=== PATIENT | male | born 1970 | race African-American/Black ===

== ENCOUNTER → 2016-12-02 | Outpatient (CLI) | payer MEDICARE, MEDICAID ==
[2016-12-02 10:10] LABS: HEMATOCRIT 37.8 % (37.9-51.0); HEMOGLOBIN 12.2 g/dL (13.5-17.0); HGB HCT DIFFERENCE -1.2; MEAN CORPUSCULAR HEMOGLOBIN 27.9 pg (27.0-33.4); MEAN CORPUSCULAR HGB CONC 32.3 g/dL (32.0-36.0); MEAN CORPUSCULAR VOLUME 87 fl (80-97); RED BLOOD COUNT 4.37 10^6/uL (4.35-5.55); RED CELL DISTRIBUTION WIDTH 13.9 % (11.5-14.0); WHITE BLOOD COUNT 4.3 10^3/uL (4.0-10.5)
[2016-12-02 10:37] LABS: ALANINE AMINOTRANSFERASE 31 U/L (21-72); ALBUMIN 3.8 g/dL (3.5-5.0); ALKALINE PHOSPHATASE 134 U/L (38-126); ANION GAP 11 (5-19); ASPARTATE AMINO TRANSFERASE 25 U/L (17-59); BILIRUBIN,TOTAL 0.4 mg/dL (0.2-1.3); BLOOD UREA NITROGEN 21 mg/dL (7-20); CALCIUM 9.5 mg/dL (8.4-10.2); CARBON DIOXIDE 28 mmol/L (22-30); CHLORIDE 96 mmol/L (98-107); CREATININE RESULT 1.68 mg/dL (0.52-1.25); POTASSIUM 5.6 mmol/L (3.6-5.0); SODIUM 135.4 mmol/L (137-145); TOTAL PROTEIN 7.3 g/dL (6.3-8.2)
[2016-12-02 11:03] LABS: GLUCOSE 554 mg/dL (75-110)
== END ==
LOC: OD 08:52
PROVIDERS: ATTEND Internal Medicine Nephrology
DX: N18.3 Chronic kidney disease, stage 3 (moderate) (principal); R80.9 Proteinuria, unspecified; D64.9 Anemia, unspecified; E87.5 Hyperkalemia
CPT/HCPCS: 36415; 80053; 85027

== ENCOUNTER → 2016-12-08 | Outpatient (CLI) | payer MEDICARE, MEDICAID ==
[2016-12-08 12:58] LABS: ANION GAP 10 (5-19); BLOOD UREA NITROGEN 24 mg/dL (7-20); CALCIUM 9.6 mg/dL (8.4-10.2); CARBON DIOXIDE 26 mmol/L (22-30); CHLORIDE 96 mmol/L (98-107); CREATININE RESULT 1.72 mg/dL (0.52-1.25); POTASSIUM 5.9 mmol/L (3.6-5.0); SODIUM 132.2 mmol/L (137-145)
[2016-12-08 13:28] LABS: GLUCOSE 464 mg/dL (75-110)
== END ==
LOC: OD 11:12
PROVIDERS: ATTEND Internal Medicine Nephrology
DX: E87.5 Hyperkalemia (principal); E87.1 Hypo-osmolality and hyponatremia; E11.9 Type 2 diabetes mellitus without complications
CPT/HCPCS: 36415; 80048

== ENCOUNTER 2016-12-10 16:13 | Emergency (ER) | payer MEDICARE, MEDICAID ==
--- NOTE | 2016-12-10 16:50 | ER Document Report ---
ED Medical Screen (RME) - General Stated Complaint: HIGH SUGAR LEVEL Notes: 46 yo male c/o elevated blood sugar and right hip pain. + hx/o IDDM, taking meds as prescribed. BS today was 564 per EMS, 10u Humilin Insulin given by EMS. + nausea, no abdominal pain. pt reports having labs and hip xray done yesterday. pt is HIV positive TRAVEL OUTSIDE OF THE [place] IN LAST 30 DAYS: No - Related Data Allergies/Adverse Reactions: Penicillins Allergy (Verified 12/10/16 16:47) rash Past Medical History - Social History Family history: None - Past Medical History Cardiac Medical History: Reports: Hx Coronary Artery Disease, Hx Heart Attack, Hx Hypercholesterolemia, Hx Hypertension, Hx Peripheral Vascular Disease, Hx Pulmonary Embolism Pulmonary Medical History: Reports: Hx COPD Neurological Medical History: Endocrine Medical History: Reports: Hx Diabetes Mellitus Type 1, Hx Diabetes Mellitus Type 2 Renal/ Medical History: Reports: Hx Renal Insufficiency - Stage III renal failure Malignancy Medical History: GI Medical History: Reports: Hx Hepatitis Musculoskeltal Medical History: Reports Hx Arthritis, Reports Hx Musculoskeletal Trauma Skin Medical History: Psychiatric Medical History: Reports: Hx Anxiety, Hx Bipolar Disorder, Hx Depression, Hx Post Traumatic Stress Disorder Traumatic Medical History: Reports: Hx Fractures - Knee pelvis and hand Infectious Medical History: Reports: Hx Hepatitis, Hx HIV - Patient reports no detectable viral count Past Surgical History: Reports: Hx Oral Surgery - Removal of most of teeth, Hx Orthopedic Surgery - right knee replacement, Other - Laser eye surgery - Immunizations Immunizations up to date: Yes Hx Diphtheria, Pertussis, Tetanus Vaccination: Yes Physical Exam - Vital signs Vitals: Temp Pulse Resp BP Pulse Ox 97.9 F 74 18 112/79 94 12/10/16 16:34 12/10/16 16:34 12/10/16 16:34 12/10/16 16:34 12/10/16 16:34 Course - Vital Signs Vital signs: Temp Pulse Resp BP Pulse Ox 97.9 F 74 18 112/79 94 12/10/16 16:34 12/10/16 16:34 12/10/16 16:34 12/10/16 16:34 12/10/16 16:34
[2016-12-10 17:33] LABS: APPEARANCE,URINE CLEAR; BILIRUBIN,URINE NEGATIVE (NEGATIVE); GLUCOSE, URINE >=500 mg/dL (NEGATIVE); KETONES,URINE NEGATIVE (NEGATIVE); LEUKOCYTE ESTERASE,URINE NEGATIVE (NEGATIVE); NITRITE,URINE NEGATIVE (NEGATIVE); PROTEIN,URINE NEGATIVE (NEGATIVE); URINE SPECIFIC GRAVITY 1.026; UROBILINOGEN,URINE NEGATIVE mg/dL (<2.0)
[2016-12-10 17:41] LABS: ABSOLUTE BASOPHILS # (AUTO) 0.1 10^3/uL (0.0-0.2); ABSOLUTE EOSINOPHILS # (AUTO) 0.2 10^3/uL (0.0-0.6); ABSOLUTE LYMPHOCYTES (AUTO) 1.6 10^3/uL (0.5-4.7); ABSOLUTE MONOCYTES (AUTO) 0.8 10^3/uL (0.1-1.4); ABSOLUTE NEUT (AUTO) 3.3 10^3/uL (1.7-8.2); BASOPHILS % (AUTO) 1.3 % (0-2); EOSINOPHILS % (AUTO) 2.6 % (0-6); HEMATOCRIT 36.7 % (37.9-51.0); HEMOGLOBIN 12.2 g/dL (13.5-17.0); HGB HCT DIFFERENCE -0.1; LYMPHOCYTES % (AUTO) 27.6 % (13-45); MEAN CORPUSCULAR HEMOGLOBIN 28.4 pg (27.0-33.4); MEAN CORPUSCULAR HGB CONC 33.1 g/dL (32.0-36.0); MEAN CORPUSCULAR VOLUME 86 fl (80-97); MONOCYTES % (AUTO) 12.8 % (3-13); RED BLOOD COUNT 4.29 10^6/uL (4.35-5.55); RED CELL DISTRIBUTION WIDTH 13.9 % (11.5-14.0); SEGMENTED NEUTROPHILS % (AUTO) 55.7 % (42-78); WHITE BLOOD COUNT 5.9 10^3/uL (4.0-10.5)
[2016-12-10 17:50] LABS: ALANINE AMINOTRANSFERASE 48 U/L (21-72); ALKALINE PHOSPHATASE 146 U/L (38-126); ANION GAP 15 (5-19); ASPARTATE AMINO TRANSFERASE 28 U/L (17-59); BILIRUBIN,TOTAL 0.4 mg/dL (0.2-1.3); BLOOD UREA NITROGEN 30 mg/dL (7-20); CALCIUM 8.9 mg/dL (8.4-10.2); CARBON DIOXIDE 21 mmol/L (22-30); CHLORIDE 97 mmol/L (98-107); CREATININE RESULT 1.93 mg/dL (0.52-1.25); POTASSIUM 4.7 mmol/L (3.6-5.0); SODIUM 133.3 mmol/L (137-145); TOTAL PROTEIN 7.8 g/dL (6.3-8.2)
[2016-12-10 18:02] LABS: GLUCOSE 551 mg/dL (75-110)
[2016-12-10] MEDS ORDERED: NORMAL SALINE 1000 ML 1,000 ML IV PRN (23:23)
[2016-12-10 23:31] VITALS: BP 134/99
[2016-12-10] MEDS ORDERED: INSULIN REG, HUMAN 100 UNIT/ML 3 ML VIAL (PYX) SUBCUT ONE (23:45)
--- NOTE | 2016-12-10 23:51 | ER Document Report ---
ED General - General Chief Complaint: High Blood Sugar Stated Complaint: HIGH SUGAR LEVEL Notes: Patient is a 46-year-old male who presents with complaint of high blood sugar and some right back pain that radiates to right hip. No weakness or numbness into the leg. No pain radiating into the leg itself. Patient denies recent fevers or infections. Back pain has been there for over a month. He does have a history of HIV. He did have x-rays performed and is back to days ago by his primary care doctor. Showed what sounds to be degenerative joint disease based on what the patient says his primary care doctor told him. Today he notices blood sugars were high. His blood sugar was over 500 and therefore he gave himself 10 units of insulin and called the ambulance. Patient has been diabetic for 6 years. He's never had problems with his blood sugar in the thigh before. He denies missing any dosages of his insulin. TRAVEL OUTSIDE OF THE [place] IN LAST 30 DAYS: No - Related Data Allergies/Adverse Reactions: Penicillins Allergy (Verified 12/10/16 16:47) rash Past Medical History - Social History Smoking Status: Current Every Day Smoker Chew tobacco use (# tins/day): Yes Frequency of alcohol use: Social Drug Abuse: Cocaine, Marijuana Family History: CAD, DM, Hyperlipidemia, Hypertension Patient has suicidal ideation: No Patient has homicidal ideation: No - Past Medical History Cardiac Medical History: Reports: Hx Coronary Artery Disease, Hx Heart Attack, Hx Hypercholesterolemia, Hx Hypertension, Hx Peripheral Vascular Disease, Hx Pulmonary Embolism Pulmonary Medical History: Reports: Hx COPD Neurological Medical History: Endocrine Medical History: Reports: Hx Diabetes Mellitus Type 1, Hx Diabetes Mellitus Type 2 Renal/ Medical History: Reports: Hx Renal Insufficiency - Stage III renal failure Malignancy Medical History: GI Medical History: Reports: Hx Hepatitis Musculoskeltal Medical History: Reports Hx Arthritis, Reports Hx Musculoskeletal Trauma Skin Medical History: Psychiatric Medical History: Reports: Hx Anxiety, Hx Bipolar Disorder, Hx Depression, Hx Post Traumatic Stress Disorder Traumatic Medical History: Reports: Hx Fractures - Knee pelvis and hand Infectious Medical History: Reports: Hx Hepatitis, Hx HIV - Patient reports no detectable viral count Past Surgical History: Reports: Hx Oral Surgery - Removal of most of teeth, Hx Orthopedic Surgery - right knee replacement, rt toe amputation, Other - Laser eye surgery - Immunizations Immunizations up to date: Yes Hx Diphtheria, Pertussis, Tetanus Vaccination: Yes Hx Pneumococcal Vaccination: 11/09/13 Review of Systems - Review of Systems Notes: My Normal Review Basic REVIEW OF SYSTEMS: CONSTITUTIONAL : Denies fever, chills, or sweats. Denies recent illness. EENT: Denies eye, ear, throat, or mouth pain or symptoms. Denies nasal or sinus congestion. CARDIOVASCULAR: Denies chest pain. RESPIRATORY: Denies cough, cold, or chest congestion. Denies shortness of breath, difficulty breathing, or wheezing. GASTROINTESTINAL: Denies abdominal pain. Denies nausea, vomiting, or diarrhea. Denies constipation. Last BM: MUSCULOSKELETAL: Right-sided low back pain. SKIN: Denies rash or skin lesions. HEMATOLOGIC : Denies easy bruising or bleeding. LYMPHATIC: Denies swollen, enlarged glands. NEUROLOGICAL: Denies altered mental status or loss of consciousness. Denies headache. Denies weakness or paralysis or loss of use of either side. Denies problems with gait or speech. Denies sensory or motor loss. ALL OTHER SYSTEMS REVIEWED AND NEGATIVE. Physical Exam - Vital signs Vitals: Temp Pulse Resp BP Pulse Ox 97.9 F 74 18 112/79 94 12/10/16 16:34 12/10/16 16:34 12/10/16 16:34 12/10/16 16:34 12/10/16 16:34 - Notes Notes: General Appearance: Well nourished, alert, cooperative, no acute distress, mild to moderate obvious discomfort. Vitals: reviewed, See vital signs table. Head: no swelling or tenderness to the head Eyes: PERRL, EOMI, Conjuctiva clear Mouth: No decreasd moisture Neck: Supple, no neck tenderness, No thyromegaly Lungs: No wheezing, No rales, No rhonci, No accessory muscle use, good air exchange bilaterally. Heart: Normal rate, Regular rythm, No murmur, no rub Abdomen: Normal BS, soft, No rigidity, No abdominal tenderness, No guarding, no rebound, no abdominal masses, no organomegaly Back: Pain to palpation of the right lumbar paraspinal musculature. No midline tenderness to palpation of the back. No redness or swelling over the back. Extremities: strength 5/5 in all extremities, good pulses in all extremities, no swelling or tenderness in the extremities, no edema. Good strength in both lower extremities. Good distal sensation. Skin: warm, dry, appropriate color, no rash Neuro: speech clear, oriented x 3, normal affect, responds appropriately to questions. Course - Vital Signs Vital signs: Temp Pulse Resp BP Pulse Ox 97.9 F 71 16 134/99 H 97 12/10/16 16:34 12/10/16 23:29 12/10/16 23:29 12/10/16 23:29 12/10/16 23:29 - Laboratory Result Diagrams: 12/10/16 17:15 12/11/16 00:09 Laboratory results interpreted by me: 12/10/16 12/10/16 12/10/16 17:15 17:15 17:15 RBC 4.29 L Hgb 12.2 L Hct 36.7 L Sodium 133.3 L Chloride 97 L Carbon Dioxide 21 L BUN 30 H Creatinine 1.93 H Est GFR ( Amer) 45 L Est GFR (Non-Af Amer) 37 L Glucose 551 H* POC Glucose Alkaline Phosphatase 146 H Urine Glucose (UA) >=500 H 12/10/16 12/11/16 23:41 00:09 RBC Hgb Hct Sodium Chloride Carbon Dioxide BUN 28 H Creatinine 1.80 H Est GFR ( Amer) 49 L Est GFR (Non-Af Amer) 40 L Glucose 191 H POC Glucose 197 H Alkaline Phosphatase Urine Glucose (UA) - Transfer of Care Notes: 12/11/16 07:57 Patient's having back pain seems consistent with his chronic hip and back pain is had for over a month now. I encouraged him to continue follow-up with Dr. good who is working up. Informed him that he may eventually an MRI of his symptoms to continue. Currently has no signs or findings consistent with spinal cord impingement. He has no weakness or numbness in his legs, no loss of bowel control, no urinary retention. He has no signs infection and that he has no fever, leukocytosis, and no redness or swelling to the back or hip.His blood sugar was elevated and that is why he came to ER. His blood sugar improves Dk with the insulin that he took just prior to arrival. I did give him some IV fluids. I did recheck his chemistry panel. He is not acidotic. Patient is safe to be discharged home. Patient encouraged to return to the ER immediately if has worsening of his blood sugar, fevers, or feels unwell. Patient current return to ER if has worsening back pain, loss of bowel control, urine retention, or leg weakness. Patient agrees with plan and will be discharged home. 12/11/16 07:59 Dictation of this chart was performed using voice recognition software; therefore, there may be some unintended grammatical errors. Discharge - Discharge Clinical Impression: Hyperglycemia Back pain Qualifiers: Back pain location: low back pain Chronicity: acute Back pain laterality: right Sciatica presence: with sciatica Sciatica laterality: sciatica of right side Qualified Code(s): M54.41 - Lumbago with sciatica, right side Condition: Good Disposition: HOME, SELF-CARE Instructions: Oral Narcotic Medication ([facility]) Additional Instructions: Please continue taking her insulin as prescribed. Please follow-up with her doctor in regards to continue management of your back pain which may eventually include an MRI. Please return to ER immediately if you have loss of bowel control, inability to urinate, fevers, increasing leg weakness, or feel further concerns. Please return to ER immediately if you have increasing blood sugar that is not responding to your insulin. Prescriptions: Hydrocodone/Acetaminophen [[place] 5-325 mg Tablet] 1 tab PO Q4 PRN #12 tablet PRN Reason: For Breakthrough Pain Forms: Return to Work Referrals: DORIE QUINTEROS, [facility] [Primary Care Provider] - Follow up in 3-5 days
[2016-12-11 00:28] LABS: ANION GAP 12 (5-19); BLOOD UREA NITROGEN 28 mg/dL (7-20); CALCIUM 8.9 mg/dL (8.4-10.2); CARBON DIOXIDE 25 mmol/L (22-30); CHLORIDE 103 mmol/L (98-107); GLUCOSE 191 mg/dL (75-110); POTASSIUM 4.1 mmol/L (3.6-5.0); SODIUM 139.6 mmol/L (137-145)
[2016-12-11] MEDS ORDERED: HYDROCODONE/ACETAMINOPHEN 5-325 MG 6 TAB/DSPK PO PRN (01:28)
== END 2016-12-11 01:20 | disposition home or self-care (01) ==
LOC: ER 16:13
DX: E11.65 Type 2 diabetes mellitus with hyperglycemia (principal); M54.41 Lumbago with sciatica, right side; F17.210 Nicotine dependence, cigarettes, uncomplicated; I25.10 Atherosclerotic heart disease of native coronary artery without angina pectoris; E78.00 Pure hypercholesterolemia, unspecified; I10 Essential (primary) hypertension; J44.9 Chronic obstructive pulmonary disease, unspecified; N19 Unspecified kidney failure; Z21 Asymptomatic human immunodeficiency virus [HIV] infection status; Z96.651 Presence of right artificial knee joint; Z79.4 Long term (current) use of insulin; Z88.0 Allergy status to penicillin; Z86.711 Personal history of pulmonary embolism; I25.2 Old myocardial infarction
CPT/HCPCS: 99285; 96360; 96361; 36415; 82962; 85025; 80048; 80053; 81001; A9270; J7030; J1815

== ENCOUNTER → 2016-12-15 | Outpatient (CLI) | payer MEDICARE, MEDICAID ==
[2016-12-15 15:15] LABS: ANION GAP 10 (5-19); BLOOD UREA NITROGEN 22 mg/dL (7-20); CALCIUM 9.3 mg/dL (8.4-10.2); CARBON DIOXIDE 27 mmol/L (22-30); CHLORIDE 100 mmol/L (98-107); CREATININE RESULT 1.63 mg/dL (0.52-1.25); GLUCOSE 354 mg/dL (75-110); POTASSIUM 5.5 mmol/L (3.6-5.0); SODIUM 137.4 mmol/L (137-145)
== END ==
LOC: OD 14:28
PROVIDERS: ATTEND Internal Medicine Nephrology
DX: E87.5 Hyperkalemia (principal); E87.1 Hypo-osmolality and hyponatremia; R73.9 Hyperglycemia, unspecified
CPT/HCPCS: 36415; 80048

== ENCOUNTER 2016-12-22 13:18 | Emergency (ER) | payer MEDICARE, MEDICAID ==
[2016-12-22] MEDS ORDERED: NORMAL SALINE 1000 ML 1,000 ML IV PRN (13:45)
[2016-12-22] MEDS ORDERED: OXYCODONE-ACETAMINOPHEN 5-325 MG TABLET PO ONE (14:09)
[2016-12-22] MEDS ORDERED: INSULIN REG, HUMAN 100 UNIT/ML 3 ML VIAL (PYX) SUBCUT ONE (14:09)
--- NOTE | 2016-12-22 14:09 | ER Document Report ---
[id number] SUGAR PROBLEM Mode of Arrival: Ambulatory Notes: 38-year-old male history of diabetes HIV presents with complaints of high blood sugar. Patient actually went to an urgent care for evaluation of hip and back pain which is acute on chronic. Patient denies any fevers chills nausea vomiting or diarrhea. Patient denies a history of DKA. On evaluation there is blood sugar was noted to be 500+ pt notes he takes 50 of insilin daily. TRAVEL OUTSIDE OF THE [place] IN LAST 30 DAYS: No - HPI Onset: Just prior to arrival Onset/Duration: Sudden Quality of pain: Achy Severity: Mild Pain Level: 1 Associated symptoms: None Exacerbated by: Movement Relieved by: Denies Similar symptoms previously: Yes Recently seen / treated by doctor: Yes - Related Data Allergies/Adverse Reactions: Penicillins Allergy (Verified 12/10/16 16:47) rash Past Medical History - Social History Smoking Status: Never Smoker Cigarette use (# per day): No Chew tobacco use (# tins/day): No Smoking Education Provided: No Family History: CAD, DM, Hyperlipidemia, Hypertension - Past Medical History Cardiac Medical History: Reports: Hx Coronary Artery Disease, Hx Heart Attack, Hx Hypercholesterolemia, Hx Hypertension, Hx Peripheral Vascular Disease, Hx Pulmonary Embolism Pulmonary Medical History: Reports: Hx COPD Neurological Medical History: Endocrine Medical History: Reports: Hx Diabetes Mellitus Type 1, Hx Diabetes Mellitus Type 2 Renal/ Medical History: Reports: Hx Renal Insufficiency - Stage III renal failure Malignancy Medical History: GI Medical History: Reports: Hx Hepatitis Musculoskeltal Medical History: Reports Hx Arthritis, Reports Hx Musculoskeletal Trauma Skin Medical History: Psychiatric Medical History: Reports: Hx Anxiety, Hx Bipolar Disorder, Hx Depression, Hx Post Traumatic Stress Disorder Traumatic Medical History: Reports: Hx Fractures - Knee pelvis and hand Infectious Medical History: Reports: Hx Hepatitis, Hx HIV - Patient reports no detectable viral count Past Surgical History: Reports: Hx Oral Surgery - Removal of most of teeth, Hx Orthopedic Surgery - right knee replacement, rt toe amputation, Other - Laser eye surgery - Immunizations Immunizations up to date: Yes Hx Diphtheria, Pertussis, Tetanus Vaccination: Yes Hx Pneumococcal Vaccination: 11/09/13 Review of Systems - Review of Systems Notes: REVIEW OF SYSTEMS: CONSTITUTIONAL : Denies fever, chills, or sweats. Denies recent illness. EENT: Denies eye, ear, throat, or mouth pain or symptoms. Denies nasal or sinus congestion or discharge. Denies throat, tongue, or mouth swelling or difficulty swallowing. CARDIOVASCULAR: Denies chest pain. Denies palpitations or racing or irregular heart beat. Denies ankle edema. RESPIRATORY: Denies cough, cold, or chest congestion. Denies shortness of breath, difficulty breathing, or wheezing. GASTROINTESTINAL: Denies abdominal pain or distention. Denies nausea, vomiting , or diarrhea. Denies blood in vomitus, stools, or per rectum. Denies black, tarry stools. Denies constipation. GENITOURINARY: Denies difficulty urinating, painful urination, burning, frequency, blood in urine, or discharge. MUSCULOSKELETAL: Admits to hip and back pain SKIN: Denies rash, lesions or sores. HEMATOLOGIC : Denies easy bruising or bleeding. LYMPHATIC: Denies swollen, enlarged glands. NEUROLOGICAL: Denies confusion or altered mental status. Denies passing out or loss of consciousness. Denies dizziness or lightheadedness. Denies headache. Denies weakness or paralysis or loss of use of either side. Denies problems with gait or speech. Denies sensory loss, numbness, or tingling. Denies seizures. PSYCHIATRIC: Denies anxiety or stress. Denies depression, suicidal ideation, or homicidal ideation. ALL OTHER SYSTEMS REVIEWED AND NEGATIVE. Dictation was performed using [employer] voice recognition software PHYSICAL EXAMINATION: GENERAL: Well-appearing, well-nourished and in no acute distress. HEAD: Atraumatic, normocephalic. EYES: Pupils equal round and reactive to light, extraocular movements intact, sclera anicteric, conjunctiva are normal. ENT: Nares patent, oropharynx clear without exudates. Moist mucous membranes. NECK: Normal range of motion, supple without lymphadenopathy LUNGS: Breath sounds clear to auscultation bilaterally and equal. No wheezes rales or rhonchi. HEART: Regular rate and rhythm without murmurs ABDOMEN: Soft, nontender, nondistended abdomen. No guarding, no rebound. No masses appreciated. Musculoskeletal: Normal range of motion, no pitting or edema. No cyanosis. NEUROLOGICAL: Cranial nerves grossly intact. Normal speech, normal gait. Normal sensory, motor exams PSYCH: Normal mood, normal affect. SKIN: Warm, Dry, normal turgor, no rashes or lesions noted. Physical Exam - Vital signs Vitals: Resp BP 18 132/102 H 12/22/16 15:01 12/22/16 15:01 Course - Re-evaluation Re-evalutation: 12/22/16 15:04 Patient's blood sugar was noted to be significantly elevated, he has no nausea vomiting or signs of DKA at this time. Patient will be given insulin fluids and is otherwise stable. He will be treated for his back pain and hip pain which are his concerns at this time 12/22/16 15:38 Patient noted to be hyperkalemic and hypoglycemic, he appears to have had multiple similar episodes in the past. Patient given IV fluids, recheck pending 12/22/16 16:55 On reevaluation patient's renal insufficiency hyperglycemia and hyperkalemia have all improved significantly. Patient has been instructed to follow-up with primary care physician tomorrow for reevaluation of labs or to return immediately if there is any worsening symptoms. Given the patient was asymptomatic when he arrived and did not expect patient to have any worsening complaints After performing a Medical Screening Examination, I estimate there is LOW risk for ACUTE CORONARY SYNDROME, RESPIRATORY FAILURE, SEPSIS OR MENINGITIS, thus I consider the discharge disposition reasonable. The patient and I have discussed the diagnosis and risks, and we agree with discharging home with close follow- up. We also discussed returning to the Emergency Department immediately if new or worsening symptoms occur. We have discussed the symptoms which are most concerning (e.g., changing or worsening pain, trouble swallowing or breathing, neck stiffness, fever) that necessitate immediate return. - Vital Signs Vital signs: Temp Pulse Resp BP Pulse Ox 18 132/102 H 12/22/16 15:01 12/22/16 15:01 - Laboratory Result Diagrams: 12/22/16 14:05 12/22/16 15:32 Laboratory results interpreted by me: 12/22/16 12/22/16 12/22/16 13:43 14:05 14:05 RBC 4.25 L Hgb 12.1 L Hct 36.7 L RDW 14.1 H Sodium 132.4 L Potassium 5.9 H Chloride 96 L Carbon Dioxide BUN 34 H Creatinine 1.79 H Est GFR ( Amer) 49 L Est GFR (Non-Af Amer) 41 L Glucose 522 H* POC Glucose 513 H* Calcium Alkaline Phosphatase 164 H Total Protein 8.5 H Albumin Urine Protein Urine Glucose (UA) 12/22/16 12/22/16 15:32 15:35 RBC Hgb Hct RDW Sodium 134.7 L Potassium 5.1 H Chloride Carbon Dioxide 19 L BUN 29 H Creatinine 1.41 H Est GFR ( Amer) Est GFR (Non-Af Amer) 54 L Glucose 336 H POC Glucose Calcium 8.2 L Alkaline Phosphatase Total Protein Albumin 3.3 L Urine Protein 30 H Urine Glucose (UA) >=500 H Discharge - Discharge Clinical Impression: Acute worsening of stage 3 chronic kidney disease, Hyperkalemia, HIV (human immunodeficiency virus infection), Hyperglycemia Condition: Stable Disposition: HOME, SELF-CARE Additional Instructions: Follow up tomorrow for repeat lab work with your primary care physician Referrals: DORIE QUINTEROS, [facility] [Primary Care Provider] - Follow up tomorrow
[2016-12-22 14:43] LABS: ABSOLUTE BASOPHILS # (AUTO) 0.1 10^3/uL (0.0-0.2); ABSOLUTE EOSINOPHILS # (AUTO) 0.1 10^3/uL (0.0-0.6); ABSOLUTE LYMPHOCYTES (AUTO) 1.2 10^3/uL (0.5-4.7); ABSOLUTE MONOCYTES (AUTO) 0.7 10^3/uL (0.1-1.4); ABSOLUTE NEUT (AUTO) 3.4 10^3/uL (1.7-8.2); BASOPHILS % (AUTO) 1.2 % (0-2); EOSINOPHILS % (AUTO) 2.2 % (0-6); HEMATOCRIT 36.7 % (37.9-51.0); HEMOGLOBIN 12.1 g/dL (13.5-17.0); HGB HCT DIFFERENCE -0.4; LYMPHOCYTES % (AUTO) 21.5 % (13-45); MEAN CORPUSCULAR HEMOGLOBIN 28.5 pg (27.0-33.4); MEAN CORPUSCULAR HGB CONC 33.1 g/dL (32.0-36.0); MEAN CORPUSCULAR VOLUME 86 fl (80-97); RED BLOOD COUNT 4.25 10^6/uL (4.35-5.55); RED CELL DISTRIBUTION WIDTH 14.1 % (11.5-14.0); SEGMENTED NEUTROPHILS % (AUTO) 62.1 % (42-78); WHITE BLOOD COUNT 5.4 10^3/uL (4.0-10.5)
[2016-12-22 14:55] LABS: ALANINE AMINOTRANSFERASE 42 U/L (21-72); ALBUMIN 4.6 g/dL (3.5-5.0); ALKALINE PHOSPHATASE 164 U/L (38-126); ANION GAP 10 (5-19); ASPARTATE AMINO TRANSFERASE 33 U/L (17-59); BILIRUBIN,TOTAL 0.6 mg/dL (0.2-1.3); BLOOD UREA NITROGEN 34 mg/dL (7-20); CALCIUM 10.1 mg/dL (8.4-10.2); CARBON DIOXIDE 26 mmol/L (22-30); CHLORIDE 96 mmol/L (98-107); CREATININE RESULT 1.79 mg/dL (0.52-1.25); POTASSIUM 5.9 mmol/L (3.6-5.0); SODIUM 132.4 mmol/L (137-145); TOTAL PROTEIN 8.5 g/dL (6.3-8.2)
[2016-12-22 15:06] LABS: GLUCOSE 522 mg/dL (75-110)
[2016-12-22 15:50] LABS: APPEARANCE,URINE CLEAR; BILIRUBIN,URINE NEGATIVE (NEGATIVE); GLUCOSE, URINE >=500 mg/dL (NEGATIVE); KETONES,URINE NEGATIVE (NEGATIVE); LEUKOCYTE ESTERASE,URINE NEGATIVE (NEGATIVE); NITRITE,URINE NEGATIVE (NEGATIVE); PROTEIN,URINE 30 mg/dL (NEGATIVE); URINE SPECIFIC GRAVITY 1.026; UROBILINOGEN,URINE NEGATIVE mg/dL (<2.0)
[2016-12-22 16:02] LABS: ALANINE AMINOTRANSFERASE 35 U/L (21-72); ALBUMIN 3.3 g/dL (3.5-5.0); ALKALINE PHOSPHATASE 121 U/L (38-126); ANION GAP 9 (5-19); ASPARTATE AMINO TRANSFERASE 23 U/L (17-59); BILIRUBIN,TOTAL 0.5 mg/dL (0.2-1.3); BLOOD UREA NITROGEN 29 mg/dL (7-20); CALCIUM 8.2 mg/dL (8.4-10.2); CARBON DIOXIDE 19 mmol/L (22-30); CHLORIDE 107 mmol/L (98-107); CREATININE RESULT 1.41 mg/dL (0.52-1.25); GLUCOSE 336 mg/dL (75-110); POTASSIUM 5.1 mmol/L (3.6-5.0); SODIUM 134.7 mmol/L (137-145); TOTAL PROTEIN 6.4 g/dL (6.3-8.2)
[2016-12-22] MEDS ORDERED: HYDROCODONE/ACETAMINOPHEN 5-325 MG 6 TAB/DSPK PO PRN (17:07)
[2016-12-22 17:16] VITALS: BP 130/95
== END 2016-12-22 17:16 | disposition home or self-care (01) ==
LOC: ER 13:18
DX: E11.65 Type 2 diabetes mellitus with hyperglycemia (principal); I12.9 Hypertensive chronic kidney disease with stage 1 through stage 4 chronic kidney disease, or unspecified chronic kidney disease; E11.22 Type 2 diabetes mellitus with diabetic chronic kidney disease; N18.3 Chronic kidney disease, stage 3 (moderate); E87.5 Hyperkalemia; Z79.4 Long term (current) use of insulin; M25.559 Pain in unspecified hip; M54.9 Dorsalgia, unspecified; G89.29 Other chronic pain; Z21 Asymptomatic human immunodeficiency virus [HIV] infection status; I25.10 Atherosclerotic heart disease of native coronary artery without angina pectoris; I25.2 Old myocardial infarction; J44.9 Chronic obstructive pulmonary disease, unspecified; Z86.711 Personal history of pulmonary embolism; Z88.0 Allergy status to penicillin
CPT/HCPCS: 99291; 96360; 36415; 82962; 85025; 80053; 81001; A9270 ×3; J7030; J1815

== ENCOUNTER 2016-12-27 11:10 | Emergency (ER) | payer MEDICARE, MEDICAID ==
--- NOTE | 2016-12-27 11:16 | ER Document Report ---
ED Medical Screen (RME) - General Stated Complaint: LEFT FOOT PAIN Mode of Arrival: Ambulatory Information source: Patient Notes: Patient presents with diabetic foot ulcers to left foot for the past week. Patient reports fever of 104 at home. Patient states blood sugars been running in the 500s. hx: Diabetes, high cholesterol, hypertension, HIV I have greeted and performed a rapid initial assessment of this patient. A comprehensive ED assessment and evaluation of the patient, analysis of test results and completion of the medical decision making process will be conducted by additional ED providers. TRAVEL OUTSIDE OF THE [place] IN LAST 30 DAYS: No - Related Data Allergies/Adverse Reactions: Penicillins Allergy (Verified 12/27/16 11:13) rash Past Medical History - Social History Family history: None - Past Medical History Cardiac Medical History: Reports: Hx Coronary Artery Disease, Hx Heart Attack, Hx Hypercholesterolemia, Hx Hypertension, Hx Peripheral Vascular Disease, Hx Pulmonary Embolism Pulmonary Medical History: Reports: Hx COPD Neurological Medical History: Endocrine Medical History: Reports: Hx Diabetes Mellitus Type 1, Hx Diabetes Mellitus Type 2 Renal/ Medical History: Reports: Hx Renal Insufficiency - Stage III renal failure Malignancy Medical History: GI Medical History: Reports: Hx Hepatitis Musculoskeltal Medical History: Reports Hx Arthritis, Reports Hx Musculoskeletal Trauma Skin Medical History: Psychiatric Medical History: Reports: Hx Anxiety, Hx Bipolar Disorder, Hx Depression, Hx Post Traumatic Stress Disorder Traumatic Medical History: Reports: Hx Fractures - Knee pelvis and hand Infectious Medical History: Reports: Hx Hepatitis, Hx HIV - Patient reports no detectable viral count Past Surgical History: Reports: Hx Oral Surgery - Removal of most of teeth, Hx Orthopedic Surgery - right knee replacement, rt toe amputation, Other - Laser eye surgery - Immunizations Immunizations up to date: Yes Hx Diphtheria, Pertussis, Tetanus Vaccination: Yes Physical Exam - Skin Skin irregularity: other - Diabetic foot ulcer to toes of left foot
[2016-12-27 11:41] LABS: ABSOLUTE BASOPHILS # (AUTO) 0.1 10^3/uL (0.0-0.2); ABSOLUTE EOSINOPHILS # (AUTO) 0.1 10^3/uL (0.0-0.6); ABSOLUTE LYMPHOCYTES (AUTO) 1.2 10^3/uL (0.5-4.7); ABSOLUTE NEUT (AUTO) 5.6 10^3/uL (1.7-8.2); BASOPHILS % (AUTO) 0.6 % (0-2); EOSINOPHILS % (AUTO) 1.8 % (0-6); HEMATOCRIT 34.1 % (37.9-51.0); HEMOGLOBIN 11.1 g/dL (13.5-17.0); HGB HCT DIFFERENCE -0.8; LYMPHOCYTES % (AUTO) 14.7 % (13-45); MEAN CORPUSCULAR HEMOGLOBIN 28.2 pg (27.0-33.4); MEAN CORPUSCULAR HGB CONC 32.6 g/dL (32.0-36.0); MEAN CORPUSCULAR VOLUME 87 fl (80-97); MONOCYTES % (AUTO) 12.2 % (3-13); RED BLOOD COUNT 3.94 10^6/uL (4.35-5.55); RED CELL DISTRIBUTION WIDTH 14.5 % (11.5-14.0); SEGMENTED NEUTROPHILS % (AUTO) 70.7 % (42-78); WHITE BLOOD COUNT 7.9 10^3/uL (4.0-10.5)
[2016-12-27 11:57] LABS: ALANINE AMINOTRANSFERASE 32 U/L (21-72); ALBUMIN 3.9 g/dL (3.5-5.0); ALKALINE PHOSPHATASE 120 U/L (38-126); ANION GAP 10 (5-19); ASPARTATE AMINO TRANSFERASE 23 U/L (17-59); BILIRUBIN,TOTAL 0.5 mg/dL (0.2-1.3); BLOOD UREA NITROGEN 26 mg/dL (7-20); CALCIUM 9.4 mg/dL (8.4-10.2); CARBON DIOXIDE 22 mmol/L (22-30); CHLORIDE 105 mmol/L (98-107); CREATININE RESULT 1.74 mg/dL (0.52-1.25); GLUCOSE 389 mg/dL (75-110); POTASSIUM 5.7 mmol/L (3.6-5.0); SODIUM 136.7 mmol/L (137-145); TOTAL PROTEIN 7.3 g/dL (6.3-8.2)
[2016-12-27 12:40] LABS: ADD ON TESTING BLD IN LAB ACKNOWLEDGE
[2016-12-27 12:53] LABS: MAGNESIUM 1.9 mg/dL (1.6-2.3)
--- NOTE | 2016-12-27 12:56 | ER Document Report ---
ED General - General Chief Complaint: Skin Sore(s) Stated Complaint: LEFT FOOT PAIN Time seen by provider: 12:20 Mode of Arrival: Ambulatory Information source: Patient, [facility] Records Notes: This 46-year-old male patient comes in from complaining of several day history of painful ulcer to the left foot and blood sugars running in the 500s. His history includes insulin-dependent diabetes for the past 6 years, coronary artery disease with prior ID, hepatitis, hyperlipidemia, chronic renal insufficiency, HIV positive, depression bipolar anxiety PTSD. He was seen here on 12/10/2016 with sugars around 500, he was seen again on sugars over 500. He claims he has not missed any insulin dosing, he is vague about follow-up with his primary care provider and has not had any adjustment to his medication regimen despite the elevated blood sugars. He had an A1c done on 01/18/2016 that was 7.2 and again on 08/27/2016 and was 7.9 He was asking for pain medication. Review of the [place] controlled substances reporting system shows some problems. He was receiving chronic pain management from the oncologist Dr. Campo, who cut him off at the end of October due to drug seeking from multiple providers. He fill prescriptions for 60 oxycodone 10 mg tablets and 60 OxyContin 20 mg tablets on 11/06/2016. He filled a prescription for 60 OxyContin 10 mg tablets on 1221 from a prescription he had been holding for a month. He had seen other providers in the interim to receive oxycodone tablets. TRAVEL OUTSIDE OF THE [place] IN LAST 30 DAYS: No - Related Data Allergies/Adverse Reactions: Penicillins Allergy (Verified 12/27/16 11:13) rash Past Medical History - General Information source: Patient - Social History Smoking Status: Current Every Day Smoker Cigarette use (# per day): Yes Chew tobacco use (# tins/day): No Smoking Education Provided: No Frequency of alcohol use: Occasional Drug Abuse: None, Cocaine, Marijuana Occupation: unemployed Family History: CAD, DM, Hyperlipidemia, Hypertension Patient has suicidal ideation: No Patient has homicidal ideation: No - Past Medical History Cardiac Medical History: Reports: Hx Coronary Artery Disease, Hx Heart Attack, Hx Hypercholesterolemia, Hx Hypertension, Hx Peripheral Vascular Disease, Hx Pulmonary Embolism Pulmonary Medical History: Reports: Hx COPD EENT Medical History: Reports: None Neurological Medical History: Reports: None Endocrine Medical History: Reports: Hx Diabetes Mellitus Type 2 - IDDM Renal/ Medical History: Reports: Hx Renal Insufficiency - Stage III renal failure Malignancy Medical History: GI Medical History: Reports: Hx Hepatitis Musculoskeltal Medical History: Reports Hx Arthritis, Reports Hx Musculoskeletal Trauma Skin Medical History: Psychiatric Medical History: Reports: Hx Anxiety, Hx Bipolar Disorder, Hx Depression, Hx Post Traumatic Stress Disorder Traumatic Medical History: Reports: Hx Fractures - Knee pelvis and hand Infectious Medical History: Reports: Hx Hepatitis, Hx HIV - Patient reports no detectable viral count Past Surgical History: Reports: Hx Oral Surgery - Removal of most of teeth, Hx Orthopedic Surgery - right knee replacement, rt toe amputation, Other - Laser eye surgery - Immunizations Immunizations up to date: Yes Hx Diphtheria, Pertussis, Tetanus Vaccination: Yes Hx Pneumococcal Vaccination: 11/09/13 Review of Systems - Review of Systems Constitutional: No symptoms reported EENT: No symptoms reported Cardiovascular: No symptoms reported Respiratory: No symptoms reported Gastrointestinal: Other - Increased thirst Genitourinary: Other - Increased urine output Musculoskeletal: See HPI Skin: No symptoms reported Hematologic/Lymphatic: No symptoms reported Neurological/Psychological: No symptoms reported Physical Exam - Vital signs Vitals: Temp Pulse Resp BP Pulse Ox 97.7 F 86 16 138/86 H 98 12/27/16 11:14 12/27/16 11:14 12/27/16 11:14 12/27/16 11:14 12/27/16 11:14 Interpretation: Normal - General General appearance: Appears well, Alert In distress: None - HEENT Head: Normocephalic, Atraumatic Eyes: Normal Pupils: PERRL Neck: Normal - Respiratory Respiratory status: No respiratory distress Breath sounds: Normal - Cardiovascular Rhythm: Regular Heart sounds: Normal auscultation Murmur: No - Abdominal Inspection: Obese Bowel sounds: Normal Tenderness: Nontender - Back Back: Normal - Extremities General upper extremity: Normal inspection General lower extremity: Other - Left foot has a large nontender bunion. The second toe has some excoriation skin breakdown over the dorsal medial aspect due to resting underneath the first toe. The third toe has more extensive skin breakdown over the distal dorsal medial aspect and medial aspect of the toe again due to pressure against the second toe. This has a bad odor and appears to be fungal. - Neurological Neuro grossly intact: Yes - Psychological Associated symptoms: Normal affect, Normal mood - Skin Skin Temperature: Warm Skin Moisture: Dry Skin Color: Normal Course - Vital Signs Vital signs: Temp Pulse Resp BP Pulse Ox 97.7 F 86 16 138/86 H 98 12/27/16 11:14 12/27/16 11:14 12/27/16 11:14 12/27/16 11:14 12/27/16 11:14 - Laboratory Result Diagrams: 12/27/16 11:26 12/27/16 11:26 Laboratory results interpreted by me: 12/27/16 12/27/16 12/27/16 11:26 11:26 11:26 RBC 3.94 L Hgb 11.1 L Hct 34.1 L RDW 14.5 H Sodium 136.7 L Potassium 5.7 H BUN 26 H Creatinine 1.74 H Est GFR ( Amer) 51 L Est GFR (Non-Af Amer) 42 L Glucose 389 H Hemoglobin A1c % 13.9 H Urine Protein Urine Glucose (UA) 12/27/16 12:53 RBC Hgb Hct RDW Sodium Potassium BUN Creatinine Est GFR ( Amer) Est GFR (Non-Af Amer) Glucose Hemoglobin A1c % Urine Protein 30 H Urine Glucose (UA) >=500 H - Diagnostic Test Radiology reviewed: Image reviewed, Reports reviewed - X-rays show soft tissue swelling of the second and third toes without evidence of osteomyelitis Discharge - Discharge Clinical Impression: Cellulitis of second toe, left, Cellulitis of third toe, left, Tinea pedis of left foot, Poorly controlled diabetes mellitus Condition: Stable Disposition: HOME, SELF-CARE Additional Instructions: Your exam shows that you have fungal infection with skin breakdown and probably secondary bacterial cellulitis of the second third toes on the left foot. Your blood sugars have been out of control for several months, your A1c is 13.9 today. It was 7.9 on 08/27/2016. Take the medication as prescribed. Clean your feet with warm soap and water. Place cotton between the toes and wear clean white socks. Elevate your feet all the time. Be sure to take your insulin and check your blood sugars regularly. Follow-up with your doctor Thursday and take copies of your lab work with you. Prescriptions: Doxycycline Hyclate 100 mg PO BID #20 tablet. Terbinafine HCl [Lamisil 250 mg Tablet] 250 mg PO DAILY #30 tablet
[2016-12-27] MEDS ORDERED: HYDROCODONE/ACETAMINOPHEN 5-325 MG TABLET PO ONE (12:58)
[2016-12-27 14:01] LABS: APPEARANCE,URINE CLEAR; BILIRUBIN,URINE NEGATIVE (NEGATIVE); GLUCOSE, URINE >=500 mg/dL (NEGATIVE); KETONES,URINE NEGATIVE (NEGATIVE); LEUKOCYTE ESTERASE,URINE NEGATIVE (NEGATIVE); NITRITE,URINE NEGATIVE (NEGATIVE); PROTEIN,URINE 30 mg/dL (NEGATIVE); URINE SPECIFIC GRAVITY 1.023; UROBILINOGEN,URINE NEGATIVE mg/dL (<2.0)
[2016-12-27 14:17] LABS: URINE BARBITURATES SCREEN NEGATIVE; URINE METHADONE SCREEN NEGATIVE; URINE OPIATES LOW NEGATIVE; URINE PHENCYCLIDINE SCREEN NEGATIVE
[2016-12-27 14:59] VITALS: BP 114/80
== END 2016-12-27 14:56 | disposition home or self-care (01) ==
LOC: ER 11:10
DX: L03.032 Cellulitis of left toe (principal); B35.3 Tinea pedis; F17.210 Nicotine dependence, cigarettes, uncomplicated; E11.22 Type 2 diabetes mellitus with diabetic chronic kidney disease; I12.9 Hypertensive chronic kidney disease with stage 1 through stage 4 chronic kidney disease, or unspecified chronic kidney disease; N18.3 Chronic kidney disease, stage 3 (moderate); I25.10 Atherosclerotic heart disease of native coronary artery without angina pectoris; J44.9 Chronic obstructive pulmonary disease, unspecified; E78.00 Pure hypercholesterolemia, unspecified; Z79.4 Long term (current) use of insulin; Z86.711 Personal history of pulmonary embolism; Z21 Asymptomatic human immunodeficiency virus [HIV] infection status; Z96.651 Presence of right artificial knee joint; Z88.0 Allergy status to penicillin; I25.2 Old myocardial infarction
CPT/HCPCS: 99283; 36415; 87040; 87070; 87205; 83735; 85025; 87077; 80053; 81001; 87186; 80307; 83036; 73630; 73660; A9270

== ENCOUNTER 2016-12-28 13:14 | Emergency (ER) | payer MEDICARE, MEDICAID ==
--- NOTE | 2016-12-28 13:24 | ER Document Report ---
ED Medical Screen (RME) - General Stated Complaint: FOOT PAIN Mode of Arrival: Medic Information source: Patient Notes: Patient complains of worsening infection to left foot. Patient was treated for diabetic foot ulcer yesterday in the emergency department. Blood sugar was 392 per EMS. hx: Diabetic, cocaine abuse, HIV I have greeted and performed a rapid initial assessment of this patient. A comprehensive ED assessment and evaluation of the patient, analysis of test results and completion of the medical decision making process will be conducted by additional ED providers. TRAVEL OUTSIDE OF THE [place] IN LAST 30 DAYS: No - Related Data Allergies/Adverse Reactions: Penicillins Allergy (Verified 12/27/16 11:13) rash Past Medical History - Social History Family history: None - Past Medical History Cardiac Medical History: Reports: Hx Coronary Artery Disease, Hx Heart Attack, Hx Hypercholesterolemia, Hx Hypertension, Hx Peripheral Vascular Disease, Hx Pulmonary Embolism Pulmonary Medical History: Reports: Hx COPD Neurological Medical History: Endocrine Medical History: Reports: Hx Diabetes Mellitus Type 1, Hx Diabetes Mellitus Type 2 - IDDM Renal/ Medical History: Reports: Hx Renal Insufficiency - Stage III renal failure Malignancy Medical History: GI Medical History: Reports: Hx Hepatitis Musculoskeltal Medical History: Reports Hx Arthritis, Reports Hx Musculoskeletal Trauma Skin Medical History: Psychiatric Medical History: Reports: Hx Anxiety, Hx Bipolar Disorder, Hx Depression, Hx Post Traumatic Stress Disorder Traumatic Medical History: Reports: Hx Fractures - Knee pelvis and hand Infectious Medical History: Reports: Hx Hepatitis, Hx HIV - Patient reports no detectable viral count Past Surgical History: Reports: Hx Oral Surgery - Removal of most of teeth, Hx Orthopedic Surgery - right knee replacement, rt toe amputation, Other - Laser eye surgery - Immunizations Immunizations up to date: Yes Hx Diphtheria, Pertussis, Tetanus Vaccination: Yes Physical Exam - Skin Skin irregularity: other - Wound to left foot with swelling
[2016-12-28 14:32] LABS: ABSOLUTE BASOPHILS # (AUTO) 0.1 10^3/uL (0.0-0.2); ABSOLUTE EOSINOPHILS # (AUTO) 0.1 10^3/uL (0.0-0.6); ABSOLUTE LYMPHOCYTES (AUTO) 1.1 10^3/uL (0.5-4.7); ABSOLUTE NEUT (AUTO) 7.3 10^3/uL (1.7-8.2); BASOPHILS % (AUTO) 0.6 % (0-2); EOSINOPHILS % (AUTO) 1.4 % (0-6); HEMATOCRIT 36.9 % (37.9-51.0); HGB HCT DIFFERENCE -0.9; LYMPHOCYTES % (AUTO) 11.4 % (13-45); MEAN CORPUSCULAR HGB CONC 32.6 g/dL (32.0-36.0); MEAN CORPUSCULAR VOLUME 86 fl (80-97); MONOCYTES % (AUTO) 10.8 % (3-13); RED CELL DISTRIBUTION WIDTH 14.3 % (11.5-14.0); SEGMENTED NEUTROPHILS % (AUTO) 75.8 % (42-78); WHITE BLOOD COUNT 9.6 10^3/uL (4.0-10.5)
[2016-12-28 14:45] LABS: ALANINE AMINOTRANSFERASE 39 U/L (21-72); ALBUMIN 3.6 g/dL (3.5-5.0); ALKALINE PHOSPHATASE 128 U/L (38-126); ANION GAP 10 (5-19); ASPARTATE AMINO TRANSFERASE 21 U/L (17-59); BILIRUBIN,TOTAL 0.5 mg/dL (0.2-1.3); BLOOD UREA NITROGEN 19 mg/dL (7-20); CALCIUM 9.7 mg/dL (8.4-10.2); CARBON DIOXIDE 26 mmol/L (22-30); CHLORIDE 99 mmol/L (98-107); CREATININE RESULT 1.56 mg/dL (0.52-1.25); GLUCOSE 364 mg/dL (75-110); POTASSIUM 5.4 mmol/L (3.6-5.0); SODIUM 135.4 mmol/L (137-145); TOTAL PROTEIN 7.9 g/dL (6.3-8.2)
[2016-12-28] MEDS ORDERED: CEPHALEXIN 500 MG CAPSULE PO ONE (18:41)
[2016-12-28] MEDS ORDERED: INSULIN LISPRO 100 UNIT/ML 3 ML VIAL SUBCUT ONE (18:42)
[2016-12-28] MEDS ORDERED: OXYCODONE-ACETAMINOPHEN 5-325 MG TABLET PO ONE (18:42)
[2016-12-28 18:45] VITALS: BP 144/90
--- NOTE | 2016-12-28 18:46 | ER Document Report ---
ED General - General Chief Complaint: Wound Recheck Stated Complaint: FOOT PAIN Mode of Arrival: Medic Notes: Patient is a 46-year-old male with past medical history of insulin-dependent diabetes, peripheral arterial disease, chronic cocaine abuse who presents again today with concerns of a wound infection of his left second and third toe. He was seen yesterday and started on doxycycline but states that this has not improved his symptoms. Notes a dull, constant, throbbing pain to the affected area. Nothing improves or worsens the pain. He still has not seen his primary care physician regarding his blood sugars or his foot infection. States he's had similar symptoms in the past that have resulted in amputation of digits. He denies any fever, constitutional symptoms, or spreading redness from the area. TRAVEL OUTSIDE OF THE [place] IN LAST 30 DAYS: No - Related Data Allergies/Adverse Reactions: Penicillins Allergy (Verified 12/28/16 13:23) rash Past Medical History - General Information source: Patient - Social History Smoking Status: Current Every Day Smoker Chew tobacco use (# tins/day): No Frequency of alcohol use: None Drug Abuse: Cocaine, Marijuana Family History: CAD, DM, Hyperlipidemia, Hypertension Patient has suicidal ideation: No Patient has homicidal ideation: No - Past Medical History Cardiac Medical History: Reports: Hx Coronary Artery Disease, Hx Heart Attack, Hx Hypercholesterolemia, Hx Hypertension, Hx Peripheral Vascular Disease, Hx Pulmonary Embolism Pulmonary Medical History: Reports: Hx COPD Neurological Medical History: Endocrine Medical History: Reports: Hx Diabetes Mellitus Type 1, Hx Diabetes Mellitus Type 2 - IDDM Renal/ Medical History: Reports: Hx Renal Insufficiency - Stage III renal failure Malignancy Medical History: GI Medical History: Reports: Hx Hepatitis Musculoskeltal Medical History: Reports Hx Arthritis, Reports Hx Musculoskeletal Trauma Skin Medical History: Psychiatric Medical History: Reports: Hx Anxiety, Hx Bipolar Disorder, Hx Depression, Hx Post Traumatic Stress Disorder Traumatic Medical History: Reports: Hx Fractures - Knee pelvis and hand Infectious Medical History: Reports: Hx Hepatitis, Hx HIV - Patient reports no detectable viral count Past Surgical History: Reports: Hx Oral Surgery - Removal of most of teeth, Hx Orthopedic Surgery - right knee replacement, rt toe amputation, Other - Laser eye surgery - Immunizations Immunizations up to date: Yes Hx Diphtheria, Pertussis, Tetanus Vaccination: Yes Hx Pneumococcal Vaccination: 11/09/13 Review of Systems - Review of Systems Notes: Constitutional: Negative for fever. HENT: Negative for sore throat. Eyes: Negative for visual changes. Cardiovascular: Negative for chest pain. Respiratory: Negative for shortness of breath. Gastrointestinal: Negative for abdominal pain, vomiting or diarrhea. Genitourinary: Negative for dysuria. Musculoskeletal: Negative for back pain. Skin: Positive for wound infection of the second and third digit of the left left foot Neurological: Negative for headaches, weakness or numbness. 10 point ROS negative except as marked above and in HPI. Physical Exam - Vital signs Vitals: Temp Pulse Resp BP Pulse Ox 97.9 F 92 16 130/82 H 97 12/28/16 13:23 12/28/16 13:23 12/28/16 13:23 12/28/16 13:23 12/28/16 13:23 Interpretation: Normal Notes: PHYSICAL EXAMINATION: GENERAL: Well-appearing, well-nourished and in no acute distress. HEAD: Atraumatic, normocephalic. EYES: Pupils equal round and reactive to light, extraocular movements intact, sclera anicteric, conjunctiva are normal. ENT: nares patent, oropharynx clear without exudates. Moist mucous membranes. NECK: Normal range of motion, supple without lymphadenopathy LUNGS: Breath sounds clear to auscultation bilaterally and equal. No wheezes rales or rhonchi. HEART: Regular rate and rhythm without murmurs ABDOMEN: Soft, nontender, normoactive bowel sounds. No guarding, no rebound. No masses appreciated. EXTREMITIES: Normal range of motion, no pitting or edema. No cyanosis. NEUROLOGICAL: No focal neurological deficits. Moves all extremities spontaneously and on command. PSYCH: Normal mood, normal affect. SKIN: Warm, Dry, normal turgor, there is a malodorous, purulent discharge coming from a wound between the second and third toe Course - Re-evaluation Re-evalutation: 12/29/16 02:59 Patient presents with ongoing wound infection of the left second and third digit. Vitals within normal limits. Leukocytosis on labs. X-rays obtained yesterday did not demonstrate any evidence of osteomyelitis is critical picture appears unchanged from yesterday. Have instructed the patient that it is critical that he obtain outpatient follow-up at wound care as well as his primary care physician for management of these wounds as well as his chronic, very poorly controlled diabetes. Also informed him that he needs to stop using cocaine. I have broadened his coverage to include better strep coverage using Keflex.At this time will discharge with return precautions and follow-up recommendations. Verbal discharge instructions given a the bedside and opportunity for questions given. Medication warnings reviewed. Patient is in agreement with this plan and has verbalized understanding of return precautions and the need for primary care follow-up in the next 24-72 hours. - Vital Signs Vital signs: Temp Pulse Resp BP Pulse Ox 99.3 F 95 18 144/90 H 97 12/28/16 18:25 12/28/16 18:25 12/28/16 18:25 12/28/16 18:25 12/28/16 18:25 - Laboratory Result Diagrams: 12/28/16 14:05 12/28/16 14:05 Laboratory results interpreted by me: 12/28/16 12/28/16 12/28/16 14:05 14:05 18:51 RBC 4.30 L Hgb 12.0 L Hct 36.9 L RDW 14.3 H Lymphocytes % 11.4 L Sodium 135.4 L Potassium 5.4 H Creatinine 1.56 H Est GFR ( Amer) 58 L Est GFR (Non-Af Amer) 48 L Glucose 364 H POC Glucose 251 H Alkaline Phosphatase 128 H Discharge - Discharge Clinical Impression: Cellulitis of third toe, left, Cellulitis of second toe, left, Cocaine abuse, Diabetic foot infection Condition: Fair Disposition: HOME, SELF-CARE Additional Instructions: You desperately need to control your blood sugars as this is preventing your foot wound healing. Please call your primary care doctor first thing in the morning and discuss adjustments to your insulin dosing as this foot will not heal if your blood sugars continue to be as elevated as they have been in your past several visits to the emergency department. Continue to take the doxycycline that you were prescribed yesterday. You are also be started on cephalexin also known as Keflex. Take this as directed in addition to the doxycycline. Keep your toes clean and dry. You also need to contact the wound center first thing in the morning and schedule an appointment for debridement and management of your foot wounds. Please understand that if you not manage these wounds correctly, you could lose these toes or even your foot. Return if you develop fever greater than 100.4, spreading redness from the area, persistent vomiting, pass out, or have any other symptoms that are worrisome to you. Prescriptions: Cephalexin Monohydrate [Keflex 500 mg Capsule] 500 mg PO QID #40 capsule Referrals: CASTRO QUINTEROS MD [ACTIVE STAFF] - Follow up as needed
== END 2016-12-28 19:03 | disposition home or self-care (01) ==
LOC: ER 13:14
DX: L03.032 Cellulitis of left toe (principal); E11.621 Type 2 diabetes mellitus with foot ulcer; F14.10 Cocaine abuse, uncomplicated; M79.673 Pain in unspecified foot; Z79.4 Long term (current) use of insulin; I73.9 Peripheral vascular disease, unspecified; F17.210 Nicotine dependence, cigarettes, uncomplicated
CPT/HCPCS: 99283; 36415; 87040; 87070; 87205; 82962; 85025; 87075; 87077; 80053; 87186; A9270 ×3; J1815

== ENCOUNTER 2016-12-31 15:20 | Inpatient (IN) | payer MEDICARE, MEDICAID ==
--- NOTE | 2016-12-31 15:26 | ER Document Report ---
ED Medical Screen (RME) - General Stated Complaint: LEFT FOOT PAIN Notes: 46 yo male with hx/o poorly controlled IDDM, CAD with CT, Hepatitis, HIV+, cocaine abuse, brought to ED by EMS for worsening infection to left foot. seen in ED on Thu and Thursday for same. Dx with tinea pedis with cellulitis. Currently on Keflex. A1C at last visit was 13.9. pt c/o pain to left foot and toes. no fever. + vomiting, but usually after antibiotic TRAVEL OUTSIDE OF THE [place] IN LAST 30 DAYS: No - Related Data Allergies/Adverse Reactions: Penicillins Allergy (Verified 12/31/16 15:24) rash Past Medical History - Social History Family history: None - Past Medical History Cardiac Medical History: Reports: Hx Coronary Artery Disease, Hx Heart Attack, Hx Hypercholesterolemia, Hx Hypertension, Hx Peripheral Vascular Disease, Hx Pulmonary Embolism Pulmonary Medical History: Reports: Hx COPD Neurological Medical History: Endocrine Medical History: Reports: Hx Diabetes Mellitus Type 1, Hx Diabetes Mellitus Type 2 - IDDM Renal/ Medical History: Reports: Hx Renal Insufficiency - Stage III renal failure Malignancy Medical History: GI Medical History: Reports: Hx Hepatitis Musculoskeltal Medical History: Reports Hx Arthritis, Reports Hx Musculoskeletal Trauma Skin Medical History: Psychiatric Medical History: Reports: Hx Anxiety, Hx Bipolar Disorder, Hx Depression, Hx Post Traumatic Stress Disorder Traumatic Medical History: Reports: Hx Fractures - Knee pelvis and hand Infectious Medical History: Reports: Hx Hepatitis, Hx HIV - Patient reports no detectable viral count Past Surgical History: Reports: Hx Oral Surgery - Removal of most of teeth, Hx Orthopedic Surgery - right knee replacement, rt toe amputation, Other - Laser eye surgery - Immunizations Immunizations up to date: Yes Hx Diphtheria, Pertussis, Tetanus Vaccination: Yes Physical Exam - Vital signs Vitals: Temp Pulse Resp BP Pulse Ox 98.0 F 81 20 122/82 100 12/31/16 15:24 12/31/16 15:24 12/31/16 15:24 12/31/16 15:24 12/31/16 15:24 Course - Vital Signs Vital signs: Temp Pulse Resp BP Pulse Ox 98.0 F 81 20 122/82 100 12/31/16 15:24 12/31/16 15:24 12/31/16 15:24 12/31/16 15:24 12/31/16 15:24
[2016-12-31 15:51] LABS: ABSOLUTE BASOPHILS # (AUTO) 0.1 10^3/uL (0.0-0.2); ABSOLUTE EOSINOPHILS # (AUTO) 0.2 10^3/uL (0.0-0.6); ABSOLUTE LYMPHOCYTES (AUTO) 1.2 10^3/uL (0.5-4.7); ABSOLUTE MONOCYTES (AUTO) 1.3 10^3/uL (0.1-1.4); ABSOLUTE NEUT (AUTO) 7.8 10^3/uL (1.7-8.2); BASOPHILS % (AUTO) 0.5 % (0-2); EOSINOPHILS % (AUTO) 2.2 % (0-6); HEMATOCRIT 32.2 % (37.9-51.0); HEMOGLOBIN 10.6 g/dL (13.5-17.0); HGB HCT DIFFERENCE -0.4; LYMPHOCYTES % (AUTO) 11.2 % (13-45); MEAN CORPUSCULAR HEMOGLOBIN 28.1 pg (27.0-33.4); MEAN CORPUSCULAR VOLUME 85 fl (80-97); MONOCYTES % (AUTO) 12.5 % (3-13); RED BLOOD COUNT 3.77 10^6/uL (4.35-5.55); SEGMENTED NEUTROPHILS % (AUTO) 73.6 % (42-78); WHITE BLOOD COUNT 10.5 10^3/uL (4.0-10.5)
[2016-12-31 16:09] LABS: ALANINE AMINOTRANSFERASE 42 U/L (21-72); ALBUMIN 3.4 g/dL (3.5-5.0); ALKALINE PHOSPHATASE 136 U/L (38-126); ANION GAP 10 (5-19); ASPARTATE AMINO TRANSFERASE 32 U/L (17-59); BILIRUBIN,TOTAL 0.3 mg/dL (0.2-1.3); BLOOD UREA NITROGEN 29 mg/dL (7-20); CALCIUM 8.9 mg/dL (8.4-10.2); CARBON DIOXIDE 27 mmol/L (22-30); CHLORIDE 98 mmol/L (98-107); CREATININE RESULT 2.01 mg/dL (0.52-1.25); GLUCOSE 254 mg/dL (75-110); POTASSIUM 5.3 mmol/L (3.6-5.0); SODIUM 135.2 mmol/L (137-145); TOTAL PROTEIN 7.4 g/dL (6.3-8.2)
--- NOTE | 2016-12-31 20:21 | ER Document Report ---
ED Extremity Problem, Lower <ARTURO WELDON - Last Filed: 12/31/16 22:25> - General Mode of Arrival: Ambulatory Information source: Patient TRAVEL OUTSIDE OF THE [place] IN LAST 30 DAYS: No - HPI Patient complains to provider of: Pain - left foot cellulitis Location: Foot - left Occurred: Other - 5 days ago Associated symptoms: Other - see above <MARLENAROSE - Last Filed: 01/05/17 14:46> - General Chief Complaint: Foot Pain Stated Complaint: LEFT FOOT PAIN Notes: 46 year old male presents to the ED complaining of left foot cellulitis that has been present since 12/27/2016. Patient was seen in the ED on 12/27/2016 and 12/28/2016 for the same complaint. Patient was referred to a vascular surgeon with antibiotics during his last visit. Today, the patient states that he did not read the discharge paperwork and did not follow up with the vascular surgeon or get his antibiotics filled. However, patient states that he is taking Clindamycin. Patient followed up with a primary care provider at [facility] and was advised to come to the ED. Patient reports that he took his diabetes medication today. (ROSE MENDIOLA) - Related Data Allergies/Adverse Reactions: Penicillins Allergy (Verified 12/31/16 15:24) rash Home Medications: Current Home Medications Alprazolam [Xanax] 2 mg PO BID 01/01/17 [History] Amitriptyline HCl [Elavil 25 mg Tablet] 25 mg PO DAILY 01/01/17 [History] Aripiprazole [Abilify 15 mg Tablet] 15 mg PO DAILY 01/01/17 [History] Aripiprazole [Abilify 20 mg Tablet] 20 mg PO DAILY 01/01/17 [History] Diclofenac Sodium [Diclofenac Sodium ER] 100 mg PO DAILY 01/01/17 [History] Fluoxetine HCl [Prozac] 40 mg PO QAM 01/01/17 [History] Gabapentin [Neurontin 400 mg Capsule] 400 mg PO QID 01/01/17 [History] Hydrocodone Bit/Acetaminophen [Hydrocodon-Acetaminophen 5-325] 1 tab PO Q4HP PRN 01/01/17 [History] Insulin Glargine,Hum.rec.anlog [Lantus Insulin 100 Unit/1 ml 10 ml] 45 units SQ QHS 01/01/17 [History] Lisinopril [Prinivil 5 mg Tablet] 5 mg PO QHS 01/01/17 [History] Oxycodone HCl 15 mg PO Q12HP PRN 01/01/17 [History] Oxycodone HCl [Oxy-Ir 5 mg Tablet] 5 mg PO Q12HP PRN 01/01/17 [History] Oxycodone HCl [Oxycodone HCl 10 MG Tablet] 10 mg PO Q4HP PRN 01/01/17 [History] Oxycodone HCl [Oxycontin] 10 g PO Q12 01/01/17 [History] Oxycodone HCl [Oxycontin] 20 mg PO Q12 01/01/17 [History] Simvastatin [Zocor 20 mg Tablet] 20 mg PO QHS 01/01/17 [History] Zolpidem Tartrate [Ambien] 15 mg PO HSP PRN 01/01/17 [History] Past Medical History - General Information source: Patient - Social History Smoking Status: Never Smoker Chew tobacco use (# tins/day): No Frequency of alcohol use: None Drug Abuse: None Family History: CAD, DM, Hyperlipidemia, Hypertension Patient has suicidal ideation: No Patient has homicidal ideation: No - Past Medical History Cardiac Medical History: Reports: Hx Coronary Artery Disease, Hx Heart Attack, Hx Hypercholesterolemia, Hx Hypertension, Hx Peripheral Vascular Disease, Hx Pulmonary Embolism Pulmonary Medical History: Reports: Hx COPD Neurological Medical History: Endocrine Medical History: Reports: Hx Diabetes Mellitus Type 1, Hx Diabetes Mellitus Type 2 - IDDM Renal/ Medical History: Reports: Hx Renal Insufficiency - Stage III renal failure Malignancy Medical History: GI Medical History: Reports: Hx Hepatitis Musculoskeltal Medical History: Reports Hx Arthritis, Reports Hx Musculoskeletal Trauma Skin Medical History: Psychiatric Medical History: Reports: Hx Anxiety, Hx Bipolar Disorder, Hx Depression, Hx Post Traumatic Stress Disorder Traumatic Medical History: Reports: Hx Fractures - Knee pelvis and hand Infectious Medical History: Reports: Hx Hepatitis, Hx HIV - Patient reports no detectable viral count Past Surgical History: Reports: Hx Oral Surgery - Removal of most of teeth, Hx Orthopedic Surgery - right knee replacement, rt toe amputation, Other - Laser eye surgery - Immunizations Immunizations up to date: Yes Hx Diphtheria, Pertussis, Tetanus Vaccination: Yes Hx Pneumococcal Vaccination: 11/09/13 <ROSE MENDIOLA - Last Filed: 01/05/17 14:46> Review of Systems - Review of Systems Constitutional: No symptoms reported EENT: No symptoms reported Cardiovascular: No symptoms reported Respiratory: No symptoms reported Gastrointestinal: No symptoms reported Genitourinary: No symptoms reported Male Genitourinary: No symptoms reported Musculoskeletal: See HPI, Other - left foot pain secondary to cellulitis Skin: No symptoms reported Hematologic/Lymphatic: No symptoms reported Neurological/Psychological: No symptoms reported <ROSE MENDIOLA - Last Filed: 01/05/17 14:46> Physical Exam - Vital signs Interpretation: Normal - General General appearance: Alert In distress: None - HEENT Head: Normocephalic, Atraumatic Eyes: Normal Extraocular movements intact: Yes Pupils: PERRL - Respiratory Respiratory status: No respiratory distress Breath sounds: Normal - Cardiovascular Rhythm: Regular Heart sounds: Normal auscultation - Abdominal Inspection: Normal - Back Back: Normal - Extremities General upper extremity: Normal inspection, Normal ROM General lower extremity: No: Normal inspection - see foot exam Foot: Other - left foot cellulitis and swelling. Distal tip of the second and third digit are gangrenous. Foul smelling with yellow discharge. No sign of necrotizing fascitis.. No: Normal - Neurological Neuro grossly intact: Yes Cognition: Normal Orientation: AAOx4 [place] Coma Scale Eye Opening: Spontaneous [place] Coma Scale Verbal: Oriented [place] Coma Scale Motor: Obeys Commands [place] Coma Scale Total: 15 Speech: Normal - Psychological Associated symptoms: Normal affect, Normal mood - Skin Skin Temperature: Warm Skin Moisture: Dry Skin Color: Normal <ROSE MENDIOLA - Last Filed: 01/05/17 14:46> - Vital signs Vitals: Temp Pulse Resp BP Pulse Ox 98.0 F 81 20 122/82 100 12/31/16 15:24 12/31/16 15:24 12/31/16 15:24 12/31/16 15:24 12/31/16 15:24 (ARTURO WELDON) Course - Laboratory Result Diagrams: 12/31/16 15:40 12/31/16 15:40 <ARTURO WELDON - Last Filed: 12/31/16 22:25> - Laboratory Result Diagrams: 12/31/16 15:40 01/05/17 06:00 - Consults Dr. Casey Time consulted: 22:26 <ROSE MENDIOLA - Last Filed: 01/05/17 14:46> - Re-evaluation Re-evalutation: 12/31/16 21:58 I personally performed the services described in the documentation, reviewed and edited the documentation which was dictated to my scribe in my presence, and it accurately records my words and actions. Patient presents emergency department for recurrent wound infection to the left foot. Patient has a complicated history of insulin-dependent diabetes poorly managed hemoglobin A1c is at 13-14 history of cocaine abuse [place] HIV. Seen and evaluated for the wound infection on BUN/creatinine renal insufficiency baseline then. Given antibiotics follow-up does not take the antibiotics does not follow up appropriately comes in now with the wound showing cellulitis atop the left foot second and third digit distal gangrenous foul-smelling drainage Dr. Chow who saw him last on came and evaluated the wound was able to give perspective as to what the wound clinic previously. Some on clindamycin and vancomycin. X-rays up until this point have been normal today's x-ray is not normal his gas preying gangrene formation soft tissue swelling. I spoke with Dr. Freeman he is going to see and evaluate the patient from a surgical standpoint and call Dr. Casey's can manage her from a medical standpoint. Right now patient is hemodynamically stable IV antibiotics and not septic or toxic. 12/31/16 22:02 12/31/16 22:[address] Casey for admission no response as of now (ARTURO WELDON) - Vital Signs Vital signs: Temp Pulse Resp BP Pulse Ox 97.9 F 73 14 140/85 H 100 01/05/17 12:00 01/05/17 12:00 01/05/17 12:00 01/05/17 12:00 01/05/17 12:00 (ARTURO WELDON) (ROSE MENDIOLA) - Laboratory Laboratory results interpreted by me: 12/31/16 12/31/16 01/01/17 15:40 15:40 05:50 RBC 3.77 L Hgb 10.6 L Hct 32.2 L Lymphocytes % 11.2 L APTT Sodium 135.2 L Potassium 5.3 H BUN 29 H 22 H Creatinine 2.01 H 1.42 H Est GFR ( Amer) 43 L Est GFR (Non-Af Amer) 36 L 53 L Glucose 254 H POC Glucose Alkaline Phosphatase 136 H Albumin 3.4 L 01/01/17 01/01/17 07:08 16:35 RBC Hgb Hct Lymphocytes % APTT 40.8 H Sodium Potassium BUN Creatinine Est GFR ( Amer) Est GFR (Non-Af Amer) Glucose POC Glucose 66 L Alkaline Phosphatase Albumin (ARTURO WELDON) (ROSE MENDIOLA) - Consults Dr. Casey Reason for consultation: 12/31/16 22:26 Dr. Casey was paged; no response. (ROSE MENDIOLA) Discharge <ARTURO WELDON - Last Filed: 12/31/16 22:25> <ROSE MENDIOLA - Last Filed: 01/05/17 14:46> - Discharge Disposition: ADMITTED INPATIENT Scribe Documentation - Scribe Written by Scribe:: Adolfo Brenner, 12/31/[id number] acting as scribe for :: Wander <ROSE MENDIOLA - Last Filed: 01/05/17 14:46>
[2016-12-31] MEDS ORDERED: VANCOMYCIN HCL INJ 1000 MG VIAL IV ONE (20:24)
[2016-12-31] MEDS ORDERED: CLINDAMYCIN PHOSPHATE INJ 300 MG/2 ML SDV IV ONE (20:25)
[2016-12-31] MEDS ORDERED: FENTANYL CITRATE INJ/PF 100 MCG/2 ML AMPUL IV ONE (22:37)
[2016-12-31 22:41] LABS: URINE BARBITURATES SCREEN NEGATIVE; URINE METHADONE SCREEN NEGATIVE; URINE OPIATES LOW NEGATIVE; URINE PHENCYCLIDINE SCREEN NEGATIVE
[2017-01-01] MEDS ORDERED: CLINDAMYCIN PHOSPHATE INJ 300 MG/2 ML SDV IV ONE (00:30)
--- NOTE | 2017-01-01 02:42 | PDOC CONSULTATION ---
History of Present Illness History of Present Illness: MILADYS LONDON III is a 46 year old -[place]os[place] Mos[place] male with multiple comorbidities including HIV, coronary artery disease status post heart attack, hyperlipidemia, hypertension, peripheral vascular disease, diabetic neuropathy, type II diabetes insulin-dependent, history of pulmonary embolism, history of pneumonia 1 year ago, history of seizures 4 years ago, stage III renal failure/renal insufficiency, anemia, osteoarthritis, anxiety, bipolar disorder, depression, posttraumatic stress disorder, retinopathy status post left eye surgery with left eye blindness, chronic back pain. He has previously undergone right third toe amputation within the last year for necrotic toe. He reports sustaining a small cut on his left third toe several weeks ago. He reports ignoring the cut for some time. Eventually toe started smelling foul. Due to his left eye blindness and poor vision in his right eye he was unable to seek changes in the toe. The toe continued to smell foul, and eventually began hurting. He felt pain in his toe despite his diabetic neuropathy, so a new the problem was becoming severe. He presented the emergency room and was given antibiotics with recommended follow-up. He did not fill the antibiotic prescription given by the ER, but rather took once he had at his house. He did not think the toe is improving had continued pain and again presented to the emergency room. He sees 2 or 3 different physicians at [facility]. He visited them today and was directed to the emergency room. In addition to the foul smell and pain of his third toe, he reports redness of 5 days duration, leg swelling of 5 days' duration, fevers and chills of 3 days duration, diarrhea 3 days duration and nausea and vomiting of 1 day duration. Extensive review of systems is also positive for chronic back pain and poor vision. ROS is otherwise negative. Past Medical History Cardiac Medical History: Reports: Coronary Artery Disease, Myocardial Infarction , Hyperlipidema, Hypertension, Peripheral Vascular Disease, Pulmonary Embolism Pulmonary Medical History: Reports: Pneumonia - 1 year ago EENT Medical History: Reports: Other - Left eye blindness, poor vision in right eye Neurological Medical History: Reports: Seizures - 4 years ago Endocrine Medical History: Reports: Diabetes Mellitus Type 2 - IDDM, Obesity Renal/ Medical History: Reports: Chronic Kidney Disease - Stage III Malignancy Medical History: GI Medical History: Musculoskeltal Medical History: Reports: Arthritis, Other - Chronic back pain Psychiatric Medical History: Reports: Bipolar Disorder, Depression, Post Traumatic Stress Disorder Hematology: Reports: Anemia Infectious Medical History: Reports: HIV - Patient reports no detectable viral count Past Surgical History Past Surgical History: Reports: Orthopedic Surgery - right knee replacement, rt third toe amputation, Other - Laser eye surgery, tooth extraction Social History Information Source: Patient Lives with: Other - Roommate Smoking Status: Current Every Day Smoker Cigarettes Packs Per Day: 0.2 Frequency of Alcohol Use: Social - Sixpack on Thursday night, sixpack on Thursday , does not drink during the week Hx Recreational Drug Use: Yes Drugs: Cocaine, Marijuana Family History Family History: CAD, CVA, DM, Hyperlipidemia, Hypertension Parental Family History Reviewed: Yes Children Family History Reviewed: Yes Sibling(s) Family History Reviewed.: Yes Medication/Allergy Home Medications: Albuterol Sulfate [Ventolin HFA MDI 18 GM] 1 - 2 puff IH Q4H PRN 08/20/16 Aripiprazole [Abilify 10 mg Tablet] 10 mg PO DAILY 08/20/16 Atenolol 100 mg PO DAILY 08/20/16 Cyclobenzaprine HCl 10 mg PO TID 08/20/16 Escitalopram Oxalate [Lexapro] 20 mg PO DAILY 08/20/16 Famotidine [Pepcid 20 mg Tablet] 20 mg PO BID 08/20/16 Fluticasone/Salmeterol [Advair 250-50 Diskus 14 Dose/Diskus] 1 inh IH DAILY 10/24 Hydralazine HCl 50 mg PO TID 08/20/16 Insulin Glargine,Hum.rec.anlog [Lantus] 50 unit SQ QHS 08/20/16 Linagliptin [Tradjenta] 5 mg PO DAILY 08/20/16 Prazosin HCl 2 mg PO QHS 08/20/16 Pregabalin [Lyrica] 150 mg PO TID 08/20/16 Simvastatin 20 mg PO QHS 08/20/16 Tramadol HCl 50 mg PO QHS PRN 08/20/16 Zolpidem Tartrate [Ambien] 10 mg PO QHS PRN 08/20/16 Alprazolam [Xanax] 2 mg PO BID PRN #60 tablet 08/25/16 Efavirenz/Emtricitab/Tenofovir [Atripla Tablet] 1 each PO QHS tablet 08/25/16 Acetaminophen [Tylenol 325 mg Tablet] 650 mg PO Q4HP PRN tablet 08/30/16 Amlodipine Besylate [Norvasc 5 mg Tablet] 5 mg PO DAILY #30 tablet 08/30/16 Apixaban [Eliquis 2.5 mg Tablet] 2.5 mg PO BID #60 tablet 08/30/16 Clindamycin HCl [Cleocin 150 mg Capsule] 300 mg PO Q8 capsule 08/30/16 Clonidine HCl [Catapres 0.1 mg Tablet] 0.1 mg PO Q12 tablet 08/30/16 Furosemide [Lasix 20 mg Tablet] 20 mg PO DAILY #30 tablet 08/30/16 Oxycodone HCl [Oxy-Ir 5 mg Tablet] 10 mg PO Q6HP PRN #30 tablet 08/30/16 Hydrocodone/Acetaminophen [[place] 5-325 mg Tablet] 1 tab PO Q6HP PRN #6 tablet Hydrocodone/Acetaminophen [[place] 5-325 mg Tablet] 1 tab PO Q4 PRN #12 tablet 12/26 Doxycycline Hyclate 100 mg PO BID #20 tablet. 12/27/16 Terbinafine HCl [Lamisil 250 mg Tablet] 250 mg PO DAILY #30 tablet 12/27/16 Cephalexin Monohydrate [Keflex 500 mg Capsule] 500 mg PO QID #40 capsule Allergies/Adverse Reactions: Penicillins Allergy (Verified 12/31/16 15:24) rash Review of Systems All systems: reviewed and no additional remarkable complaints except as stated Physical Exam Vital Signs: Temp Pulse Resp BP Pulse Ox 98.1 F 81 14 126/77 H 97 01/01/17 01:00 01/01/17 01:00 01/01/17 01:00 01/01/17 01:00 01/01/17 01:00 Intake & Output 12/30/16 12/31/16 01/01/17 06:59 06:59 06:59 Weight 115.212 kg General appearance: PRESENT: no acute distress, obese Head exam: PRESENT: normocephalic Eye exam: PRESENT: EOMI Mouth exam: PRESENT: tongue midline Neck exam: ABSENT: JVD, lymphadenopathy, tenderness, thyromegaly Respiratory exam: PRESENT: clear to auscultation vanessa Cardiovascular exam: PRESENT: RRR GI/Abdominal exam: PRESENT: soft. ABSENT: distended, tenderness Extremities exam: PRESENT: tenderness - Left second and third toes tender to palpation, +1 edema - Left lower extremity edema up to tibial plateau, other - Right foot status post third toe amputation, well-healed. Left foot with necrotic third toe, pus is draining from open sores on multiple aspects. Bone is visible and palpable through the open sore on the medial aspect of the third toe. The second toe is edematous, erythematous, tender and sores as well, but not as deep or extensive as the third toe. Erythema, edema and tenderness extending to the tibial plateau. Musculoskeletal exam: PRESENT: tenderness Neurological exam: PRESENT: alert, oriented to person, oriented to place, oriented to time, oriented to situation Psychiatric exam: PRESENT: appropriate affect, normal mood Skin exam: PRESENT: erythema. ABSENT: jaundice Results Laboratory Results: 12/31/16 15:40 12/31/16 15:40 12/31/16 12/31/16 15:40 15:40 WBC 10.5 RBC 3.77 L Hgb 10.6 L Hct 32.2 L MCV 85 MCH 28.1 MCHC 33.0 RDW 14.0 Plt Count 283 Seg Neutrophils % 73.6 Lymphocytes % 11.2 L Monocytes % 12.5 Eosinophils % 2.2 Basophils % 0.5 Absolute Neutrophils 7.8 Absolute Lymphocytes 1.2 Absolute Monocytes 1.3 Absolute Eosinophils 0.2 Absolute Basophils 0.1 Sodium 135.2 L Potassium 5.3 H Chloride 98 Carbon Dioxide 27 Anion Gap 10 BUN 29 H Creatinine 2.01 H Est GFR ( Amer) 43 L Est GFR (Non-Af Amer) 36 L Glucose 254 H Calcium 8.9 Total Bilirubin 0.3 AST 32 ALT 42 Alkaline Phosphatase 136 H Total Protein 7.4 Albumin 3.4 L Impressions: Foot X-Ray 12/31/16 19:26 IMPRESSION: Diffuse soft tissue swelling with soft tissue gas present in the 3rd digit and 3rd-4th digit interspace. No radiopaque foreign body. No fracture. Status: Image reviewed by me Assessment & Plan - Diagnosis (1) Skin ulcer of third toe of right foot with necrosis of bone Is this a current diagnosis for this admission?: Yes (2) Bipolar disorder Is this a current diagnosis for this admission?: Yes (3) Cellulitis of right lower extremity Is this a current diagnosis for this admission?: Yes (4) Cellulitis of second toe, left Is this a current diagnosis for this admission?: Yes (5) Cellulitis of third toe, left Is this a current diagnosis for this admission?: Yes (6) Cocaine abuse Is this a current diagnosis for this admission?: Yes (7) Coronary artery disease Is this a current diagnosis for this admission?: Yes (8) Diabetes Qualifiers: Diabetes mellitus type: type 2 Diabetes mellitus complication detail: with peripheral angiopathy with gangrene 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: unspecified senior living insulin use status Is this a current diagnosis for this admission?: Yes (9) Diabetic foot infection Is this a current diagnosis for this admission?: Yes (10) History of pulmonary embolism Is this a current diagnosis for this admission?: Yes (11) Hyperkalemia Is this a current diagnosis for this admission?: Yes (12) Hypertension Qualifiers: Hypertension type: essential hypertension Qualified Code(s): I10 - Essential (primary) hypertension Is this a current diagnosis for this admission?: Yes (13) Normocytic anemia Is this a current diagnosis for this admission?: Yes (14) Osteomyelitis of toe Is this a current diagnosis for this admission?: YesPlan: Multiple comorbidities. HIV positive. Status post amputation of his right third toe. Now has a necrotic left third toe. Second toe appears compromised as well. Cellulitis extending up the leg. A culture was taken of the third toe. Sent for culture/microbiology. Recommend antibiotics. Recommend at least third toe amp probably second toe amp as well. May result in a TMA or worse. Make nothing by mouth for surgery in the morning. Started IV fluids at 125 mL on hour until internal medicine gets chance to do a full admission. (15) Poorly controlled diabetes mellitus Is this a current diagnosis for this admission?: Yes (16) Tobacco abuse Is this a current diagnosis for this admission?: Yes
[2017-01-01] MEDS: NORMAL SALINE 1000 ML 1,000 ML IV PRN ×2 (03:51→19:54)
[2017-01-01] MEDS ORDERED: IPRATROPIUM/ALBUTEROL 0.5-2.5 MG/3 ML AMPUL NEB PRN (05:17)
[2017-01-01] MEDS ORDERED: GLUCAGON,HUMAN RECOMB 1 MG INJ IM PRN (05:21)
[2017-01-01] MEDS ORDERED: DEXTROSE 40% GEL 15 GM TUBE PO PRN ×2 (05:21)
[2017-01-01] MEDS ORDERED: DEXTROSE 50%-WATER 25 GM/50 ML DISP.SYRIN IV PRN ×2 (05:21)
[2017-01-01] MEDS ORDERED: VANCOMYCIN HCL 0 MG in DEXTROSE 5%-WATER 250 ML IV NR (05:30)
[2017-01-01] MEDS ORDERED: PHARMACY COMMUNICATION ORDER MC SCH (05:30)
--- NOTE | 2017-01-01 05:33 | PDOC H&P ---
History of Present Illness Admission Date/PCP: [facility] first urgent care Patient complains of: Left foot infection History of Present Illness: 46-year-old -[place] male with multiple chronic comorbidities, including HIV disease, history of pulmonary embolus, on Eliquis for same, bipolar disorder, posttraumatic stress disorder, marijuana and cocaine use, along with COPD, hyperlipidemia, type I diabetes mellitus who presents to the emergency room for evaluation of a several day history of slowly progressive left foot pain, redness, and swelling. Was seen in the emergency room on the for complaints of left foot pain and was given a prescription for oral antibiotics which he did not fill. Also given a follow-up appointment with vascular surgeon, which he obviously has not been able to arrange yet. He's had subjective fever and chills,, along with occasional nausea and vomiting. 2 day history of mild dysuria and occasional diarrhea. No chest or abdominal pain. Patient has been discussed with emergency room physician who evaluated the patient. Prior to my seeing the patient, he was seen by the operating room surgical technician Dr. Colunga , who will notify the on coming surgeon later this morning concerning this gentleman for likely needed surgery on the left foot. . Laboratory results are listed in Tred and are reviewed. X-ray summary results are listed below, with full report(s) reviewed. . EKG reviewed. Social history/personal habits: Single. One son. On disability due to multiple health problems. One pack of cigarettes per week. 3 beers a day. Marijuana and cocaine use. Allergies/adverse reactions are listed in Tred and are reviewed. According to medication list, is able to tolerate Keflex. Home medications are reviewed by discussion with patient and review of a typed list from his primary care provider and are to be reconciled by nursing staff in [facility]. Home medications initially autopopulated into [employer] may not accurately reflect patient's true medications, dosages, and/or frequencies. Unfortunately, patient knows virtually none of the dosages of the medication that he says he takes. Also, patient states he no longer takes some of the medications listed on his primary care provider's list. Order has been written to confirm which medications he does indeed take. REVIEW OF SYSTEMS: Constitutional: See history and present illness. Eyes: No current vision complaints. ENT: No swallowing problems or complaints. No hearing problems or complaints. Pulmonary: No current complaints. Cardiovascular: No current complaints, including chest pain. Gastrointestinal: See history and present illness. Skin: No current complaints, including rashes. Hematologic: No unusual easy bruising or bleeding. Neurologic: No current complaints, including numbness or tingling. Musculoskeletal: Joint pain from arthritis. See history and present illness. Psychiatric: Mild depression; denies suicidal or homicidal ideation. Endocrine: No current complaints, including polyuria. Genitourinary: No current complaints, including dysuria. PHYSICAL EXAMINATION: Blood pressure 141/91. Pulse 86 and regular. 99% saturation on room air. Respirations are 16 and unlabored. Temperature 98.1. 5 feet 9H is tall. 115.2 kg. BMI 37.5 kg/m. Obese chronically ill-appearing -[place] male who appears a bit older than his stated age. Awake alert pleasant and cooperative. Appears somewhat fatigued, and to feel a bit under the weather, so to speak. Skin is warm and dry. No grossly obvious evidence of rash in areas of skin examined. No subcutaneous nodules palpated. ENT: Hearing grossly normal to normal conversation. Tongue midline on protrusion pink and slightly moist. Eyes: No scleral icterus. Pupils equal and reactive to light at 4 mm. [place] conjunctivae. Neck is supple and nontender to gentle active range of motion and palpation. Midline trachea. No palpable thyroid nodule mass enlargement or tenderness. Lymphatic: No palpable cervical or clavicular nodes. Neck and lymphatic exams limited by patient body habitus. Psychiatric: Minimal insight into acute and chronic medical issues. Oriented to time location and why here. Lungs: Auscultation reveals clear and equal breath sounds bilaterally. No use of accessory respiratory muscles. Cardiovascular: Heart regular rate and rhythm, without gallop murmur or rub. No carotid or abdominal aortic bruits. No right ankle or pedal edema; mild slightly pitting left ankle and dorsal pedal edema, without crepitus. Faintly palpable dorsalis pedis pulses. Abdomen: soft, obese, nontender with positive bowel sounds. Unable to adequately evaluate abdomen for masses or organomegaly due to body habitus. Extremities: Feet are warm and dry. No calf tenderness to compression. No grossly obvious visual evidence of calf swelling. Gentle manipulation of lower extremities fails to reveal any obvious evidence of injury or instability to knees hips or ankles. Please refer to physical examination of left foot by both emergency room physician and consulting general surgeon, who has seen patient. Neurologic: Moves upper extremities grossly normally. Patellar reflexes absent. Absent Babinski. Light touch is intact at feet. Dorsiflexion and plantarflexion of feet 5 / 5 and symmetric. Past Medical History Cardiac Medical History: Reports: Coronary Artery Disease, Myocardial Infarction , Hyperlipidema, Hypertension, Peripheral Vascular Disease, Pulmonary Embolism Pulmonary Medical History: Reports: Chronic Obstructive Pulmonary Disease (COPD) , Pneumonia - 1 year ago EENT Medical History: Reports: Other - Left eye blindness, poor vision in right eye Neurological Medical History: Reports: Seizures - 4 years ago; Depakote stopped by his physician. Endocrine Medical History: Reports: Diabetes Mellitus Type 1, Diabetes Mellitus Type 2 - IDDM, Obesity Renal/ Medical History: Reports: Chronic Kidney Disease - Stage III Malignancy Medical History: GI Medical History: Reports: Hepatitis Musculoskeltal Medical History: Reports: Arthritis, Other - Chronic back pain Psychiatric Medical History: Reports: Bipolar Disorder, Depression, Post Traumatic Stress Disorder Hematology: Reports: Anemia, Other - Left eye blindness, poor vision in right eye Infectious Medical History: Reports: HIV - Patient reports no detectable viral count Past Surgical History Past Surgical History: Reports: Orthopedic Surgery - right knee replacement, rt third toe amputation, Other - Laser eye surgery, tooth extraction Social History Information Source: Patient, Emergency Med Personnel, [facility] Records Lives with: Other - Roommate Smoking Status: Current Every Day Smoker Cigarettes Packs Per Day: 0.2 Frequency of Alcohol Use: Heavy - 3 beers a day. Hx Recreational Drug Use: Yes Drugs: Cocaine, Marijuana Hx Prescription Drug Abuse: No - Advance Directive Resuscitation Status: Full Code Surrogate healthcare decision maker:: No one at the present time. Family History Family History: CAD, CVA, DM, Hyperlipidemia, Hypertension Parental Family History Reviewed: Yes Children Family History Reviewed: Yes Sibling(s) Family History Reviewed.: Yes Medication/Allergy Home Medications: Alprazolam [Xanax] 2 mg PO BID 01/01/17 Amitriptyline HCl [Elavil 25 mg Tablet] 25 mg PO DAILY 01/01/17 Aripiprazole [Abilify 15 mg Tablet] 15 mg PO DAILY 01/01/17 Fluoxetine HCl [Prozac] 40 mg PO QAM 01/01/17 Gabapentin [Neurontin 400 mg Capsule] 400 mg PO QID 01/01/17 Insulin Glargine,Hum.rec.anlog [Lantus Insulin 100 Unit/1 ml 10 ml] 45 units SQ QHS 01/01/17 Lisinopril [Prinivil 5 mg Tablet] 5 mg PO QHS 01/01/17 Simvastatin [Zocor 20 mg Tablet] 20 mg PO QHS 01/01/17 Zolpidem Tartrate [Ambien] 15 mg PO HSP PRN 01/01/17 Atenolol [Tenormin 50 mg Tablet] 100 mg PO DAILY #30 tablet 01/08/17 Clonidine HCl [Catapres 0.1 mg Tablet] 0.1 mg PO Q12 #60 tablet 01/08/17 Hydralazine HCl [Apresoline 50 mg Tablet] 50 mg PO Q8 #90 tablet 01/08/17 Linezolid [Zyvox RTU 600 mg/300 ml Premixed] 600 mg IV Q12 #90 rtupb 01/08/17 Oxycodone HCl/Acetaminophen [Percocet 5-325 mg Tablet] 2 tab PO Q6HP PRN #30 tablet 01/08/17 Allergies/Adverse Reactions: Penicillins Allergy (Verified 12/31/16 15:24) rash Physical Exam Vital Signs: Temp Pulse Resp BP Pulse Ox 97.8 F 81 16 141/91 H 98 01/01/17 05:00 01/01/17 01:00 01/01/17 04:30 01/01/17 04:30 01/01/17 04:30 Intake & Output 12/31/16 01/01/17 01/02/17 00:59 00:59 00:59 Weight 115.212 kg Results Laboratory Results: 12/31/16 15:40 12/31/16 15:40 12/31/16 12/31/16 15:40 15:40 WBC 10.5 RBC 3.77 L Hgb 10.6 L Hct 32.2 L MCV 85 MCH 28.1 MCHC 33.0 RDW 14.0 Plt Count 283 Seg Neutrophils % 73.6 Lymphocytes % 11.2 L Monocytes % 12.5 Eosinophils % 2.2 Basophils % 0.5 Absolute Neutrophils 7.8 Absolute Lymphocytes 1.2 Absolute Monocytes 1.3 Absolute Eosinophils 0.2 Absolute Basophils 0.1 Sodium 135.2 L Potassium 5.3 H Chloride 98 Carbon Dioxide 27 Anion Gap 10 BUN 29 H Creatinine 2.01 H Est GFR ( Amer) 43 L Est GFR (Non-Af Amer) 36 L Glucose 254 H Calcium 8.9 Total Bilirubin 0.3 AST 32 ALT 42 Alkaline Phosphatase 136 H Total Protein 7.4 Albumin 3.4 L Impressions: Foot X-Ray 12/31/16 19:26 IMPRESSION: Diffuse soft tissue swelling with soft tissue gas present in the 3rd digit and 3rd-4th digit interspace. No radiopaque foreign body. No fracture. Assessment & Plan - Diagnosis (1) PTSD (post-traumatic stress disorder) Is this a current diagnosis for this admission?: YesPlan: Resume home medications as appropriate once these have been determined and reviewed. (2) Anticoagulated Is this a current diagnosis for this admission?: YesPlan: Will hold Eliquis for the present time, with planned surgery. (3) HIV (human immunodeficiency virus infection) Is this a current diagnosis for this admission?: YesPlan: Resume home medications as appropriate once these have been determined and reviewed. (4) CKD (chronic kidney disease), stage III Is this a current diagnosis for this admission?: YesPlan: Follow-up chemistry. (5) Diabetic infection of left foot Is this a current diagnosis for this admission?: YesPlan: Surgery consult. Antibiotics to consist of aztreonam, along with intravenous metronidazole. I have strongly encouraged patient not to get out of bed without notifying staff , to avoid a fall with injury. Knee high SCD, right lower extremity only for DVT prophylaxis; with patient anticoagulated, will forego Lovenox or heparin at this point in time. Impression and plans were discussed with patient, who concurs. Time spent in evaluation and management of patient: 65 minutes. (6) Hyperkalemia Is this a current diagnosis for this admission?: YesPlan: Follow-up chemistry. (7) Cocaine abuse Is this a current diagnosis for this admission?: Yes - Inpatient Certification Based on my medical assessment, after consideration of the patient's comorbidities, presenting symptoms, or acuity I expect that the services needed warrant INPATIENT care.: Yes I certify that my determination is in accordance with my understanding of Medicare's requirements for reasonable and necessary INPATIENT services [42 CFR 412.3e].: Yes Medical Necessity: Significant Comorbidiites Make Outpatient Treatment Too Risky , Need for IV Antibiotics, Need for Surgery, Risk of Complication if Not Cared For in Hospital, Risk of Diagnosis Which Will Require Inpatient Eval/Care/ Monitoring Post Hospital Care: D/C or Transfer Summary
[2017-01-01] MEDS ORDERED: VANCOMYCIN HCL 1,750 MG in DEXTROSE 5%-WATER 500 ML IV ONE (06:00)
[2017-01-01] MEDS ORDERED: AZTREONAM INJ 1 GM VIAL IV SCH (06:00)
[2017-01-01 06:19] LABS: ANION GAP 8 (5-19); BLOOD UREA NITROGEN 22 mg/dL (7-20); CALCIUM 8.8 mg/dL (8.4-10.2); CARBON DIOXIDE 29 mmol/L (22-30); CHLORIDE 101 mmol/L (98-107); CREATININE RESULT 1.42 mg/dL (0.52-1.25); GLUCOSE 78 mg/dL (75-110); POTASSIUM 4.9 mmol/L (3.6-5.0); SODIUM 138.4 mmol/L (137-145)
[2017-01-01] MEDS: METRONIDAZOLE 500 MG/NS RTU 100 ML IV SCH ×3 (06:54→21:46)
[2017-01-01 07:43] LABS: PARTIAL THROMBOPLASTIN TIME 40.8 SEC (23.5-35.8); PROTHROMBIN TIME 12.4 SEC (11.4-15.4)
[2017-01-01] MEDS ORDERED: HYDRALAZINE HCL INJ/PF 20 MG/1 ML SDV IV PRN (08:12)
--- NOTE | 2017-01-01 08:20 | EKG REPORT ---
SEVERITY:- NORMAL ECG - SINUS RHYTHM : Confirmed by: Savannah Dodson MD 01-Jan-2017 08:19:39
[2017-01-01] MEDS: MORPHINE SULFATE 10 MG/ML INJ IV PRN ×3 (09:27→21:54)
[2017-01-01] MEDS ORDERED: LIDOCAINE 2% INJ-PF (20 MG/ML) 10 ML AMPUL ONE ×2 (09:32→13:44)
[2017-01-01] MEDS ORDERED: ONDANSETRON HCL INJ/PF 4 MG/2 ML SDV ONE ×2 (09:32→13:44)
[2017-01-01] MEDS ORDERED: LIDOCAINE 1% INJ-PF (10 MG/ML) 30 ML SDV ONE (09:46)
[2017-01-01] MEDS: VANCOMYCIN HCL 1,250 MG in DEXTROSE 5%-WATER 250 ML IV SCH ×2 (10:34→22:53)
[2017-01-01] MEDS ORDERED: FENTANYL CITRATE INJ/PF 100 MCG/2 ML AMPUL ONE (11:28)
[2017-01-01] MEDS ORDERED: PROPOFOL INJ 200 MG/20 ML VIAL IV ONE (11:29)
[2017-01-01] MEDS ORDERED: MIDAZOLAM 2 MG/2 ML INJ ONE (11:29)
[2017-01-01] MEDS ORDERED: AZTREONAM IV SCH (14:00)
[2017-01-01] MEDS ORDERED: NORMAL SALINE IV SCH (14:00)
[2017-01-01] MEDS ORDERED: MORPHINE SULFATE 10 MG/ML INJ IV PRN (14:03)
[2017-01-01] MEDS ORDERED: DIPHENHYDRAMINE HCL 50 MG/ML VIAL IV PRN (14:03)
[2017-01-01] MEDS ORDERED: MEPERIDINE HCL/PF INJ 25 MG/1 ML DISP.SYRIN IV PRN (14:03)
[2017-01-01] MEDS ORDERED: PROMETHAZINE HCL INJ 25 MG/1 ML VIAL IV PRN ×2 (14:03)
[2017-01-01] MEDS ORDERED: FENTANYL CITRATE INJ/PF 100 MCG/2 ML AMPUL IV PRN ×3 (14:03)
--- NOTE | 2017-01-01 14:44 | Operative Report ---
Operative Report DATE OF SURGERY: 01/01/17 PREOPERATIVE DIAGNOSIS: Septic left foot with nonviable toes 2 and 3 POSTOPERATIVE DIAGNOSIS: Same OPERATION: 1. Open amputation of toes 2 and 3 including metatarsal heads respectively. 2. Placement counterincision some of left foot, with large Cornelio drain placed SURGEON: ANTONIO JOHNSON ANESTHESIA: LMAC TISSUE REMOVED OR ALTERED: Toes and pus COMPLICATIONS: None ESTIMATED BLOOD LOSS: 50 mL INTRAOPERATIVE FINDINGS: See below PROCEDURE: Patient was in the preoperative holding area and then taking the operating room where LMAC anesthesia was induced. Left foot was isolated, prepped and draped sterile fashion surgical plan and surgical timeout were conducted. She underwent satisfactory anesthesia such that local was not required. Toes 2 and 3 on the left were amputated at the respectively. Phalanx and metatarsal heads debrided away with was. There is a significant amount of pus emanating from the open wound, and tracking along the dorsal surface of the left foot. Counterincision was made on the top of the left foot. Pus pockets were broken up and a large Grant drain was placed and secured with a knife. Digital arteries were cauterized as encountered. There was excellent vasculature to the foot distally. Irrigated with saline multiple times, and both dictation side cavity was packed with iodoform packing. Dry 4 x 4's, Kerlix dressing applied. Postoperative procedure well taken recovery in stable condition.
[2017-01-01] MEDS: FENTANYL CITRATE INJ/PF 100 MCG/2 ML AMPUL ONE ×2 (14:51→14:56)
[2017-01-01] MEDS ORDERED: MORPHINE SULFATE 10 MG/ML INJ ONE (15:15)
[2017-01-01] MEDS: AZTREONAM 2 GM in DEXTROSE 5%-WATER 100 ML IV SCH ×2 (18:59→19:04)
[2017-01-01] MEDS: ATENOLOL 50 MG TABLET PO SCH (18:59)
[2017-01-01] MEDS: CLONIDINE HCL 0.1 MG TABLET PO SCH ×2 (18:59→21:46)
[2017-01-01] MEDS: HYDRALAZINE HCL 50 MG TABLET PO SCH ×2 (18:59→21:46)
[2017-01-01] MEDS ORDERED: INFLUENZA ADLT QUAD (36MOS+) 2016-17 VAC 0.5 ML SYR IM PRN (19:55)
[2017-01-01] MEDS: INSULIN LISPRO 100 UNIT/ML 3 ML VIAL SUBCUT PRN (21:53)
[2017-01-02] MEDS: AZTREONAM 2 GM in DEXTROSE 5%-WATER 100 ML IV SCH ×3 (01:25→17:44)
[2017-01-02] MEDS: MORPHINE SULFATE 10 MG/ML INJ IV PRN ×5 (02:22→21:11)
[2017-01-02] MEDS: HYDRALAZINE HCL 50 MG TABLET PO SCH ×3 (05:09→21:11)
[2017-01-02] MEDS: METRONIDAZOLE 500 MG/NS RTU 100 ML IV SCH ×3 (05:09→21:11)
[2017-01-02] MEDS: ATENOLOL 50 MG TABLET PO SCH (09:05)
[2017-01-02] MEDS: INSULIN LISPRO 100 UNIT/ML 3 ML VIAL SUBCUT PRN ×3 (09:05→21:11)
[2017-01-02] MEDS: CLONIDINE HCL 0.1 MG TABLET PO SCH ×2 (09:06→21:11)
[2017-01-02 10:37] LABS: CREATININE RESULT 1.38 mg/dL (0.52-1.25)
--- NOTE | 2017-01-02 11:02 | PDOC PROGRESS REPORT ---
Subjective Progress Note for:: 01/02/17 Subjective:: Patient tolerated procedure well. Amputation of the second and third toe were done on the left foot. Patient denies any chills or fever. No nausea or vomiting or chest pain. No shortness of breath, PND or orthopnea. Physical Exam Vital Signs: Temp Pulse Resp BP Pulse Ox 98.2 F 81 20 120/84 97 01/02/17 08:19 01/02/17 08:19 01/02/17 08:19 01/02/17 08:19 01/02/17 08:19 Intake & Output 01/01/17 01/02/17 01/03/17 06:59 06:59 06:59 Intake Total 2445 Output Total 1000 Balance 1445 Weight 127 kg General appearance: PRESENT: no acute distress, cooperative Head exam: PRESENT: normocephalic Eye exam: PRESENT: EOMI Mouth exam: PRESENT: moist, neck supple Neck exam: ABSENT: JVD Respiratory exam: PRESENT: clear to auscultation vanessa. ABSENT: rhonchi, wheezes Cardiovascular exam: PRESENT: RRR. ABSENT: gallop GI/Abdominal exam: PRESENT: soft. ABSENT: distended, tenderness Extremities exam: PRESENT: pedal edema Neurological exam: PRESENT: alert, awake, oriented to situation Skin exam: PRESENT: dry, warm. ABSENT: cyanosis Results Laboratory Results: 01/02/17 09:39 01/02/17 09:39 Creatinine 1.38 H Est GFR ( Amer) > 60 Est GFR (Non-Af Amer) 55 L Impressions: Foot X-Ray 12/31/16 19:26 IMPRESSION: Diffuse soft tissue swelling with soft tissue gas present in the 3rd digit and 3rd-4th digit interspace. No radiopaque foreign body. No fracture. Assessment & Plan - Diagnosis (1) Diabetic infection of left foot Is this a current diagnosis for this admission?: Yes (2) Acute renal failure Qualifiers: Acute renal failure type: unspecified Qualified Code(s): N17.9 - Acute kidney failure, unspecified Is this a current diagnosis for this admission?: Yes (3) Coronary artery disease Qualifiers: Coronary Disease-Associated Artery/Lesion type: [place] artery [place] vs. transplanted heart: [place] heart Associated angina: without angina Qualified Code(s): I25.10 - Atherosclerotic heart disease of [place] coronary artery without angina pectoris Is this a current diagnosis for this admission?: Yes (4) Diabetes Qualifiers: Diabetes mellitus type: type 2 Diabetes mellitus complication detail: with peripheral angiopathy with gangrene Diabetes mellitus alf insulin use: unspecified superintendent container terminal insulin use status Is this a current diagnosis for this admission?: Yes (5) Hypertension Qualifiers: Hypertension type: essential hypertension Qualified Code(s): I10 - Essential (primary) hypertension Is this a current diagnosis for this admission?: Yes (6) Osteomyelitis of toe Is this a current diagnosis for this admission?: Yes (7) Bipolar disorder Qualifiers: Active/Remission status: remission status unspecified Qualified Code (s): F31.9 - Bipolar disorder, unspecified Is this a current diagnosis for this admission?: Yes (8) CKD (chronic kidney disease), stage III Is this a current diagnosis for this admission?: Yes (9) HIV (human immunodeficiency virus infection) Is this a current diagnosis for this admission?: Yes (10) History of pulmonary embolism Is this a current diagnosis for this admission?: Yes (11) PTSD (post-traumatic stress disorder) Is this a current diagnosis for this admission?: Yes (12) Peripheral vascular disease Is this a current diagnosis for this admission?: Yes - Time Time Spent with patient: 25-34 minutes - Plan Summary Plan Summary: Consult interventional radiology for PICC line placement. Continue current antibiotics for now. Follow blood sugars. Monitor creatinine.
[2017-01-02] MEDS: VANCOMYCIN HCL 1,250 MG in DEXTROSE 5%-WATER 250 ML IV SCH ×2 (11:06→22:05)
[2017-01-03] MEDS: AZTREONAM 2 GM in DEXTROSE 5%-WATER 100 ML IV SCH ×3 (01:24→17:01)
[2017-01-03] MEDS: MORPHINE SULFATE 10 MG/ML INJ IV PRN ×4 (03:25→16:58)
[2017-01-03] MEDS: NORMAL SALINE 1000 ML 1,000 ML IV PRN (03:26)
[2017-01-03] MEDS: HYDRALAZINE HCL 50 MG TABLET PO SCH ×3 (05:06→21:13)
[2017-01-03] MEDS: METRONIDAZOLE 500 MG/NS RTU 100 ML IV SCH (05:06)
[2017-01-03 06:20] LABS: ANION GAP 8 (5-19); BLOOD UREA NITROGEN 19 mg/dL (7-20); CALCIUM 8.4 mg/dL (8.4-10.2); CARBON DIOXIDE 24 mmol/L (22-30); CHLORIDE 100 mmol/L (98-107); CREATININE RESULT 1.23 mg/dL (0.52-1.25); GLUCOSE 234 mg/dL (75-110); POTASSIUM 5.3 mmol/L (3.6-5.0); SODIUM 132.2 mmol/L (137-145)
[2017-01-03] MEDS: CLONIDINE HCL 0.1 MG TABLET PO SCH ×2 (09:59→21:14)
[2017-01-03] MEDS: ATENOLOL 50 MG TABLET PO SCH (09:59)
[2017-01-03] MEDS: INSULIN LISPRO 100 UNIT/ML 3 ML VIAL SUBCUT PRN ×4 (10:00→21:14)
[2017-01-03] MEDS: NORMAL SALINE 10 ML SDV (SCHEDULED) IV SCH ×2 (10:00→21:14)
--- NOTE | 2017-01-03 11:48 | PDOC PROGRESS REPORT ---
[id number] on the left foot. Patient denies any chills or fever. No nausea or vomiting or chest pain. No shortness of breath, PND or orthopnea. No diarrhea, nausea or vomiting, abdominal pain. Pain post-op not controlled however. Physical Exam Vital Signs: Temp Pulse Resp BP Pulse Ox 97.9 F 75 20 137/82 H 98 01/03/17 09:00 01/03/17 09:00 01/03/17 09:00 01/03/17 09:00 01/03/17 09:00 Intake & Output 01/02/17 01/03/17 01/04/17 06:59 06:59 06:59 Intake Total 2445 3650 Output Total 1000 2020 Balance 1445 1630 Weight 127 kg 127 kg General appearance: PRESENT: no acute distress, cooperative, obese Head exam: PRESENT: normocephalic Eye exam: PRESENT: EOMI Mouth exam: PRESENT: moist, neck supple Neck exam: ABSENT: JVD Respiratory exam: PRESENT: clear to auscultation vanessa. ABSENT: rhonchi, wheezes Cardiovascular exam: PRESENT: RRR. ABSENT: gallop GI/Abdominal exam: PRESENT: soft. ABSENT: distended, tenderness Extremities exam: PRESENT: pedal edema Neurological exam: PRESENT: alert, awake, oriented to situation Skin exam: PRESENT: dry, warm. ABSENT: cyanosis Results Laboratory Results: 01/03/17 06:00 01/03/17 06:00 Sodium 132.2 L Potassium 5.3 H Chloride 100 Carbon Dioxide 24 Anion Gap 8 BUN 19 Creatinine 1.23 Est GFR ( Amer) > 60 Est GFR (Non-Af Amer) > 60 Glucose 234 H Calcium 8.4 Impressions: Foot X-Ray 12/31/16 19:26 IMPRESSION: Diffuse soft tissue swelling with soft tissue gas present in the 3rd digit and 3rd-4th digit interspace. No radiopaque foreign body. No fracture. Guidance Fluoroscopy 01/02/17 00:00 IMPRESSION: SUCCESSFUL PLACEMENT OF A 5 FR DUAL LUMEN 41 CM PICC IN THE left basilic VEIN. Interventional Vascular Procedure 01/02/17 00:00 IMPRESSION: SUCCESSFUL PLACEMENT OF A 5 FR DUAL LUMEN 41 CM PICC IN THE left basilic VEIN. PICC Line Insertion 01/02/17 00:00 IMPRESSION: SUCCESSFUL PLACEMENT OF A 5 FR DUAL LUMEN 41 CM PICC IN THE left basilic VEIN. Assessment & Plan - Diagnosis (1) Diabetic infection of left foot Is this a current diagnosis for this admission?: Yes (2) Acute renal failure Qualifiers: Acute renal failure type: unspecified Qualified Code(s): N17.9 - Acute kidney failure, unspecified Is this a current diagnosis for this admission?: Yes (3) Coronary artery disease Qualifiers: Coronary Disease-Associated Artery/Lesion type: [place] artery [place] vs. transplanted heart: [place] heart Associated angina: without angina Qualified Code(s): I25.10 - Atherosclerotic heart disease of [place] coronary artery without angina pectoris Is this a current diagnosis for this admission?: Yes (4) Diabetes Qualifiers: Diabetes mellitus type: type 2 Diabetes mellitus complication detail: with peripheral angiopathy with gangrene Diabetes mellitus long term care phlebotomist insulin use: unspecified long term care phlebotomist insulin use status Is this a current diagnosis for this admission?: Yes (5) Hypertension Qualifiers: Hypertension type: essential hypertension Qualified Code(s): I10 - Essential (primary) hypertension Is this a current diagnosis for this admission?: Yes (6) Osteomyelitis of toe Is this a current diagnosis for this admission?: Yes (7) Bipolar disorder Qualifiers: Active/Remission status: remission status unspecified Qualified Code (s): F31.9 - Bipolar disorder, unspecified Is this a current diagnosis for this admission?: Yes (8) CKD (chronic kidney disease), stage III Is this a current diagnosis for this admission?: Yes (9) HIV (human immunodeficiency virus infection) Is this a current diagnosis for this admission?: Yes (10) History of pulmonary embolism Is this a current diagnosis for this admission?: Yes (11) PTSD (post-traumatic stress disorder) Is this a current diagnosis for this admission?: Yes (12) Peripheral vascular disease Is this a current diagnosis for this admission?: Yes - Time Time Spent with patient: 25-34 minutes - Plan Summary Plan Summary: PICC line placement. We will arrange for home IV antibiotics once identity of the culture established. Currently on Azactam and vancomycin. Culture growing gram-negative rods, and gram-positive cocci. We will discontinue Flagyl. We will decrease intravenous fluids. We will give Kayexalate for hyperkalemia and recheck it in the morning. Increase pain medication dose. Continue supportive care.
[2017-01-03] MEDS: VANCOMYCIN HCL 1,250 MG in DEXTROSE 5%-WATER 250 ML IV SCH ×2 (12:20→21:12)
[2017-01-03] MEDS ORDERED: SODIUM POLYSTYRENE SULFONATE 15 GM/60 ML PO ONE (12:30)
[2017-01-03] MEDS: OXYCODONE-ACETAMINOPHEN 5-325 MG TABLET PO PRN ×2 (13:40→21:13)
[2017-01-03] MEDS ORDERED: INSULIN LISPRO 100 UNIT/ML 3 ML VIAL SUBCUT PRN (21:18)
[2017-01-04] MEDS: AZTREONAM 2 GM in DEXTROSE 5%-WATER 100 ML IV SCH ×3 (01:00→18:06)
[2017-01-04] MEDS: MORPHINE SULFATE 10 MG/ML INJ IV PRN ×5 (01:00→22:51)
[2017-01-04] MEDS: OXYCODONE-ACETAMINOPHEN 5-325 MG TABLET PO PRN ×3 (05:32→21:31)
[2017-01-04] MEDS: HYDRALAZINE HCL 50 MG TABLET PO SCH ×3 (05:32→21:32)
[2017-01-04 06:19] LABS: ANION GAP 8 (5-19); BLOOD UREA NITROGEN 17 mg/dL (7-20); CARBON DIOXIDE 29 mmol/L (22-30); CHLORIDE 98 mmol/L (98-107); CREATININE RESULT 1.22 mg/dL (0.52-1.25); GLUCOSE 240 mg/dL (75-110); POTASSIUM 5.3 mmol/L (3.6-5.0); SODIUM 134.5 mmol/L (137-145)
[2017-01-04] MEDS: NORMAL SALINE 10 ML SDV (SCHEDULED) IV SCH ×2 (09:14→21:32)
[2017-01-04] MEDS: CLONIDINE HCL 0.1 MG TABLET PO SCH ×2 (09:15→21:32)
[2017-01-04] MEDS: ATENOLOL 50 MG TABLET PO SCH (09:16)
[2017-01-04] MEDS: VANCOMYCIN HCL 1,250 MG in DEXTROSE 5%-WATER 250 ML IV SCH ×2 (09:16→21:31)
[2017-01-04] MEDS: INSULIN LISPRO 100 UNIT/ML 3 ML VIAL SUBCUT PRN ×3 (12:58→21:53)
[2017-01-04] MEDS: NORMAL SALINE 1000 ML 1,000 ML IV PRN (13:29)
--- NOTE | 2017-01-04 14:26 | PDOC PROGRESS REPORT ---
Subjective Progress Note for:: 01/04/17 Subjective:: Had a good bowel movement today. There is no diarrhea. No chills or fever. No chest pain or shortness of breath. Pain is better. No pus reported draining from the wound. Physical Exam Vital Signs: Temp Pulse Resp BP Pulse Ox 97.8 F 74 20 128/81 H 99 01/04/17 11:28 01/04/17 11:28 01/04/17 11:28 01/04/17 11:28 01/04/17 11:28 Intake & Output 01/03/17 01/04/17 01/05/17 06:59 06:59 06:59 Intake Total 3650 3677 Output Total 2019 2970 Balance 1630 707 Weight 127 kg General appearance: PRESENT: no acute distress, cooperative Head exam: PRESENT: normocephalic Eye exam: PRESENT: EOMI Mouth exam: PRESENT: moist, neck supple Neck exam: ABSENT: JVD Respiratory exam: PRESENT: clear to auscultation vanessa Cardiovascular exam: PRESENT: RRR. ABSENT: gallop GI/Abdominal exam: PRESENT: normal bowel sounds, soft. ABSENT: distended, tenderness Extremities exam: PRESENT: pedal edema, other - Wound dressing with dry sanguinous drainage noted Neurological exam: PRESENT: alert, awake, oriented to situation Skin exam: PRESENT: dry, warm. ABSENT: cyanosis Results Laboratory Results: 01/04/17 05:40 01/04/17 05:40 Sodium 134.5 L Potassium 5.3 H Chloride 98 Carbon Dioxide 29 Anion Gap 8 BUN 17 Creatinine 1.22 Est GFR ( Amer) > 60 Est GFR (Non-Af Amer) > 60 Glucose 240 H Calcium 9.0 Impressions: Foot X-Ray 12/31/16 19:26 IMPRESSION: Diffuse soft tissue swelling with soft tissue gas present in the 3rd digit and 3rd-4th digit interspace. No radiopaque foreign body. No fracture. Guidance Fluoroscopy 01/02/17 00:00 IMPRESSION: SUCCESSFUL PLACEMENT OF A 5 FR DUAL LUMEN 41 CM PICC IN THE left basilic VEIN. Interventional Vascular Procedure 01/02/17 00:00 IMPRESSION: SUCCESSFUL PLACEMENT OF A 5 FR DUAL LUMEN 41 CM PICC IN THE left basilic VEIN. PICC Line Insertion 01/02/17 00:00 IMPRESSION: SUCCESSFUL PLACEMENT OF A 5 FR DUAL LUMEN 41 CM PICC IN THE left basilic VEIN. Assessment & Plan - Diagnosis (1) Diabetic infection of left foot Is this a current diagnosis for this admission?: Yes (2) Acute renal failure Qualifiers: Acute renal failure type: unspecified Qualified Code(s): N17.9 - Acute kidney failure, unspecified Is this a current diagnosis for this admission?: Yes (3) Coronary artery disease Qualifiers: Coronary Disease-Associated Artery/Lesion type: [place] artery [place] vs. 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 status Is this a current diagnosis for this admission?: Yes (5) Hypertension Qualifiers: Hypertension type: essential hypertension Qualified Code(s): I10 - Essential (primary) hypertension Is this a current diagnosis for this admission?: Yes (6) Osteomyelitis of toe Is this a current diagnosis for this admission?: Yes (7) Bipolar disorder Qualifiers: Active/Remission status: remission status unspecified Qualified Code (s): F31.9 - Bipolar disorder, unspecified Is this a current diagnosis for this admission?: Yes (8) CKD (chronic kidney disease), stage III Is this a current diagnosis for this admission?: Yes (9) HIV (human immunodeficiency virus infection) Is this a current diagnosis for this admission?: Yes (10) History of pulmonary embolism Is this a current diagnosis for this admission?: Yes (11) PTSD (post-traumatic stress disorder) Is this a current diagnosis for this admission?: Yes (12) Peripheral vascular disease Is this a current diagnosis for this admission?: Yes - Time Time Spent with patient: 15-24 minutes - Plan Summary Plan Summary: Discontinue intravenous fluids. Give Kayexalate and recheck potassium in the morning. Await identification of the organisms and cultures. Subsequently when available arranged for home IV antibiotics.
[2017-01-04] MEDS ORDERED: SODIUM POLYSTYRENE SULFONATE 15 GM/60 ML PO ONE (15:00)
--- NOTE | 2017-01-04 19:30 | PDOC PROGRESS REPORT ---
Subjective Progress Note for:: 01/04/17 Subjective:: pain minimal Physical Exam Vital Signs: Temp Pulse Resp BP Pulse Ox 97.3 F 71 16 128/77 H 99 01/04/17 15:32 01/04/17 15:32 01/04/17 15:32 01/04/17 15:32 01/04/17 15:32 Intake & Output 01/03/17 01/04/17 01/05/17 06:59 06:59 06:59 Intake Total 365 3677 720 Output Total 2019 2970 750 Balance 1630 707 -30 Weight 127 kg General appearance: PRESENT: no acute distress, well-developed, well-nourished Head exam: PRESENT: atraumatic, normocephalic Eye exam: PRESENT: conjunctiva pink, EOMI, PERRLA. ABSENT: scleral icterus Ear exam: PRESENT: normal external ear exam Mouth exam: PRESENT: moist, tongue midline Neck exam: ABSENT: carotid bruit, JVD, lymphadenopathy, thyromegaly Respiratory exam: PRESENT: clear to auscultation vanessa. ABSENT: rales, rhonchi, wheezes Cardiovascular exam: PRESENT: RRR. ABSENT: diastolic murmur, rubs, systolic murmur Pulses: PRESENT: normal dorsalis pedis pul Vascular exam: PRESENT: normal capillary refill GI/Abdominal exam: PRESENT: normal bowel sounds, soft. ABSENT: distended, guarding, mass, organolmegaly, rebound, tenderness Rectal exam: PRESENT: deferred Extremities exam: PRESENT: full ROM, other - left foot, s/p Toes amputation wounds has necrotic tissue. ABSENT: calf tenderness, clubbing, pedal edema Neurological exam: PRESENT: alert, awake, oriented to person, oriented to place , oriented to time, oriented to situation, CN II-XII grossly intact. ABSENT: motor sensory deficit Psychiatric exam: PRESENT: appropriate affect, normal mood. ABSENT: homicidal ideation, suicidal ideation Skin exam: PRESENT: dry, intact, warm. ABSENT: cyanosis, rash Results Laboratory Results: 01/04/17 05:40 01/04/17 05:40 Sodium 134.5 L Potassium 5.3 H Chloride 98 Carbon Dioxide 29 Anion Gap 8 BUN 17 Creatinine 1.22 Est GFR ( Amer) > 60 Est GFR (Non-Af Amer) > 60 Glucose 240 H Calcium 9.0 Impressions: Foot X-Ray 12/31/16 19:26 IMPRESSION: Diffuse soft tissue swelling with soft tissue gas present in the 3rd digit and 3rd-4th digit interspace. No radiopaque foreign body. No fracture. Guidance Fluoroscopy 01/02/17 00:00 IMPRESSION: SUCCESSFUL PLACEMENT OF A 5 FR DUAL LUMEN 41 CM PICC IN THE left basilic VEIN. Interventional Vascular Procedure 01/02/17 00:00 IMPRESSION: SUCCESSFUL PLACEMENT OF A 5 FR DUAL LUMEN 41 CM PICC IN THE left basilic VEIN. PICC Line Insertion 01/02/17 00:00 IMPRESSION: SUCCESSFUL PLACEMENT OF A 5 FR DUAL LUMEN 41 CM PICC IN THE left basilic VEIN. Assessment & Plan - Plan Summary Plan Summary: Necrotic tissue on the amputation site , up to the fascial level - excisional sharp debridement performed up to the fascial level. Wound irrigated and dressings applied. Daily wound care with twice daily dressings.
[2017-01-05] MEDS: AZTREONAM 2 GM in DEXTROSE 5%-WATER 100 ML IV SCH ×3 (02:18→17:21)
[2017-01-05] MEDS: OXYCODONE-ACETAMINOPHEN 5-325 MG TABLET PO PRN ×3 (05:52→22:00)
[2017-01-05] MEDS: HYDRALAZINE HCL 50 MG TABLET PO SCH ×3 (05:52→22:00)
[2017-01-05 06:40] LABS: ANION GAP 9 (5-19); BLOOD UREA NITROGEN 15 mg/dL (7-20); CALCIUM 9.1 mg/dL (8.4-10.2); CARBON DIOXIDE 29 mmol/L (22-30); CHLORIDE 97 mmol/L (98-107); CREATININE RESULT 1.15 mg/dL (0.52-1.25); GLUCOSE 250 mg/dL (75-110); SODIUM 135.2 mmol/L (137-145)
[2017-01-05] MEDS: MORPHINE SULFATE 10 MG/ML INJ IV PRN ×2 (08:42→15:45)
[2017-01-05] MEDS: INSULIN LISPRO 100 UNIT/ML 3 ML VIAL SUBCUT PRN ×3 (08:50→22:04)
[2017-01-05] MEDS: CLONIDINE HCL 0.1 MG TABLET PO SCH ×2 (11:28→22:00)
[2017-01-05] MEDS: VANCOMYCIN HCL 1,250 MG in DEXTROSE 5%-WATER 250 ML IV SCH (11:28)
[2017-01-05] MEDS: ATENOLOL 50 MG TABLET PO SCH (11:28)
[2017-01-05] MEDS: NORMAL SALINE 10 ML SDV (SCHEDULED) IV SCH ×2 (13:01→22:00)
[2017-01-05] MEDS: NORMAL SALINE 10 ML SDV (AFTER EACH USE) IV PRN ×4 (13:18→17:22)
--- NOTE | 2017-01-05 17:49 | PDOC PROGRESS REPORT ---
Subjective Progress Note for:: 01/05/17 Subjective:: Had a good bowel movement yesterday. There is no diarrhea. No chills or fever. No chest pain or shortness of breath. Pain is better. No pus reported draining from the wound. Denies any PND or orthopnea. BP noted to be on the higher side. Physical Exam Vital Signs: Temp Pulse Resp BP Pulse Ox 97.9 F 73 14 140/85 H 100 01/05/17 12:00 01/05/17 12:00 01/05/17 12:00 01/05/17 12:00 01/05/17 12:00 Intake & Output 01/04/17 01/05/17 01/06/17 06:59 06:59 06:59 Intake Total 3677 3253 Output Total 2970 750 Balance 707 2503 General appearance: PRESENT: no acute distress, cooperative Head exam: PRESENT: normocephalic Eye exam: PRESENT: EOMI Mouth exam: PRESENT: moist, neck supple Neck exam: ABSENT: JVD Respiratory exam: PRESENT: clear to auscultation vanessa Cardiovascular exam: PRESENT: RRR GI/Abdominal exam: PRESENT: soft. ABSENT: distended, tenderness Extremities exam: PRESENT: pedal edema, other - Dressing with some sanguinous drainage. Neurological exam: PRESENT: alert, awake, oriented to situation Skin exam: PRESENT: dry, warm. ABSENT: cyanosis Results Laboratory Results: 01/05/17 06:00 01/05/17 06:00 Sodium 135.2 L Potassium 5.0 Chloride 97 L Carbon Dioxide 29 Anion Gap 9 BUN 15 Creatinine 1.15 Est GFR ( Amer) > 60 Est GFR (Non-Af Amer) > 60 Glucose 250 H Calcium 9.1 Impressions: Foot X-Ray 12/31/16 19:26 IMPRESSION: Diffuse soft tissue swelling with soft tissue gas present in the 3rd digit and 3rd-4th digit interspace. No radiopaque foreign body. No fracture. Guidance Fluoroscopy 01/02/17 00:00 IMPRESSION: SUCCESSFUL PLACEMENT OF A 5 FR DUAL LUMEN 41 CM PICC IN THE left basilic VEIN. Interventional Vascular Procedure 01/02/17 00:00 IMPRESSION: SUCCESSFUL PLACEMENT OF A 5 FR DUAL LUMEN 41 CM PICC IN THE left basilic VEIN. PICC Line Insertion 01/02/17 00:00 IMPRESSION: SUCCESSFUL PLACEMENT OF A 5 FR DUAL LUMEN 41 CM PICC IN THE left basilic VEIN. Assessment & Plan - Diagnosis (1) Diabetic infection of left foot Is this a current diagnosis for this admission?: Yes (2) Acute renal failure Qualifiers: Acute renal failure type: unspecified Qualified Code(s): N17.9 - Acute kidney failure, unspecified Is this a current diagnosis for this admission?: Yes (3) Coronary artery disease Qualifiers: Coronary Disease-Associated Artery/Lesion type: [place] artery [place] vs. 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 insulin use: unspecified long term care social worker insulin use status Is this a current diagnosis for this admission?: Yes (5) Hypertension Qualifiers: Hypertension type: essential hypertension Qualified Code(s): I10 - Essential (primary) hypertension Is this a current diagnosis for this admission?: Yes (6) Osteomyelitis of toe Is this a current diagnosis for this admission?: Yes (7) Bipolar disorder Qualifiers: Active/Remission status: remission status unspecified Qualified Code (s): F31.9 - Bipolar disorder, unspecified Is this a current diagnosis for this admission?: Yes (8) CKD (chronic kidney disease), stage III Is this a current diagnosis for this admission?: Yes (9) HIV (human immunodeficiency virus infection) Is this a current diagnosis for this admission?: Yes (10) History of pulmonary embolism Is this a current diagnosis for this admission?: Yes (11) PTSD (post-traumatic stress disorder) Is this a current diagnosis for this admission?: Yes (12) Peripheral vascular disease Is this a current diagnosis for this admission?: Yes - Time Time Spent with patient: 25-34 minutes - Plan Summary Plan Summary: Case discussed with surgery, patient will need antibiotics for about 4-6 weeks due to immunocompromise from HIV. PICC line has already been placed. Patient had underlying CKD and being followed by Dr. Camargo. We will therefore switch the antibiotic to Zyvox and discontinue the vancomycin. We will likewise DC the aztreonam. Cultures showed more for staph aureus, enterococcus, and Streptococcus. Discontinue intravenous fluids. Continue supportive care.
--- NOTE | 2017-01-05 21:32 | PDOC PROGRESS REPORT ---
Subjective Subjective:: No complaints. Physical Exam Vital Signs: Temp Pulse Resp BP Pulse Ox 97.5 F 70 12 139/89 H 99 01/05/17 16:00 01/05/17 19:00 01/05/17 16:00 01/05/17 16:00 01/05/17 16:00 Intake & Output 01/04/17 01/05/17 01/06/17 06:59 06:59 06:59 Intake Total 3677 3253 570 Output Total 2970 750 700 Balance 707 2503 -130 General appearance: PRESENT: no acute distress Head exam: PRESENT: normocephalic Eye exam: PRESENT: EOMI Mouth exam: PRESENT: tongue midline Extremities exam: PRESENT: other - Left foot dressing removed. 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 Area on the dorsal aspect of the foot has some erythema, swelling. Counter incision on the dorsal aspect of the foot. Wound is irrigated and cleansed with hydrogen peroxide and gauze. Counter incision and tract are probed with hydrogen peroxide soaked Q-tips. The tract is packed with quarter-inch iodoform gauze. The wound is redressed with 4 x 4's and Kerlix roll. Neurological exam: PRESENT: alert, oriented to situation Psychiatric exam: PRESENT: appropriate affect Results Laboratory Results: 01/05/17 06:00 01/05/17 06:00 Sodium 135.2 L Potassium 5.0 Chloride 97 L Carbon Dioxide 29 Anion Gap 9 BUN 15 Creatinine 1.15 Est GFR ( Amer) > 60 Est GFR (Non-Af Amer) > 60 Glucose 250 H Calcium 9.1 Impressions: Foot X-Ray 12/31/16 19:26 IMPRESSION: Diffuse soft tissue swelling with soft tissue gas present in the 3rd digit and 3rd-4th digit interspace. No radiopaque foreign body. No fracture. Guidance Fluoroscopy 01/02/17 00:00 IMPRESSION: SUCCESSFUL PLACEMENT OF A 5 FR DUAL LUMEN 41 CM PICC IN THE left basilic VEIN. Interventional Vascular Procedure 01/02/17 00:00 IMPRESSION: SUCCESSFUL PLACEMENT OF A 5 FR DUAL LUMEN 41 CM PICC IN THE left basilic VEIN. PICC Line Insertion 01/02/17 00:00 IMPRESSION: SUCCESSFUL PLACEMENT OF A 5 FR DUAL LUMEN 41 CM PICC IN THE left basilic VEIN. Assessment & Plan - Diagnosis (1) Skin ulcer of third toe of right foot with necrosis of bone Is this a current diagnosis for this admission?: YesPlan: Status post second and third toe amp. Continue antibiotics for 6 weeks. Continue daily wound care. Upon discharge, will need follow-up in wound care clinic. (2) Bipolar disorder Qualifiers: Active/Remission status: remission status unspecified Qualified Code (s): F31.9 - Bipolar disorder, unspecified Is this a current diagnosis for this admission?: Yes (3) Cellulitis of right lower extremity Is this a current diagnosis for this admission?: Yes (4) Cellulitis of second toe, left Is this a current diagnosis for this admission?: Yes (5) Cellulitis of third toe, left Is this a current diagnosis for this admission?: Yes (6) Cocaine abuse Is this a current diagnosis for this admission?: Yes (7) Coronary artery disease Qualifiers: Coronary Disease-Associated Artery/Lesion type: [place] artery [place] vs. transplanted heart: [place] heart Associated angina: without angina Qualified Code(s): I25.10 - Atherosclerotic heart disease of [place] coronary artery without angina pectoris Is this a current diagnosis for this admission?: Yes (8) Diabetes Qualifiers: Diabetes mellitus type: type 2 Diabetes mellitus complication detail: with peripheral angiopathy with gangrene Diabetes mellitus senior care insulin use: unspecified senior care insulin use status Is this a current diagnosis for this admission?: Yes (9) Diabetic foot infection Is this a current diagnosis for this admission?: Yes (10) History of pulmonary embolism Is this a current diagnosis for this admission?: Yes (11) Hyperkalemia Is this a current diagnosis for this admission?: Yes (12) Hypertension Qualifiers: Hypertension type: essential hypertension Qualified Code(s): I10 - Essential (primary) hypertension Is this a current diagnosis for this admission?: Yes (13) Normocytic anemia Is this a current diagnosis for this admission?: Yes (14) Osteomyelitis of toe Is this a current diagnosis for this admission?: Yes (15) Poorly controlled diabetes mellitus Is this a current diagnosis for this admission?: Yes (16) Tobacco abuse Is this a current diagnosis for this admission?: Yes
[2017-01-05] MEDS: LINEZOLID 300 ML IV SCH (21:59)
[2017-01-06] MEDS: MORPHINE SULFATE 10 MG/ML INJ IV PRN ×4 (01:55→23:27)
[2017-01-06] MEDS: OXYCODONE-ACETAMINOPHEN 5-325 MG TABLET PO PRN ×3 (05:52→18:26)
[2017-01-06] MEDS: HYDRALAZINE HCL 50 MG TABLET PO SCH ×3 (05:55→23:26)
[2017-01-06] MEDS: LINEZOLID 300 ML IV SCH ×2 (09:51→23:28)
[2017-01-06] MEDS: CLONIDINE HCL 0.1 MG TABLET PO SCH ×2 (09:52→23:25)
[2017-01-06] MEDS: ATENOLOL 50 MG TABLET PO SCH (09:52)
[2017-01-06] MEDS: NORMAL SALINE 10 ML SDV (SCHEDULED) IV SCH ×2 (09:53→23:27)
[2017-01-06] MEDS: NORMAL SALINE 10 ML SDV (AFTER EACH USE) IV PRN (11:35)
[2017-01-06] MEDS: INSULIN LISPRO 100 UNIT/ML 3 ML VIAL SUBCUT PRN ×3 (11:35→23:27)
--- NOTE | 2017-01-06 12:23 | PROGRESS NOTE E ---
Progress Note NAME: MILADYS LONDON : 1970 AGE: 46Y DATE: 01/06/2017 ROOM: 404 SUBJECTIVE: The patient is alert and appropriate and comfortable. His dressing is changed. OBJECTIVE: The wound is with some mild edema and erythema on the dorsum of the foot, and I removed the dressing and repacked the wound for the counter-incision to the amputation site. There is granulation tissue forming. There is no evidence of overt purulence. ASSESSMENT/PLAN: Agree with continued IV antibiotic therapy which should be changed to p.o. therapy at the time of discharge. Recommend continued aggressive dressing changes b.i.d. and soon the wounds should be able to be treated with soap and water and dressing changes. DICTATING PHYSICIAN: ANNEMARIE RANDLE M.D. [id number] MEAGNY#: [id number] ID: [id number] JOB#: [id number] ACCT: [id number] cc: >
--- NOTE | 2017-01-06 16:49 | PDOC PROGRESS REPORT ---
Subjective Progress Note for:: 01/06/17 Subjective:: Complains of some pain in his left foot at the surgical site Physical Exam Vital Signs: Temp Pulse Resp BP Pulse Ox 98.1 F 65 18 108/73 98 01/06/17 16:00 01/06/17 16:00 01/06/17 16:00 01/06/17 16:00 01/06/17 16:00 Intake & Output 01/05/17 01/06/17 01/07/17 06:59 06:59 06:59 Intake Total 3253 1460 701 Output Total 750 1100 Balance 2503 360 701 General appearance: PRESENT: no acute distress Eye exam: PRESENT: conjunctiva pink. ABSENT: scleral icterus Neck exam: ABSENT: carotid bruit, JVD, lymphadenopathy, thyromegaly Respiratory exam: PRESENT: clear to auscultation vanessa. ABSENT: rales, rhonchi, wheezes Cardiovascular exam: PRESENT: RRR. ABSENT: diastolic murmur, rubs, systolic murmur GI/Abdominal exam: PRESENT: normal bowel sounds, soft. ABSENT: distended, guarding, mass, organolmegaly, rebound, tenderness Extremities exam: PRESENT: other - Left foot and a dressing.. ABSENT: calf tenderness, clubbing Neurological exam: PRESENT: alert, awake, oriented to person, oriented to place , oriented to time, oriented to situation Psychiatric exam: PRESENT: appropriate affect Skin exam: PRESENT: other - Dressing in place on the left foot Results Laboratory Results: 01/05/17 06:00 Impressions: Foot X-Ray 12/31/16 19:26 IMPRESSION: Diffuse soft tissue swelling with soft tissue gas present in the 3rd digit and 3rd-4th digit interspace. No radiopaque foreign body. No fracture. Guidance Fluoroscopy 01/02/17 00:00 IMPRESSION: SUCCESSFUL PLACEMENT OF A 5 FR DUAL LUMEN 41 CM PICC IN THE left basilic VEIN. Interventional Vascular Procedure 01/02/17 00:00 IMPRESSION: SUCCESSFUL PLACEMENT OF A 5 FR DUAL LUMEN 41 CM PICC IN THE left basilic VEIN. PICC Line Insertion 01/02/17 00:00 IMPRESSION: SUCCESSFUL PLACEMENT OF A 5 FR DUAL LUMEN 41 CM PICC IN THE left basilic VEIN. Assessment & Plan - Diagnosis (1) Osteomyelitis of toe Is this a current diagnosis for this admission?: YesPlan: The patient is currently on Zyvox. He has multiple organisms that have grown from his culture including staph aureus, Streptococcus, Prevotella, Corynebacterium as well as enterococcus. The patient will need a total of 6 weeks of IV antibiotics and will set this up for outpatient. (2) Diabetes Qualifiers: Diabetes mellitus type: type 2 Diabetes mellitus complication detail: with peripheral angiopathy with gangrene Diabetes mellitus fdc insulin use: unspecified intermediate frame tender insulin use status Is this a current diagnosis for this admission?: YesPlan: Continue with sliding scale insulin. (3) Peripheral vascular disease Is this a current diagnosis for this admission?: Yes (4) Acute renal failure Qualifiers: Acute renal failure type: unspecified Qualified Code(s): N17.9 - Acute kidney failure, unspecified Is this a current diagnosis for this admission?: YesPlan: This has resolved. (5) Anxiety and depression Is this a current diagnosis for this admission?: Yes (6) Coronary artery disease Qualifiers: Coronary Disease-Associated Artery/Lesion type: [place] artery [place] vs. transplanted heart: [place] heart Associated angina: without angina Qualified Code(s): I25.10 - Atherosclerotic heart disease of [place] coronary artery without angina pectoris Is this a current diagnosis for this admission?: YesPlan: Denies any chest pain (7) Hyperkalemia Is this a current diagnosis for this admission?: YesPlan: Resolved (8) Hypertension Qualifiers: Hypertension type: essential hypertension Qualified Code(s): I10 - Essential (primary) hypertension Is this a current diagnosis for this admission?: YesPlan: Blood pressure is under good control. (9) Anemia Is this a current diagnosis for this admission?: YesPlan: Stable (10) Bipolar disorder Qualifiers: Active/Remission status: remission status unspecified Qualified Code (s): F31.9 - Bipolar disorder, unspecified Is this a current diagnosis for this admission?: Yes (11) CKD (chronic kidney disease), stage III Is this a current diagnosis for this admission?: YesPlan: Patient's creatinine has returned to normal. (12) HIV (human immunodeficiency virus infection) Is this a current diagnosis for this admission?: Yes (13) History of pulmonary embolism Is this a current diagnosis for this admission?: YesPlan: Patient is currently on heparin - Time Time Spent with patient: 25-34 minutes - Inpatient Certification Medical Necessity: Need Close Monitoring Due to Risk of Patient Decompensation, Need for IV Antibiotics
[2017-01-07 05:50] LABS: ABSOLUTE BASOPHILS # (AUTO) 0.1 10^3/uL (0.0-0.2); ABSOLUTE EOSINOPHILS # (AUTO) 0.3 10^3/uL (0.0-0.6); ABSOLUTE LYMPHOCYTES (AUTO) 1.3 10^3/uL (0.5-4.7); ABSOLUTE MONOCYTES (AUTO) 0.9 10^3/uL (0.1-1.4); ABSOLUTE NEUT (AUTO) 3.6 10^3/uL (1.7-8.2); BASOPHILS % (AUTO) 1.3 % (0-2); EOSINOPHILS % (AUTO) 4.8 % (0-6); HEMOGLOBIN 10.4 g/dL (13.5-17.0); HGB HCT DIFFERENCE -0.8; LYMPHOCYTES % (AUTO) 21.7 % (13-45); MEAN CORPUSCULAR HEMOGLOBIN 27.5 pg (27.0-33.4); MEAN CORPUSCULAR HGB CONC 32.4 g/dL (32.0-36.0); MEAN CORPUSCULAR VOLUME 85 fl (80-97); MONOCYTES % (AUTO) 14.6 % (3-13); RED BLOOD COUNT 3.77 10^6/uL (4.35-5.55); RED CELL DISTRIBUTION WIDTH 14.1 % (11.5-14.0); SEGMENTED NEUTROPHILS % (AUTO) 57.6 % (42-78); WHITE BLOOD COUNT 6.2 10^3/uL (4.0-10.5)
[2017-01-07 06:08] LABS: ANION GAP 10 (5-19); BLOOD UREA NITROGEN 21 mg/dL (7-20); CALCIUM 9.5 mg/dL (8.4-10.2); CARBON DIOXIDE 28 mmol/L (22-30); CHLORIDE 98 mmol/L (98-107); CREATININE RESULT 1.35 mg/dL (0.52-1.25); GLUCOSE 163 mg/dL (75-110); POTASSIUM 4.7 mmol/L (3.6-5.0); SODIUM 135.8 mmol/L (137-145)
[2017-01-07] MEDS: HYDRALAZINE HCL 50 MG TABLET PO SCH ×3 (06:32→21:37)
[2017-01-07] MEDS: LINEZOLID 300 ML IV SCH ×2 (09:15→21:37)
[2017-01-07] MEDS: CLONIDINE HCL 0.1 MG TABLET PO SCH ×2 (09:16→21:37)
[2017-01-07] MEDS: ATENOLOL 50 MG TABLET PO SCH (09:16)
[2017-01-07] MEDS: NORMAL SALINE 10 ML SDV (SCHEDULED) IV SCH ×2 (09:17→21:37)
[2017-01-07] MEDS: NORMAL SALINE 10 ML SDV (AFTER EACH USE) IV PRN (09:17)
[2017-01-07] MEDS: INSULIN LISPRO 100 UNIT/ML 3 ML VIAL SUBCUT PRN ×4 (09:18→22:20)
[2017-01-07] MEDS: MORPHINE SULFATE 10 MG/ML INJ IV PRN ×2 (09:35→15:00)
--- NOTE | 2017-01-07 10:46 | PDOC PROGRESS REPORT ---
Subjective Progress Note for:: 01/07/17 Subjective:: Complains of some pain in his left foot at the surgical site Physical Exam Vital Signs: Temp Pulse Resp BP Pulse Ox 97.8 F 72 16 126/87 H 97 01/07/17 04:26 01/07/17 04:26 01/07/17 04:26 01/07/17 04:26 01/07/17 04:26 Intake & Output 01/06/17 01/07/17 01/08/17 06:59 06:59 06:59 Intake Total 1460 1801 Output Total 1100 200 Balance 360 1601 General appearance: PRESENT: no acute distress Eye exam: PRESENT: conjunctiva pink. ABSENT: scleral icterus Mouth exam: PRESENT: moist, tongue midline Neck exam: ABSENT: JVD Respiratory exam: PRESENT: clear to auscultation vanessa. ABSENT: rales, rhonchi, wheezes Cardiovascular exam: PRESENT: RRR. ABSENT: diastolic murmur, rubs, systolic murmur Vascular exam: PRESENT: normal capillary refill GI/Abdominal exam: PRESENT: normal bowel sounds, soft. ABSENT: distended, guarding, mass, organolmegaly, rebound, tenderness Extremities exam: PRESENT: other - Dressing in place on the left foot.. ABSENT : calf tenderness, clubbing, pedal edema Neurological exam: PRESENT: alert, awake, oriented to person, oriented to place , oriented to time, oriented to situation Psychiatric exam: PRESENT: appropriate affect Skin exam: PRESENT: other - Dressing in place on the left foot. Results Laboratory Results: 01/07/17 05:25 01/07/17 05:25 01/07/17 01/07/17 05:25 05:25 WBC 6.2 RBC 3.77 L Hgb 10.4 L Hct 32.0 L MCV 85 MCH 27.5 MCHC 32.4 RDW 14.1 H Plt Count 433 Seg Neutrophils % 57.6 Lymphocytes % 21.7 Monocytes % 14.6 H Eosinophils % 4.8 Basophils % 1.3 Absolute Neutrophils 3.6 Absolute Lymphocytes 1.3 Absolute Monocytes 0.9 Absolute Eosinophils 0.3 Absolute Basophils 0.1 Sodium 135.8 L Potassium 4.7 Chloride 98 Carbon Dioxide 28 Anion Gap 10 BUN 21 H Creatinine 1.35 H Est GFR ( Amer) > 60 Est GFR (Non-Af Amer) 56 L Glucose 163 H Calcium 9.5 Impressions: Foot X-Ray 12/31/16 19:26 IMPRESSION: Diffuse soft tissue swelling with soft tissue gas present in the 3rd digit and 3rd-4th digit interspace. No radiopaque foreign body. No fracture. Guidance Fluoroscopy 01/02/17 00:00 IMPRESSION: SUCCESSFUL PLACEMENT OF A 5 FR DUAL LUMEN 41 CM PICC IN THE left basilic VEIN. Interventional Vascular Procedure 01/02/17 00:00 IMPRESSION: SUCCESSFUL PLACEMENT OF A 5 FR DUAL LUMEN 41 CM PICC IN THE left basilic VEIN. PICC Line Insertion 01/02/17 00:00 IMPRESSION: SUCCESSFUL PLACEMENT OF A 5 FR DUAL LUMEN 41 CM PICC IN THE left basilic VEIN. Assessment & Plan - Diagnosis (1) Osteomyelitis of toe Is this a current diagnosis for this admission?: YesPlan: The patient is currently on Zyvox. He has multiple organisms that have grown from his culture including staph aureus, Streptococcus, Prevotella, Corynebacterium as well as enterococcus. The patient will need a total of 6 weeks of IV antibiotics and will set this up for outpatient. 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 (3) Peripheral vascular disease Is this a current diagnosis for this admission?: Yes (4) Acute renal failure Qualifiers: Acute renal failure type: unspecified Qualified Code(s): N17.9 - Acute kidney failure, unspecified Is this a current diagnosis for this admission?: YesPlan: This has resolved. (5) Anxiety and depression Is this a current diagnosis for this admission?: Yes (6) Coronary artery disease Qualifiers: Coronary Disease-Associated Artery/Lesion type: [place] artery [place] vs. transplanted heart: [place] heart Associated angina: without angina Qualified Code(s): I25.10 - Atherosclerotic heart disease of [place] coronary artery without angina pectoris Is this a current diagnosis for this admission?: YesPlan: Denies any chest pain (7) Hyperkalemia Is this a current diagnosis for this admission?: YesPlan: Resolved (8) Hypertension Qualifiers: Hypertension type: essential hypertension Qualified Code(s): I10 - Essential (primary) hypertension Is this a current diagnosis for this admission?: YesPlan: Blood pressure is under good control. (9) Anemia Is this a current diagnosis for this admission?: YesPlan: Stable (10) Bipolar disorder Qualifiers: Active/Remission status: remission status unspecified Qualified Code (s): F31.9 - Bipolar disorder, unspecified Is this a current diagnosis for this admission?: Yes (11) CKD (chronic kidney disease), stage III Is this a current diagnosis for this admission?: YesPlan: Patient's creatinine has returned to normal. (12) HIV (human immunodeficiency virus infection) Is this a current diagnosis for this admission?: Yes (13) History of pulmonary embolism Is this a current diagnosis for this admission?: YesPlan: Patient is currently on heparin - Time Time Spent with patient: 25-34 minutes - Plan Summary Plan Summary: Patient should be discharged home tomorrow with PICC line with home health to complete antibiotic therapy
[2017-01-07] MEDS: OXYCODONE-ACETAMINOPHEN 5-325 MG TABLET PO PRN ×2 (13:11→19:25)
--- NOTE | 2017-01-07 16:48 | PROGRESS NOTE E ---
Progress Note NAME: MILADYS LONDON : 1970 AGE: 46Y DATE: 01/07/2017 ROOM: 404 The patient is doing very well today. He continues to have frequent dressing changes, and plan is for discharge home tomorrow for outpatient management, for IV antibiotic care for 6 weeks which will be managed by PICC line. The patient will be seen in the wound care center in the next 2-3 days, and this is being arranged by his hospitalist/admitting physicians. He is alert and appropriate and states he is feeling much better. I am in agreement with this continued outpatient wound care management. DICTATING PHYSICIAN: ANNEMARIE RANDLE M.D. [id number] PHY#: [id number] ID: [id number] JOB#: [id number] ACCT: [id number] cc: >
[2017-01-08] MEDS: HYDRALAZINE HCL 50 MG TABLET PO SCH (06:46)
[2017-01-08 07:05] LABS: ABSOLUTE BASOPHILS # (AUTO) 0.1 10^3/uL (0.0-0.2); ABSOLUTE EOSINOPHILS # (AUTO) 0.2 10^3/uL (0.0-0.6); ABSOLUTE LYMPHOCYTES (AUTO) 1.2 10^3/uL (0.5-4.7); ABSOLUTE MONOCYTES (AUTO) 0.8 10^3/uL (0.1-1.4); ABSOLUTE NEUT (AUTO) 3.8 10^3/uL (1.7-8.2); BASOPHILS % (AUTO) 1.9 % (0-2); HEMATOCRIT 32.1 % (37.9-51.0); HEMOGLOBIN 10.8 g/dL (13.5-17.0); HGB HCT DIFFERENCE 0.3; LYMPHOCYTES % (AUTO) 20.2 % (13-45); MEAN CORPUSCULAR HEMOGLOBIN 28.2 pg (27.0-33.4); MEAN CORPUSCULAR HGB CONC 33.6 g/dL (32.0-36.0); MEAN CORPUSCULAR VOLUME 84 fl (80-97); MONOCYTES % (AUTO) 12.8 % (3-13); RED BLOOD COUNT 3.81 10^6/uL (4.35-5.55); RED CELL DISTRIBUTION WIDTH 13.8 % (11.5-14.0); SEGMENTED NEUTROPHILS % (AUTO) 61.1 % (42-78); WHITE BLOOD COUNT 6.2 10^3/uL (4.0-10.5)
[2017-01-08 07:23] LABS: ANION GAP 12 (5-19); BLOOD UREA NITROGEN 22 mg/dL (7-20); CALCIUM 9.8 mg/dL (8.4-10.2); CARBON DIOXIDE 27 mmol/L (22-30); CHLORIDE 97 mmol/L (98-107); CREATININE RESULT 1.27 mg/dL (0.52-1.25); GLUCOSE 303 mg/dL (75-110); POTASSIUM 5.3 mmol/L (3.6-5.0); SODIUM 135.7 mmol/L (137-145)
[2017-01-08] MEDS: INSULIN LISPRO 100 UNIT/ML 3 ML VIAL SUBCUT PRN ×2 (08:27→12:36)
[2017-01-08] MEDS: OXYCODONE-ACETAMINOPHEN 5-325 MG TABLET PO PRN (08:27)
[2017-01-08] MEDS: NORMAL SALINE 10 ML SDV (SCHEDULED) IV SCH (09:39)
[2017-01-08] MEDS: ATENOLOL 50 MG TABLET PO SCH (09:39)
[2017-01-08] MEDS: CLONIDINE HCL 0.1 MG TABLET PO SCH (09:39)
[2017-01-08] MEDS: LINEZOLID 300 ML IV SCH (09:39)
--- NOTE | 2017-01-08 11:53 | PDOC DISCHARGE SUMMARY ---
General - Admit/Disc Date/PCP Admission Date/Primary Care Provider: 01/01/17 17:14 Discharge Date: 01/08/17 - Discharge Diagnosis (1) Osteomyelitis of toe Is this a current diagnosis for this admission?: YesSummary: Status post agitation the left second third toes. Patient is to be treated with Zyvox 6 weeks total. Will get outpatient follow-up at the wound clinic. (2) Diabetes Is this a current diagnosis for this admission?: Yes (3) Peripheral vascular disease Is this a current diagnosis for this admission?: Yes (4) Acute renal failure Is this a current diagnosis for this admission?: Yes (5) Anxiety and depression Is this a current diagnosis for this admission?: Yes (6) Coronary artery disease Is this a current diagnosis for this admission?: Yes (7) Hyperkalemia Is this a current diagnosis for this admission?: Yes (8) Hypertension Is this a current diagnosis for this admission?: Yes (9) Anemia Is this a current diagnosis for this admission?: Yes (10) Bipolar disorder Is this a current diagnosis for this admission?: Yes (11) CKD (chronic kidney disease), stage III Is this a current diagnosis for this admission?: Yes (12) HIV (human immunodeficiency virus infection) Is this a current diagnosis for this admission?: Yes (13) History of pulmonary embolism Is this a current diagnosis for this admission?: Yes - Additional Information Resuscitation Status: Full Code Discharge Diet: Diabetic Discharge Activity: Activity As Tolerated Home Medications: Alprazolam [Xanax] 2 mg PO BID 01/01/17 Amitriptyline HCl [Elavil 25 mg Tablet] 25 mg PO DAILY 01/01/17 Aripiprazole [Abilify 15 mg Tablet] 15 mg PO DAILY 01/01/17 Fluoxetine HCl [Prozac] 40 mg PO QAM 01/01/17 Gabapentin [Neurontin 400 mg Capsule] 400 mg PO QID 01/01/17 Insulin Glargine,Hum.rec.anlog [Lantus Insulin 100 Unit/1 ml 10 ml] 45 units SQ QHS 01/01/17 Lisinopril [Prinivil 5 mg Tablet] 5 mg PO QHS 01/01/17 Simvastatin [Zocor 20 mg Tablet] 20 mg PO QHS 01/01/17 Zolpidem Tartrate [Ambien] 15 mg PO HSP PRN 01/01/17 Atenolol [Tenormin 50 mg Tablet] 100 mg PO DAILY #30 tablet 01/08/17 Clonidine HCl [Catapres 0.1 mg Tablet] 0.1 mg PO Q12 #60 tablet 01/08/17 Hydralazine HCl [Apresoline 50 mg Tablet] 50 mg PO Q8 #90 tablet 01/08/17 Linezolid [Zyvox RTU 600 mg/300 ml Premixed] 600 mg IV Q12 #90 rtupb 01/08/17 Oxycodone HCl/Acetaminophen [Percocet 5-325 mg Tablet] 2 tab PO Q6HP PRN #30 tablet 01/08/17 History of Present Illness History of Present Illness: MILADYS LONDON III is a 46 year old male with a history of HIV, bipolar disorder substance abuse and COPD and diabetes who presented with left foot pain. The patient was found to have lost mellitus of the left second third toes the patient did have some fevers and chills prior to presentation along with nausea and vomiting. Hospital Course Hospital Course: 46-year-old male with HIV, COPD and diabetes who presented with left foot pain. Patient was found to have us tomorrow unless of the second and third toes and was treated with IV antibiotics and eventually required". The patient has had problems with ostomy mellitus previously on the other foot requiring multiple amputations. Surgery felt the patient would need 6 weeks of IV antibiotics and given his history of MRSA patient was put on Zyvox. The patient has gotten local wound care by the general surgeons while here in the hospital they recommended the patient have routine follow the wound clinic and he will follow- up with them tomorrow. Patient has a PICC line in place and will be sent home with Zyvox until February 11. The rest of his medical problems all were stable. Patient is not currently taking any HIV medications. Physical Exam Vital Signs: Temp Pulse Resp BP Pulse Ox 97.9 F 68 20 158/94 H 99 01/08/17 08:00 01/08/17 08:00 01/08/17 08:00 01/08/17 08:00 01/08/17 08:00 Intake & Output 01/07/17 01/08/17 01/09/17 06:59 06:59 06:59 Intake Total 1801 2470 Output Total 200 400 Balance 1601 2070 General appearance: PRESENT: no acute distress Eye exam: PRESENT: conjunctiva pink. ABSENT: scleral icterus Mouth exam: PRESENT: moist, tongue midline Neck exam: ABSENT: carotid bruit, JVD, lymphadenopathy, thyromegaly Respiratory exam: PRESENT: clear to auscultation vanessa. ABSENT: rales, rhonchi, wheezes Cardiovascular exam: PRESENT: RRR. ABSENT: diastolic murmur, rubs, systolic murmur GI/Abdominal exam: PRESENT: normal bowel sounds, soft. ABSENT: distended, guarding, mass, organolmegaly, rebound, tenderness Extremities exam: PRESENT: other - Dressing in place on the left foot.. ABSENT : calf tenderness, clubbing, pedal edema Neurological exam: PRESENT: alert, awake, oriented to person, oriented to place , oriented to time, oriented to situation, CN II-XII grossly intact. ABSENT: motor sensory deficit Psychiatric exam: PRESENT: appropriate affect Skin exam: PRESENT: dry, intact, warm, other - Dressing in place on the left foot.. ABSENT: cyanosis, rash Results Laboratory Results: 01/08/17 06:40 01/08/17 06:40 01/08/17 01/08/17 06:40 06:40 WBC 6.2 RBC 3.81 L Hgb 10.8 L Hct 32.1 L MCV 84 MCH 28.2 MCHC 33.6 RDW 13.8 Plt Count 465 H Seg Neutrophils % 61.1 Lymphocytes % 20.2 Monocytes % 12.8 Eosinophils % 4.0 Basophils % 1.9 Absolute Neutrophils 3.8 Absolute Lymphocytes 1.2 Absolute Monocytes 0.8 Absolute Eosinophils 0.2 Absolute Basophils 0.1 Sodium 135.7 L Potassium 5.3 H Chloride 97 L Carbon Dioxide 27 Anion Gap 12 BUN 22 H Creatinine 1.27 H Est GFR ( Amer) > 60 Est GFR (Non-Af Amer) > 60 Glucose 303 H Calcium 9.8 Impressions: Foot X-Ray 12/31/16 19:26 IMPRESSION: Diffuse soft tissue swelling with soft tissue gas present in the 3rd digit and 3rd-4th digit interspace. No radiopaque foreign body. No fracture. Guidance Fluoroscopy 01/02/17 00:00 IMPRESSION: SUCCESSFUL PLACEMENT OF A 5 FR DUAL LUMEN 41 CM PICC IN THE left basilic VEIN. Interventional Vascular Procedure 01/02/17 00:00 IMPRESSION: SUCCESSFUL PLACEMENT OF A 5 FR DUAL LUMEN 41 CM PICC IN THE left basilic VEIN. PICC Line Insertion 01/02/17 00:00 IMPRESSION: SUCCESSFUL PLACEMENT OF A 5 FR DUAL LUMEN 41 CM PICC IN THE left basilic VEIN. Qualifiers PATEINT BEING DISCHARGED WITH ANY OF THE FOLLOWING DIAGNOSIS?: No Plan Discharge Plan: Patient is discharged home in stable condition. He will follow-up with the wound clinic tomorrow for local wound care in his left foot. Patient is being sent home with home health for IV Zyvox until February 11. Patient will need routine PIC line care. Time Spent: Greater than 30 Minutes
[2017-01-08 12:40] VITALS: BP 116/80
== END 2017-01-08 13:40 | disposition home health service (06) | DRG 616 ==
LOC: ER 15:20 → EH 01-01 05:17 → UNDOADMIN 01-01 05:17 → EH 01-01 16:02 → 4N 01-01 16:02 → EH 01-01 17:14 → 4N 01-01 17:14
PROVIDERS: ADMIT Family Medicine; ATTEND Family Medicine
PROC: 0Y6U0Z0 Detachment at Left 3rd Toe, Complete, Open Approach (ICD-10-PCS; 2017-01-01)
PROC: 0Y6S0Z0 Detachment at Left 2nd Toe, Complete, Open Approach (ICD-10-PCS; principal; 2017-01-01 10:30)
PROC: 02HV33Z Insertion of Infusion Device into Superior Vena Cava, Percutaneous Approach (ICD-10-PCS; 2017-01-02)
PROC: B548ZZA Ultrasonography of Superior Vena Cava, Guidance (ICD-10-PCS; 2017-01-02)
DX: E11.69 Type 2 diabetes mellitus with other specified complication (principal); B20 Human immunodeficiency virus [HIV] disease; M86.9 Osteomyelitis, unspecified; Z68.41 Body mass index [BMI] 40.0-44.9, adult; L97.519 Non-pressure chronic ulcer of other part of right foot with unspecified severity; Z79.4 Long term (current) use of insulin; F31.9 Bipolar disorder, unspecified; F43.10 Post-traumatic stress disorder, unspecified; J44.9 Chronic obstructive pulmonary disease, unspecified; I12.9 Hypertensive chronic kidney disease with stage 1 through stage 4 chronic kidney disease, or unspecified chronic kidney disease; N18.3 Chronic kidney disease, stage 3 (moderate); E11.22 Type 2 diabetes mellitus with diabetic chronic kidney disease; N17.9 Acute kidney failure, unspecified; E78.5 Hyperlipidemia, unspecified; F14.90 Cocaine use, unspecified, uncomplicated; F12.90 Cannabis use, unspecified, uncomplicated; I25.10 Atherosclerotic heart disease of native coronary artery without angina pectoris; D64.9 Anemia, unspecified; I73.9 Peripheral vascular disease, unspecified; H54.12 Blindness, left eye, low vision right eye; E87.5 Hyperkalemia; E66.9 Obesity, unspecified; Z79.899 Other long term (current) drug therapy; Z79.01 Long term (current) use of anticoagulants; Z86.711 Personal history of pulmonary embolism; I25.2 Old myocardial infarction; Z96.651 Presence of right artificial knee joint; Z86.14 Personal history of Methicillin resistant Staphylococcus aureus infection; F17.210 Nicotine dependence, cigarettes, uncomplicated; Z89.421 Acquired absence of other right toe(s)
CPT/HCPCS: 01480; 36415; 36569; 76937; 77001; 80048; 80053; 80202; 80307; 82565; 82962; 85025; 85610; 85730; 87040; 87070; 87075; 87077; 87186; 87205; 87493; 88305; 90686; 93005; 93010; 96361; 96365; 96366; 96367; 96375; 99285; J0360; J1642; J1815; J2020; J2250; J2270; J2405; J2704; J3010; J3370; J3490; J7030; J7060

== ENCOUNTER 2017-01-15 09:47 | Emergency (ER) | payer MEDICARE, MEDICAID ==
--- NOTE | 2017-01-15 10:21 | ER Document Report ---
ED General - General Chief Complaint: Arm Pain Stated Complaint: ARM PAIN Time seen by provider: 10:00 Mode of Arrival: Ambulatory Information source: Patient Notes: 46-year-old male who has a PICC line for IV Zyvox until February 11 status post a patient of left toes for diabetic foot infection and osteomyelitis. Patient says he was told by home health worker yesterday they look like his PICC line might be coming out in his left arm and he needed to go to the emergency department to have it checked they did not have a ride until this morning. No complex pain in his arm. He does complain about one-week history of nonproductive cough. He denies fever, chills, nausea, vomiting, earache, sore throat, chest pain, abdominal pain, or back pain. Physical Exam: General: Alert, appears well. HEENT: Normocephalic. Atraumatic. PERRLA. Extraocular movements intact. Oropharynx clear. Neck: Supple. Non-tender. Respiratory: No respiratory distress. Few rhonchi bilateral breath sounds equal no accessory muscle use Cardiovascular: Regular rate and rhythm. Abdominal: Normal Inspection. Soft, non-tender. No distension. Normal Bowel Sounds. Back: Non-tender. No deformity or step off. Left upper extremity PICC line site appears healthy. PICC line does appear to have been pulled out approximately 10 cm the patient reports he was taken back in place by home health worker. Neurological: Speech clear moves all extremities to command Psychological: Normal affect. Normal Mood. Skin: Warm. Dry. Normal color. TRAVEL OUTSIDE OF THE [place] IN LAST 30 DAYS: No - Related Data Allergies/Adverse Reactions: Penicillins Allergy (Verified 01/15/17 09:52) rash Past Medical History - Social History Smoking Status: Unknown if Ever Smoked Chew tobacco use (# tins/day): No Frequency of alcohol use: None Drug Abuse: None Family History: CAD, DM, Hyperlipidemia, Hypertension Patient has suicidal ideation: No Patient has homicidal ideation: No - Past Medical History Cardiac Medical History: Reports: Hx Coronary Artery Disease, Hx Heart Attack, Hx Hypercholesterolemia, Hx Hypertension, Hx Peripheral Vascular Disease, Hx Pulmonary Embolism Pulmonary Medical History: Reports: Hx COPD, Hx Pneumonia - 1 year ago Neurological Medical History: Reports: Hx Seizures - 4 years ago; Depakote stopped by his physician. Endocrine Medical History: Reports: Hx Diabetes Mellitus Type 1, Hx Diabetes Mellitus Type 2 - IDDM Renal/ Medical History: Reports: Hx Renal Insufficiency - Stage III renal failure. Denies: Hx Peritoneal Dialysis Malignancy Medical History: GI Medical History: Reports: Hx Hepatitis Musculoskeltal Medical History: Reports Hx Arthritis, Reports Hx Musculoskeletal Trauma Skin Medical History: Psychiatric Medical History: Reports: Hx Anxiety, Hx Bipolar Disorder, Hx Depression, Hx Post Traumatic Stress Disorder Traumatic Medical History: Reports: Hx Fractures - Knee pelvis and hand Infectious Medical History: Reports: Hx Hepatitis, Hx HIV - Patient reports no detectable viral count Past Surgical History: Reports: Hx Oral Surgery - Removal of most of teeth, Hx Orthopedic Surgery - right knee replacement, rt toe amputation, Other - Laser eye surgery - Immunizations Immunizations up to date: Yes Hx Diphtheria, Pertussis, Tetanus Vaccination: Yes Hx Pneumococcal Vaccination: 11/09/13 Review of Systems - Review of Systems Constitutional: denies: Chills, Fever EENT: denies: Ear pain, Throat pain Cardiovascular: denies: Chest pain Respiratory: Cough. denies: Short of breath Gastrointestinal: denies: Abdominal pain, Nausea, Vomiting Genitourinary: denies: Burning, Dysuria Musculoskeletal: denies: Back pain Skin: denies: Rash Hematologic/Lymphatic: denies: Swollen glands Neurological/Psychological: denies: Weakness Physical Exam - Vital signs Vitals: Temp Pulse Resp BP Pulse Ox 97.5 F 83 18 113/80 93 01/15/17 09:54 01/15/17 09:54 01/15/17 09:54 01/15/17 09:54 01/15/17 09:54 Course - Re-evaluation Re-evalutation: 01/15/17 12:51 Interventional radiology was consulted and PICC line has been replaced without difficulty. Patient we discharged to continue his usual outpatient care - Vital Signs Vital signs: Temp Pulse Resp BP Pulse Ox 97.5 F 83 18 113/80 93 01/15/17 09:54 01/15/17 09:54 01/15/17 09:54 01/15/17 09:54 01/15/17 09:54 Discharge - Discharge Clinical Impression: S/P PICC central line placement Condition: Stable Disposition: HOME, SELF-CARE Additional Instructions: Osteomyelitis You have been diagnosed as having osteomyelitis -- an infection in the bone. This type of infection is much more serious than simple skin infections and must be treated aggressively. Osteomyelitis usually results from cuts or puncture wounds which allow germs to get into the bone. It can also occur spontaneously from germs in the blood stream. The usual treatment is intravenous antibiotics. With newer antibiotics, this can often be done outside the hospital. Surgery to clean out the infected bone is often necessary. You MUST keep all appointments and get your antibiotics as instructed -- osteomyelitis is a serious problem. You should go to the emergency room or contact your physician if you have a dramatic increase in pain, redness, or swelling, or if you develop shaking chills, fever, or rash. Referrals: ANDREIA LÓPEZ MD [Primary Care Provider] - Follow up as needed
[2017-01-15 13:00] VITALS: BP 118/92
== END 2017-01-15 13:00 | disposition home or self-care (01) ==
LOC: ER 09:47
DX: Z45.2 Encounter for adjustment and management of vascular access device (principal); M79.602 Pain in left arm
CPT/HCPCS: 99284; 71020; 36584; 77001; C1769; J1642

== ENCOUNTER → 2017-01-15 | Outpatient (CLI) | payer MEDICARE, MEDICAID | LOC: OD 14:22 | PROVIDERS: ATTEND Nurse Practitioner Family | DX: E11.621 Type 2 diabetes mellitus with foot ulcer (principal); L97.522 Non-pressure chronic ulcer of other part of left foot with fat layer exposed ==

== ENCOUNTER → 2017-01-15 | Outpatient (CLI) | payer MEDICARE, MEDICAID ==
[2017-01-15 15:27] LABS: ABSOLUTE BASOPHILS # (AUTO) 0.1 10^3/uL (0.0-0.2); ABSOLUTE EOSINOPHILS # (AUTO) 0.1 10^3/uL (0.0-0.6); ABSOLUTE LYMPHOCYTES (AUTO) 1.5 10^3/uL (0.5-4.7); ABSOLUTE MONOCYTES (AUTO) 0.9 10^3/uL (0.1-1.4); ABSOLUTE NEUT (AUTO) 3.2 10^3/uL (1.7-8.2); BASOPHILS % (AUTO) 1.1 % (0-2); EOSINOPHILS % (AUTO) 1.3 % (0-6); HEMATOCRIT 37.4 % (37.9-51.0); HEMOGLOBIN 12.3 g/dL (13.5-17.0); HGB HCT DIFFERENCE -0.5; LYMPHOCYTES % (AUTO) 25.8 % (13-45); MEAN CORPUSCULAR HEMOGLOBIN 27.9 pg (27.0-33.4); MEAN CORPUSCULAR HGB CONC 32.7 g/dL (32.0-36.0); MEAN CORPUSCULAR VOLUME 85 fl (80-97); MONOCYTES % (AUTO) 16.2 % (3-13); RED BLOOD COUNT 4.39 10^6/uL (4.35-5.55); SEGMENTED NEUTROPHILS % (AUTO) 55.6 % (42-78); WHITE BLOOD COUNT 5.8 10^3/uL (4.0-10.5)
[2017-01-15 15:51] LABS: ALANINE AMINOTRANSFERASE 71 U/L (21-72); ALKALINE PHOSPHATASE 110 U/L (38-126); ANION GAP 16 (5-19); ASPARTATE AMINO TRANSFERASE 77 U/L (17-59); BILIRUBIN,TOTAL 0.4 mg/dL (0.2-1.3); BLOOD UREA NITROGEN 35 mg/dL (7-20); CALCIUM 9.1 mg/dL (8.4-10.2); CARBON DIOXIDE 24 mmol/L (22-30); CHLORIDE 94 mmol/L (98-107); GLUCOSE 345 mg/dL (75-110); POTASSIUM 5.3 mmol/L (3.6-5.0); SODIUM 133.6 mmol/L (137-145); TOTAL PROTEIN 8.6 g/dL (6.3-8.2)
[2017-01-15 16:09] LABS: ERYTHROCYTE SEDIMENTATION RATE 99 mm/hr (0-15)
== END ==
LOC: WC 14:08
PROVIDERS: ATTEND Nurse Practitioner Family
DX: E11.621 Type 2 diabetes mellitus with foot ulcer (principal); L97.522 Non-pressure chronic ulcer of other part of left foot with fat layer exposed
CPT/HCPCS: 36415; 80053; 83036; 85025; 85652; 86140

== ENCOUNTER 2017-01-16 16:35 | Inpatient (IN) | payer MEDICARE, MEDICAID ==
--- NOTE | 2017-01-16 17:17 | ER Document Report ---
ED Medical Screen (RME) - General Stated Complaint: BLOOD PRESSURE CONCERNS Notes: States he was sent to ER from wound care today because of low blood pressure. Was given as 92/61. States he had 2 left toes amputated on January 01, and has been running intermittent fevers. Patient is diabetic and states his sugars have been high. States in the 3 to 400s. Sugar was 290 today at Wound Care. Pressure on arrival to emergency room is 102/71. Patient states pain level V out of 5 to left foot. I have greeted and performed a rapid initial assessment of this patient. A comprehensive ED assessment and evaluation of the patient, analysis of test results and completion of the medical decision making process will be conducted by additional ED providers. TRAVEL OUTSIDE OF THE [place] IN LAST 30 DAYS: No - Related Data Allergies/Adverse Reactions: Penicillins Allergy (Verified 01/16/17 17:16) rash Past Medical History - Social History Family history: None - Past Medical History Cardiac Medical History: Reports: Hx Coronary Artery Disease, Hx Heart Attack, Hx Hypercholesterolemia, Hx Hypertension, Hx Peripheral Vascular Disease, Hx Pulmonary Embolism Pulmonary Medical History: Reports: Hx COPD, Hx Pneumonia - 1 year ago Neurological Medical History: Reports: Hx Seizures - 4 years ago; Depakote stopped by his physician. Endocrine Medical History: Reports: Hx Diabetes Mellitus Type 1, Hx Diabetes Mellitus Type 2 - IDDM Renal/ Medical History: Reports: Hx Renal Insufficiency - Stage III renal failure. Denies: Hx Peritoneal Dialysis Malignancy Medical History: GI Medical History: Reports: Hx Hepatitis Musculoskeltal Medical History: Reports Hx Arthritis, Reports Hx Musculoskeletal Trauma Skin Medical History: Psychiatric Medical History: Reports: Hx Anxiety, Hx Bipolar Disorder, Hx Depression, Hx Post Traumatic Stress Disorder Traumatic Medical History: Reports: Hx Fractures - Knee pelvis and hand Infectious Medical History: Reports: Hx Hepatitis, Hx HIV - Patient reports no detectable viral count Past Surgical History: Reports: Hx Oral Surgery - Removal of most of teeth, Hx Orthopedic Surgery - right knee replacement, rt toe amputation, Other - Laser eye surgery - Immunizations Immunizations up to date: Yes Hx Diphtheria, Pertussis, Tetanus Vaccination: Yes Physical Exam - Vital signs Vitals: Temp Pulse Resp BP Pulse Ox 97.9 F 69 16 102/71 98 01/16/17 16:50 01/16/17 16:50 01/16/17 16:50 01/16/17 16:50 01/16/17 16:50 - Cardiovascular Rhythm: Regular Heart sounds: Normal auscultation Course - Vital Signs Vital signs: Temp Pulse Resp BP Pulse Ox 97.9 F 69 16 102/71 98 01/16/17 16:50 01/16/17 16:50 01/16/17 16:50 01/16/17 16:50 01/16/17 16:50
--- NOTE | 2017-01-16 22:43 | ER Document Report ---
ED General - General Chief Complaint: Blood Pressure Problem Stated Complaint: BLOOD PRESSURE CONCERNS Notes: Patient is a 46-year-old male presents with complaints of low blood pressure. Patient has infected right foot. He had toes amputated recently. His discharge from hospital on January 08. He was placed on Zyvox. He has been receiving Zyvox treatment through his PICC line. Last night he started having fevers up to 103. He wants wound care clinic today his blood pressure was 90 systolic and therefore I sent to ER. He does take clonidine, atenolol, and hydrochlorothiazide. He did take these medications this morning. Has not had his evening dosages. Denies any nausea vomiting. Denies any pain around his PICC line. He says he's had some increased pain in his foot that goes up his leg. He does have HIV. He says his viral loads have been nondetectable on his CD4 counts have been good. He says he is compliant with his medications. TRAVEL OUTSIDE OF THE [place] IN LAST 30 DAYS: No - Related Data Allergies/Adverse Reactions: Penicillins Allergy (Verified 01/16/17 17:16) rash Past Medical History - Social History Smoking Status: Former Smoker Chew tobacco use (# tins/day): No Frequency of alcohol use: None Drug Abuse: None Family History: CAD, DM, Hyperlipidemia, Hypertension Patient has suicidal ideation: No Patient has homicidal ideation: No - Past Medical History Cardiac Medical History: Reports: Hx Coronary Artery Disease, Hx Heart Attack, Hx Hypercholesterolemia, Hx Hypertension, Hx Peripheral Vascular Disease, Hx Pulmonary Embolism Pulmonary Medical History: Reports: Hx COPD, Hx Pneumonia - 1 year ago Neurological Medical History: Reports: Hx Seizures - 4 years ago; Depakote stopped by his physician. Endocrine Medical History: Reports: Hx Diabetes Mellitus Type 1, Hx Diabetes Mellitus Type 2 - IDDM Renal/ Medical History: Reports: Hx Renal Insufficiency - Stage III renal failure. Denies: Hx Peritoneal Dialysis Malignancy Medical History: GI Medical History: Reports: Hx Hepatitis Musculoskeltal Medical History: Reports Hx Arthritis, Reports Hx Musculoskeletal Trauma Skin Medical History: Psychiatric Medical History: Reports: Hx Anxiety, Hx Bipolar Disorder, Hx Depression, Hx Post Traumatic Stress Disorder Traumatic Medical History: Reports: Hx Fractures - Knee pelvis and hand Infectious Medical History: Reports: Hx Hepatitis, Hx HIV - Patient reports no detectable viral count Past Surgical History: Reports: Hx Oral Surgery - Removal of most of teeth, Hx Orthopedic Surgery - right knee replacement, rt toe amputation, Other - Laser eye surgery - Immunizations Immunizations up to date: Yes Hx Diphtheria, Pertussis, Tetanus Vaccination: Yes Hx Pneumococcal Vaccination: 11/09/13 Review of Systems - Review of Systems Notes: My Normal Review Basic REVIEW OF SYSTEMS: CONSTITUTIONAL : Fevers EENT: Denies eye, ear, throat, or mouth pain or symptoms. Denies nasal or sinus congestion. CARDIOVASCULAR: Denies chest pain. RESPIRATORY: Denies cough, cold, or chest congestion. Denies shortness of breath, difficulty breathing, or wheezing. GASTROINTESTINAL: Denies abdominal pain. Denies nausea, vomiting, or diarrhea. Denies constipation. Last BM: MUSCULOSKELETAL: Right foot pain SKIN: Denies rash or skin lesions. HEMATOLOGIC : Denies easy bruising or bleeding. NEUROLOGICAL: Denies altered mental status or loss of consciousness. Denies headache. Denies weakness or paralysis or loss of use of either side. Denies problems with gait or speech. Denies sensory or motor loss. ALL OTHER SYSTEMS REVIEWED AND NEGATIVE. Physical Exam - Vital signs Vitals: Temp Pulse Resp BP Pulse Ox 97.9 F 69 16 102/71 98 01/16/17 16:50 01/16/17 16:50 01/16/17 16:50 01/16/17 16:50 01/16/17 16:50 - Notes Notes: General Appearance: Well nourished, alert, cooperative, no acute distress, no obvious discomfort. Vitals: reviewed, See vital signs table. Head: no swelling or tenderness to the head Eyes: PERRL, EOMI, Conjuctiva clear Mouth: No decreasd moisture Neck: Supple, no neck tenderness, No thyromegaly Lungs: No wheezing, No rales, No rhonci, No accessory muscle use, good air exchange bilaterally. Heart: Normal rate, Regular rythm, No murmur, no rub Abdomen: Normal BS, soft, No rigidity, No abdominal tenderness, No guarding, no rebound, no abdominal masses, no organomegaly Extremities: strength 5/5 in all extremities, good pulses in all extremities, swelling to the right foot. Amputation of toes. Some erosion of skin with diabetic wound ulcer and distal foot. No discharge. Skin: warm, dry, appropriate color, no rash Neuro: speech clear, oriented x 3, normal affect, responds appropriately to questions. Course - Vital Signs Vital signs: Temp Pulse Resp BP Pulse Ox 97.7 F 66 16 106/69 93 01/17/17 02:49 01/17/17 02:49 01/17/17 02:49 01/17/17 02:49 01/17/17 02:49 - Laboratory Result Diagrams: 01/17/17 01:10 01/17/17 01:10 Laboratory results interpreted by me: 01/17/17 01/17/17 01/17/17 00:09 01:10 01:10 WBC 3.4 L RBC 4.07 L Hgb 11.4 L Hct 34.1 L RDW 14.1 H Seg Neutrophils % 35.7 L Monocytes % 14.0 H Eosinophils % 6.4 H Absolute Neutrophils 1.2 L Sodium 136.4 L Carbon Dioxide 21 L BUN 45 H Creatinine 3.09 H Est GFR ( Amer) 26 L Est GFR (Non-Af Amer) 22 L Glucose 168 H Total Protein 8.4 H Urine Protein 100 H Urine Glucose (UA) >=500 H - Transfer of Care Notes: 01/17/17 05:51 The hospitalist has been tied up with critically ill patients in ICU and therefore he has understood and bleed been unable to speak with me about this patient for admission. Patient continues to do well. He does have acute renal failure. He is neutropenic. His ANC is just over 1200. We'll [address] him on isolation. His previous reports show that he typically has MRSA infection. I will start him on dose of vancomycin. Patient's serum creatinine is more than double what his baseline is. I suspect this because he says he has been vomiting at all time holding down liquids. He probably has dehydration. This is probably also why he was somewhat hypotensive at wound care clinic. We will continue to monitor the patient until hospitalist is available to admit. 01/17/17 06:31 I did speak with Dr. Caesy who agrees to admit the the patient. Dictation of this chart was performed using voice recognition software; therefore, there may be some unintended grammatical errors. 01/17/17 06:33 Discharge - Discharge Clinical Impression: HIV (human immunodeficiency virus infection), Diabetic infection of left foot Acute renal failure Qualifiers: Acute renal failure type: unspecified Qualified Code(s): N17.9 - Acute kidney failure, unspecified Condition: Stable Disposition: ADMITTED INPATIENT Admitting Provider: Hospitalist Unit Admitted: [facility]
[2017-01-16] MEDS ORDERED: FENTANYL CITRATE INJ/PF 100 MCG/2 ML AMPUL IV ONE (22:52)
[2017-01-17] MEDS ORDERED: NORMAL SALINE 1000 ML 1,000 ML IV ONE (00:13)
[2017-01-17 01:30] LABS: ABSOLUTE BASOPHILS # (AUTO) 0.1 10^3/uL (0.0-0.2); ABSOLUTE EOSINOPHILS # (AUTO) 0.2 10^3/uL (0.0-0.6); ABSOLUTE LYMPHOCYTES (AUTO) 1.4 10^3/uL (0.5-4.7); ABSOLUTE MONOCYTES (AUTO) 0.5 10^3/uL (0.1-1.4); ABSOLUTE NEUT (AUTO) 1.2 10^3/uL (1.7-8.2); EOSINOPHILS % (AUTO) 6.4 % (0-6); HEMATOCRIT 34.1 % (37.9-51.0); HEMOGLOBIN 11.4 g/dL (13.5-17.0); HGB HCT DIFFERENCE 0.1; LYMPHOCYTES % (AUTO) 41.9 % (13-45); MEAN CORPUSCULAR HEMOGLOBIN 27.9 pg (27.0-33.4); MEAN CORPUSCULAR HGB CONC 33.3 g/dL (32.0-36.0); MEAN CORPUSCULAR VOLUME 84 fl (80-97); RED BLOOD COUNT 4.07 10^6/uL (4.35-5.55); RED CELL DISTRIBUTION WIDTH 14.1 % (11.5-14.0); SEGMENTED NEUTROPHILS % (AUTO) 35.7 % (42-78); WHITE BLOOD COUNT 3.4 10^3/uL (4.0-10.5)
[2017-01-17 01:40] LABS: APPEARANCE,URINE SLIGHTLY-CLOUDY; BILIRUBIN,URINE NEGATIVE (NEGATIVE); GLUCOSE, URINE >=500 mg/dL (NEGATIVE); KETONES,URINE NEGATIVE (NEGATIVE); LEUKOCYTE ESTERASE,URINE NEGATIVE (NEGATIVE); NITRITE,URINE NEGATIVE (NEGATIVE); PROTEIN,URINE 100 mg/dL (NEGATIVE); URINE SPECIFIC GRAVITY 1.017; UROBILINOGEN,URINE NEGATIVE mg/dL (<2.0)
[2017-01-17 01:41] LABS: ALANINE AMINOTRANSFERASE 71 U/L (21-72); ALBUMIN 3.9 g/dL (3.5-5.0); ALKALINE PHOSPHATASE 112 U/L (38-126); ANION GAP 15 (5-19); ASPARTATE AMINO TRANSFERASE 57 U/L (17-59); BILIRUBIN,TOTAL 0.4 mg/dL (0.2-1.3); BLOOD UREA NITROGEN 45 mg/dL (7-20); CALCIUM 8.9 mg/dL (8.4-10.2); CARBON DIOXIDE 21 mmol/L (22-30); CHLORIDE 100 mmol/L (98-107); CREATININE RESULT 3.09 mg/dL (0.52-1.25); GLUCOSE 168 mg/dL (75-110); POTASSIUM 4.4 mmol/L (3.6-5.0); SODIUM 136.4 mmol/L (137-145); TOTAL PROTEIN 8.4 g/dL (6.3-8.2)
[2017-01-17] MEDS ORDERED: VANCOMYCIN HCL INJ 1000 MG VIAL IV ONE (03:26)
[2017-01-17] MEDS ORDERED: FENTANYL CITRATE INJ/PF 100 MCG/2 ML AMPUL IV ONE (06:31)
[2017-01-17] MEDS ORDERED: DEXTROSE 40% GEL 15 GM TUBE PO PRN ×2 (07:40)
[2017-01-17] MEDS ORDERED: GLUCAGON,HUMAN RECOMB 1 MG INJ IM PRN (07:40)
[2017-01-17] MEDS ORDERED: DEXTROSE 50%-WATER 25 GM/50 ML DISP.SYRIN IV PRN ×2 (07:40)
[2017-01-17] MEDS ORDERED: AZTREONAM INJ 1 GM VIAL IV SCH (08:15)
[2017-01-17] MEDS ORDERED: VANCOMYCIN HCL 0 MG in DEXTROSE 5%-WATER 250 ML IV NR (08:15)
[2017-01-17] MEDS ORDERED: NORMAL SALINE 1000 ML 1,000 ML IV PRN (08:27)
[2017-01-17] MEDS ORDERED: ACETAMINOPHEN 325 MG TABLET PO PRN (08:28)
[2017-01-17] MEDS ORDERED: PHARMACY COMMUNICATION ORDER MC SCH (08:30)
--- NOTE | 2017-01-17 08:59 | PDOC H&P ---
History of Present Illness Admission Date/PCP: 01/17/17 06:50 [facility] first urgent care Patient complains of: Blood pressure concerns History of Present Illness: MILADYS LONDON III is a 46 year old -[place] male with multiple chronic comorbidities, including HIV disease, history of pulmonary embolus, on Eliquis for same, bipolar disorder, posttraumatic stress disorder, marijuana and cocaine use, COPD, hyperlipidemia, type I diabetes mellitus, and status post recent amputation of 2 toes from his left foot who presents to the emergency room at the urging of the local wound care clinic for evaluation of above complaint. Patient has been discussed with emergency room physician who evaluated the patient. Over the last 2 days, he's noted gradually increasing swelling and pain in his left foot along with fever at home to 103.0. He said nausea with 2 episodes of vomiting. However, he states his nausea has been so pronounced at times, he's had little by mouth intake over the last 2 days or so. There's been no diarrhea or dysuria, chest or abdominal pain. Was seen at the local wound care clinic for the second time on the . Systolic blood pressure was noted to be 90. Was sent to the emergency room for further evaluation. He did admit taking his clonidine, atenolol, and hydrochlorothiazide that morning but no evening dosages. PICC line was actually changed on the , using the same site. Hospitalized on our service the of last through the second of this month with discharge diagnoses including diabetic left foot infection, status post amputation of second and third toes. With a reported history of MRSA, patient was placed on Zyvox, with plans for twice a day infusion until February 11 through PICC line. Patient states he's been following these recommendations. History and physical and discharge summary have been reviewed. Underlying HIV. States his last infectious disease clinic appointment was in October with viral load reportedly undetectable and CD4 count "good." Acceptable blood pressures in the emergency room. Has underlying COPD. Normally does not wheeze. States he has a bit of a chronic cough, but this has been a bit more noticeable lately.. Laboratory results are listed in [employer] and are reviewed. X-ray summary results are listed below, with full report(s) reviewed. . Social history/personal habits: Single. One son. On disability due to multiple health problems. Pack of cigarettes per week. 3 beers a day. Marijuana and cocaine use. Allergies/adverse reactions are listed in [employer] and are reviewed. Patient reportedly is able to tolerate Keflex. Home medications Home medications initially autopopulated into [employer] may not accurately reflect patient's true medications, dosages, and/or frequencies. Compliant with medications. Unfortunately, patient uncertain of medications/dosages/frequencies. Order has been entered for staff to contact family, outpatient physician, and/or pharmacy to more accurately determine medications, dosages, and frequencies and to contact physician when that has been accomplished. REVIEW OF SYSTEMS: Constitutional: See history and present illness. Eyes: No current vision complaints. ENT: No swallowing problems or complaints. No hearing problems or complaints. Pulmonary: No current complaints. Cardiovascular: No current complaints, including chest pain. Gastrointestinal: See history and present illness. Skin: No current complaints, including rashes. Hematologic: No unusual easy bruising or bleeding. Neurologic: No current complaints, including numbness or tingling. Musculoskeletal: See history and present illness. Joint pain from arthritis. Psychiatric: Mild. depression; denies suicidal or homicidal ideation. Endocrine: No current complaints, including polyuria. Genitourinary: No current complaints, including dysuria. PHYSICAL EXAMINATION: 5 feet 9 inches tall. 115.4 kg. BMI 37.6 kg/m.Temperature 98.4. Pulse 65 and regular. Blood pressure 115/77. Respirations are 18 and unlabored. 96% saturation on room air. Somewhat obese but also somewhat stocky otherwise well-developed - [place] male appearing approximately stated age. Appears to feel a bit under the weather, so to speak, along with somewhat fatigued. Otherwise, pleasant awake alert and cooperative. Mildly anxious, without agitation. Skin is warm and dry. No grossly obvious evidence of rash in areas of skin examined. No subcutaneous nodules palpated. PICC line site, left upper extremity grossly unremarkable, with dressing clean dry and intact and left in place. Nontender to palpation. ENT: Hearing grossly normal to normal conversation. Tongue midline on protrusion pink and slightly moist. Eyes: No scleral icterus. Pupils equal and reactive to light at 4 mm. [place] conjunctivae. Neck is supple and nontender to gentle active range of motion and palpation. Midline trachea. No palpable thyroid nodule mass enlargement or tenderness. Lymphatic: No palpable cervical or clavicular nodes. Neck and lymphatic exams limited by patient body habitus. Psychiatric: Fair insight into acute and chronic medical issues. Oriented to time location and why here. Lungs: Auscultation reveals clear and equal breath sounds bilaterally. No use of accessory respiratory muscles. Cardiovascular: Heart regular rate and rhythm, without gallop murmur or rub. No carotid or abdominal aortic bruits. No right ankle or pedal edema; mild on the left, without crepitus fluctuance or expressible discharge. Faintly palpable dorsalis pedis pulses. Abdomen: soft, obese, nontender with positive bowel sounds. Unable to adequately evaluate abdomen for masses or organomegaly due to body habitus. Extremities: Feet are warm and dry. No calf tenderness to compression. No grossly obvious visual evidence of calf swelling. Gentle manipulation of lower extremities fails to reveal any obvious evidence of injury or instability to knees hips or ankles. Examination of the left foot reveals mild diffuse soft tissue swelling, in particular over the dorsum of the foot. No crepitus fluctuance or expressible discharge. Mildly tender to palpation. Slightly warmer than right foot. Open wound at the distal portion of the foot grossly unremarkable in appearance, with good pink granulation tissue present. Neurologic: Moves upper extremities grossly normally. Patellar reflexes absent. Absent Babinski. Light touch decreased at feet, which is a chronic finding according to patient, and without recent change. Dorsiflexion and plantarflexion of feet 5 / 5 and symmetric. Past Medical History Medical History: Other - Additional information in history and present illness, 01/01/2017. Cardiac Medical History: Reports: Coronary Artery Disease, Myocardial Infarction , Hyperlipidema, Hypertension, Peripheral Vascular Disease, Pulmonary Embolism Pulmonary Medical History: Reports: Chronic Obstructive Pulmonary Disease (COPD) , Pneumonia - 1 year ago Neurological Medical History: Reports: Seizures - 4 years ago; Depakote stopped by his physician. Endocrine Medical History: Reports: Diabetes Mellitus Type 1, Diabetes Mellitus Type 2 - IDDM Renal/ Medical History: Malignancy Medical History: GI Medical History: Reports: Hepatitis Musculoskeltal Medical History: Reports: Arthritis Psychiatric Medical History: Reports: Bipolar Disorder, Depression, Post Traumatic Stress Disorder Hematology: Reports: Anemia Infectious Medical History: Reports: HIV - Patient reports no detectable viral count, Methicillin-Resistant Staph Aureus Past Surgical History Past Surgical History: Reports: Orthopedic Surgery - right knee replacement, rt toe amputation; amputation 2 left toes., Other - Laser eye surgery Social History Information Source: Patient, Emergency Med Personnel, ON LICENSE OF [facility] Records Lives with: Other - Roommate Smoking Status: Current Some Day Smoker - One third pack of cigarettes per week Frequency of Alcohol Use: Heavy - 3 beers a day Hx Recreational Drug Use: Yes Drugs: Cocaine, Marijuana Hx Prescription Drug Abuse: No - Advance Directive Resuscitation Status: Full Code Surrogate healthcare decision maker:: No one at present time. Family History Family History: CAD, DM, Hyperlipidemia, Hypertension Parental Family History Reviewed: Yes Children Family History Reviewed: Yes Sibling(s) Family History Reviewed.: Yes Medication/Allergy Home Medications: RX: Aripiprazole [Abilify 20 mg Tablet] 20 mg PO DAILY 01/17/17 RX: Clonidine HCl [Catapres 0.1 mg Tablet] 0.1 mg PO Q12 01/17/17 RX: Emtricitab/Rilpiviri/Tenof Ala [Odefsey Tablet] 1 tab PO DAILY 01/17/17 RX: Hydralazine HCl [Apresoline 50 mg Tablet] 50 mg PO Q8 01/17/17 RX: Lisinopril [Zestril] 5 mg PO QHS 01/17/17 RX: Simvastatin [Zocor 20 mg Tablet] 20 mg PO QHS 01/17/17 Acidoph/L.bulg/Bif.b/S.thermop [Bacid Caplet] 1 tab PO BID #20 tablet 01/23/17 Levofloxacin [Levaquin 750 mg Tablet] 750 mg PO Q2DAYS #5 tablet 01/23/17 RX: Alprazolam [Xanax 0.5 mg Tablet] 1 mg PO Q12 #60 tablet 01/23/17 RX: Clindamycin HCl 300 mg PO TID #30 capsule 01/23/17 RX: Insulin Glargine,Hum.rec.anlog [Lantus Insulin 100 Unit/mL] 50 unit SUBCUT QHS #1 insuln.pen 01/23/17 RX: Mirtazapine [Remeron 15 mg Tablet] 15 mg PO QHS #30 tablet 01/23/17 RX: Oxycodone HCl/Acetaminophen [Percocet 5-325 mg Tablet] 1 tab PO Q4HP PRN # 30 tablet 01/23/17 Allergies/Adverse Reactions: Penicillins Allergy (Verified 01/16/17 17:16) rash Physical Exam Vital Signs: Temp Pulse Resp BP Pulse Ox 98.4 F 65 18 115/77 96 01/17/17 06:38 01/17/17 06:38 01/17/17 06:38 01/17/17 06:38 01/17/17 06:38 Assessment & Plan - Diagnosis (1) Acute renal failure Qualifiers: Acute renal failure type: unspecified Qualified Code(s): N17.9 - Acute kidney failure, unspecified Is this a current diagnosis for this admission?: YesPlan: Likely prerenal in nature. IV fluids. Follow-up chemistry. (2) Diabetic infection of left foot Is this a current diagnosis for this admission?: YesPlan: Surgery consult. Nothing by mouth till seen by surgery. Antibiotics will consist of intravenous vancomycin, aztreonam, and Flagyl. Pharmacy to assist with dosing. Recent wound culture results are reviewed. I have strongly encouraged patient not to get out of bed without notifying staff , to avoid a fall with injury. Knee high SCDs for DVT prophylaxis, right lower extremity only. With patient on Eliquis, no need for Lovenox or heparin at this point in time. Impression and plans were discussed with patient, who concurs. Time spent in evaluation and management of patient: 53 minutes. (3) Wheezing Is this a current diagnosis for this admission?: YesPlan: Chest x-ray. When necessary DuoNeb's. (4) Chronic anticoagulation Is this a current diagnosis for this admission?: YesPlan: Resume home medications as appropriate once these have been reviewed. (5) Coronary artery disease Qualifiers: Coronary Disease-Associated Artery/Lesion type: [place] artery [place] vs. transplanted heart: [place] heart Associated angina: without angina Qualified Code(s): I25.10 - Atherosclerotic heart disease of [place] coronary artery without angina pectoris Is this a current diagnosis for this admission?: YesPlan: Resume home medications as appropriate once these have been reviewed. (6) S/P PICC central line placement Is this a current diagnosis for this admission?: Yes (7) Bipolar disorder Qualifiers: Active/Remission status: remission status unspecified Qualified Code (s): F31.9 - Bipolar disorder, unspecified Is this a current diagnosis for this admission?: YesPlan: Resume home medications as appropriate once these have been reviewed. (8) HIV (human immunodeficiency virus infection) Is this a current diagnosis for this admission?: YesPlan: Resume home medications as appropriate once these have been reviewed. (9) PTSD (post-traumatic stress disorder) Is this a current diagnosis for this admission?: YesPlan: Resume home medications as appropriate once these have been reviewed. - Inpatient Certification Based on my medical assessment, after consideration of the patient's comorbidities, presenting symptoms, or acuity I expect that the services needed warrant INPATIENT care.: Yes I certify that my determination is in accordance with my understanding of Medicare's requirements for reasonable and necessary INPATIENT services [42 CFR 412.3e].: Yes Medical Necessity: Failure to Improve With Outpatient Therapy, Need Close Monitoring Due to Risk of Patient Decompensation, Need for IV Antibiotics, Need for Surgery, Risk of Complication if Not Cared For in Hospital, Risk of Diagnosis Which Will Require Inpatient Eval/Care/Monitoring Post Hospital Care: D/C or Transfer Summary
[2017-01-17] MEDS ORDERED: IPRATROPIUM/ALBUTEROL 0.5-2.5 MG/3 ML AMPUL NEB ONE (09:04)
[2017-01-17 09:21] LABS: ADD ON TESTING BLD IN LAB ACKNOWLEDGE
[2017-01-17 10:09] LABS: PROTHROMBIN TIME 12.5 SEC (11.4-15.4)
[2017-01-17 10:10] LABS: PARTIAL THROMBOPLASTIN TIME 31.6 SEC (23.5-35.8)
[2017-01-17] MEDS: DOCUSATE SODIUM 100 MG CAPSULE PO SCH ×2 (10:49→17:19)
[2017-01-17] MEDS: MORPHINE SULFATE 10 MG/ML INJ IV PRN ×4 (10:49→23:16)
[2017-01-17] MEDS ORDERED: AZTREONAM 2 GM in DEXTROSE 5%-WATER 100 ML IV SCH (13:00)
[2017-01-17] MEDS ORDERED: METOPROLOL TARTRATE PF/INJ 5 MG/5 ML SDV IV PRN (13:34)
[2017-01-17] MEDS ORDERED: CLONIDINE HCL 0.1 MG TABLET PO ONE (14:00)
[2017-01-17] MEDS: HYDRALAZINE HCL 50 MG TABLET PO SCH (15:00)
[2017-01-17] MEDS: METRONIDAZOLE RTU 500 MG/NS 100 ML IV SCH ×2 (15:02→22:00)
--- NOTE | 2017-01-17 16:58 | CONSULTATION REPORT E ---
Consultation Report NAME: MILADYS LONDON : 1970 AGE: 46Y DATE: 01/17/2017 313 A TO: PAULO SHRESTHA M.D. FROM: NIKKI RODRIGUEZ M.D. Requesting Physician REASON FOR CONSULTATION: Consultation from the hospitalist for evaluation and management of left foot infection/cellulitis. HISTORY OF PRESENT ILLNESS: The patient is a known diabetic with HIV. He has a diabetic foot with the left third toe amputated in the past. He started having pain, some pain in the left foot and also some fevers. After having the fevers, he was sent to the emergency room and admitted to the hospital. Complains of very minimal pain in the left foot, otherwise no other problems. PAST MEDICAL HISTORY: Significant for: 1. Obesity. 2. HIV. 3. Diabetes mellitus. He has not been on medical therapy for that. PAST SURGICAL HISTORY: He had a history of left foot great toe amputation and third toe in the past. REVIEW OF OTHER SYSTEMS: As per examination. PHYSICAL EXAMINATION: GENERAL: He is awake, alert, oriented. VITAL SIGNS: Currently afebrile. HEAD AND NECK: No lymphadenopathy. No masses. RESPIRATORY: Both sides are clear to auscultation. CARDIOVASCULAR: Heart sounds are regular. No murmurs. ABDOMEN: Soft, nontender. No hepatomegaly. No splenomegaly. EXTREMITIES: Warm, well perfused. On the left foot, the toe amputation wound appears to be clean, intact, but there is some edema around that area. So there is no obvious necrosis of the skin level. IMPRESSION OVERALL: 1. Diabetes mellitus. 2. History of fever. 3. Left foot possible infection/possible cellulitis. PLAN: It is soft tissue necrosis . This foot obviously seems to be a healthy wound outside, but it is more than likely he may have some soft tissue necrosis and maybe involvement at the tendinous level. Plan is for examination under anesthesia tomorrow along with incisional drainage and debridements. The same thing is explained to the patient, and also explained to the patient about he may end up losing more toes with transmetatarsal amputation, and the risk of losing the foot is very high. All of this is explained to the patient. In the meantime continue IV antibiotic therapy. DICTATING PHYSICIAN: PAULO SHRESTHA M.D. [id number] PHY#: [id number] ID: [id number] JOB#: [id number] ACCT: [id number] cc:PAULO SHRESTHA M.D. > [facility]
[2017-01-17] MEDS: OXYCODONE-ACETAMINOPHEN 5-325 MG TABLET PO PRN (18:29)
[2017-01-17] MEDS ORDERED: NORMAL SALINE 10 ML SDV (AFTER EACH USE) IV PRN (19:15)
[2017-01-17] MEDS ORDERED: INSULIN GLARGINE,HUM.REC.ANLOG 1,000 UNIT/10 ML UNIT SUBCUT SCH (22:00)
[2017-01-17] MEDS: INSULIN LISPRO 100 UNIT/ML 3 ML VIAL SUBCUT PRN (22:02)
[2017-01-17] MEDS: NORMAL SALINE 10 ML SDV (SCHEDULED) IV SCH (22:03)
[2017-01-17] MEDS: LISINOPRIL 5 MG TABLET PO SCH (22:33)
[2017-01-18] MEDS: CLONIDINE HCL 0.1 MG TABLET PO SCH ×3 (00:04→21:40)
[2017-01-18] MEDS: HYDRALAZINE HCL 50 MG TABLET PO SCH ×4 (01:01→22:37)
[2017-01-18] MEDS ORDERED: AZTREONAM INJ 1 GM VIAL ONE (03:14)
[2017-01-18 04:53] LABS: ABSOLUTE EOSINOPHILS # (AUTO) 0.3 10^3/uL (0.0-0.6); ABSOLUTE LYMPHOCYTES (AUTO) 1.4 10^3/uL (0.5-4.7); ABSOLUTE MONOCYTES (AUTO) 0.5 10^3/uL (0.1-1.4); ABSOLUTE NEUT (AUTO) 0.6 10^3/uL (1.7-8.2); BASOPHILS % (AUTO) 1.4 % (0-2); EOSINOPHILS % (AUTO) 11.6 % (0-6); HEMATOCRIT 31.3 % (37.9-51.0); HEMOGLOBIN 10.4 g/dL (13.5-17.0); HGB HCT DIFFERENCE -0.1; LYMPHOCYTES % (AUTO) 49.9 % (13-45); MEAN CORPUSCULAR HEMOGLOBIN 27.9 pg (27.0-33.4); MEAN CORPUSCULAR HGB CONC 33.2 g/dL (32.0-36.0); MEAN CORPUSCULAR VOLUME 84 fl (80-97); MONOCYTES % (AUTO) 15.9 % (3-13); RED BLOOD COUNT 3.73 10^6/uL (4.35-5.55); RED CELL DISTRIBUTION WIDTH 14.2 % (11.5-14.0); SEGMENTED NEUTROPHILS % (AUTO) 21.2 % (42-78); WHITE BLOOD COUNT 2.8 10^3/uL (4.0-10.5)
[2017-01-18 05:12] LABS: ANION GAP 12 (5-19); BLOOD UREA NITROGEN 35 mg/dL (7-20); CALCIUM 8.5 mg/dL (8.4-10.2); CARBON DIOXIDE 23 mmol/L (22-30); CHLORIDE 104 mmol/L (98-107); CREATININE RESULT 1.68 mg/dL (0.52-1.25); GLUCOSE 133 mg/dL (75-110); POTASSIUM 4.3 mmol/L (3.6-5.0); SODIUM 138.5 mmol/L (137-145)
[2017-01-18] MEDS: METRONIDAZOLE RTU 500 MG/NS 100 ML IV SCH ×3 (05:35→21:41)
[2017-01-18] MEDS ORDERED: VANCOMYCIN HCL INJ 1000 MG VIAL ONE (06:59)
[2017-01-18] MEDS ORDERED: VANCOMYCIN HCL INJ 500 MG VIAL ONE (07:00)
[2017-01-18] MEDS: VANCOMYCIN HCL 1,500 MG in DEXTROSE 5%-WATER 250 ML IV SCH (07:00)
[2017-01-18] MEDS: MORPHINE SULFATE 10 MG/ML INJ IV PRN ×3 (07:33→19:30)
[2017-01-18] MEDS: IPRATROPIUM/ALBUTEROL 0.5-2.5 MG/3 ML AMPUL NEB PRN (07:50)
[2017-01-18] MEDS ORDERED: ARIPIPRAZOLE 20 MG PO SCH (10:00)
[2017-01-18] MEDS: ARIPIPRAZOLE 5 MG TABLET PO SCH (10:28)
[2017-01-18] MEDS: AZTREONAM 2 GM in DEXTROSE 5%-WATER 100 ML IV SCH ×2 (10:29→17:18)
[2017-01-18] MEDS: DOCUSATE SODIUM 100 MG CAPSULE PO SCH ×2 (10:31→17:17)
[2017-01-18] MEDS: NORMAL SALINE 10 ML SDV (SCHEDULED) IV SCH ×2 (10:31→21:43)
[2017-01-18] MEDS ORDERED: BUPIVACAINE HCL 0.25 % INJ/PF (2.5 MG/1 ML) 30 ML VIAL ONE (10:32)
[2017-01-18] MEDS ORDERED: BUPIVACAINE HCL 0.5%-EPI 1:200000 INJ/PF 30 ML VIAL ONE (10:32)
[2017-01-18] MEDS ORDERED: FENTANYL CITRATE INJ/PF 100 MCG/2 ML AMPUL ONE (11:07)
[2017-01-18] MEDS ORDERED: PROPOFOL INJ 200 MG/20 ML VIAL IV ONE (11:08)
[2017-01-18] MEDS ORDERED: MIDAZOLAM 2 MG/2 ML INJ ONE (11:08)
[2017-01-18] MEDS ORDERED: FENTANYL CITRATE INJ/PF 100 MCG/2 ML AMPUL IV PRN ×3 (11:12)
--- NOTE | 2017-01-18 12:22 | PDOC PROGRESS REPORT ---
Subjective Progress Note for:: 01/18/17 Subjective:: Reason for visit: Follow-up foot infection Hospital course: Per H&P "MILADYS LONDON III is a 46 year old -L[place] male with multiple chronic comorbidities, including HIV disease, history of pulmonary embolus, on Eliquis for same, bipolar disorder, posttraumatic stress disorder, marijuana and cocaine use, COPD, hyperlipidemia, type I diabetes mellitus, and status post recent amputation of 2 toes from his left foot who presents to the emergency room at the urging of the local wound care clinic for evaluation of above complaint. Patient has been discussed with emergency room physician who evaluated the patient. Hospitalized on our service the of last month for the second of this month with discharge diagnoses including diabetic left foot infection, status post amputation of second and third toes. With a reported history of MRSA, patient was placed on Zyvox, with plans for twice a day infusion until February 11 through PICC line. Patient states he's been following these recommendations. History and physical and discharge summary have been reviewed. Over the last 2 days, he's noted gradually increasing swelling and pain in his left foot along with fever at home to 103.0. He said nausea with 2 episodes of vomiting. However, he states his nausea is been so pronounced at times, he's had little by mouth intake over the last 2 days or so. There's been no diarrhea or dysuria, chest or abdominal pain. Was seen at the local wound care clinic for the second time on the . Systolic blood pressure was noted to be 90. Was sent to the emergency room for further evaluation. He did admit taking his clonidine, atenolol, and hydrochlorothiazide that morning but no evening dosages. PICC line was actually changed on the , using the same site." Subjective: Still complaining of pain in the foot described as sharp, stabbing radiating up into his leg without other associated symptoms, worsened with palpation, improved with rest and pain medications. Otherwise he denies chest pain, palpitations, shortness of breath, cough, phlegm, fever, chills, nausea, vomiting, diarrhea. ROS: per HPI plus a total of 10 systems reviewed, pertinent positives and negatives noted above, remaining systems negative. Physical Exam Vital Signs: Temp Pulse Resp BP Pulse Ox 97.4 F 79 16 121/78 98 01/18/17 07:12 01/18/17 07:50 01/18/17 07:50 01/18/17 07:12 01/18/17 07:50 Intake & Output 01/17/17 01/18/17 01/19/17 05:59 06:59 06:59 Intake Total Output Total Balance Weight PHYSICAL EXAM GENERAL: NAD; well developed, well nourished; mild obese; alert and oriented to person, place, time, situation HEENT: normocephalic, atraumatic; EOMI, PERRLA, no conjunctival injection, no scleral icterus; oral mucosa moist, RESPIRATORY: no accessory muscle use, no increased WOB, good air entry bilaterally; no wheezes, CARDIO: no JVD; no tachycardia VASCULAR: no pallor; decreased capillary refill GI: soft; nondistended; normal bowel sounds; nontender NEURO: decreased sensation below the knees; no dysarthria; no nystagmus; tongue protrudes midline MSK: 5/5 strength; normal ROM hips; EXTREMITIES: no calf tender; no palpable cords in calf; no clubbing, cyanosis , pedal edema; missing digits from both feet; bilat acrocyanotic changes - chronic PSYCH: normal affect, normal mood SKIN: warm; dry; no petechiae; no telengectasias; no jaundice; left foot at former surgical site is raw but dry and gangrenous appearing with surrounding edema, erythema and warmth with intense pain on palpation Results Laboratory Results: 01/18/17 04:15 01/18/17 04:15 01/18/17 01/18/17 04:15 04:15 WBC 2.8 L RBC 3.73 L Hgb 10.4 L Hct 31.3 L MCV 84 MCH 27.9 MCHC 33.2 RDW 14.2 H Plt Count 167 Seg Neutrophils % 21.2 L Lymphocytes % 49.9 H Monocytes % 15.9 H Eosinophils % 11.6 H Basophils % 1.4 Absolute Neutrophils 0.6 L Absolute Lymphocytes 1.4 Absolute Monocytes 0.5 Absolute Eosinophils 0.3 Absolute Basophils 0.0 Sodium 138.5 Potassium 4.3 Chloride 104 Carbon Dioxide 23 Anion Gap 12 BUN 35 H Creatinine 1.68 H Est GFR ( Amer) 53 L Est GFR (Non-Af Amer) 44 L Glucose 133 H Calcium 8.5 Impressions: Chest X-Ray 01/17/17 00:00 IMPRESSION: IMPROVED POSITION OF THE PICC LINE. NO ACUTE RADIOGRAPHIC FINDING IN THE CHEST. Foot X-Ray 01/17/17 00:00 IMPRESSION: NO CHANGE SINCE 01/15/2017. Assessment & Plan - Diagnosis (1) Diabetic infection of left foot Is this a current diagnosis for this admission?: YesPlan: plan for OR today per general surgery. continue IV abx (2) Wheezing Is this a current diagnosis for this admission?: YesPlan: resolved. cxr clear (4) Peripheral vascular disease Is this a current diagnosis for this admission?: YesPlan: accounting for and complicating his recovery. (5) S/P PICC central line placement Is this a current diagnosis for this admission?: Yes (6) Bipolar disorder Qualifiers: Active/Remission status: remission status unspecified Qualified Code (s): F31.9 - Bipolar disorder, unspecified Is this a current diagnosis for this admission?: Yes - Time Time Spent with patient: 15-24 minutes
[2017-01-18] MEDS: FENTANYL CITRATE INJ/PF 100 MCG/2 ML AMPUL ONE ×2 (12:30→12:44)
--- NOTE | 2017-01-18 13:23 | OPERATIVE REPORT E ---
Operative Report NAME: MILADYS LONDON : 1970 AGE: 46Y DATE OF SURGERY: 01/18/2017 ROOM: 313 PREOPERATIVE DIAGNOSES: 1. Diabetes mellitus. 2. HIV. 3. Left foot previous history of amputation on the second toe. Now, the patient has a fever. Possible abscess. Possible osteomyelitis of the metatarsal head. POSTOPERATIVE DIAGNOSES: 1. Necrotic soft tissue infection of the left foot. 2. Possible osteomyelitis of the left second metatarsal head. OPERATIONS: 1. Incision and drainage and debridement of necrotic tissue of the left foot. 2. Excision of the metatarsal bone/transmetatarsal amputation of the second toe, remaining tissue on the second toe metatarsal head excision. SURGEON: PAULO SHRESTHA M.D. ANESTHESIA: Monitored anesthesia care. BLOOD LOSS: 5 mL. TISSUE REMOVED OR ALTERED: Metatarsal head and soft tissue sent for cultures. HISTORY AND INDICATIONS: As described. PROCEDURE: Patient was placed in the supine position. The left foot was cleaned and draped with sterile field, and then an incision was made both dorsally and on the plantar aspect to expose the soft tissue and also the metatarsal bone of the second toe. Then metatarsal head was exposed. A lot of it was brittle, suggestive of osteomyelitis. All the metatarsal head up to the mid part of the metatarsal bone was excised completely. Surrounding necrotic-looking soft tissue was completely excised with sharp dissection until all the surrounding tissue was absolutely healthier. No more pus pockets, and the plantar fasciotomy was widely done. Still hopeful that the foot can be salvaged. Then, after irrigation, complete hemostasis was secured. Dressings were applied. Patient recovered without any problems, taken to recovery room in stable condition. DICTATING PHYSICIAN: PAULO SHRESTHA M.D. [id number] PHY#: [id number] ID: [id number] JOB#: [id number] ACCT: [id number] cc:PAULO SHRESTHA M.D. >
[2017-01-18] MEDS: INSULIN LISPRO 100 UNIT/ML 3 ML VIAL SUBCUT PRN (16:04)
[2017-01-18] MEDS: LISINOPRIL 5 MG TABLET PO SCH (21:39)
[2017-01-18] MEDS: INSULIN GLARGINE,HUM.REC.ANLOG 300 UNIT/3 ML INSULN.PEN SUBCUT SCH (21:43)
[2017-01-19] MEDS: AZTREONAM 2 GM in DEXTROSE 5%-WATER 100 ML IV SCH ×2 (02:41→09:27)
[2017-01-19] MEDS: MORPHINE SULFATE 10 MG/ML INJ IV PRN ×4 (02:47→20:27)
[2017-01-19] MEDS: VANCOMYCIN HCL 1,500 MG in DEXTROSE 5%-WATER 250 ML IV SCH (05:04)
[2017-01-19] MEDS: HYDRALAZINE HCL 50 MG TABLET PO SCH ×3 (05:05→21:11)
[2017-01-19] MEDS: METRONIDAZOLE RTU 500 MG/NS 100 ML IV SCH (05:05)
[2017-01-19] MEDS: ARIPIPRAZOLE 5 MG TABLET PO SCH (09:22)
[2017-01-19] MEDS: CLONIDINE HCL 0.1 MG TABLET PO SCH ×2 (09:23→21:10)
[2017-01-19] MEDS: DOCUSATE SODIUM 100 MG CAPSULE PO SCH ×2 (09:24→17:42)
[2017-01-19] MEDS: NORMAL SALINE 10 ML SDV (SCHEDULED) IV SCH ×2 (09:25→21:11)
[2017-01-19] MEDS: OXYCODONE-ACETAMINOPHEN 5-325 MG TABLET PO PRN (09:25)
--- NOTE | 2017-01-19 11:16 | PDOC PROGRESS REPORT ---
Subjective Progress Note for:: 01/19/17 Subjective:: Patient has minimal complaints. Physical Exam Vital Signs: Temp Pulse Resp BP Pulse Ox 97.7 F 73 18 119/77 98 01/19/17 07:04 01/19/17 07:04 01/19/17 07:04 01/19/17 07:04 01/19/17 07:04 Intake & Output 01/18/17 01/19/17 01/20/17 06:59 06:59 06:59 Intake Total 3022 Output Total 985 Balance 2036 Weight 109.6 kg General appearance: PRESENT: no acute distress Musculoskeletal exam: PRESENT: other - Left foot examined. Dressing removed. The foot is warm. There is a bounding left dorsalis pedis pulse. Toes 1, 4, and 5 are all viable. There is a large open wound on the dorsal surface of the foot. It is clean with some cauterized tissue. There is no foul smell, pus or anything to debris. The foot is washed with soap and water, and dressing reapplied. Results Laboratory Results: 01/18/17 04:15 01/18/17 04:15 Impressions: Chest X-Ray 01/17/17 00:00 IMPRESSION: IMPROVED POSITION OF THE PICC LINE. NO ACUTE RADIOGRAPHIC FINDING IN THE CHEST. Foot X-Ray 01/17/17 00:00 IMPRESSION: NO CHANGE SINCE 01/15/2017. Assessment & Plan - Diagnosis (1) Diabetic infection of left foot Is this a current diagnosis for this admission?: YesPlan: 1. Patient is one day status post completion debridement all left metatarsal head now with a reasonably clean, open on the dorsum of his mid left foot. There is nothing to debride today. Microbes are gram-positive cocci and gram- negative rods, identification pending. 2. With a bounding pulse, he should have adequate blood flow to this foot. I recommended wound VAC and so that is been ordered. We'll wait cultures and then determine ongoing antimicrobial therapeutic plan. - Time Time Spent with patient: 15-24 minutes
--- NOTE | 2017-01-19 13:14 | PDOC PROGRESS REPORT ---
Subjective Progress Note for:: 01/19/17 Subjective:: Reason for visit: Follow-up foot infection Hospital course: Per H&P "MILADYS LONDON III is a 46 year old -[place] male with multiple chronic comorbidities, including HIV disease, history of pulmonary embolus, on Eliquis for same, bipolar disorder, posttraumatic stress disorder, marijuana and cocaine use, COPD, hyperlipidemia, type I diabetes mellitus, and status post recent amputation of 2 toes from his left foot who presents to the emergency room at the urging of the local wound care clinic for evaluation of above complaint. Patient has been discussed with emergency room physician who evaluated the patient. Hospitalized on our service the of last month for the second of this month with discharge diagnoses including diabetic left foot infection, status post amputation of second and third toes. With a reported history of MRSA, patient was placed on Zyvox, with plans for twice a day infusion until February 11 through PICC line. Patient states he's been following these recommendations. History and physical and discharge summary have been reviewed. Over the last 2 days, he's noted gradually increasing swelling and pain in his left foot along with fever at home to 103.0. He said nausea with 2 episodes of vomiting. However, he states his nausea is been so pronounced at times, he's had little by mouth intake over the last 2 days or so. There's been no diarrhea or dysuria, chest or abdominal pain. Was seen at the local wound care clinic for the second time on the . Systolic blood pressure was noted to be 90. Was sent to the emergency room for further evaluation. He did admit taking his clonidine, atenolol, and hydrochlorothiazide that morning but no evening dosages. PICC line was actually changed on the , using the same site." He is status post excision of osteomyelitic bone and necrotic tissue on 2016, tissue culture still pending. Initial results showed gram-positive cocci and gram-negative rods. Review of his microbiology history indicates most recent gram-negative yong is an Escherichia coli resistant to penicillin in 2016. The gram-positive cocci is presumptive MRSA given his recent microbiology. Subjective: Still complaining of pain in the foot described as sharp, stabbing radiating up into his leg without other associated symptoms, worsened with palpation, improved with rest and pain medications. Otherwise he denies chest pain, palpitations, shortness of breath, cough, phlegm, fever, chills, nausea, vomiting, diarrhea. ROS: per HPI plus a total of 10 systems reviewed, pertinent positives and negatives noted above, remaining systems negative. Physical Exam Vital Signs: Temp Pulse Resp BP Pulse Ox 97.7 F 73 18 119/77 98 01/19/17 07:04 01/19/17 07:04 01/19/17 07:04 01/19/17 07:04 01/19/17 07:04 Intake & Output 01/18/17 01/19/17 01/20/17 06:59 06:59 06:59 Intake Total 3022 Output Total 985 Balance 2036 Weight 109.6 kg PHYSICAL EXAM GENERAL: NAD; well developed, well nourished; mild obese; alert and oriented to person, place, time, situation HEENT: normocephalic, atraumatic; no conjunctival injection, no scleral icterus; oral mucosa moist, RESPIRATORY: no accessory muscle use, no increased WOB, good air entry bilaterally; no wheezes, CARDIO: no JVD; no tachycardia VASCULAR: no pallor; decreased capillary refill GI: soft; nondistended; normal bowel sounds; nontender NEURO: decreased sensation below the knees; no dysarthria; no nystagmus; tongue protrudes midline MSK: 5/5 strength; normal ROM hips; EXTREMITIES: no calf tender; no palpable cords in calf; no clubbing, cyanosis , pedal edema; missing digits from both feet; bilat acrocyanotic changes - chronic PSYCH: normal affect, normal mood SKIN: warm; dry; no petechiae; no telengectasias; no jaundice; left foot heavily bandaged Assessment & Plan - Diagnosis (1) Diabetic infection of left foot Is this a current diagnosis for this admission?: YesPlan: Status post I&D. continue IV abx with vancomycin but change the aztreonam to Rocephin based on previous culture results. Case discussed with general surgery, no indication for further debridement needed today. We'll need another day or 2 monitoring in-house before discharge. (2) Wheezing Is this a current diagnosis for this admission?: YesPlan: resolved. cxr clear (4) Peripheral vascular disease Is this a current diagnosis for this admission?: Yes (5) S/P PICC central line placement Is this a current diagnosis for this admission?: Yes (6) Bipolar disorder Qualifiers: Active/Remission status: remission status unspecified Qualified Code (s): F31.9 - Bipolar disorder, unspecified Is this a current diagnosis for this admission?: Yes - Time Time Spent with patient: 15-24 minutes Anticipated discharge: Home with [facility]
[2017-01-19] MEDS: VANCOMYCIN HCL 1,000 MG in DEXTROSE 5%-WATER 250 ML IV SCH (17:42)
[2017-01-19] MEDS: LISINOPRIL 5 MG TABLET PO SCH (21:11)
[2017-01-19] MEDS: INSULIN GLARGINE,HUM.REC.ANLOG 300 UNIT/3 ML INSULN.PEN SUBCUT SCH (21:18)
[2017-01-20] MEDS: MORPHINE SULFATE 10 MG/ML INJ IV PRN ×5 (02:31→20:38)
[2017-01-20 04:49] LABS: ABSOLUTE BASOPHILS # (AUTO) 0.1 10^3/uL (0.0-0.2); ABSOLUTE EOSINOPHILS # (AUTO) 0.2 10^3/uL (0.0-0.6); ABSOLUTE LYMPHOCYTES (AUTO) 1.5 10^3/uL (0.5-4.7); ABSOLUTE MONOCYTES (AUTO) 0.6 10^3/uL (0.1-1.4); ABSOLUTE NEUT (AUTO) 1.2 10^3/uL (1.7-8.2); BASOPHILS % (AUTO) 1.4 % (0-2); EOSINOPHILS % (AUTO) 6.4 % (0-6); HEMATOCRIT 31.2 % (37.9-51.0); HEMOGLOBIN 10.2 g/dL (13.5-17.0); HGB HCT DIFFERENCE -0.6; LYMPHOCYTES % (AUTO) 41.2 % (13-45); MEAN CORPUSCULAR HEMOGLOBIN 27.5 pg (27.0-33.4); MEAN CORPUSCULAR HGB CONC 32.7 g/dL (32.0-36.0); MEAN CORPUSCULAR VOLUME 84 fl (80-97); MONOCYTES % (AUTO) 17.7 % (3-13); RED BLOOD COUNT 3.71 10^6/uL (4.35-5.55); RED CELL DISTRIBUTION WIDTH 14.5 % (11.5-14.0); SEGMENTED NEUTROPHILS % (AUTO) 33.3 % (42-78); WHITE BLOOD COUNT 3.5 10^3/uL (4.0-10.5)
[2017-01-20 04:54] LABS: ANION GAP 8 (5-19); BLOOD UREA NITROGEN 17 mg/dL (7-20); CALCIUM 9.2 mg/dL (8.4-10.2); CARBON DIOXIDE 25 mmol/L (22-30); CHLORIDE 107 mmol/L (98-107); CREATININE RESULT 1.06 mg/dL (0.52-1.25); GLUCOSE 132 mg/dL (75-110); POTASSIUM 4.8 mmol/L (3.6-5.0); SODIUM 139.9 mmol/L (137-145)
[2017-01-20] MEDS: VANCOMYCIN HCL 1,000 MG in DEXTROSE 5%-WATER 250 ML IV SCH ×2 (05:09→18:38)
[2017-01-20] MEDS: HYDRALAZINE HCL 50 MG TABLET PO SCH ×3 (05:09→22:10)
[2017-01-20] MEDS ORDERED: CEFTRIAXONE 1 GM/D5W RTU 50 ML IV SCH (10:00)
[2017-01-20] MEDS: ARIPIPRAZOLE 5 MG TABLET PO SCH (10:39)
[2017-01-20] MEDS: CLONIDINE HCL 0.1 MG TABLET PO SCH ×2 (10:40→22:09)
[2017-01-20] MEDS: DOCUSATE SODIUM 100 MG CAPSULE PO SCH ×2 (10:40→17:09)
[2017-01-20] MEDS: NORMAL SALINE 10 ML SDV (SCHEDULED) IV SCH ×2 (10:42→22:16)
--- NOTE | 2017-01-20 12:55 | PDOC PROGRESS REPORT ---
Subjective Progress Note for:: 01/20/17 Subjective:: Patient is complaining of pain and is also complaining of wheezing ; he has no fever no chills Is concerned about the order for ceftriaxone because of his allergies to penicillin He has no nausea no vomiting no abdominal pain Physical Exam Vital Signs: Temp Pulse Resp BP Pulse Ox 97.6 F 72 13 149/101 H 96 01/20/17 07:42 01/20/17 07:42 01/20/17 07:42 01/20/17 07:42 01/20/17 07:42 Intake & Output 01/19/17 01/20/17 01/21/17 00:59 00:59 00:59 Intake Total 222 1372 300 Output Total 275 2600 650 Balance -53 -1228 -350 Weight 109.6 kg 110.3 kg General appearance: PRESENT: no acute distress Head exam: PRESENT: atraumatic, normocephalic Eye exam: PRESENT: conjunctiva pink, EOMI, PERRLA. ABSENT: scleral icterus Ear exam: PRESENT: normal external ear exam Mouth exam: PRESENT: moist, tongue midline Neck exam: ABSENT: carotid bruit, JVD, lymphadenopathy, thyromegaly Respiratory exam: PRESENT: wheezes - Bilaterally. ABSENT: rales, rhonchi Cardiovascular exam: PRESENT: RRR. ABSENT: diastolic murmur, rubs, systolic murmur Pulses: PRESENT: normal dorsalis pedis pul Vascular exam: PRESENT: normal capillary refill GI/Abdominal exam: PRESENT: normal bowel sounds, soft. ABSENT: distended, guarding, mass, organolmegaly, rebound, tenderness Rectal exam: PRESENT: deferred Extremities exam: PRESENT: full ROM, other - Left lower extremity Foot appears clean no redness no swelling IVac in place. ABSENT: calf tenderness, clubbing, pedal edema Neurological exam: PRESENT: alert, awake, oriented to person, oriented to place , oriented to time, oriented to situation, CN II-XII grossly intact. ABSENT: motor sensory deficit Psychiatric exam: PRESENT: appropriate affect, normal mood. ABSENT: homicidal ideation, suicidal ideation Skin exam: PRESENT: dry, intact, warm. ABSENT: cyanosis, rash Results Laboratory Results: 01/20/17 04:07 01/20/17 04:07 01/20/17 01/20/17 04:07 04:07 WBC 3.5 L RBC 3.71 L Hgb 10.2 L Hct 31.2 L MCV 84 MCH 27.5 MCHC 32.7 RDW 14.5 H Plt Count 156 Seg Neutrophils % 33.3 L Lymphocytes % 41.2 Monocytes % 17.7 H Eosinophils % 6.4 H Basophils % 1.4 Absolute Neutrophils 1.2 L Absolute Lymphocytes 1.5 Absolute Monocytes 0.6 Absolute Eosinophils 0.2 Absolute Basophils 0.1 Sodium 139.9 Potassium 4.8 Chloride 107 Carbon Dioxide 25 Anion Gap 8 BUN 17 Creatinine 1.06 Est GFR ( Amer) > 60 Est GFR (Non-Af Amer) > 60 Glucose 132 H Calcium 9.2 01/19/17 09:28 Nasophary (Mrsa Only) MRSA Surveillance Culture - Final NO MRSA RECOVERED Impressions: Chest X-Ray 01/17/17 00:00 IMPRESSION: IMPROVED POSITION OF THE PICC LINE. NO ACUTE RADIOGRAPHIC FINDING IN THE CHEST. Foot X-Ray 01/17/17 00:00 IMPRESSION: NO CHANGE SINCE 01/15/2017. Assessment & Plan - Diagnosis (1) Diabetic infection of left foot Is this a current diagnosis for this admission?: YesPlan: We'll discontinue ceftriaxone and replace it with clindamycin and Levaquin Continue the present management (2) Peripheral vascular disease Is this a current diagnosis for this admission?: Yes (3) Wheezing Is this a current diagnosis for this admission?: YesPlan: We will treat the patient with nebs Noted that patient has 3 kg more than when he came in He may be somewhat fluid overloaded We will treat him also with 20 mg IV Lasix (4) Bipolar disorder Qualifiers: Active/Remission status: remission status unspecified Qualified Code (s): F31.9 - Bipolar disorder, unspecified Is this a current diagnosis for this admission?: YesPlan: continue his present medications - Time Time Spent with patient: 25-34 minutes
[2017-01-20] MEDS: CLINDAMYCIN 600 MG/D5W RTU 50 ML IV SCH ×2 (13:26→22:02)
[2017-01-20] MEDS ORDERED: FUROSEMIDE INJ/PF 20 MG/2 ML SDV IV ONE (14:00)
[2017-01-20] MEDS: LEVOFLOXACIN 750 MG/D5W RTU 750 MG/150 ML RTUPB IV SCH (17:07)
[2017-01-20] MEDS: INSULIN GLARGINE,HUM.REC.ANLOG 300 UNIT/3 ML INSULN.PEN SUBCUT SCH (22:08)
[2017-01-20] MEDS: ALPRAZOLAM 0.5 MG TABLET PO SCH (22:09)
[2017-01-20] MEDS: LISINOPRIL 5 MG TABLET PO SCH (22:09)
[2017-01-20] MEDS: SIMVASTATIN 10 MG TABLET PO SCH (22:10)
[2017-01-20] MEDS: OXYCODONE-ACETAMINOPHEN 5-325 MG TABLET PO PRN (22:10)
[2017-01-21] MEDS: MORPHINE SULFATE 10 MG/ML INJ IV PRN ×2 (00:27→04:44)
[2017-01-21] MEDS: CLINDAMYCIN 600 MG/D5W RTU 50 ML IV SCH ×3 (05:13→21:23)
[2017-01-21] MEDS: VANCOMYCIN HCL 1,000 MG in DEXTROSE 5%-WATER 250 ML IV SCH (06:09)
[2017-01-21] MEDS: HYDRALAZINE HCL 50 MG TABLET PO SCH ×2 (06:16→14:32)
[2017-01-21 06:52] LABS: CREATININE RESULT 2.12 mg/dL (0.52-1.25)
[2017-01-21] MEDS: DOCUSATE SODIUM 100 MG CAPSULE PO SCH ×2 (10:12→16:57)
[2017-01-21] MEDS: ALPRAZOLAM 0.5 MG TABLET PO SCH ×2 (10:12→21:21)
[2017-01-21] MEDS: CLONIDINE HCL 0.1 MG TABLET PO SCH (10:13)
[2017-01-21] MEDS: ARIPIPRAZOLE 5 MG TABLET PO SCH (10:14)
[2017-01-21] MEDS: NORMAL SALINE 10 ML SDV (SCHEDULED) IV SCH ×2 (10:15→21:23)
[2017-01-21] MEDS: OXYCODONE-ACETAMINOPHEN 5-325 MG TABLET PO PRN (14:27)
[2017-01-21] MEDS: INSULIN LISPRO 100 UNIT/ML 3 ML VIAL SUBCUT PRN (16:57)
[2017-01-21] MEDS: LEVOFLOXACIN 750 MG/D5W RTU 750 MG/150 ML RTUPB IV SCH (17:00)
--- NOTE | 2017-01-21 17:41 | PDOC PROGRESS REPORT ---
Subjective Progress Note for:: 01/21/17 Subjective:: Patient's condition is pretty much unchanged No fever no chills Pain is controlled with pain meds He is looks quite depressed, the wound VAC is still in place Cultures showed gram-positive cocci and gram-negative bacteria Patient is currently on clindamycin and Levaquin Vancomycin was held today as his renal function is worsening and vanco trough level was upper limit of normal Physical Exam Vital Signs: Temp Pulse Resp BP Pulse Ox 97.4 F 65 16 98/62 L 94 01/21/17 15:54 01/21/17 15:54 01/21/17 15:54 01/21/17 15:54 01/21/17 15:54 Intake & Output 01/20/17 01/21/17 01/22/17 00:59 00:59 00:59 Intake Total 1372 1445 365 Output Total 2600 2600 Balance -1228 -1155 365 Weight 109.6 kg 110.3 kg 110 kg General appearance: PRESENT: no acute distress, well-developed, well-nourished Head exam: PRESENT: atraumatic, normocephalic Eye exam: PRESENT: conjunctiva pink, EOMI, PERRLA. ABSENT: scleral icterus Ear exam: PRESENT: normal external ear exam Mouth exam: PRESENT: moist, tongue midline Neck exam: ABSENT: carotid bruit, JVD, lymphadenopathy, thyromegaly Respiratory exam: PRESENT: clear to auscultation vanessa. ABSENT: rales, rhonchi, wheezes Cardiovascular exam: PRESENT: RRR. ABSENT: diastolic murmur, rubs, systolic murmur Pulses: PRESENT: normal dorsalis pedis pul Vascular exam: PRESENT: normal capillary refill GI/Abdominal exam: PRESENT: normal bowel sounds, soft. ABSENT: distended, guarding, mass, organolmegaly, rebound, tenderness Rectal exam: PRESENT: deferred Extremities exam: PRESENT: full ROM, other - Left foot the wound VAC is in place some mild redness and swelling persist. ABSENT: calf tenderness, clubbing , pedal edema Neurological exam: PRESENT: alert, awake, oriented to person, oriented to place , oriented to time, oriented to situation, CN II-XII grossly intact. ABSENT: motor sensory deficit Psychiatric exam: PRESENT: appropriate affect, normal mood. ABSENT: homicidal ideation, suicidal ideation Skin exam: PRESENT: dry, intact, warm. ABSENT: cyanosis, rash Results Laboratory Results: 01/20/17 04:07 01/21/17 06:10 01/21/17 06:10 Creatinine 2.12 H Est GFR ( Amer) 41 L Est GFR (Non-Af Amer) 34 L 01/21/17 01/21/17 06:10 06:10 Creatinine 2.12 H Est GFR ( Amer) 41 L Est GFR (Non-Af Amer) 34 L Vancomycin Trough 20.0 01/18/17 12:30 Gram Stain - Preliminary Foot - Left Wound Culture - Preliminary Gram Positive Cocci Acinetobacter Baumannii/Haem Impressions: Chest X-Ray 01/17/17 00:00 IMPRESSION: IMPROVED POSITION OF THE PICC LINE. NO ACUTE RADIOGRAPHIC FINDING IN THE CHEST. Foot X-Ray 01/17/17 00:00 IMPRESSION: NO CHANGE SINCE 01/15/2017. Assessment & Plan - Diagnosis (1) Diabetic infection of left foot Is this a current diagnosis for this admission?: Yes (2) Peripheral vascular disease Is this a current diagnosis for this admission?: Yes (3) Wheezing Is this a current diagnosis for this admission?: Yes (4) Bipolar disorder Qualifiers: Active/Remission status: remission status unspecified Qualified Code (s): F31.9 - Bipolar disorder, unspecified Is this a current diagnosis for this admission?: Yes - Time Time Spent with patient: We will hydrate and a follow-up renal function closely Decreased Levaquin as per GFR Discontinued vancomycin; awaiting identification and sensitivity of the gram- positive Continue otherwise the present management We will discuss the case in a.m. with surgery ? How long this patient need to stay as an inpatient ? Doesn't need further debridement Patient may be transferred to medical unit Time Spent with patient: 25-34 minutes
[2017-01-21] MEDS ORDERED: LEVOFLOXACIN 750 MG/D5W RTU 750 MG/150 ML RTUPB IV SCH (18:00)
[2017-01-21] MEDS ORDERED: VANCOMYCIN HCL 750 MG in DEXTROSE 5%-WATER 250 ML IV SCH (18:00)
[2017-01-21] MEDS ORDERED: NORMAL SALINE 1000 ML 1,000 ML IV ONE (21:08)
[2017-01-21] MEDS: SIMVASTATIN 10 MG TABLET PO SCH (21:21)
[2017-01-21] MEDS: INSULIN GLARGINE,HUM.REC.ANLOG 300 UNIT/3 ML INSULN.PEN SUBCUT SCH (21:22)
[2017-01-22] MEDS: CLONIDINE HCL 0.1 MG TABLET PO SCH ×3 (00:04→21:23)
[2017-01-22] MEDS: HYDRALAZINE HCL 50 MG TABLET PO SCH ×2 (00:04→06:29)
[2017-01-22] MEDS: LISINOPRIL 5 MG TABLET PO SCH ×2 (00:05→21:23)
[2017-01-22] MEDS: CLINDAMYCIN 600 MG/D5W RTU 50 ML IV SCH ×3 (06:24→21:11)
[2017-01-22] MEDS: IPRATROPIUM/ALBUTEROL 0.5-2.5 MG/3 ML AMPUL NEB PRN (09:14)
--- NOTE | 2017-01-22 09:18 | PDOC PROGRESS REPORT ---
Subjective Progress Note for:: 01/22/17 Subjective:: Patient appears somewhat withdrawn and depressed Last night his blood pressure was low did get a fluid bolus ; his blood pressure meds were on hold He was evaluated a by surgery and the wound appears clean without drainage; wound VAC was reapplied Patient may be discharged tomorrow if cultures and sensitivities are available Physical Exam Vital Signs: Temp Pulse Resp BP Pulse Ox 97.6 F 90 16 108/66 95 01/22/17 07:23 01/22/17 07:23 01/22/17 07:23 01/22/17 07:23 01/22/17 07:23 Intake & Output 01/21/17 01/22/17 01/23/17 00:59 00:59 00:59 Intake Total 1445 1687 1100 Output Total 2600 500 Balance -1155 1687 600 Weight 110.3 kg 110 kg 113.5 kg General appearance: PRESENT: no acute distress, well-developed, well-nourished Head exam: PRESENT: atraumatic, normocephalic Eye exam: PRESENT: conjunctiva pink, EOMI, PERRLA. ABSENT: scleral icterus Ear exam: PRESENT: normal external ear exam Mouth exam: PRESENT: moist, tongue midline Neck exam: ABSENT: carotid bruit, JVD, lymphadenopathy, thyromegaly Respiratory exam: PRESENT: clear to auscultation vanessa. ABSENT: rales, rhonchi, wheezes Cardiovascular exam: PRESENT: RRR. ABSENT: diastolic murmur, rubs, systolic murmur Pulses: PRESENT: normal dorsalis pedis pul Vascular exam: PRESENT: normal capillary refill GI/Abdominal exam: PRESENT: normal bowel sounds, soft. ABSENT: distended, guarding, mass, organolmegaly, rebound, tenderness Rectal exam: PRESENT: deferred Extremities exam: PRESENT: full ROM, other - Left foot surgical wound is clean no drainage noted no redness surrounding the wound Wound Vac was replaced. ABSENT: calf tenderness, clubbing, pedal edema Neurological exam: PRESENT: alert, awake, oriented to person, oriented to place , oriented to time, oriented to situation, CN II-XII grossly intact. ABSENT: motor sensory deficit Psychiatric exam: PRESENT: appropriate affect, normal mood. ABSENT: homicidal ideation, suicidal ideation Skin exam: PRESENT: dry, intact, warm. ABSENT: cyanosis, rash Results Laboratory Results: 01/20/17 04:07 01/21/17 06:10 Impressions: Chest X-Ray 01/17/17 00:00 IMPRESSION: IMPROVED POSITION OF THE PICC LINE. NO ACUTE RADIOGRAPHIC FINDING IN THE CHEST. Foot X-Ray 01/17/17 00:00 IMPRESSION: NO CHANGE SINCE 01/15/2017. Assessment & Plan - Diagnosis (1) Diabetic infection of left foot Is this a current diagnosis for this admission?: YesPlan: Status post excision metatarsal bone and transferred metatarsal amputation second toe Wound is now clean with granulation tissue Continue wound VAC Awaiting reports of cultures and sensitivities (2) Peripheral vascular disease Is this a current diagnosis for this admission?: Yes (3) Wheezing Is this a current diagnosis for this admission?: Yes (4) Bipolar disorder Qualifiers: Active/Remission status: remission status unspecified Qualified Code (s): F31.9 - Bipolar disorder, unspecified Is this a current diagnosis for this admission?: YesPlan: Depression We'll decrease Xanax to 1 mg every 12 Add Remeron 15 mg at night - Time Time Spent with patient: Spoke with service planner;plan to arrange wound VAC at home Patient likely will be discharged tomorrow PT evaluation Patient may ambulate with wound VAC Time Spent with patient: 25-34 minutes
[2017-01-22 09:36] LABS: ABSOLUTE EOSINOPHILS # (AUTO) 0.3 10^3/uL (0.0-0.6); ABSOLUTE LYMPHOCYTES (AUTO) 1.3 10^3/uL (0.5-4.7); ABSOLUTE MONOCYTES (AUTO) 0.8 10^3/uL (0.1-1.4); ABSOLUTE NEUT (AUTO) 2.8 10^3/uL (1.7-8.2); BASOPHILS % (AUTO) 0.8 % (0-2); EOSINOPHILS % (AUTO) 5.4 % (0-6); HEMOGLOBIN 11.2 g/dL (13.5-17.0); HGB HCT DIFFERENCE -0.4; LYMPHOCYTES % (AUTO) 25.2 % (13-45); MEAN CORPUSCULAR HEMOGLOBIN 27.5 pg (27.0-33.4); MEAN CORPUSCULAR HGB CONC 32.9 g/dL (32.0-36.0); MEAN CORPUSCULAR VOLUME 84 fl (80-97); MONOCYTES % (AUTO) 15.5 % (3-13); RED BLOOD COUNT 4.07 10^6/uL (4.35-5.55); RED CELL DISTRIBUTION WIDTH 14.1 % (11.5-14.0); SEGMENTED NEUTROPHILS % (AUTO) 53.1 % (42-78); WHITE BLOOD COUNT 5.3 10^3/uL (4.0-10.5)
--- NOTE | 2017-01-22 09:49 | PDOC PROGRESS REPORT ---
Subjective Progress Note for:: 01/22/17 Subjective:: No complaints Physical Exam Vital Signs: Temp Pulse Resp BP Pulse Ox 97.6 F 90 16 108/66 95 01/22/17 07:23 01/22/17 07:23 01/22/17 07:23 01/22/17 07:23 01/22/17 07:23 Intake & Output 01/21/17 01/22/17 01/23/17 06:59 06:59 06:59 Intake Total 1510 2422 Output Total 1950 500 Balance -440 1922 Weight 110 kg 113.5 kg General appearance: PRESENT: no acute distress Extremities exam: PRESENT: other - Left foot transmetatarsal amputation site looks very clean with no necrotic debris no pus. There is a granulation tissue. Minimal rim of erythema. Results Impressions: Chest X-Ray 01/17/17 00:00 IMPRESSION: IMPROVED POSITION OF THE PICC LINE. NO ACUTE RADIOGRAPHIC FINDING IN THE CHEST. Foot X-Ray 01/17/17 00:00 IMPRESSION: NO CHANGE SINCE 01/15/2017. Assessment & Plan - Diagnosis (1) Diabetic infection of left foot Is this a current diagnosis for this admission?: YesPlan: Status post left second toe transmetatarsal amputation. The wound looks very good it is starting to granulate. Continue wound VAC. Get physical therapy consult for partial weightbearing ambulation. May discharge the patient home once the cultures are back and we can place him on by mouth antibiotics. With follow-up at the wound care [facility]. Would discharge the patient home with wound VAC.
[2017-01-22 09:52] LABS: ANION GAP 10 (5-19); BLOOD UREA NITROGEN 28 mg/dL (7-20); CALCIUM 9.6 mg/dL (8.4-10.2); CARBON DIOXIDE 24 mmol/L (22-30); CHLORIDE 108 mmol/L (98-107); CREATININE RESULT 1.63 mg/dL (0.52-1.25); GLUCOSE 167 mg/dL (75-110); POTASSIUM 5.3 mmol/L (3.6-5.0); SODIUM 141.8 mmol/L (137-145)
[2017-01-22] MEDS: DOCUSATE SODIUM 100 MG CAPSULE PO SCH ×3 (10:00→17:07)
[2017-01-22] MEDS: ARIPIPRAZOLE 5 MG TABLET PO SCH (10:58)
[2017-01-22] MEDS: ALPRAZOLAM 0.5 MG TABLET PO SCH ×2 (11:00→21:22)
[2017-01-22] MEDS: NORMAL SALINE 1000 ML 1,000 ML IV PRN ×2 (11:02→20:50)
[2017-01-22] MEDS: NORMAL SALINE 10 ML SDV (SCHEDULED) IV SCH ×2 (11:08→21:17)
[2017-01-22] MEDS: OXYCODONE-ACETAMINOPHEN 5-325 MG TABLET PO PRN ×3 (11:10→21:22)
[2017-01-22] MEDS: INSULIN LISPRO 100 UNIT/ML 3 ML VIAL SUBCUT PRN ×2 (14:45→17:07)
[2017-01-22] MEDS: SIMVASTATIN 10 MG TABLET PO SCH (21:22)
[2017-01-22] MEDS: INSULIN GLARGINE,HUM.REC.ANLOG 300 UNIT/3 ML INSULN.PEN SUBCUT SCH (21:24)
[2017-01-22] MEDS ORDERED: MIRTAZAPINE 15 MG TABLET PO SCH (22:00)
[2017-01-23] MEDS: OXYCODONE-ACETAMINOPHEN 5-325 MG TABLET PO PRN ×2 (02:29→08:12)
[2017-01-23] MEDS: CLINDAMYCIN 600 MG/D5W RTU 50 ML IV SCH (05:49)
[2017-01-23] MEDS: NORMAL SALINE 1000 ML 1,000 ML IV PRN (06:58)
[2017-01-23] MEDS: ARIPIPRAZOLE 5 MG TABLET PO SCH (10:28)
[2017-01-23] MEDS: ALPRAZOLAM 0.5 MG TABLET PO SCH (10:28)
[2017-01-23] MEDS: CLONIDINE HCL 0.1 MG TABLET PO SCH (10:29)
[2017-01-23] MEDS: DOCUSATE SODIUM 100 MG CAPSULE PO SCH (10:39)
[2017-01-23] MEDS: NORMAL SALINE 10 ML SDV (SCHEDULED) IV SCH (10:59)
[2017-01-23 11:01] VITALS: BP 120/77
--- NOTE | 2017-01-23 11:21 | PDOC DISCHARGE SUMMARY ---
General - Admit/Disc Date/PCP Admission Date/Primary Care Provider: 01/17/17 08:21 Discharge Date: 01/23/17 - Discharge Diagnosis (1) Diabetic infection of left foot Is this a current diagnosis for this admission?: Yes (2) Peripheral vascular disease Is this a current diagnosis for this admission?: Yes (3) Wheezing Is this a current diagnosis for this admission?: Yes (4) Bipolar disorder Is this a current diagnosis for this admission?: Yes - Additional Information Resuscitation Status: Full Code Discharge Diet: Diabetic Discharge Activity: Activity As Tolerated, Balance Activity w/Rest Home Medications: Aripiprazole [Abilify 20 mg Tablet] 20 mg PO DAILY 01/17/17 Clonidine HCl [Catapres 0.1 mg Tablet] 0.1 mg PO Q12 01/17/17 Emtricitab/Rilpiviri/Tenof Ala [Odefsey Tablet] 1 tab PO DAILY 01/17/17 Hydralazine HCl [Apresoline 50 mg Tablet] 50 mg PO Q8 01/17/17 Lisinopril [Zestril] 5 mg PO QHS 01/17/17 Simvastatin [Zocor 20 mg Tablet] 20 mg PO QHS 01/17/17 Acidoph/L.bulg/Bif.b/S.thermop [Bacid Caplet] 1 tab PO BID #20 tablet 01/23/17 Alprazolam [Xanax 0.5 mg Tablet] 1 mg PO Q12 #60 tablet 01/23/17 Clindamycin HCl 300 mg PO TID #30 capsule 01/23/17 Insulin Glargine,Hum.rec.anlog [Lantus Insulin 100 Unit/mL] 50 unit SUBCUT QHS # 1 insuln.pen 01/23/17 Levofloxacin [Levaquin 750 mg Tablet] 750 mg PO Q2DAYS #5 tablet 01/23/17 Mirtazapine [Remeron 15 mg Tablet] 15 mg PO QHS #30 tablet 01/23/17 Oxycodone HCl/Acetaminophen [Percocet 5-325 mg Tablet] 1 tab PO Q4HP PRN #30 tablet 01/23/17 History of Present Illness Patient complains of: hypertension , wound foot History of Present Illness: MILADYS LONDON III is a 46 year old male ith multiple chronic comorbidities, including HIV disease, history of pulmonary embolus, on Eliquis for same, bipolar disorder, posttraumatic stress disorder, marijuana and cocaine use, COPD, hyperlipidemia, type I diabetes mellitus, and status post recent amputation of 2 toes from his left foot who presents to the emergency room at the urging of the local wound care clinic for evaluation of above complaint. Patient has been discussed with emergency room physician who evaluated the patient. Hospitalized on our service the of last month for the second of this month with discharge diagnoses including diabetic left foot infection, status post amputation of second and third toes. With a reported history of MRSA, patient was placed on Zyvox, with plans for twice a day infusion until February 11 through PICC line. Patient states he's been following these recommendations. History and physical and discharge summary have been reviewed. Over the last 2 days, he's noted gradually increasing swelling and pain in his left foot along with fever at home to 103.0. He said nausea with 2 episodes of vomiting. However, he states his nausea is been so pronounced at times, he's had little by mouth intake over the last 2 days or so. There's been no diarrhea or dysuria, chest or abdominal pain. Was seen at the local wound care clinic for the second time on the . Systolic blood pressure was noted to be 90. Was sent to the emergency room for further evaluation. He did admit taking his clonidine, atenolol, and hydrochlorothiazide that morning but no evening dosages. PICC line was actually changed on the , using the same site. Underlying HIV. States his last infectious disease clinic appointment was in October with viral load Hospital Course Hospital Course: Patient had debridement wound left foot ad wound vac was applied repeat cultures showed acinetobacter sensitive to cipro Patient was treated with levaquin and clinda po meds to be continues at discharge PICC line was disontinued Physical Exam Vital Signs: Temp Pulse Resp BP Pulse Ox 97.9 F 85 18 120/77 100 01/23/17 10:51 01/23/17 10:51 01/23/17 10:51 01/23/17 10:51 01/23/17 10:51 Intake & Output 01/22/17 01/23/17 01/24/17 00:59 00:59 00:59 Intake Total 9071 2840 6852 Output Total 3789 815 Balance 1682 571 897 Weight 110 kg 113.5 kg 115.4 kg General appearance: PRESENT: no acute distress, well-developed, well-nourished Head exam: PRESENT: atraumatic, normocephalic Eye exam: PRESENT: conjunctiva pink, EOMI, PERRLA. ABSENT: scleral icterus Ear exam: PRESENT: normal external ear exam Mouth exam: PRESENT: moist, tongue midline Neck exam: ABSENT: carotid bruit, JVD, lymphadenopathy, thyromegaly Respiratory exam: PRESENT: clear to auscultation vanessa. ABSENT: rales, rhonchi, wheezes Cardiovascular exam: PRESENT: RRR. ABSENT: diastolic murmur, rubs, systolic murmur Pulses: PRESENT: normal dorsalis pedis pul Vascular exam: PRESENT: normal capillary refill GI/Abdominal exam: PRESENT: normal bowel sounds, soft. ABSENT: distended, guarding, mass, organolmegaly, rebound, tenderness Rectal exam: PRESENT: deferred Extremities exam: PRESENT: full ROM, other - Wound left foot is clean with granulating tissue no drainage no foul-smelling. ABSENT: calf tenderness, clubbing, pedal edema Neurological exam: PRESENT: alert, awake, oriented to person, oriented to place , oriented to time, oriented to situation, CN II-XII grossly intact. ABSENT: motor sensory deficit Psychiatric exam: PRESENT: appropriate affect, normal mood. ABSENT: homicidal ideation, suicidal ideation Skin exam: PRESENT: dry, intact, warm. ABSENT: cyanosis, rash Results Laboratory Results: 01/22/17 09:25 01/22/17 09:25 01/18/17 12:30 Foot - Left Gram Stain - Final Labs- Last Values WBC 5.3 10^3/uL (4.0-10.5) 01/22/17 09:25 RBC 4.07 10^6/uL (4.35-5.55) L 01/22/17 09:25 Hgb 11.2 g/dL (13.5-17.0) L 01/22/17 09:25 Hct 34.0 % (37.9-51.0) L 01/22/17 09:25 MCV 84 fl (80-97) 01/22/17 09:25 MCH 27.5 pg (27.0-33.4) 01/22/17 09:25 MCHC 32.9 g/dL (32.0-36.0) 01/22/17 09:25 RDW 14.1 % (11.5-14.0) H 01/22/17 09:25 Plt Count 220 10^3/uL (150-450) 01/22/17 09:25 Seg Neutrophils % 53.1 % (42-78) 01/22/17 09:25 Lymphocytes % 25.2 % (13-45) 01/22/17 09:25 Monocytes % 15.5 % (3-13) H 01/22/17 09:25 Eosinophils % 5.4 % (0-6) 01/22/17 09:25 Basophils % 0.8 % (0-2) 01/22/17 09:25 Absolute Neutrophils 2.8 10^3/uL (1.7-8.2) 01/22/17 09:25 Absolute Lymphocytes 1.3 10^3/uL (0.5-4.7) 01/22/17 09:25 Absolute Monocytes 0.8 10^3/uL (0.1-1.4) 01/22/17 09:25 Absolute Eosinophils 0.3 10^3/uL (0.0-0.6) 01/22/17 09:25 Absolute Basophils 0.0 10^3/uL (0.0-0.2) 01/22/17 09:25 PT 12.5 SEC (11.4-15.4) 01/17/17 09:15 INR 0.91 01/17/17 09:15 APTT 31.6 SEC (23.5-35.8) 01/17/17 09:15 Sodium 141.8 mmol/L (137-145) 01/22/17 09:25 Potassium 5.3 mmol/L (3.6-5.0) H 01/22/17 09:25 Chloride 108 mmol/L (98-107) H 01/22/17 09:25 Carbon Dioxide 24 mmol/L (22-30) 01/22/17 09:25 Anion Gap 10 (5-19) 01/22/17 09:25 BUN 28 mg/dL (7-20) H 01/22/17 09:25 Creatinine 1.63 mg/dL (0.52-1.25) H 01/22/17 09:25 Est GFR ( Amer) 55 (>60) L 01/22/17 09:25 Est GFR (Non-Af Amer) 45 (>60) L 01/22/17 09:25 Glucose 167 mg/dL (75-110) H 01/22/17 09:25 POC Glucose 232 mg/dL (70-110) H 01/23/17 05:49 Calcium 9.6 mg/dL (8.4-10.2) 01/22/17 09:25 Magnesium 2.0 mg/dL (1.6-2.3) 01/17/17 09:15 Total Bilirubin 0.4 mg/dL (0.2-1.3) 01/17/17 01:10 Direct Bilirubin 0.0 mg/dL (0.0-0.3) 01/17/17 01:10 AST 57 U/L (17-59) 01/17/17 01:10 ALT 71 U/L (21-72) 01/17/17 01:10 Alkaline Phosphatase 112 U/L (38-126) 01/17/17 01:10 Total Protein 8.4 g/dL (6.3-8.2) H 01/17/17 01:10 Albumin 3.9 g/dL (3.5-5.0) 01/17/17 01:10 Urine Color YELLOW 01/17/17 00:09 Urine Appearance SLIGHTLY-CLOUDY 01/17/17 00:09 Urine pH 5.0 (5.0-9.0) 01/17/17 00:09 Ur Specific [place] 1.017 01/17/17 00:09 Urine Protein 100 mg/dL (NEGATIVE) H 01/17/17 00:09 Urine Glucose (UA) >=500 mg/dL (NEGATIVE) H 01/17/17 00:09 Urine Ketones NEGATIVE mg/dL (NEGATIVE) 01/17/17 00:09 Urine Blood NEGATIVE (NEGATIVE) 01/17/17 00:09 Urine Nitrite NEGATIVE (NEGATIVE) 01/17/17 00:09 Urine Bilirubin NEGATIVE (NEGATIVE) 01/17/17 00:09 Urine Urobilinogen NEGATIVE mg/dL (<2.0) 01/17/17 00:09 Ur Leukocyte Esterase NEGATIVE (NEGATIVE) 01/17/17 00:09 Urine WBC (Auto) 2 /HPF 01/17/17 00:09 Urine RBC (Auto) 2 /HPF 01/17/17 00:09 U Hyaline Cast (Auto) 13 /LPF 01/17/17 00:09 Urine Mucus (Auto) RARE /LPF 01/17/17 00:09 Urine Ascorbic Acid NEGATIVE (NEGATIVE) 01/17/17 00:09 Time Trough Drawn 0610 01/21/17 06:10 Vancomycin Trough 20.0 ug/mL (5.0-20.0) 01/21/17 06:10 01/18/17 12:30 Gram Stain - Final Foot - Left Wound Culture - Preliminary Acinetobacter Baumannii/Haem Impressions: Chest X-Ray 01/17/17 00:00 IMPRESSION: IMPROVED POSITION OF THE PICC LINE. NO ACUTE RADIOGRAPHIC FINDING IN THE CHEST. Foot X-Ray 01/17/17 00:00 IMPRESSION: NO CHANGE SINCE 01/15/2017. Plan Discharge Plan: Patient was discharged home We will have the wound VAC applied by home nursing Wound VAC to be changed every 3 days He is to follow-up with wound care clinic Time Spent: Greater than 30 Minutes
[2017-01-23] MEDS ORDERED: LEVOFLOXACIN 750 MG/D5W RTU 750 MG/150 ML RTUPB IV SCH (18:00)
== END 2017-01-23 12:50 | disposition home health service (06) | DRG 618 ==
LOC: ER 16:35 → EH 01-17 06:50 → UNDOADMIN 01-17 06:50 → EH 01-17 08:21 → 3W 01-17 14:15
PROVIDERS: ADMIT Family Medicine; ATTEND Family Medicine
PROC: 3E0F73Z Introduction of Anti-inflammatory into Respiratory Tract, Via Natural or Artificial Opening (ICD-10-PCS; 2017-01-17)
PROC: 0Y6S0Z0 Detachment at Left 2nd Toe, Complete, Open Approach (ICD-10-PCS; principal; 2017-01-18 14:30)
DX: E11.621 Type 2 diabetes mellitus with foot ulcer (principal); F31.9 Bipolar disorder, unspecified; R06.2 Wheezing; I10 Essential (primary) hypertension; E11.69 Type 2 diabetes mellitus with other specified complication; F43.10 Post-traumatic stress disorder, unspecified; F12.90 Cannabis use, unspecified, uncomplicated; F14.90 Cocaine use, unspecified, uncomplicated; J44.9 Chronic obstructive pulmonary disease, unspecified; E78.5 Hyperlipidemia, unspecified; M19.90 Unspecified osteoarthritis, unspecified site; I25.10 Atherosclerotic heart disease of native coronary artery without angina pectoris; G40.909 Epilepsy, unspecified, not intractable, without status epilepticus; D64.9 Anemia, unspecified; I25.2 Old myocardial infarction; F17.210 Nicotine dependence, cigarettes, uncomplicated; E11.51 Type 2 diabetes mellitus with diabetic peripheral angiopathy without gangrene; N17.9 Acute kidney failure, unspecified; E66.9 Obesity, unspecified; Z68.37 Body mass index [BMI] 37.0-37.9, adult; Z86.14 Personal history of Methicillin resistant Staphylococcus aureus infection; Z21 Asymptomatic human immunodeficiency virus [HIV] infection status; Z88.0 Allergy status to penicillin; Z86.711 Personal history of pulmonary embolism; Z29.13 Encounter for prophylactic Rho(D) immune globulin; Z79.4 Long term (current) use of insulin; Z79.899 Other long term (current) drug therapy; Z89.422 Acquired absence of other left toe(s); Z96.651 Presence of right artificial knee joint; Z89.421 Acquired absence of other right toe(s); Z83.3 Family history of diabetes mellitus; Z82.49 Family history of ischemic heart disease and other diseases of the circulatory system
CPT/HCPCS: 01480; 36415; 71010; 71020; 77001; 80048; 80053; 80202; 81001; 82565; 82962; 83036; 83735; 85025; 85610; 85652; 85730; 86140; 87040; 87070; 87075; 87077; 87186; 87205; 94640; J1642; J1815; J1940; J1956; J2250; J2270; J2704; J3010; J3370; J3490; J7030; J7060; J7620

== ENCOUNTER 2017-02-03 11:49 | Emergency (ER) | payer MEDICARE, MEDICAID ==
--- NOTE | 2017-02-03 12:31 | ER Document Report ---
ED Medical Screen (RME) - General Stated Complaint: FOOT PAIN Notes: Patient states he had left second and third toes amputated a couple weeks ago. States he is having redness and drainage to toes and pain is radiating up leg. Patient is diabetic. Patient denies fever, but states he is having some diarrhea. I have greeted and performed a rapid initial assessment of this patient. A comprehensive ED assessment and evaluation of the patient, analysis of test results and completion of the medical decision making process will be conducted by additional ED providers. TRAVEL OUTSIDE OF THE [place] IN LAST 30 DAYS: No - Related Data Allergies/Adverse Reactions: Penicillins Allergy (Verified 01/16/17 17:16) rash Past Medical History - Social History Family history: None - Past Medical History Cardiac Medical History: Reports: Hx Coronary Artery Disease, Hx Heart Attack, Hx Hypercholesterolemia, Hx Hypertension, Hx Peripheral Vascular Disease, Hx Pulmonary Embolism Pulmonary Medical History: Reports: Hx COPD, Hx Pneumonia - 1 year ago Neurological Medical History: Reports: Hx Seizures - 4 years ago; Depakote stopped by his physician. Endocrine Medical History: Reports: Hx Diabetes Mellitus Type 1, Hx Diabetes Mellitus Type 2 - IDDM Renal/ Medical History: Reports: Hx Renal Insufficiency - Stage III renal failure. Denies: Hx Peritoneal Dialysis Malignancy Medical History: GI Medical History: Reports: Hx Hepatitis Musculoskeltal Medical History: Reports Hx Arthritis, Reports Hx Musculoskeletal Trauma Skin Medical History: Psychiatric Medical History: Reports: Hx Anxiety, Hx Bipolar Disorder, Hx Depression, Hx Post Traumatic Stress Disorder Traumatic Medical History: Reports: Hx Fractures - Knee pelvis and hand Infectious Medical History: Reports: Hx Hepatitis, Hx HIV - Patient reports no detectable viral count, Hx MRSA Past Surgical History: Reports: Hx Oral Surgery - Removal of most of teeth, Hx Orthopedic Surgery - right knee replacement, rt toe amputation; amputation 2 left toes., Other - Laser eye surgery - Immunizations Immunizations up to date: Yes Hx Diphtheria, Pertussis, Tetanus Vaccination: Yes Physical Exam - Vital signs Vitals: Temp Pulse Resp BP Pulse Ox 98.9 F 85 20 122/74 97 02/03/17 12:22 02/03/17 12:22 02/03/17 12:22 02/03/17 12:22 02/03/17 12:22 - Cardiovascular Rhythm: Regular Heart sounds: Normal auscultation Course - Vital Signs Vital signs: Temp Pulse Resp BP Pulse Ox 98.9 F 85 20 122/74 97 02/03/17 12:22 02/03/17 12:22 02/03/17 12:22 02/03/17 12:22 02/03/17 12:22
[2017-02-03 13:13] LABS: HEMATOCRIT 30.6 % (37.9-51.0); HGB HCT DIFFERENCE -0.6; MEAN CORPUSCULAR HEMOGLOBIN 27.7 pg (27.0-33.4); MEAN CORPUSCULAR HGB CONC 32.8 g/dL (32.0-36.0); MEAN CORPUSCULAR VOLUME 85 fl (80-97); RED BLOOD COUNT 3.61 10^6/uL (4.35-5.55); RED CELL DISTRIBUTION WIDTH 14.5 % (11.5-14.0); WHITE BLOOD COUNT 6.3 10^3/uL (4.0-10.5)
[2017-02-03 13:18] LABS: APPEARANCE,URINE CLEAR; BILIRUBIN,URINE NEGATIVE (NEGATIVE); GLUCOSE, URINE >=500 mg/dL (NEGATIVE); KETONES,URINE NEGATIVE (NEGATIVE); LEUKOCYTE ESTERASE,URINE NEGATIVE (NEGATIVE); NITRITE,URINE NEGATIVE (NEGATIVE); PROTEIN,URINE 30 mg/dL (NEGATIVE); URINE SPECIFIC GRAVITY 1.012; UROBILINOGEN,URINE NEGATIVE mg/dL (<2.0)
[2017-02-03 13:38] LABS: ALANINE AMINOTRANSFERASE 32 U/L (21-72); ALBUMIN 4.1 g/dL (3.5-5.0); ALKALINE PHOSPHATASE 102 U/L (38-126); ANION GAP 14 (5-19); ASPARTATE AMINO TRANSFERASE 26 U/L (17-59); BILIRUBIN,DIRECT 0.3 mg/dL (0.0-0.4); BILIRUBIN,TOTAL 0.3 mg/dL (0.2-1.3); BLOOD UREA NITROGEN 26 mg/dL (7-20); CALCIUM 9.2 mg/dL (8.4-10.2); CARBON DIOXIDE 22 mmol/L (22-30); CHLORIDE 105 mmol/L (98-107); CREATININE RESULT 1.78 mg/dL (0.52-1.25); GLUCOSE 285 mg/dL (75-110); SODIUM 141.1 mmol/L (137-145)
[2017-02-03 13:46] LABS: POTASSIUM 6.3 mmol/L (3.6-5.0)
[2017-02-03 13:58] LABS: BASOPHILS % (MANUAL) 0 % (0-2); EOSINOPHILS % (MANUAL) 3 % (0-6); LYMPHOCYTES % (MANUAL) 15 % (13-45); RBC MORPHOLOGY COMMENT NORMO-CYTIC/CHROMIC; TOTAL CELLS COUNTED 100
--- NOTE | 2017-02-03 16:47 | ER Document Report ---
ED General <DALE SIERRA - Last Filed: 02/03/17 17:59> - General Mode of Arrival: Ambulatory Information source: Patient TRAVEL OUTSIDE OF THE [place] IN LAST 30 DAYS: No - HPI Onset: Yesterday Onset/Duration: Persistent Quality of pain: Achy, Pressure Similar symptoms previously: Yes Recently seen / treated by doctor: Yes <VARGAS CARPENTER - Last Filed: 02/03/17 18:19> - General Chief Complaint: Foot Pain Stated Complaint: FOOT PAIN Notes: Patient is a 46-year-old male that presents to the emergency department today with complaints of leg swelling bilaterally along with left foot pain. Patient states that his leg swelling began last night. Patient has a chronic wound to his left foot which he is currently being treated at wound care for. Patient states he had a wound vac on this left foot wound however he took it off prior to arrival today. Patient had lab work done in triage and was found to have a Potassium of 6.3. Upon questioning, patient admits to consuming large amounts of orange juice frequently. (VARGAS CARPENTER) - Related Data Allergies/Adverse Reactions: Penicillins Allergy (Verified 01/16/17 17:16) rash Past Medical History - General Information source: Patient, [facility] Records - Social History Smoking Status: Current Every Day Smoker Cigarette use (# per day): Yes Chew tobacco use (# tins/day): No Frequency of alcohol use: Occasional Drug Abuse: None Lives with: Family Family History: Reviewed & Not Pertinent, CAD, DM, Hyperlipidemia, Hypertension Patient has suicidal ideation: No Patient has homicidal ideation: No - Past Medical History Cardiac Medical History: Reports: Hx Coronary Artery Disease, Hx Heart Attack, Hx Hypercholesterolemia, Hx Hypertension, Hx Peripheral Vascular Disease, Hx Pulmonary Embolism Pulmonary Medical History: Reports: Hx COPD, Hx Pneumonia - 1 year ago Neurological Medical History: Reports: Hx Seizures - 4 years ago; Depakote stopped by his physician. Endocrine Medical History: Reports: Hx Diabetes Mellitus Type 1, Hx Diabetes Mellitus Type 2 - IDDM Renal/ Medical History: Reports: Hx Renal Insufficiency - Stage III renal failure. Denies: Hx Peritoneal Dialysis Malignancy Medical History: GI Medical History: Reports: Hx Hepatitis Musculoskeltal Medical History: Reports Hx Arthritis, Reports Hx Musculoskeletal Trauma Skin Medical History: Psychiatric Medical History: Reports: Hx Anxiety, Hx Bipolar Disorder, Hx Depression, Hx Post Traumatic Stress Disorder Traumatic Medical History: Reports: Hx Fractures - Knee pelvis and hand Infectious Medical History: Reports: Hx Hepatitis, Hx HIV - Patient reports no detectable viral count, Hx MRSA Past Surgical History: Reports: Hx Oral Surgery - Removal of most of teeth, Hx Orthopedic Surgery - right knee replacement, rt toe amputation; amputation 2 left toes., Other - Laser eye surgery - Immunizations Immunizations up to date: Yes Hx Diphtheria, Pertussis, Tetanus Vaccination: Yes Hx Pneumococcal Vaccination: 11/09/13 <VARGAS CARPENTER - Last Filed: 02/03/17 18:19> Review of Systems - Review of Systems Constitutional: No symptoms reported EENT: No symptoms reported Cardiovascular: No symptoms reported Respiratory: No symptoms reported Gastrointestinal: No symptoms reported Genitourinary: No symptoms reported Male Genitourinary: No symptoms reported Musculoskeletal: See HPI, Leg swelling Skin: No symptoms reported Hematologic/Lymphatic: No symptoms reported Neurological/Psychological: No symptoms reported -: Yes All other systems reviewed and negative <VARGAS CARPENTER - Last Filed: 02/03/17 18:19> Physical Exam <DALE SIERRA - Last Filed: 02/03/17 17:59> <VARGAS CARPENTER - Last Filed: 02/03/17 18:19> - Vital signs Vitals: Temp Pulse Resp BP Pulse Ox 98.9 F 85 20 122/74 97 02/03/17 12:22 02/03/17 12:22 02/03/17 12:22 02/03/17 12:22 02/03/17 12:22 - Notes Notes: Physical Exam: General: Alert, appears well. HEENT: Normocephalic. Atraumatic. PERRL. Extraocular movements intact. Oropharynx clear. Neck: Supple. Non-tender. Respiratory: No respiratory distress. Clear and equal breath sounds bilaterally. Cardiovascular: Regular rate and rhythm. Abdominal: Normal Inspection. Non-tender. No distension. Normal Bowel Sounds. Back: Non-tender. No deformity or step off. Extremities: Moves all four extremities. Lower extremities: Left foot has extensive bandaging. Bandage removed, 2nd and 3rd digits surgically absent. Good granulation tissue between wound from 1st digit to 4th digit. 2+ left lower extremity edema, 1+ right lower extremity edema. Neurological: Normal cognition. AAOx4. Normal speech. Psychological: Normal affect. Normal Mood. Skin: Warm. Dry. Normal color. (VARGAS CARPENTER) Course - Laboratory Result Diagrams: 02/03/17 12:45 02/03/17 12:45 - EKG Interpretation by Me EKG shows normal: Sinus rhythm, [place], Intervals, QRS Complexes, ST-T Waves Rate: Normal - 75 Rhythm: NSR <DALE SIERRA - Last Filed: 02/03/17 17:59> - Laboratory Result Diagrams: 02/03/17 12:45 02/03/17 12:45 <VARGAS CARPENTER - Last Filed: 02/03/17 18:19> - Vital Signs Vital signs: Temp Pulse Resp BP Pulse Ox 98.9 F 85 20 167/116 H 99 02/03/17 12:22 02/03/17 12:22 02/03/17 16:34 02/03/17 16:33 02/03/17 16:34 - Laboratory Laboratory results interpreted by me: 02/03/17 02/03/17 02/03/17 12:45 12:45 12:45 RBC 3.61 L Hgb 10.0 L Hct 30.6 L RDW 14.5 H Potassium 6.3 H* BUN 26 H Creatinine 1.78 H Est GFR ( Amer) 50 L Est GFR (Non-Af Amer) 41 L Glucose 285 H Urine Protein 30 H Urine Glucose (UA) >=500 H Discharge <DALE SIERRA - Last Filed: 02/03/17 17:59> <VARGAS CARPENTER - Last Filed: 02/03/17 18:19> - Discharge Clinical Impression: Hyperkalemia, Dehydration, Renal insufficiency, Left leg pain, Left leg swelling, Encounter for postoperative wound care Additional Instructions: Your wound looks quite good and is granulating in nicely. The venous Doppler of the leg did not show any blood clots. Your potassium level was high and this may be related to your drinking orange juice and your impaired renal function caused by diabetes. Elevate your foot all the time. Drink plenty of water today and tomorrow. Avoid foods and liquids that are high in potassium. Follow-up with your doctor tomorrow to recheck your potassium level. Prescriptions: Oxycodone HCl/Acetaminophen [Percocet 5-325 mg Tablet] 1 tab PO ASDIR PRN #12 tablet PRN Reason: Referrals: DORIE QUINTEROS, [facility] [Primary Care Provider] - Follow up as needed Scribe Attestation: 02/03/17 18:03 I personally performed the services described in the documentation, reviewed and edited the documentation which was dictated to the scribe in my presence, and it accurately records my words and actions. (DALE SIERRA) Scribe Documentation - Scribe Written by Vinaye:: Adolfo Gomez, 02/03/[id number] acting as scribe for :: Bartolome <VARGAS CARPENTER - Last Filed: 02/03/17 18:19>
[2017-02-03] MEDS ORDERED: SODIUM POLYSTYRENE SULFONATE 15 GM/60 ML PO ONE (16:50)
[2017-02-03 16:51] LABS: ADD ON TESTING BLD IN LAB ACKNOWLEDGE
[2017-02-03 17:07] LABS: CREATINE KINASE 129 U/L (55-170)
[2017-02-03 17:15] LABS: URINE BARBITURATES SCREEN NEGATIVE; URINE METHADONE SCREEN NEGATIVE; URINE OPIATES LOW UNCONFIRMED POSITIVE; URINE PHENCYCLIDINE SCREEN NEGATIVE
[2017-02-03 18:17] VITALS: BP 157/109
--- NOTE | 2017-02-03 20:27 | EKG REPORT ---
SEVERITY:- NORMAL ECG - SINUS RHYTHM : Confirmed by: Mulu Wooten 03-Feb-2017 20:26:18
--- NOTE | 2017-02-04 14:03 | XCELERA REPORT ---
[address] [address] Lower Extremity Venous Evaluation Name: MILADYS LONDON III Age: 46 yrs Gender: Male : 1970 Patient Status: Emergency Patient Location: ER Study Date: 02/03/2017 05:22 PM Procedure: Color flow and duplex imaging of the veins of the left lower extremity as well as the right Common Femoral vein. Reason For Study: left leg swelling Ordering Physician: DALE SIERRA Performed By: Tiff Jacobsen Right Sided Venous Evaluation The right common femoral vein is fully compressible. Spontaneous and phasic flow is present in the right common femoral vein. Left Sided Venous Evaluation Normal vessel filling wall to wall, compression and augmentation as well as Colour flow down to the infrageniculate veins. Critical Findings Discussed with Dr Sierra. Interpretation Summary No duplex evidence of DVT or obstruction in the left lower extremity nor in the right Common Femoral vein. : DALE SIERRA > Delano Wray
== END 2017-02-03 18:29 | disposition home or self-care (01) ==
LOC: ER 11:49
DX: N28.9 Disorder of kidney and ureter, unspecified (principal); E87.5 Hyperkalemia; E86.0 Dehydration; M79.672 Pain in left foot; M79.605 Pain in left leg; M79.89 Other specified soft tissue disorders; F17.210 Nicotine dependence, cigarettes, uncomplicated
CPT/HCPCS: 36415; 80053; 80307; 81001; 82550; 85025; 87040; 93005; 93010; 93971; 99284

== ENCOUNTER 2017-02-19 09:49 | Observation (INO) | payer MEDICARE, MEDICAID ==
[2017-02-19] MEDS ORDERED: OXYCODONE-ACETAMINOPHEN 5-325 MG TABLET PO ONE (10:07)
--- NOTE | 2017-02-19 10:31 | ER Document Report ---
ED Medical Screen (RME) - General Chief Complaint: Foot Pain Stated Complaint: LEFT FOOT PAIN Notes: The patient is a 46-year-old male, past medical history diabetes, second left toe amputation on 01/29/17 at [facility], presents with increased drainage, pain and swelling around his surgical site. He had a wound VAC removed 2 days ago at the wound care center. Since then, he has had increased swelling. He is taking clindamycin and is having mild amount of diarrhea. Denies injury, fevers , calf swelling, chest pain, shortness of breath, nausea or vomiting. I have greeted and performed a rapid initial assessment of this patient. A comprehensive ED assessment and evaluation of the patient, analysis of test results and completion of the medical decision making process will be conducted by additional ED providers. TRAVEL OUTSIDE OF THE [place] IN LAST 30 DAYS: No - Related Data Allergies/Adverse Reactions: Penicillins Allergy (Verified 01/16/17 17:16) rash Past Medical History - Social History Family history: None - Past Medical History Cardiac Medical History: Reports: Hx Coronary Artery Disease, Hx Heart Attack, Hx Hypercholesterolemia, Hx Hypertension, Hx Peripheral Vascular Disease, Hx Pulmonary Embolism Pulmonary Medical History: Reports: Hx COPD, Hx Pneumonia - 1 year ago Neurological Medical History: Reports: Hx Seizures - 4 years ago; Depakote stopped by his physician. Endocrine Medical History: Reports: Hx Diabetes Mellitus Type 1, Hx Diabetes Mellitus Type 2 - IDDM Renal/ Medical History: Reports: Hx Renal Insufficiency - Stage III renal failure. Denies: Hx Peritoneal Dialysis Malignancy Medical History: GI Medical History: Reports: Hx Hepatitis Musculoskeltal Medical History: Reports Hx Arthritis, Reports Hx Musculoskeletal Trauma Skin Medical History: Psychiatric Medical History: Reports: Hx Anxiety, Hx Bipolar Disorder, Hx Depression, Hx Post Traumatic Stress Disorder Traumatic Medical History: Reports: Hx Fractures - Knee pelvis and hand Infectious Medical History: Reports: Hx Hepatitis, Hx HIV - Patient reports no detectable viral count, Hx MRSA Past Surgical History: Reports: Hx Oral Surgery - Removal of most of teeth, Hx Orthopedic Surgery - right knee replacement, rt toe amputation; amputation 2 left toes., Other - Laser eye surgery - Immunizations Immunizations up to date: Yes Hx Diphtheria, Pertussis, Tetanus Vaccination: Yes Physical Exam - Vital signs Vitals: Temp Pulse Resp BP Pulse Ox 98.2 F 87 18 147/96 H 99 02/19/17 09:51 02/19/17 09:51 02/19/17 09:51 02/19/17 09:51 02/19/17 09:51 Course - Vital Signs Vital signs: Temp Pulse Resp BP Pulse Ox 98.2 F 87 18 147/96 H 99 02/19/17 09:51 02/19/17 09:51 02/19/17 09:51 02/19/17 09:51 02/19/17 09:51
[2017-02-19 11:05] LABS: ABSOLUTE BASOPHILS # (AUTO) 0.1 10^3/uL (0.0-0.2); ABSOLUTE EOSINOPHILS # (AUTO) 0.2 10^3/uL (0.0-0.6); ABSOLUTE MONOCYTES (AUTO) 0.6 10^3/uL (0.1-1.4); ABSOLUTE NEUT (AUTO) 2.4 10^3/uL (1.7-8.2); BASOPHILS % (AUTO) 1.6 % (0-2); EOSINOPHILS % (AUTO) 3.7 % (0-6); HEMATOCRIT 31.7 % (37.9-51.0); HEMOGLOBIN 10.6 g/dL (13.5-17.0); HGB HCT DIFFERENCE 0.1; LYMPHOCYTES % (AUTO) 24.2 % (13-45); MEAN CORPUSCULAR HEMOGLOBIN 28.2 pg (27.0-33.4); MEAN CORPUSCULAR HGB CONC 33.3 g/dL (32.0-36.0); MEAN CORPUSCULAR VOLUME 85 fl (80-97); MONOCYTES % (AUTO) 13.7 % (3-13); RED BLOOD COUNT 3.75 10^6/uL (4.35-5.55); RED CELL DISTRIBUTION WIDTH 15.4 % (11.5-14.0); SEGMENTED NEUTROPHILS % (AUTO) 56.8 % (42-78); WHITE BLOOD COUNT 4.3 10^3/uL (4.0-10.5)
[2017-02-19 12:33] LABS: ANION GAP 12 (5-19); BLOOD UREA NITROGEN 20 mg/dL (7-20); CALCIUM 9.6 mg/dL (8.4-10.2); CARBON DIOXIDE 25 mmol/L (22-30); CHLORIDE 102 mmol/L (98-107); CREATININE RESULT 1.33 mg/dL (0.52-1.25); GLUCOSE 214 mg/dL (75-110); SODIUM 139.2 mmol/L (137-145)
--- NOTE | 2017-02-19 13:10 | ER Document Report ---
ED Extremity Problem, Lower - General Chief Complaint: Foot Pain Stated Complaint: LEFT FOOT PAIN Time seen by provider: 11:20 Mode of Arrival: Wheelchair Information source: Patient Notes: 46-year-old male presents to ED for left foot pain. States he had his toes amputated on 323 and now has pain in the great toe which is swelling. States she still has an open wound from the amputation. Patient states the wound clinic has told him that the wound actually looks better. TRAVEL OUTSIDE OF THE [place] IN LAST 30 DAYS: No - HPI Patient complains to provider of: Pain Location: Great Toe Occurred: Just prior to arrival Onset/Duration: Gradual Quality of pain: Pressure, Sharp Severity: Severe Pain Level: 5 Context: Recent surgery - Amputation of second toe Recent injury: No Exacerbated by: Movement, Walking Relieved by: Nothing - Related Data Allergies/Adverse Reactions: Penicillins Allergy (Verified 01/16/17 17:16) rash Home Medications: Current Home Medications Alprazolam [Xanax] 2 mg PO Q12 02/19/17 [History] Fluoxetine HCl [Prozac] 40 mg PO DAILY 02/19/17 [History] Insulin Glargine,Hum.rec.anlog [Lantus Insulin 100 Unit/mL] 45 unit SUBCUT QHS 02/19/17 [History] Oxycodone HCl/Acetaminophen [Percocet 5-325 mg Tablet] 1 tab PO Q4HP PRN [History] Zolpidem Tartrate [Ambien] 15 mg PO HSP PRN 02/19/17 [History] Past Medical History - General Information source: Patient - Social History Smoking Status: Current Some Day Smoker Cigarette use (# per day): Yes - weekend smoker only when he strengthen Chew tobacco use (# tins/day): No Smoking Education Provided: Yes - encouraged to quit smoking Frequency of alcohol use: Social Drug Abuse: Cocaine, Marijuana Occupation: disability Lives with: Alone Family History: CAD, DM, Hyperlipidemia, Hypertension Patient has suicidal ideation: No Patient has homicidal ideation: No - Past Medical History Cardiac Medical History: Reports: Hx Coronary Artery Disease, Hx Heart Attack, Hx Hypercholesterolemia, Hx Hypertension, Hx Peripheral Vascular Disease, Hx Pulmonary Embolism Pulmonary Medical History: Reports: Hx COPD, Hx Pneumonia - 1 year ago EENT Medical History: Reports: None Neurological Medical History: Reports: Hx Seizures - 4 years ago; Depakote stopped by his physician. Endocrine Medical History: Reports: Hx Diabetes Mellitus Type 2 - IDDM Renal/ Medical History: Reports: Hx Renal Insufficiency - Stage III renal failure Malignancy Medical History: Reports None GI Medical History: Reports: Hx Hepatitis Musculoskeltal Medical History: Reports Hx Arthritis, Reports Hx Musculoskeletal Trauma Skin Medical History: Reports None Psychiatric Medical History: Reports: Hx Anxiety, Hx Bipolar Disorder, Hx Depression, Hx Post Traumatic Stress Disorder Traumatic Medical History: Reports: Hx Fractures - Knee pelvis and hand Infectious Medical History: Reports: Hx Hepatitis, Hx HIV - Patient reports no detectable viral count, Hx MRSA Past Surgical History: Reports: Hx Oral Surgery - Removal of most of teeth, Hx Orthopedic Surgery - right knee replacement, rt toe amputation; amputation 2 left toes., Other - Laser eye surgery - Immunizations Immunizations up to date: Yes Hx Diphtheria, Pertussis, Tetanus Vaccination: Yes Hx Pneumococcal Vaccination: 11/09/13 Review of Systems - Review of Systems Constitutional: No symptoms reported EENT: No symptoms reported Cardiovascular: No symptoms reported Respiratory: No symptoms reported Gastrointestinal: No symptoms reported Genitourinary: No symptoms reported Male Genitourinary: No symptoms reported Musculoskeletal: Other - Pain left great toe Skin: No symptoms reported Hematologic/Lymphatic: No symptoms reported Neurological/Psychological: No symptoms reported -: Yes All other systems reviewed and negative Physical Exam - Vital signs Vitals: Temp Pulse Resp BP Pulse Ox 98.2 F 87 18 147/96 H 99 02/19/17 09:51 02/19/17 09:51 02/19/17 09:51 02/19/17 09:51 02/19/17 09:51 Interpretation: Normal - General General appearance: Appears well, Alert - HEENT Head: Normocephalic, Atraumatic Eyes: Normal Pupils: PERRL - Respiratory Respiratory status: No respiratory distress Chest status: Nontender Breath sounds: Normal Chest palpation: Normal - Cardiovascular Rhythm: Regular Heart sounds: Normal auscultation Murmur: No - Abdominal Inspection: Normal Distension: No distension Bowel sounds: Normal Tenderness: Nontender Organomegaly: No organomegaly - Back Back: Normal, Nontender - Extremities General upper extremity: Normal inspection, Nontender, Normal color, Normal ROM , Normal temperature General lower extremity: Normal inspection, Nontender, Normal color, Normal ROM , Normal temperature, Normal weight bearing. No: Nikolay's sign Foot: Tender, Metatarsal compress. pain, No evidence of FB - Neurological Neuro grossly intact: Yes Cognition: Normal Orientation: AAOx4 Adel Coma Scale Eye Opening: Spontaneous Noemy Coma Scale Verbal: Oriented Noemy Coma Scale Motor: Obeys Commands Noemy Coma Scale Total: 15 Speech: Normal Motor strength normal: LUE, RUE, LLE, RLE Sensory: Normal - Psychological Associated symptoms: Normal affect, Normal mood - Skin Skin Temperature: Warm Skin Moisture: Dry Skin Color: Normal Course - Re-evaluation Re-evalutation: 02/19/17 19:20 Potassium was 6.0 redraw was 5.5 he had tented T waves. Discussed patient with Dr. Garcia who stated the patient should be treated as a hypokalemia with glucose insulin calcium gluconate and albuterol. This was completed. Dr. Prince the hospitalist was called and the patient was admitted to telemetry observation. - Vital Signs Vital signs: Temp Pulse Resp BP Pulse Ox 98.8 F 82 18 147/95 H 97 02/19/17 18:52 02/19/17 18:52 02/19/17 18:52 02/19/17 18:52 02/19/17 18:52 - Laboratory Result Diagrams: 02/19/17 10:49 02/19/17 14:55 Laboratory results interpreted by me: 02/19/17 02/19/17 02/19/17 10:49 12:09 14:55 RBC 3.75 L Hgb 10.6 L Hct 31.7 L RDW 15.4 H Monocytes % 13.7 H Potassium 6.0 H* 5.5 H Creatinine 1.33 H 1.26 H Est GFR (Non-Af Amer) 57 L Glucose 214 H 200 H - EKG Interpretation by Me Additional EKG results interpreted by me: 02/19/17 19:21 Elevated T waves Discharge - Discharge Clinical Impression: Hyperkalemia Disposition: ADMITTED OBSERVATION Admitting Provider: Sebastienist - Sures[facility] Unit Admitted: Telemetry
[2017-02-19] MEDS ORDERED: SODIUM POLYSTYRENE SULFONATE 15 GM/60 ML PO ONE (14:15)
[2017-02-19] MEDS ORDERED: DEXTROSE 50%-WATER 25 GM/50 ML DISP.SYRIN IV ONE (14:15)
[2017-02-19] MEDS ORDERED: INSULIN REG, HUMAN 100 UNIT/ML 3 ML VIAL (PYX) IV ONE (14:15)
[2017-02-19] MEDS ORDERED: NORMAL SALINE 1000 ML 1,000 ML IV ONE (14:18)
[2017-02-19] MEDS ORDERED: CALCIUM GLUCONATE 1000 MG/10 ML INJ IV ONE (14:23)
[2017-02-19 15:35] LABS: ANION GAP 12 (5-19); BLOOD UREA NITROGEN 20 mg/dL (7-20); CALCIUM 9.4 mg/dL (8.4-10.2); CARBON DIOXIDE 25 mmol/L (22-30); CHLORIDE 102 mmol/L (98-107); CREATININE RESULT 1.26 mg/dL (0.52-1.25); GLUCOSE 200 mg/dL (75-110); POTASSIUM 5.5 mmol/L (3.6-5.0); SODIUM 138.7 mmol/L (137-145)
[2017-02-19] MEDS: ALBUTEROL SULFATE 0.083% NEB 2.5 MG/3 ML AMPUL NEB SCH ×2 (17:05→17:30)
[2017-02-19] MEDS ORDERED: ACETAMINOPHEN 325 MG TABLET PO PRN (17:47)
[2017-02-19] MEDS ORDERED: ONDANSETRON HCL INJ/PF 4 MG/2 ML SDV IV PRN (17:47)
[2017-02-19] MEDS ORDERED: DEXTROSE 50%-WATER 25 GM/50 ML DISP.SYRIN IV PRN ×2 (17:50)
[2017-02-19] MEDS ORDERED: DEXTROSE 40% GEL 15 GM TUBE PO PRN ×2 (17:50)
[2017-02-19] MEDS ORDERED: GLUCAGON,HUMAN RECOMB 1 MG INJ IM PRN (17:50)
[2017-02-19] MEDS ORDERED: HYDRALAZINE HCL INJ/PF 20 MG/1 ML SDV IV PRN (17:51)
--- NOTE | 2017-02-19 18:35 | PDOC H&P ---
History of Present Illness Admission Date/PCP: 02/19/17 17:45 RA IGNACIO MD Patient complains of: Left foot pain History of Present Illness: MILADYS LONDON III is a 46 year old male with past History of diabetes, hypertension, peripheral vascular disease status post bilateral toe amputations with left foot wound presents for left foot pain. Patient is followed by the wound clinic for wound management of left foot wound following left second and third toe amputation. Patient was incidentally noted to have elevated potassium and peaked T waves on EKG in the emergency department. He is on lisinopril. Patient also states he has had loose stools for the past several days and recently completed a course of clindamycin for his left foot. He denies abdominal pain or fevers. Past Medical History Cardiac Medical History: Reports: Coronary Artery Disease, Myocardial Infarction , Hyperlipidema, Hypertension, Peripheral Vascular Disease, Pulmonary Embolism Pulmonary Medical History: Reports: Chronic Obstructive Pulmonary Disease (COPD) , Pneumonia - 1 year ago EENT Medical History: Reports: None Neurological Medical History: Reports: Seizures - 4 years ago; Depakote stopped by his physician. Endocrine Medical History: Reports: Diabetes Mellitus Type 1, Diabetes Mellitus Type 2 - IDDM Renal/ Medical History: Malignancy Medical History: Reports: None GI Medical History: Reports: Hepatitis Musculoskeltal Medical History: Reports: Arthritis Skin Medical History: Reports: None Psychiatric Medical History: Reports: Bipolar Disorder, Depression, Post Traumatic Stress Disorder Hematology: Reports: Anemia Infectious Medical History: Reports: HIV - Patient reports no detectable viral count, Methicillin-Resistant Staph Aureus Past Surgical History Past Surgical History: Reports: Orthopedic Surgery - right knee replacement, rt toe amputation; amputation 2 left toes., Other - Laser eye surgery Social History Information Source: Patient Lives with: Alone Smoking Status: Current Some Day Smoker Frequency of Alcohol Use: Heavy - 3 beers a day Hx Recreational Drug Use: Yes Drugs: Cocaine, Marijuana Hx Prescription Drug Abuse: No - Advance Directive Resuscitation Status: Full Code Family History Family History: CAD, DM, Hyperlipidemia, Hypertension Parental Family History Reviewed: Yes Children Family History Reviewed: Yes Sibling(s) Family History Reviewed.: Yes Medication/Allergy Home Medications: Aripiprazole [Abilify 20 mg Tablet] 20 mg PO DAILY 01/17/17 Clonidine HCl [Catapres 0.1 mg Tablet] 0.1 mg PO Q12 01/17/17 Emtricitab/Rilpiviri/Tenof Ala [Odefsey Tablet] 1 tab PO DAILY 01/17/17 Hydralazine HCl [Apresoline 50 mg Tablet] 50 mg PO Q8 01/17/17 Lisinopril [Zestril] 5 mg PO QHS 01/17/17 Simvastatin [Zocor 20 mg Tablet] 20 mg PO QHS 01/17/17 Alprazolam [Xanax] 2 mg PO Q12 02/19/17 Fluoxetine HCl [Prozac] 40 mg PO DAILY 02/19/17 Insulin Glargine,Hum.rec.anlog [Lantus Insulin 100 Unit/mL] 45 unit SUBCUT QHS 02/19/17 Oxycodone HCl/Acetaminophen [Percocet 5-325 mg Tablet] 1 tab PO Q4HP PRN Zolpidem Tartrate [Ambien] 15 mg PO HSP PRN 02/19/17 Allergies/Adverse Reactions: Penicillins Allergy (Verified 01/16/17 17:16) rash Review of Systems Constitutional: ABSENT: chills, fever(s), headache(s), weight gain, weight loss Eyes: ABSENT: visual disturbances Ears: ABSENT: hearing changes Cardiovascular: ABSENT: chest pain, dyspnea on exertion, edema, orthropnea, palpitations Respiratory: ABSENT: cough, hemoptysis Gastrointestinal: PRESENT: diarrhea. ABSENT: abdominal pain, constipation, hematemesis, hematochezia, nausea, vomiting Genitourinary: ABSENT: dysuria, hematuria Musculoskeletal: ABSENT: joint swelling Integumentary: ABSENT: rash, wounds Neurological: ABSENT: abnormal gait, abnormal speech, confusion, dizziness, focal weakness, syncope Psychiatric: ABSENT: anxiety, depression, homidical ideation, suicidal ideation Endocrine: ABSENT: cold intolerance, heat intolerance, polydipsia, polyuria Hematologic/Lymphatic: ABSENT: easy bleeding, easy bruising Physical Exam Vital Signs: Temp Pulse Resp BP Pulse Ox 98.2 F 87 16 147/95 H 96 02/19/17 09:51 02/19/17 09:51 02/19/17 17:01 02/19/17 17:01 02/19/17 17:01 PHYSICAL EXAM: GENERAL: Appears well, no acute distress HEENT: Normocephalic, no scleral icterus, conjunctiva clear, EOEM intact, PERRLA , moist mucous membranes NECK: trachea midline, no thyromegally RESPIRATORY: Clear to auscultation, no wheezes/rhonchi CARDIAC: Regular rate and rhythm, no murmur/sebastian/rub ABDOMEN: Soft, no distension, no tenderness, no guarding, normal bowel sounds, negative Isaac sign RECTAL: deferred : deferred EXTREMITIES: No edema, cyanosis, clubbing MUSCULOSKELETAL: No joint swelling or deformity VASCULAR: normal peripheral pulses NEUROLOGIC: Alert, oriented to person/place/time, normal speech, cranial nerves grossly intact, 5/5 strength in all extremities, tactile sensation intact in all extremities SKIN: Wound at surgical site of left second and third toe amputations is clean with no signs of infection PSYCHIATRIC: Normal mood, normal affect Results Laboratory Results: Labs- Last Values WBC 4.3 10^3/uL (4.0-10.5) 02/19/17 10:49 RBC 3.75 10^6/uL (4.35-5.55) L 02/19/17 10:49 Hgb 10.6 g/dL (13.5-17.0) L 02/19/17 10:49 Hct 31.7 % (37.9-51.0) L 02/19/17 10:49 MCV 85 fl (80-97) 02/19/17 10:49 MCH 28.2 pg (27.0-33.4) 02/19/17 10:49 MCHC 33.3 g/dL (32.0-36.0) 02/19/17 10:49 RDW 15.4 % (11.5-14.0) H 02/19/17 10:49 Plt Count 393 10^3/uL (150-450) 02/19/17 10:49 Seg Neutrophils % 56.8 % (42-78) 02/19/17 10:49 Lymphocytes % 24.2 % (13-45) 02/19/17 10:49 Monocytes % 13.7 % (3-13) H 02/19/17 10:49 Eosinophils % 3.7 % (0-6) 02/19/17 10:49 Basophils % 1.6 % (0-2) 02/19/17 10:49 Absolute Neutrophils 2.4 10^3/uL (1.7-8.2) 02/19/17 10:49 Absolute Lymphocytes 1.0 10^3/uL (0.5-4.7) 02/19/17 10:49 Absolute Monocytes 0.6 10^3/uL (0.1-1.4) 02/19/17 10:49 Absolute Eosinophils 0.2 10^3/uL (0.0-0.6) 02/19/17 10:49 Absolute Basophils 0.1 10^3/uL (0.0-0.2) 02/19/17 10:49 Sodium 138.7 mmol/L (137-145) 02/19/17 14:55 Potassium 5.5 mmol/L (3.6-5.0) H 02/19/17 14:55 Chloride 102 mmol/L (98-107) 02/19/17 14:55 Carbon Dioxide 25 mmol/L (22-30) 02/19/17 14:55 Anion Gap 12 (5-19) 02/19/17 14:55 BUN 20 mg/dL (7-20) 02/19/17 14:55 Creatinine 1.26 mg/dL (0.52-1.25) H 02/19/17 14:55 Est GFR ( Amer) > 60 (>60) 02/19/17 14:55 Est GFR (Non-Af Amer) > 60 (>60) 02/19/17 14:55 Glucose 200 mg/dL (75-110) H 02/19/17 14:55 Lactic Acid 1.1 mmol/L (0.7-2.1) 02/19/17 10:49 Calcium 9.4 mg/dL (8.4-10.2) 02/19/17 14:55 Magnesium 1.8 mg/dL (1.6-2.3) 02/19/17 12:09 Impressions: Foot X-Ray 02/19/17 10:06 IMPRESSION: 1. PRESUMED RECENT AMPUTATION OF THE HEAD OF THE 2ND METATARSAL, NOT PRESENT ON THE PRIOR STUDY DATED 01/17/2017. NEED CORRELATION WITH HISTORY OF ANY RECENT SURGERY. 2. EROSIVE CHANGES INVOLVING THE HEAD OF THE 3RD METATARSAL, CONCERNING FOR OSTEOMYELITIS. 3. CHRONIC CHANGES IN THE GREAT TOE WITH BUNION DEFORMITY AND HALLUX VALGUS. Assessment & Plan - Diagnosis (1) Hyperkalemia Is this a current diagnosis for this admission?: YesPlan: Placed patient in observation status on environmental monitoring technician. Patient has been administered Lasix, Kayexalate in the emergency department. Discontinue lisinopril. Repeat potassium level and EKG in the morning. (2) Diarrhea Is this a current diagnosis for this admission?: YesPlan: Check stool for C. difficile given recent clindamycin use. (3) Coronary artery disease Qualifiers: Coronary Disease-Associated Artery/Lesion type: [place] artery [place] vs. transplanted heart: [place] heart Associated angina: without angina Qualified Code(s): I25.10 - Atherosclerotic heart disease of [place] coronary artery without angina pectoris Is this a current diagnosis for this admission?: Yes (4) Diabetes Qualifiers: Diabetes mellitus type: type 2 Diabetes mellitus complication detail: with peripheral angiopathy with gangrene Diabetes mellitus termite exterminator insulin use: unspecified termite exterminator insulin use status Is this a current diagnosis for this admission?: YesPlan: Sliding scale insulin coverage. Verify home medications and resume. (5) Peripheral vascular disease Is this a current diagnosis for this admission?: Yes (6) CKD (chronic kidney disease), stage III Is this a current diagnosis for this admission?: Yes (7) Hypertension Qualifiers: Hypertension type: essential hypertension Qualified Code(s): I10 - Essential (primary) hypertension Is this a current diagnosis for this admission?: YesPlan: Discontinue lisinopril secondary to hyperkalemia. When necessary IV hydralazine. - Time Time Spent: 50 to 70 Minutes
--- NOTE | 2017-02-19 19:56 | EKG REPORT ---
SEVERITY:- NORMAL ECG - SINUS RHYTHM : Confirmed by: Wesley Zamora MD 19-Feb-2017 19:54:53
[2017-02-19] MEDS: OXYCODONE HCL IR 5 MG TABLET PO PRN (20:26)
[2017-02-19] MEDS: INSULIN LISPRO 100 UNIT/ML 3 ML VIAL SUBCUT PRN (21:29)
[2017-02-20 06:11] LABS: ANION GAP 12 (5-19); BLOOD UREA NITROGEN 19 mg/dL (7-20); CALCIUM 9.6 mg/dL (8.4-10.2); CARBON DIOXIDE 24 mmol/L (22-30); CHLORIDE 102 mmol/L (98-107); CREATININE RESULT 1.22 mg/dL (0.52-1.25); GLUCOSE 317 mg/dL (75-110); SODIUM 138.1 mmol/L (137-145)
[2017-02-20] MEDS: OXYCODONE HCL IR 5 MG TABLET PO PRN (06:23)
[2017-02-20] MEDS: INSULIN LISPRO 100 UNIT/ML 3 ML VIAL SUBCUT PRN ×2 (06:23→12:01)
--- NOTE | 2017-02-20 07:41 | EKG REPORT ---
SEVERITY:- ABNORMAL ECG - SINUS RHYTHM ABNRM R PROG, CONSIDER ASMI OR LEAD PLACEMENT : Confirmed by: Wesley Zamora MD 20-Feb-2017 07:40:15
[2017-02-20] MEDS ORDERED: ENOXAPARIN SODIUM INJ 40 MG/0.4 ML DISP.SYRIN SUBCUT SCH (08:00)
--- NOTE | 2017-02-20 09:45 | Operative Report ---
Operative Report DATE OF SURGERY: 02/20/17 PREOPERATIVE DIAGNOSIS: Open left foot wound; exposed left third metatarsal head POSTOPERATIVE DIAGNOSIS: Same OPERATION: Mechanical debridement of left third metatarsal head SURGEON: ANTONIO JOHNSON ANESTHESIA: Other - none as patient's foot was sensory impaired TISSUE REMOVED OR ALTERED: Nonviable metatarsal head COMPLICATIONS: None ESTIMATED BLOOD LOSS: 5 mL INTRAOPERATIVE FINDINGS: See below PROCEDURE: Informed consent was provided The left foot was exposed at bedside. The foot is significant for the operative loss of toes 2 and 3 with a large V-shaped open wound granulating primarily on the dorsum of the foot extending to the plantar surface anteriorly. Third metatarsal head including cartilage was exposed within the granulation tissue. The graft using bone rongeurs, the metatarsal head was removed. Granulation tissue was clean; no foul smell or drainage from the foot. No indication for further debridement at this time. Toes 1, 4 and 5 remained viable. Dressing applied including 4 x 4 Curlex. Discharge instructions provided to nursing and primary care staff.
[2017-02-20] MEDS ORDERED: HYDROMORPHONE HCL INJ/PF 2 MG/ML AMPULE IV ONE (10:30)
[2017-02-20 13:20] VITALS: BP 147/97
--- NOTE | 2017-02-20 13:55 | PDOC DISCHARGE SUMMARY ---
General - Admit/Disc Date/PCP Admission Date/Primary Care Provider: 02/19/17 17:45 RA IGNACIO MD Discharge Date: 02/20/17 - Discharge Diagnosis (1) Hyperkalemia Is this a current diagnosis for this admission?: YesSummary: [place] to be secondary to his chronic renal failure along with an CARLEEN inhibitor. His lisinopril was stopped and he was given Kayexalate. The hypokalemia has resolved. (2) Coronary artery disease Is this a current diagnosis for this admission?: Yes (3) Diabetes Is this a current diagnosis for this admission?: Yes (4) Peripheral vascular disease Is this a current diagnosis for this admission?: Yes (5) CKD (chronic kidney disease), stage III Is this a current diagnosis for this admission?: Yes (6) Diabetic infection of left foot Is this a current diagnosis for this admission?: YesSummary: Patient has previously been treated for infection of the left foot. The patient was seen by surgery who debrided the open wound from his amputation. There is no evidence for any active infection and he is to continue with the wound VAC - Additional Information Resuscitation Status: Full Code Discharge Diet: Cardiac, Diabetic Discharge Activity: Activity As Tolerated Home Medications: Aripiprazole [Abilify 20 mg Tablet] 20 mg PO DAILY 01/17/17 Clonidine HCl [Catapres 0.1 mg Tablet] 0.1 mg PO Q12 01/17/17 Emtricitab/Rilpiviri/Tenof Ala [Odefsey Tablet] 1 tab PO DAILY 01/17/17 Hydralazine HCl [Apresoline 50 mg Tablet] 50 mg PO Q8 01/17/17 Simvastatin [Zocor 20 mg Tablet] 20 mg PO QHS 01/17/17 Alprazolam [Xanax] 2 mg PO Q12 02/19/17 Fluoxetine HCl [Prozac] 40 mg PO DAILY 02/19/17 Insulin Glargine,Hum.rec.anlog [Lantus Insulin 100 Unit/mL] 45 unit SUBCUT QHS 02/19/17 Zolpidem Tartrate [Ambien] 15 mg PO HSP PRN 02/19/17 Oxycodone HCl/Acetaminophen [Percocet 5-325 mg Tablet] 1 tab PO Q4HP PRN #20 tablet 02/20/17 History of Present Illness History of Present Illness: MILADYS LONDON III is a 46 year old male with a history of hypertension, diabetes and peripheral vascular disease who is status post dilatations on the left foot. He presented with foot pain. He has been followed at the wound clinic for a slow to heal wound. Patient has had his left second and third toe amputated. The patient was found to have an elevated potassium in the emergency room and he is on lisinopril. Patient is admitted for treatment of his hyperkalemia. Hospital Course Hospital Course: 38-year-old male with cough give past medical history presented with foot pain but was found to have an elevated potassium. The patient had been on lisinopril which was stopped. He also was given Kayexalate and had improvement in his potassium. Was felt that his high potassium was secondary to his carleen inhibitors. Patient also has had problems with foot pain. He had had a recent amputation of the left second and third toes. The patient has been using a wound VAC at home but came into the emergency room without the wound VAC on. General surgery was consulted who debrided the wound and felt there is no evidence for antibiotics at this time as it did not appear to be infected. He was instructed to go home and have his wound VAC replaced. Physical Exam Vital Signs: Temp Pulse Resp BP Pulse Ox 97.7 F 91 18 147/97 H 98 02/20/17 10:00 02/20/17 10:00 02/20/17 10:00 02/20/17 10:00 02/20/17 10:00 Intake & Output 02/19/17 02/20/17 02/21/17 06:59 06:59 06:59 Intake Total 2160 Output Total 1100 Balance 1060 Weight 112.5 kg General appearance: PRESENT: no acute distress Eye exam: PRESENT: conjunctiva pink. ABSENT: scleral icterus Mouth exam: PRESENT: moist, tongue midline Neck exam: ABSENT: JVD Respiratory exam: PRESENT: clear to auscultation vanessa. ABSENT: rales, rhonchi, wheezes Cardiovascular exam: PRESENT: RRR. ABSENT: diastolic murmur, rubs, systolic murmur GI/Abdominal exam: PRESENT: normal bowel sounds, soft. ABSENT: distended, guarding, mass, organolmegaly, rebound, tenderness Extremities exam: PRESENT: other - Open wound in the second third metatarsal area. Good granulation tissue present.. ABSENT: calf tenderness, clubbing, pedal edema Neurological exam: PRESENT: alert, awake, oriented to person, oriented to place , oriented to time, oriented to situation, CN II-XII grossly intact. ABSENT: motor sensory deficit Psychiatric exam: PRESENT: appropriate affect Skin exam: PRESENT: other - Left third and fourth metatarsal area with good granulation tissue present in the wound. Results Laboratory Results: 02/20/17 05:26 02/20/17 05:26 Sodium 138.1 Potassium 5.0 Chloride 102 Carbon Dioxide 24 Anion Gap 12 BUN 19 Creatinine 1.22 Est GFR ( Amer) > 60 Est GFR (Non-Af Amer) > 60 Glucose 317 H Calcium 9.6 Impressions: Foot X-Ray 02/19/17 10:06 IMPRESSION: 1. PRESUMED RECENT AMPUTATION OF THE HEAD OF THE 2ND METATARSAL, NOT PRESENT ON THE PRIOR STUDY DATED 01/17/2017. NEED CORRELATION WITH HISTORY OF ANY RECENT SURGERY. 2. EROSIVE CHANGES INVOLVING THE HEAD OF THE 3RD METATARSAL, CONCERNING FOR OSTEOMYELITIS. 3. CHRONIC CHANGES IN THE GREAT TOE WITH BUNION DEFORMITY AND HALLUX VALGUS. Qualifiers PATEINT BEING DISCHARGED WITH ANY OF THE FOLLOWING DIAGNOSIS?: No Plan Discharge Plan: Patient is discharged to home. Will follow with primary care in 1 week. Patient is to have home health for replacement of his wound VAC as scheduled before. Patient will continue to follow up with the wound clinic. Time Spent: Less than 30 Minutes
--- NOTE | 2017-03-03 13:34 | OPERATIVE REPORT E ---
Operative Report NAME: MILADYS LONDON : 1970 AGE: 46Y DATE OF SURGERY: 02/20/2017 ROOM: 430 ADDENDUM: The amount of tissue excised from the third metatarsal head was approximately 1 x 1 x 1 cm, including cartilage and bone from the third metatarsal. DICTATING PHYSICIAN: ANTONIO JOHNSON M.D. [id number] PHY#: [id number] ID: [id number] JOB#: [id number] ACCT: [id number] cc:ANTONIO JOHNSON M.D. >
== END 2017-02-20 16:10 | disposition home health service (06) ==
LOC: ER 09:49 → EH 17:45 → 4S 20:14
PROVIDERS: ADMIT Family Medicine; ATTEND Family Medicine
PROC: 0QBP0ZZ Excision of Left Metatarsal, Open Approach (ICD-10-PCS; principal; 2017-02-20)
DX: E87.5 Hyperkalemia (principal); I25.10 Atherosclerotic heart disease of native coronary artery without angina pectoris; E11.22 Type 2 diabetes mellitus with diabetic chronic kidney disease; N18.3 Chronic kidney disease, stage 3 (moderate); I12.9 Hypertensive chronic kidney disease with stage 1 through stage 4 chronic kidney disease, or unspecified chronic kidney disease; I73.9 Peripheral vascular disease, unspecified; E11.52 Type 2 diabetes mellitus with diabetic peripheral angiopathy with gangrene; B20 Human immunodeficiency virus [HIV] disease; R19.7 Diarrhea, unspecified; F17.200 Nicotine dependence, unspecified, uncomplicated; M20.12 Hallux valgus (acquired), left foot; M21.612 Bunion of left foot; Z89.422 Acquired absence of other left toe(s); Z79.899 Other long term (current) drug therapy; Z86.14 Personal history of Methicillin resistant Staphylococcus aureus infection; Z89.421 Acquired absence of other right toe(s); Z96.651 Presence of right artificial knee joint; Z82.49 Family history of ischemic heart disease and other diseases of the circulatory system; E11.628 Type 2 diabetes mellitus with other skin complications; Z79.4 Long term (current) use of insulin
CPT/HCPCS: 11044; 93005 ×2; 94640; 99285; 96375; 96365; 96366; 36415 ×2; 87040; 82962 ×2; 83735; 85025; 80048 ×2; 83605; 73630; 93010 ×2; G0378 ×2; J0610; J3490; A9270 ×7; J1170; J7030; J1815

== ENCOUNTER 2017-03-06 17:10 | Inpatient (IN) | payer MEDICARE, MEDICAID ==
[2017-03-06] MEDS ORDERED: ASPIRIN 81 MG TABLET, CHEWABLE PO ONE (17:59)
--- NOTE | 2017-03-06 18:09 | ER Document Report ---
ED General - General Stated Complaint: CHEST PAIN Mode of Arrival: Medic Information source: Patient, Emergency Med Personnel, [facility] Records Notes: This is a 46-year-old male with multiple medical problems to include diabetes, hypertension, peripheral vascular disease, HIV positive, and prior NE along with cocaine abuse who presents for evaluation of chest pain. Patient states that his last cocaine abuse was one week ago. He states that his chest pain began at rest last night at about 1800 as a sharp stabbing substernal chest pain that progressed to pressure and feeling "like someone was sitting on my chest". He states that he had some shortness of breath as well as nausea but no diaphoresis. The pain has radiated down his left upper extremity. And into his back. The pain lasted for a few hours last night but recurred today at about noon. He states the pain has been off and on since currently he has no chest pain. He also states that his legs feel weak and he has been having difficulty walking today. TRAVEL OUTSIDE OF THE [place] IN LAST 30 DAYS: No - Related Data Allergies/Adverse Reactions: Penicillins Allergy (Verified 03/06/17 18:04) rash Past Medical History - General Information source: Patient, [facility] Records - Social History Smoking Status: Current Every Day Smoker Frequency of alcohol use: Heavy Drug Abuse: Cocaine, Marijuana Family History: CAD, DM, Hyperlipidemia, Hypertension - Past Medical History Cardiac Medical History: Reports: Hx Coronary Artery Disease, Hx Heart Attack, Hx Hypercholesterolemia, Hx Hypertension, Hx Peripheral Vascular Disease, Hx Pulmonary Embolism Pulmonary Medical History: Reports: Hx COPD, Hx Pneumonia - 1 year ago Neurological Medical History: Reports: Hx Seizures - 4 years ago; Depakote stopped by his physician. Endocrine Medical History: Reports: Hx Diabetes Mellitus Type 1, Hx Diabetes Mellitus Type 2 - IDDM Renal/ Medical History: Reports: Hx Renal Insufficiency - Stage III renal failure. Denies: Hx Peritoneal Dialysis Malignancy Medical History: GI Medical History: Reports: Hx Hepatitis Musculoskeltal Medical History: Reports Hx Arthritis, Reports Hx Musculoskeletal Trauma Skin Medical History: Psychiatric Medical History: Reports: Hx Anxiety, Hx Bipolar Disorder, Hx Depression, Hx Post Traumatic Stress Disorder Traumatic Medical History: Reports: Hx Fractures - Knee pelvis and hand Infectious Medical History: Reports: Hx Hepatitis, Hx HIV - Patient reports no detectable viral count, Hx MRSA Past Surgical History: Reports: Hx Oral Surgery - Removal of most of teeth, Hx Orthopedic Surgery - right knee replacement, rt toe amputation; amputation 2 left toes., Other - Laser eye surgery - Immunizations Immunizations up to date: Yes Hx Diphtheria, Pertussis, Tetanus Vaccination: Yes Hx Pneumococcal Vaccination: 11/09/13 Review of Systems - Review of Systems Notes: REVIEW OF SYSTEMS: CONSTITUTIONAL : Denies fever, chills, or sweats. Denies recent illness. EENT: Denies eye, ear, throat, or mouth pain or symptoms. Denies nasal or sinus congestion. CARDIOVASCULAR: As per history of present illness RESPIRATORY: Denies cough, cold, or chest congestion. GASTROINTESTINAL: Denies abdominal pain. GENITOURINARY: Denies difficulty urinating, painful urination, burning, frequency, or blood in urine. MUSCULOSKELETAL: Denies neck or back pain or joint pain or swelling. SKIN: Denies rash or skin lesions. HEMATOLOGIC : Denies easy bruising or bleeding. LYMPHATIC: Denies swollen, enlarged glands. NEUROLOGICAL: Denies altered mental status or loss of consciousness. Denies headache. PSYCHIATRIC: Denies anxiety or stress or depression. ALL OTHER SYSTEMS REVIEWED AND NEGATIVE. Physical Exam - Vital signs Vitals: Temp Pulse Resp BP Pulse Ox 98.0 F 80 22 H 146/90 H 96 03/06/17 17:17 03/06/17 17:17 03/06/17 17:17 03/06/17 17:17 03/06/17 17:17 - Notes Notes: PHYSICAL EXAMINATION: GENERAL: Well-appearing, well-nourished and in no acute distress, although appears worried. Pleasant and conversant HEAD: Atraumatic, normocephalic. EYES: Pupils equal round and reactive to light, extraocular movements intact, sclera anicteric, conjunctiva are normal. ENT: nares patent, oropharynx clear without exudates. Moist mucous membranes. NECK: Normal range of motion, supple without lymphadenopathy LUNGS: Breath sounds clear to auscultation bilaterally and equal. No wheezes rales or rhonchi. HEART: Regular rate and rhythm without murmurs ABDOMEN: Soft, nontender, normoactive bowel sounds. No guarding, no rebound. No masses appreciated. EXTREMITIES: Normal range of motion, no pitting or edema. Wound vac noted to chronic wound L foot. NEUROLOGICAL: Cranial nerves grossly intact. Normal speech. Dorsiflexion and plantar flexion intact bilateral lower extremities although patient states they feel weak. He is able to hold his legs up at 15 for more than 10 seconds. Sensation intact. PSYCH: Normal mood, normal affect. SKIN: Warm, Dry, normal turgor Course - Re-evaluation Re-evalutation: 03/06/17 20:15 Initial chemistry was hemolyzed and had to be redrawn. Resultant redraw demonstrates potassium of 8.6. At this point hyperkalemia treatment protocol is being initiated to include IV dextrose, insulin, Lasix, albuterol neb and Kayexalate. 03/06/17 21:44 Discussed with the hospitalist Dr. Rosa regarding admission. At this time, after discussing the case, the decision is to monitor further in the ER to ensure that the potassium is improving, given the fact that we do not have Nephrology services at this hospital over the weekend. 03/06/17 23:54 Potassium has come down to 7.5. Patient is urinating. At this point will admit to the IMCU, Dr. Rosa. - Vital Signs Vital signs: Temp Pulse Resp BP Pulse Ox 98.0 F 80 26 H 146/90 H 96 03/06/17 17:17 03/06/17 17:17 03/06/17 18:00 03/06/17 17:17 03/06/17 18:05 - Laboratory Result Diagrams: 03/06/17 18:05 03/06/17 23:10 Laboratory results interpreted by me: 03/06/17 03/06/17 03/06/17 18:05 19:24 21:29 RBC 3.98 L Hgb 11.0 L Hct 34.3 L RDW 15.5 H Potassium 8.6 H* 7.7 H* Chloride 109 H Carbon Dioxide 19 L BUN 27 H 26 H Creatinine 2.35 H 2.22 H Est GFR ( Amer) 36 L 38 L Est GFR (Non-Af Amer) 30 L 32 L Glucose 63 L 273 H Calcium AST 63 H Creatine Kinase 2321 H Total Protein 9.0 H 03/06/17 23:10 RBC Hgb Hct RDW Potassium 7.5 H* Chloride 108 H Carbon Dioxide 17 L BUN 27 H Creatinine 2.31 H Est GFR ( Amer) 37 L Est GFR (Non-Af Amer) 30 L Glucose 70 L Calcium 11.0 H AST Creatine Kinase Total Protein - Diagnostic Test Radiology reviewed: Reports reviewed - Chest x-ray with no acute finding - EKG Interpretation by Me Additional EKG results interpreted by me: 03/06/17 23:46 EKG at 1723 demonstrates NSR , rate 79. QRS interval wnl. There are peaked t waves noted. No ST segment elevation or depression. Critical Care Note - Critical Care Note Total time excluding time spent on procedures (mins): 50 - minutes of critical care time spent in direct contact evaluating and reevaluating the patient, treating symptoms, reviewing labs and studies and speaking with family and consultants excluding any procedures Discharge - Discharge Clinical Impression: Acute hyperkalemia Chest pain Qualifiers: Chest pain type: unspecified Qualified Code(s): R07.9 - Chest pain, unspecified Condition: Serious Disposition: ADMITTED INPATIENT Admitting Provider: Hospitalist - Dr Rosa Unit Admitted: IMCU Referrals: RA IGNACIO MD [Primary Care Provider] - Follow up as needed
[2017-03-06 18:24] LABS: ABSOLUTE EOSINOPHILS # (AUTO) 0.1 10^3/uL (0.0-0.6); ABSOLUTE LYMPHOCYTES (AUTO) 1.6 10^3/uL (0.5-4.7); ABSOLUTE MONOCYTES (AUTO) 0.6 10^3/uL (0.1-1.4); ABSOLUTE NEUT (AUTO) 2.6 10^3/uL (1.7-8.2); BASOPHILS % (AUTO) 0.8 % (0-2); EOSINOPHILS % (AUTO) 2.9 % (0-6); HEMATOCRIT 34.3 % (37.9-51.0); HGB HCT DIFFERENCE -1.3; LYMPHOCYTES % (AUTO) 31.9 % (13-45); MEAN CORPUSCULAR HEMOGLOBIN 27.6 pg (27.0-33.4); MEAN CORPUSCULAR HGB CONC 32.1 g/dL (32.0-36.0); MEAN CORPUSCULAR VOLUME 86 fl (80-97); MONOCYTES % (AUTO) 12.1 % (3-13); RED BLOOD COUNT 3.98 10^6/uL (4.35-5.55); RED CELL DISTRIBUTION WIDTH 15.5 % (11.5-14.0); SEGMENTED NEUTROPHILS % (AUTO) 52.3 % (42-78); WHITE BLOOD COUNT 4.9 10^3/uL (4.0-10.5)
[2017-03-06 18:37] LABS: PROTHROMBIN TIME 13.5 SEC (11.4-15.4)
--- NOTE | 2017-03-06 19:39 | EKG REPORT ---
SEVERITY:- NORMAL ECG - SINUS RHYTHM : Confirmed by: Mulu Wooten 06-Mar-2017 19:38:58
[2017-03-06 19:49] LABS: ALANINE AMINOTRANSFERASE 45 U/L (21-72); ALBUMIN 4.7 g/dL (3.5-5.0); ALKALINE PHOSPHATASE 92 U/L (38-126); ANION GAP 11 (5-19); ASPARTATE AMINO TRANSFERASE 63 U/L (17-59); BILIRUBIN,DIRECT 0.4 mg/dL (0.0-0.4); BILIRUBIN,TOTAL 0.5 mg/dL (0.2-1.3); BLOOD UREA NITROGEN 27 mg/dL (7-20); CALCIUM 9.7 mg/dL (8.4-10.2); CARBON DIOXIDE 22 mmol/L (22-30); CHLORIDE 109 mmol/L (98-107); CREATININE RESULT 2.35 mg/dL (0.52-1.25); GLUCOSE 63 mg/dL (75-110); SODIUM 141.7 mmol/L (137-145)
[2017-03-06 19:55] LABS: CREATINE KINASE 2321 U/L (55-170)
[2017-03-06 19:59] LABS: CREATINE KINASE MB 3.11 ng/mL (<4.55); POTASSIUM 8.6 mmol/L (3.6-5.0); TROPONIN I < 0.012 ng/mL
[2017-03-06] MEDS ORDERED: ALBUTEROL SULFATE 0.083% NEB 2.5 MG/3 ML AMPUL NEB ONE (20:06)
[2017-03-06] MEDS ORDERED: CALCIUM GLUCONATE 1000 MG/10 ML INJ IV ONE (20:07)
[2017-03-06] MEDS ORDERED: INSULIN REG, HUMAN 100 UNIT/ML 3 ML VIAL (PYX) IV ONE (20:07)
[2017-03-06] MEDS ORDERED: DEXTROSE 50%-WATER 25 GM/50 ML DISP.SYRIN IV ONE ×2 (20:07→20:08)
[2017-03-06] MEDS ORDERED: FUROSEMIDE INJ/PF 20 MG/2 ML SDV IV ONE (20:07)
[2017-03-06] MEDS ORDERED: SODIUM POLYSTYRENE SULFONATE 15 GM/60 ML PO ONE (20:17)
[2017-03-06 22:25] LABS: ALANINE AMINOTRANSFERASE 40 U/L (21-72); ALBUMIN 4.3 g/dL (3.5-5.0); ALKALINE PHOSPHATASE 84 U/L (38-126); ANION GAP 13 (5-19); ASPARTATE AMINO TRANSFERASE 57 U/L (17-59); BILIRUBIN,DIRECT 0.2 mg/dL (0.0-0.4); BILIRUBIN,TOTAL 0.3 mg/dL (0.2-1.3); BLOOD UREA NITROGEN 26 mg/dL (7-20); CALCIUM 9.2 mg/dL (8.4-10.2); CARBON DIOXIDE 19 mmol/L (22-30); CHLORIDE 106 mmol/L (98-107); CREATININE RESULT 2.22 mg/dL (0.52-1.25); GLUCOSE 273 mg/dL (75-110); SODIUM 137.6 mmol/L (137-145); TOTAL PROTEIN 7.9 g/dL (6.3-8.2)
[2017-03-06 22:31] LABS: POTASSIUM 7.7 mmol/L (3.6-5.0)
[2017-03-06] MEDS ORDERED: NORMAL SALINE 1000 ML 1,000 ML IV ONE (22:44)
[2017-03-06] MEDS ORDERED: ACETAMINOPHEN 325 MG TABLET PO PRN (23:32)
[2017-03-06] MEDS ORDERED: LACTULOSE SYRUP 20 GM/30 ML UDCUP PO ONE (23:32)
[2017-03-06] MEDS ORDERED: DEXTROSE 40% GEL 15 GM TUBE PO PRN ×2 (23:38)
[2017-03-06] MEDS ORDERED: GLUCAGON,HUMAN RECOMB 1 MG INJ IM PRN (23:38)
[2017-03-06] MEDS ORDERED: DEXTROSE 50%-WATER 25 GM/50 ML DISP.SYRIN IV PRN ×2 (23:38)
[2017-03-06] MEDS ORDERED: DIAZEPAM 5 MG TABLET PO PRN (23:39)
[2017-03-06 23:40] LABS: ANION GAP 19 (5-19); BLOOD UREA NITROGEN 27 mg/dL (7-20); CARBON DIOXIDE 17 mmol/L (22-30); CHLORIDE 108 mmol/L (98-107); CREATININE RESULT 2.31 mg/dL (0.52-1.25); GLUCOSE 70 mg/dL (75-110); SODIUM 144.2 mmol/L (137-145)
[2017-03-06] MEDS ORDERED: ZOLPIDEM TARTRATE 5 MG TABLET PO PRN (23:45)
[2017-03-06] MEDS ORDERED: CLONIDINE HCL 0.1 MG TABLET PO ONE (23:45)
[2017-03-06] MEDS ORDERED: NORMAL SALINE 1000 ML 1,000 ML IV SCH (23:45)
[2017-03-06 23:46] LABS: POTASSIUM 7.5 mmol/L (3.6-5.0)
[2017-03-07 00:14] LABS: APPEARANCE,URINE CLEAR; BILIRUBIN,URINE NEGATIVE (NEGATIVE); GLUCOSE, URINE 50 mg/dL (NEGATIVE); KETONES,URINE NEGATIVE (NEGATIVE); LEUKOCYTE ESTERASE,URINE NEGATIVE (NEGATIVE); NITRITE,URINE NEGATIVE (NEGATIVE); PROTEIN,URINE 100 mg/dL (NEGATIVE); URINE SPECIFIC GRAVITY 1.019; UROBILINOGEN,URINE NEGATIVE mg/dL (<2.0)
[2017-03-07 00:27] LABS: URINE BARBITURATES SCREEN NEGATIVE; URINE METHADONE SCREEN NEGATIVE; URINE OPIATES LOW NEGATIVE; URINE PHENCYCLIDINE SCREEN NEGATIVE
[2017-03-07] MEDS: IPRATROPIUM/ALBUTEROL 0.5-2.5 MG/3 ML AMPUL NEB SCH ×3 (00:51→09:11)
[2017-03-07] MEDS ORDERED: HYDRALAZINE HCL INJ/PF 20 MG/1 ML SDV IV PRN (03:16)
--- NOTE | 2017-03-07 04:33 | PDOC H&P ---
History of Present Illness Admission Date/PCP: 03/06/17 23:32 RA IGNACIO MD Patient complains of: Chest pain History of Present Illness: MILADYS LONDON III is a 46 year old male with a past medical history of HIV, hypertension, peripheral vascular disease, status post bilateral toe amputations and left foot wound with wound VAC, chest pain syndrome persistent cocaine abuse presents with approximately 24 hours of muscle cramps, chest pain. Patient describes his pain is retrosternal 5 out of 5 including shortness of breath nausea without vomiting diaphoresis following cocaine inhalation. Patient states he takes all of his medications as indicated but does not know the names, doses or frequency of multiple medications. Since workup is notable for a potassium of 8.6, rhabdomyolysis, acute renal failure, and again cocaine positive for the seventh consecutive evaluation. Past Medical History Cardiac Medical History: Reports: Coronary Artery Disease, Myocardial Infarction , Hyperlipidema, Hypertension, Peripheral Vascular Disease, Pulmonary Embolism Pulmonary Medical History: Reports: Chronic Obstructive Pulmonary Disease (COPD) , Pneumonia - 1 year ago Neurological Medical History: Reports: Seizures - 4 years ago; Depakote stopped by his physician. Endocrine Medical History: Reports: Diabetes Mellitus Type 1, Diabetes Mellitus Type 2 - IDDM Renal/ Medical History: Malignancy Medical History: GI Medical History: Reports: Hepatitis Musculoskeltal Medical History: Reports: Arthritis Psychiatric Medical History: Reports: Bipolar Disorder, Depression, Post Traumatic Stress Disorder Hematology: Reports: Anemia Infectious Medical History: Reports: HIV - Patient reports no detectable viral count, Methicillin-Resistant Staph Aureus Past Surgical History Past Surgical History: Reports: Orthopedic Surgery - right knee replacement, rt toe amputation; amputation 2 left toes., Other - Laser eye surgery Social History Smoking Status: Current Every Day Smoker Frequency of Alcohol Use: Heavy - 3 beers a day Hx Recreational Drug Use: Yes Drugs: Cocaine - Positive cocaine on consecutive evaluations, Marijuana Hx Prescription Drug Abuse: No - Advance Directive Resuscitation Status: Full Code Family History Family History: CAD, COPD, DM, Hyperlipidemia, Hypertension Parental Family History Reviewed: Yes Children Family History Reviewed: Yes Sibling(s) Family History Reviewed.: Yes Medication/Allergy Home Medications: Aripiprazole [Abilify 20 mg Tablet] 20 mg PO DAILY 01/17/17 Clonidine HCl [Catapres 0.1 mg Tablet] 0.1 mg PO Q12 01/17/17 Emtricitab/Rilpiviri/Tenof Ala [Odefsey Tablet] 1 tab PO DAILY 01/17/17 Hydralazine HCl [Apresoline 50 mg Tablet] 50 mg PO Q8 01/17/17 Simvastatin [Zocor 20 mg Tablet] 20 mg PO QHS 01/17/17 Alprazolam [Xanax] 2 mg PO Q12 02/19/17 Fluoxetine HCl [Prozac] 40 mg PO DAILY 02/19/17 Insulin Glargine,Hum.rec.anlog [Lantus Insulin 100 Unit/mL] 45 unit SUBCUT QHS 02/19/17 Zolpidem Tartrate [Ambien] 15 mg PO HSP PRN 02/19/17 Oxycodone HCl/Acetaminophen [Percocet 5-325 mg Tablet] 1 tab PO Q4HP PRN #20 tablet 02/20/17 Allergies/Adverse Reactions: Penicillins Allergy (Verified 03/06/17 18:04) rash Review of Systems ROS unobtainable: Due to mental status, Other - Patient's stated review of systems is felt to be unreliable answering affirmatively to all questions Constitutional: ABSENT: chills, fever(s), headache(s), weight gain, weight loss Eyes: ABSENT: visual disturbances Ears: ABSENT: hearing changes Cardiovascular: ABSENT: chest pain, dyspnea on exertion, edema, orthropnea, palpitations Respiratory: ABSENT: cough, hemoptysis Gastrointestinal: ABSENT: abdominal pain, constipation, diarrhea, hematemesis, hematochezia, nausea, vomiting Genitourinary: ABSENT: dysuria, hematuria Musculoskeletal: ABSENT: joint swelling Integumentary: ABSENT: rash, wounds Neurological: ABSENT: abnormal gait, abnormal speech, confusion, dizziness, focal weakness, syncope Psychiatric: ABSENT: anxiety, depression, homidical ideation, suicidal ideation Endocrine: ABSENT: cold intolerance, heat intolerance, polydipsia, polyuria Hematologic/Lymphatic: ABSENT: easy bleeding, easy bruising Physical Exam Vital Signs: Temp Pulse Resp BP Pulse Ox 98.0 F 77 18 141/115 H 94 03/06/17 17:17 03/07/17 02:48 03/07/17 03:01 03/07/17 03:00 03/07/17 03:01 General appearance: PRESENT: no acute distress, cooperative, obese Head exam: PRESENT: atraumatic, normocephalic Eye exam: PRESENT: conjunctiva pink, EOMI, PERRLA. ABSENT: scleral icterus Ear exam: PRESENT: normal external ear exam Mouth exam: PRESENT: moist, tongue midline Neck exam: ABSENT: carotid bruit, JVD, lymphadenopathy, thyromegaly Respiratory exam: PRESENT: clear to auscultation vanessa, crackles, symmetrical, unlabored. ABSENT: rales, rhonchi, wheezes Cardiovascular exam: PRESENT: RRR. ABSENT: diastolic murmur, rubs, systolic murmur Pulses: PRESENT: normal dorsalis pedis pul Vascular exam: PRESENT: normal capillary refill GI/Abdominal exam: PRESENT: normal bowel sounds, soft. ABSENT: distended, guarding, mass, organolmegaly, rebound, tenderness Rectal exam: PRESENT: deferred Extremities exam: PRESENT: full ROM. ABSENT: calf tenderness, clubbing, pedal edema Neurological exam: PRESENT: alert, awake, oriented to person, oriented to place , oriented to time, oriented to situation, CN II-XII grossly intact. ABSENT: motor sensory deficit Psychiatric exam: PRESENT: appropriate affect, normal mood. ABSENT: homicidal ideation, suicidal ideation Skin exam: PRESENT: dry, intact, warm, other - Left foot wound VAC intact. ABSENT: cyanosis, rash Results Impressions: Chest X-Ray 03/06/17 17:44 IMPRESSION: NO ACUTE RADIOGRAPHIC FINDING IN THE CHEST. Assessment & Plan - Diagnosis (1) Acute hyperkalemia Is this a current diagnosis for this admission?: YesPlan: Acute unclear cause with peaked T waves he receives calcium gluconate, insulin, glucose, albuterol, IV fluid in the diuretic and serial reevaluation chemistries. Placed on low potassium diet and lactulose (2) Chest pain Qualifiers: Chest pain type: unspecified Qualified Code(s): R07.9 - Chest pain, unspecified Is this a current diagnosis for this admission?: YesPlan: Patient has recurrent chest pain syndrome associated with chronic cocaine abuse , will obtain serial cardiac enzymes, Valium, aspirin, Lipitor, heparin when necessary, nonnarcotic analgesia and education (3) Acute renal failure Qualifiers: Acute renal failure type: unspecified Qualified Code(s): N17.9 - Acute kidney failure, unspecified Is this a current diagnosis for this admission?: YesPlan: Secondary to noncompliance and uncontrolled chronic conditions diabetes and cocaine abuse, I'll avoid nephrotoxic meds and doses, hydralazine and clonidine when necessary with reevaluation of chemistry (4) Anxiety and depression Is this a current diagnosis for this admission?: YesPlan: Symptomatically management, Valium and consideration of Risperdal (5) Diabetes Qualifiers: Diabetes mellitus type: type 2 Diabetes mellitus complication detail: with peripheral angiopathy with gangrene Diabetes mellitus skilled nursing 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 Is this a current diagnosis for this admission?: YesPlan: Lantus and Humalog sliding scale diabetic diet and education (6) Rhabdomyolysis Qualifiers: Rhabdomyolysis type: non-traumatic Qualified Code(s): M62.82 - Rhabdomyolysis Is this a current diagnosis for this admission?: YesPlan: Secondary to cocaine abuse receive supportive care IV fluids consideration of bicarbonate and reevaluation of total CK (7) Cocaine abuse Is this a current diagnosis for this admission?: YesPlan: Multiple attempts at cocaine cessation counseling of been unsuccessful referred to mental health (8) HIV (human immunodeficiency virus infection) Is this a current diagnosis for this admission?: YesPlan: Unknown CD4 count continue outpatient [facility] therapy consider contacting infectious disease for compliance history - Time Time Spent: 50 to 70 Minutes - Inpatient Certification Medical Necessity: Need Close Monitoring Due to Risk of Patient Decompensation
[2017-03-07] MEDS: HEPARIN SOD (PORCINE) 5,000 UNIT/ML 1 ML SYRINGE SUBCUT SCH ×3 (05:27→22:44)
[2017-03-07] MEDS: CLONIDINE HCL 0.1 MG TABLET PO SCH ×3 (05:29→22:43)
[2017-03-07] MEDS: HYDRALAZINE HCL 50 MG TABLET PO SCH ×3 (05:30→22:43)
[2017-03-07 06:38] LABS: ABSOLUTE EOSINOPHILS # (AUTO) 0.1 10^3/uL (0.0-0.6); ABSOLUTE LYMPHOCYTES (AUTO) 1.5 10^3/uL (0.5-4.7); ABSOLUTE MONOCYTES (AUTO) 0.6 10^3/uL (0.1-1.4); ABSOLUTE NEUT (AUTO) 3.4 10^3/uL (1.7-8.2); BASOPHILS % (AUTO) 0.8 % (0-2); EOSINOPHILS % (AUTO) 1.2 % (0-6); HEMATOCRIT 32.4 % (37.9-51.0); HEMOGLOBIN 10.5 g/dL (13.5-17.0); HGB HCT DIFFERENCE -0.9; LYMPHOCYTES % (AUTO) 26.8 % (13-45); MEAN CORPUSCULAR HEMOGLOBIN 27.8 pg (27.0-33.4); MEAN CORPUSCULAR HGB CONC 32.5 g/dL (32.0-36.0); MEAN CORPUSCULAR VOLUME 86 fl (80-97); RED BLOOD COUNT 3.78 10^6/uL (4.35-5.55); RED CELL DISTRIBUTION WIDTH 15.7 % (11.5-14.0); SEGMENTED NEUTROPHILS % (AUTO) 60.2 % (42-78); WHITE BLOOD COUNT 5.7 10^3/uL (4.0-10.5)
[2017-03-07 07:02] LABS: ANION GAP 12 (5-19); BLOOD UREA NITROGEN 26 mg/dL (7-20); CALCIUM 8.8 mg/dL (8.4-10.2); CARBON DIOXIDE 19 mmol/L (22-30); CHLORIDE 110 mmol/L (98-107); CREATINE KINASE 1371 U/L (55-170); CREATININE RESULT 2.18 mg/dL (0.52-1.25); GLUCOSE 133 mg/dL (75-110); SODIUM 140.9 mmol/L (137-145)
[2017-03-07 07:09] LABS: TROPONIN I < 0.012 ng/mL
[2017-03-07] MEDS ORDERED: CLONIDINE HCL 0.1 MG TABLET PO SCH (10:00)
[2017-03-07] MEDS: ARIPIPRAZOLE 5 MG TABLET PO SCH (10:29)
[2017-03-07] MEDS: FLUOXETINE HCL 20 MG CAPSULE PO SCH (10:29)
[2017-03-07] MEDS: OXYCODONE HCL IR 5 MG TABLET PO PRN ×3 (10:30→22:43)
[2017-03-07] MEDS: DOCUSATE SODIUM 100 MG CAPSULE PO SCH ×2 (10:35→18:12)
--- NOTE | 2017-03-07 10:36 | PDOC PROGRESS REPORT ---
Subjective Progress Note for:: 03/07/17 Subjective:: Complains of pain in his left foot stump. Physical Exam Vital Signs: Temp Pulse Resp BP Pulse Ox 97.4 F 81 20 146/94 H 98 03/07/17 04:01 03/07/17 07:00 03/07/17 04:01 03/07/17 05:29 03/07/17 05:29 Intake & Output 03/06/17 03/07/17 03/08/17 06:59 06:59 06:59 Intake Total 1230 Balance 1230 Weight 112.2 kg General appearance: PRESENT: no acute distress Eye exam: PRESENT: conjunctiva pink. ABSENT: scleral icterus Ear exam: PRESENT: normal external ear exam Mouth exam: PRESENT: moist, tongue midline Neck exam: ABSENT: JVD Respiratory exam: PRESENT: clear to auscultation vanessa. ABSENT: rales, rhonchi, wheezes Cardiovascular exam: PRESENT: RRR. ABSENT: diastolic murmur, rubs, systolic murmur GI/Abdominal exam: PRESENT: normal bowel sounds, soft. ABSENT: distended, guarding, mass, organolmegaly, rebound, tenderness Extremities exam: PRESENT: other - Wound VAC in place on the left foot.. ABSENT : calf tenderness, clubbing, pedal edema Neurological exam: PRESENT: alert, awake, oriented to person, oriented to place , oriented to time, oriented to situation, CN II-XII grossly intact. ABSENT: motor sensory deficit Psychiatric exam: PRESENT: appropriate affect Skin exam: PRESENT: other - Wound VAC in place on the left foot. Results Laboratory Results: 03/07/17 06:25 03/07/17 06:25 03/07/17 03/07/17 06:25 06:25 WBC 5.7 RBC 3.78 L Hgb 10.5 L Hct 32.4 L MCV 86 MCH 27.8 MCHC 32.5 RDW 15.7 H Plt Count 271 Seg Neutrophils % 60.2 Lymphocytes % 26.8 Monocytes % 11.0 Eosinophils % 1.2 Basophils % 0.8 Absolute Neutrophils 3.4 Absolute Lymphocytes 1.5 Absolute Monocytes 0.6 Absolute Eosinophils 0.1 Absolute Basophils 0.0 Sodium 140.9 Potassium 7.0 H* Chloride 110 H Carbon Dioxide 19 L Anion Gap 12 BUN 26 H Creatinine 2.18 H Est GFR ( Amer) 39 L Est GFR (Non-Af Amer) 32 L Glucose 133 H Calcium 8.8 03/07/17 03/07/17 06:25 06:25 Creatine Kinase 1371 H CK-MB (CK-2) 2.30 Troponin I < 0.012 Impressions: Chest X-Ray 03/06/17 17:44 IMPRESSION: NO ACUTE RADIOGRAPHIC FINDING IN THE CHEST. Assessment & Plan - Diagnosis (1) Acute hyperkalemia Is this a current diagnosis for this admission?: YesPlan: Secondary to acute on chronic renal failure. Patient has been getting Kayexalate (2) Chest pain Qualifiers: Chest pain type: other chest pain Qualified Code(s): R07.89 - Other chest pain; R07.8 - Other chest pain Is this a current diagnosis for this admission?: YesPlan: Patient has been using cocaine. Troponins have been negative. (3) HIV (human immunodeficiency virus infection) Is this a current diagnosis for this admission?: YesPlan: Patient will continue this usual antiretroviral regiment. (4) Acute renal failure Qualifiers: Acute renal failure type: unspecified Qualified Code(s): N17.9 - Acute kidney failure, unspecified Is this a current diagnosis for this admission?: YesPlan: Patient has acute on chronic renal failure stage III. (5) Anxiety and depression Is this a current diagnosis for this admission?: Yes (6) Coronary artery disease Qualifiers: Coronary Disease-Associated Artery/Lesion type: [place] artery [place] vs. transplanted heart: sioux heart Associated angina: without angina Qualified Code(s): I25.10 - Atherosclerotic heart disease of [place] coronary artery without angina pectoris Is this a current diagnosis for this admission?: YesPlan: Patient has had the chest pain related to cocaine use but troponins have been negative. 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 (8) Diabetic infection of left foot Is this a current diagnosis for this admission?: YesPlan: Patient is using a wound VAC on his left foot. (9) Hypertension Qualifiers: Hypertension type: essential hypertension Qualified Code(s): I10 - Essential (primary) hypertension Is this a current diagnosis for this admission?: YesPlan: Continue clonidine and hydralazine. (10) Peripheral vascular disease Is this a current diagnosis for this admission?: Yes (11) Bipolar disorder Qualifiers: Active/Remission status: remission status unspecified Qualified Code (s): F31.9 - Bipolar disorder, unspecified Is this a current diagnosis for this admission?: YesPlan: Stable. - Time Time Spent with patient: 25-34 minutes - Inpatient Certification Medical Necessity: Need Close Monitoring Due to Risk of Patient Decompensation
[2017-03-07 12:45] LABS: ANION GAP 11 (5-19); BLOOD UREA NITROGEN 24 mg/dL (7-20); CARBON DIOXIDE 19 mmol/L (22-30); CHLORIDE 107 mmol/L (98-107); CREATININE RESULT 1.98 mg/dL (0.52-1.25); GLUCOSE 224 mg/dL (75-110)
[2017-03-07 12:51] LABS: POTASSIUM 7.7 mmol/L (3.6-5.0)
[2017-03-07 12:56] LABS: CREATINE KINASE MB 2.41 ng/mL (<4.55)
[2017-03-07 13:02] LABS: TROPONIN I < 0.012 ng/mL
[2017-03-07] MEDS: INSULIN LISPRO 100 UNIT/ML 3 ML VIAL SUBCUT PRN ×3 (13:21→22:43)
[2017-03-07] MEDS ORDERED: SODIUM POLYSTYRENE SULFONATE 15 GM/60 ML PO ONE (13:45)
--- NOTE | 2017-03-07 14:49 | CONSULTATION REPORT E ---
Consultation Report NAME: MILADYS LONDON : 1970 AGE: 46Y DATE: 03/07/2017 321 B TO: BUD LAZO M.D. FROM: KARLA OLVERA M.D. Requesting Physician REASON FOR CONSULTATION: Check left foot wound that has been on wound VAC. HISTORY OF PRESENT ILLNESS: This is a 46-year-old male with history of HIV, hypertension, peripheral vascular disease, status post bilateral toe amputations, and left foot wound VAC for the past month. Patient initially admitted for chest pains due to cocaine abuse. PAST MEDICAL HISTORY: 1. Coronary artery disease. 2. HI. 3. Hypertension. 4. PVD. 5. Pulmonary embolism. PULMONARY HISTORY: 1. COPD. 2. Pneumonia a year ago. NEUROLOGIC HISTORY: Seizures about 4 years ago. Depakote apparently stopped by his primary physician. ENDOCRINE HISTORY: Diabetes mellitus, type 1, and diabetes mellitus, type 2. GASTROINTESTINAL HISTORY: Reports history of hepatitis. MUSCULOSKELETAL HISTORY: Arthritis. PSYCHIATRIC HISTORY: Reports bipolar disorder, PTSD, and depression. HEMATOLOGY HISTORY: Reports anemia. INFECTIOUS HISTORY: 1. HIV. Patient reports no detectable viral count. 2. Methicillin-resistant Staphylococcus aureus. PAST SURGICAL HISTORY: 1. Orthopedic surgery: Right knee replacement, right toe amputation, amputation left toes. 2. Laser eye surgery. SOCIAL HISTORY: Apparently everyday smoker. Alcohol use, about 3 beers a day. Past history of recreational drug use, including cocaine and marijuana. No history of prescription drug abuse. FAMILY HISTORY: Positive coronary artery disease, COPD, diabetes mellitus, hypertension, and hyperlipidemia. MEDICATIONS: See other chart. ALLERGIES: PENICILLIN. REVIEW OF SYSTEMS: CONSTITUTIONAL: Absent chills or fever. EYES/EARS: No visual or hearing problems. CARDIOVASCULAR: Denies chest pains or dyspnea on exertion. RESPIRATORY: No cough, no hemoptysis. GASTROINTESTINAL: No abdominal pains. GENITOURINARY: No dysuria. MUSCULOSKELETAL: No joint swelling. INTEGUMENTARY: No rash. Has a wound on the left foot that is being treated with vacuum therapy. NEUROLOGIC: No confusion or focal weakness. PHYSICAL EXAMINATION: VITAL SIGNS: Blood pressure 129/79, temperature 98.1, pulse rate of 80 per minute, O2 saturation 99%. NECK: Supple. No thyromegaly. LUNGS: Clear. HEART: Regular sinus rhythm. ABDOMEN: Soft, nontender. EXTREMITIES: Palpable ankle pulses. There is an ulcer between the first and the fourth toes with good granulation tissue, roughly measuring about 6 cm x 3 cm. IMPRESSION: 1. Ulcer of the left foot with good granulation tissue. 2. Diabetes mellitus. RECOMMENDATION: Continue with the vacuum therapy and [facility]. DICTATING PHYSICIAN: BUD LAZO M.D. [id number] PHY#: [id number] ID: [id number] JOB#: [id number] ACCT: [id number] cc:BUD LAZO M.D. >
[2017-03-07 20:13] LABS: ANION GAP 12 (5-19); BLOOD UREA NITROGEN 25 mg/dL (7-20); CALCIUM 8.6 mg/dL (8.4-10.2); CARBON DIOXIDE 19 mmol/L (22-30); CHLORIDE 106 mmol/L (98-107); CREATINE KINASE 1046 U/L (55-170); CREATININE RESULT 1.94 mg/dL (0.52-1.25); GLUCOSE 257 mg/dL (75-110); SODIUM 136.6 mmol/L (137-145)
[2017-03-07 20:19] LABS: POTASSIUM 6.3 mmol/L (3.6-5.0)
[2017-03-07] MEDS ORDERED: LACTULOSE SYRUP 20 GM/30 ML UDCUP PO ONE (20:33)
[2017-03-07 20:53] LABS: CREATINE KINASE MB 1.93 ng/mL (<4.55)
[2017-03-07 20:56] LABS: TROPONIN I < 0.012 ng/mL
[2017-03-07] MEDS: INSULIN GLARGINE,HUM.REC.ANLOG 300 UNIT/3 ML INSULN.PEN SUBCUT SCH (22:43)
[2017-03-07] MEDS: SIMVASTATIN 10 MG TABLET PO SCH (22:44)
[2017-03-08 02:21] LABS: ANION GAP 14 (5-19); BLOOD UREA NITROGEN 25 mg/dL (7-20); CALCIUM 9.1 mg/dL (8.4-10.2); CARBON DIOXIDE 20 mmol/L (22-30); CHLORIDE 107 mmol/L (98-107); CREATININE RESULT 2.02 mg/dL (0.52-1.25); GLUCOSE 213 mg/dL (75-110); SODIUM 141.1 mmol/L (137-145)
[2017-03-08 02:25] LABS: POTASSIUM 6.4 mmol/L (3.6-5.0)
[2017-03-08] MEDS: CLONIDINE HCL 0.1 MG TABLET PO SCH ×3 (06:02→22:44)
[2017-03-08] MEDS: HEPARIN SOD (PORCINE) 5,000 UNIT/ML 1 ML SYRINGE SUBCUT SCH ×3 (06:02→22:43)
[2017-03-08] MEDS: HYDRALAZINE HCL 50 MG TABLET PO SCH ×3 (06:03→22:43)
[2017-03-08 08:13] LABS: ANION GAP 11 (5-19); BLOOD UREA NITROGEN 20 mg/dL (7-20); CALCIUM 9.1 mg/dL (8.4-10.2); CARBON DIOXIDE 20 mmol/L (22-30); CHLORIDE 108 mmol/L (98-107); CREATININE RESULT 1.78 mg/dL (0.52-1.25); GLUCOSE 117 mg/dL (75-110); SODIUM 139.1 mmol/L (137-145)
[2017-03-08 08:35] LABS: POTASSIUM 6.3 mmol/L (3.6-5.0)
[2017-03-08] MEDS: SODIUM POLYSTYRENE SULFONATE 15 GM/60 ML PO SCH ×2 (10:24→22:44)
[2017-03-08] MEDS: FLUOXETINE HCL 20 MG CAPSULE PO SCH (10:24)
[2017-03-08] MEDS: ARIPIPRAZOLE 5 MG TABLET PO SCH (10:25)
[2017-03-08] MEDS: OXYCODONE HCL IR 5 MG TABLET PO PRN ×2 (10:27→15:44)
[2017-03-08] MEDS: DOCUSATE SODIUM 100 MG CAPSULE PO SCH ×2 (10:31→18:06)
--- NOTE | 2017-03-08 11:41 | PDOC PROGRESS REPORT ---
Subjective Progress Note for:: 03/08/17 Subjective:: Complains of pain in his left foot stump. Physical Exam Vital Signs: Temp Pulse Resp BP Pulse Ox 97.7 F 82 16 111/65 97 03/08/17 08:18 03/08/17 08:18 03/08/17 08:18 03/08/17 08:18 03/08/17 08:18 Intake & Output 03/07/17 03/08/17 03/09/17 06:59 06:59 06:59 Intake Total 1230 2077 Output Total 2 Balance 1230 2075 Weight 112.2 kg 114.3 kg General appearance: PRESENT: no acute distress Eye exam: PRESENT: conjunctiva pink. ABSENT: scleral icterus Ear exam: PRESENT: normal external ear exam Mouth exam: PRESENT: moist, tongue midline Neck exam: ABSENT: carotid bruit, JVD, lymphadenopathy, thyromegaly Respiratory exam: PRESENT: clear to auscultation vanessa. ABSENT: rales, rhonchi, wheezes Cardiovascular exam: PRESENT: RRR. ABSENT: diastolic murmur, rubs, systolic murmur GI/Abdominal exam: PRESENT: normal bowel sounds, soft. ABSENT: distended, guarding, mass, organolmegaly, rebound, tenderness Extremities exam: PRESENT: other - Wound VAC in place on the left foot. ABSENT : calf tenderness, clubbing, pedal edema Neurological exam: PRESENT: alert, awake, oriented to person, oriented to place , oriented to time, oriented to situation, CN II-XII grossly intact. ABSENT: motor sensory deficit Psychiatric exam: PRESENT: appropriate affect Skin exam: PRESENT: dry, intact, warm, other - Wound VAC in place on the left foot wound. ABSENT: cyanosis, rash Results Laboratory Results: 03/07/17 06:25 03/08/17 07:35 03/07/17 03/07/17 03/08/17 12:10 19:30 01:33 Sodium 137.0 136.6 L 141.1 Potassium 7.7 H* 6.3 H* D 6.4 H* Chloride 107 106 107 Carbon Dioxide 19 L 19 L 20 L Anion Gap 11 12 14 BUN 24 H 25 H 25 H Creatinine 1.98 H 1.94 H 2.02 H Est GFR ( Amer) 44 L 45 L 43 L Est GFR (Non-Af Amer) 36 L 37 L 35 L Glucose 224 H 257 H 213 H Calcium 9.0 8.6 9.1 03/08/17 07:35 Sodium 139.1 Potassium 6.3 H* Chloride 108 H Carbon Dioxide 20 L Anion Gap 11 BUN 20 Creatinine 1.78 H Est GFR ( Amer) 50 L Est GFR (Non-Af Amer) 41 L Glucose 117 H Calcium 9.1 03/07/17 07:00 Nasophary ([facility] Only) MRSA Surveillance Culture - Final NO MRSA RECOVERED 03/07/17 03/07/17 03/07/17 06:25 06:25 12:10 Creatine Kinase 1371 H 1242 H CK-MB (CK-2) 2.30 Troponin I < 0.012 03/07/17 03/07/17 03/07/17 12:10 19:30 19:30 Creatine Kinase 1046 H CK-MB (CK-2) 2.41 1.93 Troponin I < 0.012 < 0.012 Impressions: Chest X-Ray 03/06/17 17:44 IMPRESSION: NO ACUTE RADIOGRAPHIC FINDING IN THE CHEST. Assessment & Plan - Diagnosis (1) Acute hyperkalemia Is this a current diagnosis for this admission?: YesPlan: Secondary to acute on chronic renal failure. Patient has been getting Kayexalate. Will consult nephrology in the morning. (2) Chest pain Qualifiers: Chest pain type: other chest pain Qualified Code(s): R07.89 - Other chest pain; R07.8 - Other chest pain Is this a current diagnosis for this admission?: YesPlan: Patient has been using cocaine. Troponins have been negative. (3) HIV (human immunodeficiency virus infection) Is this a current diagnosis for this admission?: YesPlan: Patient will continue this usual antiretroviral regiment. (4) Acute renal failure Qualifiers: Acute renal failure type: unspecified Qualified Code(s): N17.9 - Acute kidney failure, unspecified Is this a current diagnosis for this admission?: YesPlan: Patient has acute on chronic renal failure stage III. (5) Anxiety and depression Is this a current diagnosis for this admission?: Yes (6) Coronary artery disease Qualifiers: Coronary Disease-Associated Artery/Lesion type: [place] artery [place] vs. transplanted heart: [place] heart Associated angina: without angina Qualified Code(s): I25.10 - Atherosclerotic heart disease of [place] coronary artery without angina pectoris Is this a current diagnosis for this admission?: YesPlan: Patient has had the chest pain related to cocaine use but troponins have been negative. 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 (8) Diabetic infection of left foot Is this a current diagnosis for this admission?: YesPlan: Patient is using a wound VAC on his left foot. (9) Hypertension Qualifiers: Hypertension type: essential hypertension Qualified Code(s): I10 - Essential (primary) hypertension Is this a current diagnosis for this admission?: YesPlan: Continue clonidine and hydralazine. (10) Peripheral vascular disease Is this a current diagnosis for this admission?: Yes (11) Bipolar disorder Qualifiers: Active/Remission status: remission status unspecified Qualified Code (s): F31.9 - Bipolar disorder, unspecified Is this a current diagnosis for this admission?: YesPlan: Stable. - Time Time Spent with patient: 25-34 minutes - Inpatient Certification Medical Necessity: Need Close Monitoring Due to Risk of Patient Decompensation - Plan Summary Plan Summary: Patient stable for discharge except that his potassium continues to remain high. Because of this he'll need to remain an inpatient and continue with Kayexalate. Will be evaluated by nephrology tomorrow.
[2017-03-08] MEDS: INSULIN LISPRO 100 UNIT/ML 3 ML VIAL SUBCUT PRN ×3 (12:24→22:43)
[2017-03-08 15:28] LABS: ANION GAP 11 (5-19); BLOOD UREA NITROGEN 20 mg/dL (7-20); CALCIUM 9.1 mg/dL (8.4-10.2); CARBON DIOXIDE 20 mmol/L (22-30); CHLORIDE 105 mmol/L (98-107); CREATININE RESULT 1.73 mg/dL (0.52-1.25); GLUCOSE 175 mg/dL (75-110); SODIUM 135.7 mmol/L (137-145)
[2017-03-08 15:34] LABS: POTASSIUM 6.6 mmol/L (3.6-5.0)
[2017-03-08] MEDS: INSULIN GLARGINE,HUM.REC.ANLOG 300 UNIT/3 ML INSULN.PEN SUBCUT SCH (22:43)
[2017-03-08] MEDS: SIMVASTATIN 10 MG TABLET PO SCH (22:44)
[2017-03-09] MEDS: OXYCODONE HCL IR 5 MG TABLET PO PRN ×2 (00:08→09:50)
[2017-03-09 05:00] LABS: ABSOLUTE BASOPHILS # (AUTO) 0.1 10^3/uL (0.0-0.2); ABSOLUTE EOSINOPHILS # (AUTO) 0.2 10^3/uL (0.0-0.6); ABSOLUTE LYMPHOCYTES (AUTO) 1.7 10^3/uL (0.5-4.7); ABSOLUTE MONOCYTES (AUTO) 0.5 10^3/uL (0.1-1.4); ABSOLUTE NEUT (AUTO) 1.6 10^3/uL (1.7-8.2); BASOPHILS % (AUTO) 1.9 % (0-2); EOSINOPHILS % (AUTO) 4.9 % (0-6); HEMATOCRIT 32.2 % (37.9-51.0); HEMOGLOBIN 10.6 g/dL (13.5-17.0); HGB HCT DIFFERENCE -0.4; MEAN CORPUSCULAR HEMOGLOBIN 28.1 pg (27.0-33.4); MEAN CORPUSCULAR HGB CONC 32.8 g/dL (32.0-36.0); MEAN CORPUSCULAR VOLUME 86 fl (80-97); MONOCYTES % (AUTO) 11.9 % (3-13); RED BLOOD COUNT 3.76 10^6/uL (4.35-5.55); RED CELL DISTRIBUTION WIDTH 15.6 % (11.5-14.0); SEGMENTED NEUTROPHILS % (AUTO) 40.3 % (42-78); WHITE BLOOD COUNT 4.1 10^3/uL (4.0-10.5)
[2017-03-09 05:17] LABS: ANION GAP 11 (5-19); BLOOD UREA NITROGEN 21 mg/dL (7-20); CALCIUM 9.5 mg/dL (8.4-10.2); CARBON DIOXIDE 21 mmol/L (22-30); CHLORIDE 108 mmol/L (98-107); CREATININE RESULT 1.71 mg/dL (0.52-1.25); GLUCOSE 71 mg/dL (75-110); SODIUM 140.1 mmol/L (137-145)
[2017-03-09 05:24] LABS: POTASSIUM 5.5 mmol/L (3.6-5.0)
[2017-03-09] MEDS: HEPARIN SOD (PORCINE) 5,000 UNIT/ML 1 ML SYRINGE SUBCUT SCH ×2 (06:16→14:50)
[2017-03-09] MEDS: HYDRALAZINE HCL 50 MG TABLET PO SCH ×2 (06:16→14:48)
[2017-03-09] MEDS: CLONIDINE HCL 0.1 MG TABLET PO SCH ×2 (06:16→14:48)
[2017-03-09] MEDS: FLUOXETINE HCL 20 MG CAPSULE PO SCH (09:49)
[2017-03-09] MEDS: ARIPIPRAZOLE 5 MG TABLET PO SCH (09:49)
[2017-03-09] MEDS: DOCUSATE SODIUM 100 MG CAPSULE PO SCH (09:50)
[2017-03-09] MEDS ORDERED: SODIUM POLYSTYRENE SULFONATE 15 GM/60 ML PO ONE (14:45)
[2017-03-09 16:21] VITALS: BP 119/75
--- NOTE | 2017-03-09 16:41 | PDOC DISCHARGE SUMMARY ---
General - Admit/Disc Date/PCP Admission Date/Primary Care Provider: 03/06/17 23:32 RA IGNACIO MD Discharge Date: 03/09/17 - Discharge Diagnosis (1) Acute hyperkalemia Is this a current diagnosis for this admission?: YesSummary: Secondary to chronic renal failure. Being sent home on Kayexalate. Will follow -up with Dr. Augustin Camargo in 1 week. (2) Chest pain Is this a current diagnosis for this admission?: YesSummary: This occurred after doing cocaine. Patient negative cardiac enzymes. He is instructed to stop using cocaine (3) HIV (human immunodeficiency virus infection) Is this a current diagnosis for this admission?: Yes (4) Acute renal failure Is this a current diagnosis for this admission?: YesSummary: Patient has acute on chronic renal failure stage IV. (5) Anxiety and depression Is this a current diagnosis for this admission?: Yes (6) Coronary artery disease Is this a current diagnosis for this admission?: Yes (7) Diabetes Is this a current diagnosis for this admission?: Yes (8) Diabetic infection of left foot Is this a current diagnosis for this admission?: YesSummary: A she has a wound VAC in place and will continue with that at home. (9) Hypertension Is this a current diagnosis for this admission?: Yes (10) Peripheral vascular disease Is this a current diagnosis for this admission?: Yes (11) Bipolar disorder Is this a current diagnosis for this admission?: Yes - Additional Information Resuscitation Status: Full Code Discharge Diet: Cardiac, Diabetic Discharge Activity: Activity As Tolerated Home Medications: Alprazolam [Xanax] 2 mg PO Q12 03/07/17 Amitriptyline HCl [Elavil 25 mg Tablet] 25 mg PO DAILY 03/07/17 Aripiprazole [Abilify] 20 mg PO DAILY 03/07/17 Atenolol [Tenormin 100 mg Tablet] 100 mg PO DAILY 03/07/17 Clonidine HCl [Catapres 0.1 mg Tablet] 0.1 mg PO Q12 03/07/17 Cyclobenzaprine HCl [Flexeril 10 mg Tablet] 10 mg PO TIDP PRN 03/07/17 Diclofenac Sodium [Diclofenac Sodium ER] 100 mg PO DAILY 03/07/17 Emtricitab/Rilpiviri/Tenof Ala [Odefsey Tablet] 1 tab PO DAILY 03/07/17 Fluoxetine HCl [Prozac] 40 mg PO DAILY 03/07/17 Gabapentin [Neurontin 400 mg Capsule] 400 mg PO BID 03/07/17 Hydralazine HCl [Apresoline 50 mg Tablet] 50 mg PO Q8 03/07/17 Insulin Glargine,Hum.rec.anlog [Lantus Solostar] 45 unit SQ QHS 03/07/17 Lisinopril [Prinivil 5 mg Tablet] 5 mg PO QPM 03/07/17 Oxycodone HCl/Acetaminophen [Percocet 7.5-325 mg Tablet] 1 tab PO BIDP PRN 03/07 Simvastatin [Zocor 20 mg Tablet] 20 mg PO QHS 03/07/17 Zolpidem Tartrate [Ambien] 15 mg PO HSP PRN 03/07/17 Sodium Polystyrene Sulfonate [Kayexalate 15 Gm/60 Ml Susp 60 Ml] 15 gm PO TID 30 Days 03/09/17 History of Present Illness History of Present Illness: MILADYS LONDON III is a 46 year old male presented with chest pain. He had done cocaine earlier. The patient also was noted to have hyperkalemia and is admitted for evaluation of the chest pain as well as his hyperkalemia. Hospital Course Hospital Course: 46-year-old gentleman who presented with chest pain. This occurred after doing cocaine. His cardiac enzymes were negative. Patient also was noted have hyperkalemia. He was given Kayexalate with only slight improvement in his potassium. Dr. Augustin Camargo of nephrology was consulted and recommended having the patient follow-up with him in his office and continue with Kayexalate. Patient no other indications for dialysis as he was euvolemic. Physical Exam Vital Signs: Temp Pulse Resp BP Pulse Ox 98.4 F 92 16 119/75 98 03/09/17 16:19 03/09/17 16:19 03/09/17 16:19 03/09/17 16:19 03/09/17 16:19 Intake & Output 03/08/17 03/09/17 03/10/17 06:59 06:59 06:59 Intake Total 2076 1788 355 Output Total 2 Balance 2074 1788 355 Weight 114.3 kg 113.4 kg General appearance: PRESENT: no acute distress Eye exam: PRESENT: conjunctiva pink. ABSENT: scleral icterus Mouth exam: PRESENT: moist, tongue midline Neck exam: ABSENT: carotid bruit, JVD, lymphadenopathy, thyromegaly Respiratory exam: PRESENT: clear to auscultation vanessa. ABSENT: rales, rhonchi, wheezes Cardiovascular exam: PRESENT: RRR. ABSENT: diastolic murmur, rubs, systolic murmur Pulses: PRESENT: normal dorsalis pedis pul GI/Abdominal exam: PRESENT: normal bowel sounds, soft. ABSENT: distended, guarding, mass, organolmegaly, rebound, tenderness Rectal exam: PRESENT: deferred Extremities exam: PRESENT: other - Wound VAC in place on the left foot.. ABSENT : calf tenderness, clubbing, pedal edema Neurological exam: PRESENT: alert, awake, oriented to person, oriented to place , oriented to time, oriented to situation, CN II-XII grossly intact. ABSENT: motor sensory deficit Psychiatric exam: PRESENT: appropriate affect Skin exam: PRESENT: other - Wound VAC in place on the left foot. Results Laboratory Results: 03/09/17 04:30 03/09/17 13:54 03/09/17 03/09/17 03/09/17 04:30 04:30 13:54 WBC 4.1 RBC 3.76 L Hgb 10.6 L Hct 32.2 L MCV 86 MCH 28.1 MCHC 32.8 RDW 15.6 H Plt Count 262 Seg Neutrophils % 40.3 L Lymphocytes % 41.0 Monocytes % 11.9 Eosinophils % 4.9 Basophils % 1.9 Absolute Neutrophils 1.6 L Absolute Lymphocytes 1.7 Absolute Monocytes 0.5 Absolute Eosinophils 0.2 Absolute Basophils 0.1 Sodium 140.1 Potassium 5.5 H D 6.3 H* Chloride 108 H Carbon Dioxide 21 L Anion Gap 11 BUN 21 H Creatinine 1.71 H Est GFR ( Amer) 52 L Est GFR (Non-Af Amer) 43 L Glucose 71 L Calcium 9.5 03/07/17 03/07/17 03/07/17 06:25 06:25 12:10 Creatine Kinase 1371 H 1242 H CK-MB (CK-2) 2.30 Troponin I < 0.012 03/07/17 03/07/17 03/07/17 12:10 19:30 19:30 Creatine Kinase 1046 H CK-MB (CK-2) 2.41 1.93 Troponin I < 0.012 < 0.012 Impressions: Chest X-Ray 03/06/17 17:44 IMPRESSION: NO ACUTE RADIOGRAPHIC FINDING IN THE CHEST. Qualifiers PATEINT BEING DISCHARGED WITH ANY OF THE FOLLOWING DIAGNOSIS?: No Plan Discharge Plan: Will follow up with Dr. Augustin Camargo in 1 week. Time Spent: Greater than 30 Minutes
--- NOTE | 2017-03-09 18:22 | PDOC CONSULTATION ---
Consultation Consult Date: 03/09/17 Consult reason:: Hyperkalemia. History of Present Illness Admission Date/PCP: 03/06/17 23:32 RA IGNACIO MD History of Present Illness: MILADYS LONDON III is a 46 year old male presented with chest pain. Is got underlying issues with CKD stage III, HIV. He had done cocaine earlier. The patient also was noted to have hyperkalemia and is admitted for evaluation of the chest pain as well as his hyperkalemia.He has had partial response to Kayexalate but his potassium is at 5.5. Is also got a left foot wound infection on the wound VAC. She denies any history of fever chills. Admits to intermittent noncompliance with diet and medications. Past Medical History Cardiac Medical History: Reports: Coronary Artery Disease, Hyperlipidemia, Hypertension-primary, Myocardial Infarction, Peripheral Vascular Disease, Pulmonary Embolism Pulmonary Medical History: Reports: Chronic Obstructive Pulmonary Disease (COPD) , Pneumonia - 1 year ago Neurological Medical History: Reports: Seizures - 4 years ago; Depakote stopped by his physician. Endocrine Medical History: Reports: Diabetes Mellitus Type 2 - IDDM Renal/ Medical History: Reports: Chronic Kidney Disease Stage III Malignancy Medical History: GI Medical History: Reports: Hepatitis Musculoskeltal Medical History: Reports: Arthritis Psychiatric Medical History: Reports: Bipolar Disorder, Depression, Post Traumatic Stress Disorder Infectious Medical History: Reports: HIV - Patient reports no detectable viral count, Methicillin-resist Staph Aureus Past Surgical History Past Surgical History: Reports: Orthopedic Surgery - right knee replacement, rt toe amputation; amputation 2 left toes., Other - Laser eye surgery Social History Smoking Status: Current Every Day Smoker Cigarettes Packs Per Day: 1 Number of Years Smokin Last Time Smoked: 03/04/2017 Frequency of Alcohol Use: Heavy - 3 beers a day Hx Recreational Drug Use: Yes Drugs: Cocaine - Positive cocaine on consecutive evaluations, Marijuana Hx Prescription Drug Abuse: No - Advance Directive Resuscitation Status: Full Code Family History Parental Family History Reviewed: Yes - Negative for CKD Children Family History Reviewed: No Sibling(s) Family History Reviewed.: No Medication/Allergy Home Medications: Alprazolam [Xanax] 2 mg PO Q12 03/07/17 Amitriptyline HCl [Elavil 25 mg Tablet] 25 mg PO DAILY 03/07/17 Aripiprazole [Abilify] 20 mg PO DAILY 03/07/17 Atenolol [Tenormin 100 mg Tablet] 100 mg PO DAILY 03/07/17 Clonidine HCl [Catapres 0.1 mg Tablet] 0.1 mg PO Q12 03/07/17 Cyclobenzaprine HCl [Flexeril 10 mg Tablet] 10 mg PO TIDP PRN 03/07/17 Diclofenac Sodium [Diclofenac Sodium ER] 100 mg PO DAILY 03/07/17 Emtricitab/Rilpiviri/Tenof Ala [Odefsey Tablet] 1 tab PO DAILY 03/07/17 Fluoxetine HCl [Prozac] 40 mg PO DAILY 03/07/17 Gabapentin [Neurontin 400 mg Capsule] 400 mg PO BID 03/07/17 Hydralazine HCl [Apresoline 50 mg Tablet] 50 mg PO Q8 03/07/17 Insulin Glargine,Hum.rec.anlog [Lantus Solostar] 45 unit SQ QHS 03/07/17 Lisinopril [Prinivil 5 mg Tablet] 5 mg PO QPM 03/07/17 Oxycodone HCl/Acetaminophen [Percocet 7.5-325 mg Tablet] 1 tab PO BIDP PRN 03/07 Simvastatin [Zocor 20 mg Tablet] 20 mg PO QHS 03/07/17 Zolpidem Tartrate [Ambien] 15 mg PO HSP PRN 03/07/17 Sodium Polystyrene Sulfonate [Kayexalate 15 Gm/60 Ml Susp 60 Ml] 15 gm PO TID 30 Days 03/09/17 Allergies/Adverse Reactions: Penicillins Allergy (Verified 03/06/17 18:04) rash Review of Systems Review of Systems: Constitutional: PRESENT: as per HPI. ABSENT: chills, fever(s), headache(s), weight gain, weight loss Eyes: ABSENT: visual disturbances Ears: ABSENT: hearing changes Cardiovascular: ABSENT: chest pain, dyspnea on exertion, edema, orthropnea, palpitations Respiratory: ABSENT: cough, hemoptysis Gastrointestinal: ABSENT: abdominal pain, constipation, diarrhea, hematemesis, hematochezia, nausea, vomiting Genitourinary: ABSENT: dysuria, hematuria Musculoskeletal: ABSENT: joint swelling Integumentary: ABSENT: rash, wounds Neurological: ABSENT: abnormal gait, abnormal speech, confusion, dizziness, focal weakness, syncope Psychiatric: ABSENT: anxiety, depression, homicidal ideation, suicidal ideation Endocrine: ABSENT: cold intolerance, heat intolerance, polydipsia, polyuria Hematologic/Lymphatic: ABSENT: easy bleeding, easy bruising, lymphadenopathy Physical Exam Vital Signs: Temp Pulse Resp BP Pulse Ox 98.4 F 92 16 119/75 98 03/09/17 16:19 03/09/17 16:19 03/09/17 16:19 03/09/17 16:19 03/09/17 16:19 Intake & Output 03/08/17 03/09/17 03/10/17 06:59 06:59 06:59 Intake Total 2076 1788 355 Output Total 2 Balance 2074 1788 355 Weight 114.3 kg 113.4 kg General appearance: PRESENT: no acute distress Respiratory exam: PRESENT: clear to auscultation vanessa. ABSENT: crackles, rhonchi Cardiovascular exam: PRESENT: +S1, +S2, systolic murmur GI/Abdominal exam: PRESENT: normal bowel sounds, soft. ABSENT: diminished bowel sounds, organomegaly, tenderness Extremities exam: ABSENT: pedal edema - Has left foot infection with wound VAC which is presently looking good. Neurological exam: PRESENT: alert, awake, oriented to person, oriented to place , oriented to time Results Laboratory Results: 03/09/17 04:30 03/09/17 13:54 03/09/17 03/09/17 03/09/17 04:30 04:30 13:54 WBC 4.1 RBC 3.76 L Hgb 10.6 L Hct 32.2 L MCV 86 MCH 28.1 MCHC 32.8 RDW 15.6 H Plt Count 262 Seg Neutrophils % 40.3 L Lymphocytes % 41.0 Monocytes % 11.9 Eosinophils % 4.9 Basophils % 1.9 Absolute Neutrophils 1.6 L Absolute Lymphocytes 1.7 Absolute Monocytes 0.5 Absolute Eosinophils 0.2 Absolute Basophils 0.1 Sodium 140.1 Potassium 5.5 H D 6.3 H* Chloride 108 H Carbon Dioxide 21 L Anion Gap 11 BUN 21 H Creatinine 1.71 H Est GFR ( Amer) 52 L Est GFR (Non-Af Amer) 43 L Glucose 71 L Calcium 9.5 03/07/17 03/07/17 03/07/17 06:25 06:25 12:10 Creatine Kinase 1371 H 1242 H CK-MB (CK-2) 2.30 Troponin I < 0.012 03/07/17 03/07/17 03/07/17 12:10 19:30 19:30 Creatine Kinase 1046 H CK-MB (CK-2) 2.41 1.93 Troponin I < 0.012 < 0.012 Impressions: Chest X-Ray 03/06/17 17:44 IMPRESSION: NO ACUTE RADIOGRAPHIC FINDING IN THE CHEST. Assessment & Plan - Diagnosis (1) Acute hyperkalemia Is this a current diagnosis for this admission?: YesPlan: Discussed with the hospitalist. Would recommend repeat Kayexalate and then discharge him and he needs to follow-up up with me in my office in a week's time with labs. Advised patient to be on a low potassium diet. (2) Diabetic infection of left foot Is this a current diagnosis for this admission?: YesPlan: As per surgery/primary care (3) HIV (human immunodeficiency virus infection) Is this a current diagnosis for this admission?: Yes (4) Peripheral vascular disease Is this a current diagnosis for this admission?: Yes (5) CKD (chronic kidney disease), stage III Plan: Stable. (6) Cocaine abuse Is this a current diagnosis for this admission?: YesPlan: Advised to stop it for obvious reasons.
== END 2017-03-09 17:16 | disposition home health service (06) | DRG 682 ==
LOC: ER 17:10 → EH 23:32 → UNDOADMIN 03-07 00:07 → 3W 03-07 03:34
PROVIDERS: ADMIT Internal Medicine; ATTEND Internal Medicine
DX: N17.9 Acute kidney failure, unspecified (principal); B20 Human immunodeficiency virus [HIV] disease; M62.82 Rhabdomyolysis; E87.5 Hyperkalemia; N18.3 Chronic kidney disease, stage 3 (moderate); E11.621 Type 2 diabetes mellitus with foot ulcer; L97.529 Non-pressure chronic ulcer of other part of left foot with unspecified severity; I73.9 Peripheral vascular disease, unspecified; E11.22 Type 2 diabetes mellitus with diabetic chronic kidney disease; I12.9 Hypertensive chronic kidney disease with stage 1 through stage 4 chronic kidney disease, or unspecified chronic kidney disease; F41.8 Other specified anxiety disorders; F17.210 Nicotine dependence, cigarettes, uncomplicated; F14.10 Cocaine abuse, uncomplicated; F12.10 Cannabis abuse, uncomplicated; F10.10 Alcohol abuse, uncomplicated; I25.2 Old myocardial infarction; Z88.0 Allergy status to penicillin; Z89.422 Acquired absence of other left toe(s); Z89.421 Acquired absence of other right toe(s)
CPT/HCPCS: 36415; 71010; 80048; 80053; 80307; 81001; 82550; 82553; 82962; 84132; 84443; 84484; 85025; 85610; 93005; 93010; 94640; 96365; 96366; 96375; 99291; J0610; J1644; J1815; J1940; J3490; J7030; J7620

== ENCOUNTER → 2017-03-18 | Outpatient (CLI) | payer MEDICARE, MEDICAID ==
[2017-03-18 10:21] LABS: ABSOLUTE BASOPHILS # (AUTO) 0.1 10^3/uL (0.0-0.2); ABSOLUTE EOSINOPHILS # (AUTO) 0.1 10^3/uL (0.0-0.6); ABSOLUTE LYMPHOCYTES (AUTO) 0.9 10^3/uL (0.5-4.7); ABSOLUTE MONOCYTES (AUTO) 0.6 10^3/uL (0.1-1.4); ABSOLUTE NEUT (AUTO) 1.7 10^3/uL (1.7-8.2); BASOPHILS % (AUTO) 2.1 % (0-2); EOSINOPHILS % (AUTO) 3.2 % (0-6); HEMOGLOBIN 10.2 g/dL (13.5-17.0); HGB HCT DIFFERENCE -0.4; LYMPHOCYTES % (AUTO) 27.3 % (13-45); MEAN CORPUSCULAR HEMOGLOBIN 28.3 pg (27.0-33.4); MEAN CORPUSCULAR VOLUME 86 fl (80-97); MONOCYTES % (AUTO) 16.6 % (3-13); RED BLOOD COUNT 3.61 10^6/uL (4.35-5.55); SEGMENTED NEUTROPHILS % (AUTO) 50.8 % (42-78); WHITE BLOOD COUNT 3.4 10^3/uL (4.0-10.5)
[2017-03-18 10:45] LABS: HEMOGLOBIN 10.2 g/dL (13.5-17.0); HGB HCT DIFFERENCE -0.4; MEAN CORPUSCULAR HEMOGLOBIN 28.3 pg (27.0-33.4); MEAN CORPUSCULAR VOLUME 86 fl (80-97); RED BLOOD COUNT 3.61 10^6/uL (4.35-5.55); WHITE BLOOD COUNT 3.4 10^3/uL (4.0-10.5)
[2017-03-18 10:52] LABS: ALANINE AMINOTRANSFERASE 35 U/L (21-72); ALKALINE PHOSPHATASE 90 U/L (38-126); ANION GAP 11 (5-19); ASPARTATE AMINO TRANSFERASE 26 U/L (17-59); BILIRUBIN,DIRECT 0.3 mg/dL (0.0-0.4); BILIRUBIN,TOTAL 0.4 mg/dL (0.2-1.3); BLOOD UREA NITROGEN 22 mg/dL (7-20); C-REACTIVE PROTEIN 16.8 mg/L (<10.0); CALCIUM 8.6 mg/dL (8.4-10.2); CARBON DIOXIDE 27 mmol/L (22-30); CHLORIDE 103 mmol/L (98-107); CREATININE RESULT 1.53 mg/dL (0.52-1.25); GLUCOSE 257 mg/dL (75-110); POTASSIUM 5.5 mmol/L (3.6-5.0); SODIUM 140.5 mmol/L (137-145); TOTAL PROTEIN 7.4 g/dL (6.3-8.2)
[2017-03-18 10:58] LABS: ANION GAP 11 (5-19); BLOOD UREA NITROGEN 22 mg/dL (7-20); CALCIUM 8.6 mg/dL (8.4-10.2); CARBON DIOXIDE 27 mmol/L (22-30); CHLORIDE 103 mmol/L (98-107); CREATININE RESULT 1.53 mg/dL (0.52-1.25); GLUCOSE 257 mg/dL (75-110); POTASSIUM 5.5 mmol/L (3.6-5.0); SODIUM 140.5 mmol/L (137-145)
[2017-03-18 11:06] LABS: ERYTHROCYTE SEDIMENTATION RATE 39 mm/hr (0-15)
== END ==
LOC: OD 09:20
PROVIDERS: ATTEND Nurse Practitioner Family
DX: E11.22 Type 2 diabetes mellitus with diabetic chronic kidney disease (principal); N18.3 Chronic kidney disease, stage 3 (moderate); E87.5 Hyperkalemia; D64.1 Secondary sideroblastic anemia due to disease; E11.621 Type 2 diabetes mellitus with foot ulcer; L97.522 Non-pressure chronic ulcer of other part of left foot with fat layer exposed
CPT/HCPCS: 36415; 80048; 80053; 83036; 85025; 85027; 85652; 86140

== ENCOUNTER → 2017-03-20 | Outpatient (CLI) | payer MEDICARE, MEDICAID | LOC: OD 10:37 | PROVIDERS: ATTEND Internal Medicine Nephrology | DX: E87.5 Hyperkalemia (principal) | CPT/HCPCS: 36415; 84132 ==

== ENCOUNTER 2017-04-07 13:43 | Emergency (ER) | payer MEDICARE, MEDICAID ==
--- NOTE | 2017-04-07 15:48 | ER Document Report ---
ED Medical Screen (RME) - General Chief Complaint: Foot Pain Stated Complaint: NAUSEA Time Seen by Provider: 04/07/17 15:40 Mode of Arrival: Wheelchair Information source: Patient Notes: Patient complains of left foot pain. Patient is status post left second and third toe amputations. Patient does complain of increased pain, swelling as well as drainage to surgical wound. Patient reports fever of 102 last night. Patient additionally complains of cough and wheezing for the past 3 days. Patient does have a history of HIV and states that his viral load has been undetectable and his most recent blood draw 3 weeks ago. hx: HTN, HIV, depression, bipolar, cholesterol TRAVEL OUTSIDE OF THE [place] IN LAST 30 DAYS: No - Related Data Allergies/Adverse Reactions: Penicillins Allergy (Verified 03/06/17 18:04) rash Past Medical History - Social History Family history: None - Past Medical History Cardiac Medical History: Reports: Hx Coronary Artery Disease, Hx Heart Attack, Hx Hypercholesterolemia, Hx Hypertension, Hx Peripheral Vascular Disease, Hx Pulmonary Embolism Pulmonary Medical History: Reports: Hx COPD, Hx Pneumonia - 1 year ago Neurological Medical History: Reports: Hx Seizures - 4 years ago; Depakote stopped by his physician. Endocrine Medical History: Reports: Hx Diabetes Mellitus Type 1, Hx Diabetes Mellitus Type 2 - IDDM Renal/ Medical History: Reports: Hx Renal Insufficiency - Stage III renal failure. Denies: Hx Peritoneal Dialysis Malignancy Medical History: GI Medical History: Reports: Hx Hepatitis Musculoskeltal Medical History: Reports Hx Arthritis, Reports Hx Musculoskeletal Trauma Skin Medical History: Psychiatric Medical History: Reports: Hx Anxiety, Hx Bipolar Disorder, Hx Depression, Hx Post Traumatic Stress Disorder Traumatic Medical History: Reports: Hx Fractures - Knee pelvis and hand Infectious Medical History: Reports: Hx Hepatitis, Hx HIV - Patient reports no detectable viral count, Hx MRSA Past Surgical History: Reports: Hx Oral Surgery - Removal of most of teeth, Hx Orthopedic Surgery - right knee replacement, rt toe amputation; amputation 2 left toes., Other - Laser eye surgery - Immunizations Immunizations up to date: Yes Hx Diphtheria, Pertussis, Tetanus Vaccination: Yes Physical Exam - Vital signs Vitals: Temp Pulse Resp BP Pulse Ox 97.6 F 72 20 169/105 H 99 04/07/17 14:16 04/07/17 14:16 04/07/17 14:16 04/07/17 14:16 04/07/17 14:16 - Extremities General lower extremity: Tender - left foot tenderness to ampution site of left 2/3 rd toes, minimal purulent drainage Course - Vital Signs Vital signs: Temp Pulse Resp BP Pulse Ox 97.6 F 72 20 169/105 H 99 04/07/17 14:16 04/07/17 14:16 04/07/17 14:16 04/07/17 14:16 04/07/17 14:16
[2017-04-07 16:36] LABS: ABSOLUTE EOSINOPHILS # (AUTO) 0.1 10^3/uL (0.0-0.6); ABSOLUTE LYMPHOCYTES (AUTO) 1.1 10^3/uL (0.5-4.7); ABSOLUTE MONOCYTES (AUTO) 0.5 10^3/uL (0.1-1.4); ABSOLUTE NEUT (AUTO) 2.8 10^3/uL (1.7-8.2); BASOPHILS % (AUTO) 0.9 % (0-2); EOSINOPHILS % (AUTO) 1.9 % (0-6); HEMATOCRIT 35.5 % (37.9-51.0); HEMOGLOBIN 11.4 g/dL (13.5-17.0); HGB HCT DIFFERENCE -1.3; LYMPHOCYTES % (AUTO) 23.6 % (13-45); MEAN CORPUSCULAR HEMOGLOBIN 28.4 pg (27.0-33.4); MEAN CORPUSCULAR HGB CONC 32.1 g/dL (32.0-36.0); MEAN CORPUSCULAR VOLUME 88 fl (80-97); MONOCYTES % (AUTO) 11.6 % (3-13); RED BLOOD COUNT 4.02 10^6/uL (4.35-5.55); RED CELL DISTRIBUTION WIDTH 16.1 % (11.5-14.0); WHITE BLOOD COUNT 4.5 10^3/uL (4.0-10.5)
[2017-04-07 16:47] LABS: ALANINE AMINOTRANSFERASE 33 U/L (21-72); ALBUMIN 4.5 g/dL (3.5-5.0); ALKALINE PHOSPHATASE 110 U/L (38-126); ANION GAP 12 (5-19); ASPARTATE AMINO TRANSFERASE 26 U/L (17-59); BILIRUBIN,DIRECT 0.3 mg/dL (0.0-0.4); BILIRUBIN,TOTAL 0.6 mg/dL (0.2-1.3); BLOOD UREA NITROGEN 27 mg/dL (7-20); CARBON DIOXIDE 22 mmol/L (22-30); CHLORIDE 93 mmol/L (98-107); CREATININE RESULT 1.67 mg/dL (0.52-1.25); GLUCOSE 215 mg/dL (75-110); POTASSIUM 4.5 mmol/L (3.6-5.0); SODIUM 126.6 mmol/L (137-145); TOTAL PROTEIN 8.5 g/dL (6.3-8.2)
--- NOTE | 2017-04-07 16:58 | RADIOLOGY REPORT (SQ) ---
EXAM DESCRIPTION: CHEST PA/LAT COMPLETED DATE/TIME: 04/07/2017 4:35 pm REASON FOR STUDY: fever, cough COMPARISON: 01/15/2017 EXAM PARAMETERS: NUMBER OF VIEWS: two views TECHNIQUE: Digital Frontal and Lateral radiographic views of the chest acquired. RADIATION DOSE: NA LIMITATIONS: none FINDINGS: LUNGS AND PLEURA: No opacities, masses or pneumothorax. No pleural effusion. MEDIASTINUM AND HILAR STRUCTURES: No masses or contour abnormalities. HEART AND VASCULAR STRUCTURES: Heart normal size. No evidence for failure. BONES: No acute findings. HARDWARE: None in the chest. OTHER: No other significant finding. IMPRESSION: NO SIGNIFICANT RADIOGRAPHIC FINDING IN THE CHEST. TECHNICAL DOCUMENTATION: JOB ID: [id number] [employer]- All Rights Reserved
[2017-04-07 17:09] LABS: APPEARANCE,URINE CLEAR; BILIRUBIN,URINE NEGATIVE (NEGATIVE); GLUCOSE, URINE >=500 mg/dL (NEGATIVE); KETONES,URINE NEGATIVE (NEGATIVE); LEUKOCYTE ESTERASE,URINE NEGATIVE (NEGATIVE); NITRITE,URINE NEGATIVE (NEGATIVE); PROTEIN,URINE NEGATIVE (NEGATIVE); URINE SPECIFIC GRAVITY 1.001; UROBILINOGEN,URINE NEGATIVE mg/dL (<2.0)
--- NOTE | 2017-04-07 17:23 | RADIOLOGY REPORT (SQ) ---
EXAM DESCRIPTION: FOOT LEFT COMPLETE COMPLETED DATE/TIME: 04/07/2017 4:35 pm REASON FOR STUDY: foot pain/swelling, hx amputation COMPARISON: December 2016 NUMBER OF VIEWS: Three views. TECHNIQUE: AP, lateral and oblique radiographic images acquired of the left foot. LIMITATIONS: None. FINDINGS: MINERALIZATION: Normal. BONES: By clinical history the patient has undergone amputation of the 2nd and 3rd digits. There is amputation of the 2nd and 3rd digits. There is cortical irregularity at the level of the distal ends of the 2nd and 3rd metatarsals. There is periosteal reaction at the level of the distal 2nd metatar margoth. Bone fragments are identified distal to the 2nd and 3rd metatarsals. The appearance is suspici ous for bony involvement by osteomyelitis. Clinical correlation is recommended. No acute fracture o r dislocation. JOINTS: Degenerative changes are identified at the level of the 1st MTP joint consistent with a hallu x valgus. SOFT TISSUES: There is soft tissue swelling. OTHER: No other significant finding. IMPRESSION: Status post amputation of the 2nd and 3rd digits. Findings suspicious for bony involvem ent by osteomyelitis at the level of the distal ends of the 2nd and 3rd metatarsals. Other findings as noted above TECHNICAL DOCUMENTATION: JOB ID: [id number] [employer]- All Rights Reserved
[2017-04-07] MEDS ORDERED: ONDANSETRON 4 MG TAB.RAPDIS SL ONE ×2 (19:08→19:19)
[2017-04-07] MEDS ORDERED: OXYCODONE-ACETAMINOPHEN 5-325 MG TABLET PO ONE (19:08)
--- NOTE | 2017-04-07 19:16 | ER Document Report ---
ED Extremity Problem, Lower - General Chief Complaint: Foot Pain Stated Complaint: NAUSEA Time Seen by Provider: 04/07/17 15:40 Mode of Arrival: Wheelchair Information source: Patient TRAVEL OUTSIDE OF THE [place] IN LAST 30 DAYS: No - HPI Patient complains to provider of: Pain, Swelling Location: Foot Occurred: Yesterday Where: Home Onset/Duration: Persistent Quality of pain: Achy Severity: Moderate Pain Level: 3 Recent injury: No Associated symptoms: Fever Notes: Patient is a 46-year-old male multiple medical problems including chronic osteomyelitis to the foot, with second and third toe amputations, chronic nonhealing ulceration, he is followed at the wound care clinic on a weekly basis and has home health care coming out to his house to check his wound, he reports over the past 24 hours the foot has become swollen, painful, with drainage, he reports a fever yesterday evening also reports cold-like symptoms with a nonproductive cough, also complains of nausea without abdominal pain - Related Data Allergies/Adverse Reactions: Penicillins Allergy (Verified 03/06/17 18:04) rash Past Medical History - General Information source: Patient - Social History Smoking Status: Current Every Day Smoker Family History: CAD, COPD, DM, Hyperlipidemia, Hypertension Patient has suicidal ideation: No Patient has homicidal ideation: No - Past Medical History Cardiac Medical History: Reports: Hx Coronary Artery Disease, Hx Heart Attack, Hx Hypercholesterolemia, Hx Hypertension, Hx Peripheral Vascular Disease, Hx Pulmonary Embolism Pulmonary Medical History: Reports: Hx COPD, Hx Pneumonia - 1 year ago Neurological Medical History: Reports: Hx Seizures - 4 years ago; Depakote stopped by his physician. Endocrine Medical History: Reports: Hx Diabetes Mellitus Type 1, Hx Diabetes Mellitus Type 2 - IDDM Renal/ Medical History: Reports: Hx Renal Insufficiency - Stage III renal failure. Denies: Hx Peritoneal Dialysis Malignancy Medical History: GI Medical History: Reports: Hx Hepatitis Musculoskeltal Medical History: Reports Hx Arthritis, Reports Hx Musculoskeletal Trauma Skin Medical History: Psychiatric Medical History: Reports: Hx Anxiety, Hx Bipolar Disorder, Hx Depression, Hx Post Traumatic Stress Disorder Traumatic Medical History: Reports: Hx Fractures - Knee pelvis and hand Infectious Medical History: Reports: Hx Hepatitis, Hx HIV - Patient reports no detectable viral count, Hx MRSA Past Surgical History: Reports: Hx Oral Surgery - Removal of most of teeth, Hx Orthopedic Surgery - right knee replacement, rt toe amputation; amputation 2 left toes., Other - Laser eye surgery - Immunizations Immunizations up to date: Yes Hx Diphtheria, Pertussis, Tetanus Vaccination: Yes Hx Pneumococcal Vaccination: 11/09/13 Review of Systems - Review of Systems Constitutional: No symptoms reported EENT: No symptoms reported Cardiovascular: No symptoms reported Respiratory: No symptoms reported Gastrointestinal: No symptoms reported Genitourinary: No symptoms reported Male Genitourinary: No symptoms reported Musculoskeletal: See HPI Skin: See HPI Hematologic/Lymphatic: No symptoms reported Neurological/Psychological: No symptoms reported -: Yes All other systems reviewed and negative Physical Exam - Vital signs Vitals: Temp Pulse Resp BP Pulse Ox 97.6 F 72 20 169/105 H 99 04/07/17 14:16 04/07/17 14:16 04/07/17 14:16 04/07/17 14:16 04/07/17 14:16 - General General appearance: Appears well In distress: None Notes: - General General appearance: Appears well, Alert In distress: None - HEENT Head: Normocephalic, Atraumatic Eyes: Normal Conjunctiva: Normal Extraocular movements intact: Yes Eyelashes: Normal Pupils: PERRL - Respiratory Respiratory status: No respiratory distress - Cardiovascular Rhythm: Regular - Abdominal Inspection: Normal - Back Back: Normal - Extremities General upper extremity: Normal inspection General lower extremity: Foot with second and third toe amputations, 1 x 2 cm open ulceration with no active drainage, no odor, mild surrounding erythema with mild tenderness - Neurological Neuro grossly intact: Yes Orientation: AAOx4 Ceres Coma Scale Eye Opening: Spontaneous Ceres Coma Scale Verbal: Oriented Noemy Coma Scale Motor: Obeys Commands Noemy Coma Scale Total: 15 - Psychological Associated symptoms: Normal affect, Normal mood - Skin Skin Temperature: Warm Skin Moisture: Dry Skin Color: Normal Course - Re-evaluation Re-evalutation: 04/07/17 19:16 Patient with chronic nonhealing ulcer to surgical site on left foot from previous second and third toe amputations chronic osteomyelitis as well, he is followed at the wound care clinic and has home health care coming to his home, labs show no signs of leukocytosis, his main complaint is pain as he has run out of pain medication, he has a follow-up at the wound care clinic on which is 2 days from now, he was provided with pain medication as well as nausea medication and advised to follow-up at the wound care clinic as scheduled or return if symptoms worsen, patient acknowledges understanding and agreement - Vital Signs Vital signs: Temp Pulse Resp BP Pulse Ox 97.6 F 73 16 168/103 H 100 04/07/17 18:46 04/07/17 18:46 04/07/17 18:46 04/07/17 18:46 04/07/17 18:46 - Laboratory Result Diagrams: 04/07/17 16:22 04/07/17 16:22 Laboratory results interpreted by me: 04/07/17 04/07/17 04/07/17 16:22 16:22 16:55 RBC 4.02 L Hgb 11.4 L Hct 35.5 L RDW 16.1 H Sodium 126.6 L Chloride 93 L BUN 27 H Creatinine 1.67 H Est GFR ( Amer) 53 L Est GFR (Non-Af Amer) 44 L Glucose 215 H Total Protein 8.5 H Urine Glucose (UA) >=500 H - Diagnostic Test Radiology reviewed: Image reviewed, Reports reviewed Discharge - Discharge Clinical Impression: Diabetic infection of left foot, Nausea Condition: Stable Disposition: HOME, SELF-CARE Instructions: Foot or Leg Ulcer ([facility]) Additional Instructions: Follow up with your primary care provider in one to 2 days. Return to the emergency room immediately if symptoms worsen or any additional concerns. Follow-up at the wound care clinic on as scheduled. Prescriptions: Oxycodone HCl/Acetaminophen [Percocet 5-325 mg Tablet] 1 - 2 tab PO ASDIR PRN # 15 tablet PRN Reason:
[2017-04-07] MEDS ORDERED: HYDROCODONE/ACETAMINOPHEN 5-325 MG 6 TAB/DSPK PO PRN (19:19)
[2017-04-07 19:52] VITALS: BP 157/99
== END 2017-04-07 19:40 | disposition home or self-care (01) ==
LOC: ER 13:43
DX: E11.621 Type 2 diabetes mellitus with foot ulcer (principal); T81.89XA Other complications of procedures, not elsewhere classified, initial encounter; L97.529 Non-pressure chronic ulcer of other part of left foot with unspecified severity; M79.672 Pain in left foot; R11.0 Nausea; I25.10 Atherosclerotic heart disease of native coronary artery without angina pectoris; E78.00 Pure hypercholesterolemia, unspecified; I10 Essential (primary) hypertension; M86.60 Other chronic osteomyelitis, unspecified site; Z79.4 Long term (current) use of insulin; Z86.19 Personal history of other infectious and parasitic diseases; Z21 Asymptomatic human immunodeficiency virus [HIV] infection status; Z86.14 Personal history of Methicillin resistant Staphylococcus aureus infection; Z86.711 Personal history of pulmonary embolism; Z96.651 Presence of right artificial knee joint; Z89.422 Acquired absence of other left toe(s); Z89.421 Acquired absence of other right toe(s); I25.2 Old myocardial infarction
CPT/HCPCS: 99283; 36415; 87040; 87070; 87205; 85025; 87077; 80053; 81001; 87186; 71020; 73630; A9270 ×3; S0119

== ENCOUNTER 2017-04-14 14:05 | Emergency (ER) | payer MEDICARE, MEDICAID ==
--- NOTE | 2017-04-14 14:36 | ER Document Report ---
ED Medical Screen (RME) - General Chief Complaint: Foot Pain Stated Complaint: LEFT FOOT PAIN Time Seen by Provider: 04/14/17 14:25 Notes: Patient is a 46-year-old male presented to the emergency department for pain to his left foot. Patient states he had 2 toes amputated on 12/12/16. Patient was evaluated on 04/07/17. Patient states he had a fever yesterday and Thursday along with some diarrhea. Patient has a history of diabetes mellitus, HIV, and hypertension. Patient's CD4 levels are undetectable. I have greeted and performed a rapid initial assessment of this patient. A comprehensive ED assessment and evaluation of the patient, analysis of test results and completion of the medical decision making process will be conducted by additional ED providers. TRAVEL OUTSIDE OF THE [place] IN LAST 30 DAYS: No - Related Data Allergies/Adverse Reactions: Penicillins Allergy (Verified 03/06/17 18:04) rash Past Medical History - Social History Chew tobacco use (# tins/day): No Frequency of alcohol use: Occasional Drug Abuse: Cocaine, Marijuana Family history: None - Past Medical History Cardiac Medical History: Reports: Hx Coronary Artery Disease, Hx Heart Attack, Hx Hypercholesterolemia, Hx Hypertension, Hx Peripheral Vascular Disease, Hx Pulmonary Embolism Pulmonary Medical History: Reports: Hx COPD, Hx Pneumonia - 1 year ago Neurological Medical History: Reports: Hx Seizures - 4 years ago; Depakote stopped by his physician. Endocrine Medical History: Reports: Hx Diabetes Mellitus Type 1, Hx Diabetes Mellitus Type 2 - IDDM Renal/ Medical History: Reports: Hx Renal Insufficiency - Stage III renal failure. Denies: Hx Peritoneal Dialysis Malignancy Medical History: GI Medical History: Reports: Hx Hepatitis Musculoskeltal Medical History: Reports Hx Arthritis, Reports Hx Musculoskeletal Trauma Skin Medical History: Psychiatric Medical History: Reports: Hx Anxiety, Hx Bipolar Disorder, Hx Depression, Hx Post Traumatic Stress Disorder Traumatic Medical History: Reports: Hx Fractures - Knee pelvis and hand Infectious Medical History: Reports: Hx Hepatitis, Hx HIV - Patient reports no detectable viral count, Hx MRSA Past Surgical History: Reports: Hx Oral Surgery - Removal of most of teeth, Hx Orthopedic Surgery - right knee replacement, rt toe amputation; amputation 2 left toes., Other - Laser eye surgery - Immunizations Immunizations up to date: Yes Hx Diphtheria, Pertussis, Tetanus Vaccination: Yes Physical Exam - Vital signs Vitals: Temp Pulse Resp BP Pulse Ox 98.4 F 82 18 166/97 H 97 04/14/17 14:14 04/14/17 14:14 04/14/17 14:14 04/14/17 14:14 04/14/17 14:14 - Notes Notes: GENERAL: Alert, interacts well. No acute distress. LUNGS: No respiratory distress. HEART: Regular rate. EXTREMITIES: Left foot is wrapped with bandages, blood on wound dressing on the lateral side of the foot. Course - Vital Signs Vital signs: Temp Pulse Resp BP Pulse Ox 98.4 F 82 18 166/97 H 97 04/14/17 14:14 04/14/17 14:14 04/14/17 14:14 04/14/17 14:14 04/14/17 14:14 - Laboratory Result Diagrams: 04/14/17 15:05 04/14/17 15:05 Laboratory results interpreted by me: 04/14/17 15:05 RBC 4.07 L Hgb 11.6 L Hct 35.2 L RDW 16.4 H Scribe Documentation - Scribe Written by Adolfo:: Adolfo Odell, 04/14/2017 14:52 acting as scribe for :: Giovanni
[2017-04-14] MEDS ORDERED: OXYCODONE-ACETAMINOPHEN 5-325 MG TABLET PO ONE (15:17)
[2017-04-14 15:22] LABS: ABSOLUTE BASOPHILS # (AUTO) 0.1 10^3/uL (0.0-0.2); ABSOLUTE EOSINOPHILS # (AUTO) 0.1 10^3/uL (0.0-0.6); ABSOLUTE LYMPHOCYTES (AUTO) 0.9 10^3/uL (0.5-4.7); ABSOLUTE MONOCYTES (AUTO) 0.6 10^3/uL (0.1-1.4); ABSOLUTE NEUT (AUTO) 5.1 10^3/uL (1.7-8.2); BASOPHILS % (AUTO) 1.2 % (0-2); EOSINOPHILS % (AUTO) 1.2 % (0-6); HEMATOCRIT 35.2 % (37.9-51.0); HEMOGLOBIN 11.6 g/dL (13.5-17.0); HGB HCT DIFFERENCE -0.4; LYMPHOCYTES % (AUTO) 13.1 % (13-45); MEAN CORPUSCULAR HEMOGLOBIN 28.5 pg (27.0-33.4); MEAN CORPUSCULAR HGB CONC 32.9 g/dL (32.0-36.0); MEAN CORPUSCULAR VOLUME 87 fl (80-97); MONOCYTES % (AUTO) 9.1 % (3-13); RED BLOOD COUNT 4.07 10^6/uL (4.35-5.55); RED CELL DISTRIBUTION WIDTH 16.4 % (11.5-14.0); SEGMENTED NEUTROPHILS % (AUTO) 75.4 % (42-78); WHITE BLOOD COUNT 6.8 10^3/uL (4.0-10.5)
--- NOTE | 2017-04-14 15:48 | RADIOLOGY REPORT (SQ) ---
EXAM DESCRIPTION: FOOT LEFT COMPLETE COMPLETED DATE/TIME: 04/14/2017 3:36 pm REASON FOR STUDY: Osteo eval COMPARISON: 04/07/2017, 12/27/2016, 06/01/2016 NUMBER OF VIEWS: Three views. TECHNIQUE: AP, lateral and oblique radiographic images acquired of the left foot. LIMITATIONS: None. FINDINGS: Patient is post amputation of the 2nd and 3rd toes. There is a persistent soft tissue ulc er at the surgical site, and fragmentation of the 2nd and 3rd metatarsal heads with 2nd metatarsal di aphysis periosteal new bone. These findings are similar compared to 04/07/2017 and likely represent s equela of osteomyelitis. There is forefoot soft tissue swelling. No radiopaque foreign body. Arterial vascular calcification . Hallux valgus deformity great toe similar compared to 04/07/2017, increased compared to 12/27/2016 IMPRESSION: Persistent soft tissue ulcer at the toe amputation site. Forefoot soft tissue swelling without radiopaque foreign body Stable fragmented appearance of the 2nd and 3rd metatarsal heads as compared to 04/07/2017, likely rel ated to treated osteomyelitis. TECHNICAL DOCUMENTATION: JOB ID: [id number] [employer]- All Rights Reserved
--- NOTE | 2017-04-14 16:21 | ER Document Report ---
ED Extremity Problem, Lower - General Chief Complaint: Foot Pain Stated Complaint: LEFT FOOT PAIN Time Seen by Provider: 04/14/17 14:25 Mode of Arrival: Ambulatory Information source: Patient Notes: Patient is a 46-year-old -German male with diabetes and recent amputation to his left foot of second and third digit December and January of this year and a chronic ulcer postop, post osteomyelitis treatment who presents to the ER today for left foot pain. This is the same left foot pain patient has been experiencing. He does get wound care to come to his house 3 days a week. TRAVEL OUTSIDE OF THE [place] IN LAST 30 DAYS: No - Related Data Allergies/Adverse Reactions: Penicillins Allergy (Verified 03/06/17 18:04) rash Past Medical History - General Information source: Patient - Social History Smoking Status: Current Every Day Smoker Chew tobacco use (# tins/day): No Frequency of alcohol use: Occasional Drug Abuse: Cocaine, Marijuana Family History: CAD, COPD, DM, Hyperlipidemia, Hypertension Patient has suicidal ideation: No Patient has homicidal ideation: No - Past Medical History Cardiac Medical History: Reports: Hx Coronary Artery Disease, Hx Heart Attack, Hx Hypercholesterolemia, Hx Hypertension, Hx Peripheral Vascular Disease, Hx Pulmonary Embolism Pulmonary Medical History: Reports: Hx COPD, Hx Pneumonia - 1 year ago Neurological Medical History: Reports: Hx Seizures - 4 years ago; Depakote stopped by his physician. Endocrine Medical History: Reports: Hx Diabetes Mellitus Type 1, Hx Diabetes Mellitus Type 2 - IDDM Renal/ Medical History: Reports: Hx Renal Insufficiency - Stage III renal failure. Denies: Hx Peritoneal Dialysis Malignancy Medical History: GI Medical History: Reports: Hx Hepatitis Musculoskeltal Medical History: Reports Hx Arthritis, Reports Hx Musculoskeletal Trauma Skin Medical History: Psychiatric Medical History: Reports: Hx Anxiety, Hx Bipolar Disorder, Hx Depression, Hx Post Traumatic Stress Disorder Traumatic Medical History: Reports: Hx Fractures - Knee pelvis and hand Infectious Medical History: Reports: Hx Hepatitis, Hx HIV - Patient reports no detectable viral count, Hx MRSA Past Surgical History: Reports: Hx Oral Surgery - Removal of most of teeth, Hx Orthopedic Surgery - right knee replacement, rt toe amputation; amputation 2 left toes., Other - Laser eye surgery - Immunizations Immunizations up to date: Yes Hx Diphtheria, Pertussis, Tetanus Vaccination: Yes Hx Pneumococcal Vaccination: 11/09/13 Review of Systems - Review of Systems Constitutional: No symptoms reported. denies: Chills, Fever EENT: No symptoms reported Cardiovascular: No symptoms reported Respiratory: No symptoms reported Gastrointestinal: No symptoms reported Genitourinary: No symptoms reported Male Genitourinary: No symptoms reported Musculoskeletal: See HPI Skin: See HPI Hematologic/Lymphatic: No symptoms reported Neurological/Psychological: No symptoms reported Physical Exam - Vital signs Vitals: Temp Pulse Resp BP Pulse Ox 98.4 F 82 18 166/97 H 97 04/14/17 14:14 04/14/17 14:14 04/14/17 14:14 04/14/17 14:14 04/14/17 14:14 - Notes Notes: PHYSICAL EXAMINATION: GENERAL: Chronically ill-appearing, but in no acute distress. HEAD: Atraumatic, normocephalic. EYES: Pupils equal round and reactive to light, extraocular movements intact, sclera anicteric, conjunctiva are normal. NECK: Normal range of motion, supple without lymphadenopathy LUNGS: CTAB and equal. No wheezes rales or rhonchi. HEART: Regular rate and rhythm without murmurs EXTREMITIES:see skin below, Normal range of motion, no pitting edema. No cyanosis. NEUROLOGICAL: Cranial nerves grossly intact. Normal sensory/motor exams. PSYCH: Normal mood, normal affect. SKIN: Warm, Dry, normal turgor, amputated toes, 2nd and 3rd digits missing, 3cm by 1cm ulcer to dorsal left foot, not infected, 1cm in diameter ulcer to lateral left foot, not infected, minimal bloody discharge but not purulent Course - Re-evaluation Re-evalutation: 04/14/17 16:24 labs are unremarkable today including normal white blood cell count. Pt appears to have chronic wounds to left foot, no changes on x ray, stable post amputation. - Vital Signs Vital signs: Temp Pulse Resp BP Pulse Ox 98.4 F 82 18 166/97 H 97 04/14/17 14:14 04/14/17 14:14 04/14/17 14:14 04/14/17 14:14 04/14/17 14:14 - Laboratory Result Diagrams: 04/14/17 15:05 04/14/17 15:05 Laboratory results interpreted by me: 04/14/17 15:05 RBC 4.07 L Hgb 11.6 L Hct 35.2 L RDW 16.4 H Discharge - Discharge Clinical Impression: Foot ulcer, left Qualifiers: Non-pressure ulcer stage: unspecified non-pressure ulcer stage Qualified Code(s ): L97.529 - Non-pressure chronic ulcer of other part of left foot with unspecified severity Condition: Stable Disposition: HOME, SELF-CARE Instructions: Foot or Leg Ulcer ([facility]) Additional Instructions: Return immediately for any new or worsening symptoms. Follow up with primary care provider, call tomorrow to make followup appointment. Prescriptions: Sulfamethoxazole/Trimethoprim [Bactrim Ds Tablet] 1 each PO BID #20 tablet Referrals: RA IGNACIO MD [Primary Care Provider] - Follow up as needed
[2017-04-14] MEDS ORDERED: SULFAMETHOXAZOLE/TRIMETHOPRIM 800-160 MG TABLET PO ONE (16:27)
[2017-04-14 16:40] VITALS: BP 157/94
== END 2017-04-14 16:39 | disposition home or self-care (01) ==
LOC: ER 14:05
DX: L97.529 Non-pressure chronic ulcer of other part of left foot with unspecified severity (principal); M79.672 Pain in left foot; F17.200 Nicotine dependence, unspecified, uncomplicated
CPT/HCPCS: 99284; 36415; 87040; 87070; 87205; 85025; 87075; 87077; 87186; 73630; A9270 ×2

== ENCOUNTER 2017-04-16 11:03 | Emergency (ER) | payer MEDICARE, MEDICAID ==
--- NOTE | 2017-04-16 12:26 | ER Document Report ---
ED Blood Sugar Problem - General Chief Complaint: High Blood Sugar Stated Complaint: WEAKNESS Time Seen by Provider: 04/16/17 12:24 Notes: Patient is a 46-year-old male, past medical history diabetes, chronic left foot wound (followed by [facility]), cocaine abuse, presents from the wound care clinic after he had a positive blood culture from his visit 4 days ago. He is taking Bactrim as directed. Looking through his old culture and wound culture, he grew out MSSA and strep, and the MSSA is sensitive to Bactrim. His blood sugar is also 400 today and he said that he took his insulin this morning. He has not been drinking much water. Denies fevers, nausea, vomiting , increased drainage or pain in his left foot wound. TRAVEL OUTSIDE OF THE [place] IN LAST 30 DAYS: No - Related Data Allergies/Adverse Reactions: Penicillins Allergy (Verified 04/16/17 11:35) rash Past Medical History - General Information source: Patient - Social History Smoking Status: Current Some Day Smoker Frequency of alcohol use: Rare Family History: CAD, COPD, DM, Hyperlipidemia, Hypertension Patient has suicidal ideation: No Patient has homicidal ideation: No - Past Medical History Cardiac Medical History: Reports: Hx Coronary Artery Disease, Hx Heart Attack, Hx Hypercholesterolemia, Hx Hypertension, Hx Peripheral Vascular Disease, Hx Pulmonary Embolism Pulmonary Medical History: Reports: Hx Asthma, Hx COPD, Hx Pneumonia - 1 year ago Neurological Medical History: Reports: Hx Seizures - 4 years ago; Depakote stopped by his physician. Endocrine Medical History: Reports: Hx Diabetes Mellitus Type 1, Hx Diabetes Mellitus Type 2 - IDDM Renal/ Medical History: Reports: Hx Renal Insufficiency - Stage III renal failure. Denies: Hx Peritoneal Dialysis Malignancy Medical History: GI Medical History: Reports: Hx Hepatitis Musculoskeltal Medical History: Reports Hx Arthritis, Reports Hx Musculoskeletal Trauma Skin Medical History: Psychiatric Medical History: Reports: Hx Anxiety, Hx Bipolar Disorder, Hx Depression - & anxiety, Hx Post Traumatic Stress Disorder Traumatic Medical History: Reports: Hx Fractures - Knee pelvis and hand Infectious Medical History: Reports: Hx Hepatitis, Hx HIV - Patient reports no detectable viral count, Hx MRSA Past Surgical History: Reports: Hx Oral Surgery - Removal of most of teeth, Hx Orthopedic Surgery - right knee replacement, rt toe amputation; amputation 2 left toes., Other - Laser eye surgery - Immunizations Immunizations up to date: Yes Hx Diphtheria, Pertussis, Tetanus Vaccination: Yes Hx Pneumococcal Vaccination: 11/09/13 Review of Systems - Review of Systems Notes: REVIEW OF SYSTEMS: CONSTITUTIONAL: -fevers, -chills EENT: -eye pain, -difficulty swallowing, -nasal congestion CARDIOVASCULAR:-chest pain, -syncope. RESPIRATORY: -cough, -SOB GASTROINTESTINAL: -abdominal pain, -nausea, -vomiting, -diarrhea GENITOURINARY: -dysuria, -hematuria MUSCULOSKELETAL: -back pain, -neck pain SKIN: +chronic left foot wound HEMATOLOGIC: -easy bruising or bleeding. LYMPHATIC: -swollen, enlarged glands. NEUROLOGICAL: -altered mental status or loss of consciousness, -headache, - neurologic symptoms PSYCHIATRIC: -anxiety, -depression. ALL OTHER SYSTEMS REVIEWED AND NEGATIVE. Physical Exam - Vital signs Vitals: Resp Pulse Ox 14 99 04/16/17 11:09 04/16/17 11:09 - Notes Notes: PHYSICAL EXAMINATION: GENERAL: Well-appearing, well-nourished and in no acute distress. HEAD: Atraumatic, normocephalic. EYES: Pupils equal round and reactive to light, extraocular movements intact, sclera anicteric, conjunctiva are normal. ENT: nares patent, oropharynx clear without exudates. Moist mucous membranes. NECK: Normal range of motion, supple without lymphadenopathy LUNGS: Breath sounds clear to auscultation bilaterally and equal. No wheezes rales or rhonchi. HEART: Regular rate and rhythm without murmurs ABDOMEN: Soft, nontender, normoactive bowel sounds. No guarding, no rebound. No masses appreciated. EXTREMITIES: Normal range of motion, no pitting or edema. No cyanosis. NEUROLOGICAL: Cranial nerves grossly intact. Normal speech, normal gait. Normal sensory and motor exams. PSYCH: Normal mood, normal affect. SKIN: Chronic left lateral foot wound without drainage or surrounding erythema Course - Re-evaluation Re-evalutation: Patient appears well. No evidence of surrounding infection and not septic. His sensitivities returned and he is growing MSSA and Strep. The MSSA is sensitive to Bactrim. Will add Clindamycin to help cover Strep. He has hyperglycemia without an anion gap. Also, he has slight hyperkalemia and his creatinine is at baseline. Provided him with IV Insulin to help with his hyperglycemia and hyperkalemia. Gave return precautions and he understands. He will go to the [facility] for further treatment of his diabetic foot wound. - Vital Signs Vital signs: Temp Pulse Resp BP Pulse Ox 14 171/106 H 100 04/16/17 13:28 04/16/17 13:28 04/16/17 13:28 - Laboratory Result Diagrams: 04/16/17 11:40 04/16/17 11:40 Laboratory results interpreted by me: 04/16/17 04/16/17 04/16/17 11:09 11:40 11:40 RBC 3.87 L Hgb 11.1 L Hct 34.2 L RDW 16.4 H Monocytes % 16.4 H Potassium 5.5 H BUN 23 H Creatinine 1.96 H Est GFR ( Amer) 44 L Est GFR (Non-Af Amer) 37 L Glucose 341 H POC Glucose 368 H Discharge - Discharge Clinical Impression: Hyperglycemia CKD (chronic kidney disease) Qualifiers: Chronic kidney disease stage: unspecified stage Qualified Code(s): N18.9 - Chronic kidney disease, unspecified Diabetic ulcer of left foot Qualifiers: Diabetic foot ulcer location: toe Diabetes mellitus type: type 2 Non-pressure ulcer stage: limited to breakdown of skin Qualified Code(s): E11.621 - Type 2 diabetes mellitus with foot ulcer Condition: Stable Disposition: HOME, SELF-CARE Additional Instructions: Continue to take the Bactrim to help with your foot wound. Return to the ER if you notice worsening redness or any other concerns. Follow-up with the Wound Care Clinic for further treatment of your chronic wound. Always take your insulin. HYPERGLYCEMIA (HIGH BLOOD SUGAR): You have an abnormally high blood sugar. Not all high blood sugar requires long-term treatment. High blood sugar can be due to medications, , or the stress of illness. (These cases are "borderline diabetes.") If the doctor feels your high blood sugar might resolve with time, you may not require treatment now. It's very important that you follow through, to see if the blood sugar returns to normal levels. Uncontrolled high blood sugar leads to early heart disease, strokes, nerve damage, eye damage, and kidney damage. Call the physician if there is faintness, excess sleepiness, or very rapid breathing. DIABETES: You have an abnormally high blood sugar, suspicious for diabetes. Not all high blood sugar requires long-term treatment. High blood sugar can be due to medications, , or the stress of illness. (These cases are "borderline diabetes.") If the doctor feels your high blood sugar might get better with time, you may not require treatment now. It's very important that you follow through. Uncontrolled high blood sugar leads to early heart disease, strokes, nerve damage, eye damage, and kidney damage. All diabetics should follow a diet designed to control the blood sugar. Overweight diabetics should exercise regularly and lose weight. If this is not sufficient to control the blood sugar, pills or insulin shots are necessary. Younger people who develop diabetes almost always require insulin daily. Home testing of blood sugars or urine sugar is required. Diabetic teaching is available to help you figure insulin doses and monitor the blood sugar. Call the physician if there is faintness, excess sleepiness, or very rapid breathing. If hypoglycemia (LOW blood sugar) develops, symptoms are shakiness, weakness, sweating, and confusion. In this case, you should eat or drink something with sugar at once. INSULIN: Insulin is a natural hormone that lowers blood sugar. Normal blood sugar prevents complications of diabetes. For most diabetics, insulin is the best way to treat the illness. Be sure you know how to measure the insulin correctly. Insulin is measured in "units." There are three types of insulin: N (NPH or long acting), R (regular or short acting), and L (Lente or very long acting). Be sure you are using the right amount of each type. Insulin must be injected into the fat. You can use the abdomen, upper arms , and thighs. Select a different injection site every time. Wipe the site with alcohol before injecting. When first starting insulin, some adjusting of the insulin dose is necessary. Keep a record of each insulin dose and time of injection, and of the blood sugar and the time you test it. Sometimes insulin can make the blood sugar too low. If you become dizzy, sweaty, shaky, or confused, you may be having a hypoglycemic episode. Immediately use juice or some other sweet food. Call the doctor if the symptoms don't go away. FOLLOW-UP CARE: If you have been referred to a physician for follow-up care, call the physician s office for an appointment as you were instructed or within the next two days. If you experience worsening or a significant change in your symptoms, notify the physician immediately or return to the Emergency Department at any time for re-evaluation. Prescriptions: Clindamycin HCl 300 mg PO Q8H #21 capsule Referrals: DORIE QUINTEROS, MEDICAL ADMINISTRATOR-C [Primary Care Provider] - Follow up as needed
[2017-04-16 12:41] LABS: ABSOLUTE EOSINOPHILS # (AUTO) 0.1 10^3/uL (0.0-0.6); ABSOLUTE MONOCYTES (AUTO) 0.7 10^3/uL (0.1-1.4); ABSOLUTE NEUT (AUTO) 2.5 10^3/uL (1.7-8.2); BASOPHILS % (AUTO) 0.5 % (0-2); EOSINOPHILS % (AUTO) 2.8 % (0-6); HEMATOCRIT 34.2 % (37.9-51.0); HEMOGLOBIN 11.1 g/dL (13.5-17.0); HGB HCT DIFFERENCE -0.9; LYMPHOCYTES % (AUTO) 23.5 % (13-45); MEAN CORPUSCULAR HEMOGLOBIN 28.6 pg (27.0-33.4); MEAN CORPUSCULAR HGB CONC 32.3 g/dL (32.0-36.0); MEAN CORPUSCULAR VOLUME 88 fl (80-97); MONOCYTES % (AUTO) 16.4 % (3-13); RED BLOOD COUNT 3.87 10^6/uL (4.35-5.55); RED CELL DISTRIBUTION WIDTH 16.4 % (11.5-14.0); SEGMENTED NEUTROPHILS % (AUTO) 56.8 % (42-78); WHITE BLOOD COUNT 4.4 10^3/uL (4.0-10.5)
[2017-04-16 12:46] LABS: ALANINE AMINOTRANSFERASE 30 U/L (21-72); ALBUMIN 4.3 g/dL (3.5-5.0); ALKALINE PHOSPHATASE 118 U/L (38-126); ANION GAP 13 (5-19); ASPARTATE AMINO TRANSFERASE 25 U/L (17-59); BILIRUBIN,DIRECT 0.4 mg/dL (0.0-0.4); BILIRUBIN,TOTAL 0.4 mg/dL (0.2-1.3); BLOOD UREA NITROGEN 23 mg/dL (7-20); CALCIUM 9.6 mg/dL (8.4-10.2); CARBON DIOXIDE 23 mmol/L (22-30); CHLORIDE 102 mmol/L (98-107); CREATININE RESULT 1.96 mg/dL (0.52-1.25); GLUCOSE 341 mg/dL (75-110); POTASSIUM 5.5 mmol/L (3.6-5.0); SODIUM 137.5 mmol/L (137-145); TOTAL PROTEIN 8.1 g/dL (6.3-8.2)
[2017-04-16] MEDS ORDERED: INSULIN REG, HUMAN 100 UNIT/ML 3 ML VIAL (PYX) IV ONE (12:58)
[2017-04-16] MEDS ORDERED: CLINDAMYCIN HCL 150 MG CAPSULE PO ONE (13:12)
[2017-04-16 13:35] VITALS: BP 171/106
== END 2017-04-16 13:37 | disposition home or self-care (01) ==
LOC: ER 11:03
DX: E11.621 Type 2 diabetes mellitus with foot ulcer (principal); E11.65 Type 2 diabetes mellitus with hyperglycemia; R53.1 Weakness; N18.9 Chronic kidney disease, unspecified; F17.200 Nicotine dependence, unspecified, uncomplicated
CPT/HCPCS: 99285; 36415; 87040; 82962; 85025; 80053; A9270 ×2; J1815

== ENCOUNTER 2017-04-22 08:50 | Emergency (ER) | payer MEDICARE, MEDICAID ==
--- NOTE | 2017-04-22 09:08 | ER Document Report ---
ED Blood Sugar Problem - General Mode of Arrival: Medic Information source: Patient TRAVEL OUTSIDE OF THE [place] IN LAST 30 DAYS: No - HPI Patient complains to provider of: High Blood Sugar Onset/Duration: Gradual, Persistent <DOROTHY PIERSONSSICA - Last Filed: 04/22/17 09:38> <JOSE SIERRAALL - Last Filed: 04/22/17 11:45> - General Chief Complaint: High Blood Sugar Stated Complaint: BLOOD SUGAR PROBLEMS Time Seen by Provider: 04/22/17 09:05 Notes: Patient is a 46-year-old male, with significant medical history including diabetes type 2, HIV, CAD, and Stage III renal failure, presenting to the emergency department with complaint of high blood sugar and poorly healing diabetic wound on his left foot. Patient was last seen by the wound care clinic 1 week ago. Patient has a home nurse that comes to change the dressing, and patient states that she told him to come to the emergency room for his blood sugar and his foot pain. Patient used to see a pain management clinic, but states that he does not see them anymore because he did not get along with them. Patient is frequently positive for cocaine and marijuana on his urine drug screen here in the emergency department. Patient is also concerned about his foot swelling, stating that he elevates his foot most of the day. seal delivery vehicle team technician that cared for the patient 04/16/2017 notes that his wounds look much better than they did on his last visit to the emergency department. Patient goes to [facility] for his primary care management. (MONICA PIESRON) - Related Data Allergies/Adverse Reactions: Penicillins Allergy (Verified 04/16/17 11:35) rash Past Medical History - General Information source: Patient, [facility], [facility] Records - Social History Smoking Status: Current Every Day Smoker Cigarette use (# per day): Yes Drug Abuse: Cocaine, Marijuana Family History: Reviewed & Not Pertinent, CAD, COPD, DM, Hyperlipidemia, Hypertension Patient has suicidal ideation: No Patient has homicidal ideation: No - Past Medical History Cardiac Medical History: Reports: Hx Coronary Artery Disease, Hx Heart Attack, Hx Hypercholesterolemia, Hx Hypertension, Hx Peripheral Vascular Disease, Hx Pulmonary Embolism Pulmonary Medical History: Reports: Hx Asthma, Hx COPD, Hx Pneumonia - 1 year ago Neurological Medical History: Reports: Hx Seizures - 4 years ago; Depakote stopped by his physician. Endocrine Medical History: Reports: Hx Diabetes Mellitus Type 2 - IDDM Renal/ Medical History: Reports: Hx Renal Insufficiency - Stage III renal failure Malignancy Medical History: GI Medical History: Reports: Hx Hepatitis Musculoskeltal Medical History: Reports Hx Arthritis, Reports Hx Musculoskeletal Trauma Skin Medical History: Reports Hx MRSA Psychiatric Medical History: Reports: Hx Anxiety, Hx Bipolar Disorder, Hx Depression - & anxiety, Hx Post Traumatic Stress Disorder Traumatic Medical History: Reports: Hx Fractures - Knee pelvis and hand Infectious Medical History: Reports: Hx Hepatitis, Hx HIV - Patient reports no detectable viral count, Hx MRSA Past Surgical History: Reports: Hx Oral Surgery - Removal of most of teeth, Hx Orthopedic Surgery - right knee replacement, rt toe amputation; amputation 2 left toes., Other - Laser eye surgery - Immunizations Immunizations up to date: Yes Hx Diphtheria, Pertussis, Tetanus Vaccination: Yes Hx Pneumococcal Vaccination: 11/09/13 <MONICA PIERSON - Last Filed: 04/22/17 09:38> Review of Systems - Review of Systems Constitutional: See HPI, Other - Elevated blood glucose EENT: No symptoms reported Cardiovascular: No symptoms reported Respiratory: No symptoms reported Gastrointestinal: No symptoms reported Genitourinary: No symptoms reported Male Genitourinary: No symptoms reported Musculoskeletal: See HPI, Other - Left foot pain Skin: No symptoms reported Hematologic/Lymphatic: No symptoms reported Neurological/Psychological: No symptoms reported -: Yes All other systems reviewed and negative <MONICA PIERSON - Last Filed: 04/22/17 09:38> Physical Exam - General General appearance: Alert - HEENT Head: Normocephalic, Atraumatic Eyes: Periorbital ecchymosis - Left Pupils: PERRL - Respiratory Respiratory status: No respiratory distress Chest status: Nontender - Cardiovascular Rhythm: Regular - Abdominal Inspection: Normal Tenderness: Nontender - Back Back: Normal, Nontender - Extremities General upper extremity: Normal inspection, Nontender Foot: Tender, Edema - L>R, Other - Second and third toes amputated, gauze packed in wound. Small diabetic ulcer to lateral left foot. - Neurological Neuro grossly intact: Yes Cognition: Normal Orientation: AAOx4 Noemy Coma Scale Eye Opening: Spontaneous [place] Coma Scale Verbal: Oriented [place] Coma Scale Motor: Obeys Commands [place] Coma Scale Total: 15 Speech: Normal - Psychological Associated symptoms: Normal affect, Normal mood - Skin Skin Temperature: Warm Skin Moisture: Dry Skin Color: Other - See extremity exam <MONICA PIERSON - Last Filed: 04/22/17 09:38> Course - Laboratory Result Diagrams: 04/22/17 08:55 04/22/17 08:55 <MONICA PIERSON - Last Filed: 04/22/17 09:38> - Laboratory Result Diagrams: 04/22/17 08:55 04/22/17 08:55 <DALE SIERRA - Last Filed: 04/22/17 11:45> - Vital Signs Vital signs: Temp Pulse Resp BP Pulse Ox 98.5 F 69 12 151/98 H 96 04/22/17 08:55 04/22/17 08:55 04/22/17 10:01 04/22/17 10:01 04/22/17 10:01 - Laboratory Laboratory results interpreted by me: 04/22/17 04/22/17 04/22/17 08:55 08:55 08:55 RBC 3.75 L Hgb 10.6 L Hct 32.5 L RDW 15.4 H Monocytes % 14.9 H Basophils % 2.2 H Sodium 133.6 L Potassium 5.1 H Chloride 97 L BUN 27 H Creatinine 1.83 H Est GFR ( Amer) 48 L Est GFR (Non-Af Amer) 40 L Glucose 435 H* Hemoglobin A1c % 10.7 H Urine Glucose (UA) 04/22/17 10:42 RBC Hgb Hct RDW Monocytes % Basophils % Sodium Potassium Chloride BUN Creatinine Est GFR ( Amer) Est GFR (Non-Af Amer) Glucose Hemoglobin A1c % Urine Glucose (UA) >=500 H Discharge <MONICA PIERSON - Last Filed: 04/22/17 09:38> <DALE SIERRA - Last Filed: 04/22/17 11:45> - Discharge Clinical Impression: Foot pain, left Hyperglycemia due to type 2 diabetes mellitus Qualifiers: Diabetes mellitus senior living insulin use: unspecified senior living insulin use status Qualified Code(s): E11.65 - Type 2 diabetes mellitus with hyperglycemia Condition: Stable Disposition: HOME, SELF-CARE Additional Instructions: Your diabetes remains poorly controlled. You should check your sugars frequently and administer sliding scale insulin to get better glycemic control. You should elevate your foot above your heart is much as possible. Follow-up with the wound care clinic this week to allow them to inspect your foot wound. Follow-up with your primary care provider for pain management. Adolfo Attestation: 04/22/17 11:45 I personally performed the services described in the documentation, reviewed and edited the documentation which was dictated to the scribe in my presence, and it accurately records my words and actions. (DALE SIERRA) Scribe Documentation - Scribe Written by Adolfo:: Adolfo Alanis, 04/22/2017 [id number] acting as scribe for :: Bartolome <MONICA PIERSON - Last Filed: 04/22/17 09:38>
[2017-04-22 09:20] LABS: ABSOLUTE BASOPHILS # (AUTO) 0.1 10^3/uL (0.0-0.2); ABSOLUTE EOSINOPHILS # (AUTO) 0.2 10^3/uL (0.0-0.6); ABSOLUTE LYMPHOCYTES (AUTO) 1.6 10^3/uL (0.5-4.7); ABSOLUTE MONOCYTES (AUTO) 0.7 10^3/uL (0.1-1.4); ABSOLUTE NEUT (AUTO) 2.4 10^3/uL (1.7-8.2); BASOPHILS % (AUTO) 2.2 % (0-2); EOSINOPHILS % (AUTO) 3.9 % (0-6); HEMATOCRIT 32.5 % (37.9-51.0); HEMOGLOBIN 10.6 g/dL (13.5-17.0); HGB HCT DIFFERENCE -0.7; LYMPHOCYTES % (AUTO) 31.5 % (13-45); MEAN CORPUSCULAR HEMOGLOBIN 28.3 pg (27.0-33.4); MEAN CORPUSCULAR HGB CONC 32.6 g/dL (32.0-36.0); MEAN CORPUSCULAR VOLUME 87 fl (80-97); MONOCYTES % (AUTO) 14.9 % (3-13); RED BLOOD COUNT 3.75 10^6/uL (4.35-5.55); RED CELL DISTRIBUTION WIDTH 15.4 % (11.5-14.0); SEGMENTED NEUTROPHILS % (AUTO) 47.5 % (42-78)
[2017-04-22 09:37] LABS: ALANINE AMINOTRANSFERASE 21 U/L (21-72); ALBUMIN 4.2 g/dL (3.5-5.0); ALKALINE PHOSPHATASE 126 U/L (38-126); ANION GAP 13 (5-19); ASPARTATE AMINO TRANSFERASE 18 U/L (17-59); BILIRUBIN,DIRECT 0.3 mg/dL (0.0-0.4); BILIRUBIN,TOTAL 0.4 mg/dL (0.2-1.3); BLOOD UREA NITROGEN 27 mg/dL (7-20); CALCIUM 9.3 mg/dL (8.4-10.2); CARBON DIOXIDE 24 mmol/L (22-30); CHLORIDE 97 mmol/L (98-107); CREATININE RESULT 1.83 mg/dL (0.52-1.25); POTASSIUM 5.1 mmol/L (3.6-5.0); SODIUM 133.6 mmol/L (137-145); TOTAL PROTEIN 7.9 g/dL (6.3-8.2)
[2017-04-22 09:48] LABS: VENOUS BLOOD HCO3 25.1 mmol/L (20-32); VENOUS BLOOD PCO2 47.5 mmHg (35-63); VENOUS BLOOD PH 7.34 (7.30-7.42)
[2017-04-22 09:56] LABS: GLUCOSE 435 mg/dL (75-110)
[2017-04-22 11:01] LABS: APPEARANCE,URINE CLEAR; BILIRUBIN,URINE NEGATIVE (NEGATIVE); GLUCOSE, URINE >=500 mg/dL (NEGATIVE); KETONES,URINE NEGATIVE (NEGATIVE); LEUKOCYTE ESTERASE,URINE NEGATIVE (NEGATIVE); NITRITE,URINE NEGATIVE (NEGATIVE); PROTEIN,URINE NEGATIVE (NEGATIVE); URINE SPECIFIC GRAVITY 1.018; UROBILINOGEN,URINE NEGATIVE mg/dL (<2.0)
[2017-04-22] MEDS ORDERED: INSULIN REG, HUMAN 100 UNIT/ML 3 ML VIAL (PYX) SUBCUT ONE (11:04)
[2017-04-22 12:32] VITALS: BP 150/110
== END 2017-04-22 12:42 | disposition home or self-care (01) ==
LOC: ER 08:50
DX: E11.65 Type 2 diabetes mellitus with hyperglycemia (principal); M79.672 Pain in left foot; B20 Human immunodeficiency virus [HIV] disease; I25.10 Atherosclerotic heart disease of native coronary artery without angina pectoris; N18.3 Chronic kidney disease, stage 3 (moderate); F17.210 Nicotine dependence, cigarettes, uncomplicated
CPT/HCPCS: 99285; 36415; 87040; 82962; 85025; 80053; 81001; 83036; 82803; A9270; J1815

== ENCOUNTER 2017-04-24 11:50 | Inpatient (IN) | payer MEDICARE, MEDICAID ==
[2017-04-24] MEDS ORDERED: NORMAL SALINE 1000 ML 1,000 ML IV PRN (12:21)
--- NOTE | 2017-04-24 12:21 | ER Document Report ---
ED Medical Screen (RME) - General Chief Complaint: Foot Pain Stated Complaint: LEFT FOOT PAIN Time Seen by Provider: 04/24/17 12:16 Mode of Arrival: Ambulatory Information source: Patient TRAVEL OUTSIDE OF THE [place] IN LAST 30 DAYS: No - HPI Patient complains to provider of: Foot pain Onset: Last week Onset/Duration: Persistent, Worse Quality of pain: Achy, Pressure Severity: Moderate Pain Level: 4 Notes: 04/24/17 12:21 Patient is a 46-year-old male who presents to the emergency room complaining of left foot pain, he states it has been going on for 3 weeks but worsened over the past week, he denies any injury, does have a history of the second and third toes being amputated back in December related to diabetic illness, he was seen at the wound care clinic last week and was seen in the emergency room recently, was started on clindamycin, reports having some nausea and vomiting 2 today as well unsure if it is related to clindamycin usage - Related Data Allergies/Adverse Reactions: Penicillins Allergy (Verified 04/24/17 12:05) rash Past Medical History - Social History Family history: None - Past Medical History Cardiac Medical History: Reports: Hx Coronary Artery Disease, Hx Heart Attack, Hx Hypercholesterolemia, Hx Hypertension, Hx Peripheral Vascular Disease, Hx Pulmonary Embolism Pulmonary Medical History: Reports: Hx Asthma, Hx COPD, Hx Pneumonia - 1 year ago Neurological Medical History: Reports: Hx Seizures - 4 years ago; Depakote stopped by his physician. Endocrine Medical History: Reports: Hx Diabetes Mellitus Type 1, Hx Diabetes Mellitus Type 2 - IDDM Renal/ Medical History: Reports: Hx Renal Insufficiency - Stage III renal failure. Denies: Hx Peritoneal Dialysis Malignancy Medical History: GI Medical History: Reports: Hx Hepatitis Musculoskeltal Medical History: Reports Hx Arthritis, Reports Hx Musculoskeletal Trauma Skin Medical History: Reports Hx MRSA Psychiatric Medical History: Reports: Hx Anxiety, Hx Bipolar Disorder, Hx Depression - & anxiety, Hx Post Traumatic Stress Disorder Traumatic Medical History: Reports: Hx Fractures - Knee pelvis and hand Infectious Medical History: Reports: Hx Hepatitis, Hx HIV - Patient reports no detectable viral count, Hx MRSA Past Surgical History: Reports: Hx Oral Surgery - Removal of most of teeth, Hx Orthopedic Surgery - right knee replacement, rt toe amputation; amputation 2 left toes., Other - Laser eye surgery - Immunizations Immunizations up to date: Yes Hx Diphtheria, Pertussis, Tetanus Vaccination: Yes Physical Exam - Vital signs Vitals: Temp Pulse Resp BP Pulse Ox 98.1 F 81 20 98/63 L 97 04/24/17 12:05 04/24/17 12:05 04/24/17 12:05 04/24/17 12:05 04/24/17 12:05 Course - Vital Signs Vital signs: Temp Pulse Resp BP Pulse Ox 98.1 F 81 20 98/63 L 97 04/24/17 12:05 04/24/17 12:05 04/24/17 12:05 04/24/17 12:05 04/24/17 12:05
--- NOTE | 2017-04-24 13:26 | ER Document Report ---
ED Extremity Problem, Lower - General Mode of Arrival: Ambulatory Information source: Patient TRAVEL OUTSIDE OF THE [place] IN LAST 30 DAYS: No - HPI Patient complains to provider of: Pain Location: Foot - Left Context: Other <MONICA PIERSON - Last Filed: 04/24/17 14:09> <DALE SIERRA - Last Filed: 04/24/17 15:58> - General Chief Complaint: Foot Pain Stated Complaint: LEFT FOOT PAIN Time Seen by Provider: 04/24/17 12:16 Notes: Patient is a 46-year-old male, with medical history including diabetes type 2, HIV, CAD, and Stage III renal failure, presenting to the emergency department today for continued left foot pain associated with his diabetic wound and 2nd and 3rd toe amputation. Patient was seen here 2 days ago for similar complaint. Patient states he was seen by his wound care clinic yesterday, and he states that Dr. Worthy told him that he needed to come back to the emergency department because they saw an infection in his bone on the x-ray. Patient primarily complains of tenderness to his bunion and top of his foot. After speaking with the wound care clinic, they say that the patient was at the office yesterday, but was not officially seen. He saw the community recreation programmer, who did tell him to come into the emergency department, so he decided to wait until today. (MONICA PIERSON) - Related Data Allergies/Adverse Reactions: Penicillins Allergy (Verified 04/24/17 12:05) rash Past Medical History - General Information source: Patient - Social History Smoking Status: Current Some Day Smoker Chew tobacco use (# tins/day): No Frequency of alcohol use: Social Drug Abuse: Cocaine Family History: Reviewed & Not Pertinent, CAD, COPD, DM, Hyperlipidemia, Hypertension Patient has suicidal ideation: No Patient has homicidal ideation: No - Past Medical History Cardiac Medical History: Reports: Hx Coronary Artery Disease, Hx Heart Attack, Hx Hypercholesterolemia, Hx Hypertension, Hx Peripheral Vascular Disease, Hx Pulmonary Embolism Pulmonary Medical History: Reports: Hx Asthma, Hx COPD, Hx Pneumonia - 1 year ago Neurological Medical History: Reports: Hx Seizures - 4 years ago; Depakote stopped by his physician. Endocrine Medical History: Reports: Hx Diabetes Mellitus Type 1, Hx Diabetes Mellitus Type 2 - IDDM Renal/ Medical History: Reports: Hx Renal Insufficiency - Stage III renal failure Malignancy Medical History: GI Medical History: Reports: Hx Hepatitis Musculoskeltal Medical History: Reports Hx Arthritis, Reports Hx Musculoskeletal Trauma Skin Medical History: Reports Hx MRSA Psychiatric Medical History: Reports: Hx Anxiety, Hx Bipolar Disorder, Hx Depression - & anxiety, Hx Post Traumatic Stress Disorder Traumatic Medical History: Reports: Hx Fractures - Knee pelvis and hand Infectious Medical History: Reports: Hx Hepatitis, Hx HIV - Patient reports no detectable viral count, Hx MRSA Past Surgical History: Reports: Hx Oral Surgery - Removal of most of teeth, Hx Orthopedic Surgery - right knee replacement, rt toe amputation; amputation 2 left toes., Other - Laser eye surgery - Immunizations Immunizations up to date: Yes Hx Diphtheria, Pertussis, Tetanus Vaccination: Yes Hx Pneumococcal Vaccination: 11/09/13 <MONICA PIERSON - Last Filed: 04/24/17 14:09> Review of Systems - Review of Systems Constitutional: No symptoms reported EENT: No symptoms reported Cardiovascular: No symptoms reported Respiratory: No symptoms reported Gastrointestinal: No symptoms reported Genitourinary: No symptoms reported Male Genitourinary: No symptoms reported Musculoskeletal: See HPI, Other - Left foot pain Skin: No symptoms reported Hematologic/Lymphatic: No symptoms reported Neurological/Psychological: No symptoms reported -: Yes All other systems reviewed and negative <MONICA PIERSON - Last Filed: 04/24/17 14:09> Physical Exam - General General appearance: Alert - HEENT Head: Normocephalic, Atraumatic Eyes: Normal Pupils: PERRL - Respiratory Respiratory status: No respiratory distress Chest status: Nontender Breath sounds: Normal Chest palpation: Normal - Cardiovascular Rhythm: Regular Heart sounds: Normal auscultation Murmur: No - Abdominal Inspection: Normal Distension: No distension Bowel sounds: Normal Tenderness: Nontender Organomegaly: No organomegaly - Back Back: Normal, Nontender - Extremities General upper extremity: Normal inspection, Nontender Foot: Other - Bunion on left foot, which is very tender, soft, and edematous. - Neurological Neuro grossly intact: Yes Cognition: Normal Orientation: AAOx4 [place] Coma Scale Eye Opening: Spontaneous [place] Coma Scale Verbal: Oriented [place] Coma Scale Motor: Obeys Commands [place] Coma Scale Total: 15 Speech: Normal - Psychological Associated symptoms: Normal affect, Normal mood - Skin Skin Temperature: Warm Skin Moisture: Dry Skin Color: Normal <MONICA PIERSON - Last Filed: 04/24/17 14:09> Course - Laboratory Result Diagrams: 04/24/17 12:55 04/24/17 12:55 <MONICA IPERSON - Last Filed: 04/24/17 14:09> - Laboratory Result Diagrams: 04/24/17 12:55 04/24/17 12:55 - Diagnostic Test Radiology reviewed: Image reviewed, Reports reviewed - Chronic changes of surgically treated osteomyelitis - Consults Dr. Martinez Time consulted: 15:40 Consulted provider: will see as inpatient Dr. Chapa Time consulted: 15:50 Consulted provider: will come to ER <DALE SIERRA - Last Filed: 04/24/17 15:58> - Vital Signs Vital signs: Temp Pulse Resp BP Pulse Ox 98.1 F 81 20 98/63 L 97 04/24/17 12:05 04/24/17 12:05 04/24/17 12:05 04/24/17 12:05 04/24/17 12:05 - Laboratory Laboratory results interpreted by me: 04/24/17 04/24/17 04/24/17 12:55 12:55 12:55 RBC 3.87 L Hgb 10.8 L Hct 34.4 L MCHC 31.4 L RDW 16.4 H Monocytes % 13.6 H ESR 51 H Sodium 130.6 L Potassium 5.9 H Chloride 96 L Carbon Dioxide 20 L BUN 29 H Creatinine 1.76 H Est GFR ( Amer) 50 L Est GFR (Non-Af Amer) 42 L Glucose 673 H* Total Protein 8.4 H Discharge <MONICA PIERSON - Last Filed: 04/24/17 14:09> - Discharge Admitting Provider: Hospitalist Unit Admitted: Telemetry <DALE SIERRA - Last Filed: 04/24/17 15:58> - Discharge Clinical Impression: Bunion bursitis, Acute hyperkalemia Hyperglycemia due to type 2 diabetes mellitus Qualifiers: Diabetes mellitus jail 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 (DALE SIERRA) Scribe Documentation - Scribe Written by Scribe:: Adolfo Alanis, 04/24/2017 1319 acting as scribe for :: Bartolome <MONICA PIERSON - Last Filed: 04/24/17 14:09>
[2017-04-24 13:30] LABS: ABSOLUTE EOSINOPHILS # (AUTO) 0.1 10^3/uL (0.0-0.6); ABSOLUTE MONOCYTES (AUTO) 0.7 10^3/uL (0.1-1.4); ABSOLUTE NEUT (AUTO) 3.2 10^3/uL (1.7-8.2); BASOPHILS % (AUTO) 0.7 % (0-2); EOSINOPHILS % (AUTO) 2.3 % (0-6); HEMATOCRIT 34.4 % (37.9-51.0); HEMOGLOBIN 10.8 g/dL (13.5-17.0); MEAN CORPUSCULAR HEMOGLOBIN 27.9 pg (27.0-33.4); MEAN CORPUSCULAR HGB CONC 31.4 g/dL (32.0-36.0); MEAN CORPUSCULAR VOLUME 89 fl (80-97); MONOCYTES % (AUTO) 13.6 % (3-13); RED BLOOD COUNT 3.87 10^6/uL (4.35-5.55); RED CELL DISTRIBUTION WIDTH 16.4 % (11.5-14.0); SEGMENTED NEUTROPHILS % (AUTO) 63.4 % (42-78)
[2017-04-24 13:46] LABS: ALANINE AMINOTRANSFERASE 21 U/L (21-72); ALBUMIN 4.3 g/dL (3.5-5.0); ALKALINE PHOSPHATASE 119 U/L (38-126); ANION GAP 15 (5-19); ASPARTATE AMINO TRANSFERASE 27 U/L (17-59); BILIRUBIN,DIRECT 0.4 mg/dL (0.0-0.4); BILIRUBIN,TOTAL 0.5 mg/dL (0.2-1.3); BLOOD UREA NITROGEN 29 mg/dL (7-20); CALCIUM 9.4 mg/dL (8.4-10.2); CARBON DIOXIDE 20 mmol/L (22-30); CHLORIDE 96 mmol/L (98-107); CREATININE RESULT 1.76 mg/dL (0.52-1.25); POTASSIUM 5.9 mmol/L (3.6-5.0); SODIUM 130.6 mmol/L (137-145); TOTAL PROTEIN 8.4 g/dL (6.3-8.2)
[2017-04-24 14:03] LABS: GLUCOSE 673 mg/dL (75-110)
[2017-04-24] MEDS ORDERED: INSULIN REG, HUMAN 100 UNIT/ML 3 ML VIAL (PYX) IV ONE (14:17)
[2017-04-24] MEDS ORDERED: SODIUM BICARBONATE 8.4% INJ 50 MEQ/50 ML DISP.SYRIN IV ONE (14:18)
--- NOTE | 2017-04-24 14:26 | RADIOLOGY REPORT (SQ) ---
EXAM DESCRIPTION: FOOT LEFT COMPLETE COMPLETED DATE/TIME: 04/24/2017 1:49 pm REASON FOR STUDY: recent amputation COMPARISON: 04/14/2017. NUMBER OF VIEWS: Three views. TECHNIQUE: AP, lateral and oblique radiographic images acquired of the left foot. LIMITATIONS: None. FINDINGS: MINERALIZATION: Normal. BONES: No acute fracture or dislocation. Stable surgical changes with amputation of the 2nd and 3rd toes. Chronic hallux valgus and bunion deformity. JOINTS: No effusions. SOFT TISSUES: Soft tissue swelling. No foreign body. OTHER: No other significant finding. IMPRESSION: STABLE CHRONIC FINDINGS AND SURGICAL CHANGES. NOTHING ACUTE. TECHNICAL DOCUMENTATION: JOB ID: [id number] [employer]- All Rights Reserved
[2017-04-24] MEDS ORDERED: TRAMADOL HCL 50 MG TABLET PO ONE (16:01)
[2017-04-24] MEDS ORDERED: IPRATROPIUM/ALBUTEROL 0.5-2.5 MG/3 ML AMPUL NEB PRN (16:37)
[2017-04-24] MEDS ORDERED: GLUCAGON,HUMAN RECOMB 1 MG INJ IM PRN (16:37)
[2017-04-24] MEDS ORDERED: DEXTROSE 50%-WATER 25 GM/50 ML DISP.SYRIN IV PRN ×2 (16:37)
[2017-04-24] MEDS ORDERED: DEXTROSE 40% GEL 15 GM TUBE PO PRN ×2 (16:37)
[2017-04-24] MEDS ORDERED: ONDANSETRON HCL INJ/PF 4 MG/2 ML SDV IV PRN (16:45)
[2017-04-24] MEDS ORDERED: ACETAMINOPHEN 325 MG TABLET PO PRN (16:45)
[2017-04-24] MEDS ORDERED: VANCOMYCIN HCL 0 MG in DEXTROSE 5%-WATER 250 ML IV NR (17:00)
[2017-04-24 17:12] LABS: PROTHROMBIN TIME 12.1 SEC (11.4-15.4)
--- NOTE | 2017-04-24 17:12 | PDOC H&P ---
History of Present Illness Admission Date/PCP: 04/24/17 16:11 Patient complains of: pain and redness left foot History of Present Illness: MILADYS LONDON III is a 46 year old male presents to the ED from the wound care clinic with progressive and worsening redness, pain and purulence to the left foot failing topical dressing changes and oral clindamycin. he reports sharp, stabbing constant pain in middle of left foot radiating up his leg with asct'd redness, swelling, foul odor and chills. he has lost toes from this foot in the past to osteomyelitis related to his DM and peripheral vascular disease. we were asked to admit for further eval and management. Past Medical History Cardiac Medical History: Reports: Coronary Artery Disease, Myocardial Infarction , Hyperlipidema, Hypertension, Peripheral Vascular Disease, Pulmonary Embolism Pulmonary Medical History: Reports: Asthma, Chronic Obstructive Pulmonary Disease (COPD), Pneumonia - 1 year ago Neurological Medical History: Reports: Seizures - 4 years ago; Depakote stopped by his physician. Endocrine Medical History: Reports: Diabetes Mellitus Type 1, Diabetes Mellitus Type 2 - IDDM Renal/ Medical History: Malignancy Medical History: GI Medical History: Reports: Hepatitis Musculoskeltal Medical History: Reports: Arthritis Psychiatric Medical History: Reports: Bipolar Disorder, Depression - & anxiety, Post Traumatic Stress Disorder Hematology: Reports: Anemia Infectious Medical History: Reports: HIV - Patient reports no detectable viral count, Methicillin-Resistant Staph Aureus Past Surgical History Past Surgical History: Reports: Orthopedic Surgery - right knee replacement, rt toe amputation; amputation 2 left toes., Other - Laser eye surgery Social History Smoking Status: Current Some Day Smoker Frequency of Alcohol Use: Heavy - 3 beers a day Hx Recreational Drug Use: Yes Drugs: Cocaine - Positive cocaine on consecutive evaluations, Marijuana Hx Prescription Drug Abuse: No - Advance Directive Resuscitation Status: Full Code Family History Family History: Reviewed & Not Pertinent, CAD, COPD, DM, Hyperlipidemia, Hypertension Parental Family History Reviewed: Yes Children Family History Reviewed: Yes Sibling(s) Family History Reviewed.: Yes Medication/Allergy Home Medications: Alprazolam [Xanax] 2 mg PO Q12 03/07/17 Amitriptyline HCl [Elavil 25 mg Tablet] 25 mg PO DAILY 03/07/17 Aripiprazole [Abilify] 20 mg PO DAILY 03/07/17 Atenolol [Tenormin 100 mg Tablet] 100 mg PO DAILY 03/07/17 Clonidine HCl [Catapres 0.1 mg Tablet] 0.1 mg PO Q12 03/07/17 Cyclobenzaprine HCl [Flexeril 10 mg Tablet] 10 mg PO TIDP PRN 03/07/17 Diclofenac Sodium [Diclofenac Sodium ER] 100 mg PO DAILY 03/07/17 Emtricitab/Rilpiviri/Tenof Ala [Odefsey Tablet] 1 tab PO DAILY 03/07/17 Fluoxetine HCl [Prozac] 40 mg PO DAILY 03/07/17 Gabapentin [Neurontin 400 mg Capsule] 400 mg PO BID 03/07/17 Hydralazine HCl [Apresoline 50 mg Tablet] 50 mg PO Q8 03/07/17 Insulin Glargine,Hum.rec.anlog [Lantus Solostar] 45 unit SQ QHS 03/07/17 Lisinopril [Prinivil 5 mg Tablet] 5 mg PO QPM 03/07/17 Oxycodone HCl/Acetaminophen [Percocet 7.5-325 mg Tablet] 1 tab PO BIDP PRN 03/07 Simvastatin [Zocor 20 mg Tablet] 20 mg PO QHS 03/07/17 Zolpidem Tartrate [Ambien] 15 mg PO HSP PRN 03/07/17 Sodium Polystyrene Sulfonate [Kayexalate 15 Gm/60 Ml Susp 60 Ml] 15 gm PO TID 30 Days 03/09/17 Oxycodone HCl/Acetaminophen [Percocet 5-325 mg Tablet] 1 - 2 tab PO ASDIR PRN # 15 tablet 04/07/17 Sulfamethoxazole/Trimethoprim [Bactrim Ds Tablet] 1 each PO BID #20 tablet 04/14 Clindamycin HCl 300 mg PO Q8H #21 capsule 04/16/17 Allergies/Adverse Reactions: Penicillins Allergy (Verified 04/24/17 12:05) rash Review of Systems All systems: reviewed and no additional remarkable complaints except as stated - all systems reviewed, see HPI, remaining systems negative Physical Exam Vital Signs: Temp Pulse Resp BP Pulse Ox 98.1 F 81 20 98/63 L 97 04/24/17 12:05 04/24/17 12:05 04/24/17 12:05 04/24/17 12:05 04/24/17 12:05 General appearance: PRESENT: disheveled, mild distress, well-developed, well- nourished Head exam: PRESENT: atraumatic, normocephalic Eye exam: PRESENT: conjunctival injection - left eye, EOMI. ABSENT: scleral icterus Mouth exam: PRESENT: moist, neck supple Teeth exam: PRESENT: poor dentation Neck exam: PRESENT: full ROM. ABSENT: JVD Respiratory exam: PRESENT: clear to auscultation vanessa. ABSENT: accessory muscle use Cardiovascular exam: PRESENT: RRR. ABSENT: systolic murmur Pulses: PRESENT: normal radial pulses. ABSENT: normal dorsalis pedis pul - greatly diminished Vascular exam: ABSENT: normal capillary refill - at the toes GI/Abdominal exam: PRESENT: normal bowel sounds, soft. ABSENT: tenderness Extremities exam: PRESENT: clubbing, pedal edema, tenderness - left foot is swollen, erythematous with streaking up the dorsal surface to the ankle, 3 discrete lesions noted with foul smelling shallow ulcers, no granulation tissue and very tender to palpation. ABSENT: calf tenderness Musculoskeletal exam: PRESENT: ambulatory, full ROM Neurological exam: PRESENT: alert, awake, oriented to person, oriented to place , oriented to time Psychiatric exam: PRESENT: appropriate affect, normal mood Skin exam: PRESENT: dry - scaling skin, warm Results Impressions: Foot X-Ray 04/24/17 12:20 IMPRESSION: STABLE CHRONIC FINDINGS AND SURGICAL CHANGES. NOTHING ACUTE. Assessment & Plan - Diagnosis (1) Osteomyelitis of left foot Qualifiers: Osteomyelitis type: subacute Qualified Code(s): M86.272 - Subacute osteomyelitis, left ankle and foot Is this a current diagnosis for this admission?: YesPlan: worse and failing outpt tx; review of old records indicate polymicrobial infection in the past, including but not limited to E Coli and MSSA, has the odor of GN rods this time. start with cefepime (has taken rocephin in past without cross reaction - PCN gives him hives) and vanc with pharm to dose for ckd3. dr alanis to consult for surgical evaluation (2) Hyperkalemia Is this a current diagnosis for this admission?: YesPlan: chronic and likley related to CKD3 compounded by his Rx regimen and poor compliance with diet; IVFs and monitor (3) Hyperglycemia due to type 2 diabetes mellitus Qualifiers: Diabetes mellitus mcfp insulin use: with mcfp use Qualified Code(s): E11.65 - Type 2 diabetes mellitus with hyperglycemia; Z79.4 - detention (current) use of insulin Is this a current diagnosis for this admission?: YesPlan: poorly controlled, last A1c = 10.7 just 2 d ago; resume home regimen and cover with SSI (4) HIV (human immunodeficiency virus infection) Is this a current diagnosis for this admission?: YesPlan: uknown status; unknown viral load and CD4 count (05/2016 = 1.7 log10 & 165 respectively); raises the risk for infection ever higher (5) Tobacco abuse Is this a current diagnosis for this admission?: YesPlan: unknown status at this time, don't think he is forthcoming with me, further raising risk for vascular disease and poor healing, poor immune function (6) Bipolar disorder Qualifiers: Active/Remission status: remission status unspecified Qualified Code (s): F31.9 - Bipolar disorder, unspecified Is this a current diagnosis for this admission?: YesPlan: stable; resume home regimen when confirmed (7) CKD (chronic kidney disease), stage III Is this a current diagnosis for this admission?: YesPlan: stable, at baseline GFR (8) PTSD (post-traumatic stress disorder) Is this a current diagnosis for this admission?: YesPlan: stable; resume home regimen once confirmed - Time Time Spent: 50 to 70 Minutes Medications reviewed and adjusted accordingly: Yes - Inpatient Certification Based on my medical assessment, after consideration of the patient's comorbidities, presenting symptoms, or acuity I expect that the services needed warrant INPATIENT care.: Yes I certify that my determination is in accordance with my understanding of Medicare's requirements for reasonable and necessary INPATIENT services [42 CFR 412.3e].: Yes Medical Necessity: Failure to Improve With Outpatient Therapy, Significant Comorbidiites Make Outpatient Treatment Too Risky, Need For IV Fluids, Need for Pain Control, Need for IV Antibiotics, Need for Surgery, Risk of Complication if Not Cared For in Hospital
[2017-04-24] MEDS ORDERED: THIAMINE HCL 100 MG TABLET PO ONE (18:00)
--- NOTE | 2017-04-24 18:28 | RADIOLOGY REPORT (SQ) ---
EXAM DESCRIPTION: CHEST SINGLE VIEW COMPLETED DATE/TIME: 04/24/2017 6:01 pm REASON FOR STUDY: central line placement- rm t-2 COMPARISON: 04/07/2017 NUMBER OF VIEWS: One view. TECHNIQUE: Single frontal radiographic view of the chest acquired. LIMITATIONS: None. FINDINGS: Central venous access catheter placed via right IJ approach. Catheter tip at inferior ri ght atrium near the IVC junction. No pneumothorax. Radiographic appearance of the chest otherwise st able. IMPRESSION: Central venous access catheter placed via right IJ approach. Catheter tip at inferior right atrium near the IVC junction. No pneumothorax. TECHNICAL DOCUMENTATION: JOB ID: [id number] [employer]- All Rights Reserved
--- NOTE | 2017-04-24 18:28 | OPERATIVE REPORT E ---
Operative Report NAME: MILADYS LONDON : 1970 AGE: 46Y DATE OF SURGERY: 04/24/2017 ROOM: 424 PREOPERATIVE DIAGNOSES: 1. DIABETIC KETOACIDOSIS. 2. CHRONIC LEFT FOOT WOUND. POSTOPERATIVE DIAGNOSES: 1. DIABETIC KETOACIDOSIS. 2. CHRONIC LEFT FOOT WOUND. OPERATION: 1. Focused ultrasound of the right neck. 2. Ultrasound-directed insertion of triple-lumen central venous access catheter. 3. Debridement of left foot surgeon. SURGEON: ANTONIO JOHNSON M.D. ANESTHESIA: Lidocaine 1%. COMPLICATIONS: None. ESTIMATED BLOOD LOSS: Scant. DRAINS: None. TISSUE REMOVED OR ALTERED: skin, left foot. SUMMARY OF PROCEDURE: After obtaining informed consent. the patient was placed in the Trendelenburg position. The right neck and chest wall were prepped and draped in a sterile fashion. Surgical plan and surgical time-out were conducted. Using ultrasound a guide, a triple-lumen central venous access catheter was slid into the right internal jugular vein without difficulty. There was excellent blood flow through all 3 lumen. The catheter was flushed with saline, secured to the skin with 2-0 silk suture. BioPatch and Op-Site dressing applied. Left foot exposed. The patient is status post amputation of toes 3 and 4. There is a small crevice of granulation tissue at the chronic wound site where the toes were amputated. There is a left fifth lateral mal perforans type ulcer as well. There was no active pus or cellulitis. Several portions of epithelium were sharply debrided with #11 blade. Granulation tissue was roughed up and wounds dressed with Xeroform and 4 by 4s. The patient tolerated the procedure well. DICTATING PHYSICIAN: ANTONIO JOHNSON M.D. [id number] PHY#: [id number] ID: [id number] JOB#: [id number] ACCT: [id number] cc:ANTONIO JOHNSON M.D. >
[2017-04-24] MEDS ORDERED: VANCOMYCIN HCL 2,000 MG in DEXTROSE 5%-WATER 500 ML IV ONE (19:00)
[2017-04-24] MEDS: CEFEPIME 1 GM/D5W RTU 1 GM/50 ML RTUPB IV SCH (19:03)
[2017-04-24] MEDS: MORPHINE SULFATE 10 MG/ML INJ IV PRN (20:43)
[2017-04-24] MEDS ORDERED: INSULIN GLARGINE,HUM.REC.ANLOG 300 UNIT/3 ML INSULN.PEN SUBCUT SCH (22:00)
[2017-04-24] MEDS: INSULIN GLARGINE,HUM.REC.ANLOG 1,000 UNIT/10 ML UNIT SUBCUT SCH (23:00)
[2017-04-24] MEDS: HEPARIN SOD (PORCINE) 5,000 UNIT/ML 1 ML SYRINGE SUBCUT SCH (23:01)
[2017-04-24] MEDS: INSULIN LISPRO 100 UNIT/ML 3 ML VIAL SUBCUT PRN (23:14)
[2017-04-24] MEDS: OXYCODONE-ACETAMINOPHEN 5-325 MG TABLET PO PRN (23:14)
[2017-04-25 00:42] LABS: ANION GAP 12 (5-19); BLOOD UREA NITROGEN 25 mg/dL (7-20); CALCIUM 9.5 mg/dL (8.4-10.2); CARBON DIOXIDE 23 mmol/L (22-30); CHLORIDE 97 mmol/L (98-107); CREATININE RESULT 1.52 mg/dL (0.52-1.25); SODIUM 131.8 mmol/L (137-145)
[2017-04-25] MEDS ORDERED: INSULIN LISPRO 100 UNIT/ML 3 ML VIAL SUBCUT ONE (00:45)
[2017-04-25 00:49] LABS: GLUCOSE 537 mg/dL (75-110); POTASSIUM 4.8 mmol/L (3.6-5.0)
[2017-04-25] MEDS: NORMAL SALINE INJ/PF 0.9% 10 ML SDV IV PRN (01:16)
[2017-04-25] MEDS: MORPHINE SULFATE 10 MG/ML INJ IV PRN ×5 (01:16→22:09)
[2017-04-25] MEDS: HEPARIN SOD (PORCINE) 5,000 UNIT/ML 1 ML SYRINGE SUBCUT SCH ×3 (05:51→22:03)
[2017-04-25] MEDS: LANSOPRAZOLE 30 MG TAB.RAP.DR PO SCH (05:51)
[2017-04-25] MEDS: CEFEPIME 1 GM/D5W RTU 1 GM/50 ML RTUPB IV SCH (05:52)
[2017-04-25 06:43] LABS: ANION GAP 10 (5-19); BLOOD UREA NITROGEN 22 mg/dL (7-20); C-REACTIVE PROTEIN 19.7 mg/L (<10.0); CALCIUM 9.6 mg/dL (8.4-10.2); CARBON DIOXIDE 28 mmol/L (22-30); CHLORIDE 101 mmol/L (98-107); CREATININE RESULT 1.38 mg/dL (0.52-1.25); GLUCOSE 214 mg/dL (75-110); POTASSIUM 4.5 mmol/L (3.6-5.0); SODIUM 138.5 mmol/L (137-145)
[2017-04-25 06:47] LABS: ABSOLUTE BASOPHILS # (AUTO) 0.1 10^3/uL (0.0-0.2); ABSOLUTE EOSINOPHILS # (AUTO) 0.2 10^3/uL (0.0-0.6); ABSOLUTE LYMPHOCYTES (AUTO) 1.3 10^3/uL (0.5-4.7); ABSOLUTE MONOCYTES (AUTO) 0.6 10^3/uL (0.1-1.4); ABSOLUTE NEUT (AUTO) 1.8 10^3/uL (1.7-8.2); BASOPHILS % (AUTO) 1.7 % (0-2); EOSINOPHILS % (AUTO) 4.2 % (0-6); HEMATOCRIT 33.2 % (37.9-51.0); HEMOGLOBIN 10.6 g/dL (13.5-17.0); HGB HCT DIFFERENCE -1.4; LYMPHOCYTES % (AUTO) 32.6 % (13-45); MEAN CORPUSCULAR HGB CONC 31.9 g/dL (32.0-36.0); MEAN CORPUSCULAR VOLUME 88 fl (80-97); MONOCYTES % (AUTO) 16.1 % (3-13); RED BLOOD COUNT 3.78 10^6/uL (4.35-5.55); RED CELL DISTRIBUTION WIDTH 15.7 % (11.5-14.0); SEGMENTED NEUTROPHILS % (AUTO) 45.4 % (42-78); WHITE BLOOD COUNT 3.9 10^3/uL (4.0-10.5)
[2017-04-25] MEDS: INSULIN LISPRO 100 UNIT/ML 3 ML VIAL SUBCUT PRN ×4 (07:54→22:03)
[2017-04-25] MEDS: OXYCODONE-ACETAMINOPHEN 5-325 MG TABLET PO PRN ×2 (08:00→16:46)
[2017-04-25] MEDS ORDERED: CYCLOBENZAPRINE HCL 10 MG TABLET PO PRN (09:13)
[2017-04-25] MEDS ORDERED: [UNRECOGNIZED DRUG - OTHER] PO SCH (10:00)
--- NOTE | 2017-04-25 10:22 | PDOC PROGRESS REPORT ---
Subjective Progress Note for:: 04/25/17 Subjective:: reason for visit: f/u osteomyelitis, cellulitis, DM hospital course: MILADYS LONDON III is a 46 year old male presents to the ED from the wound care clinic with progressive and worsening redness, pain and purulence to the left foot failing topical dressing changes and oral clindamycin. he reports sharp, stabbing constant pain in middle of left foot radiating up his leg with asct'd redness, swelling, foul odor and chills. he has lost toes from this foot in the past to osteomyelitis related to his DM and peripheral vascular disease. we were asked to admit for further eval and management. central line placed by dr loera in ED. admitted and started on empiric cefepime and vanc based on prior cultures; awaiting orthopedic evaluation. he continues to c/o pain in the foot, largely unchanged from above but managed by analgesics ordered. he denies chest pain, palpitations, NAGEL, dizziness, SOA, n/v/d. ROS: all systems reviewed, see above, remaining systems negative. Physical Exam Vital Signs: Temp Pulse Resp BP Pulse Ox 97.9 F 72 16 140/80 H 100 04/25/17 07:14 04/25/17 07:14 04/25/17 07:14 04/25/17 07:14 04/25/17 07:14 Intake & Output 04/24/17 04/25/17 04/26/17 06:59 06:59 06:59 Intake Total 480 Output Total 1075 Balance -595 Weight 60.8 kg General appearance: PRESENT: disheveled, mild distress, well-developed, well- nourished Head exam: PRESENT: atraumatic, normocephalic Eye exam: PRESENT: conjunctival injection - left eye, EOMI. ABSENT: scleral icterus Mouth exam: PRESENT: moist, neck supple Teeth exam: PRESENT: poor dentation Neck exam: PRESENT: full ROM. ABSENT: JVD Respiratory exam: PRESENT: clear to auscultation vanessa. ABSENT: accessory muscle use Cardiovascular exam: PRESENT: RRR. ABSENT: systolic murmur Pulses: PRESENT: normal radial pulses. ABSENT: normal dorsalis pedis pul - greatly diminished Vascular exam: ABSENT: normal capillary refill - at the toes GI/Abdominal exam: PRESENT: normal bowel sounds, soft. ABSENT: tenderness Extremities exam: PRESENT: clubbing, pedal edema, tenderness - left foot is swollen, erythematous with streaking up the dorsal surface to the ankle ABSENT : calf tenderness Musculoskeletal exam: PRESENT: ambulatory, full ROM Neurological exam: PRESENT: alert, awake, oriented to person, oriented to place , oriented to time Psychiatric exam: PRESENT: appropriate affect, normal mood Skin exam: PRESENT: dry - scaling skin, warm Results Laboratory Results: 04/25/17 05:45 04/25/17 05:45 04/25/17 04/25/17 04/25/17 00:18 05:45 05:45 WBC 3.9 L RBC 3.78 L Hgb 10.6 L Hct 33.2 L MCV 88 MCH 28.0 MCHC 31.9 L RDW 15.7 H Plt Count 244 Seg Neutrophils % 45.4 Lymphocytes % 32.6 Monocytes % 16.1 H Eosinophils % 4.2 Basophils % 1.7 Absolute Neutrophils 1.8 Absolute Lymphocytes 1.3 Absolute Monocytes 0.6 Absolute Eosinophils 0.2 Absolute Basophils 0.1 Sodium 131.8 L 138.5 Potassium 4.8 D 4.5 Chloride 97 L 101 Carbon Dioxide 23 28 Anion Gap 12 10 BUN 25 H 22 H Creatinine 1.52 H 1.38 H Est GFR ( Amer) > 60 > 60 Est GFR (Non-Af Amer) 49 L 55 L Glucose 537 H* 214 H Calcium 9.5 9.6 C-Reactive Protein 19.7 H Assessment & Plan - Diagnosis (1) Osteomyelitis of left foot Qualifiers: Osteomyelitis type: subacute Qualified Code(s): M86.272 - Subacute osteomyelitis, left ankle and foot Is this a current diagnosis for this admission?: YesPlan: worse and failing outpt tx; review of old records indicate polymicrobial infection in the past, including but not limited to E Coli and MSSA, has the odor of GN rods this time. start with cefepime (has taken rocephin in past without cross reaction - PCN gives him hives) and vanc with pharm to dose for ckd3. dr alanis to consult for surgical evaluation (2) Hyperkalemia Is this a current diagnosis for this admission?: YesPlan: resolved with IVFs; chronic and likley related to CKD3 compounded by his Rx regimen and poor compliance with diet; IVFs and monitor (3) Hyperglycemia due to type 2 diabetes mellitus Qualifiers: Diabetes mellitus intermediate insulin use: with terminal press operator use Qualified Code(s): E11.65 - Type 2 diabetes mellitus with hyperglycemia Is this a current diagnosis for this admission?: Yes (4) HIV (human immunodeficiency virus infection) Is this a current diagnosis for this admission?: Yes (5) Tobacco abuse Is this a current diagnosis for this admission?: Yes (6) Bipolar disorder Qualifiers: Active/Remission status: remission status unspecified Qualified Code (s): F31.9 - Bipolar disorder, unspecified Is this a current diagnosis for this admission?: Yes (7) CKD (chronic kidney disease), stage III Is this a current diagnosis for this admission?: Yes (8) PTSD (post-traumatic stress disorder) Is this a current diagnosis for this admission?: Yes - Time Time Spent with patient: 25-34 minutes Anticipated discharge: Home with Homehealth Within: within 48 hours - Plan Summary Plan Summary: with or without surgical debridement he will need PICC line and long course of IV abx, hopefully cultures will help guide our choices
[2017-04-25] MEDS: NORMAL SALINE 1000 ML 1,000 ML IV PRN (10:34)
[2017-04-25] MEDS: VANCOMYCIN HCL 750 MG in DEXTROSE 5%-WATER 250 ML IV SCH ×2 (10:35→22:12)
[2017-04-25] MEDS: AMITRIPTYLINE HCL 25 MG TABLET PO SCH (10:36)
[2017-04-25] MEDS: GABAPENTIN 400 MG CAPSULE PO SCH ×2 (10:36→18:00)
[2017-04-25] MEDS: CLONIDINE HCL 0.1 MG TABLET PO SCH ×2 (10:36→22:03)
[2017-04-25] MEDS: DOCUSATE SODIUM 100 MG CAPSULE PO SCH (10:37)
[2017-04-25] MEDS: THIAMINE HCL 100 MG TABLET PO SCH (10:37)
[2017-04-25] MEDS ORDERED: ZOLPIDEM TARTRATE 5 MG TABLET PO PRN (10:45)
[2017-04-25] MEDS: HYDRALAZINE HCL 50 MG TABLET PO SCH ×2 (13:11→22:03)
[2017-04-25] MEDS: CEFEPIME HCL 1 GM in DEXTROSE 5%-WATER 50 ML IV SCH (18:02)
[2017-04-25] MEDS: SIMVASTATIN 10 MG TABLET PO SCH (22:02)
[2017-04-25] MEDS: INSULIN GLARGINE,HUM.REC.ANLOG 1,000 UNIT/10 ML UNIT SUBCUT SCH (22:03)
[2017-04-26] MEDS: NORMAL SALINE 1000 ML 1,000 ML IV PRN ×2 (01:58→16:51)
[2017-04-26] MEDS: OXYCODONE-ACETAMINOPHEN 5-325 MG TABLET PO PRN ×2 (02:01→21:27)
[2017-04-26] MEDS: HYDRALAZINE HCL 50 MG TABLET PO SCH ×3 (05:11→21:28)
[2017-04-26] MEDS: HEPARIN SOD (PORCINE) 5,000 UNIT/ML 1 ML SYRINGE SUBCUT SCH ×3 (05:11→21:28)
[2017-04-26] MEDS: CEFEPIME HCL 1 GM in DEXTROSE 5%-WATER 50 ML IV SCH ×2 (05:11→16:46)
[2017-04-26] MEDS: LANSOPRAZOLE 30 MG TAB.RAP.DR PO SCH (05:11)
[2017-04-26] MEDS: MORPHINE SULFATE 10 MG/ML INJ IV PRN ×3 (05:28→19:38)
[2017-04-26 06:22] LABS: ABSOLUTE BASOPHILS # (AUTO) 0.1 10^3/uL (0.0-0.2); ABSOLUTE EOSINOPHILS # (AUTO) 0.2 10^3/uL (0.0-0.6); ABSOLUTE LYMPHOCYTES (AUTO) 1.5 10^3/uL (0.5-4.7); ABSOLUTE MONOCYTES (AUTO) 0.6 10^3/uL (0.1-1.4); ABSOLUTE NEUT (AUTO) 2.6 10^3/uL (1.7-8.2); BASOPHILS % (AUTO) 1.1 % (0-2); EOSINOPHILS % (AUTO) 4.5 % (0-6); HEMATOCRIT 32.6 % (37.9-51.0); HEMOGLOBIN 10.8 g/dL (13.5-17.0); HGB HCT DIFFERENCE -0.2; MEAN CORPUSCULAR HEMOGLOBIN 29.4 pg (27.0-33.4); MEAN CORPUSCULAR VOLUME 89 fl (80-97); MONOCYTES % (AUTO) 12.5 % (3-13); RED BLOOD COUNT 3.66 10^6/uL (4.35-5.55); RED CELL DISTRIBUTION WIDTH 15.5 % (11.5-14.0); SEGMENTED NEUTROPHILS % (AUTO) 51.9 % (42-78)
[2017-04-26 06:35] LABS: ANION GAP 9 (5-19); BLOOD UREA NITROGEN 23 mg/dL (7-20); CALCIUM 8.7 mg/dL (8.4-10.2); CARBON DIOXIDE 24 mmol/L (22-30); CHLORIDE 101 mmol/L (98-107); CREATININE RESULT 1.31 mg/dL (0.52-1.25); GLUCOSE 374 mg/dL (75-110); POTASSIUM 4.8 mmol/L (3.6-5.0); SODIUM 134.4 mmol/L (137-145)
[2017-04-26] MEDS: INSULIN LISPRO 100 UNIT/ML 3 ML VIAL SUBCUT PRN ×4 (08:55→21:29)
--- NOTE | 2017-04-26 11:06 | PDOC PROGRESS REPORT ---
Subjective Progress Note for:: 04/26/17 Subjective:: reason for visit: f/u osteomyelitis, cellulitis, DM hospital course: MILADYS LONDON III is a 46 year old male presents to the ED from the wound care clinic with progressive and worsening redness, pain and purulence to the left foot failing topical dressing changes and oral clindamycin. he reports sharp, stabbing constant pain in middle of left foot radiating up his leg with asct'd redness, swelling, foul odor and chills. he has lost toes from this foot in the past to osteomyelitis related to his DM and peripheral vascular disease. we were asked to admit for further eval and management. central line placed by dr loera in ED. admitted and started on empiric cefepime and vanc based on prior cultures; awaiting surgical evaluation. he continues to c/o pain in the foot, largely unchanged from above but managed by analgesics ordered. he denies chest pain, palpitations, NAGEL, dizziness, SOA, n/v/d. ROS: all systems reviewed, see above, remaining systems negative. Physical Exam Vital Signs: Temp Pulse Resp BP Pulse Ox 97.9 F 78 16 150/88 H 99 04/26/17 07:08 04/26/17 07:08 04/26/17 07:08 04/26/17 07:08 04/26/17 07:08 Intake & Output 04/25/17 04/26/17 04/27/17 06:59 06:59 06:59 Intake Total 480 3644 Output Total 1075 2350 Balance -595 1294 Weight 60.8 kg 116.7 kg General appearance: PRESENT: disheveled, mild distress, well-developed, well- nourished Head exam: PRESENT: atraumatic, normocephalic Eye exam: PRESENT: conjunctival injection - left eye, EOMI. ABSENT: scleral icterus Mouth exam: PRESENT: moist, neck supple Teeth exam: PRESENT: poor dentation Neck exam: PRESENT: full ROM. ABSENT: JVD Respiratory exam: PRESENT: clear to auscultation vanessa. ABSENT: accessory muscle use Cardiovascular exam: PRESENT: RRR. ABSENT: systolic murmur Pulses: PRESENT: normal radial pulses. ABSENT: normal dorsalis pedis pul - greatly diminished Vascular exam: ABSENT: normal capillary refill - at the toes GI/Abdominal exam: PRESENT: normal bowel sounds, soft. ABSENT: tenderness Extremities exam: PRESENT: clubbing, pedal edema, tenderness - left foot is swollen, resolution of erythema streaking up the dorsal surface to the ankle; some yellow purulent appearing fluid on the bandage that was just changed prior to my arrival ABSENT: calf tenderness Musculoskeletal exam: PRESENT: ambulatory, full ROM Neurological exam: PRESENT: alert, awake, oriented to person, oriented to place , oriented to time Psychiatric exam: PRESENT: appropriate affect, normal mood Skin exam: PRESENT: dry - scaling skin, warm Results Laboratory Results: 04/26/17 05:20 04/26/17 05:20 04/26/17 04/26/17 04/26/17 05:20 05:20 05:20 WBC 5.0 RBC 3.66 L Hgb 10.8 L Hct 32.6 L MCV 89 MCH 29.4 MCHC 33.0 RDW 15.5 H Plt Count 243 Seg Neutrophils % 51.9 Lymphocytes % 30.0 Monocytes % 12.5 Eosinophils % 4.5 Basophils % 1.1 Absolute Neutrophils 2.6 Absolute Lymphocytes 1.5 Absolute Monocytes 0.6 Absolute Eosinophils 0.2 Absolute Basophils 0.1 Sodium 134.4 L Potassium 4.8 Chloride 101 Carbon Dioxide 24 Anion Gap 9 BUN 23 H Creatinine 1.31 H Est GFR ( Amer) > 60 Est GFR (Non-Af Amer) 58 L Glucose 374 H Calcium 8.7 C-Reactive Protein 15.1 H Assessment & Plan - Diagnosis (1) Osteomyelitis of left foot Qualifiers: Osteomyelitis type: subacute Qualified Code(s): M86.272 - Subacute osteomyelitis, left ankle and foot Is this a current diagnosis for this admission?: YesPlan: minimally improved with IV abx. failed outpt tx; ck MRI to eval for osteo, trend CRP as marker for progression/resolution review of old records indicate polymicrobial infection in the past, including but not limited to E Coli and MSSA, has the odor of GN rods this time. start with cefepime (has taken rocephin in past without cross reaction - PCN gives him hives) and vanc with pharm to dose for ckd3. 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 Qualified Code(s): E11.65 - Type 2 diabetes mellitus with hyperglycemia Is this a current diagnosis for this admission?: Yes (4) HIV (human immunodeficiency virus infection) Is this a current diagnosis for this admission?: Yes (5) Tobacco abuse Is this a current diagnosis for this admission?: Yes (6) Bipolar disorder Qualifiers: Active/Remission status: remission status unspecified Qualified Code (s): F31.9 - Bipolar disorder, unspecified Is this a current diagnosis for this admission?: Yes (7) CKD (chronic kidney disease), stage III Is this a current diagnosis for this admission?: Yes (8) PTSD (post-traumatic stress disorder) Is this a current diagnosis for this admission?: Yes - Time Time Spent with patient: 25-34 minutes - Plan Summary Plan Summary: will likely jneed PICC line for ferry terminal supervisor IV abx
[2017-04-26] MEDS: GABAPENTIN 400 MG CAPSULE PO SCH ×2 (11:13→18:01)
--- NOTE | 2017-04-26 11:15 | RADIOLOGY REPORT (SQ) ---
EXAM DESCRIPTION: MRI LT LOWER EXTREMITY WITHOUT COMPLETED DATE/TIME: 04/26/2017 10:56 am REASON FOR STUDY: infection, eval for osteo left foot COMPARISON: Plain radiograph 04/24/2017 TECHNIQUE: Multiplanar imaging of the left foot to include T1-weighted, , and T2-weighted images. CONTRAST TYPE AND DOSE: None RENAL FUNCTION: Not applicable LIMITATIONS: None. FINDINGS: BONE MARROW: Signal alteration of the residual seconds and 3rd proximal phalanges in the d istal metatarsals. The shafts of the metatarsals are normal. SOFT TISSUES: Extensive soft tissue edema distal to the seconds and 3rd metatarsals. Status post par tial amputation seconds and 3rd metatarsals. OTHER: No other significant finding. IMPRESSION: Osteomyelitis of the residual proximal phalanges of the seconds and 3rd radius. Minimal marrow signal alteration of the distal seconds and 3rd metatarsals. All associated with extensive s oft tissue edema without soft tissue abscess. TECHNICAL DOCUMENTATION: JOB ID: [id number] [employer]- All Rights Reserved
[2017-04-26] MEDS: DOCUSATE SODIUM 100 MG CAPSULE PO SCH (11:20)
[2017-04-26] MEDS: CLONIDINE HCL 0.1 MG TABLET PO SCH ×2 (11:20→21:27)
[2017-04-26] MEDS: AMITRIPTYLINE HCL 25 MG TABLET PO SCH (11:21)
[2017-04-26] MEDS: ATENOLOL 50 MG TABLET PO SCH (11:21)
[2017-04-26] MEDS: FLUOXETINE HCL 20 MG CAPSULE PO SCH (11:21)
[2017-04-26] MEDS: THIAMINE HCL 100 MG TABLET PO SCH (11:21)
[2017-04-26] MEDS: ARIPIPRAZOLE 5 MG TABLET PO SCH (11:22)
[2017-04-26] MEDS: VANCOMYCIN HCL 750 MG in DEXTROSE 5%-WATER 250 ML IV SCH ×2 (11:23→22:32)
[2017-04-26] MEDS ORDERED: ALPRAZOLAM 0.5 MG TABLET PO PRN (12:47)
[2017-04-26] MEDS: NORMAL SALINE INJ/PF 0.9% 10 ML SDV IV PRN (14:29)
[2017-04-26] MEDS ORDERED: LIDOCAINE 0.5% INJ-PF (5 MG/ML) 50 ML SDV ONE (18:25)
[2017-04-26] MEDS ORDERED: LIDOCAINE 1% INJ-PF (10 MG/ML) 30 ML SDV INJ ONE (18:30)
--- NOTE | 2017-04-26 20:18 | CONSULTATION REPORT E ---
Consultation Report NAME: MILADYS LONDON : 1970 AGE: 46Y DATE: 04/26/2017 424 A TO: BUD LAZO M.D. FROM: Requesting Physician REASON FOR CONSULTATION: Patient with MRI findings of osteomyelitis of the left proximal phalanges of the second and third toes but no definite abscess noted. HISTORY OF PRESENT ILLNESS: This is a 46-year-old diabetic with problems in both feet. [facility]. He has been complaining of pains in the left foot with sharp stabbing pains in the middle of the left foot radiating to his leg. He has swelling and redness with foul odor and chills. PAST HISTORY 1. Coronary artery disease. 2. Myocardial infarction. 3. Hyperlipidemia. 4. Hypertension. 5. PVD. 6. Pulmonary embolism. REVIEW OF SYSTEMS: Pulmonary: Asthma; COPD; Pneumonia a year ago. Neurologic: Reports seizures 4 years ago with Depakote stopped by his primary physician. Endocrine: Diabetes mellitus type 1; diabetes mellitus type 2--insulin-dependent diabetes mellitus. GI: Reports history of hepatitis. Musculoskeletal: Reports arthritis. Psychiatric: Reports bipolar disorder with depression and anxiety and posttraumatic stress disorder. Hematology: Reports anemia. Infectious: Reports HIV but the patient reports no detectable viral count; MRSA. PAST SURGICAL HISTORY: Orthopedic surgery, right knee replacement; right toe amputation; amputation left toes. Laser eye surgery. SOCIAL HISTORY: Current smokes daily. Heavy use of alcohol, about 3 beers a day. History of recreational drug use with cocaine and marijuana. No history of drug abuse prescription. FAMILY HISTORY: Noncontributory. MEDICATIONS: He takes multiple medications includin. Xanax. 2. Elavil. 3. Abilify. 4. Tenormin. 5. Catapres. 6. Flexeril. 7. Diclofenac. 8. *------*. 9. Prozac 40 daily. 10. Hydralazine 50 mg q.8 h. 11. Insulin glargine 45 units subcutaneous at bedtime. 12. Lisinopril 5 mg every night. 13. Oxycodone/Percocet 7.5/325 mg p.r.n. 14. Simvastatin/Zocor. 15. Ambien. 16. Bactrim. ALLERGIES: PENICILLIN--RASH. REVIEW OF SYSTEMS: All systems reviewed and as in HPI. Other systems are negative. PHYSICAL EXAMINATION: GENERAL APPEARANCE: A well-developed, well-nourished 46-year-old male, alert and oriented, complaining of pains in left foot. VITAL SIGNS: Temperature 98.1 Fahrenheit, pulse 81, respirations 20 per minute, BP 98/63 and pulse oximetry 97 on room air. HEENT: Atraumatic, normocephalic. Conjunctival injection left eye. Mouth moist. Neck: Supple. LUNGS: Clear. ABDOMEN: Soft, nontender. VASCULAR: Capillary refill is noted to be normal for all toes. Radial pulses are normal. Absent DP or greatly diminished. EXTREMITIES: Positive tenderness along the left foot primarily along the dorsal side of the second and third proximal toes. There is a wound in the first and second toes that are relatively dry. There is also some wounds on the lateral aspect of the left foot with very shallow ulceration. No calf tenderness. MUSCULOSKELETAL: Range of motion in extremities are normal. NEUROLOGIC: The patient is alert and oriented x3. PSYCHIATRIC: Appropriate affect, normal mood. SKIN: Dry and scaling skin and warm. IMPRESSION: Osteomyelitis of the left foot. RECOMMENDATION: 1. Continue IV antibiotics. 2. May need a formal amputation of the toes such as transmetatarsal. 3. Would recommended an orthopedic consultation. 4. Meantime continue with IV antibiotics. DICTATING PHYSICIAN: BUD LAZO M.D. [id number] PHY#: [id number] ID: [id number] JOB#: [id number] ACCT: [id number] cc:BUD LAZO M.D. >
[2017-04-26] MEDS: INSULIN GLARGINE,HUM.REC.ANLOG 1,000 UNIT/10 ML UNIT SUBCUT SCH (21:28)
[2017-04-26] MEDS: SIMVASTATIN 10 MG TABLET PO SCH (21:28)
[2017-04-27] MEDS: OXYCODONE-ACETAMINOPHEN 5-325 MG TABLET PO PRN (05:43)
[2017-04-27] MEDS: HEPARIN SOD (PORCINE) 5,000 UNIT/ML 1 ML SYRINGE SUBCUT SCH ×3 (05:44→22:50)
[2017-04-27] MEDS: LANSOPRAZOLE 30 MG TAB.RAP.DR PO SCH (05:44)
[2017-04-27] MEDS: HYDRALAZINE HCL 50 MG TABLET PO SCH ×3 (05:44→22:50)
[2017-04-27] MEDS: CEFEPIME HCL 1 GM in DEXTROSE 5%-WATER 50 ML IV SCH ×2 (05:46→19:50)
[2017-04-27] MEDS: NORMAL SALINE INJ/PF 0.9% 10 ML SDV IV PRN (05:47)
[2017-04-27 06:10] LABS: ABSOLUTE BASOPHILS # (AUTO) 0.1 10^3/uL (0.0-0.2); ABSOLUTE EOSINOPHILS # (AUTO) 0.3 10^3/uL (0.0-0.6); ABSOLUTE LYMPHOCYTES (AUTO) 1.5 10^3/uL (0.5-4.7); ABSOLUTE MONOCYTES (AUTO) 0.6 10^3/uL (0.1-1.4); ABSOLUTE NEUT (AUTO) 2.2 10^3/uL (1.7-8.2); BASOPHILS % (AUTO) 1.4 % (0-2); EOSINOPHILS % (AUTO) 5.6 % (0-6); LYMPHOCYTES % (AUTO) 32.1 % (13-45); MEAN CORPUSCULAR HEMOGLOBIN 27.9 pg (27.0-33.4); MEAN CORPUSCULAR HGB CONC 32.3 g/dL (32.0-36.0); MEAN CORPUSCULAR VOLUME 87 fl (80-97); MONOCYTES % (AUTO) 12.8 % (3-13); RED BLOOD COUNT 3.57 10^6/uL (4.35-5.55); RED CELL DISTRIBUTION WIDTH 15.8 % (11.5-14.0); SEGMENTED NEUTROPHILS % (AUTO) 48.1 % (42-78); WHITE BLOOD COUNT 4.6 10^3/uL (4.0-10.5)
[2017-04-27 06:24] LABS: ANION GAP 11 (5-19); BLOOD UREA NITROGEN 21 mg/dL (7-20); C-REACTIVE PROTEIN 13.8 mg/L (<10.0); CALCIUM 8.6 mg/dL (8.4-10.2); CARBON DIOXIDE 24 mmol/L (22-30); CHLORIDE 101 mmol/L (98-107); CREATININE RESULT 1.25 mg/dL (0.52-1.25); GLUCOSE 246 mg/dL (75-110); POTASSIUM 4.5 mmol/L (3.6-5.0); SODIUM 135.9 mmol/L (137-145)
[2017-04-27] MEDS: INSULIN LISPRO 100 UNIT/ML 3 ML VIAL SUBCUT PRN ×4 (08:14→22:50)
[2017-04-27] MEDS: MORPHINE SULFATE 10 MG/ML INJ IV PRN ×3 (08:16→20:51)
[2017-04-27] MEDS ORDERED: ONDANSETRON HCL INJ/PF 4 MG/2 ML SDV IV PRN (08:31)
[2017-04-27] MEDS: GABAPENTIN 400 MG CAPSULE PO SCH ×2 (09:37→17:14)
[2017-04-27] MEDS: FLUOXETINE HCL 20 MG CAPSULE PO SCH (09:38)
[2017-04-27] MEDS: ATENOLOL 50 MG TABLET PO SCH (09:38)
[2017-04-27] MEDS: THIAMINE HCL 100 MG TABLET PO SCH (09:38)
[2017-04-27] MEDS: AMITRIPTYLINE HCL 25 MG TABLET PO SCH (09:38)
[2017-04-27] MEDS: CLONIDINE HCL 0.1 MG TABLET PO SCH ×2 (09:38→22:50)
[2017-04-27] MEDS: DOCUSATE SODIUM 100 MG CAPSULE PO SCH (09:38)
[2017-04-27] MEDS: VANCOMYCIN HCL 1,000 MG in DEXTROSE 5%-WATER 250 ML IV SCH ×2 (09:39→22:49)
[2017-04-27] MEDS: ARIPIPRAZOLE 5 MG TABLET PO SCH (09:39)
[2017-04-27] MEDS: NICOTINE 21 MG/24 HR PATCH.TD24 TD SCH (10:17)
--- NOTE | 2017-04-27 14:33 | RADIOLOGY REPORT (SQ) ---
EXAM DESCRIPTION: PICC INSERTION; FLUORO/CV PLACEMENT; U/S GUIDE FOR VASCULAR ACCESS COMPLETED DATE/TIME: 04/27/2017 2:23 pm REASON FOR STUDY: osteomyelitis; needs long course IV abx; IV ABX COMPARISON: None. FLUOROSCOPY TIME: 16 seconds. 1 images saved to PACS. TECHNIQUE: Fluoroscopic and ultrasound guided PICC placement. LIMITATIONS: None. PROCEDURE: After written consent and assessment were obtained, the patient was brought into the fluo roscopy room and place supine on the table. Ultrasound was used on the patient's left arm for PICC a ccess. The left arm was prepped and draped in a sterile fashion along with the ultrasound probe. The entry site was anesthetized with 1% lidocaine. A 21 gauge 7 cm needle was advanced through the skin a nd into the basilic vein under live ultrasound guidance. An ultrasound image was saved to PACS confi rming access site. A .018 guide wire was then inserted through the needle and into the venous system . The needle was the removed and an 11 blade scalpel was used to make a 1cm skin incision. A 5 fr pe el-away sheath was advanced over the wire and into the venous system. A measurement was then made usi ng the existing wire and live fluoroscopic guidance. The wire was then removed and the trimmed. The P ICC was advanced through the peel-away sheath and into the venous system. The peel-away sheath was re moved and the catheter was adhered to the patients arm with a stat lock. The catheter was then aspira keturah and flushed and a sterile bandage was placed over the access site. A fluoroscopic spot image was saved to PACS confirming the catheter tip within the superior vena cava. IMPRESSION: SUCCESSFUL PLACEMENT OF A 5 FR DUAL LUMEN 44 CM PICC IN THE LEFT BASILIC VEIN. COMMENT: Patient medication list reviewed: Yes- Quality ID# 130:Eligible professional attests to doc umenting in the medical record they obtained, updated, or reviewed the patient's current medications. . Quality ID 145: Final reports for procedures using fluoroscopy that document radiation exposure demetrius leyda, or exposure time and number of fluorographic images (if radiation exposure indices are not avail able) Quality ID #76: The patient was prepped and draped using maximum sterile barrier technique including cap, mask, sterile gown, sterile gloves, a large sterile sheet, hand hygiene, and 2% Chlorhexidine fo r cutaneous antisepsis. When ultrasound is used, sterile ultrasound techniques are followed requiring sterile gel and sterile probes. TECHNICAL DOCUMENTATION: JOB ID: [id number] [employer]- All Rights Reserved
--- NOTE | 2017-04-27 16:06 | PDOC PROGRESS REPORT ---
Subjective Progress Note for:: 04/27/17 Subjective:: reason for visit: f/u osteomyelitis, cellulitis, DM hospital course: MILADYS LONDON III is a 46 year old male presents to the ED from the wound care clinic with progressive and worsening redness, pain and purulence to the left foot failing topical dressing changes and oral clindamycin. he reports sharp, stabbing constant pain in middle of left foot radiating up his leg with asct'd redness, swelling, foul odor and chills. he has lost toes from this foot in the past to osteomyelitis related to his DM and peripheral vascular disease. we were asked to admit for further eval and management. Rt IJ central line placed by dr loera in ED. admitted and started on empiric cefepime and vanc based on prior cultures; awaiting surgical evaluation. MRI shows osteomyelitis. PICC line placed 04/27. he continues to c/o pain in the foot, largely unchanged from above but managed by analgesics ordered. he denies chest pain, palpitations, NAGEL, dizziness, SOA, n/v/d. ROS: all systems reviewed, see above, remaining systems negative. Physical Exam Vital Signs: Temp Pulse Resp BP Pulse Ox 97.5 F 75 18 135/94 H 100 04/27/17 11:28 04/27/17 11:28 04/27/17 11:28 04/27/17 11:28 04/27/17 11:28 Intake & Output 04/26/17 04/27/17 04/28/17 06:59 06:59 06:59 Intake Total 3644 1240 200 Output Total 2350 950 300 Balance 1294 290 -100 Weight 116.7 kg 122.7 kg General appearance: PRESENT: no distress, well-developed, well-nourished Head exam: PRESENT: atraumatic, normocephalic Eye exam: PRESENT: conjunctival injection - left eye, EOMI. ABSENT: scleral icterus Mouth exam: PRESENT: moist, neck supple Teeth exam: PRESENT: poor dentation Neck exam: PRESENT: full ROM. ABSENT: JVD Respiratory exam: PRESENT: clear to auscultation vanessa. ABSENT: accessory muscle use Cardiovascular exam: PRESENT: RRR. ABSENT: systolic murmur Pulses: PRESENT: normal radial pulses. ABSENT:dorsalis pedis pulses - greatly diminished Vascular exam: ABSENT: normal capillary refill - at the toes GI/Abdominal exam: PRESENT: normal bowel sounds, soft. ABSENT: tenderness Extremities exam: PRESENT: clubbing, pedal edema, tenderness - left foot is swollen, resolution of erythema streaking up the dorsal surface to the ankle; some yellow purulent appearing fluid on the bandage that ; no calf tenderness Musculoskeletal exam: PRESENT: ambulatory, full ROM Neurological exam: PRESENT: alert, awake, oriented to person, oriented to place , oriented to time Psychiatric exam: PRESENT: appropriate affect, normal mood Skin exam: PRESENT: dry - scaling skin, warm Results Laboratory Results: 04/27/17 05:55 04/27/17 05:55 04/27/17 04/27/17 05:55 05:55 WBC 4.6 RBC 3.57 L Hgb 10.0 L Hct 31.0 L MCV 87 MCH 27.9 MCHC 32.3 RDW 15.8 H Plt Count 208 Seg Neutrophils % 48.1 Lymphocytes % 32.1 Monocytes % 12.8 Eosinophils % 5.6 Basophils % 1.4 Absolute Neutrophils 2.2 Absolute Lymphocytes 1.5 Absolute Monocytes 0.6 Absolute Eosinophils 0.3 Absolute Basophils 0.1 Sodium 135.9 L Potassium 4.5 Chloride 101 Carbon Dioxide 24 Anion Gap 11 BUN 21 H Creatinine 1.25 Est GFR ( Amer) > 60 Est GFR (Non-Af Amer) > 60 Glucose 246 H Calcium 8.6 C-Reactive Protein 13.8 H Impressions: Lower Extremity MRI 04/26/17 00:00 IMPRESSION: Osteomyelitis of the residual proximal phalanges of the seconds and 3rd radius. Minimal marrow signal alteration of the distal seconds and 3rd metatarsals. All associated with extensive soft tissue edema without soft tissue abscess. Guidance Fluoroscopy 04/27/17 00:00 IMPRESSION: SUCCESSFUL PLACEMENT OF A 5 FR DUAL LUMEN 44 CM PICC IN THE LEFT BASILIC VEIN. Interventional Vascular Procedure 04/27/17 00:00 IMPRESSION: SUCCESSFUL PLACEMENT OF A 5 FR DUAL LUMEN 44 CM PICC IN THE LEFT BASILIC VEIN. PICC Line Insertion 04/27/17 00:00 IMPRESSION: SUCCESSFUL PLACEMENT OF A 5 FR DUAL LUMEN 44 CM PICC IN THE LEFT BASILIC VEIN. Assessment & Plan - Diagnosis (1) Osteomyelitis of left foot Qualifiers: Osteomyelitis type: subacute Qualified Code(s): M86.272 - Subacute osteomyelitis, left ankle and foot Is this a current diagnosis for this admission?: YesPlan: minimally improved with IV abx. failed outpt tx; MRI confirms osteo, trend CRP as marker for progression/resolution review of old records indicate polymicrobial infection in the past, including but not limited to E Coli and MSSA, has the odor of GN rods this time. start with cefepime (has taken rocephin in past without cross reaction - PCN gives him hives) and vanc with pharm to dose for ckd3. awaiting consult for surgical evaluation PICC line placed; narrow abx as cultures and condition allows; he has done home abx with home health in the past and willing to do so again. 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 use Qualified Code(s): E11.65 - Type 2 diabetes mellitus with hyperglycemia Is this a current diagnosis for this admission?: Yes (4) HIV (human immunodeficiency virus infection) Is this a current diagnosis for this admission?: Yes (5) Tobacco abuse Is this a current diagnosis for this admission?: Yes (6) Bipolar disorder Qualifiers: Active/Remission status: remission status unspecified Qualified Code (s): F31.9 - Bipolar disorder, unspecified Is this a current diagnosis for this admission?: Yes (7) CKD (chronic kidney disease), stage III Is this a current diagnosis for this admission?: Yes (8) PTSD (post-traumatic stress disorder) Is this a current diagnosis for this admission?: Yes - Time Time Spent with patient: 25-34 minutes
[2017-04-27] MEDS: INSULIN GLARGINE,HUM.REC.ANLOG 1,000 UNIT/10 ML UNIT SUBCUT SCH (22:50)
[2017-04-27] MEDS: SIMVASTATIN 10 MG TABLET PO SCH (22:50)
[2017-04-27] MEDS: ALPRAZOLAM 0.5 MG TABLET PO PRN (22:50)
[2017-04-28] MEDS: OXYCODONE-ACETAMINOPHEN 5-325 MG TABLET PO PRN ×3 (00:11→19:50)
[2017-04-28] MEDS: MORPHINE SULFATE 10 MG/ML INJ IV PRN ×3 (01:50→21:36)
[2017-04-28] MEDS: LANSOPRAZOLE 30 MG TAB.RAP.DR PO SCH (06:13)
[2017-04-28] MEDS: NORMAL SALINE INJ/PF 0.9% 10 ML SDV IV PRN ×3 (06:13→21:37)
[2017-04-28] MEDS: HEPARIN SOD (PORCINE) 5,000 UNIT/ML 1 ML SYRINGE SUBCUT SCH ×3 (06:13→21:36)
[2017-04-28] MEDS: HYDRALAZINE HCL 50 MG TABLET PO SCH ×3 (06:13→21:44)
[2017-04-28] MEDS: CEFEPIME HCL 1 GM in DEXTROSE 5%-WATER 50 ML IV SCH ×2 (08:43→18:02)
[2017-04-28] MEDS: INSULIN LISPRO 100 UNIT/ML 3 ML VIAL SUBCUT PRN ×4 (08:51→21:35)
[2017-04-28] MEDS: ARIPIPRAZOLE 5 MG TABLET PO SCH (11:14)
[2017-04-28] MEDS: FLUOXETINE HCL 20 MG CAPSULE PO SCH (11:14)
[2017-04-28] MEDS: GABAPENTIN 400 MG CAPSULE PO SCH ×2 (11:15→18:01)
[2017-04-28] MEDS: DOCUSATE SODIUM 100 MG CAPSULE PO SCH (11:15)
[2017-04-28] MEDS: AMITRIPTYLINE HCL 25 MG TABLET PO SCH (11:16)
[2017-04-28] MEDS: THIAMINE HCL 100 MG TABLET PO SCH (11:16)
[2017-04-28] MEDS: ATENOLOL 50 MG TABLET PO SCH (11:16)
[2017-04-28] MEDS: CLONIDINE HCL 0.1 MG TABLET PO SCH ×2 (11:17→21:36)
[2017-04-28] MEDS: NICOTINE 21 MG/24 HR PATCH.TD24 TD SCH (11:17)
[2017-04-28] MEDS: VANCOMYCIN HCL 1,000 MG in DEXTROSE 5%-WATER 250 ML IV SCH ×2 (11:19→21:36)
[2017-04-28] MEDS: ALPRAZOLAM 0.5 MG TABLET PO PRN (11:20)
[2017-04-28] MEDS ORDERED: DEXTROSE 40% GEL 15 GM TUBE PO PRN ×2 (16:29)
[2017-04-28] MEDS ORDERED: DEXTROSE 50%-WATER 25 GM/50 ML DISP.SYRIN IV PRN ×2 (16:29)
[2017-04-28] MEDS ORDERED: GLUCAGON,HUMAN RECOMB 1 MG INJ IM PRN (16:29)
--- NOTE | 2017-04-28 16:39 | PDOC PROGRESS REPORT ---
Subjective Progress Note for:: 04/28/17 Subjective:: The patient is a 46-year-old -[place] gentleman who presented to the emergency room from the wound care clinic with worsening left foot pain. He had had increasing redness, pain and purulent drainage. He has lost several toes from the splint in the past due to osteomyelitis related to his underlying diabetes mellitus and peripheral vascular disease. He was admitted to the hospital. Dr. Fry debrided the wound. He was found to have evidence of underlying osteomyelitis and is currently on broad-spectrum IV antibiotics. Overall when I saw the patient today he states that he is feeling little better. He is still having quite a bit of pain in his foot at this point. He denies fever chills. No chest pain, shortness of breath or heart palpitations. No nausea vomiting or diarrhea. No dysuria, frequency or hematuria. Physical Exam Vital Signs: Temp Pulse Resp BP Pulse Ox 97.3 F 71 16 135/88 H 96 04/28/17 07:32 04/28/17 07:32 04/28/17 07:32 04/28/17 07:32 04/28/17 07:32 Intake & Output 04/27/17 04/28/17 04/29/17 06:59 06:59 06:59 Intake Total 1240 2720 Output Total 950 300 Balance 290 2420 Weight 122.7 kg 120.7 kg General appearance: PRESENT: no acute distress, obese Head exam: PRESENT: atraumatic, normocephalic Mouth exam: PRESENT: moist Respiratory exam: PRESENT: clear to auscultation vanessa. ABSENT: rales, rhonchi, wheezes Cardiovascular exam: PRESENT: RRR, +S1, +S2 GI/Abdominal exam: PRESENT: normal bowel sounds, soft. ABSENT: tenderness Extremities exam: PRESENT: other - The patient had a bandage in place to the left foot that was not removed this at the time of this dictation.. ABSENT: clubbing, pedal edema Neurological exam: PRESENT: alert, awake, oriented to person, oriented to place , oriented to time, oriented to situation Psychiatric exam: PRESENT: appropriate affect Skin exam: PRESENT: dry, warm Results Laboratory Results: 04/27/17 05:55 04/27/17 05:55 04/28/17 05:30 C-Reactive Protein 16.5 H Impressions: Chest X-Ray 04/24/17 00:00 IMPRESSION: Central venous access catheter placed via right IJ approach. Catheter tip at inferior right atrium near the IVC junction. No pneumothorax. Foot X-Ray 04/24/17 12:20 IMPRESSION: STABLE CHRONIC FINDINGS AND SURGICAL CHANGES. NOTHING ACUTE. Lower Extremity MRI 04/26/17 00:00 IMPRESSION: Osteomyelitis of the residual proximal phalanges of the seconds and 3rd radius. Minimal marrow signal alteration of the distal seconds and 3rd metatarsals. All associated with extensive soft tissue edema without soft tissue abscess. Guidance Fluoroscopy 04/27/17 00:00 IMPRESSION: SUCCESSFUL PLACEMENT OF A 5 FR DUAL LUMEN 44 CM PICC IN THE LEFT BASILIC VEIN. Interventional Vascular Procedure 04/27/17 00:00 IMPRESSION: SUCCESSFUL PLACEMENT OF A 5 FR DUAL LUMEN 44 CM PICC IN THE LEFT BASILIC VEIN. PICC Line Insertion 04/27/17 00:00 IMPRESSION: SUCCESSFUL PLACEMENT OF A 5 FR DUAL LUMEN 44 CM PICC IN THE LEFT BASILIC VEIN. Assessment & Plan - Diagnosis (1) Osteomyelitis of left foot Qualifiers: Osteomyelitis type: subacute Qualified Code(s): M86.272 - Subacute osteomyelitis, left ankle and foot Is this a current diagnosis for this admission?: YesPlan: For now the patient will continue broad-spectrum IV antibiotics. This is day # 5 out of 42 days of treatment. He has had a PICC line in place and if he opts for no amputations he will need 6 weeks of IV antibiotics. He is still having quite a bit of pain in his foot. (2) Cellulitis of right lower extremity Plan: Plan as above. This is due to his underlying diabetic foot ulcer and osteomyelitis. (3) Diabetic infection of left foot Plan: He is on broad-spectrum IV antibiotics to cover MRSA as well as Pseudomonas. At this point there are no cultures to drive therapy. He will likely need his antibiotic therapy narrowed if possible prior to discharge. He will require 6 weeks of IV antibiotics. (4) HIV (human immunodeficiency virus infection) Is this a current diagnosis for this admission?: YesPlan: His antiretrovirals have been ordered. I am not sure whether he is actually getting these. I will ask nursing staff to relabel his home medications if he can have someone bring them from home. 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 For now will continue his current dose of Lantus. I am adding Humalog 10 units 3 times daily before meals and he will continue sliding-scale insulin. We will make further adjustments tomorrow. (6) Peripheral vascular disease Plan: He is being followed by orthopedic surgery. I will try to get into his old records this afternoon and see whether he has had any sort of arterial studies done recently. (7) Tobacco abuse Is this a current diagnosis for this admission?: YesPlan: Certainly would be in his best interest to quit smoking (8) Bipolar disorder Qualifiers: Active/Remission status: remission status unspecified Qualified Code (s): F31.9 - Bipolar disorder, unspecified Is this a current diagnosis for this admission?: YesPlan: Appears to be stable. Continue home regimen (9) CKD (chronic kidney disease), stage III Is this a current diagnosis for this admission?: Yes (10) Acute renal failure Qualifiers: Acute renal failure type: unspecified Qualified Code(s): N17.9 - Acute kidney failure, unspecified Plan: His creatinine is improving with treatment. - Time Time Spent with patient: 25-34 minutes
[2017-04-28] MEDS: INSULIN GLARGINE,HUM.REC.ANLOG 1,000 UNIT/10 ML UNIT SUBCUT SCH (21:35)
[2017-04-28] MEDS: SIMVASTATIN 10 MG TABLET PO SCH (21:37)
[2017-04-29] MEDS: OXYCODONE-ACETAMINOPHEN 5-325 MG TABLET PO PRN ×2 (02:33→22:14)
[2017-04-29] MEDS: ALPRAZOLAM 0.5 MG TABLET PO PRN ×2 (02:33→22:12)
[2017-04-29] MEDS: MORPHINE SULFATE 10 MG/ML INJ IV PRN ×3 (05:30→18:39)
[2017-04-29] MEDS: LANSOPRAZOLE 30 MG TAB.RAP.DR PO SCH (05:31)
[2017-04-29] MEDS: HYDRALAZINE HCL 50 MG TABLET PO SCH ×3 (05:31→22:09)
[2017-04-29] MEDS: NORMAL SALINE INJ/PF 0.9% 10 ML SDV IV PRN ×2 (05:31→22:14)
[2017-04-29] MEDS: HEPARIN SOD (PORCINE) 5,000 UNIT/ML 1 ML SYRINGE SUBCUT SCH ×3 (05:31→22:12)
[2017-04-29] MEDS: CEFEPIME HCL 1 GM in DEXTROSE 5%-WATER 50 ML IV SCH ×2 (05:31→18:35)
[2017-04-29] MEDS ORDERED: INSULIN LISPRO 100 UNIT/ML 3 ML VIAL SUBCUT SCH (08:00)
[2017-04-29] MEDS ORDERED: INSULIN LISPRO 100 UNIT/ML 3 ML VIAL SUBCUT ONE (09:30)
[2017-04-29] MEDS: ARIPIPRAZOLE 5 MG TABLET PO SCH (09:41)
[2017-04-29] MEDS: NICOTINE 21 MG/24 HR PATCH.TD24 TD SCH (09:41)
[2017-04-29] MEDS: FLUOXETINE HCL 20 MG CAPSULE PO SCH (09:41)
[2017-04-29] MEDS: THIAMINE HCL 100 MG TABLET PO SCH (09:41)
[2017-04-29] MEDS: GABAPENTIN 400 MG CAPSULE PO SCH ×2 (09:41→18:35)
[2017-04-29] MEDS: DOCUSATE SODIUM 100 MG CAPSULE PO SCH (09:41)
[2017-04-29] MEDS: AMITRIPTYLINE HCL 25 MG TABLET PO SCH (09:42)
[2017-04-29] MEDS: CLONIDINE HCL 0.1 MG TABLET PO SCH ×2 (09:42→22:12)
[2017-04-29] MEDS: ATENOLOL 50 MG TABLET PO SCH (09:42)
[2017-04-29 10:46] LABS: CREATININE RESULT 1.24 mg/dL (0.52-1.25)
[2017-04-29] MEDS: VANCOMYCIN HCL 1,000 MG in DEXTROSE 5%-WATER 250 ML IV SCH ×2 (11:55→22:15)
[2017-04-29] MEDS: INSULIN LISPRO 100 UNIT/ML 3 ML VIAL SUBCUT SCH ×2 (12:07→18:35)
--- NOTE | 2017-04-29 13:07 | XCELERA REPORT ---
[address] [address] Lower Extremity Arterial Evaluation Name: MILADYS LONDON III Age: 46 yrs Gender: Male : 1970 Patient Status: Inpatient Patient Location: [id number] Study Date: 04/29/2017 10:29 AM Procedure: A color flow and duplex scan of the lower extremity arteries was performed bilaterally with velocity and waveform anaylsis. Ankle brachial indicies performed. Reason For Study: osteo LLE, evaluate blood flow Ordering Physician: ANIA ZAVALA Performed By: Tiff Jacobsen Measurements and Calculations Right Left RELIEF PHARMACIST PSV 108.7 87.4 cm/sec Prox PFA PSV -46.8 -68.4 cm/sec Prox SFA PSV -74.2 84.5 cm/sec Mid SFA PSV -89.9 -146.7 cm/sec Dist SFA PSV -85.6 -58.5 cm/sec Prox Pop A PSV 63.7 72.7 cm/sec Dist ZION PSV 34.8 78.2 cm/sec Dist PIVOT END POLISHER PSV 39.7 37.7 cm/sec Serafin Pedis PSV 52.2 116.3 cm/sec Right Side Arterial Evaluation Normal velocity and triphasic waveforms noted from the Common Femoral artery to the Popliteal. Biphasic with well preserved waveforms to the infrageniculate vessels. 0-19% stenosis at infrageniculate level. Ankle Brachial index was not obtainable due to dressings in place. Left Side Arterial Evaluation Normal velocity and triphasic waveforms noted from the Common Femoral artery to the infrageniculate level, Biphasic in the Dorsalis Pedis.. 0-19% stenosis at the Dorsalis artery. Ankle Brachial index was not obtainable due to dressings in place. Interpretation Summary Mild hemodynamically significant lesions in the bilateral lower extremities, on duplex imaging, at rest. : ANIA ZAVALA > Delano Wray
--- NOTE | 2017-04-29 15:02 | PDOC PROGRESS REPORT ---
Subjective Progress Note for:: 04/29/17 Subjective:: The patient is resting in his bed. He states he continues to have pain in his foot at the site of his surgical debridement. He had arterial Dopplers performed this morning which revealed mild hemodynamically significant stenosis per the report dictated by Dr. Wray. Overall he is feeling little better. He denies fever chills. He has had no chest pain, shortness of breath or heart palpitations. No nausea vomiting or diarrhea. No urinary complaints. Just continued pain in his left foot. Physical Exam Vital Signs: Temp Pulse Resp BP Pulse Ox 98.3 F 79 20 138/88 H 100 04/29/17 12:00 04/29/17 12:00 04/29/17 12:00 04/29/17 12:00 04/29/17 12:00 Intake & Output 04/28/17 04/29/17 04/30/17 06:59 06:59 06:59 Intake Total 2720 4047 360 Output Total 300 Balance 2420 4047 360 Weight 120.7 kg 120.7 kg General appearance: PRESENT: no acute distress Head exam: PRESENT: atraumatic, normocephalic Mouth exam: PRESENT: moist, neck supple Respiratory exam: PRESENT: clear to auscultation vanessa. ABSENT: accessory muscle use, rales, rhonchi, wheezes Cardiovascular exam: PRESENT: RRR, +S1, +S2. ABSENT: diastolic murmur, gallop, rubs, systolic murmur GI/Abdominal exam: PRESENT: normal bowel sounds, soft. ABSENT: tenderness Extremities exam: PRESENT: other - He has a dressing in place to the left foot. He has venous changes stasis bilaterally. No edema Skin exam: PRESENT: dry, warm Results Laboratory Results: 04/27/17 05:55 04/29/17 09:42 04/29/17 09:42 Creatinine 1.24 Est GFR ( Amer) > 60 Est GFR (Non-Af Amer) > 60 Impressions: Chest X-Ray 04/24/17 00:00 IMPRESSION: Central venous access catheter placed via right IJ approach. Catheter tip at inferior right atrium near the IVC junction. No pneumothorax. Foot X-Ray 04/24/17 12:20 IMPRESSION: STABLE CHRONIC FINDINGS AND SURGICAL CHANGES. NOTHING ACUTE. Lower Extremity MRI 04/26/17 00:00 IMPRESSION: Osteomyelitis of the residual proximal phalanges of the seconds and 3rd radius. Minimal marrow signal alteration of the distal seconds and 3rd metatarsals. All associated with extensive soft tissue edema without soft tissue abscess. Guidance Fluoroscopy 04/27/17 00:00 IMPRESSION: SUCCESSFUL PLACEMENT OF A 5 FR DUAL LUMEN 44 CM PICC IN THE LEFT BASILIC VEIN. Interventional Vascular Procedure 04/27/17 00:00 IMPRESSION: SUCCESSFUL PLACEMENT OF A 5 FR DUAL LUMEN 44 CM PICC IN THE LEFT BASILIC VEIN. PICC Line Insertion 04/27/17 00:00 IMPRESSION: SUCCESSFUL PLACEMENT OF A 5 FR DUAL LUMEN 44 CM PICC IN THE LEFT BASILIC VEIN. Assessment & Plan - Diagnosis (1) Osteomyelitis of left foot Qualifiers: Osteomyelitis type: subacute Qualified Code(s): M86.272 - Subacute osteomyelitis, left ankle and foot Is this a current diagnosis for this admission?: YesPlan: For now the patient will continue broad-spectrum IV antibiotics with vancomycin and cefepime.This is day #6 out of 42 days of treatment. He has had a PICC line in place and if he opts for no amputations he will need 6 weeks of IV antibiotics. He is still having quite a bit of pain in his foot. (2) Cellulitis of right lower extremity Plan: Plan as above. This is due to his underlying diabetic foot ulcer and osteomyelitis. (3) Diabetic infection of left foot Plan: He is on broad-spectrum IV antibiotics to cover MRSA as well as Pseudomonas. At this point there are no cultures to drive therapy. He will likely need his antibiotic therapy narrowed if possible prior to discharge. He will require 6 weeks of IV antibiotics. (4) HIV (human immunodeficiency virus infection) Is this a current diagnosis for this admission?: YesPlan: His antiretrovirals have been ordered. I am not sure whether he is actually getting these. Hopefully he can get back on these as soon as possible. Yesterday I did ask nursing staff to get his home medications relabeled for use here in the hospital. It is on his morbid he has not yet received any. 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 For now will continue his current dose of Lantus. I am increasing Humalog 15 units 3 times daily before meals and he will continue sliding-scale insulin. We will make further adjustments tomorrow. (6) Peripheral vascular disease Plan: He is being followed by orthopedic surgery. he had arterial Dopplers performed this afternoon which revealed mild ischemia. Overall I do not believe any intervention is necessary. (7) Tobacco abuse Is this a current diagnosis for this admission?: YesPlan: Certainly would be in his best interest to quit smoking (8) Bipolar disorder Qualifiers: Active/Remission status: remission status unspecified Qualified Code (s): F31.9 - Bipolar disorder, unspecified Is this a current diagnosis for this admission?: YesPlan: Appears to be stable. Continue home regimen. He does have a history of polysubstance abuse in the past. I am not going to escalate his narcotics at this point. (9) CKD (chronic kidney disease), stage III Is this a current diagnosis for this admission?: YesPlan: Stable. I believe his creatinine is getting back to his baseline. (10) Acute renal failure Qualifiers: Acute renal failure type: unspecified Qualified Code(s): N17.9 - Acute kidney failure, unspecified Plan: His creatinine is improving with treatment. This was likely due to his underlying infection. - Time Time Spent with patient: 25-34 minutes Disposition: Inpatient hospitalization remains necessary. Patient is going to require long- term IV antibiotics. He may benefit from subacute rehabilitation. Timing of disposition will be determined by his clinical course.
[2017-04-29 16:02] LABS: HEMATOCRIT 33.1 % (37.9-51.0); HEMOGLOBIN 10.5 g/dL (13.5-17.0); HGB HCT DIFFERENCE -1.6; MEAN CORPUSCULAR HEMOGLOBIN 28.1 pg (27.0-33.4); MEAN CORPUSCULAR HGB CONC 31.8 g/dL (32.0-36.0); MEAN CORPUSCULAR VOLUME 88 fl (80-97); RED BLOOD COUNT 3.75 10^6/uL (4.35-5.55); RED CELL DISTRIBUTION WIDTH 16.2 % (11.5-14.0); WHITE BLOOD COUNT 5.3 10^3/uL (4.0-10.5)
[2017-04-29] MEDS: SIMVASTATIN 10 MG TABLET PO SCH (22:12)
[2017-04-29] MEDS: INSULIN GLARGINE,HUM.REC.ANLOG 1,000 UNIT/10 ML UNIT SUBCUT SCH (22:13)
[2017-04-29] MEDS: INSULIN LISPRO 100 UNIT/ML 3 ML VIAL SUBCUT PRN (22:13)
[2017-04-30] MEDS: MORPHINE SULFATE 10 MG/ML INJ IV PRN ×3 (03:11→21:54)
[2017-04-30] MEDS: LANSOPRAZOLE 30 MG TAB.RAP.DR PO SCH (05:36)
[2017-04-30] MEDS: HEPARIN SOD (PORCINE) 5,000 UNIT/ML 1 ML SYRINGE SUBCUT SCH ×3 (05:36→21:52)
[2017-04-30] MEDS: CEFEPIME HCL 1 GM in DEXTROSE 5%-WATER 50 ML IV SCH (05:36)
[2017-04-30] MEDS: NORMAL SALINE INJ/PF 0.9% 10 ML SDV IV PRN ×2 (05:36→15:16)
[2017-04-30] MEDS: HYDRALAZINE HCL 50 MG TABLET PO SCH ×3 (05:36→21:56)
[2017-04-30 06:34] LABS: ANION GAP 11 (5-19); BLOOD UREA NITROGEN 20 mg/dL (7-20); CALCIUM 8.3 mg/dL (8.4-10.2); CARBON DIOXIDE 23 mmol/L (22-30); CHLORIDE 104 mmol/L (98-107); CREATININE RESULT 1.19 mg/dL (0.52-1.25); GLUCOSE 347 mg/dL (75-110); MAGNESIUM 1.7 mg/dL (1.6-2.3); POTASSIUM 4.8 mmol/L (3.6-5.0); SODIUM 137.6 mmol/L (137-145)
[2017-04-30] MEDS: OXYCODONE-ACETAMINOPHEN 5-325 MG TABLET PO PRN (07:00)
[2017-04-30] MEDS: INSULIN LISPRO 100 UNIT/ML 3 ML VIAL SUBCUT PRN ×3 (10:13→21:52)
[2017-04-30] MEDS: INSULIN LISPRO 100 UNIT/ML 3 ML VIAL SUBCUT SCH ×3 (10:13→17:26)
[2017-04-30] MEDS: ARIPIPRAZOLE 5 MG TABLET PO SCH (10:14)
[2017-04-30] MEDS: AMITRIPTYLINE HCL 25 MG TABLET PO SCH (10:14)
[2017-04-30] MEDS: GABAPENTIN 400 MG CAPSULE PO SCH ×2 (10:14→17:26)
[2017-04-30] MEDS: CLONIDINE HCL 0.1 MG TABLET PO SCH ×2 (10:14→21:56)
[2017-04-30] MEDS: ATENOLOL 50 MG TABLET PO SCH (10:14)
[2017-04-30] MEDS: FLUOXETINE HCL 20 MG CAPSULE PO SCH (10:15)
[2017-04-30] MEDS: THIAMINE HCL 100 MG TABLET PO SCH (10:15)
[2017-04-30] MEDS: NICOTINE 21 MG/24 HR PATCH.TD24 TD SCH (10:15)
[2017-04-30] MEDS: DOCUSATE SODIUM 100 MG CAPSULE PO SCH (10:21)
[2017-04-30] MEDS ORDERED: LEVOFLOXACIN 750 MG/D5W RTU 750 MG/150 ML RTUPB IV ONE (11:00)
--- NOTE | 2017-04-30 11:08 | PDOC PROGRESS REPORT ---
Subjective Progress Note for:: 04/30/17 Subjective:: The patient is resting comfortably in his bed today. He has had no overnight events. He continues to have pain in his foot but otherwise states he is feeling better. He denies fever chills. He has had no chest pain, shortness of breath or heart palpitations. No nausea, vomiting or diarrhea. No dysuria, frequency or hematuria. Physical Exam Vital Signs: Temp Pulse Resp BP Pulse Ox 98.4 F 83 16 155/96 H 100 04/30/17 08:00 04/30/17 08:00 04/30/17 08:00 04/30/17 08:00 04/30/17 08:00 Intake & Output 04/29/17 04/30/17 05/01/17 06:59 06:59 06:59 Intake Total 4047 3190 Balance 4047 3190 Weight 120.7 kg 120.7 kg 120.7 kg General appearance: PRESENT: no acute distress, disheveled, well-developed, well -nourished Head exam: PRESENT: atraumatic, normocephalic Respiratory exam: PRESENT: clear to auscultation vanessa. ABSENT: rales, rhonchi, wheezes Cardiovascular exam: PRESENT: RRR. ABSENT: diastolic murmur, rubs, systolic murmur GI/Abdominal exam: PRESENT: normal bowel sounds, soft. ABSENT: distended, guarding, mass, organolmegaly, rebound, tenderness Extremities exam: ABSENT: calf tenderness, clubbing, pedal edema Neurological exam: PRESENT: alert, awake, oriented to person, oriented to place , oriented to time, oriented to situation, CN II-XII grossly intact. ABSENT: motor sensory deficit Psychiatric exam: PRESENT: flat affect Skin exam: PRESENT: dry, warm, other - He has a bandage in place to his left lower extremity that was not removed. He has venous stasis changes bilaterally in his lower extremities.. ABSENT: cyanosis, rash Results Laboratory Results: 04/29/17 12:00 04/30/17 06:05 04/29/17 04/29/17 04/30/17 09:42 12:00 06:05 WBC 5.3 RBC 3.75 L Hgb 10.5 L Hct 33.1 L MCV 88 MCH 28.1 MCHC 31.8 L RDW 16.2 H Plt Count 207 Sodium 137.6 Potassium 4.8 Chloride 104 Carbon Dioxide 23 Anion Gap 11 BUN 20 Creatinine 1.24 1.19 Est GFR ( Amer) > 60 > 60 Est GFR (Non-Af Amer) > 60 > 60 Glucose 347 H Calcium 8.3 L Magnesium 1.7 Impressions: Chest X-Ray 04/24/17 00:00 IMPRESSION: Central venous access catheter placed via right IJ approach. Catheter tip at inferior right atrium near the IVC junction. No pneumothorax. Foot X-Ray 04/24/17 12:20 IMPRESSION: STABLE CHRONIC FINDINGS AND SURGICAL CHANGES. NOTHING ACUTE. Lower Extremity MRI 04/26/17 00:00 IMPRESSION: Osteomyelitis of the residual proximal phalanges of the seconds and 3rd radius. Minimal marrow signal alteration of the distal seconds and 3rd metatarsals. All associated with extensive soft tissue edema without soft tissue abscess. Guidance Fluoroscopy 04/27/17 00:00 IMPRESSION: SUCCESSFUL PLACEMENT OF A 5 FR DUAL LUMEN 44 CM PICC IN THE LEFT BASILIC VEIN. Interventional Vascular Procedure 04/27/17 00:00 IMPRESSION: SUCCESSFUL PLACEMENT OF A 5 FR DUAL LUMEN 44 CM PICC IN THE LEFT BASILIC VEIN. PICC Line Insertion 04/27/17 00:00 IMPRESSION: SUCCESSFUL PLACEMENT OF A 5 FR DUAL LUMEN 44 CM PICC IN THE LEFT BASILIC VEIN. Assessment & Plan - Diagnosis (1) Osteomyelitis of left foot Qualifiers: Osteomyelitis type: subacute Qualified Code(s): M86.272 - Subacute osteomyelitis, left ankle and foot Is this a current diagnosis for this admission?: YesPlan: I am going to change his antibiotic therapy to daptomycin as this is a once daily medication. We will put him on p.o. Levaquin to cover Pseudomonas. Unfortunately it does not appear that we have any cultures from his debridement. He is going to need 6 weeks of IV antibiotics. This is day #7 out of 42 days of appropriate antibiotic treatment. (2) Cellulitis of right lower extremity Plan: Plan as above. This is due to his underlying diabetic foot ulcer and osteomyelitis. (3) Diabetic infection of left foot Plan: He is on broad-spectrum IV antibiotics to cover MRSA as well as Pseudomonas. At this point there are no cultures to drive therapy. His IV antibiotics have been changed to daptomycin and Levaquin. (4) HIV (human immunodeficiency virus infection) Is this a current diagnosis for this admission?: YesPlan: His antiretrovirals have been ordered. I am not sure whether he is actually getting these. Hopefully he can get back on these as soon as possible. I will follow up with the nursing staff. It was my understanding he was bringing his home medication from home and it would be reliable. 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 I am going to increase his NovoLog to 20 units 3 times daily before meals and we will continue sliding- scale coverage. His blood sugars are still markedly uncontrolled. (6) Peripheral vascular disease Plan: He has been seen by orthopedic surgery. He had arterial Dopplers performed this afternoon which revealed mild ischemia. Overall I do not believe any intervention is necessary. (7) Tobacco abuse Is this a current diagnosis for this admission?: YesPlan: Certainly would be in his best interest to quit smoking. He has a nicotine patch in place. (8) Bipolar disorder Qualifiers: Active/Remission status: remission status unspecified Qualified Code (s): F31.9 - Bipolar disorder, unspecified Is this a current diagnosis for this admission?: YesPlan: Appears to be stable. Continue home regimen. He does have a history of polysubstance abuse in the past. I am not going to escalate his narcotics at this point. (9) CKD (chronic kidney disease), stage III Is this a current diagnosis for this admission?: YesPlan: Stable. I believe his creatinine is getting back to his baseline. (10) Acute renal failure Qualifiers: Acute renal failure type: unspecified Qualified Code(s): N17.9 - Acute kidney failure, unspecified Plan: His creatinine is improving with treatment. This was likely due to his underlying infection. (11) Nightmares Plan: He reports a history of PTSD. - Time Disposition: marked explaining theyday yesterday and I come over here inpatient hospitalization remains necessary. Patient needs long-term IV antibiotics and the discharge planners have been consulted. Hopefully this can be set up at home. If not he may need to go to a skilled facility for subacute rehabilitation while he receives his therapy.
[2017-04-30] MEDS: NORMAL SALINE IV SCH (12:00)
[2017-04-30] MEDS: DAPTOMYCIN IV SCH (12:00)
[2017-04-30] MEDS: NORMAL SALINE 1000 ML 1,000 ML IV PRN (15:17)
[2017-04-30] MEDS: INSULIN GLARGINE,HUM.REC.ANLOG 1,000 UNIT/10 ML UNIT SUBCUT SCH (21:52)
[2017-04-30] MEDS: SIMVASTATIN 10 MG TABLET PO SCH (21:56)
[2017-04-30] MEDS: TRAZODONE HCL 50 MG TABLET PO SCH (21:57)
[2017-04-30] MEDS: ALPRAZOLAM 0.5 MG TABLET PO PRN (22:36)
[2017-05-01] MEDS: HEPARIN SOD (PORCINE) 5,000 UNIT/ML 1 ML SYRINGE SUBCUT SCH ×3 (05:50→22:31)
[2017-05-01] MEDS: MORPHINE SULFATE 10 MG/ML INJ IV PRN ×3 (05:50→19:39)
[2017-05-01] MEDS: LANSOPRAZOLE 30 MG TAB.RAP.DR PO SCH (05:51)
[2017-05-01] MEDS: HYDRALAZINE HCL 50 MG TABLET PO SCH ×3 (05:51→22:33)
[2017-05-01] MEDS: INSULIN LISPRO 100 UNIT/ML 3 ML VIAL SUBCUT SCH ×3 (08:36→17:12)
[2017-05-01] MEDS: OXYCODONE-ACETAMINOPHEN 5-325 MG TABLET PO PRN (08:42)
[2017-05-01] MEDS: DOCUSATE SODIUM 100 MG CAPSULE PO SCH (09:08)
[2017-05-01] MEDS: ARIPIPRAZOLE 5 MG TABLET PO SCH (09:08)
[2017-05-01] MEDS: CLONIDINE HCL 0.1 MG TABLET PO SCH ×2 (09:08→22:33)
[2017-05-01] MEDS: NICOTINE 21 MG/24 HR PATCH.TD24 TD SCH (09:08)
[2017-05-01] MEDS: ATENOLOL 50 MG TABLET PO SCH (09:08)
[2017-05-01] MEDS: THIAMINE HCL 100 MG TABLET PO SCH (09:09)
[2017-05-01] MEDS: FLUOXETINE HCL 20 MG CAPSULE PO SCH (09:09)
[2017-05-01] MEDS: LEVOFLOXACIN 750 MG TABLET PO SCH (09:09)
[2017-05-01] MEDS: GABAPENTIN 400 MG CAPSULE PO SCH ×2 (09:09→17:13)
[2017-05-01] MEDS: ALPRAZOLAM 0.5 MG TABLET PO PRN (12:29)
[2017-05-01] MEDS: NORMAL SALINE 1000 ML 1,000 ML IV PRN (12:30)
[2017-05-01] MEDS: NORMAL SALINE IV SCH (12:30)
[2017-05-01] MEDS: DAPTOMYCIN IV SCH (12:30)
[2017-05-01] MEDS: NORMAL SALINE INJ/PF 0.9% 10 ML SDV IV PRN (13:59)
[2017-05-01] MEDS ORDERED: MECLIZINE HCL 25 MG TABLET PO PRN (15:26)
--- NOTE | 2017-05-01 15:35 | PDOC PROGRESS REPORT ---
Subjective Progress Note for:: 05/01/17 Subjective:: The patient is resting in his bed and states that he is not feeling well today. He states that he became quite dizzy when he got up last night and he got dizzy again this morning. He just feels weak and does not feel as if he is able to go home. He denies fever chills. He has had no chest pain, shortness of breath or heart palpitations. No nausea or vomiting. No diarrhea. He is not having any abdominal pain. He is voiding without difficulty. Physical Exam Vital Signs: Temp Pulse Resp BP Pulse Ox 98.3 F 88 18 134/78 H 99 05/01/17 11:38 05/01/17 11:38 05/01/17 11:38 05/01/17 11:38 05/01/17 11:38 Intake & Output 04/30/17 05/01/17 05/02/17 06:59 06:59 06:59 Intake Total 3190 3952 Output Total 500 Balance 3190 3452 Weight 120.7 kg 120.7 kg General appearance: PRESENT: no acute distress, well-developed, well-nourished, other - He looks as if he does not feel well Head exam: PRESENT: atraumatic, normocephalic Mouth exam: PRESENT: moist, tongue midline Respiratory exam: PRESENT: clear to auscultation vanessa. ABSENT: rales, rhonchi, wheezes Cardiovascular exam: PRESENT: RRR. ABSENT: diastolic murmur, rubs, systolic murmur GI/Abdominal exam: PRESENT: normal bowel sounds, soft. ABSENT: distended, guarding, mass, organolmegaly, rebound, tenderness Extremities exam: PRESENT: full ROM - He has venous stasis changes to the lower extremities bilaterally. Left lower extremity has a bandage in place on the foot that was not removed because of the time of this dictation., other - He has venous c stasis changes to the lower extremities bilaterally. Left lower extremity has a bandage in place on the foot that was not removed because of the time of this dictation.. ABSENT: calf tenderness, clubbing, pedal edema Neurological exam: PRESENT: alert, awake, oriented to person, oriented to place , oriented to time, oriented to situation, CN II-XII grossly intact. ABSENT: motor sensory deficit Psychiatric exam: PRESENT: appropriate affect, normal mood. ABSENT: homicidal ideation, suicidal ideation Skin exam: PRESENT: dry, intact, warm. ABSENT: cyanosis, rash Results Laboratory Results: 04/29/17 12:00 04/30/17 06:05 Impressions: Chest X-Ray 04/24/17 00:00 IMPRESSION: Central venous access catheter placed via right IJ approach. Catheter tip at inferior right atrium near the IVC junction. No pneumothorax. Foot X-Ray 04/24/17 12:20 IMPRESSION: STABLE CHRONIC FINDINGS AND SURGICAL CHANGES. NOTHING ACUTE. Lower Extremity MRI 04/26/17 00:00 IMPRESSION: Osteomyelitis of the residual proximal phalanges of the seconds and 3rd radius. Minimal marrow signal alteration of the distal seconds and 3rd metatarsals. All associated with extensive soft tissue edema without soft tissue abscess. Guidance Fluoroscopy 04/27/17 00:00 IMPRESSION: SUCCESSFUL PLACEMENT OF A 5 FR DUAL LUMEN 44 CM PICC IN THE LEFT BASILIC VEIN. Interventional Vascular Procedure 04/27/17 00:00 IMPRESSION: SUCCESSFUL PLACEMENT OF A 5 FR DUAL LUMEN 44 CM PICC IN THE LEFT BASILIC VEIN. PICC Line Insertion 04/27/17 00:00 IMPRESSION: SUCCESSFUL PLACEMENT OF A 5 FR DUAL LUMEN 44 CM PICC IN THE LEFT BASILIC VEIN. Assessment & Plan - Diagnosis (1) Osteomyelitis of left foot Qualifiers: Osteomyelitis type: subacute Qualified Code(s): M86.272 - Subacute osteomyelitis, left ankle and foot Is this a current diagnosis for this admission?: YesPlan: He will continue IV daptomycin.. We will put him on p.o. Levaquin to cover Pseudomonas. Unfortunately it does not appear that we have any cultures from his debridement. He is going to need 6 weeks of IV antibiotics. This is day # 8 out of 42 days of appropriate antibiotic treatment. (2) Cellulitis of right lower extremity Plan: Plan as above. This is due to his underlying diabetic foot ulcer and osteomyelitis. (3) Diabetic infection of left foot Plan: He is on broad-spectrum IV antibiotics to cover MRSA as well as Pseudomonas. At this point there are no cultures to drive therapy. His IV antibiotics have been changed to daptomycin and Levaquin. (4) HIV (human immunodeficiency virus infection) Is this a current diagnosis for this admission?: YesPlan: His antiretrovirals have been ordered. I am not sure whether he is actually getting these. Hopefully he can get back on these as soon as possible. I will follow up with the nursing staff. It was my understanding he was bringing his home medication from home and it would be reliable. (5) Hyperglycemia due to type 2 diabetes mellitus Qualifiers: Diabetes mellitus supervisor intermediates insulin use: unspecified half-way insulin use status Qualified Code(s): E11.65 - Type 2 diabetes mellitus with hyperglycemia Plan: Blood sugar is finally much improved. We will continue on the current regimen. (6) Peripheral vascular disease Plan: He has mild ischemia in his right lower extremity. No intervention is necessary at this point. (7) Tobacco abuse Is this a current diagnosis for this admission?: YesPlan: Certainly would be in his best interest to quit smoking. He has a nicotine patch in place. (8) Bipolar disorder Qualifiers: Active/Remission status: remission status unspecified Qualified Code (s): F31.9 - Bipolar disorder, unspecified Is this a current diagnosis for this admission?: YesPlan: Appears to be stable. Continue home regimen. He does have a history of polysubstance abuse in the past. I am not going to escalate his narcotics at this point. (9) CKD (chronic kidney disease), stage III Is this a current diagnosis for this admission?: YesPlan: Stable. I believe his creatinine is getting back to his baseline. (10) Acute renal failure Qualifiers: Acute renal failure type: unspecified Qualified Code(s): N17.9 - Acute kidney failure, unspecified Plan: His creatinine is improving with treatment. This was likely due to his underlying infection. (11) Nightmares Plan: He reports a history of PTSD. He was started on trazodone last night. The patient reports being somewhat dizzy. I am going to decrease his trazodone to 50 mg nightly. (12) Dizziness Plan: I am unsure what is causing this. I will give the patient some meclizine and see if this helps. He was started on 100 mg of trazodone at night to help him sleep as he was having nightmares. When he cut this back to 50 mg nightly. I also am going to get the nursing staff to check orthostatic vital signs on the patient and I will obtain random and a.m. cortisol on the patient as well. I will also add a TSH as well. - Time Time Spent with patient: 15-24 minutes Disposition: Inpatient hospitalization remains necessary. He is set up for home antibiotics. We will watch him in the hospital overnight. Hopefully his dizziness will improve and he can be discharged home tomorrow.
[2017-05-01] MEDS ORDERED: OXYCODONE-ACETAMINOPHEN 5-325 MG TABLET PO PRN (18:28)
[2017-05-01] MEDS: INSULIN GLARGINE,HUM.REC.ANLOG 1,000 UNIT/10 ML UNIT SUBCUT SCH (22:31)
[2017-05-01] MEDS: SIMVASTATIN 10 MG TABLET PO SCH (22:33)
[2017-05-01] MEDS: TRAZODONE HCL 50 MG TABLET PO SCH (22:34)
[2017-05-02] MEDS: ALPRAZOLAM 0.5 MG TABLET PO PRN (03:35)
[2017-05-02] MEDS: MORPHINE SULFATE 10 MG/ML INJ IV PRN (03:54)
[2017-05-02] MEDS: HYDRALAZINE HCL 50 MG TABLET PO SCH (06:25)
[2017-05-02] MEDS: LANSOPRAZOLE 30 MG TAB.RAP.DR PO SCH (06:25)
[2017-05-02] MEDS: HEPARIN SOD (PORCINE) 5,000 UNIT/ML 1 ML SYRINGE SUBCUT SCH (06:26)
[2017-05-02] MEDS: INSULIN LISPRO 100 UNIT/ML 3 ML VIAL SUBCUT SCH ×2 (08:08→12:13)
[2017-05-02] MEDS: NICOTINE 21 MG/24 HR PATCH.TD24 TD SCH (10:55)
[2017-05-02] MEDS: ARIPIPRAZOLE 5 MG TABLET PO SCH (10:55)
[2017-05-02] MEDS: ATENOLOL 50 MG TABLET PO SCH (10:55)
[2017-05-02] MEDS: CLONIDINE HCL 0.1 MG TABLET PO SCH (10:56)
[2017-05-02] MEDS: FLUOXETINE HCL 20 MG CAPSULE PO SCH (10:56)
[2017-05-02] MEDS: LEVOFLOXACIN 750 MG TABLET PO SCH (10:56)
[2017-05-02] MEDS: GABAPENTIN 400 MG CAPSULE PO SCH (10:56)
[2017-05-02] MEDS: THIAMINE HCL 100 MG TABLET PO SCH (10:56)
[2017-05-02] MEDS: DOCUSATE SODIUM 100 MG CAPSULE PO SCH (10:57)
[2017-05-02] MEDS: NORMAL SALINE 1000 ML 1,000 ML IV PRN (11:09)
[2017-05-02] MEDS: NORMAL SALINE IV SCH (12:13)
[2017-05-02] MEDS: DAPTOMYCIN IV SCH (12:13)
[2017-05-02] MEDS: INSULIN LISPRO 100 UNIT/ML 3 ML VIAL SUBCUT PRN (12:13)
--- NOTE | 2017-05-02 13:25 | PDOC DISCHARGE SUMMARY ---
General - Admit/Disc Date/PCP Admission Date/Primary Care Provider: 04/24/17 16:37 [facility] first Wound care clinic Discharge Date: 05/02/17 - Discharge Diagnosis (1) Osteomyelitis of left foot Is this a current diagnosis for this admission?: YesSummary: The patient has underlying osteomyelitis. He is completed 9 out of 42 days of treatment. He has home health and outpatient antibiotics set up. He will follow-up at the wound care clinic. He did have his wound surgically debrided by general surgery. (2) Cellulitis of right lower extremity Summary: Secondary to underlying diabetes mellitus and diabetic foot infection. Plan as above (3) Diabetic infection of left foot Summary: Plan as above. He will follow-up at wound care clinic (4) HIV (human immunodeficiency virus infection) Is this a current diagnosis for this admission?: YesSummary: He will continue his antiretrovirals. (5) Hyperglycemia due to type 2 diabetes mellitus Summary: His blood sugar medications were titrated here in the hospital. Currently well controlled. We will continue this regimen when he gets out of the hospital. (6) Peripheral vascular disease Summary: He had arterial Dopplers performed which revealed mild ischemia. No intervention needed at this time. (7) Tobacco abuse Is this a current diagnosis for this admission?: YesSummary: Certainly would be in his best interest to quit smoking. (8) Bipolar disorder Is this a current diagnosis for this admission?: YesSummary: Continue home regimen (9) CKD (chronic kidney disease), stage III Is this a current diagnosis for this admission?: YesSummary: He will follow-up with his primary care provider. His creatinine is stable. His chronic kidney disease is due to diabetic nephropathy. (10) Acute renal failure Summary: Likely secondary to medications and osteomyelitis. Resolved (11) Nightmares Summary: I will defer to his primary care physician on whether he needs treatment with prazosin (12) Dizziness Summary: The patient has an extremely low fasting cortisol level. I am going to refer him to endocrinology in [place] as an outpatient for further workup and also to follow him for his uncontrolled diabetes mellitus. - Additional Information Resuscitation Status: Full Code Discharge Diet: Diabetic Discharge Activity: Activity As Tolerated, Balance Activity w/Rest, Keep Legs Elevated, Slowly Increase Activity Home Medications: Alprazolam [Xanax] 2 mg PO Q12 04/24/17 Amitriptyline HCl [Elavil 25 mg Tablet] 25 mg PO DAILY 04/24/17 Clonidine HCl [Catapres 0.1 mg Tablet] 0.1 mg PO Q12 04/24/17 Cyclobenzaprine HCl [Flexeril 10 mg Tablet] 10 mg PO TIDP PRN 04/24/17 Emtricitab/Rilpiviri/Tenof Ala [Odefsey Tablet] 1 each PO DAILY 04/24/17 Fluoxetine HCl [Prozac] 40 mg PO DAILY 04/24/17 Gabapentin [Neurontin 400 mg Capsule] 400 mg PO BID 04/24/17 Simvastatin [Zocor 20 mg Tablet] 20 mg PO QHS 04/24/17 Zolpidem Tartrate [Ambien] 15 mg PO HSP PRN 04/24/17 Acetaminophen [Tylenol 325 mg Tablet] 650 mg PO Q4HP PRN tablet 05/02/17 Alprazolam [Xanax 0.5 mg Tablet] 0.5 mg PO Q12HP PRN #30 tablet 05/02/17 Aripiprazole [Abilify 5 mg Tablet] 20 mg PO DAILY tablet 05/02/17 Atenolol [Tenormin 50 mg Tablet] 50 mg PO DAILY #30 tablet 05/02/17 Docusate Sodium [Colace 100 mg Capsule] 100 mg PO DAILY capsule 05/02/17 Hydralazine HCl 25 mg PO TID #90 tablet 05/02/17 Insulin Glargine,Hum.rec.anlog [Lantus Insulin 100 Unit/1 ml 10 ml] 85 unit SUBCUT QHS unit 05/02/17 Insulin Lispro [Humalog Insulin (Lispro) 100 unit/mL] 20 unit SUBCUT AC unit Ipratropium/Albuterol Sulfate [Duoneb 3 ml Ampul] 3 ml NEB RTQ6HP PRN vial.neb 05/02/17 Lansoprazole [Prevacid 30 mg Odt Tablet] 30 mg PO Q6AM tab. 05/02/17 Oxycodone HCl/Acetaminophen [Percocet 5-325 mg Tablet] 1 tab PO Q6HP PRN #30 tablet 05/02/17 History of Present Illness History of Present Illness: MILADYS LONDON III is a 46 year old male who presented to the hospital with worsening diabetic foot infection. Hospital Course Hospital Course: The patient is an unfortunate 46-year-old -[place] gentleman who presented to the emergency room from the wound care clinic with worsening left foot pain. He has uncontrolled diabetes mellitus and has lost several toes in the past due to osteomyelitis related to his underlying diabetes and peripheral vascular disease. His other pertinent past medical history is significant for HIV infection. He also has underlying bipolar disorder. The patient was admitted to the hospital. Dr. Fry debrided the wound. He was found to have evidence of underlying osteomyelitis and is being sent home to complete a 6 week course of IV daptomycin. Unfortunately deep cultures were not obtained during the surgical debridement to guide therapy. Overall over the course of the hospitalization he is improved. He did have markedly uncontrolled diabetes and his insulin was titrated and currently his blood sugars are controlled at the time of discharge. The day before discharge the patient developed some dizziness. A fasting cortisol level was obtained which was quite low. At the time of discharge he is feeling better. He has had no further dizzy spells and desires to go home. The discharge planners to set up outpatient IV antibiotics to complete his therapy. I am going to refer him to endocrinology to help with his blood sugars and also perform further workup for adrenal insufficiency. He will keep his regular appointment at the wound care clinic and follow-up at [facility] in the near future. Home health has been set up to help follow him during his course of IV antibiotics. At this point maximum hospital benefit has been reached. The patient will be discharged home today in stable condition. Physical Exam Vital Signs: Temp Pulse Resp BP Pulse Ox 98.3 F 84 16 137/86 H 98 05/02/17 11:08 05/02/17 11:08 05/02/17 11:08 05/02/17 11:08 05/02/17 11:08 Intake & Output 05/01/17 05/02/17 05/03/17 06:59 06:59 06:59 Intake Total 3952 4020 Output Total 500 Balance 3452 4020 Weight 120.7 kg 122.3 kg General appearance: PRESENT: no acute distress, well-developed, well-nourished Head exam: PRESENT: atraumatic, normocephalic Respiratory exam: PRESENT: clear to auscultation vanessa. ABSENT: rales, rhonchi, wheezes Cardiovascular exam: PRESENT: RRR. ABSENT: diastolic murmur, rubs, systolic murmur GI/Abdominal exam: PRESENT: normal bowel sounds, soft. ABSENT: distended, guarding, mass, organolmegaly, rebound, tenderness Extremities exam: PRESENT: other - He has a bandage in place that was not removed because of the time of this dictation.. ABSENT: calf tenderness, clubbing Neurological exam: PRESENT: alert, awake, oriented to person, oriented to place , oriented to time, oriented to situation, CN II-XII grossly intact. ABSENT: motor sensory deficit Psychiatric exam: PRESENT: appropriate affect, normal mood. ABSENT: homicidal ideation, suicidal ideation Skin exam: PRESENT: dry, intact, warm. ABSENT: cyanosis, rash Results Laboratory Results: 04/29/17 12:00 04/30/17 06:05 05/02/17 04:28 TSH 0.52 Impressions: Chest X-Ray 04/24/17 00:00 IMPRESSION: Central venous access catheter placed via right IJ approach. Catheter tip at inferior right atrium near the IVC junction. No pneumothorax. Foot X-Ray 04/24/17 12:20 IMPRESSION: STABLE CHRONIC FINDINGS AND SURGICAL CHANGES. NOTHING ACUTE. Lower Extremity MRI 04/26/17 00:00 IMPRESSION: Osteomyelitis of the residual proximal phalanges of the seconds and 3rd radius. Minimal marrow signal alteration of the distal seconds and 3rd metatarsals. All associated with extensive soft tissue edema without soft tissue abscess. Guidance Fluoroscopy 04/27/17 00:00 IMPRESSION: SUCCESSFUL PLACEMENT OF A 5 FR DUAL LUMEN 44 CM PICC IN THE LEFT BASILIC VEIN. Interventional Vascular Procedure 04/27/17 00:00 IMPRESSION: SUCCESSFUL PLACEMENT OF A 5 FR DUAL LUMEN 44 CM PICC IN THE LEFT BASILIC VEIN. PICC Line Insertion 04/27/17 00:00 IMPRESSION: SUCCESSFUL PLACEMENT OF A 5 FR DUAL LUMEN 44 CM PICC IN THE LEFT BASILIC VEIN. Qualifiers PATEINT BEING DISCHARGED WITH ANY OF THE FOLLOWING DIAGNOSIS?: No Plan Time Spent: Greater than 30 Minutes
[2017-05-02 13:38] VITALS: BP 166/104
== END 2017-05-02 14:00 | disposition home health service (06) | DRG 622 ==
LOC: ER 11:50 → EH 16:11 → OBSVTOIN 16:37 → 4S 18:02
PROC: 02H633Z Insertion of Infusion Device into Right Atrium, Percutaneous Approach (ICD-10-PCS; principal; 2017-04-24)
PROC: 0HBNXZZ Excision of Left Foot Skin, External Approach (ICD-10-PCS; 2017-04-24)
PROC: B244ZZZ Ultrasonography of Right Heart (ICD-10-PCS; 2017-04-24)
PROC: 02HV33Z Insertion of Infusion Device into Superior Vena Cava, Percutaneous Approach (ICD-10-PCS; 2017-04-27)
PROC: B518ZZA Fluoroscopy of Superior Vena Cava, Guidance (ICD-10-PCS; 2017-04-27)
PROC: B548ZZA Ultrasonography of Superior Vena Cava, Guidance (ICD-10-PCS; 2017-04-27)
DX: E11.69 Type 2 diabetes mellitus with other specified complication (principal); B20 Human immunodeficiency virus [HIV] disease; M86.272 Subacute osteomyelitis, left ankle and foot; L03.115 Cellulitis of right lower limb; E27.49 Other adrenocortical insufficiency; E11.65 Type 2 diabetes mellitus with hyperglycemia; E11.21 Type 2 diabetes mellitus with diabetic nephropathy; E11.22 Type 2 diabetes mellitus with diabetic chronic kidney disease; E11.621 Type 2 diabetes mellitus with foot ulcer; L97.521 Non-pressure chronic ulcer of other part of left foot limited to breakdown of skin; E87.5 Hyperkalemia; N18.3 Chronic kidney disease, stage 3 (moderate); L08.9 Local infection of the skin and subcutaneous tissue, unspecified; N17.9 Acute kidney failure, unspecified; I73.9 Peripheral vascular disease, unspecified; F31.9 Bipolar disorder, unspecified; F43.10 Post-traumatic stress disorder, unspecified; F51.5 Nightmare disorder; R42 Dizziness and giddiness; F17.210 Nicotine dependence, cigarettes, uncomplicated; F14.10 Cocaine abuse, uncomplicated; Z96.651 Presence of right artificial knee joint; Z79.899 Other long term (current) drug therapy; Z79.4 Long term (current) use of insulin; Z89.422 Acquired absence of other left toe(s); Z89.421 Acquired absence of other right toe(s); Z86.14 Personal history of Methicillin resistant Staphylococcus aureus infection
CPT/HCPCS: 36415; 36569; 71010; 76937; 77001; 80048; 80053; 80202; 81001; 82533; 82565; 82803; 82962; 83036; 83735; 84443; 85025; 85027; 85610; 85652; 86140; 87040; 93925; 96360; 99284; C1751; J0692; J0878; J1642; J1644; J1815; J1956; J2270; J3370; J3490; J7030; J7060

== ENCOUNTER 2017-05-21 10:57 | Inpatient (IN) | payer MEDICARE, MEDICAID ==
--- NOTE | 2017-05-21 11:02 | ER Document Report ---
ED General - General Stated Complaint: WEAKNESS Mode of Arrival: Medic Information source: Patient Notes: 46-year-old diabetic male history of HIV presents from wound care with concerns of generalized weakness not feeling well. Patient took 75 units of Lantus approximately 7 AM this morning, went to the wound care clinic for evaluation of left foot post amputation of the 2 digits which was done 3 weeks ago. Patient had a PICC line in which was also infected. Patient noted to have a blood sugar of 415 by EMS Patient denies any fevers or chills admits to generalized malaise TRAVEL OUTSIDE OF THE [place] IN LAST 30 DAYS: No - HPI Onset: This morning Onset/Duration: Persistent Quality of pain: Achy Severity: Mild Pain Level: 1 Associated symptoms: Weakness Exacerbated by: Denies Relieved by: Denies Similar symptoms previously: Yes Recently seen / treated by doctor: Yes - Related Data Allergies/Adverse Reactions: Penicillins Allergy (Verified 05/21/17 11:29) rash Past Medical History - Social History Smoking Status: Never Smoker Cigarette use (# per day): No Chew tobacco use (# tins/day): No Smoking Education Provided: No Family History: Reviewed & Not Pertinent, CAD, COPD, DM, Hyperlipidemia, Hypertension - Past Medical History Cardiac Medical History: Reports: Hx Coronary Artery Disease, Hx Heart Attack, Hx Hypercholesterolemia, Hx Hypertension, Hx Peripheral Vascular Disease, Hx Pulmonary Embolism Pulmonary Medical History: Reports: Hx Asthma, Hx COPD, Hx Pneumonia - 1 year ago Neurological Medical History: Reports: Hx Seizures - 4 years ago; Depakote stopped by his physician. Endocrine Medical History: Reports: Hx Diabetes Mellitus Type 1, Hx Diabetes Mellitus Type 2 - IDDM Renal/ Medical History: Reports: Hx Renal Insufficiency. Denies: Hx Peritoneal Dialysis Malignancy Medical History: GI Medical History: Reports: Hx Hepatitis Musculoskeltal Medical History: Reports Hx Arthritis, Reports Hx Musculoskeletal Trauma Skin Medical History: Reports Hx MRSA Psychiatric Medical History: Reports: Hx Anxiety, Hx Bipolar Disorder, Hx Depression - & anxiety, Hx Post Traumatic Stress Disorder Traumatic Medical History: Reports: Hx Fractures - Knee pelvis and hand Infectious Medical History: Reports: Hx Hepatitis, Hx HIV - Patient reports no detectable viral count, Hx MRSA Past Surgical History: Reports: Hx Oral Surgery - Removal of most of teeth, Hx Orthopedic Surgery - right knee replacement, rt toe amputation; amputation 2 left toes., Other - Laser eye surgery - Immunizations Immunizations up to date: Yes Hx Diphtheria, Pertussis, Tetanus Vaccination: Yes Hx Pneumococcal Vaccination: 11/09/13 Review of Systems - Review of Systems Notes: REVIEW OF SYSTEMS: CONSTITUTIONAL : Admits to generalized malaise EENT: Denies eye, ear, throat, or mouth pain or symptoms. Denies nasal or sinus congestion or discharge. Denies throat, tongue, or mouth swelling or difficulty swallowing. CARDIOVASCULAR: Denies chest pain. Denies palpitations or racing or irregular heart beat. Denies ankle edema. RESPIRATORY: Denies cough, cold, or chest congestion. Denies shortness of breath, difficulty breathing, or wheezing. GASTROINTESTINAL: Denies abdominal pain or distention. Denies nausea, vomiting , or diarrhea. Denies blood in vomitus, stools, or per rectum. Denies black, tarry stools. Denies constipation. GENITOURINARY: Denies difficulty urinating, painful urination, burning, frequency, blood in urine, or discharge. MUSCULOSKELETAL: Denies back or neck pain or stiffness. Denies joint pain or swelling. SKIN: Admits to left foot amputation of digits HEMATOLOGIC : Denies easy bruising or bleeding. LYMPHATIC: Denies swollen, enlarged glands. NEUROLOGICAL: Denies confusion or altered mental status. Denies passing out or loss of consciousness. Denies dizziness or lightheadedness. Denies headache. Denies weakness or paralysis or loss of use of either side. Denies problems with gait or speech. Denies sensory loss, numbness, or tingling. Denies seizures. PSYCHIATRIC: Denies anxiety or stress. Denies depression, suicidal ideation, or homicidal ideation. ALL OTHER SYSTEMS REVIEWED AND NEGATIVE. Dictation was performed using [employer] voice recognition software PHYSICAL EXAMINATION: GENERAL: Well-appearing, well-nourished and in no acute distress. HEAD: Atraumatic, normocephalic. EYES: Pupils equal round and reactive to light, extraocular movements intact, sclera anicteric, conjunctiva are normal. ENT: Nares patent, oropharynx clear without exudates. Moist mucous membranes. NECK: Normal range of motion, supple without lymphadenopathy LUNGS: Breath sounds clear to auscultation bilaterally and equal. No wheezes rales or rhonchi. HEART: Regular rate and rhythm without murmurs ABDOMEN: Soft, nontender, nondistended abdomen. No guarding, no rebound. No masses appreciated. Musculoskeletal: Left foot second and fourth digit amputation left bicep PICC line access NEUROLOGICAL: Cranial nerves grossly intact. Normal speech, normal gait. Normal sensory, motor exams PSYCH: Normal mood, normal affect. SKIN: No redness pus noted Physical Exam - Vital signs Vitals: Temp Pulse Resp BP Pulse Ox 97.4 F 64 20 155/98 H 98 05/21/17 11:39 05/21/17 11:39 05/21/17 11:39 05/21/17 11:39 05/21/17 11:39 Course - Re-evaluation Re-evalutation: 05/21/17 11:04 Patient noted to be quite hyperglycemic, lab work pending 05/21/17 13:47 pt noted to have potassium of 6.5, treated immediately , will admit with peaked t waves - Vital Signs Vital signs: Temp Pulse Resp BP Pulse Ox 97.4 F 64 20 155/98 H 98 05/21/17 11:39 05/21/17 11:39 05/21/17 11:39 05/21/17 11:39 05/21/17 11:39 - Laboratory Result Diagrams: 05/21/17 12:30 05/21/17 12:30 Laboratory results interpreted by me: 05/21/17 05/21/17 12:30 12:30 RBC 3.91 L Hgb 10.9 L Hct 33.9 L RDW 15.1 H Monocytes % 15.4 H Sodium 136.1 L Potassium 6.5 H* BUN 38 H Creatinine 1.90 H Est GFR ( Amer) 46 L Est GFR (Non-Af Amer) 38 L Glucose 322 H Critical Care Note - Critical Care Note Total time excluding time spent on procedures (mins): 31 Comments: 31 minutes of critical care time spent in direct contact evaluating and reevaluating the patient, treating symptoms, reviewing labs and studies and speaking with family and consultants excluding any procedures Discharge - Discharge Clinical Impression: HIV (human immunodeficiency virus infection), Hyperkalemia, Dizziness Acute renal failure Qualifiers: Acute renal failure type: unspecified Qualified Code(s): N17.9 - Acute kidney failure, unspecified Osteomyelitis of left foot Qualifiers: Osteomyelitis type: subacute Qualified Code(s): M86.272 - Subacute osteomyelitis, left ankle and foot Hyperglycemia due to type 2 diabetes mellitus Qualifiers: Diabetes mellitus detention insulin use: with detention use Qualified Code(s): E11.65 - Type 2 diabetes mellitus with hyperglycemia
[2017-05-21] MEDS ORDERED: NORMAL SALINE 1000 ML 1,000 ML IV PRN (11:04)
[2017-05-21 12:58] LABS: ABSOLUTE BASOPHILS # (AUTO) 0.1 10^3/uL (0.0-0.2); ABSOLUTE EOSINOPHILS # (AUTO) 0.2 10^3/uL (0.0-0.6); ABSOLUTE LYMPHOCYTES (AUTO) 1.4 10^3/uL (0.5-4.7); ABSOLUTE NEUT (AUTO) 3.5 10^3/uL (1.7-8.2); EOSINOPHILS % (AUTO) 3.7 % (0-6); HEMATOCRIT 33.9 % (37.9-51.0); HEMOGLOBIN 10.9 g/dL (13.5-17.0); HGB HCT DIFFERENCE -1.2; LYMPHOCYTES % (AUTO) 22.6 % (13-45); MEAN CORPUSCULAR HEMOGLOBIN 27.9 pg (27.0-33.4); MEAN CORPUSCULAR HGB CONC 32.2 g/dL (32.0-36.0); MEAN CORPUSCULAR VOLUME 87 fl (80-97); MONOCYTES % (AUTO) 15.4 % (3-13); RED BLOOD COUNT 3.91 10^6/uL (4.35-5.55); RED CELL DISTRIBUTION WIDTH 15.1 % (11.5-14.0); SEGMENTED NEUTROPHILS % (AUTO) 57.3 % (42-78); WHITE BLOOD COUNT 6.2 10^3/uL (4.0-10.5)
[2017-05-21 13:04] LABS: PROTHROMBIN TIME 12.9 SEC (11.4-15.4)
[2017-05-21 13:10] LABS: VENOUS BLOOD HCO3 25.2 mmol/L (20-32); VENOUS BLOOD PCO2 48.4 mmHg (35-63); VENOUS BLOOD PH 7.34 (7.30-7.42)
[2017-05-21 13:12] LABS: ALANINE AMINOTRANSFERASE 33 U/L (21-72); ALBUMIN 4.1 g/dL (3.5-5.0); ALKALINE PHOSPHATASE 108 U/L (38-126); ANION GAP 10 (5-19); ASPARTATE AMINO TRANSFERASE 24 U/L (17-59); BILIRUBIN,DIRECT 0.4 mg/dL (0.0-0.4); BILIRUBIN,TOTAL 0.4 mg/dL (0.2-1.3); BLOOD UREA NITROGEN 38 mg/dL (7-20); CALCIUM 9.2 mg/dL (8.4-10.2); CARBON DIOXIDE 25 mmol/L (22-30); CHLORIDE 101 mmol/L (98-107); GLUCOSE 322 mg/dL (75-110); SODIUM 136.1 mmol/L (137-145); TOTAL PROTEIN 8.1 g/dL (6.3-8.2)
[2017-05-21 13:15] LABS: POTASSIUM 6.5 mmol/L (3.6-5.0)
[2017-05-21] MEDS ORDERED: INSULIN REG, HUMAN 100 UNIT/ML 3 ML VIAL (PYX) IV ONE (13:21)
[2017-05-21] MEDS ORDERED: ALBUTEROL SULFATE 0.083% NEB 2.5 MG/3 ML AMPUL NEB ONE (13:21)
[2017-05-21] MEDS ORDERED: SODIUM BICARBONATE 8.4% INJ 10 MEQ/10 ML DISP.SYRIN IV ONE (13:21)
[2017-05-21] MEDS ORDERED: CALCIUM GLUCONATE 1000 MG/10 ML INJ IV ONE (13:27)
--- NOTE | 2017-05-21 13:28 | RADIOLOGY REPORT (SQ) ---
EXAM DESCRIPTION: CHEST SINGLE VIEW COMPLETED DATE/TIME: 05/21/2017 1:12 pm REASON FOR STUDY: generalized illness COMPARISON: None. EXAM PARAMETERS: NUMBER OF VIEWS: One view. TECHNIQUE: Single frontal radiographic view of the chest acquired. RADIATION DOSE: NA LIMITATIONS: None. FINDINGS: LUNGS AND PLEURA: No opacities, masses or pneumothorax. No pleural effusion. MEDIASTINUM AND HILAR STRUCTURES: No masses. Contour normal. HEART AND VASCULAR STRUCTURES: Heart normal in size. Normal vasculature. BONES: No acute findings. HARDWARE: A PICC line is present on the left. The tip of the catheter is in the superior vena cava. OTHER: No other significant finding. IMPRESSION: NO ACUTE RADIOGRAPHIC FINDING IN THE CHEST. TECHNICAL DOCUMENTATION: JOB ID: [id number]
[2017-05-21] MEDS ORDERED: SODIUM BICARBONATE 8.4% INJ 50 MEQ/50 ML DISP.SYRIN IV ONE (13:32)
[2017-05-21 14:10] LABS: APPEARANCE,URINE CLEAR; BILIRUBIN,URINE NEGATIVE (NEGATIVE); GLUCOSE, URINE >=500 mg/dL (NEGATIVE); KETONES,URINE NEGATIVE (NEGATIVE); LEUKOCYTE ESTERASE,URINE NEGATIVE (NEGATIVE); NITRITE,URINE NEGATIVE (NEGATIVE); PROTEIN,URINE 30 mg/dL (NEGATIVE); URINE SPECIFIC GRAVITY 1.013; UROBILINOGEN,URINE NEGATIVE mg/dL (<2.0)
[2017-05-21] MEDS ORDERED: NALOXONE HCL INJ/PF 0.4 MG/1 ML SDV IV SCH (14:45)
--- NOTE | 2017-05-21 14:46 | Progress Note ---
Provider Note Provider Note: SURYA HOOK Search Criteria: Last Name 'Surya' and First Name Jacinta' and = ' and Request Period = 11/22/16' to 05/21/17' - 14 out of 14 Recipients Selected. Fill Date Product, Str, Form Qty Days Pt ID Prescriber Written RX# N/R* Pharm MED+ ------ ---- --------- --- ------- ----- --------- ------ 05/20/2017 ALPRAZOLAM 2 MG TABLET 60.00 30 [id number] 05/19/2017 [id number] N [id number] 00.0 05/07/2017 OXYCODONE HCL 15 MG TABLET 30.00 8 [id number] 05/07/2017 [id number] N [id number] 84.38 05/02/2017 OXYCODONE-ACETAMINOPHEN 5-325 30.00 3 [id number] 05/02/2017 [id number] N [id number] 75.0 04/23/2017 ALPRAZOLAM 2 MG TABLET 60.00 30 [id number] 04/20/2017 [id number] N [id number] 00.0 04/23/2017 ZOLPIDEM TARTRATE 10 MG TABLET 45.00 30 [id number] 2016 295015 N [id number] 00.0 04/09/2017 OXYCODONE-ACETAMINOPHEN 5-325 15.00 2 [id number] 04/07/2017 [id number] N [id number] 56.25 03/27/2017 ALPRAZOLAM 2 MG TABLET 60.00 30 [id number] 03/13/2017 [id number] N [id number] 00.0 03/03/2017 OXYCODON-ACETAMINOPHEN 7.5-325 60.00 30 [id number] 2016 029419 N [id number] 22.5 02/25/2017 ZOLPIDEM TARTRATE 10 MG TABLET 60.00 40 [id number] 2016 248942 N [id number] 00.0 02/25/2017 ALPRAZOLAM 2 MG TABLET 60.00 30 [id number] 02/25/2017 [id number] N [id number] 00.0 02/20/2017 OXYCODONE-ACETAMINOPHEN 5-325 20.00 4 [id number] 02/20/2017 [id number] N [id number] 37.5 02/04/2017 OXYCODONE-ACETAMINOPHEN 5-325 12.00 2 [id number] 02/04/2017 206509 N [id number] 45.0 01/26/2017 ZOLPIDEM TARTRATE 10 MG TABLET 45.00 30 [id number] 2016 [id number] N [id number] 00.0 01/26/2017 ALPRAZOLAM 2 MG TABLET 60.00 30 [id number] 01/26/2017 [id number] N [id number] 00.0 01/23/2017 OXYCODONE-ACETAMINOPHEN 10-325 30.00 5 [id number] 01/23/2017 [id number] N [id number] 90.0 01/09/2017 OXYCODONE-ACETAMINOPHEN 5-325 30.00 4 [id number] 01/09/2017 571743 N [id number] 56.25 12/24/2016 ALPRAZOLAM 2 MG TABLET 60.00 30 [id number] 12/15/2016 [id number] N [id number] 00.0 12/15/2016 ZOLPIDEM TARTRATE 10 MG TABLET 45.00 30 [id number] 2016 [id number] N [id number] 00.0 12/15/2016 HYDROCODON-ACETAMINOPHEN 5-325 12.00 2 [id number] 12/15/2016 [id number] N [id number] 30.0 11/25/2016 ZOLPIDEM TARTRATE 10 MG TABLET 30.00 30 [id number] 2016 968617 N [id number] 00.0 11/25/2016 ALPRAZOLAM 2 MG TABLET 60.00 30 [id number] 11/25/2016 719625 N [id number] 00.0 [id number] MONICA GARCIA; [facility], [address] [place] [address] [id number] OPAL MCCLENDON P, (DO); [facility], [address] [place] [address] [id number] ANTONIO MARTELL; [address] [id number] VINCENT PANDEY; [facility], [address] [place] [address] [id number] DALE SIERRA MD; [address] [place] [address] [id number] KEVIN CAMPBELL; [facility], [address] [place] [address] [id number] HECTOR LEE N; [facility], [address] [address] [id number] GEOFFREY MEYER (DO); [address] [place] [address]
[2017-05-21] MEDS ORDERED: DEXTROSE 50%-WATER 25 GM/50 ML DISP.SYRIN IV PRN ×2 (14:55)
[2017-05-21] MEDS ORDERED: DEXTROSE 40% GEL 15 GM TUBE PO PRN ×2 (14:55)
[2017-05-21] MEDS ORDERED: GLUCAGON,HUMAN RECOMB 1 MG INJ IM PRN (14:55)
[2017-05-21] MEDS ORDERED: FLUMAZENIL INJ 0.5 MG/5 ML VIAL IV ONE (15:30)
[2017-05-21] MEDS ORDERED: HYDRALAZINE HCL 25 MG TABLET PO ONE (15:45)
--- NOTE | 2017-05-21 16:41 | RADIOLOGY REPORT (SQ) ---
EXAM DESCRIPTION: PICC INSERTION; FLUORO/CV PLACEMENT COMPLETED DATE/TIME: 05/21/2017 4:28 pm REASON FOR STUDY: PICC replacement, IV abx; PICC REPLACEMENT, IV ABX COMPARISON: PICC insertion 04/27/2017 FLUOROSCOPY TIME: 53 seconds 6 C-arm images saved to PACS. TECHNIQUE: Fluoroscopic guided PICC replacement. LIMITATIONS: None. PROCEDURE: After written consent and assessment were obtained, the patient was brought into the fluo roscopy room and place supine on the table. The left arm an existing PICC was prepped and draped in a sterile fashion. The entry site was anesthetized with 1% lidocaine. A .018 guide wire was then in serted through the existing PICC and into the venous system. The old catheter was then removed and a new catheter measuring 46 cm was advanced over the wire and into the venous system. The wire was the n removed and the catheter was adhered to the patients arm with a stat lock. The catheter was then as pirated and flushed and a sterile bandage was placed over the access site. A fluoroscopic spot image was saved to PACS confirming the catheter tip within the superior vena cava. IMPRESSION: SUCCESSFUL OVER THE WIRE REPLACEMENT OF AN OLD PICC FOR A NEW ONE THAT IS 5 FR dual LUME N 46 CM PICC IN THE left ARM. COMMENT: Patient medication list reviewed: Yes- Quality ID# 130:Eligible professional attests to doc umenting in the medical record they obtained, updated, or reviewed the patient's current medications. . Quality ID 145: Final reports for procedures using fluoroscopy that document radiation exposure demetrius leyda, or exposure time and number of fluorographic images (if radiation exposure indices are not avail able) Quality ID #76: The patient was prepped and draped using maximum sterile barrier technique including cap, mask, sterile gown, sterile gloves, a large sterile sheet, hand hygiene, and 2% Chlorhexidine fo r cutaneous antisepsis. When ultrasound is used, sterile ultrasound techniques are followed requiring sterile gel and sterile probes. TECHNICAL DOCUMENTATION: JOB ID: [id number] [employer] All Rights Reserved
--- NOTE | 2017-05-21 16:49 | HISTORY AND PHYSICAL E ---
History and Physical NAME: MILADYS LONDON : 1970 AGE: 46Y ADMITTED: 05/21/2017 ROOM: ED12 CODE STATUS: FULL CODE. PRIMARY CARE PROVIDER: Alyssa Wray NP CHIEF COMPLAINT: Lethargy. HISTORY OF PRESENT ILLNESS: The patient is a 46-year-old male with a past medical history of human immunodeficiency virus and osteomyelitis with outpatient IV antibiotics. The patient is well known to the hospitalist service. The patient presented to the emergency department with complaints of weakness and lethargy. The patient stated that he had not taken his insulin in a number of days just because he had not been feeling well. The patient went to the [facility] today for evaluation of the left foot status post amputation of 2 digits which was done 3 weeks ago. Over there, the patient was noted to be at times difficult to arouse. Upon EMS arrival, the patient's blood sugar was found to be 415. The patient upon arrival was found to be difficult to awaken. The patient was noted to be afebrile. He was not tachycardic, normotensive and not hypoxic. A blood gas was done and the patient's pCO2 was 48; however, upon chemistry panel the patient's potassium was found to be 65, creatinine 1.9, glucose 322 with no evidence of acidosis. The patient's white count was 6.2; however, given the patient's EKG changes of peaked T waves and unarousability, the patient was referred to the hospitalist for admission and management. ALLERGIES: No known drug allergies. HOME MEDICATIONS: Include: 1. Percocet 5/325 one tablet p.o. every 6 hours p.r.n. 2. Prevacid 30 mg p.o. every morning. 3. DuoNeb 1 neb every 6 hours p.r.n. 4. Humalog 20 units subcutaneous before meals. 5. Lantus 85 units subcutaneous nightly. 6. Hydralazine 25 mg p.o. t.i.d. 7. Colace 100 mg p.o. daily. 8. Atenolol 50 mg p.o. daily. 9. Abilify 20 mg p.o. daily. 10. Xanax 0.5 mg p.o. 12-hour. 11. Tylenol 650 mg p.o. every 4 hours. 12. Ambien 15 mg p.o. nightly p.r.n. 13. Zocor 20 mg p.o. nightly. 14. Neurontin 400 mg p.o. b.i.d. 15. Prozac 40 mg p.o. daily. 16. Odefsey tablet 1 tablet p.o. daily. 17. Flexeril 10 mg p.o. t.i.d. p.r.n. 18. Catapres 0.1 mg p.o. every 12 hours. 19. Amitriptyline 25 mg p.o. daily. 20. Xanax 2 mg p.o. every 12 hours. PAST MEDICAL HISTORY: Remarkable for: 1. Morbid obesity with BMI of 37. 2. Human immunodeficiency virus. 3. Hyperlipidemia. 4. Hypertension. 5. Peripheral vascular disease. 6. Remote history of pulmonary embolism. 7. Asthma. 8. Questionable history of coronary artery disease. 9. COPD. 10. Seizure disorder, last seizure was 4 years ago. 11. Diabetes mellitus type 1 on type 2. 12. Chronic kidney disease stage 2 to 3. 13. Osteoarthritis. 14. Remote history of MRSA. 15. Anxiety disorder. 16. Bipolar disorder. 17. Depression. 18. Post-traumatic stress disorder. SOCIAL HISTORY: The patient continues to smoke anywhere from a quarter to a pack a day. The patient also reports alcohol use as daily, estimates he averages about 3 beers a day. The patient also does admit to recreational drug use of crack cocaine and marijuana. The patient is unemployed and the patient has refused to declare any surrogate decision maker. FAMILY MEDICAL HISTORY: Difficult to obtain given the patient's estrangement, but is able to note family members with diabetes and coronary artery disease. REVIEW OF SYSTEMS: A full review of systems was difficult to obtain given the patient's difficulty to arouse; however, the patient was able to deny any fevers and was able to deny current pain. The patient was able to admit to having high blood sugars, but the rest of other organ systems was unable to be obtained. PHYSICAL EXAMINATION: GENERAL: The patient is a well-developed, obese, ill-appearing 46-year-old male that will awaken and is alert to self and place, but not fully oriented to situation. He is unable to elaborate, but does not appear to be in acute distress. VITAL SIGNS: As follows: Temperature 97.4, pulse 64, respirations 20, blood pressure 155/98, oxygen saturation 98% on room air. SKIN: Warm and dry. No rash. Not diaphoretic. HEENT: The pupils are nearly pinpoint, slightly reactive. Extraocular muscles are intact. Sclerae are anicteric. There is no JVD. Tongue is midline. NECK: Supple. CARDIOVASCULAR SYSTEM: Heart is regular. There is no murmur or rub. CHEST: Clear symmetrical and unlabored. ABDOMEN: Obese, soft, nontender, nondistended. Bowel sounds present. No organomegaly. BACK: No CVA tenderness or sacral edema. EXTREMITIES: No clubbing, cyanosis, or edema. Pedal pulses +2 noted bilaterally with warm extremities. The patient's PIC line does appear to have advanced multiple centimeters out of his arm. This has been secured. PSYCHIATRIC: Unable to fully assess given the patient's grogginess. NEUROLOGICAL: Unable to fully cooperate given the patient's grogginess. DIAGNOSTICS: 1. Lab values are as follows: a. Hematology obtained on 05/21/2017: WBC 6.2, hemoglobin 10.9, hematocrit 33.9, platelet count 329,00. b. Coagulation obtained on 05/21/2017: PT 12.9, INR 0.91. c.. Venous blood gas obtained on 05/21/2017; pH of 7.34, pCO2 of 48.4, bicarb 25.2. d. Chemistry obtained on 05/21/2017: Sodium 136, potassium 6.5, chloride 101, carbon dioxide 25, BUN 38, creatinine 0.90, glucose 322, lactic acid 0.7, calcium 9.2, total bilirubin 0.4, AST 24, ALT 33, alkaline phosphatase 108, total protein 8.1, albumin 4.1. e. Urinalysis obtained on 05/21/2017: Color straw, appearance clear, pH , specific gravity 1.013, protein 30, glucose 500, ketones negative, occult blood negative, nitrite negative, bilirubin negative, urobilinogen negative, leukocyte esterase negative, WBCs 0, RBCs 0, epithelial squamous cells less than 1, ascorbic acid is negative. 2. Microbiology: a. Urine culture obtained on 05/21/2017 is pending. b. Blood cultures obtained on 05/21/2017 is pending. IMPRESSION AND PLAN: 1. Hyperkalemia. Most likely this is due to persistent hyperglycemia. The patient has received 2 liter bolus as well as 10 units of insulin. Will repeat the patient's chemistry and continue to aggressively hydrate. The patient also received calcium gluconate per the ER provider. 2. Acute on chronic kidney disease stage 2 to 3. The patient's creatinine is 1.9, baseline appears to be in the 1.2 range. Will aggressively hydrate and follow the patient's chemistries. 3. Diabetes mellitus type 1 on type 2. Will proceed with slide scale coverage and await followup labs before proceeding with insulin regimen. 4. Osteomyelitis of the left foot. Will continue the patient's IV antibiotics; however, will put in for the patient to have exchange of PIC line given that his PIC is coming out. Concern for possible infectious etiology as well, therefore, will obtain blood cultures. 5. Anemia of chronic disease. Hemoglobin is overall stable. 6. Acute encephalopathy. Feel strongly this is related to polypharmacy given that the patient's electrolytes and labs are not reflective of an exact source. The patient has had a large volume of opiates as well as benzodiazepines through various ER providers and pain management. Will give Narcan. If results not satisfactory, will proceed to Romazicon. At this time, the patient is protecting his airway and is somewhat arousable, but still quite groggy. 7. Tobacco dependency. Will add a p.r.n. nicotine patch. 8. Opiate dependency. Withhold the patient's medicines for now until he is arousable. 9. Anxiety. Will hold benzodiazepines given the patient's unarousability given the increased likelihood of mortality associated with opiates and benzodiazepines. Once the patient is more alert, will field counsel about the concurrent use of this and attempt to wean the patient from 1 medication over the other. DISPOSITION: The patient is a FULL CODE. Pending patient's symptomatology and diagnostic findings, will re-evaluate in the a.m. Will admit the patient to inpatient IMCU as the patient's expected length of stay will surpass 2 midnights. TIME SPENT: Time spent on this admission including assessment, plan, physical examination, patient education and review of extensive records was 50 minutes. DICTATING PHYSICIAN: DELANEY LAUREANO NP [id number] PHY#: [id number] ID: [id number] JOB#: [id number] ACCT: [id number] cc:Taylor NICHOLAS NP > KAITLIN
[2017-05-21 18:42] LABS: ANION GAP 10 (5-19); BLOOD UREA NITROGEN 32 mg/dL (7-20); CALCIUM 8.6 mg/dL (8.4-10.2); CARBON DIOXIDE 24 mmol/L (22-30); CHLORIDE 104 mmol/L (98-107); CREATININE RESULT 1.48 mg/dL (0.52-1.25); GLUCOSE 258 mg/dL (75-110); SODIUM 137.6 mmol/L (137-145)
--- NOTE | 2017-05-21 18:49 | EKG REPORT ---
SEVERITY:- NORMAL ECG - SINUS RHYTHM : Confirmed by: Wesley Zamora MD 21-May-2017 18:49:06
[2017-05-21] MEDS: INSULIN LISPRO 100 UNIT/ML 3 ML VIAL SUBCUT SCH (18:56)
[2017-05-21] MEDS: HEPARIN SOD (PORCINE) 5,000 UNIT/ML 1 ML SYRINGE SUBCUT SCH ×2 (18:56→21:12)
[2017-05-21] MEDS ORDERED: HYDRALAZINE HCL 25 MG TABLET ONE (18:57)
[2017-05-21 19:01] LABS: POTASSIUM 4.9 mmol/L (3.6-5.0)
[2017-05-21] MEDS: NORMAL SALINE 1000 ML 1,000 ML IV PRN (19:04)
[2017-05-21 20:41] LABS: URINE BARBITURATES SCREEN NEGATIVE; URINE METHADONE SCREEN NEGATIVE; URINE OPIATES LOW UNCONFIRMED POSITIVE; URINE PHENCYCLIDINE SCREEN NEGATIVE
[2017-05-21] MEDS: INSULIN LISPRO 100 UNIT/ML 3 ML VIAL SUBCUT PRN (21:12)
[2017-05-21] MEDS: HYDRALAZINE HCL 25 MG TABLET PO SCH (21:12)
[2017-05-21] MEDS ORDERED: SIMVASTATIN 10 MG TABLET PO SCH (22:00)
[2017-05-21] MEDS ORDERED: INSULIN GLARGINE,HUM.REC.ANLOG 1,000 UNIT/10 ML UNIT SUBCUT SCH (22:00)
[2017-05-22 04:43] LABS: HEMATOCRIT 33.8 % (37.9-51.0); HEMOGLOBIN 10.8 g/dL (13.5-17.0); HGB HCT DIFFERENCE -1.4; MEAN CORPUSCULAR HEMOGLOBIN 27.7 pg (27.0-33.4); MEAN CORPUSCULAR HGB CONC 31.9 g/dL (32.0-36.0); MEAN CORPUSCULAR VOLUME 87 fl (80-97); RED CELL DISTRIBUTION WIDTH 14.9 % (11.5-14.0); WHITE BLOOD COUNT 4.4 10^3/uL (4.0-10.5)
[2017-05-22 04:55] LABS: ANION GAP 9 (5-19); BLOOD UREA NITROGEN 29 mg/dL (7-20); CALCIUM 9.4 mg/dL (8.4-10.2); CARBON DIOXIDE 27 mmol/L (22-30); CHLORIDE 103 mmol/L (98-107); CREATININE RESULT 1.28 mg/dL (0.52-1.25); GLUCOSE 236 mg/dL (75-110); POTASSIUM 5.4 mmol/L (3.6-5.0); SODIUM 139.1 mmol/L (137-145)
[2017-05-22] MEDS: HYDRALAZINE HCL 25 MG TABLET PO SCH (05:07)
[2017-05-22] MEDS: HEPARIN SOD (PORCINE) 5,000 UNIT/ML 1 ML SYRINGE SUBCUT SCH (05:07)
[2017-05-22] MEDS ORDERED: LANSOPRAZOLE 30 MG TAB.RAP.DR PO SCH (06:00)
[2017-05-22] MEDS: NORMAL SALINE 1000 ML 1,000 ML IV PRN (07:19)
[2017-05-22] MEDS: INSULIN LISPRO 100 UNIT/ML 3 ML VIAL SUBCUT SCH ×2 (08:12→12:09)
[2017-05-22] MEDS: INSULIN LISPRO 100 UNIT/ML 3 ML VIAL SUBCUT PRN (08:12)
[2017-05-22] MEDS ORDERED: AMITRIPTYLINE HCL 25 MG TABLET PO SCH (10:00)
[2017-05-22] MEDS ORDERED: ATENOLOL 50 MG TABLET PO SCH (10:00)
[2017-05-22] MEDS ORDERED: ARIPIPRAZOLE 5 MG TABLET PO SCH (10:00)
[2017-05-22] MEDS ORDERED: DAPTOMYCIN 500 MG in NORMAL SALINE 50 ML IV SCH (10:00)
[2017-05-22] MEDS ORDERED: [UNRECOGNIZED DRUG - OTHER] PO SCH (10:00)
[2017-05-22] MEDS ORDERED: FLUOXETINE HCL 20 MG CAPSULE PO SCH (10:00)
[2017-05-22] MEDS ORDERED: DAPTOMYCIN 700 MG in NORMAL SALINE 50 ML IV SCH (10:00)
[2017-05-22 12:28] VITALS: BP 150/111
--- NOTE | 2017-05-22 16:44 | DISCHARGE SUMMARY E ---
Discharge Summary NAME: MILADYS LONDON : 1970 AGE: 46Y ADMITTED: 05/21/2017 DISCHARGED: 05/22/2017 CODE STATUS: FULL CODE. PRIMARY CARE PROVIDER: Alyssa Wray DISCHARGE DIAGNOSES: 1. Uncontrolled diabetes mellitus type 1 on type 2 secondary to admitted noncompliance. 2. Hyperkalemia secondary to #1 which resolved with hydration. 3. Xzrgj-qi-iqvlexb kidney disease stage II-III. Creatinine is back to baseline. 4. Osteomyelitis of the left foot. 5. Anemia of chronic disease. 6. Opiate dependency continuous. 7. Benzodiazepine dependency continuous. 8. Tobacco dependency continuous. 9. Cocaine abuse. 10. Human immunodeficiency virus. DISCHARGE MEDICATIONS: 1. Daptomycin to complete the patient's previous medication of 700 mg IV daily. 2. Percocet 5/325 one to two tablets p.o. q.6 hours p.r.n. 3. Prevacid 30 mg p.o. daily. 4. DuoNeb 1 neb q.6 hours p.r.n. 5. Humalog 20 units subcutaneous before meals. 6. Lantus 85 units subcutaneous nightly. 7. Hydralazine 25 mg p.o. t.i.d. 8. Colace 100 mg p.o. daily. 9. Atenolol 50 mg p.o. daily. 10. Abilify 20 mg p.o. daily. 11. Tylenol 650 mg p.o. q.4 hours p.r.n. 12. Ambien 15 mg p.o. nightly. 13. Zocor 20 mg p.o. nightly. 14. Neurontin 400 mg p.o. b.i.d. 15. Prozac 40 mg p.o. daily. 16. Odefsey 1 tablet p.o. daily. 17. Flexeril 10 mg p.o. t.i.d. p.r.n. 18. Catapres 0.1 mg p.o. every 12 hours. 19. Amitriptyline 25 mg p.o. daily. DIAGNOSTICS: Lab values are as follows: Hematology obtained on 05/22/2017: WBCs are 4.4, hemoglobin is 10.8, hematocrit is 33.8, platelet count is 319,000. Coagulation obtained on 05/21/2017: PT is 12.9. INR is 0.91. Venous blood gas obtained on 05/21/2017: The pH is 7.34, pCO2 is 48.4, bicarb is 25.5. Chemistry obtained o 05/22/2017: Sodium is 139, potassium 4.9, chloride is 105, carbon dioxide 27, BUN 29, creatinine is 1.28, glucose 236, calcium is 9.4, magnesium is 2.0. Toxicology obtained on 05/21/2017 is positive for opiates, benzodiazepines, and cocaine. Blood cultures obtained on 05/21/2017 reveal no growth. Urine culture obtained on 05/21/2017 reveals no growth. PHYSICAL EXAMINATION: GENERAL: On examination, the patient is a well-developed, obese, 46-year-old -Spanish male who is awake, alert, and oriented to person, place, time, and situation. He is verbal, conversational, and does not appear to be in acute distress. VITAL SIGNS: Temperature 98.4, pulse 81, respirations 16, blood pressure 139/81, oxygen saturation is 100% on room air. SKIN: Warm and dry. No rash. Not diaphoretic. HEENT: Pupils equal, round, reactive to light and accommodation. Conjunctivae are pink. No JVP. CARDIOVASCULAR: Heart is regular with no murmur or rub. CHEST: Clear, symmetrical, unlabored. ABDOMEN: Soft, nontender, nondistended. BACK: No CVA tenderness or sacral edema. EXTREMITIES: No clubbing, cyanosis, or edema. PSYCHIATRIC: Appropriate affect. Pleasant mood. HISTORY OF PRESENT ILLNESS: The patient is a 46-year-old -Spanish male with a past medical history of HIV and osteomyelitis who is on chronic IV antibiotics. The patient presented to the emergency department with the chief complaint of lethargy. The patient stated that he had not taken his insulin in a number of days because he had not been feeling that well. The patient went to the Wound Clinic today for evaluation and was found to have a blood sugar of 415. Upon arrival to the emergency department, the patient was difficult to awake. He was noted to be afebrile. He was not tachypneic, normotensive, or hypoxic. Blood gas was done and showed a pCo2 of 48; however, on chemistry panel the patient's potassium was found to be 6.5, creatinine 1.9, glucose of 322 and no evidence of acidosis. Patient's white count was 6.2. The patient's EKG did reveal some peaked T waves and the patient was referred to the hospitalist for admission and management. HOSPITAL COURSE: The patient was admitted to [facility]. The patient was initially treated with Narcan with minimal response, however, the patient had an excellent response to Romazicon. The patient was awake and alert. The patient was aggressively hydrated and the patient's potassium came down nicely to 4.9. The patient's blood sugars are much better in double digits and the patient is able to eat and had no evidence of sepsis. All his cultures are negative. The PICC line was replaced since it had been partially coming out of the patient. The patient is ready for discharge. DISCHARGE PLANNING: The patient is to followup with the Wound Care Clinic as already scheduled. Time spent on this followup including assessment, plan, physical examination, and patient education is 25 minutes. DICTATING PHYSICIAN: DELANEY LAUREANO NP [id number] PHY#: [id number] ID: [id number] JOB#: [id number] ACCT: [id number] cc:DEVIN MEDINA M.D., MICHAEL NP >
[2017-05-22] MEDS ORDERED: INSULIN GLARGINE,HUM.REC.ANLOG 1,000 UNIT/10 ML UNIT SUBCUT SCH (22:00)
== END 2017-05-22 12:55 | disposition home or self-care (01) | DRG 637 ==
LOC: ER 10:57 → EH 13:55 → UNDOADMIN 14:01 → 3N 16:58
PROVIDERS: ADMIT Internal Medicine; ATTEND Internal Medicine
PROC: 02PY33Z Removal of Infusion Device from Great Vessel, Percutaneous Approach (ICD-10-PCS; principal; 2017-05-21)
PROC: 02HV33Z Insertion of Infusion Device into Superior Vena Cava, Percutaneous Approach (ICD-10-PCS; 2017-05-21)
PROC: B5181ZA Fluoroscopy of Superior Vena Cava using Low Osmolar Contrast, Guidance (ICD-10-PCS; 2017-05-21)
DX: E11.65 Type 2 diabetes mellitus with hyperglycemia (principal); B20 Human immunodeficiency virus [HIV] disease; G92 Toxic encephalopathy; N17.9 Acute kidney failure, unspecified; M86.272 Subacute osteomyelitis, left ankle and foot; E87.5 Hyperkalemia; E11.69 Type 2 diabetes mellitus with other specified complication; I12.9 Hypertensive chronic kidney disease with stage 1 through stage 4 chronic kidney disease, or unspecified chronic kidney disease; E11.22 Type 2 diabetes mellitus with diabetic chronic kidney disease; N18.3 Chronic kidney disease, stage 3 (moderate); E11.51 Type 2 diabetes mellitus with diabetic peripheral angiopathy without gangrene; I73.9 Peripheral vascular disease, unspecified; F43.10 Post-traumatic stress disorder, unspecified; F31.9 Bipolar disorder, unspecified; Z91.19 Patient's noncompliance with other medical treatment and regimen; E66.01 Morbid (severe) obesity due to excess calories; D63.8 Anemia in other chronic diseases classified elsewhere; Z68.37 Body mass index [BMI] 37.0-37.9, adult; E78.5 Hyperlipidemia, unspecified; I25.2 Old myocardial infarction; J45.909 Unspecified asthma, uncomplicated; J44.9 Chronic obstructive pulmonary disease, unspecified; F14.10 Cocaine abuse, uncomplicated; F17.200 Nicotine dependence, unspecified, uncomplicated; F12.90 Cannabis use, unspecified, uncomplicated; I25.10 Atherosclerotic heart disease of native coronary artery without angina pectoris; Z79.891 Long term (current) use of opiate analgesic; Z79.2 Long term (current) use of antibiotics; Z86.711 Personal history of pulmonary embolism; Z83.3 Family history of diabetes mellitus; Z82.49 Family history of ischemic heart disease and other diseases of the circulatory system; Z79.899 Other long term (current) drug therapy; Z79.4 Long term (current) use of insulin; Z89.422 Acquired absence of other left toe(s); Z96.651 Presence of right artificial knee joint; Z89.421 Acquired absence of other right toe(s); Z86.14 Personal history of Methicillin resistant Staphylococcus aureus infection
CPT/HCPCS: 11042; 29445; 36415; 36569; 71010; 77001; 80048; 80053; 80307; 81001; 82803; 82962; 83605; 83735; 85025; 85027; 85610; 87040; 87086; 93005; 93010; 94640; 96374; 99291; J0610; J0878; J1642; J1644; J1815; J3490; J7030

== ENCOUNTER → 2017-05-25 | Outpatient (CLI) | payer MEDICARE, MEDICAID ==
[2017-05-25 10:36] LABS: HEMOGLOBIN 11.6 g/dL (13.5-17.0); HGB HCT DIFFERENCE -1.2; MEAN CORPUSCULAR HEMOGLOBIN 27.8 pg (27.0-33.4); MEAN CORPUSCULAR HGB CONC 32.3 g/dL (32.0-36.0); MEAN CORPUSCULAR VOLUME 86 fl (80-97); RED BLOOD COUNT 4.18 10^6/uL (4.35-5.55); RED CELL DISTRIBUTION WIDTH 14.5 % (11.5-14.0); WHITE BLOOD COUNT 5.5 10^3/uL (4.0-10.5)
[2017-05-25 10:41] LABS: APPEARANCE,URINE CLEAR; BILIRUBIN,URINE NEGATIVE (NEGATIVE); GLUCOSE, URINE >=500 mg/dL (NEGATIVE); KETONES,URINE NEGATIVE (NEGATIVE); LEUKOCYTE ESTERASE,URINE NEGATIVE (NEGATIVE); NITRITE,URINE NEGATIVE (NEGATIVE); PROTEIN,URINE 100 mg/dL (NEGATIVE); URINE SPECIFIC GRAVITY 1.014; UROBILINOGEN,URINE NEGATIVE mg/dL (<2.0)
[2017-05-25 10:51] LABS: URINE PROTEIN 110.6 mg/dL (<12)
[2017-05-25 11:07] LABS: URINE CREATININE 88.9 mg/dL (22-328)
[2017-05-25 11:08] LABS: ANION GAP 12 (5-19); BLOOD UREA NITROGEN 26 mg/dL (7-20); CALCIUM 9.9 mg/dL (8.4-10.2); CARBON DIOXIDE 26 mmol/L (22-30); CHLORIDE 99 mmol/L (98-107); CREATININE RESULT 1.55 mg/dL (0.52-1.25); GLUCOSE 336 mg/dL (75-110); SODIUM 136.8 mmol/L (137-145)
[2017-05-25 13:40] LABS: POTASSIUM 6.8 mmol/L (3.6-5.0)
[2017-05-27 16:39] LABS: A/G RATIO 0.9 (0.7-1.7); ALBUMIN 2 3.9 g/dL (2.9-4.4); ALPHA-1-GLOBULIN 2 0.2 g/dL (0.0-0.4); GAMMA GLOBULIN 1.8 g/dL (0.4-1.8); PROTEIN TOTAL SERUM 8.4 g/dL (6.0-8.5)
== END ==
LOC: OD 09:51
PROVIDERS: ATTEND Internal Medicine Nephrology
DX: I12.9 Hypertensive chronic kidney disease with stage 1 through stage 4 chronic kidney disease, or unspecified chronic kidney disease (principal); N18.3 Chronic kidney disease, stage 3 (moderate); E87.5 Hyperkalemia; D64.9 Anemia, unspecified
CPT/HCPCS: 36415; 80048; 81001; 82570; 82728; 83540; 83550; 84156; 84165; 84443; 85027

== ENCOUNTER 2017-05-26 10:30 | Emergency (ER) | payer MEDICARE, MEDICAID ==
--- NOTE | 2017-05-26 10:43 | ER Document Report ---
ED Medical Screen (RME) - General Chief Complaint: Other Stated Complaint: IV IS COMING OUT Time Seen by Provider: 05/26/17 10:38 Notes: 46-year-old male who states he got a PICC line placed last after he was admitted overnight for high blood pressure with recent bilateral foot toe amputations. Patient was sent from the wound care last Thursday secondary to high blood pressure and the patient was kept overnight. He had a PICC line placed in his left arm at that time. Patient states he awoke because he feels a little pain in his PICC line site. He denies any redness, swelling, weakness or numbness to his arm, fevers or vomiting. On examination the patient has no redness, swelling, induration, discharge, or obvious tenderness to the left arm. Neurovascular intact distally. We will have the PICC line team come and assess the patient's PICC line. TRAVEL OUTSIDE OF THE [place] IN LAST 30 DAYS: No - Related Data Allergies/Adverse Reactions: Penicillins Allergy (Verified 05/26/17 10:33) rash Past Medical History - Social History Frequency of alcohol use: None Drug Abuse: Cocaine, Marijuana Family history: None - Past Medical History Cardiac Medical History: Reports: Hx Coronary Artery Disease, Hx Heart Attack, Hx Hypercholesterolemia, Hx Hypertension, Hx Peripheral Vascular Disease, Hx Pulmonary Embolism Pulmonary Medical History: Reports: Hx Asthma, Hx COPD, Hx Pneumonia - 1 year ago Neurological Medical History: Reports: Hx Seizures - 4 years ago; Depakote stopped by his physician. Endocrine Medical History: Reports: Hx Diabetes Mellitus Type 1, Hx Diabetes Mellitus Type 2 - IDDM Renal/ Medical History: Reports: Hx Renal Insufficiency. Denies: Hx Peritoneal Dialysis Malignancy Medical History: GI Medical History: Reports: Hx Hepatitis Musculoskeltal Medical History: Reports Hx Arthritis, Reports Hx Musculoskeletal Trauma Skin Medical History: Reports Hx MRSA Psychiatric Medical History: Reports: Hx Anxiety, Hx Bipolar Disorder, Hx Depression - & anxiety, Hx Post Traumatic Stress Disorder Traumatic Medical History: Reports: Hx Fractures - Knee pelvis and hand Infectious Medical History: Reports: Hx Hepatitis, Hx HIV - Patient reports no detectable viral count, Hx MRSA Past Surgical History: Reports: Hx Oral Surgery - Removal of most of teeth, Hx Orthopedic Surgery - right knee replacement, rt toe amputation; amputation 2 left toes., Other - Laser eye surgery - Immunizations Immunizations up to date: Yes Hx Diphtheria, Pertussis, Tetanus Vaccination: Yes Physical Exam - Vital signs Vitals: Temp Pulse Resp BP Pulse Ox 97.8 F 84 18 135/84 H 98 05/26/17 10:33 05/26/17 10:33 05/26/17 10:33 05/26/17 10:33 05/26/17 10:33 Course - Vital Signs Vital signs: Temp Pulse Resp BP Pulse Ox 97.8 F 84 18 135/84 H 98 05/26/17 10:33 05/26/17 10:33 05/26/17 10:33 05/26/17 10:33 05/26/17 10:33
--- NOTE | 2017-05-26 12:04 | RADIOLOGY REPORT (SQ) ---
EXAM DESCRIPTION: CHEST PA/LAT COMPLETED DATE/TIME: 05/26/2017 11:46 am REASON FOR STUDY: verify placement COMPARISON: CT chest 03/06/2016 Two-view chest 04/07/2017 PICC catheter placement 05/21/2017 EXAM PARAMETERS: NUMBER OF VIEWS: two views TECHNIQUE: Digital Frontal and Lateral radiographic views of the chest acquired. RADIATION DOSE: NA LIMITATIONS: none FINDINGS: LUNGS AND PLEURA: No opacities, masses or pneumothorax. No pleural effusion. MEDIASTINUM AND HILAR STRUCTURES: No masses or contour abnormalities. HEART AND VASCULAR STRUCTURES: Heart normal size. No evidence for failure. BONES: No acute findings. HARDWARE: The PICC catheter has been pulled back about 5 cm, with the tip in the left brachiocephalic vein. OTHER: No other significant finding. IMPRESSION: No acute infiltrates. The left PICC catheter has been pulled back about 5 cm since its placement, with the tip currently in the left brachiocephalic vein TECHNICAL DOCUMENTATION: JOB ID: [id number] [employer]- All Rights Reserved
--- NOTE | 2017-05-26 14:01 | RADIOLOGY REPORT (SQ) ---
EXAM DESCRIPTION: PICC LINE REPLACEMENT; FLUORO/CV PLACEMENT COMPLETED DATE/TIME: 05/26/2017 1:51 pm REASON FOR STUDY: replacement; PICC REPLACEMENT-LINE PULLED OUT SOME FLUOROSCOPY TIME: 22 seconds 1 digital fluoro image and 1 ultrasound image saved to PACS. TECHNIQUE: Fluoroscopic guided PICC replacement. LIMITATIONS: None. PROCEDURE: After written consent and assessment were obtained, the patient was brought into the fluo roscopy room and place supine on the table. The left arm an existing PICC was prepped and draped in a sterile fashion. The entry site was anesthetized with 3 mL of 1% lidocaine. A .018 guide wire was then inserted through the existing PICC and into the venous system. The old catheter was then remove d and a new catheter measuring 46 cm was advanced over the wire and into the venous system. The wire was then removed and the catheter was adhered to the patients arm with a stat lock. The catheter was then aspirated and flushed and a sterile bandage was placed over the access site. A fluoroscopic sp ot image was saved to PACS confirming the catheter tip within the superior vena cava. IMPRESSION: SUCCESSFUL OVER THE WIRE REPLACEMENT OF AN OLD PICC FOR A NEW ONE THAT IS 5 FR dual LUME N 46 CM PICC IN THE left ARM. COMMENT: Patient medication list reviewed: Yes- Quality ID# [id number]:Eligible professional attests to doc umenting in the medical record they obtained, updated, or reviewed the patient's current medications. . Quality ID 145: Final reports for procedures using fluoroscopy that document radiation exposure demetrius leyda, or exposure time and number of fluorographic images (if radiation exposure indices are not avail able) Quality ID #[id number]: The patient was prepped and draped using maximum sterile barrier technique including cap, mask, sterile gown, sterile gloves, a large sterile sheet, hand hygiene, and 2% Chlorhexidine fo r cutaneous antisepsis. When ultrasound is used, sterile ultrasound techniques are followed requiring sterile gel and sterile probes. TECHNICAL DOCUMENTATION: JOB ID: [id number] [employer]- All Rights Reserved COMPARISON: 04/27/2017 PICC catheter placement, 05/21/2017 PICC catheter exchange
--- NOTE | 2017-05-26 14:05 | ER Document Report ---
ED General - General Chief Complaint: Other Stated Complaint: IV IS COMING OUT Time Seen by Provider: 05/26/17 10:38 TRAVEL OUTSIDE OF THE [place] IN LAST 30 DAYS: No - HPI Patient complains to provider of: PICC line Notes: Patient has a PICC line due to chronic antibiotics. Patient states that the PICC line has pulled out requesting for further evaluation. No signs of infection no fevers no chills - Related Data Allergies/Adverse Reactions: Penicillins Allergy (Verified 05/26/17 10:33) rash Past Medical History - Social History Smoking Status: Current Some Day Smoker Frequency of alcohol use: None Drug Abuse: Cocaine, Marijuana Family History: Reviewed & Not Pertinent, CAD, COPD, DM, Hyperlipidemia, Hypertension Patient has suicidal ideation: No Patient has homicidal ideation: No - Past Medical History Cardiac Medical History: Reports: Hx Coronary Artery Disease, Hx Heart Attack, Hx Hypercholesterolemia, Hx Hypertension, Hx Peripheral Vascular Disease, Hx Pulmonary Embolism Pulmonary Medical History: Reports: Hx Asthma, Hx COPD, Hx Pneumonia - 1 year ago Neurological Medical History: Reports: Hx Seizures - 4 years ago; Depakote stopped by his physician. Endocrine Medical History: Reports: Hx Diabetes Mellitus Type 1, Hx Diabetes Mellitus Type 2 - IDDM Renal/ Medical History: Reports: Hx Renal Insufficiency. Denies: Hx Peritoneal Dialysis Malignancy Medical History: GI Medical History: Reports: Hx Hepatitis Musculoskeltal Medical History: Reports Hx Arthritis, Reports Hx Musculoskeletal Trauma Skin Medical History: Reports Hx MRSA Psychiatric Medical History: Reports: Hx Anxiety, Hx Bipolar Disorder, Hx Depression - & anxiety, Hx Post Traumatic Stress Disorder Traumatic Medical History: Reports: Hx Fractures - Knee pelvis and hand Infectious Medical History: Reports: Hx Hepatitis, Hx HIV - Patient reports no detectable viral count, Hx MRSA Past Surgical History: Reports: Hx Oral Surgery - Removal of most of teeth, Hx Orthopedic Surgery - right knee replacement, rt toe amputation; amputation 2 left toes., Other - Laser eye surgery - Immunizations Immunizations up to date: Yes Hx Diphtheria, Pertussis, Tetanus Vaccination: Yes Hx Pneumococcal Vaccination: 11/09/13 Review of Systems - Review of Systems Constitutional: Other - PICC line eval EENT: No symptoms reported Cardiovascular: No symptoms reported Respiratory: No symptoms reported Gastrointestinal: No symptoms reported Genitourinary: No symptoms reported Male Genitourinary: No symptoms reported Musculoskeletal: No symptoms reported Skin: No symptoms reported Hematologic/Lymphatic: No symptoms reported Neurological/Psychological: No symptoms reported -: Yes All other systems reviewed and negative Physical Exam - Vital signs Vitals: Temp Pulse Resp BP Pulse Ox 97.8 F 84 18 135/84 H 98 05/26/17 10:33 05/26/17 10:33 05/26/17 10:33 05/26/17 10:33 05/26/17 10:33 Interpretation: Normal - General General appearance: Appears well, Alert - HEENT Head: Normocephalic, Atraumatic Eyes: Normal Pupils: PERRL - Respiratory Respiratory status: No respiratory distress Chest status: Nontender Breath sounds: Normal Chest palpation: Normal - Cardiovascular Rhythm: Regular Heart sounds: Normal auscultation Murmur: No - Abdominal Inspection: Normal Distension: No distension Bowel sounds: Normal Tenderness: Nontender Organomegaly: No organomegaly - Back Back: Normal, Nontender - Extremities General upper extremity: Normal inspection - Patient with PICC line pain in the left upper extremity no signs of infection, Nontender, Normal color, Normal ROM , Normal temperature General lower extremity: Normal inspection, Nontender, Normal color, Normal ROM , Normal temperature, Normal weight bearing. No: Nikolay's sign - Neurological Neuro grossly intact: Yes Cognition: Normal Orientation: AAOx4 Noemy Coma Scale Eye Opening: Spontaneous Cassandra Coma Scale Verbal: Oriented Noemy Coma Scale Motor: Obeys Commands Noemy Coma Scale Total: 15 Speech: Normal Motor strength normal: LUE, RUE, LLE, RLE Sensory: Normal - Psychological Associated symptoms: Normal affect, Normal mood - Skin Skin Temperature: Warm Skin Moisture: Dry Skin Color: Normal Course - Re-evaluation Re-evalutation: 05/26/17 15:18 PICC line was placed by radiating neurology team discharged home - Vital Signs Vital signs: Temp Pulse Resp BP Pulse Ox 98.0 F 66 20 149/96 H 100 05/26/17 14:09 05/26/17 14:09 05/26/17 14:09 05/26/17 14:09 05/26/17 14:09 Discharge - Discharge Clinical Impression: PICC line replacement Condition: Good Disposition: HOME, SELF-CARE Additional Instructions: Continue your PICC line medications as prescribed. Return to the ER symptoms worsen.
[2017-05-26 14:46] VITALS: BP 149/96
--- NOTE | 2017-06-03 17:40 | EKG REPORT ---
SEVERITY:- NORMAL ECG - SINUS RHYTHM : Confirmed by: Savannah Dodson MD 03-Jun-2017 17:39:55
== END 2017-05-26 14:09 | disposition home or self-care (01) ==
LOC: ER 10:30
DX: Z45.2 Encounter for adjustment and management of vascular access device (principal); Z79.2 Long term (current) use of antibiotics; E11.51 Type 2 diabetes mellitus with diabetic peripheral angiopathy without gangrene; I25.10 Atherosclerotic heart disease of native coronary artery without angina pectoris; I25.2 Old myocardial infarction; I10 Essential (primary) hypertension; J44.9 Chronic obstructive pulmonary disease, unspecified; F17.200 Nicotine dependence, unspecified, uncomplicated; Z86.14 Personal history of Methicillin resistant Staphylococcus aureus infection; Z88.0 Allergy status to penicillin; Z21 Asymptomatic human immunodeficiency virus [HIV] infection status
CPT/HCPCS: 99283; 71020; 36584; 77001; C1769; J1642; 93010

== ENCOUNTER 2017-05-27 10:51 | Inpatient (IN) | payer MEDICARE, MEDICAID ==
--- NOTE | 2017-05-27 11:08 | ER Document Report ---
ED Medical Screen (RME) - General Chief Complaint: Abnormal Lab Results Stated Complaint: ABNORMAL LABS Time Seen by Provider: 05/27/17 11:03 Notes: 38-year-old male who arrives after being told by his family doctor to come to the emergency department. He states that he had some blood drawn at his doctor' s office 2 days ago. They called today and told him that his potassium was "high". He states that he has been feeling weak. He also states that he has been having some chronic foot pain. He states he recently had toes amputated and is on antibiotics at home. He states he does not know the name of the antibiotic. Patient has had some nausea but no vomiting. No fevers. He states he has not appreciated any change in his urinary habits. He does see a oceanology teacher but at this time he is not on dialysis. TRAVEL OUTSIDE OF THE [place] IN LAST 30 DAYS: No - Related Data Allergies/Adverse Reactions: Penicillins Allergy (Verified 05/26/17 10:33) rash Past Medical History - Social History Family history: None - Past Medical History Cardiac Medical History: Reports: Hx Coronary Artery Disease, Hx Heart Attack, Hx Hypercholesterolemia, Hx Hypertension, Hx Peripheral Vascular Disease, Hx Pulmonary Embolism Pulmonary Medical History: Reports: Hx Asthma, Hx COPD, Hx Pneumonia - 1 year ago Neurological Medical History: Reports: Hx Seizures - 4 years ago; Depakote stopped by his physician. Endocrine Medical History: Reports: Hx Diabetes Mellitus Type 1, Hx Diabetes Mellitus Type 2 - IDDM Renal/ Medical History: Reports: Hx Renal Insufficiency. Denies: Hx Peritoneal Dialysis Malignancy Medical History: GI Medical History: Reports: Hx Hepatitis Musculoskeltal Medical History: Reports Hx Arthritis, Reports Hx Musculoskeletal Trauma Skin Medical History: Reports Hx MRSA Psychiatric Medical History: Reports: Hx Anxiety, Hx Bipolar Disorder, Hx Depression - & anxiety, Hx Post Traumatic Stress Disorder Traumatic Medical History: Reports: Hx Fractures - Knee pelvis and hand Infectious Medical History: Reports: Hx Hepatitis, Hx HIV - Patient reports no detectable viral count, Hx MRSA Past Surgical History: Reports: Hx Oral Surgery - Removal of most of teeth, Hx Orthopedic Surgery - right knee replacement, rt toe amputation; amputation 2 left toes., Other - Laser eye surgery - Immunizations Immunizations up to date: Yes Hx Diphtheria, Pertussis, Tetanus Vaccination: Yes Physical Exam - Vital signs Vitals: Temp Pulse Resp BP Pulse Ox 98.2 F 78 12 135/87 H 97 05/27/17 10:54 05/27/17 10:54 05/27/17 10:54 05/27/17 10:54 05/27/17 10:54 Course - Vital Signs Vital signs: Temp Pulse Resp BP Pulse Ox 98.2 F 78 12 135/87 H 97 05/27/17 10:54 05/27/17 10:54 05/27/17 10:54 05/27/17 10:54 05/27/17 10:54
[2017-05-27 11:26] LABS: APPEARANCE,URINE CLEAR; BILIRUBIN,URINE NEGATIVE (NEGATIVE); GLUCOSE, URINE >=500 mg/dL (NEGATIVE); KETONES,URINE NEGATIVE (NEGATIVE); LEUKOCYTE ESTERASE,URINE NEGATIVE (NEGATIVE); NITRITE,URINE NEGATIVE (NEGATIVE); PROTEIN,URINE 30 mg/dL (NEGATIVE); URINE SPECIFIC GRAVITY 1.018; UROBILINOGEN,URINE NEGATIVE mg/dL (<2.0)
[2017-05-27 11:58] LABS: ABSOLUTE BASOPHILS # (AUTO) 0.1 10^3/uL (0.0-0.2); ABSOLUTE EOSINOPHILS # (AUTO) 0.2 10^3/uL (0.0-0.6); ABSOLUTE MONOCYTES (AUTO) 0.7 10^3/uL (0.1-1.4); ABSOLUTE NEUT (AUTO) 4.1 10^3/uL (1.7-8.2); BASOPHILS % (AUTO) 1.3 % (0-2); HEMOGLOBIN 10.9 g/dL (13.5-17.0); HGB HCT DIFFERENCE -1.3; LYMPHOCYTES % (AUTO) 17.2 % (13-45); MEAN CORPUSCULAR HEMOGLOBIN 27.6 pg (27.0-33.4); MEAN CORPUSCULAR VOLUME 86 fl (80-97); MONOCYTES % (AUTO) 11.3 % (3-13); RED BLOOD COUNT 3.94 10^6/uL (4.35-5.55); RED CELL DISTRIBUTION WIDTH 14.5 % (11.5-14.0); SEGMENTED NEUTROPHILS % (AUTO) 67.2 % (42-78); WHITE BLOOD COUNT 6.1 10^3/uL (4.0-10.5)
[2017-05-27 12:19] LABS: ALANINE AMINOTRANSFERASE 33 U/L (21-72); ALBUMIN 4.2 g/dL (3.5-5.0); ALKALINE PHOSPHATASE 133 U/L (38-126); ANION GAP 14 (5-19); ASPARTATE AMINO TRANSFERASE 21 U/L (17-59); BILIRUBIN,DIRECT 0.5 mg/dL (0.0-0.4); BILIRUBIN,TOTAL 0.5 mg/dL (0.2-1.3); BLOOD UREA NITROGEN 37 mg/dL (7-20); CALCIUM 9.2 mg/dL (8.4-10.2); CARBON DIOXIDE 21 mmol/L (22-30); CHLORIDE 100 mmol/L (98-107); CREATININE RESULT 2.25 mg/dL (0.52-1.25); SODIUM 134.8 mmol/L (137-145); TOTAL PROTEIN 8.3 g/dL (6.3-8.2)
[2017-05-27 12:42] LABS: GLUCOSE 448 mg/dL (75-110)
[2017-05-27 12:43] LABS: POTASSIUM 6.5 mmol/L (3.6-5.0)
[2017-05-27] MEDS ORDERED: DEXTROSE 50%-WATER 25 GM/50 ML DISP.SYRIN IV ONE (12:46)
[2017-05-27] MEDS ORDERED: CALCIUM GLUCONATE 1000 MG/10 ML INJ IV ONE (12:46)
[2017-05-27] MEDS ORDERED: NORMAL SALINE 1000 ML 1,000 ML IV ONE (12:46)
[2017-05-27] MEDS ORDERED: INSULIN REG, HUMAN 100 UNIT/ML 3 ML VIAL (PYX) IV ONE (12:46)
[2017-05-27] MEDS ORDERED: ONDANSETRON HCL INJ/PF 4 MG/2 ML SDV IV PRN (14:18)
[2017-05-27] MEDS ORDERED: OXYCODONE-ACETAMINOPHEN 5-325 MG TABLET PO PRN (14:18)
[2017-05-27] MEDS ORDERED: IPRATROPIUM/ALBUTEROL 0.5-2.5 MG/3 ML AMPUL NEB PRN (14:18)
[2017-05-27] MEDS ORDERED: INSULIN LISPRO 100 UNIT/ML 3 ML VIAL SUBCUT PRN (14:28)
[2017-05-27] MEDS ORDERED: GLUCAGON,HUMAN RECOMB 1 MG INJ IM PRN (14:28)
[2017-05-27] MEDS ORDERED: DEXTROSE 50%-WATER 25 GM/50 ML DISP.SYRIN IV PRN ×2 (14:28)
[2017-05-27] MEDS ORDERED: DEXTROSE 40% GEL 15 GM TUBE PO PRN ×2 (14:28)
[2017-05-27] MEDS ORDERED: HYDRALAZINE HCL INJ/PF 20 MG/1 ML SDV IV PRN (14:30)
[2017-05-27] MEDS ORDERED: SODIUM POLYSTYRENE SULFONATE 15 GM/60 ML PO ONE ×2 (14:33→23:30)
[2017-05-27] MEDS ORDERED: CLONIDINE HCL 0.1 MG TABLET PO ONE (14:35)
[2017-05-27] MEDS: NORMAL SALINE 1000 ML 1,000 ML IV PRN (14:44)
[2017-05-27] MEDS ORDERED: PHARMACY COMMUNICATION ORDER MC NR ×2 (14:45)
--- NOTE | 2017-05-27 14:48 | ER Document Report ---
ED General - General Chief Complaint: Abnormal Lab Results Stated Complaint: ABNORMAL LABS Time Seen by Provider: 05/27/17 11:03 TRAVEL OUTSIDE OF THE [place] IN LAST 30 DAYS: No - HPI Patient complains to provider of: Abnormal laboratory values Notes: Patient was seen yesterday for adjustment of his PICC line. Patient is coming in today patient laboratory values showing potassium of 6.8. 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 Denies fevers chills nausea vomiting diarrhea. - Related Data Allergies/Adverse Reactions: Penicillins Allergy (Verified 05/26/17 10:33) rash Past Medical History - Social History Smoking Status: Never Smoker Chew tobacco use (# tins/day): No Frequency of alcohol use: None Drug Abuse: None Family History: Reviewed & Not Pertinent, CAD, COPD, DM, Hyperlipidemia, Hypertension Patient has suicidal ideation: No Patient has homicidal ideation: No - Past Medical History Cardiac Medical History: Reports: Hx Coronary Artery Disease, Hx Heart Attack, Hx Hypercholesterolemia, Hx Hypertension, Hx Peripheral Vascular Disease, Hx Pulmonary Embolism Pulmonary Medical History: Reports: Hx Asthma, Hx COPD, Hx Pneumonia - 1 year ago Neurological Medical History: Reports: Hx Seizures - 4 years ago; Depakote stopped by his physician. Endocrine Medical History: Reports: Hx Diabetes Mellitus Type 1, Hx Diabetes Mellitus Type 2 - IDDM Renal/ Medical History: Reports: Hx Renal Insufficiency. Denies: Hx Peritoneal Dialysis Malignancy Medical History: GI Medical History: Reports: Hx Hepatitis Musculoskeltal Medical History: Reports Hx Arthritis, Reports Hx Musculoskeletal Trauma Skin Medical History: Reports Hx MRSA Psychiatric Medical History: Reports: Hx Anxiety, Hx Bipolar Disorder, Hx Depression - & anxiety, Hx Post Traumatic Stress Disorder Traumatic Medical History: Reports: Hx Fractures - Knee pelvis and hand Infectious Medical History: Reports: Hx Hepatitis, Hx HIV - Patient reports no detectable viral count, Hx MRSA Past Surgical History: Reports: Hx Oral Surgery - Removal of most of teeth, Hx Orthopedic Surgery - right knee replacement, rt toe amputation; amputation 2 left toes., Other - Laser eye surgery - Immunizations Immunizations up to date: Yes Hx Diphtheria, Pertussis, Tetanus Vaccination: Yes Hx Pneumococcal Vaccination: 11/09/13 Review of Systems - Review of Systems Constitutional: Other - Laboratory abnormalities EENT: No symptoms reported Cardiovascular: No symptoms reported Respiratory: No symptoms reported Gastrointestinal: No symptoms reported Genitourinary: No symptoms reported Male Genitourinary: No symptoms reported Musculoskeletal: No symptoms reported Skin: No symptoms reported Hematologic/Lymphatic: No symptoms reported Neurological/Psychological: No symptoms reported -: Yes All other systems reviewed and negative Physical Exam - Vital signs Vitals: Temp Pulse Resp BP Pulse Ox 98.2 F 78 12 135/87 H 97 05/27/17 10:54 05/27/17 10:54 05/27/17 10:54 05/27/17 10:54 05/27/17 10:54 Interpretation: Normal - General General appearance: Appears well, Alert - HEENT Head: Normocephalic, Atraumatic Eyes: Normal Pupils: PERRL - Respiratory Respiratory status: No respiratory distress Chest status: Nontender Breath sounds: Normal Chest palpation: Normal - Cardiovascular Rhythm: Regular Heart sounds: Normal auscultation Murmur: No - Abdominal Inspection: Normal Distension: No distension Bowel sounds: Normal Tenderness: Nontender Organomegaly: No organomegaly - Back Back: Normal, Nontender - Extremities General upper extremity: Normal inspection, Nontender, Normal color, Normal ROM , Normal temperature, Other - PICC line in place with no signs of infection General lower extremity: Nontender, Normal color, Normal ROM, Normal temperature , Normal weight bearing. No: Normal inspection - Bilateral toe amputations, Nikolay's sign - Neurological Neuro grossly intact: Yes Cognition: Normal Orientation: AAOx4 Noemy Coma Scale Eye Opening: Spontaneous [place] Coma Scale Verbal: Oriented Noemy Coma Scale Motor: Obeys Commands Noemy Coma Scale Total: 15 Speech: Normal Motor strength normal: LUE, RUE, LLE, RLE Sensory: Normal - Psychological Associated symptoms: Normal affect, Normal mood - Skin Skin Temperature: Warm Skin Moisture: Dry Skin Color: Normal Course - Re-evaluation Re-evalutation: 05/27/17 14:48 Patient with hyperglycemia and hyperkalemia treatment was started with calcium IV insulin and dextrose. Hospitalist request 30 g of Kayexalate. No other acute pathology patient will be admitted for treatment of the hyperkalemia. - Vital Signs Vital signs: Temp Pulse Resp BP Pulse Ox 98.2 F 78 21 H 138/100 H 99 05/27/17 10:54 05/27/17 10:54 05/27/17 14:36 05/27/17 14:36 05/27/17 14:36 - Laboratory Result Diagrams: 05/27/17 11:43 05/27/17 11:43 Laboratory results interpreted by me: 05/27/17 05/27/17 05/27/17 11:15 11:43 11:43 RBC 3.94 L Hgb 10.9 L Hct 34.0 L RDW 14.5 H Sodium 134.8 L Potassium 6.5 H* Carbon Dioxide 21 L BUN 37 H Creatinine 2.25 H Est GFR ( Amer) 38 L Est GFR (Non-Af Amer) 31 L Glucose 448 H* POC Glucose Direct Bilirubin 0.5 H Alkaline Phosphatase 133 H Total Protein 8.3 H Urine Protein 30 H Urine Glucose (UA) >=500 H 05/27/17 05/27/17 13:03 13:51 RBC Hgb Hct RDW Sodium Potassium Carbon Dioxide BUN Creatinine Est GFR ( Amer) Est GFR (Non-Af Amer) Glucose POC Glucose 358 H 257 H Direct Bilirubin Alkaline Phosphatase Total Protein Urine Protein Urine Glucose (UA) Critical Care Note - Critical Care Note Total time excluding time spent on procedures (mins): 35 Comments: Multiple evaluations due to lab abnormalities.
--- NOTE | 2017-05-27 15:33 | PDOC H&P ---
History of Present Illness Admission Date/PCP: ANDREIA LÓPEZ MD History of Present Illness: MILADYS LONDON III is a 46 year old male with a history of HIV, DM I, HTN, osteomyelitis, cocaine abuse, opiate and benzodiazepine dependency who presents to the emergency department for follow up on laboratory studies. Patient was recently admitted here to on from [facility] on 05/21/2017 to 05/22/17 for a similar condition with hyperkalemia and dehydration. I have reviewed this H& P and discharge summary. Patient reports no changes in his medications. He does report the use of cocaine on Thursday. He reports that he has not been checking his sugar, but he has been taking his insulin. Patient reports pain in his foot. He reports some liquid diarrhea yesterday. Without hematochezia or melena. He also describes to sweats and nausea with vomiting. He denies any overt fevers but did not take his temperature. Patient actually presented today to the emergency department as he was followed by nephrology for an elevated potassium. Repeat potassium here in the emergency department reveal 6.5 with peak T waves on EKG. Patient has received calcium gluconate, insulin, D50, and Kayexalate. He is referred to the hospital service for evaluation of hyperkalemia And acute on chronic renal failure. Past Medical History Cardiac Medical History: Reports: Coronary Artery Disease, Myocardial Infarction , Hyperlipidema, Hypertension, Peripheral Vascular Disease, Pulmonary Embolism Pulmonary Medical History: Reports: Asthma, Chronic Obstructive Pulmonary Disease (COPD), Pneumonia - 1 year ago Neurological Medical History: Reports: Seizures - 4 years ago; Depakote stopped by his physician. Endocrine Medical History: Reports: Diabetes Mellitus Type 2 - IDDM Renal/ Medical History: Malignancy Medical History: GI Medical History: Reports: Hepatitis Musculoskeltal Medical History: Reports: Arthritis Psychiatric Medical History: Reports: Bipolar Disorder, Depression - & anxiety, Post Traumatic Stress Disorder Hematology: Reports: Anemia Infectious Medical History: Reports: HIV - Patient reports no detectable viral count, Methicillin-Resistant Staph Aureus Past Surgical History Past Surgical History: Reports: Orthopedic Surgery - right knee replacement, rt toe amputation; amputation 2 left toes., Other - Laser eye surgery Social History Smoking Status: Never Smoker Frequency of Alcohol Use: Occasional Hx Recreational Drug Use: Yes Drugs: Cocaine, Marijuana Hx Prescription Drug Abuse: Yes - Benzodiazepines, opiates - Advance Directive Resuscitation Status: Full Code Surrogate healthcare decision maker:: MotherFlavia Family History Family History: CAD, COPD, DM, Hyperlipidemia, Hypertension Parental Family History Reviewed: Yes Children Family History Reviewed: Yes Sibling(s) Family History Reviewed.: Yes Medication/Allergy Allergies/Adverse Reactions: Penicillins Allergy (Verified 05/26/17 10:33) rash Review of Systems Constitutional: PRESENT: chills, headache(s), night sweats. ABSENT: fever(s), weight gain, weight loss Eyes: ABSENT: visual disturbances Ears: ABSENT: hearing changes Cardiovascular: PRESENT: edema. ABSENT: chest pain, dyspnea on exertion, orthropnea, palpitations Respiratory: ABSENT: cough, hemoptysis Gastrointestinal: PRESENT: diarrhea, nausea, vomiting. ABSENT: abdominal pain, coffee ground emesis, constipation, hematemesis, hematochezia, melena Genitourinary: ABSENT: dysuria, hematuria Musculoskeletal: ABSENT: joint swelling Integumentary: PRESENT: wounds - Chronic right foot. ABSENT: rash Neurological: ABSENT: abnormal gait, abnormal speech, confusion, dizziness, focal weakness, syncope Psychiatric: ABSENT: anxiety, depression, homidical ideation, suicidal ideation Endocrine: ABSENT: cold intolerance, heat intolerance, polydipsia, polyuria Hematologic/Lymphatic: ABSENT: easy bleeding, easy bruising Physical Exam Vital Signs: Temp Pulse Resp BP Pulse Ox 98.2 F 78 21 H 138/100 H 99 05/27/17 10:54 05/27/17 10:54 05/27/17 14:36 05/27/17 14:36 05/27/17 14:36 Intake & Output 05/26/17 05/27/17 05/28/17 06:59 06:59 06:59 Weight 112.6 kg General appearance: PRESENT: mild distress, well-developed, well-nourished, other - Chronically ill-appearing Head exam: PRESENT: atraumatic, normocephalic Eye exam: PRESENT: conjunctiva pink, EOMI. ABSENT: PERRLA - Left pupil unreactive, chronic blindness secondary to diabetic retinopathy, scleral icterus Ear exam: PRESENT: normal external ear exam Mouth exam: PRESENT: dry mucosa, tongue midline Neck exam: ABSENT: JVD, lymphadenopathy, thyromegaly, tracheal deviation Respiratory exam: PRESENT: clear to auscultation vanessa. ABSENT: rales, rhonchi, wheezes Cardiovascular exam: PRESENT: RRR, +S1, +S2. ABSENT: diastolic murmur, rubs, systolic murmur Pulses: PRESENT: normal dorsalis pedis pul Vascular exam: PRESENT: normal capillary refill GI/Abdominal exam: PRESENT: normal bowel sounds, soft. ABSENT: distended, guarding, mass, organolmegaly, rebound, tenderness Rectal exam: PRESENT: deferred Extremities exam: PRESENT: full ROM. ABSENT: calf tenderness, clubbing, pedal edema Neurological exam: PRESENT: alert, awake, oriented to person, oriented to place , oriented to time, oriented to situation, CN II-XII grossly intact. ABSENT: motor sensory deficit Psychiatric exam: PRESENT: appropriate affect, normal mood. ABSENT: homicidal ideation, suicidal ideation Skin exam: PRESENT: dry, intact, warm. ABSENT: cyanosis, rash Results Laboratory Results: 05/27/17 11:43 05/27/17 11:43 05/27/17 05/27/17 05/27/17 11:15 11:43 11:43 WBC 6.1 RBC 3.94 L Hgb 10.9 L Hct 34.0 L MCV 86 MCH 27.6 MCHC 32.0 RDW 14.5 H Plt Count 304 Seg Neutrophils % 67.2 Lymphocytes % 17.2 Monocytes % 11.3 Eosinophils % 3.0 Basophils % 1.3 Absolute Neutrophils 4.1 Absolute Lymphocytes 1.0 Absolute Monocytes 0.7 Absolute Eosinophils 0.2 Absolute Basophils 0.1 Sodium 134.8 L Potassium 6.5 H* Chloride 100 Carbon Dioxide 21 L Anion Gap 14 BUN 37 H Creatinine 2.25 H Est GFR ( Amer) 38 L Est GFR (Non-Af Amer) 31 L Glucose 448 H* Calcium 9.2 Total Bilirubin 0.5 AST 21 ALT 33 Alkaline Phosphatase 133 H Total Protein 8.3 H Albumin 4.2 Urine Color YELLOW Urine Appearance CLEAR Urine pH 6.0 Ur Specific [place] 1.018 Urine Protein 30 H Urine Glucose (UA) >=500 H Urine Ketones NEGATIVE Urine Blood NEGATIVE Urine Nitrite NEGATIVE Ur Leukocyte Esterase NEGATIVE Urine WBC (Auto) 0 Urine RBC (Auto) 0 Assessment & Plan - Diagnosis (1) Acute hyperkalemia Is this a current diagnosis for this admission?: YesPlan: Examined patient's past history and it appears as though patient has presented with hyperkalemia no less than 20 times. Will obtain a cosyntropin stim test as I suspect due to patient's underlying HIV disease that he likely has adrenal insufficiency. Adrenal insufficiency may be hidden secondary to patient's chronic use of cocaine with subsequent hypertension as well as noncompliance/ nonadherence to his antihypertensive regimen resulting in hypertension. (2) Acute renal failure Qualifiers: Acute renal failure type: unspecified Qualified Code(s): N17.9 - Acute kidney failure, unspecified Is this a current diagnosis for this admission?: YesPlan: Secondary to dehydration. Will place on IV fluids. (3) Anxiety and depression Is this a current diagnosis for this admission?: Yes (4) Cellulitis of right lower extremity Is this a current diagnosis for this admission?: YesPlan: Continue patient on daptomycin. (5) Coronary artery disease Qualifiers: Coronary Disease-Associated Artery/Lesion type: [place] artery [place] vs. transplanted heart: [place] heart Associated angina: without angina Qualified Code(s): I25.10 - Atherosclerotic heart disease of [place] coronary artery without angina pectoris Is this a current diagnosis for this admission?: Yes (6) Diabetes Qualifiers: Diabetes mellitus type: type 2 Diabetes mellitus complication detail: with polyneuropathy Diabetes mellitus intermediate insulin use: with intermediate use Is this a current diagnosis for this admission?: YesPlan: Continue patient on Lantus and add sliding scale insulin. (7) Diabetic infection of left foot Is this a current diagnosis for this admission?: YesPlan: Also consult Dr. Worthy of the wound clinic for ongoing wound management for this patient. (8) HIV (human immunodeficiency virus infection) Is this a current diagnosis for this admission?: YesPlan: May continue his home HAART therapy. CD4 on 06/02/16--165 (9) Hyperglycemia due to type 2 diabetes mellitus Qualifiers: Diabetes mellitus intermediate insulin use: with intermediate use Qualified Code(s): E11.65 - Type 2 diabetes mellitus with hyperglycemia Is this a current diagnosis for this admission?: Yes (10) Hypertension Qualifiers: Hypertension type: essential hypertension Qualified Code(s): I10 - Essential (primary) hypertension Is this a current diagnosis for this admission?: YesPlan: Give a one time dose of clonidine Patient with hypertensive emergency with symptoms of organ dysfunction of headache, blurred vision. Patient normally on atenolol and will hold beta tuyet in light of recent cocaine use. (11) Normocytic anemia Is this a current diagnosis for this admission?: Yes (12) Peripheral vascular disease Is this a current diagnosis for this admission?: Yes (13) Bipolar disorder Qualifiers: Active/Remission status: remission status unspecified Qualified Code (s): F31.9 - Bipolar disorder, unspecified Is this a current diagnosis for this admission?: Yes (14) CKD (chronic kidney disease), stage III Is this a current diagnosis for this admission?: YesPlan: Consult nephrology (15) Cocaine abuse Is this a current diagnosis for this admission?: YesPlan: Encourage abstinence (16) History of pulmonary embolism Is this a current diagnosis for this admission?: Yes (17) Marijuana use Is this a current diagnosis for this admission?: Yes (18) PTSD (post-traumatic stress disorder) Is this a current diagnosis for this admission?: Yes - Time Time Spent: 50 to 70 Minutes Medications reviewed and adjusted accordingly: Yes Anticipated discharge: Home Within: within 48 hours - Inpatient Certification Based on my medical assessment, after consideration of the patient's comorbidities, presenting symptoms, or acuity I expect that the services needed warrant INPATIENT care.: Yes I certify that my determination is in accordance with my understanding of Medicare's requirements for reasonable and necessary INPATIENT services [42 CFR 412.3e].: Yes Medical Necessity: Need For IV Fluids, Need For Continuous Telemetry Monitoring Post Hospital Care: D/C Sociology Faculty Member Documentation
[2017-05-27 15:34] LABS: URINE BARBITURATES SCREEN NEGATIVE; URINE METHADONE SCREEN NEGATIVE; URINE OPIATES LOW NEGATIVE; URINE PHENCYCLIDINE SCREEN NEGATIVE
[2017-05-27] MEDS ORDERED: (PENDING PHARMACY ID) (Zolpidem Tartrate [Ambien] 10 MG) PO PRN (15:55)
[2017-05-27] MEDS ORDERED: DAPTOMYCIN 500 MG in NORMAL SALINE 50 ML IV ONE (16:00)
[2017-05-27] MEDS ORDERED: ALPRAZOLAM 0.5 MG TABLET PO PRN ×3 (17:05→19:37)
[2017-05-27] MEDS ORDERED: ZOLPIDEM TARTRATE 5 MG TABLET PO PRN (18:14)
[2017-05-27] MEDS: PREGABALIN 75 MG CAPSULE PO SCH (19:01)
[2017-05-27] MEDS ORDERED: INSULIN GLARGINE,HUM.REC.ANLOG 1,000 UNIT/10 ML UNIT SUBCUT SCH (22:00)
[2017-05-27] MEDS ORDERED: (PENDING PHARMACY ID) (Prazosin Hcl [Minipress] 1 MG) PO SCH (22:00)
[2017-05-27] MEDS: GABAPENTIN 400 MG CAPSULE PO SCH (22:17)
[2017-05-27] MEDS: CLONIDINE HCL 0.1 MG TABLET PO SCH (22:17)
[2017-05-27] MEDS: HEPARIN SOD (PORCINE) 5,000 UNIT/ML 1 ML SYRINGE SUBCUT SCH (22:18)
[2017-05-27] MEDS: HYDRALAZINE HCL 50 MG TABLET PO SCH (22:18)
[2017-05-27 22:52] LABS: ANION GAP 10 (5-19); BLOOD UREA NITROGEN 30 mg/dL (7-20); CALCIUM 8.1 mg/dL (8.4-10.2); CARBON DIOXIDE 23 mmol/L (22-30); CHLORIDE 101 mmol/L (98-107); CREATININE RESULT 1.58 mg/dL (0.52-1.25); GLUCOSE 369 mg/dL (75-110); SODIUM 133.8 mmol/L (137-145)
[2017-05-28] MEDS: NORMAL SALINE 1000 ML 1,000 ML IV PRN (02:24)
[2017-05-28] MEDS: HEPARIN SOD (PORCINE) 5,000 UNIT/ML 1 ML SYRINGE SUBCUT SCH (05:16)
[2017-05-28] MEDS: HYDRALAZINE HCL 50 MG TABLET PO SCH (05:16)
[2017-05-28] MEDS ORDERED: COSYNTROPIN INJ 0.25 MG VIAL IV PRN (06:00)
[2017-05-28 07:05] LABS: ANION GAP 12 (5-19); BLOOD UREA NITROGEN 25 mg/dL (7-20); CALCIUM 8.7 mg/dL (8.4-10.2); CARBON DIOXIDE 23 mmol/L (22-30); CHLORIDE 101 mmol/L (98-107); CREATININE RESULT 1.42 mg/dL (0.52-1.25); GLUCOSE 336 mg/dL (75-110); POTASSIUM 4.9 mmol/L (3.6-5.0); SODIUM 135.5 mmol/L (137-145)
[2017-05-28 07:10] LABS: ABSOLUTE BASOPHILS # (AUTO) 0.1 10^3/uL (0.0-0.2); ABSOLUTE EOSINOPHILS # (AUTO) 0.3 10^3/uL (0.0-0.6); ABSOLUTE LYMPHOCYTES (AUTO) 1.2 10^3/uL (0.5-4.7); ABSOLUTE MONOCYTES (AUTO) 0.6 10^3/uL (0.1-1.4); ABSOLUTE NEUT (AUTO) 2.1 10^3/uL (1.7-8.2); EOSINOPHILS % (AUTO) 5.9 % (0-6); HEMOGLOBIN 10.4 g/dL (13.5-17.0); HGB HCT DIFFERENCE -0.8; LYMPHOCYTES % (AUTO) 27.8 % (13-45); MEAN CORPUSCULAR HEMOGLOBIN 27.8 pg (27.0-33.4); MEAN CORPUSCULAR HGB CONC 32.4 g/dL (32.0-36.0); MEAN CORPUSCULAR VOLUME 86 fl (80-97); MONOCYTES % (AUTO) 14.3 % (3-13); RED BLOOD COUNT 3.73 10^6/uL (4.35-5.55); RED CELL DISTRIBUTION WIDTH 14.4 % (11.5-14.0); WHITE BLOOD COUNT 4.3 10^3/uL (4.0-10.5)
[2017-05-28] MEDS ORDERED: HYDROCORTISONE 10 MG TABLET PO SCH ×2 (08:00→22:00)
[2017-05-28 09:49] VITALS: BP 151/95
[2017-05-28] MEDS ORDERED: (PENDING PHARMACY ID) (Aripiprazole [Abilify] 20 MG) PO SCH (10:00)
[2017-05-28] MEDS ORDERED: DAPTOMYCIN 500 MG in NORMAL SALINE 50 ML IV SCH (10:00)
[2017-05-28] MEDS ORDERED: ERGOCALCIFEROL (VITAMIN D2) 50000 UNIT (1.25 MG) CAPSULE PO SCH (10:00)
[2017-05-28] MEDS ORDERED: FLUOXETINE HCL 20 MG CAPSULE PO SCH (10:00)
[2017-05-28] MEDS ORDERED: ARIPIPRAZOLE 5 MG TABLET PO SCH (10:00)
[2017-05-28] MEDS ORDERED: [UNRECOGNIZED DRUG - OTHER] PO SCH (10:00)
[2017-05-28] MEDS: PREGABALIN 75 MG CAPSULE PO SCH (11:03)
[2017-05-28] MEDS: CLONIDINE HCL 0.1 MG TABLET PO SCH (11:03)
[2017-05-28] MEDS: GABAPENTIN 400 MG CAPSULE PO SCH (11:03)
--- NOTE | 2017-05-28 17:16 | PDOC DISCHARGE SUMMARY ---
General - Admit/Disc Date/PCP Admission Date/Primary Care Provider: 05/27/17 14:18 ANDREIA LÓPEZ MD Discharge Date: 05/28/17 - Discharge Diagnosis (1) Acute hyperkalemia Is this a current diagnosis for this admission?: Yes (2) Acute renal failure Is this a current diagnosis for this admission?: Yes (3) Infestation by bed bug Is this a current diagnosis for this admission?: Yes (4) Anxiety and depression Is this a current diagnosis for this admission?: Yes (5) Cellulitis of right lower extremity Is this a current diagnosis for this admission?: Yes (6) Coronary artery disease Is this a current diagnosis for this admission?: Yes (7) Diabetes Is this a current diagnosis for this admission?: Yes (8) Diabetic infection of left foot Is this a current diagnosis for this admission?: Yes (9) HIV (human immunodeficiency virus infection) Is this a current diagnosis for this admission?: Yes (10) Hyperglycemia due to type 2 diabetes mellitus Is this a current diagnosis for this admission?: Yes (11) Hypertension Is this a current diagnosis for this admission?: Yes (12) Normocytic anemia Is this a current diagnosis for this admission?: Yes (13) Peripheral vascular disease Is this a current diagnosis for this admission?: Yes (14) Bipolar disorder Is this a current diagnosis for this admission?: Yes (15) CKD (chronic kidney disease), stage III Is this a current diagnosis for this admission?: Yes (16) Cocaine abuse Is this a current diagnosis for this admission?: Yes (17) History of pulmonary embolism Is this a current diagnosis for this admission?: Yes (18) Marijuana use Is this a current diagnosis for this admission?: Yes (19) PTSD (post-traumatic stress disorder) Is this a current diagnosis for this admission?: Yes - Additional Information Resuscitation Status: Full Code Discharge Diet: Cardiac, Diabetic Discharge Activity: Activity As Tolerated, Slowly Increase Activity Home Medications: Alprazolam [Xanax] 2 mg PO BIDP PRN 05/27/17 Aripiprazole [Abilify] 20 mg PO DAILY 05/27/17 Clonidine HCl [Catapres 0.1 mg Tablet] 0.1 mg PO Q12 05/27/17 Daptomycin [Cubicin Inj 500 mg Vial] 720 mg IV DAILY 05/27/17 Emtricitab/Rilpiviri/Tenof Ala [Odefsey Tablet] 1 tab PO DAILY 05/27/17 Ergocalciferol (Vitamin D2) [Drisdol 50,000 unit (1.25MG) Capsule] 50,000 unit PO Q7D 05/27/17 Fluoxetine HCl [Prozac] 40 mg PO DAILY 05/27/17 Gabapentin [Neurontin 400 mg Capsule] 400 mg PO Q12 05/27/17 Hydralazine HCl [Apresoline 50 mg Tablet] 50 mg PO Q8 05/27/17 Prazosin HCl [Minipress] 1 mg PO QHS 05/27/17 Simvastatin [Zocor 20 mg Tablet] 20 mg PO QHS 05/27/17 Zolpidem Tartrate [Ambien] 15 mg PO HSP PRN 05/27/17 Permethrin 60 gm TP ASDIR PRN #1 cream.gm. 05/28/17 Sodium Polystyrene Sulfonate [Kayexalate 15 Gm/60 Ml Susp 60 Ml] 30 gm PO ASDIR PRN #10 bottle 05/28/17 History of Present Illness History of Present Illness: MILADYS LONDON III is a 46 year old male with a history of HIV, DM I, HTN, osteomyelitis, cocaine abuse, opiate and benzodiazepine dependency who presents to the emergency department for follow up on laboratory studies. Patient was recently admitted here to on from [facility] on 05/21/2017 to 05/22/17 for a similar condition with hyperkalemia and dehydration. I have reviewed this H& P and discharge summary. Patient reports no changes in his medications. He does report the use of cocaine on Thursday. He reports that he has not been checking his sugar, but he has been taking his insulin. Patient reports pain in his foot. He reports some liquid diarrhea yesterday. Without hematochezia or melena. He also describes to sweats and nausea with vomiting. He denies any overt fevers but did not take his temperature. Patient actually presented today to the emergency department as he was followed by nephrology for an elevated potassium. Repeat potassium here in the emergency department reveal 6.5 with peak T waves on EKG. Patient has received calcium gluconate, insulin, D50, and Kayexalate. He is referred to the hospital service for evaluation of hyperkalemia And acute on chronic renal failure. Hospital Course Hospital Course: In discussion with his scaler, patient is to be taking Kayexalate once weekly. He reports noncompliance with this. Patient was noted by nursing staff to have bedbugs. Patient given education on this matter. Instructed with teach back on use of permethrin cream. Patient's acute renal failure improved with hydration and his hyperkalemia improved with Kayexalate. Patient is advised very strongly to not use illicit drugs and to take his medications as they are Sprecher prescribed to him. Due to patient's repeated admissions for hyperkalemia as well as underlying HIV disease a cosyntropin stim test was performed and patient appeared to respond appropriately. Adrenal insufficiency is essentially ruled out at this point. Patient is discharged home in stable condition Physical Exam Vital Signs: Temp Pulse Resp BP Pulse Ox 97.2 F 75 14 151/95 H 96 05/28/17 10:14 05/28/17 10:15 05/28/17 10:15 05/28/17 10:14 05/28/17 10:15 Intake & Output 05/27/17 05/28/17 05/29/17 06:59 06:59 06:59 Intake Total 1964 Balance 1964 Weight 110.5 kg Exam: General appearance: PRESENT: no acute distress, well-developed, well-nourished, other - Chronically ill-appearing Head exam: PRESENT: atraumatic, normocephalic Eye exam: PRESENT: conjunctiva pink, EOMI. ABSENT: PERRLA - Left pupil unreactive, chronic blindness secondary to diabetic retinopathy, scleral icterus Ear exam: PRESENT: normal external ear exam Mouth exam: PRESENT: mopist mucosa, tongue midline Neck exam: ABSENT: JVD, lymphadenopathy, thyromegaly, tracheal deviation Respiratory exam: PRESENT: clear to auscultation vanessa. ABSENT: rales, rhonchi, wheezes Cardiovascular exam: PRESENT: RRR, +S1, +S2. ABSENT: diastolic murmur, rubs, systolic murmur GI/Abdominal exam: PRESENT: normal bowel sounds, soft. ABSENT: distended, guarding, mass, organolmegaly, rebound, tenderness Rectal exam: PRESENT: deferred Extremities exam: PRESENT: full ROM. ABSENT: calf tenderness, clubbing, pedal edema Neurological exam: PRESENT: alert, awake, oriented to person, oriented to place , oriented to time, oriented to situation, CN II-XII grossly intact. ABSENT: motor sensory deficit Psychiatric exam: PRESENT: appropriate affect, normal mood. Results Laboratory Results: 05/28/17 06:30 05/28/17 06:30 05/27/17 05/28/17 05/28/17 22:20 06:30 06:30 WBC 4.3 RBC 3.73 L Hgb 10.4 L Hct 32.0 L MCV 86 MCH 27.8 MCHC 32.4 RDW 14.4 H Plt Count 284 Seg Neutrophils % 50.0 Lymphocytes % 27.8 Monocytes % 14.3 H Eosinophils % 5.9 Basophils % 2.0 Absolute Neutrophils 2.1 Absolute Lymphocytes 1.2 Absolute Monocytes 0.6 Absolute Eosinophils 0.3 Absolute Basophils 0.1 Sodium 133.8 L 135.5 L Potassium 5.0 D 4.9 Chloride 101 101 Carbon Dioxide 23 23 Anion Gap 10 12 BUN 30 H 25 H Creatinine 1.58 H 1.42 H Est GFR ( Amer) 57 L > 60 Est GFR (Non-Af Amer) 47 L 53 L Glucose 369 H 336 H Calcium 8.1 L 8.7 05/27/17 05/28/17 05/28/17 20:15 02:25 08:05 Troponin I < 0.012 < 0.012 < 0.012 Qualifiers [place] BEING DISCHARGED WITH ANY OF THE FOLLOWING DIAGNOSIS?: No Plan Time Spent: Greater than 30 Minutes
--- NOTE | 2017-05-28 21:02 | PDOC CONSULTATION ---
Addendum entered and electronically signed by JERE RAYMUNDO PA-C 05/28/17 21: 14: Physical Exam - Vital signs Vitals: Temp Pulse Resp BP Pulse Ox 98.2 F 78 12 135/87 H 97 05/27/17 10:54 05/27/17 10:54 05/27/17 10:54 05/27/17 10:54 05/27/17 10:54 - Notes Notes: Disregard previous physical exam for nephrology consult note - General General appearance: Appears well, Alert In distress: None - HEENT Head: Normocephalic Eyes: Normal Neck: Normal - Neurological Neuro grossly intact: Yes Cognition: Normal Orientation: AAOx4 [place] Coma Scale Eye Opening: Spontaneous [place] Coma Scale Verbal: Oriented [place] Coma Scale Motor: Obeys Commands [place] Coma Scale Total: 15 Speech: Normal - Psychological Associated symptoms: Depressed Original Note: <JERE RAYMUNDO - Last Filed: 05/28/17 21:11> Consultation Consult Date: 05/28/17 Consult reason:: hyperkalemia History of Present Illness Admission Date/PCP: 05/27/17 14:18 ANDREIA LÓPEZ MD History of Present Illness: MILADYS LONDON III is a 46 year old male with a history of HIV, DM I, HTN, osteomyelitis, cocaine abuse, opiate and benzodiazepine dependency who presents to the emergency department after I saw him at the office. Lab results arrived after he was seen in the office and showed an elevated potassium of 6.8. It took an extra day to get in contact with him because he had given an inactive number. After he called the office with a different number to get his labe results he was directed straight to the ER. Patient was recently admitted here on 05/21/2017 to 05/22/17 for a similar condition with hyperkalemia and dehydration. He admits to not following his low potassium diet and does admit to cocaine use. He is supposed to be on weekly kayexalate, but it is questionable with whether he uses it weekly. Past Medical History Cardiac Medical History: Reports: Coronary Artery Disease, Hyperlipidemia, Hypertension-primary, Myocardial Infarction, Peripheral Vascular Disease, Pulmonary Embolism Pulmonary Medical History: Reports: Asthma, Chronic Obstructive Pulmonary Disease (COPD), Pneumonia - 1 year ago Neurological Medical History: Reports: Seizures - 4 years ago; Depakote stopped by his physician. Endocrine Medical History: Reports: Diabetes Mellitus Type 1 Renal/ Medical History: Reports: Chronic Kidney Disease Stage III Malignancy Medical History: GI Medical History: Reports: Hepatitis Musculoskeltal Medical History: Reports: Arthritis Psychiatric Medical History: Reports: Bipolar Disorder, Depression - & anxiety, Post Traumatic Stress Disorder Infectious Medical History: Reports: HIV - Patient reports no detectable viral count, Methicillin-resist Staph Aureus Past Surgical History Past Surgical History: Reports: Orthopedic Surgery - right knee replacement, rt toe amputation; amputation 2 left toes., Other - Laser eye surgery Social History Smoking Status: Never Smoker Frequency of Alcohol Use: Occasional Hx Recreational Drug Use: Yes Drugs: Cocaine, Marijuana Hx Prescription Drug Abuse: Yes - Benzodiazepines, opiates - Advance Directive Resuscitation Status: Full Code Family History Parental Family History Reviewed: No Children Family History Reviewed: No Sibling(s) Family History Reviewed.: No Medication/Allergy Home Medications: Alprazolam [Xanax] 2 mg PO BIDP PRN 05/27/17 Aripiprazole [Abilify] 20 mg PO DAILY 05/27/17 Clonidine HCl [Catapres 0.1 mg Tablet] 0.1 mg PO Q12 05/27/17 Daptomycin [Cubicin Inj 500 mg Vial] 720 mg IV DAILY 05/27/17 Emtricitab/Rilpiviri/Tenof Ala [Odefsey Tablet] 1 tab PO DAILY 05/27/17 Ergocalciferol (Vitamin D2) [Drisdol 50,000 unit (1.25MG) Capsule] 50,000 unit PO Q7D 05/27/17 Fluoxetine HCl [Prozac] 40 mg PO DAILY 05/27/17 Gabapentin [Neurontin 400 mg Capsule] 400 mg PO Q12 05/27/17 Hydralazine HCl [Apresoline 50 mg Tablet] 50 mg PO Q8 05/27/17 Prazosin HCl [Minipress] 1 mg PO QHS 05/27/17 Simvastatin [Zocor 20 mg Tablet] 20 mg PO QHS 05/27/17 Zolpidem Tartrate [Ambien] 15 mg PO HSP PRN 05/27/17 Permethrin 60 gm TP ASDIR PRN #1 cream.gm. 05/28/17 Sodium Polystyrene Sulfonate [Kayexalate 15 Gm/60 Ml Susp 60 Ml] 30 gm PO ASDIR PRN #10 bottle 05/28/17 Allergies/Adverse Reactions: Penicillins Allergy (Verified 05/26/17 10:33) rash Physical Exam Vital Signs: Temp Pulse Resp BP Pulse Ox 97.2 F 75 14 151/95 H 96 05/28/17 10:14 05/28/17 10:15 05/28/17 10:15 05/28/17 10:14 05/28/17 10:15 Intake & Output 05/27/17 05/28/17 05/29/17 06:59 06:59 06:59 Intake Total 1964 Balance 1964 Weight 110.5 kg General appearance: PRESENT: no acute distress, morbidly obese. ABSENT: cooperative, disheveled, hard of hearing, mild distress, obese, severe distress , thin, well-developed, well-nourished, other Exam: no physical exam was done other than observation while talking to him Head exam: PRESENT: atraumatic. ABSENT: normocephalic, other Eye exam: ABSENT: conjunctival injection, conjunctiva pink, conjunctiva pale, EOMI, nystagmus, periorbital swelling, PERRLA, scleral icterus, other Ear exam: ABSENT: bleeding, drainage, normal external ear exam, TM's normal bilaterally, other Mouth exam: PRESENT: moist, neck supple Throat exam: ABSENT: post pharyngeal erythema, tonsillar erythema, tonsillar exudate, tonsillogmegaly, other Neck exam: ABSENT: carotid bruit, full ROM, JVD, lymphadenopathy, meningismus, tenderness, thyromegaly, tracheal deviation, tracheostomy, other Respiratory exam: ABSENT: accessory muscle use, chest wall tenderness, clear to auscultation vanessa, crackles, decreased breath sounds, prolonged expiratory phas, rales, retraction, rhonchi, stridor, symmetrical, tachypnea, unlabored, wheezes , other Cardiovascular exam: ABSENT: bradycardia, carotid bruit, clicks, diastolic murmur, gallop, irregular rhythm, RRR, rubs, +S1, +S2, systolic murmur, tachycardia Pulses: ABSENT: normal carotid pulses, normal radial pulses, normal femoral pulses, normal dorsalis pedis pul, +1 pedal pulses bilateral, +2 pedal pulses bilateral, other Vascular exam: ABSENT: normal capillary refill, pallor, other GI/Abdominal exam: ABSENT: ascites, diminished bowel sounds, distended, firm, guarding, hernia, hyperactive bowel sounds, hypoactive bowel sounds, mass, Isaac's sign, normal bowel sounds, organomegaly, rebound, renal bruit, rigid, soft, tenderness Rectal exam: ABSENT: deferred, black stool, bloody stool, decreased rectal tone , fecal impaction, heme (-) stool, heme (+) stool, hemorrhoids, laceration, mass , normal inspection, normal prostate, normal rectal tone, prostate enlargement, prostate tenderness, tenderness, other Gentrourinary exam: ABSENT: ecchymosis, erythema, lacerations, lesions, scrotal swelling, testicular tenderness, urethral discharge, indwelling catheter, other Extremities exam: ABSENT: calf tenderness, clubbing, full ROM, joint swelling, pedal edema, tenderness, +1 edema, +2 edema, other Musculoskeletal exam: ABSENT: ambulatory, deformity, dislocation, full ROM, normal inspection, tenderness, other Neurological exam: PRESENT: alert, oriented to person, oriented to place, oriented to time, oriented to situation. ABSENT: altered, awake, reflexes normal, abnormal gait, ataxia, CN II-XII grossly intact, motor sensory deficit, normal gait, aphasic, other Psychiatric exam: PRESENT: appropriate affect, normal mood Focused psych exam: ABSENT: catatonic, delusional, euphoric, flight of ideas, internal stimuli, paranoid, pressured speech, psychomotor agitation, restlessness, other Skin exam: ABSENT: abrasion, cyanosis, dry, erythema, intact, jaundice, mottled , normal color, pallor, petechiae, rash, skin tears, urticaria, vesicles, warm, other Results Laboratory Results: 05/28/17 06:30 05/28/17 06:30 05/27/17 05/28/17 05/28/17 22:20 06:30 06:30 WBC 4.3 RBC 3.73 L Hgb 10.4 L Hct 32.0 L MCV 86 MCH 27.8 MCHC 32.4 RDW 14.4 H Plt Count 284 Seg Neutrophils % 50.0 Lymphocytes % 27.8 Monocytes % 14.3 H Eosinophils % 5.9 Basophils % 2.0 Absolute Neutrophils 2.1 Absolute Lymphocytes 1.2 Absolute Monocytes 0.6 Absolute Eosinophils 0.3 Absolute Basophils 0.1 Sodium 133.8 L 135.5 L Potassium 5.0 D 4.9 Chloride 101 101 Carbon Dioxide 23 23 Anion Gap 10 12 BUN 30 H 25 H Creatinine 1.58 H 1.42 H Est GFR ( Amer) 57 L > 60 Est GFR (Non-Af Amer) 47 L 53 L Glucose 369 H 336 H Calcium 8.1 L 8.7 05/27/17 05/28/17 05/28/17 20:15 02:25 08:05 Troponin I < 0.012 < 0.012 < 0.012 Assessment & Plan - Diagnosis (1) Cocaine abuse Is this a current diagnosis for this admission?: YesPlan: Advised to stop using cocaine. Should be cautious with the use of bet-blockers on him. (2) CKD (chronic kidney disease), stage III Is this a current diagnosis for this admission?: YesPlan: Stable, no need for intervention. (3) Acute hyperkalemia Is this a current diagnosis for this admission?: YesPlan: Reinforce the use of weekly kayexalate. Discuss the seriousness and need to follow a low potassium diet. D/C lisinopril. (4) HIV (human immunodeficiency virus infection) Is this a current diagnosis for this admission?: YesPlan: Followed by ID (5) Osteomyelitis of left foot Qualifiers: Osteomyelitis type: subacute Qualified Code(s): M86.272 - Subacute osteomyelitis, left ankle and foot Plan: On IV daptomycin 500mg <Cade OWENS - Last Filed: 06/01/17 13:53> History of Present Illness Admission Date/PCP: 05/27/17 14:18 ANDREIA LÓPEZ MD Physical Exam Vital Signs: Temp Pulse Resp BP Pulse Ox 97.2 F 75 14 151/95 H 96 05/28/17 10:14 05/28/17 10:15 05/28/17 10:15 05/28/17 10:14 05/28/17 10:15 Results Laboratory Results: 05/28/17 06:30 05/28/17 06:30 05/27/17 05/28/17 05/28/17 20:15 02:25 08:05 Troponin I < 0.012 < 0.012 < 0.012
[2017-06-04] MEDS ORDERED: ERGOCALCIFEROL (VITAMIN D2) 50000 UNIT (1.25 MG) CAPSULE PO SCH (10:00)
== END 2017-05-28 11:50 | disposition home health service (06) | DRG 640 ==
LOC: ER 10:51 → EH 14:18 → 3W 17:28
PROVIDERS: ADMIT Family Medicine; ATTEND Family Medicine
DX: E87.5 Hyperkalemia (principal); B20 Human immunodeficiency virus [HIV] disease; N17.9 Acute kidney failure, unspecified; F13.20 Sedative, hypnotic or anxiolytic dependence, uncomplicated; M86.272 Subacute osteomyelitis, left ankle and foot; L03.115 Cellulitis of right lower limb; F41.9 Anxiety disorder, unspecified; F32.9 Major depressive disorder, single episode, unspecified; I25.10 Atherosclerotic heart disease of native coronary artery without angina pectoris; I12.9 Hypertensive chronic kidney disease with stage 1 through stage 4 chronic kidney disease, or unspecified chronic kidney disease; E11.22 Type 2 diabetes mellitus with diabetic chronic kidney disease; E11.65 Type 2 diabetes mellitus with hyperglycemia; E11.69 Type 2 diabetes mellitus with other specified complication; E11.42 Type 2 diabetes mellitus with diabetic polyneuropathy; E11.51 Type 2 diabetes mellitus with diabetic peripheral angiopathy without gangrene; N18.3 Chronic kidney disease, stage 3 (moderate); D64.9 Anemia, unspecified; F14.10 Cocaine abuse, uncomplicated; F12.90 Cannabis use, unspecified, uncomplicated; F43.10 Post-traumatic stress disorder, unspecified; J44.9 Chronic obstructive pulmonary disease, unspecified; J45.909 Unspecified asthma, uncomplicated; M19.90 Unspecified osteoarthritis, unspecified site; B88.8 Other specified infestations; Z96.651 Presence of right artificial knee joint; Z91.19 Patient's noncompliance with other medical treatment and regimen; Z86.711 Personal history of pulmonary embolism; Z79.4 Long term (current) use of insulin; I25.2 Old myocardial infarction; Z95.9 Presence of cardiac and vascular implant and graft, unspecified; Z79.2 Long term (current) use of antibiotics; Z86.14 Personal history of Methicillin resistant Staphylococcus aureus infection; Z88.0 Allergy status to penicillin; Z89.421 Acquired absence of other right toe(s)
CPT/HCPCS: 36415; 71020; 77001; 80048; 80053; 80307; 81001; 82024; 82533; 82550; 82570; 82728; 82962; 83540; 83550; 84156; 84165; 84443; 84484; 85025; 85027; 87040; 96365; 96375; 99285; J0610; J0834; J0878; J1644; J1815; J3490; J7030

== ENCOUNTER 2017-06-07 08:59 | Inpatient (IN) | payer MEDICARE, MEDICAID ==
--- NOTE | 2017-06-07 09:29 | ER Document Report ---
ED General - General Stated Complaint: FOOT WOUND Time Seen by Provider: 06/07/17 09:07 Mode of Arrival: Medic Information source: Patient Notes: 46-year-old male history of HIV diabetes with previous amputations of digits of toes presents with complaints of toe pain. Patient notes he struck his toe. Patient denies any fevers or chills blood sugars noted to be highly elevated, patient is noncompliant with medications is noted to be covered with bedbugs TRAVEL OUTSIDE OF THE [place] IN LAST 30 DAYS: No - HPI Onset: Just prior to arrival Onset/Duration: Sudden Quality of pain: Achy Severity: Mild Pain Level: 1 Associated symptoms: Body/muscle aches Exacerbated by: Movement Relieved by: Denies Similar symptoms previously: Yes Recently seen / treated by doctor: Yes - Related Data Allergies/Adverse Reactions: Penicillins Allergy (Verified 05/26/17 10:33) rash Past Medical History - Social History Smoking Status: Current Every Day Smoker Cigarette use (# per day): Yes Chew tobacco use (# tins/day): No Smoking Education Provided: No Drug Abuse: Other Family History: CAD, COPD, DM, Hyperlipidemia, Hypertension - Past Medical History Cardiac Medical History: Reports: Hx Coronary Artery Disease, Hx Heart Attack, Hx Hypercholesterolemia, Hx Hypertension, Hx Peripheral Vascular Disease, Hx Pulmonary Embolism Pulmonary Medical History: Reports: Hx Asthma, Hx COPD, Hx Pneumonia - 1 year ago Neurological Medical History: Reports: Hx Seizures - 4 years ago; Depakote stopped by his physician. Endocrine Medical History: Reports: Hx Diabetes Mellitus Type 1, Hx Diabetes Mellitus Type 2 - IDDM Renal/ Medical History: Reports: Hx Renal Insufficiency. Denies: Hx Peritoneal Dialysis Malignancy Medical History: GI Medical History: Reports: Hx Hepatitis Musculoskeltal Medical History: Reports Hx Arthritis, Reports Hx Musculoskeletal Trauma Skin Medical History: Reports Hx MRSA Psychiatric Medical History: Reports: Hx Anxiety, Hx Bipolar Disorder, Hx Depression - & anxiety, Hx Post Traumatic Stress Disorder Traumatic Medical History: Reports: Hx Fractures - Knee pelvis and hand Infectious Medical History: Reports: Hx Hepatitis, Hx HIV - Patient reports no detectable viral count, Hx MRSA Past Surgical History: Reports: Hx Oral Surgery - Removal of most of teeth, Hx Orthopedic Surgery - right knee replacement, rt toe amputation; amputation 2 left toes., Other - Laser eye surgery - Immunizations Immunizations up to date: Yes Hx Diphtheria, Pertussis, Tetanus Vaccination: Yes Hx Pneumococcal Vaccination: 11/09/13 Review of Systems - Review of Systems Notes: REVIEW OF SYSTEMS: CONSTITUTIONAL : Denies fever, chills, or sweats. Denies recent illness. EENT: Denies eye, ear, throat, or mouth pain or symptoms. Denies nasal or sinus congestion or discharge. Denies throat, tongue, or mouth swelling or difficulty swallowing. CARDIOVASCULAR: Denies chest pain. Denies palpitations or racing or irregular heart beat. Denies ankle edema. RESPIRATORY: Denies cough, cold, or chest congestion. Denies shortness of breath, difficulty breathing, or wheezing. GASTROINTESTINAL: Denies abdominal pain or distention. Denies nausea, vomiting , or diarrhea. Denies blood in vomitus, stools, or per rectum. Denies black, tarry stools. Denies constipation. GENITOURINARY: Denies difficulty urinating, painful urination, burning, frequency, blood in urine, or discharge. MUSCULOSKELETAL: Admits to foot pain SKIN: Denies rash, lesions or sores. HEMATOLOGIC : Denies easy bruising or bleeding. LYMPHATIC: Denies swollen, enlarged glands. NEUROLOGICAL: Denies confusion or altered mental status. Denies passing out or loss of consciousness. Denies dizziness or lightheadedness. Denies headache. Denies weakness or paralysis or loss of use of either side. Denies problems with gait or speech. Denies sensory loss, numbness, or tingling. Denies seizures. PSYCHIATRIC: Denies anxiety or stress. Denies depression, suicidal ideation, or homicidal ideation. ALL OTHER SYSTEMS REVIEWED AND NEGATIVE. Dictation was performed using [employer] voice recognition software PHYSICAL EXAMINATION: GENERAL: Well-appearing, well-nourished and in no acute distress. HEAD: Atraumatic, normocephalic. EYES: Pupils equal round and reactive to light, extraocular movements intact, sclera anicteric, conjunctiva are normal. ENT: Nares patent, oropharynx clear without exudates. Moist mucous membranes. NECK: Normal range of motion, supple without lymphadenopathy LUNGS: Breath sounds clear to auscultation bilaterally and equal. No wheezes rales or rhonchi. HEART: Regular rate and rhythm without murmurs ABDOMEN: Soft, nontender, nondistended abdomen. No guarding, no rebound. No masses appreciated. Musculoskeletal: Normal range of motion, no pitting or edema. No cyanosis. NEUROLOGICAL: Cranial nerves grossly intact. Normal speech, normal gait. Normal sensory, motor exams PSYCH: Normal mood, normal affect. SKIN: Necrotic appearing right great toe there is digits from previous amputations of both feet Course - Re-evaluation Re-evalutation: 06/07/17 09:29 Lab work pending patient is chronically ill 06/07/17 11:17 Patient meets sepsis criteria, he will be treated with IV antibiotics and admitted - Laboratory Result Diagrams: 06/07/17 09:28 06/07/17 09:28 Laboratory results interpreted by me: 06/07/17 06/07/17 06/07/17 09:28 09:28 09:28 RBC 3.52 L Hgb 10.1 L Hct 30.1 L RDW 14.3 H Seg Neutrophils % 80.6 H Lymphocytes % 12.6 L VBG pH 7.29 L Sodium 129.7 L Potassium 5.1 H Chloride 96 L Carbon Dioxide 20 L BUN 29 H Creatinine 1.90 H Est GFR ( Amer) 46 L Est GFR (Non-Af Amer) 38 L Glucose 387 H Direct Bilirubin 0.6 H Alkaline Phosphatase 227 H - Diagnostic Test Radiology reviewed: Image reviewed, Reports reviewed - EKG Interpretation by Me EKG shows normal: Sinus rhythm, [place], Intervals, QRS Complexes Rate: Tachycardia - Tachycardic with peaked T waves When compared to previous EKG there are: Changes noted Critical Care Note - Critical Care Note Total time excluding time spent on procedures (mins): 31 Comments: 31 minutes of critical care time spent in direct contact evaluating and reevaluating the patient, treating symptoms, reviewing labs and studies and speaking with family and consultants excluding any procedures Discharge - Discharge Clinical Impression: HIV (human immunodeficiency virus infection), CKD (chronic kidney disease), stage III, Necrotic toes Sepsis Qualifiers: Sepsis type: sepsis due to unspecified organism Qualified Code(s): A41.9 - Sepsis, unspecified organism Diabetes Qualifiers: Diabetes mellitus type: type 2 Diabetes mellitus complication detail: with polyneuropathy Diabetes mellitus terminal worker insulin use: with terminal worker use Qualified Code(s): E11.42 - Type 2 diabetes mellitus with diabetic polyneuropathy; Z79.4 - superintendent container terminal (current) use of insulin Condition: Fair Disposition: ADMITTED INPATIENT Admitting Provider: Hospitalist Unit Admitted: Telemetry
[2017-06-07] MEDS ORDERED: NORMAL SALINE 1000 ML 1,000 ML IV ONE (09:30)
[2017-06-07] MEDS ORDERED: ACETAMINOPHEN 325 MG TABLET PO ONE (09:47)
[2017-06-07 09:53] LABS: ABSOLUTE EOSINOPHILS # (AUTO) 0.2 10^3/uL (0.0-0.6); ABSOLUTE LYMPHOCYTES (AUTO) 0.8 10^3/uL (0.5-4.7); ABSOLUTE MONOCYTES (AUTO) 0.2 10^3/uL (0.1-1.4); ABSOLUTE NEUT (AUTO) 5.2 10^3/uL (1.7-8.2); BASOPHILS % (AUTO) 0.7 % (0-2); EOSINOPHILS % (AUTO) 2.5 % (0-6); HEMATOCRIT 30.1 % (37.9-51.0); HEMOGLOBIN 10.1 g/dL (13.5-17.0); HGB HCT DIFFERENCE 0.2; LYMPHOCYTES % (AUTO) 12.6 % (13-45); MEAN CORPUSCULAR HEMOGLOBIN 28.7 pg (27.0-33.4); MEAN CORPUSCULAR HGB CONC 33.5 g/dL (32.0-36.0); MEAN CORPUSCULAR VOLUME 86 fl (80-97); MONOCYTES % (AUTO) 3.6 % (3-13); RED BLOOD COUNT 3.52 10^6/uL (4.35-5.55); RED CELL DISTRIBUTION WIDTH 14.3 % (11.5-14.0); SEGMENTED NEUTROPHILS % (AUTO) 80.6 % (42-78); WHITE BLOOD COUNT 6.5 10^3/uL (4.0-10.5)
[2017-06-07 09:55] LABS: VENOUS BLOOD BASE EXCESS -3.3 mmol/L; VENOUS BLOOD HCO3 23.7 mmol/L (20-32); VENOUS BLOOD PCO2 49.9 mmHg (35-63); VENOUS BLOOD PH 7.29 (7.30-7.42)
[2017-06-07 09:57] LABS: PROTHROMBIN TIME 12.6 SEC (11.4-15.4)
[2017-06-07] MEDS ORDERED: VANCOMYCIN HCL INJ 1000 MG VIAL IV ONE (09:57)
[2017-06-07] MEDS ORDERED: CEFTRIAXONE INJ 1000 MG VIAL IV ONE (09:57)
[2017-06-07] MEDS: NORMAL SALINE 1000 ML 1,000 ML IV PRN ×2 (10:03→11:47)
[2017-06-07 10:07] LABS: ALANINE AMINOTRANSFERASE 40 U/L (21-72); ALBUMIN 3.9 g/dL (3.5-5.0); ALKALINE PHOSPHATASE 227 U/L (38-126); ANION GAP 14 (5-19); ASPARTATE AMINO TRANSFERASE 28 U/L (17-59); BILIRUBIN,DIRECT 0.6 mg/dL (0.0-0.4); BILIRUBIN,TOTAL 0.6 mg/dL (0.2-1.3); BLOOD UREA NITROGEN 29 mg/dL (7-20); CALCIUM 8.8 mg/dL (8.4-10.2); CARBON DIOXIDE 20 mmol/L (22-30); CHLORIDE 96 mmol/L (98-107); POTASSIUM 5.1 mmol/L (3.6-5.0); SODIUM 129.7 mmol/L (137-145)
[2017-06-07 10:14] LABS: GLUCOSE 387 mg/dL (75-110)
--- NOTE | 2017-06-07 11:06 | RADIOLOGY REPORT (SQ) ---
EXAM DESCRIPTION: FOOT RIGHT 2 VIEWS COMPLETED DATE/TIME: 06/07/2017 10:43 am REASON FOR STUDY: right foot COMPARISON: 03/17/2014 NUMBER OF VIEWS: Three views. TECHNIQUE: AP, lateral and oblique radiographic images acquired of the right foot. LIMITATIONS: None. FINDINGS: Bones are osteopenic. There has been amputation of the 3rd phalanx. Bone fragment talar dome most consistent with loose body. If there is clinical suspicion of acute talar fracture, follow -up CT is recommended. There are vascular calcifications. IMPRESSION: No acute findings. TECHNICAL DOCUMENTATION: JOB ID: [id number] [employer]- All Rights Reserved
--- NOTE | 2017-06-07 11:16 | EKG REPORT ---
SEVERITY:- BORDERLINE ECG - SINUS TACHYCARDIA BORDERLINE T ABNORMALITIES, INFERIOR LEADS : Confirmed by: Savannah Dodson MD 07-Jun-2017 11:14:44
[2017-06-07] MEDS ORDERED: IBUPROFEN 800 MG TABLET PO ONE (11:58)
[2017-06-07 12:16] LABS: APPEARANCE,URINE CLEAR; BILIRUBIN,URINE NEGATIVE (NEGATIVE); GLUCOSE, URINE >=500 mg/dL (NEGATIVE); KETONES,URINE NEGATIVE (NEGATIVE); LEUKOCYTE ESTERASE,URINE NEGATIVE (NEGATIVE); NITRITE,URINE NEGATIVE (NEGATIVE); PROTEIN,URINE 100 mg/dL (NEGATIVE); URINE SPECIFIC GRAVITY 1.016; UROBILINOGEN,URINE NEGATIVE mg/dL (<2.0)
[2017-06-07] MEDS ORDERED: ONDANSETRON HCL INJ/PF 4 MG/2 ML SDV IV PRN (14:18)
--- NOTE | 2017-06-07 14:57 | PDOC H&P ---
History of Present Illness Admission Date/PCP: 06/07/17 11:27 ANGEL EVANS Patient complains of: Fever History of Present Illness: MILADYS LONDON III is a 46 year old male, with history of diabetes, HIV, peripheral vascular disease who is being treated for osteomyelitis of the left foot, has baseline on the left upper extremity for IV infusion of daptomycin presents to the emergency room because of fever of 1 day duration. The patient was recently discharged from the hospital about 10 days ago for hyperkalemia and renal failure. Patient was on Kayexalate he has intermittent diarrhea from the Kayexalate. He takes intravenous daptomycin for the osteomyelitis. 3 days ago the patient noted increasing pain and swelling on the right big toe where he has a baseline wound infection of the toenails. The patient reports induration surrounding it at baseline but this time it becomes more swollen red and painful With associated darkening of the skin. No purulent drainage was reported. Patient reports some dark drainage on the left foot as well. No pain or swelling noted on the PICC line site. Patient developed fever yesterday therefore he presented to the hospital for evaluation and was referred for admission. Staff and emergency room physician reports infestation by bedbugs. Past Medical History Past Medical History: Medication reconciliation pending verification from the patient's pharmacist Cardiac Medical History: Reports: Coronary Artery Disease, Myocardial Infarction , Hyperlipidema, Hypertension, Peripheral Vascular Disease, Pulmonary Embolism Pulmonary Medical History: Reports: Asthma, Chronic Obstructive Pulmonary Disease (COPD), Pneumonia - 1 year ago Neurological Medical History: Reports: Seizures - 4 years ago; Depakote stopped by his physician. Endocrine Medical History: Reports: Diabetes Mellitus Type 1, Diabetes Mellitus Type 2 - IDDM Renal/ Medical History: Malignancy Medical History: GI Medical History: Reports: Hepatitis Musculoskeltal Medical History: Reports: Arthritis Psychiatric Medical History: Reports: Bipolar Disorder, Depression - & anxiety, Post Traumatic Stress Disorder Hematology: Reports: Anemia Infectious Medical History: Reports: HIV - Patient reports no detectable viral count, Methicillin-Resistant Staph Aureus Past Surgical History Past Surgical History: Reports: Orthopedic Surgery - right knee replacement, rt toe amputation; amputation 2 left toes., Other - Laser eye surgery PICC line placement, wound debridement Social History Information Source: Patient Smoking Status: Current Every Day Smoker Frequency of Alcohol Use: Occasional Hx Recreational Drug Use: Yes Drugs: Cocaine, Marijuana Hx Prescription Drug Abuse: Yes - Benzodiazepines, opiates Family History Family History: CAD, COPD, DM, Hyperlipidemia, Hypertension Parental Family History Reviewed: Yes Children Family History Reviewed: Yes Sibling(s) Family History Reviewed.: Yes Medication/Allergy Allergies/Adverse Reactions: Penicillins Allergy (Verified 05/26/17 10:33) rash Review of Systems Constitutional: PRESENT: chills, fever(s). ABSENT: headache(s), night sweats, weakness, weight gain, weight loss Eyes: ABSENT: visual disturbances Ears: ABSENT: hearing changes Nose, Mouth, and Throat: ABSENT: mouth pain, sore throat Cardiovascular: PRESENT: edema - Bilateral feet. ABSENT: chest pain, dyspnea on exertion, orthropnea, palpitations Respiratory: PRESENT: cough - chronic without sputum production. ABSENT: dyspnea, hemoptysis Gastrointestinal: PRESENT: diarrhea - Attribute it from Kayexalate. ABSENT: abdominal pain, coffee ground emesis, constipation, hematemesis, hematochezia, melena, nausea, vomiting Genitourinary: ABSENT: difficulty urinating, dysuria, hematuria Musculoskeletal: ABSENT: deformity, joint swelling Integumentary: ABSENT: pruritus, rash, wounds Neurological: ABSENT: abnormal gait, abnormal speech, confusion, dizziness, focal weakness, syncope Psychiatric: ABSENT: anxiety, depression, homidical ideation, suicidal ideation Endocrine: ABSENT: cold intolerance, heat intolerance, polydipsia, polyuria Hematologic/Lymphatic: ABSENT: easy bleeding, easy bruising Physical Exam Vital Signs: Temp Pulse Resp BP Pulse Ox 103.0 F H 26 H 139/79 H 96 06/07/17 12:02 06/07/17 12:02 06/07/17 12:02 06/07/17 12:02 General appearance: PRESENT: no acute distress, cooperative, morbidly obese Head exam: PRESENT: atraumatic, normocephalic Eye exam: PRESENT: conjunctiva pale, EOMI, PERRLA. ABSENT: scleral icterus Ear exam: PRESENT: normal external ear exam. ABSENT: drainage Mouth exam: PRESENT: moist, neck supple, tongue midline, other - No thrush Throat exam: ABSENT: post pharyngeal erythema, tonsillar erythema Neck exam: ABSENT: carotid bruit, JVD, lymphadenopathy, thyromegaly Respiratory exam: PRESENT: clear to auscultation vanessa, unlabored. ABSENT: rales , rhonchi, wheezes Cardiovascular exam: PRESENT: RRR. ABSENT: diastolic murmur, gallop, rubs, systolic murmur Pulses: PRESENT: normal dorsalis pedis pul Vascular exam: PRESENT: normal capillary refill GI/Abdominal exam: PRESENT: normal bowel sounds, soft. ABSENT: distended, guarding, mass, organolmegaly, rebound, tenderness Rectal exam: PRESENT: deferred Extremities exam: PRESENT: full ROM, +1 edema - Both lower extremity. ABSENT: calf tenderness, clubbing Neurological exam: PRESENT: alert, awake, oriented to person, oriented to place , oriented to time, oriented to situation Psychiatric exam: PRESENT: appropriate affect, normal mood. ABSENT: homicidal ideation, suicidal ideation Skin exam: PRESENT: dry, erythema - Right foot and leg, warm, other - There is a foot ulcer noted on the left foot laterally. No foul-smelling drainage on the right foot. There is necrotic tissue on the big toe with a lot of fissuring and scaling with no foul-smelling drainage.. ABSENT: cyanosis Results Laboratory Results: 06/07/17 11:53 Urine Color YELLOW Urine Appearance CLEAR Urine pH 5.0 Ur Specific [place] 1.016 Urine Protein 100 H Urine Glucose (UA) >=500 H Urine Ketones NEGATIVE Urine Blood SMALL H Urine Nitrite NEGATIVE Ur Leukocyte Esterase NEGATIVE Urine WBC (Auto) 0 Urine RBC (Auto) 5 Impressions: Foot X-Ray 06/07/17 09:18 IMPRESSION: No acute findings. Assessment & Plan - Diagnosis (1) Cellulitis in diabetic foot Is this a current diagnosis for this admission?: Yes (2) Necrotic toes Is this a current diagnosis for this admission?: Yes (3) Osteomyelitis of left foot Qualifiers: Osteomyelitis type: subacute Qualified Code(s): M86.272 - Subacute osteomyelitis, left ankle and foot Is this a current diagnosis for this admission?: Yes (4) Hyperkalemia Is this a current diagnosis for this admission?: Yes (5) Anemia of chronic disease Is this a current diagnosis for this admission?: Yes (6) Diabetes Qualifiers: Diabetes mellitus type: type 2 Diabetes mellitus complication detail: with polyneuropathy Diabetes mellitus o[place] insulin use: with fci use Qualified Code(s): E11.42 - Type 2 diabetes mellitus with diabetic polyneuropathy; Z79.4 - [employer] (current) use of insulin Is this a current diagnosis for this admission?: Yes (7) HIV (human immunodeficiency virus infection) Is this a current diagnosis for this admission?: Yes (8) CKD (chronic kidney disease), stage III Is this a current diagnosis for this admission?: Yes (9) Anxiety and depression Is this a current diagnosis for this admission?: Yes (10) Coronary artery disease Qualifiers: Coronary Disease-Associated Artery/Lesion type: [place] artery [place] vs. transplanted heart: [place] heart Associated angina: without angina Qualified Code(s): I25.10 - Atherosclerotic heart disease of [place] coronary artery without angina pectoris Is this a current diagnosis for this admission?: Yes (11) Hypertension Qualifiers: Hypertension type: essential hypertension Qualified Code(s): I10 - Essential (primary) hypertension Is this a current diagnosis for this admission?: Yes (12) Infestation by bed bug Is this a current diagnosis for this admission?: Yes (13) Peripheral vascular disease Is this a current diagnosis for this admission?: Yes (14) Bipolar disorder Qualifiers: Active/Remission status: remission status unspecified Qualified Code (s): F31.9 - Bipolar disorder, unspecified Is this a current diagnosis for this admission?: Yes (15) PTSD (post-traumatic stress disorder) Is this a current diagnosis for this admission?: Yes (16) COPD (chronic obstructive pulmonary disease) Qualifiers: COPD type: unspecified COPD Qualified Code(s): J44.9 - Chronic obstructive pulmonary disease, unspecified Is this a current diagnosis for this admission?: Yes (17) Seizure Is this a current diagnosis for this admission?: Yes (18) History of pulmonary embolism Is this a current diagnosis for this admission?: Yes - Time Time Spent: 50 to 70 Minutes - Inpatient Certification Based on my medical assessment, after consideration of the patient's comorbidities, presenting symptoms, or acuity I expect that the services needed warrant INPATIENT care.: Yes I certify that my determination is in accordance with my understanding of Medicare's requirements for reasonable and necessary INPATIENT services [42 CFR 412.3e].: Yes Medical Necessity: Need For IV Fluids, Need for Pain Control, Need for IV Antibiotics, Need for Surgery, Risk of Diagnosis Which Will Require Inpatient Eval/Care/Monitoring Post Hospital Care: D/C Town Clerk Documentation - Plan Summary Plan Summary: Admit to medical floor, send cultures of the blood, continue daptomycin and add Invanz intravenously. Consult surgery for debridement. Sliding scale insulin, DVT prophylaxis with Lovenox, further testing depends on the initial evaluations outlined above. Patient may have underlying type IV RTA. We will consult Dr. Camargo.
[2017-06-07] MEDS ORDERED: ENOXAPARIN SODIUM INJ 40 MG/0.4 ML DISP.SYRIN SUBCUT ONE (16:00)
--- NOTE | 2017-06-07 16:20 | CONSULTATION REPORT E ---
Consultation Report NAME: MILADYS LONDON : 1970 AGE: 46Y DATE: 06/07/2017 406 A TO: PAULO SHRESTHA M.D. FROM: DEVIN MEDINA M.D. Requesting Physician REASON FOR CONSULTATION: Consultation called for ulcer on the right great toe tip of the great toe, another ulcer on the left foot lateral aspect. Both need to be debrided because of some necrotic tissue. HISTORY OF PRESENT ILLNESS: The patient is diabetic with a history of HIV, possible peripheral vascular disease, history of ulcers, toe amputations in the past. Now he has an ulcer on the right great toe tip and also in the left foot area needing to be debrided. Procedure was done at the bedside after explaining to the patient about indications and the possible need for further wound management. The patient has relative neuropathy due to his diabetes. He does not need any anesthesia because he does not feel any pain there because of paresthesia neuropathy. PROCEDURE NOTE: So both feet, right and left foot, cleaned with the Betadine, and then initially on the right great toe there was about 1 cm size of necrotic patch of the skin and subcutaneous tissue. was debrided with sharp scissors. An excisional sharp debridement was performed until a very clean layer of tissue was seen, but no bone exposure. No osteomyelitic signs. Afterward, the wound was irrigated, dressings were applied. Next, the left foot on the lateral aspect, a callus deep extending up to the tendon with necrotic tissue. All the necrotic tissue was excised by using the sharp scissors. A sharp excisional debridement was performed up to the tendon. After that, the wound was irrigated, dressings were applied. Both of the procedures were tolerated by the patient very well without any problems, and dry dressings were applied. Dressing and wound care instructions given the patient and nursing staff, also advised of arranging wound care when he leaves the hospital. DICTATING PHYSICIAN: PAULO SHRESTHA M.D. [id number] PHY#: [id number] ID: [id number] JOB#: [id number] ACCT: [id number] cc:PAULO SHRESTHA M.D. > [facility]
[2017-06-07] MEDS: DAPTOMYCIN IV SCH (16:49)
[2017-06-07] MEDS: NORMAL SALINE IV SCH (16:49)
[2017-06-07] MEDS ORDERED: DEXTROSE 40% GEL 15 GM TUBE PO PRN (17:38)
[2017-06-07] MEDS ORDERED: DEXTROSE 50%-WATER SYRINGE 12.5 GM/25 ML DOSE IV PRN (17:38)
[2017-06-07] MEDS ORDERED: GLUCAGON,HUMAN RECOMB 1 MG INJ IM PRN (17:38)
[2017-06-07] MEDS ORDERED: INSULIN REG, HUMAN 100 UNIT/ML 3 ML VIAL (PYX) ONE (17:38)
[2017-06-07] MEDS ORDERED: DEXTROSE 40% GEL 15 GM TUBE X 2 PO PRN (17:38)
[2017-06-07] MEDS ORDERED: DEXTROSE 50%-WATER SYRINGE 25 GM/50 ML DOSE IV PRN (17:38)
[2017-06-07] MEDS: DOCUSATE SODIUM 100 MG CAPSULE PO SCH (17:48)
[2017-06-07] MEDS: ERTAPENEM SODIUM 1 GM in NORMAL SALINE 50 ML IV SCH (17:59)
[2017-06-07] MEDS: OXYCODONE-ACETAMINOPHEN 5-325 MG TABLET PO PRN (18:14)
[2017-06-07] MEDS: INSULIN REG, HUMAN 100 UNIT/ML 3 ML VIAL (PYX) SUBCUT PRN (20:30)
[2017-06-08] MEDS: LANSOPRAZOLE 30 MG TAB.RAP.DR PO SCH (05:51)
[2017-06-08] MEDS: NORMAL SALINE 1000 ML 1,000 ML IV PRN ×2 (05:51→21:59)
[2017-06-08] MEDS: OXYCODONE-ACETAMINOPHEN 5-325 MG TABLET PO PRN ×2 (05:51→21:55)
[2017-06-08 05:57] LABS: ANION GAP 10 (5-19); BLOOD UREA NITROGEN 25 mg/dL (7-20); CALCIUM 8.3 mg/dL (8.4-10.2); CARBON DIOXIDE 21 mmol/L (22-30); CHLORIDE 104 mmol/L (98-107); CREATININE RESULT 1.79 mg/dL (0.52-1.25); GLUCOSE 187 mg/dL (75-110); SODIUM 134.9 mmol/L (137-145)
[2017-06-08 06:03] LABS: ABSOLUTE BASOPHILS # (AUTO) 0.1 10^3/uL (0.0-0.2); ABSOLUTE EOSINOPHILS # (AUTO) 0.2 10^3/uL (0.0-0.6); ABSOLUTE MONOCYTES (AUTO) 1.2 10^3/uL (0.1-1.4); ABSOLUTE NEUT (AUTO) 8.5 10^3/uL (1.7-8.2); BASOPHILS % (AUTO) 0.7 % (0-2); EOSINOPHILS % (AUTO) 1.8 % (0-6); HEMATOCRIT 26.3 % (37.9-51.0); HGB HCT DIFFERENCE 0.7; MEAN CORPUSCULAR HEMOGLOBIN 28.5 pg (27.0-33.4); MEAN CORPUSCULAR HGB CONC 34.1 g/dL (32.0-36.0); MEAN CORPUSCULAR VOLUME 84 fl (80-97); MONOCYTES % (AUTO) 11.2 % (3-13); RED BLOOD COUNT 3.14 10^6/uL (4.35-5.55); RED CELL DISTRIBUTION WIDTH 14.4 % (11.5-14.0); SEGMENTED NEUTROPHILS % (AUTO) 77.3 % (42-78)
[2017-06-08] MEDS ORDERED: ERTAPENEM SODIUM INJ 1 GM VIAL IV SCH (10:00)
[2017-06-08] MEDS ORDERED: DAPTOMYCIN INJ 500 MG VIAL IV SCH (10:00)
[2017-06-08] MEDS ORDERED: ALPRAZOLAM 0.5 MG TABLET PO PRN (10:04)
--- NOTE | 2017-06-08 10:12 | PDOC PROGRESS REPORT ---
Subjective Progress Note for:: 06/08/17 Subjective:: Patient underwent debridement yesterday by surgery. Patient felt slightly improved today. Still with significant pain. No reported nausea or vomiting, diarrhea, chills or fever. No PND orthopnea. No reported agitation or restlessness. Physical Exam Vital Signs: Temp Pulse Resp BP Pulse Ox 98.7 F 92 18 141/82 H 99 06/08/17 08:47 06/08/17 08:47 06/08/17 08:47 06/08/17 08:47 06/08/17 08:47 Intake & Output 06/07/17 06/08/17 06/09/17 06:59 06:59 06:59 Weight 115.4 kg General appearance: PRESENT: no acute distress, morbidly obese Head exam: PRESENT: normocephalic Eye exam: PRESENT: EOMI Mouth exam: PRESENT: moist, neck supple Neck exam: ABSENT: JVD Respiratory exam: PRESENT: clear to auscultation vanessa Cardiovascular exam: PRESENT: RRR. ABSENT: gallop GI/Abdominal exam: PRESENT: soft. ABSENT: distended - Obese Extremities exam: PRESENT: pedal edema - Bilateral, other - Dressing both feet minimal dry sanguinous drainage Neurological exam: PRESENT: alert, awake, oriented to situation Skin exam: PRESENT: cyanosis, dry, warm Results Laboratory Results: 06/08/17 05:20 06/08/17 05:20 06/08/17 06/08/17 05:20 05:20 WBC 11.0 H RBC 3.14 L Hgb 9.0 L Hct 26.3 L MCV 84 MCH 28.5 MCHC 34.1 RDW 14.4 H Plt Count 178 Seg Neutrophils % 77.3 Lymphocytes % 9.0 L Monocytes % 11.2 Eosinophils % 1.8 Basophils % 0.7 Absolute Neutrophils 8.5 H Absolute Lymphocytes 1.0 Absolute Monocytes 1.2 Absolute Eosinophils 0.2 Absolute Basophils 0.1 Sodium 134.9 L Potassium 5.0 Chloride 104 Carbon Dioxide 21 L Anion Gap 10 BUN 25 H Creatinine 1.79 H Est GFR ( Amer) 49 L Est GFR (Non-Af Amer) 41 L Glucose 187 H Calcium 8.3 L Impressions: Foot X-Ray 06/07/17 09:18 IMPRESSION: No acute findings. Assessment & Plan - Diagnosis (1) Cellulitis in diabetic foot Is this a current diagnosis for this admission?: Yes (2) Necrotic toes Is this a current diagnosis for this admission?: Yes (3) Osteomyelitis of left foot Qualifiers: Osteomyelitis type: subacute Qualified Code(s): M86.272 - Subacute osteomyelitis, left ankle and foot Is this a current diagnosis for this admission?: Yes (4) Hyperkalemia Is this a current diagnosis for this admission?: Yes (5) Anemia of chronic disease Is this a current diagnosis for this admission?: Yes (6) Diabetes Qualifiers: Diabetes mellitus type: type 2 Diabetes mellitus complication detail: with polyneuropathy 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 insulin use: with residential use Qualified Code(s): E11.42 - Type 2 diabetes mellitus with diabetic polyneuropathy; Z79.4 - jail (current) use of insulin Is this a current diagnosis for this admission?: Yes (7) HIV (human immunodeficiency virus infection) Is this a current diagnosis for this admission?: Yes (8) CKD (chronic kidney disease), stage III Is this a current diagnosis for this admission?: Yes (9) Anxiety and depression Is this a current diagnosis for this admission?: Yes (10) Coronary artery disease Qualifiers: Coronary Disease-Associated Artery/Lesion type: [place] artery [place] vs. transplanted heart: [place] heart Associated angina: without angina Qualified Code(s): I25.10 - Atherosclerotic heart disease of [place] coronary artery without angina pectoris Is this a current diagnosis for this admission?: Yes (11) Hypertension Qualifiers: Hypertension type: essential hypertension Qualified Code(s): I10 - Essential (primary) hypertension Is this a current diagnosis for this admission?: Yes (12) Infestation by bed bug Is this a current diagnosis for this admission?: Yes (13) Peripheral vascular disease Is this a current diagnosis for this admission?: Yes (14) Bipolar disorder Qualifiers: Active/Remission status: remission status unspecified Qualified Code (s): F31.9 - Bipolar disorder, unspecified Is this a current diagnosis for this admission?: Yes (15) PTSD (post-traumatic stress disorder) Is this a current diagnosis for this admission?: Yes (16) COPD (chronic obstructive pulmonary disease) Qualifiers: COPD type: unspecified COPD Qualified Code(s): J44.9 - Chronic obstructive pulmonary disease, unspecified Is this a current diagnosis for this admission?: Yes (17) Seizure Is this a current diagnosis for this admission?: Yes (18) History of pulmonary embolism Is this a current diagnosis for this admission?: Yes - Time Time Spent with patient: 25-34 minutes - Plan Summary Plan Summary: We are going to continue current current antibiotics. Follow cultures. His blood cultures growing gram-negative rods. Appreciate surgery help. We will add intravenous analgesics for pain control. Continue supportive care. Resume antihypertensive medications and psych medications.
[2017-06-08] MEDS ORDERED: FLUOXETINE HCL 20 MG CAPSULE PO ONE (11:00)
[2017-06-08] MEDS ORDERED: CLONIDINE HCL 0.1 MG TABLET PO ONE (11:00)
[2017-06-08] MEDS ORDERED: GABAPENTIN 400 MG CAPSULE PO ONE (11:00)
[2017-06-08] MEDS ORDERED: ARIPIPRAZOLE 5 MG TABLET PO ONE (11:00)
[2017-06-08] MEDS ORDERED: ONDANSETRON HCL INJ/PF 4 MG/2 ML SDV IV PRN ×2 (13:29→16:19)
[2017-06-08] MEDS: DOCUSATE SODIUM 100 MG CAPSULE PO SCH ×2 (13:47→20:06)
[2017-06-08] MEDS: ENOXAPARIN SODIUM INJ 40 MG/0.4 ML DISP.SYRIN SUBCUT SCH (13:50)
--- NOTE | 2017-06-08 13:50 | PDOC PROGRESS REPORT ---
Subjective Progress Note for:: 06/08/17 Subjective:: Patient complaining of pain in the base of his right great toe. Physical Exam Vital Signs: Temp Pulse Resp BP Pulse Ox 98.4 F 90 18 132/76 H 100 06/08/17 12:03 06/08/17 12:03 06/08/17 12:03 06/08/17 12:03 06/08/17 12:03 Intake & Output 06/07/17 06/08/17 06/09/17 06:59 06:59 06:59 Intake Total 480 Output Total 700 Balance -220 Weight 115.4 kg Extremities exam: PRESENT: other - Right foot examined. Right great toe dorsal surface has a purulent discharge coming from the distal phalanx There is tenderness at the base of the right great toe. Results Laboratory Results: 06/08/17 05:20 06/08/17 05:20 06/08/17 06/08/17 05:20 05:20 WBC 11.0 H RBC 3.14 L Hgb 9.0 L Hct 26.3 L MCV 84 MCH 28.5 MCHC 34.1 RDW 14.4 H Plt Count 178 Seg Neutrophils % 77.3 Lymphocytes % 9.0 L Monocytes % 11.2 Eosinophils % 1.8 Basophils % 0.7 Absolute Neutrophils 8.5 H Absolute Lymphocytes 1.0 Absolute Monocytes 1.2 Absolute Eosinophils 0.2 Absolute Basophils 0.1 Sodium 134.9 L Potassium 5.0 Chloride 104 Carbon Dioxide 21 L Anion Gap 10 BUN 25 H Creatinine 1.79 H Est GFR ( Amer) 49 L Est GFR (Non-Af Amer) 41 L Glucose 187 H Calcium 8.3 L Impressions: Foot X-Ray 06/07/17 09:18 IMPRESSION: No acute findings. Assessment & Plan - Diagnosis (1) Cellulitis in diabetic foot Is this a current diagnosis for this admission?: YesPlan: Threatened right great toe status post limited debridement; undrained pus, persisting pain Recommendations: 1. Keep patient n.p.o., take to the operating room for right great toe debridement likely amputation. 2. This was explained to the patient. I believe he understands and agrees to proceed.
[2017-06-08] MEDS ORDERED: FENTANYL CITRATE INJ/PF 100 MCG/2 ML AMPUL ONE (14:40)
[2017-06-08] MEDS ORDERED: MIDAZOLAM 2 MG/2 ML INJ ONE (14:40)
[2017-06-08] MEDS ORDERED: PROPOFOL INJ 200 MG/20 ML VIAL IV ONE (14:40)
[2017-06-08] MEDS ORDERED: LIDOCAINE 1% INJ-PF (10 MG/ML) 30 ML SDV ONE (14:51)
[2017-06-08] MEDS ORDERED: LIDOCAINE 1% INJ-PF (10 MG/ML) 30 ML SDV INJ ONE (15:30)
--- NOTE | 2017-06-08 16:02 | Operative Report ---
Operative Report DATE OF SURGERY: 06/08/17 PREOPERATIVE DIAGNOSIS: Septic right great toe. Diabetes mellitus POSTOPERATIVE DIAGNOSIS: Same OPERATION: Right great toe amputation, and treatment of right first metatarsal head SURGEON: ANTONIO JOHNSON ANESTHESIA: LMAC TISSUE REMOVED OR ALTERED: Right great toe and bone fragments COMPLICATIONS: None ESTIMATED BLOOD LOSS: 40 cc INTRAOPERATIVE FINDINGS: See below PROCEDURE: The patient was taken to the preop holding area the main operating room where LMAC anesthesia was induced. Right foot was exposed, prepped draped sterile fashion. Surgical plan and surgical timeout were conducted. The the first toe webspace on the right side was anesthetized with 1% lidocaine plain. The toe was amputated at the webspace by incising the skin with knife, subcutaneous tissue and tendons divided as encountered with electrocautery. The first and second phalanxes were removed. The toe was transected from the tendons posteriorly passed off to pathology. Garcia were used to minimally debride the first metatarsal head of cartilage and down to the medullary bone such that a reasonably smooth contour was achieved. Wound cultures from the first phalanx were obtained. The wound cavity was irrigated briskly with saline. The medial digital artery was oversewn several times with 3-0 Vicryl suture. Because of the contamination, yet reasonably viable skin flaps, I elected to proceed with a delayed primary closure approach. 4 interrupted 3 oh vertical mattress sutures of Ethilon were placed in the posterior and anterior skin flaps. The cavity created from the amputation was packed with Xeroform packing. 4 x 4's Kerlix Rocky wrap all applied to the right foot. Patient on procedure well.
[2017-06-08] MEDS: FENTANYL CITRATE INJ/PF 100 MCG/2 ML AMPUL ONE ×2 (16:05→16:10)
[2017-06-08] MEDS ORDERED: FENTANYL CITRATE INJ/PF 100 MCG/2 ML AMPUL IV PRN ×3 (16:19)
[2017-06-08] MEDS ORDERED: MORPHINE SULFATE 10 MG/ML INJ IV PRN (16:19)
[2017-06-08] MEDS ORDERED: PROMETHAZINE HCL INJ 25 MG/1 ML VIAL IV PRN ×2 (16:19)
[2017-06-08] MEDS ORDERED: OXYCODONE-ACETAMINOPHEN 5-325 MG TABLET PO PRN ×2 (16:19)
[2017-06-08] MEDS ORDERED: DIPHENHYDRAMINE HCL 50 MG/ML VIAL IV PRN (16:19)
[2017-06-08] MEDS ORDERED: MEPERIDINE HCL/PF INJ 25 MG/1 ML DISP.SYRIN IV PRN (16:19)
[2017-06-08] MEDS: HYDRALAZINE HCL 50 MG TABLET PO SCH ×2 (19:31→21:54)
[2017-06-08] MEDS: DAPTOMYCIN IV SCH (19:31)
[2017-06-08] MEDS: NORMAL SALINE IV SCH (19:31)
[2017-06-08] MEDS: ERTAPENEM SODIUM 1 GM in NORMAL SALINE 50 ML IV SCH (20:02)
[2017-06-08] MEDS: CLONIDINE HCL 0.1 MG TABLET PO SCH (21:54)
[2017-06-08] MEDS: GABAPENTIN 400 MG CAPSULE PO SCH (21:55)
[2017-06-08] MEDS: INSULIN REG, HUMAN 100 UNIT/ML 3 ML VIAL (PYX) SUBCUT PRN (21:56)
[2017-06-08] MEDS ORDERED: GABAPENTIN 100 MG CAPSULE PO SCH (22:00)
[2017-06-09] MEDS: OXYCODONE-ACETAMINOPHEN 5-325 MG TABLET PO PRN ×4 (02:58→18:31)
[2017-06-09] MEDS: HYDRALAZINE HCL 50 MG TABLET PO SCH ×3 (05:17→21:45)
[2017-06-09] MEDS: LANSOPRAZOLE 30 MG TAB.RAP.DR PO SCH (05:17)
[2017-06-09 07:05] LABS: ANION GAP 11 (5-19); BLOOD UREA NITROGEN 17 mg/dL (7-20); CALCIUM 8.4 mg/dL (8.4-10.2); CARBON DIOXIDE 20 mmol/L (22-30); CHLORIDE 104 mmol/L (98-107); CREATININE RESULT 1.16 mg/dL (0.52-1.25); GLUCOSE 303 mg/dL (75-110); SODIUM 134.9 mmol/L (137-145)
[2017-06-09 07:08] LABS: POTASSIUM 4.9 mmol/L (3.6-5.0)
[2017-06-09] MEDS: GABAPENTIN 400 MG CAPSULE PO SCH ×2 (10:30→21:45)
[2017-06-09] MEDS: FLUOXETINE HCL 20 MG CAPSULE PO SCH (10:30)
[2017-06-09] MEDS: DOCUSATE SODIUM 100 MG CAPSULE PO SCH ×2 (10:31→17:16)
[2017-06-09] MEDS: CLONIDINE HCL 0.1 MG TABLET PO SCH ×2 (10:31→21:46)
[2017-06-09] MEDS: ARIPIPRAZOLE 5 MG TABLET PO SCH (10:31)
[2017-06-09] MEDS: ENOXAPARIN SODIUM INJ 40 MG/0.4 ML DISP.SYRIN SUBCUT SCH (10:32)
--- NOTE | 2017-06-09 10:33 | PROGRESS NOTE E ---
Progress Note NAME: MILADYS LONDON : 1970 AGE: 46Y DATE: 06/09/2017 ROOM: 406 SUBJECTIVE: Patient is postop day number one post right great toe amputation of the right first metatarsal head. The right foot dressing is dry with slightly blood-tinged discoloration. The right toes are warm. PLAN: The plan is to evaluate the wound in the morning and possibly do a delayed primary closure at bedside if possible. DICTATING PHYSICIAN: BUD LAZO M.D. [id number] PHY#: [id number] ID: [id number] JOB#: [id number] ACCT: [id number] cc: >
[2017-06-09 10:58] LABS: HEMATOCRIT 26.4 % (37.9-51.0); HEMOGLOBIN 8.9 g/dL (13.5-17.0); HGB HCT DIFFERENCE 0.3; MEAN CORPUSCULAR HEMOGLOBIN 28.4 pg (27.0-33.4); MEAN CORPUSCULAR HGB CONC 33.8 g/dL (32.0-36.0); MEAN CORPUSCULAR VOLUME 84 fl (80-97); RED BLOOD COUNT 3.15 10^6/uL (4.35-5.55); RED CELL DISTRIBUTION WIDTH 14.5 % (11.5-14.0); WHITE BLOOD COUNT 10.2 10^3/uL (4.0-10.5)
[2017-06-09 11:21] LABS: BASOPHILS % (MANUAL) 0 % (0-2); EOSINOPHILS % (MANUAL) 1 % (0-6); LYMPHOCYTES % (MANUAL) 10 % (13-45); TOTAL CELLS COUNTED 100
[2017-06-09 11:24] LABS: ANISOCYTOSIS SLIGHT; TOXIC GRANULATION 1+
[2017-06-09] MEDS: INSULIN REG, HUMAN 100 UNIT/ML 3 ML VIAL (PYX) SUBCUT PRN ×3 (14:04→21:54)
--- NOTE | 2017-06-09 15:07 | PDOC PROGRESS REPORT ---
Subjective Progress Note for:: 06/09/17 Subjective:: complains of pain in foot in the surgical site Physical Exam Vital Signs: Temp Pulse Resp BP Pulse Ox 98.5 F 85 18 150/91 H 96 06/09/17 12:02 06/09/17 12:02 06/09/17 12:02 06/09/17 12:02 06/09/17 12:02 Intake & Output 06/08/17 06/09/17 06/10/17 06:59 06:59 06:59 Intake Total 4430 Output Total 2205 Balance 2225 Weight 115.4 kg 117.027 kg General appearance: PRESENT: no acute distress Eye exam: PRESENT: conjunctiva pink. ABSENT: scleral icterus Mouth exam: PRESENT: moist, tongue midline Neck exam: ABSENT: JVD Respiratory exam: PRESENT: clear to auscultation vanessa. ABSENT: rales, rhonchi, wheezes Cardiovascular exam: PRESENT: RRR. ABSENT: diastolic murmur, rubs, systolic murmur GI/Abdominal exam: PRESENT: normal bowel sounds, soft. ABSENT: distended, guarding, mass, organolmegaly, rebound, tenderness Extremities exam: PRESENT: other - dressing in place on the right foot. ABSENT : calf tenderness, clubbing Neurological exam: PRESENT: alert, awake, oriented to person, oriented to place , oriented to time, oriented to situation Psychiatric exam: PRESENT: anxious Skin exam: PRESENT: dry, warm, other - dressing in place on the foot. ABSENT: cyanosis, rash Results Laboratory Results: 06/09/17 05:58 06/09/17 05:58 06/09/17 06/09/17 05:58 05:58 WBC 10.2 RBC 3.15 L Hgb 8.9 L Hct 26.4 L MCV 84 MCH 28.4 MCHC 33.8 RDW 14.5 H Plt Count 221 Seg Neutrophils % Not Reportable Lymphocytes % Not Reportable Monocytes % Not Reportable Eosinophils % Not Reportable Basophils % Not Reportable Absolute Neutrophils Not Reportable Absolute Lymphocytes Not Reportable Absolute Monocytes Not Reportable Absolute Eosinophils Not Reportable Absolute Basophils Not Reportable Sodium 134.9 L Potassium 4.9 Chloride 104 Carbon Dioxide 20 L Anion Gap 11 BUN 17 Creatinine 1.16 Est GFR ( Amer) > 60 Est GFR (Non-Af Amer) > 60 Glucose 303 H Calcium 8.4 Impressions: Foot X-Ray 06/07/17 09:18 IMPRESSION: No acute findings. Assessment & Plan - Diagnosis (1) Necrotic toes Is this a current diagnosis for this admission?: YesPlan: has had amputation of right great toe (2) Anemia of chronic disease Is this a current diagnosis for this admission?: YesPlan: stable (3) COPD (chronic obstructive pulmonary disease) Qualifiers: COPD type: unspecified COPD Qualified Code(s): J44.9 - Chronic obstructive pulmonary disease, unspecified Is this a current diagnosis for this admission?: Yes (4) Diabetes Qualifiers: Diabetes mellitus type: type 2 Diabetes mellitus complication detail: with polyneuropathy Diabetes mellitus half-way insulin use: with half-way use Qualified Code(s): E11.42 - Type 2 diabetes mellitus with diabetic polyneuropathy; Z79.4 - 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 (current) use of insulin Is this a current diagnosis for this admission?: YesPlan: continue with sliding scale insulin (5) HIV (human immunodeficiency virus infection) Is this a current diagnosis for this admission?: YesPlan: continue antiretrovirals (6) Seizure Is this a current diagnosis for this admission?: YesPlan: no seizure activity (7) Sepsis Qualifiers: Sepsis type: sepsis due to unspecified organism Qualified Code(s): A41.9 - Sepsis, unspecified organism Is this a current diagnosis for this admission?: YesPlan: continue daptomycin and ertepenem (8) CKD (chronic kidney disease), stage III Is this a current diagnosis for this admission?: Yes (9) Coronary artery disease Qualifiers: Coronary Disease-Associated Artery/Lesion type: [place] artery [place] vs. transplanted heart: crow heart Associated angina: without angina Qualified Code(s): I25.10 - Atherosclerotic heart disease of crow coronary artery without angina pectoris Is this a current diagnosis for this admission?: Yes (10) Hypertension Qualifiers: Hypertension type: essential hypertension Qualified Code(s): I10 - Essential (primary) hypertension Is this a current diagnosis for this admission?: Yes (11) Peripheral vascular disease Is this a current diagnosis for this admission?: Yes (12) History of pulmonary embolism Is this a current diagnosis for this admission?: Yes (13) PTSD (post-traumatic stress disorder) Is this a current diagnosis for this admission?: Yes - Time Time Spent with patient: 25-34 minutes - Inpatient Certification Medical Necessity: Need Close Monitoring Due to Risk of Patient Decompensation, Need for IV Antibiotics
[2017-06-09] MEDS: NORMAL SALINE IV SCH (16:11)
[2017-06-09] MEDS: NORMAL SALINE 1000 ML 1,000 ML IV PRN (16:11)
[2017-06-09] MEDS: DAPTOMYCIN IV SCH (16:11)
--- NOTE | 2017-06-09 16:43 | PDOC CONSULTATION ---
Consultation Consult reason:: Work up for RTA IV History of Present Illness Admission Date/PCP: 06/07/17 13:09 ANGEL EVANS History of Present Illness: MILADYS LONDON III is a 46 year old male, with history of diabetes, HIV, peripheral vascular disease who is being treated for osteomyelitis of the left foot, has a line on the left upper extremity for IV infusion of daptomycin for osteomyelitis, presents to the emergency room because of fever of 1 day duration. A few days before being admit the patient had some trauma done to his right big toe. It then began to swell and got red. Shortly after it turned black and no purulent discharge. The right big toe was surgically removed with this hospital visit. He has noticed some drainage from his left big toe and has had fevers for one day prior to admission. The patient was recently discharged from the hospital about 12 days ago for hyperkalemia and acute kidney injury. Patient was on Kayexalate he has intermittent diarrhea from the Kayexalate. He is working better at staying on a low potassium diet. Past Medical History Cardiac Medical History: Reports: Coronary Artery Disease, Hyperlipidemia, Hypertension-primary, Myocardial Infarction, Peripheral Vascular Disease, Pulmonary Embolism Pulmonary Medical History: Reports: Asthma, Chronic Obstructive Pulmonary Disease (COPD), Pneumonia - 1 year ago Neurological Medical History: Reports: Seizures - 4 years ago; Depakote stopped by his physician. Endocrine Medical History: Reports: Diabetes Mellitus Type 1 Renal/ Medical History: Reports: Chronic Kidney Disease Stage III Malignancy Medical History: GI Medical History: Reports: Hepatitis Musculoskeltal Medical History: Reports: Arthritis Psychiatric Medical History: Reports: Bipolar Disorder, Depression, Post Traumatic Stress Disorder Infectious Medical History: Reports: HIV - Patient reports no detectable viral count, Methicillin-resist Staph Aureus Past Surgical History Past Surgical History: Reports: Orthopedic Surgery - right knee replacement, rt toe amputation; amputation 2 left toes., Other - Laser eye surgery PICC line placement, wound debridement Social History Smoking Status: Current Every Day Smoker Cigars Per Day: 0 Pipes Per Day: 0 Number of Years Smokin Last Time Smoked: 06/05/2017 Frequency of Alcohol Use: None Hx Recreational Drug Use: Yes Drugs: Cocaine, Marijuana Hx Prescription Drug Abuse: No - Advance Directive Resuscitation Status: Full Code Family History Family History: CAD Parental Family History Reviewed: No Children Family History Reviewed: No Sibling(s) Family History Reviewed.: No Medication/Allergy Home Medications: Alprazolam [Xanax] 2 mg PO BID 06/08/17 Amitriptyline HCl [Elavil 25 mg Tablet] 25 mg PO DAILY 06/08/17 Aripiprazole [Abilify] 20 mg PO QPM 06/08/17 Atenolol [Tenormin 100 mg Tablet] 100 mg PO DAILY 06/08/17 Clonidine HCl [Catapres 0.1 mg Tablet] 0.1 mg PO Q12 06/08/17 Cyclobenzaprine HCl [Flexeril 10 mg Tablet] 10 mg PO TIDP PRN 06/08/17 Daptomycin [Cubicin Inj 500 mg Vial] 720 mg IV DAILY 06/08/17 Diclofenac Sodium [Diclofenac Sodium ER] 100 mg PO DAILY 06/08/17 Emtricitab/Rilpiviri/Tenof Ala [Odefsey Tablet] 1 each PO DAILY 06/08/17 Ergocalciferol (Vitamin D2) [Drisdol 50,000 Unit (1.25MG) Capsule] 50,000 unit PO BARRON@1000 06/08/17 Fluoxetine HCl [Prozac] 40 mg PO DAILY 06/08/17 Fluticasone Propionate [Flonase Nasal [place] 50 Mcg/[place] 16 gm] 2 sprays NASL DAILY 06/08/17 Gabapentin [Neurontin 400 mg Capsule] 400 mg PO BID 06/08/17 Hydralazine HCl [Apresoline 50 mg Tablet] 50 mg PO Q8 06/08/17 Insulin Glargine,Hum.rec.anlog [Lantus Insulin 100 Unit/1 ml 10 ml] 45 unit SUBCUT QHS 06/08/17 Levocetirizine Dihydrochloride [Xyzal] 5 mg PO DAILYP PRN 06/08/17 Permethrin [Acticin 5% Cream 60 Gm Tube] 1 applic TP MO@2200 06/08/17 Prazosin HCl [Minipress] 1 mg PO QHS 06/08/17 Simvastatin [Zocor 20 mg Tablet] 20 mg PO QHS 06/08/17 Sodium Polystyrene Sulfon/Sorb [Sps] 30 gm PO MO@1000 06/08/17 Zolpidem Tartrate [Ambien] 15 mg PO HSP PRN 07/31/17 Allergies/Adverse Reactions: Penicillins Allergy (Verified 06/07/17 16:26) rash Review of Systems Constitutional: PRESENT: chills, fever(s), weakness Eyes: ABSENT: visual disturbances Ears: ABSENT: hearing changes Nose, Mouth, and Throat: ABSENT: headache(s) Cardiovascular: PRESENT: edema. ABSENT: chest pain, orthropnea Respiratory: PRESENT: cough. ABSENT: dyspnea Gastrointestinal: PRESENT: diarrhea, nausea. ABSENT: abdominal pain, constipation, vomiting Musculoskeletal: ABSENT: joint swelling Integumentary: PRESENT: wounds Neurological: PRESENT: abnormal gait Physical Exam Vital Signs: Temp Pulse Resp BP Pulse Ox 98.5 F 85 18 150/91 H 96 06/09/17 12:02 06/09/17 12:02 06/09/17 12:02 06/09/17 12:02 06/09/17 12:02 Intake & Output 06/08/17 06/09/17 06/10/17 06:59 06:59 06:59 Intake Total 4430 Output Total 2205 Balance 2225 Weight 115.4 kg 117.027 kg General appearance: PRESENT: no acute distress, morbidly obese Head exam: PRESENT: atraumatic Mouth exam: PRESENT: moist, neck supple Neck exam: PRESENT: full ROM. ABSENT: carotid bruit, JVD, lymphadenopathy, thyromegaly Respiratory exam: PRESENT: clear to auscultation vanessa. ABSENT: accessory muscle use, chest wall tenderness, crackles, rales, rhonchi Cardiovascular exam: PRESENT: RRR, +S1, +S2 Vascular exam: PRESENT: normal capillary refill GI/Abdominal exam: PRESENT: normal bowel sounds, soft. ABSENT: ascites, diminished bowel sounds, guarding, tenderness Extremities exam: PRESENT: +1 edema. ABSENT: joint swelling Musculoskeletal exam: PRESENT: other - -area where right big toe was wrapped in guaze after sugery Skin exam: PRESENT: erythema - right toes, warm Results Laboratory Results: 06/09/17 05:58 06/09/17 05:58 06/09/17 06/09/17 05:58 05:58 WBC 10.2 RBC 3.15 L Hgb 8.9 L Hct 26.4 L MCV 84 MCH 28.4 MCHC 33.8 RDW 14.5 H Plt Count 221 Seg Neutrophils % Not Reportable Lymphocytes % Not Reportable Monocytes % Not Reportable Eosinophils % Not Reportable Basophils % Not Reportable Absolute Neutrophils Not Reportable Absolute Lymphocytes Not Reportable Absolute Monocytes Not Reportable Absolute Eosinophils Not Reportable Absolute Basophils Not Reportable Sodium 134.9 L Potassium 4.9 Chloride 104 Carbon Dioxide 20 L Anion Gap 11 BUN 17 Creatinine 1.16 Est GFR ( Amer) > 60 Est GFR (Non-Af Amer) > 60 Glucose 303 H Calcium 8.4 Impressions: Foot X-Ray 06/07/17 09:18 IMPRESSION: No acute findings. Assessment & Plan - Diagnosis (1) CKD (chronic kidney disease) Qualifiers: Chronic kidney disease stage: stage 3 (moderate) Qualified Code(s): N18.3 - Chronic kidney disease, stage 3 (moderate) Plan: looks to be low from dilution, will give lasix and see what the creatinine is once some fluid is removed. 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 Potassiums are almost chronically elevated, has mild non-anion gap metabolic acidosis. Will start sodium bicarbonate 650 qd. Will also do a work up for hypoaldosteronism to see if this underlining cause. (3) Metabolic acidosis Plan: Will start bicarb 650mg qd (4) COPD (chronic obstructive pulmonary disease) Qualifiers: COPD type: unspecified COPD Qualified Code(s): J44.9 - Chronic obstructive pulmonary disease, unspecified Is this a current diagnosis for this admission?: Yes (5) Cellulitis in diabetic foot Is this a current diagnosis for this admission?: YesPlan: currently on IV infusion daptomycin, continue antibiotics (6) Diabetes Qualifiers: Diabetes mellitus type: type 2 Diabetes mellitus complication detail: with polyneuropathy Diabetes mellitus assisted insulin use: with assisted use Qualified Code(s): E11.42 - Type 2 diabetes mellitus with diabetic polyneuropathy; 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 Had recent right big toe amputation-looks to be recovering well from surgery. (9) Anemia Plan: anemic due to surgery- previously in the office on 05/25 he had a normal iron panel. Will observe hemoglobin and see if it starts to go up after having the surgery.
[2017-06-09] MEDS: ERTAPENEM SODIUM 1 GM in NORMAL SALINE 50 ML IV SCH (17:16)
[2017-06-10] MEDS: OXYCODONE-ACETAMINOPHEN 5-325 MG TABLET PO PRN ×3 (01:32→22:56)
[2017-06-10] MEDS: NORMAL SALINE 1000 ML 1,000 ML IV PRN (02:33)
[2017-06-10] MEDS: LANSOPRAZOLE 30 MG TAB.RAP.DR PO SCH (05:35)
[2017-06-10] MEDS: HYDRALAZINE HCL 50 MG TABLET PO SCH ×3 (06:48→22:57)
[2017-06-10 08:07] LABS: ABSOLUTE BASOPHILS # (AUTO) 0.1 10^3/uL (0.0-0.2); ABSOLUTE EOSINOPHILS # (AUTO) 0.2 10^3/uL (0.0-0.6); ABSOLUTE LYMPHOCYTES (AUTO) 1.4 10^3/uL (0.5-4.7); ABSOLUTE MONOCYTES (AUTO) 1.3 10^3/uL (0.1-1.4); ABSOLUTE NEUT (AUTO) 6.3 10^3/uL (1.7-8.2); BASOPHILS % (AUTO) 0.8 % (0-2); EOSINOPHILS % (AUTO) 1.8 % (0-6); HEMATOCRIT 28.2 % (37.9-51.0); HEMOGLOBIN 9.5 g/dL (13.5-17.0); HGB HCT DIFFERENCE 0.3; LYMPHOCYTES % (AUTO) 15.4 % (13-45); MEAN CORPUSCULAR HEMOGLOBIN 28.4 pg (27.0-33.4); MEAN CORPUSCULAR HGB CONC 33.7 g/dL (32.0-36.0); MEAN CORPUSCULAR VOLUME 84 fl (80-97); MONOCYTES % (AUTO) 13.7 % (3-13); RED BLOOD COUNT 3.35 10^6/uL (4.35-5.55); RED CELL DISTRIBUTION WIDTH 14.3 % (11.5-14.0); SEGMENTED NEUTROPHILS % (AUTO) 68.3 % (42-78); WHITE BLOOD COUNT 9.2 10^3/uL (4.0-10.5)
[2017-06-10 08:24] LABS: ANION GAP 10 (5-19); BLOOD UREA NITROGEN 13 mg/dL (7-20); CALCIUM 8.8 mg/dL (8.4-10.2); CARBON DIOXIDE 23 mmol/L (22-30); CHLORIDE 102 mmol/L (98-107); CREATININE RESULT 1.08 mg/dL (0.52-1.25); GLUCOSE 203 mg/dL (75-110); POTASSIUM 4.8 mmol/L (3.6-5.0); SODIUM 134.8 mmol/L (137-145)
[2017-06-10] MEDS ORDERED: LIDOCAINE 1% INJ-PF (10 MG/ML) 30 ML SDV INJ PRN (08:38)
[2017-06-10] MEDS ORDERED: ALBUTEROL SULFATE 0.083% NEB 2.5 MG/3 ML AMPUL NEB PRN (09:57)
--- NOTE | 2017-06-10 10:08 | OPERATIVE REPORT E ---
Operative Report NAME: MILADYS LONDON : 1970 AGE: 46Y DATE OF SURGERY: 06/10/2017 ROOM: 406 PREOPERATIVE DIAGNOSIS: Post great toe amputation and first metatarsal head removal done 06/08/[address] Fry with the wound left open for delayed primary closure today. POSTOPERATIVE DIAGNOSIS: Post great toe amputation and first metatarsal head removal done 06/08/[address] Fry with the wound left open for delayed primary closure today. PROCEDURE: Delayed primary closure of right great toe amputation. SURGEON: BUD LAZO M.D. ANESTHESIA: Local. INDICATIONS: This is a 46-year-old -[place] male who had an infected right great toe and underwent right great toe amputation and right first metatarsal head amputation by Dr. Fry on 06/08/2017. The wound was left open and packed with Xeroform gauze. PROCEDURE: Today the packing was removed and the wound looked clean and dry. The previously placed sutures that were 3-0 nylon were then tied. There were about 4 sutures left. However, there were at least 2 areas that were not approximating well and there appeared to be some more space underneath. Because of this the area which was previously prepped with Betadine solution was then anesthetized with 1% Xylocaine. A 2-0 nylon suture was then placed, simple sutures quite deeper than the previous sutures, in 3 areas of the wound. The wound appeared to be viable with pink tissues and the skin better approximated. A sterile dressing was then placed over the operative site using 4 x 4s, Sam and sterile Rocky bandage. The patient tolerated the procedure well. DICTATING PHYSICIAN: BUD LAZO M.D. [id number] PHY#: [id number] ID: [id number] JOB#: [id number] ACCT: [id number] cc:BUD LAZO M.D. >
[2017-06-10] MEDS: SODIUM BICARBONATE 650 MG TABLET PO SCH (10:54)
[2017-06-10] MEDS: FUROSEMIDE 20 MG TABLET PO SCH (10:55)
[2017-06-10] MEDS: FLUOXETINE HCL 20 MG CAPSULE PO SCH (10:55)
[2017-06-10] MEDS: CLONIDINE HCL 0.1 MG TABLET PO SCH ×2 (10:56→22:57)
[2017-06-10] MEDS: DOCUSATE SODIUM 100 MG CAPSULE PO SCH ×2 (10:56→18:27)
[2017-06-10] MEDS: ARIPIPRAZOLE 5 MG TABLET PO SCH (10:56)
[2017-06-10] MEDS: GABAPENTIN 400 MG CAPSULE PO SCH ×2 (10:56→22:57)
[2017-06-10] MEDS: ENOXAPARIN SODIUM INJ 40 MG/0.4 ML DISP.SYRIN SUBCUT SCH (10:58)
[2017-06-10] MEDS: INSULIN REG, HUMAN 100 UNIT/ML 3 ML VIAL (PYX) SUBCUT PRN ×3 (14:16→22:56)
[2017-06-10] MEDS ORDERED: HYDROMORPHONE HCL 2 MG TABLET PO PRN (14:18)
--- NOTE | 2017-06-10 14:22 | PDOC PROGRESS REPORT ---
Subjective Progress Note for:: 06/10/17 Subjective:: complains of pain in foot in the surgical site Physical Exam Vital Signs: Temp Pulse Resp BP Pulse Ox 99.1 F 87 20 170/103 H 94 06/10/17 11:50 06/10/17 11:50 06/10/17 11:50 06/10/17 11:50 06/10/17 11:50 Intake & Output 06/09/17 06/10/17 06/11/17 06:59 06:59 06:59 Intake Total 4430 745 Output Total 2205 1250 Balance 2225 -505 Weight 117.027 kg 117 kg General appearance: PRESENT: no acute distress Eye exam: PRESENT: conjunctiva pink. ABSENT: scleral icterus Mouth exam: PRESENT: moist, tongue midline Neck exam: ABSENT: JVD Respiratory exam: PRESENT: clear to auscultation vanessa. ABSENT: rales, rhonchi, wheezes Cardiovascular exam: PRESENT: RRR. ABSENT: diastolic murmur, rubs, systolic murmur GI/Abdominal exam: PRESENT: normal bowel sounds, soft. ABSENT: distended, guarding, mass, organolmegaly, rebound, tenderness Extremities exam: ABSENT: calf tenderness, clubbing, pedal edema Neurological exam: PRESENT: alert, awake, oriented to person, oriented to place , oriented to time, oriented to situation, CN II-XII grossly intact. ABSENT: motor sensory deficit Psychiatric exam: PRESENT: appropriate affect Skin exam: PRESENT: other - Dressing in place on the right foot Results Laboratory Results: 06/10/17 07:57 06/10/17 07:57 06/10/17 06/10/17 07:57 07:57 WBC 9.2 RBC 3.35 L Hgb 9.5 L Hct 28.2 L MCV 84 MCH 28.4 MCHC 33.7 RDW 14.3 H Plt Count 297 Seg Neutrophils % 68.3 Lymphocytes % 15.4 Monocytes % 13.7 H Eosinophils % 1.8 Basophils % 0.8 Absolute Neutrophils 6.3 Absolute Lymphocytes 1.4 Absolute Monocytes 1.3 Absolute Eosinophils 0.2 Absolute Basophils 0.1 Sodium 134.8 L Potassium 4.8 Chloride 102 Carbon Dioxide 23 Anion Gap 10 BUN 13 Creatinine 1.08 Est GFR ( Amer) > 60 Est GFR (Non-Af Amer) > 60 Glucose 203 H Calcium 8.8 Impressions: Foot X-Ray 06/07/17 09:18 IMPRESSION: No acute findings. 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 insulin use: with skilled nursing use Qualified Code(s): E11.42 - Type 2 diabetes mellitus with diabetic polyneuropathy; Z79.4 - penitentiary (current) use of insulin Is this a current diagnosis for this admission?: YesPlan: continue with sliding scale insulin (5) HIV (human immunodeficiency virus infection) Is this a current diagnosis for this admission?: YesPlan: continue antiretrovirals (6) Seizure Is this a current diagnosis for this admission?: YesPlan: no seizure activity (7) Sepsis Qualifiers: Sepsis type: sepsis due to unspecified organism Qualified Code(s): A41.9 - Sepsis, unspecified organism Is this a current diagnosis for this admission?: YesPlan: continue daptomycin and ertepenem (8) CKD (chronic kidney disease), stage III Is this a current diagnosis for this admission?: Yes (9) Coronary artery disease Qualifiers: Coronary Disease-Associated Artery/Lesion type: [place] artery [place] vs. transplanted heart: [place] heart Associated angina: without angina Qualified Code(s): I25.10 - Atherosclerotic heart disease of [place] coronary artery without angina pectoris Is this a current diagnosis for this admission?: Yes (10) Hypertension Qualifiers: Hypertension type: essential hypertension Qualified Code(s): I10 - Essential (primary) hypertension Is this a current diagnosis for this admission?: Yes (11) Peripheral vascular disease Is this a current diagnosis for this admission?: Yes (12) History of pulmonary embolism Is this a current diagnosis for this admission?: Yes (13) PTSD (post-traumatic stress disorder) Is this a current diagnosis for this admission?: Yes - Time Time Spent with patient: 25-34 minutes - Inpatient Certification Medical Necessity: Need for IV Antibiotics
[2017-06-10] MEDS: DAPTOMYCIN IV SCH (16:46)
[2017-06-10] MEDS: NORMAL SALINE IV SCH (16:46)
[2017-06-10] MEDS: ERTAPENEM SODIUM 1 GM in NORMAL SALINE 50 ML IV SCH (18:28)
--- NOTE | 2017-06-10 21:23 | PDOC PROGRESS REPORT ---
Subjective Progress Note for:: 06/10/17 Subjective:: Patient is laying in bed in pain due to his foot and some diffuse abdominal tenderness. He stated that he has not had a bowel movement since the day before he came to the hospital. He is nauseas, but has not vomited. Appetite is okay. Pain started on this morning. It feels like a sharp pain. Physical Exam Vital Signs: Temp Pulse Resp BP Pulse Ox 99.1 F 87 20 170/103 H 94 06/10/17 11:50 06/10/17 16:26 06/10/17 16:26 06/10/17 11:50 06/10/17 16:26 Intake & Output 06/09/17 06/10/17 06/11/17 06:59 06:59 06:59 Intake Total 4430 745 1666 Output Total 2205 1250 Balance 2225 -505 1666 Weight 117.027 kg 117 kg General appearance: PRESENT: mild distress, well-developed, well-nourished Head exam: PRESENT: atraumatic Mouth exam: PRESENT: moist, neck supple Neck exam: PRESENT: full ROM. ABSENT: JVD Respiratory exam: PRESENT: chest wall tenderness - -referred from the abdominal area, clear to auscultation vanessa. ABSENT: accessory muscle use, crackles, rales , rhonchi Cardiovascular exam: PRESENT: RRR, +S1, +S2 GI/Abdominal exam: PRESENT: guarding, hypoactive bowel sounds, soft. ABSENT: ascites, diminished bowel sounds, distended, firm, rigid, tenderness Neurological exam: PRESENT: alert, awake, oriented to person, oriented to place , oriented to time, oriented to situation, CN II-XII grossly intact. ABSENT: motor sensory deficit Skin exam: PRESENT: dry, intact, warm. ABSENT: cyanosis, rash Results Laboratory Results: 06/10/17 07:57 06/10/17 07:57 06/10/17 06/10/17 07:57 07:57 WBC 9.2 RBC 3.35 L Hgb 9.5 L Hct 28.2 L MCV 84 MCH 28.4 MCHC 33.7 RDW 14.3 H Plt Count 297 Seg Neutrophils % 68.3 Lymphocytes % 15.4 Monocytes % 13.7 H Eosinophils % 1.8 Basophils % 0.8 Absolute Neutrophils 6.3 Absolute Lymphocytes 1.4 Absolute Monocytes 1.3 Absolute Eosinophils 0.2 Absolute Basophils 0.1 Sodium 134.8 L Potassium 4.8 Chloride 102 Carbon Dioxide 23 Anion Gap 10 BUN 13 Creatinine 1.08 Est GFR ( Amer) > 60 Est GFR (Non-Af Amer) > 60 Glucose 203 H Calcium 8.8 Impressions: Foot X-Ray 06/07/17 09:18 IMPRESSION: No acute findings. Assessment & Plan - Diagnosis (1) CKD (chronic kidney disease) Qualifiers: Chronic kidney disease stage: stage 3 (moderate) Qualified Code(s): N18.3 - Chronic kidney disease, stage 3 (moderate) Plan: Creatinine looks to be remaining stable (2) RTA (renal tubular acidosis) Plan: Improving on bicarb, potassiums are stable (3) Metabolic acidosis Plan: at 23 and improving with bicarb qd (4) COPD (chronic obstructive pulmonary disease) Qualifiers: COPD type: unspecified COPD Qualified Code(s): J44.9 - Chronic obstructive pulmonary disease, unspecified Is this a current diagnosis for this admission?: YesPlan: stable (5) Cellulitis in diabetic foot Is this a current diagnosis for this admission?: YesPlan: currently on IV infusion daptomycin, continue antibiotics (6) Diabetes Qualifiers: Diabetes mellitus type: type 2 Diabetes mellitus complication detail: with polyneuropathy 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 recommend starting stool softener and a soap enema (11) Edema Plan: continue on lasix 20mg qd - Notes Notes: At this point patient is stable from nephrology standpoint. Will be signing off on this patient. Please feel free to contact nephrology if need.
[2017-06-11 04:59] LABS: ABSOLUTE EOSINOPHILS # (AUTO) 0.2 10^3/uL (0.0-0.6); ABSOLUTE LYMPHOCYTES (AUTO) 1.6 10^3/uL (0.5-4.7); ABSOLUTE MONOCYTES (AUTO) 1.3 10^3/uL (0.1-1.4); ABSOLUTE NEUT (AUTO) 4.9 10^3/uL (1.7-8.2); BASOPHILS % (AUTO) 0.3 % (0-2); EOSINOPHILS % (AUTO) 2.7 % (0-6); HEMATOCRIT 26.9 % (37.9-51.0); HGB HCT DIFFERENCE 0.1; LYMPHOCYTES % (AUTO) 19.4 % (13-45); MEAN CORPUSCULAR HEMOGLOBIN 28.4 pg (27.0-33.4); MEAN CORPUSCULAR HGB CONC 33.5 g/dL (32.0-36.0); MEAN CORPUSCULAR VOLUME 85 fl (80-97); MONOCYTES % (AUTO) 16.1 % (3-13); RED BLOOD COUNT 3.18 10^6/uL (4.35-5.55); RED CELL DISTRIBUTION WIDTH 14.5 % (11.5-14.0); SEGMENTED NEUTROPHILS % (AUTO) 61.5 % (42-78)
[2017-06-11 05:15] LABS: ANION GAP 11 (5-19); BLOOD UREA NITROGEN 16 mg/dL (7-20); CALCIUM 8.6 mg/dL (8.4-10.2); CARBON DIOXIDE 24 mmol/L (22-30); CHLORIDE 100 mmol/L (98-107); CREATININE RESULT 1.06 mg/dL (0.52-1.25); GLUCOSE 308 mg/dL (75-110); POTASSIUM 4.8 mmol/L (3.6-5.0); SODIUM 134.9 mmol/L (137-145)
[2017-06-11] MEDS: ACETAMINOPHEN 325 MG TABLET PO PRN ×3 (05:38→21:57)
[2017-06-11] MEDS: LANSOPRAZOLE 30 MG TAB.RAP.DR PO SCH (05:39)
[2017-06-11] MEDS: HYDRALAZINE HCL 50 MG TABLET PO SCH ×3 (05:39→21:57)
[2017-06-11] MEDS: NORMAL SALINE 1000 ML 1,000 ML IV PRN ×2 (06:07→13:54)
[2017-06-11] MEDS: INSULIN REG, HUMAN 100 UNIT/ML 3 ML VIAL (PYX) SUBCUT PRN ×4 (08:07→21:57)
--- NOTE | 2017-06-11 09:15 | PDOC PROGRESS REPORT ---
Subjective Progress Note for:: 06/11/17 Subjective:: No Complaints Physical Exam Vital Signs: Temp Pulse Resp BP Pulse Ox 98.3 F 81 16 167/94 H 96 06/11/17 08:01 06/11/17 08:20 06/11/17 08:20 06/11/17 08:01 06/11/17 08:20 Intake & Output 06/10/17 06/11/17 06/12/17 06:59 06:59 06:59 Intake Total 745 1901 Output Total 1250 845 Balance -505 1056 Weight 117 kg 117 kg Extremities exam: PRESENT: other - Toe amputation site clean no erythema no drainage Results Laboratory Results: 06/11/17 04:10 06/11/17 04:10 06/11/17 06/11/17 04:10 04:10 WBC 8.0 RBC 3.18 L Hgb 9.0 L Hct 26.9 L MCV 85 MCH 28.4 MCHC 33.5 RDW 14.5 H Plt Count 320 Seg Neutrophils % 61.5 Lymphocytes % 19.4 Monocytes % 16.1 H Eosinophils % 2.7 Basophils % 0.3 Absolute Neutrophils 4.9 Absolute Lymphocytes 1.6 Absolute Monocytes 1.3 Absolute Eosinophils 0.2 Absolute Basophils 0.0 Sodium 134.9 L Potassium 4.8 Chloride 100 Carbon Dioxide 24 Anion Gap 11 BUN 16 Creatinine 1.06 Est GFR ( Amer) > 60 Est GFR (Non-Af Amer) > 60 Glucose 308 H Calcium 8.6 06/08/17 15:25 Toe - Right Big Toe Gram Stain - Final Impressions: Foot X-Ray 06/07/17 09:18 IMPRESSION: No acute findings. Assessment & Plan - Diagnosis (1) Osteomyelitis of toe Is this a current diagnosis for this admission?: YesPlan: Post great toe amputation right foot. Site looks good.
[2017-06-11] MEDS: ARIPIPRAZOLE 5 MG TABLET PO SCH (09:22)
[2017-06-11] MEDS: FLUOXETINE HCL 20 MG CAPSULE PO SCH (09:22)
[2017-06-11] MEDS: HYDROMORPHONE HCL 2 MG TABLET PO PRN ×3 (09:25→16:01)
[2017-06-11] MEDS: CLONIDINE HCL 0.1 MG TABLET PO SCH ×2 (09:25→21:57)
[2017-06-11] MEDS: FUROSEMIDE 20 MG TABLET PO SCH (09:25)
[2017-06-11] MEDS: SODIUM BICARBONATE 650 MG TABLET PO SCH (09:25)
[2017-06-11] MEDS: ENOXAPARIN SODIUM INJ 40 MG/0.4 ML DISP.SYRIN SUBCUT SCH (09:25)
[2017-06-11] MEDS: DOCUSATE SODIUM 100 MG CAPSULE PO SCH ×2 (09:25→17:09)
[2017-06-11] MEDS: GABAPENTIN 400 MG CAPSULE PO SCH ×2 (09:25→21:57)
--- NOTE | 2017-06-11 12:45 | PDOC PROGRESS REPORT ---
Subjective Progress Note for:: 06/11/17 Subjective:: complains of less pain in foot in the surgical site Physical Exam Vital Signs: Temp Pulse Resp BP Pulse Ox 98.2 F 91 18 158/103 H 97 06/11/17 12:13 06/11/17 12:13 06/11/17 12:13 06/11/17 12:13 06/11/17 12:13 Intake & Output 06/10/17 06/11/17 06/12/17 06:59 06:59 06:59 Intake Total 745 1901 Output Total 1250 845 Balance -505 1056 Weight 117 kg 117 kg General appearance: PRESENT: no acute distress Eye exam: PRESENT: conjunctiva pink. ABSENT: scleral icterus Ear exam: PRESENT: normal external ear exam Mouth exam: PRESENT: moist, tongue midline Neck exam: ABSENT: JVD Respiratory exam: PRESENT: clear to auscultation vanessa. ABSENT: rales, rhonchi, wheezes Cardiovascular exam: PRESENT: RRR. ABSENT: diastolic murmur, rubs, systolic murmur GI/Abdominal exam: PRESENT: normal bowel sounds, soft. ABSENT: distended, guarding, mass, organolmegaly, rebound, tenderness Extremities exam: ABSENT: calf tenderness, clubbing, pedal edema Neurological exam: PRESENT: alert, awake, oriented to person, oriented to place , oriented to time, oriented to situation, CN II-XII grossly intact. ABSENT: motor sensory deficit Psychiatric exam: PRESENT: appropriate affect Skin exam: PRESENT: dry, intact, warm. ABSENT: cyanosis, rash Results Laboratory Results: 06/11/17 04:10 06/11/17 04:10 06/11/17 06/11/17 04:10 04:10 WBC 8.0 RBC 3.18 L Hgb 9.0 L Hct 26.9 L MCV 85 MCH 28.4 MCHC 33.5 RDW 14.5 H Plt Count 320 Seg Neutrophils % 61.5 Lymphocytes % 19.4 Monocytes % 16.1 H Eosinophils % 2.7 Basophils % 0.3 Absolute Neutrophils 4.9 Absolute Lymphocytes 1.6 Absolute Monocytes 1.3 Absolute Eosinophils 0.2 Absolute Basophils 0.0 Sodium 134.9 L Potassium 4.8 Chloride 100 Carbon Dioxide 24 Anion Gap 11 BUN 16 Creatinine 1.06 Est GFR ( Amer) > 60 Est GFR (Non-Af Amer) > 60 Glucose 308 H Calcium 8.6 06/08/17 15:25 Toe - Right Big Toe Gram Stain - Final Impressions: Foot X-Ray 06/07/17 09:18 IMPRESSION: No acute findings. 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 Is this a current diagnosis for this admission?: YesPlan: continue with sliding scale insulin (5) HIV (human immunodeficiency virus infection) Is this a current diagnosis for this admission?: YesPlan: continue antiretrovirals (6) Seizure Is this a current diagnosis for this admission?: YesPlan: no seizure activity (7) Sepsis Qualifiers: Sepsis type: sepsis due to unspecified organism Qualified Code(s): A41.9 - Sepsis, unspecified organism Is this a current diagnosis for this admission?: YesPlan: continue daptomycin and ertepenem (8) CKD (chronic kidney disease), stage III Is this a current diagnosis for this admission?: Yes (9) Coronary artery disease Qualifiers: Coronary Disease-Associated Artery/Lesion type: [place] artery [place] vs. transplanted heart: [place] heart Associated angina: without angina Qualified Code(s): I25.10 - Atherosclerotic heart disease of [place] coronary artery without angina pectoris Is this a current diagnosis for this admission?: Yes (10) Hypertension Qualifiers: Hypertension type: essential hypertension Qualified Code(s): I10 - Essential (primary) hypertension Is this a current diagnosis for this admission?: Yes (11) Peripheral vascular disease Is this a current diagnosis for this admission?: Yes (12) History of pulmonary embolism Is this a current diagnosis for this admission?: Yes (13) PTSD (post-traumatic stress disorder) Is this a current diagnosis for this admission?: Yes - Time Time Spent with patient: 25-34 minutes
[2017-06-11] MEDS: DAPTOMYCIN IV SCH (16:01)
[2017-06-11] MEDS: NORMAL SALINE IV SCH (16:01)
[2017-06-11] MEDS ORDERED: HYDROMORPHONE HCL 2 MG TABLET PO PRN (16:07)
[2017-06-11] MEDS ORDERED: IPRATROPIUM/ALBUTEROL 0.5-2.5 MG/3 ML AMPUL NEB PRN (16:08)
[2017-06-11] MEDS: ERTAPENEM SODIUM 1 GM in NORMAL SALINE 50 ML IV SCH (17:30)
[2017-06-12] MEDS: LANSOPRAZOLE 30 MG TAB.RAP.DR PO SCH (05:23)
[2017-06-12] MEDS: HYDRALAZINE HCL 50 MG TABLET PO SCH ×3 (05:23→21:18)
[2017-06-12] MEDS: OXYCODONE-ACETAMINOPHEN 5-325 MG TABLET PO PRN ×3 (05:24→22:40)
[2017-06-12] MEDS: NORMAL SALINE 1000 ML 1,000 ML IV PRN ×3 (05:25→21:18)
[2017-06-12 05:53] LABS: ABSOLUTE EOSINOPHILS # (AUTO) 0.2 10^3/uL (0.0-0.6); ABSOLUTE LYMPHOCYTES (AUTO) 1.4 10^3/uL (0.5-4.7); ABSOLUTE MONOCYTES (AUTO) 1.3 10^3/uL (0.1-1.4); BASOPHILS % (AUTO) 0.1 % (0-2); EOSINOPHILS % (AUTO) 1.1 % (0-6); HEMATOCRIT 26.4 % (37.9-51.0); HEMOGLOBIN 8.7 g/dL (13.5-17.0); HGB HCT DIFFERENCE -0.3; LYMPHOCYTES % (AUTO) 8.5 % (13-45); MEAN CORPUSCULAR HEMOGLOBIN 28.1 pg (27.0-33.4); MEAN CORPUSCULAR VOLUME 85 fl (80-97); MONOCYTES % (AUTO) 8.1 % (3-13); RED CELL DISTRIBUTION WIDTH 14.3 % (11.5-14.0); SEGMENTED NEUTROPHILS % (AUTO) 82.2 % (42-78); WHITE BLOOD COUNT 15.8 10^3/uL (4.0-10.5)
[2017-06-12 06:06] LABS: ANION GAP 11 (5-19); BLOOD UREA NITROGEN 19 mg/dL (7-20); CALCIUM 8.3 mg/dL (8.4-10.2); CARBON DIOXIDE 24 mmol/L (22-30); CHLORIDE 101 mmol/L (98-107); CREATININE RESULT 1.48 mg/dL (0.52-1.25); GLUCOSE 315 mg/dL (75-110); POTASSIUM 4.5 mmol/L (3.6-5.0); SODIUM 135.9 mmol/L (137-145)
--- NOTE | 2017-06-12 09:38 | PROGRESS NOTE E ---
Progress Note NAME: MILADYS LONDON : 1970 AGE: 46Y DATE: 06/12/2017 ROOM: 406 SUBJECTIVE: Patient is post right big toe amputation and delayed primary closure of the amputation site on 06/10/2017. OBJECTIVE: On examination, the right lower leg is still swollen. The right toe amputation site looks clean and dry and appeared to be viable with no evidence of ischemia. His white count was elevated at 15.8 yesterday. PLAN: I would continue him on his antibiotic therapy for the time being and have his right leg elevated on at least 2 pillows to reduce all the edema on the right lower leg. DICTATING PHYSICIAN: BUD LAZO M.D. [id number] PHY#: [id number] ID: [id number] JOB#: [id number] ACCT: [id number] cc: >
[2017-06-12] MEDS: ENOXAPARIN SODIUM INJ 40 MG/0.4 ML DISP.SYRIN SUBCUT SCH (10:49)
[2017-06-12] MEDS: ARIPIPRAZOLE 5 MG TABLET PO SCH ×2 (10:49→17:48)
[2017-06-12] MEDS: DOCUSATE SODIUM 100 MG CAPSULE PO SCH ×2 (10:50→17:47)
[2017-06-12] MEDS: GABAPENTIN 400 MG CAPSULE PO SCH ×2 (10:50→21:18)
[2017-06-12] MEDS: FUROSEMIDE 20 MG TABLET PO SCH (10:50)
[2017-06-12] MEDS: FLUOXETINE HCL 20 MG CAPSULE PO SCH (10:51)
[2017-06-12] MEDS: SODIUM BICARBONATE 650 MG TABLET PO SCH (10:51)
[2017-06-12] MEDS: CLONIDINE HCL 0.1 MG TABLET PO SCH ×2 (10:51→21:18)
[2017-06-12] MEDS: HYDROMORPHONE HCL INJ/PF 2 MG/ML AMPULE IV PRN (11:14)
[2017-06-12] MEDS: INSULIN REG, HUMAN 100 UNIT/ML 3 ML VIAL (PYX) SUBCUT PRN ×3 (11:15→21:17)
[2017-06-12] MEDS ORDERED: CETIRIZINE 5 MG TABLET PO PRN (12:06)
--- NOTE | 2017-06-12 12:59 | PDOC PROGRESS REPORT ---
Subjective Progress Note for:: 06/12/17 Subjective:: complains of pain in foot in the surgical site Physical Exam Vital Signs: Temp Pulse Resp BP Pulse Ox 98.1 F 86 16 154/98 H 99 06/12/17 12:13 06/12/17 12:13 06/12/17 12:13 06/12/17 12:13 06/12/17 12:13 Intake & Output 06/11/17 06/12/17 06/13/17 06:59 06:59 06:59 Intake Total 1901 3620 888 Output Total 639 690 0791 Balance 1056 3220 -612 Weight 117 kg 118 kg General appearance: PRESENT: no acute distress Eye exam: PRESENT: conjunctiva pink. ABSENT: scleral icterus Mouth exam: PRESENT: moist, tongue midline Neck exam: ABSENT: JVD Respiratory exam: PRESENT: clear to auscultation vanessa. ABSENT: rales, rhonchi, wheezes Cardiovascular exam: PRESENT: RRR. ABSENT: diastolic murmur, rubs, systolic murmur GI/Abdominal exam: PRESENT: normal bowel sounds, soft. ABSENT: distended, guarding, mass, organolmegaly, rebound, tenderness Extremities exam: PRESENT: other - Sutures present over the first metatarsal head in the amputation site. Neurological exam: PRESENT: alert, awake, oriented to person, oriented to place , oriented to time, oriented to situation, CN II-XII grossly intact. ABSENT: motor sensory deficit Psychiatric exam: PRESENT: appropriate affect Skin exam: PRESENT: dry, intact, warm, other - No Drainage from the right great toe surgical site.. ABSENT: cyanosis, rash Results Laboratory Results: 06/12/17 05:40 06/12/17 05:40 06/12/17 06/12/17 05:40 05:40 WBC 15.8 H RBC 3.10 L Hgb 8.7 L Hct 26.4 L MCV 85 MCH 28.1 MCHC 33.0 RDW 14.3 H Plt Count 335 Seg Neutrophils % 82.2 H Lymphocytes % 8.5 L Monocytes % 8.1 Eosinophils % 1.1 Basophils % 0.1 Absolute Neutrophils 13.0 H Absolute Lymphocytes 1.4 Absolute Monocytes 1.3 Absolute Eosinophils 0.2 Absolute Basophils 0.0 Sodium 135.9 L Potassium 4.5 Chloride 101 Carbon Dioxide 24 Anion Gap 11 BUN 19 Creatinine 1.48 H Est GFR ( Amer) > 60 Est GFR (Non-Af Amer) 51 L Glucose 315 H Calcium 8.3 L 06/08/17 15:25 Toe - Right Big Toe Gram Stain - Final 06/08/17 15:25 Toe - Right Big Toe Wound Culture - Final Enterobacter Cl[place]ae Proteus Penneri Prevotella Species Impressions: Foot X-Ray 06/07/17 09:18 IMPRESSION: No acute findings. Assessment & Plan - Diagnosis (1) Necrotic toes Is this a current diagnosis for this admission?: YesPlan: has had amputation of right great toe. 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 Is this a current diagnosis for this admission?: YesPlan: continue with sliding scale insulin (5) HIV (human immunodeficiency virus infection) Is this a current diagnosis for this admission?: YesPlan: continue antiretrovirals (6) Seizure Is this a current diagnosis for this admission?: YesPlan: no seizure activity (7) Sepsis Qualifiers: Sepsis type: sepsis due to unspecified organism Qualified Code(s): A41.9 - Sepsis, unspecified organism Is this a current diagnosis for this admission?: YesPlan: continue daptomycin and ertepenem (8) CKD (chronic kidney disease), stage III Is this a current diagnosis for this admission?: Yes (9) Coronary artery disease Qualifiers: Coronary Disease-Associated Artery/Lesion type: [place] artery [place] vs. transplanted heart: [place] heart Associated angina: without angina Qualified Code(s): I25.10 - Atherosclerotic heart disease of [place] coronary artery without angina pectoris Is this a current diagnosis for this admission?: Yes (10) Hypertension Qualifiers: Hypertension type: essential hypertension Qualified Code(s): I10 - Essential (primary) hypertension Is this a current diagnosis for this admission?: Yes (11) Peripheral vascular disease Is this a current diagnosis for this admission?: Yes (12) History of pulmonary embolism Is this a current diagnosis for this admission?: Yes (13) PTSD (post-traumatic stress disorder) Is this a current diagnosis for this admission?: Yes - Time Time Spent with patient: 25-34 minutes - Inpatient Certification Medical Necessity: Need Close Monitoring Due to Risk of Patient Decompensation, Need for IV Antibiotics
[2017-06-12] MEDS: DAPTOMYCIN IV SCH (15:13)
[2017-06-12] MEDS: NORMAL SALINE IV SCH (15:13)
[2017-06-12] MEDS: ERTAPENEM SODIUM 1 GM in NORMAL SALINE 50 ML IV SCH (17:49)
[2017-06-12] MEDS ORDERED: (PENDING PHARMACY ID) (Aripiprazole [Abilify] 20 MG) PO SCH (18:00)
[2017-06-12] MEDS: SIMVASTATIN 10 MG TABLET PO SCH (21:17)
[2017-06-12] MEDS ORDERED: (PENDING PHARMACY ID) (Prazosin Hcl [Minipress] 1 MG) PO SCH (22:00)
[2017-06-13] MEDS: LANSOPRAZOLE 30 MG TAB.RAP.DR PO SCH (06:17)
[2017-06-13] MEDS: OXYCODONE-ACETAMINOPHEN 5-325 MG TABLET PO PRN ×2 (06:17→20:13)
[2017-06-13] MEDS: HYDRALAZINE HCL 50 MG TABLET PO SCH ×3 (06:18→21:30)
[2017-06-13] MEDS: NORMAL SALINE 1000 ML 1,000 ML IV PRN ×2 (06:19→17:35)
[2017-06-13 06:41] LABS: ANION GAP 9 (5-19); BLOOD UREA NITROGEN 16 mg/dL (7-20); CALCIUM 8.6 mg/dL (8.4-10.2); CARBON DIOXIDE 27 mmol/L (22-30); CHLORIDE 102 mmol/L (98-107); CREATININE RESULT 1.01 mg/dL (0.52-1.25); GLUCOSE 232 mg/dL (75-110); POTASSIUM 4.6 mmol/L (3.6-5.0); SODIUM 138.2 mmol/L (137-145)
[2017-06-13 06:54] LABS: HEMATOCRIT 27.4 % (37.9-51.0); HEMOGLOBIN 9.1 g/dL (13.5-17.0); HGB HCT DIFFERENCE -0.1; MEAN CORPUSCULAR HEMOGLOBIN 28.1 pg (27.0-33.4); MEAN CORPUSCULAR VOLUME 85 fl (80-97); RED BLOOD COUNT 3.22 10^6/uL (4.35-5.55); RED CELL DISTRIBUTION WIDTH 14.4 % (11.5-14.0); WHITE BLOOD COUNT 8.2 10^3/uL (4.0-10.5)
[2017-06-13 07:06] LABS: BASOPHILS % (MANUAL) 0 % (0-2); EOSINOPHILS % (MANUAL) 4 % (0-6); LYMPHOCYTES % (MANUAL) 18 % (13-45); TOTAL CELLS COUNTED 100
[2017-06-13 07:07] LABS: ANISOCYTOSIS SLIGHT; ROULEAUX 2+
[2017-06-13] MEDS: INSULIN REG, HUMAN 100 UNIT/ML 3 ML VIAL (PYX) SUBCUT PRN ×4 (07:51→21:33)
[2017-06-13] MEDS: FLUOXETINE HCL 20 MG CAPSULE PO SCH ×2 (09:03→09:20)
[2017-06-13] MEDS: FUROSEMIDE 20 MG TABLET PO SCH (09:19)
[2017-06-13] MEDS: DOCUSATE SODIUM 100 MG CAPSULE PO SCH ×2 (09:19→17:34)
[2017-06-13] MEDS: CLONIDINE HCL 0.1 MG TABLET PO SCH ×2 (09:19→21:30)
[2017-06-13] MEDS: SODIUM BICARBONATE 650 MG TABLET PO SCH (09:19)
[2017-06-13] MEDS: ATENOLOL 50 MG TABLET PO SCH (09:20)
[2017-06-13] MEDS: ARIPIPRAZOLE 5 MG TABLET PO SCH ×2 (09:20→17:34)
[2017-06-13] MEDS: HYDROMORPHONE HCL INJ/PF 2 MG/ML AMPULE IV PRN ×3 (09:20→21:34)
[2017-06-13] MEDS: GABAPENTIN 400 MG CAPSULE PO SCH ×2 (09:20→21:29)
[2017-06-13] MEDS: ENOXAPARIN SODIUM INJ 40 MG/0.4 ML DISP.SYRIN SUBCUT SCH (09:20)
[2017-06-13] MEDS: AMITRIPTYLINE HCL 25 MG TABLET PO SCH (09:20)
[2017-06-13] MEDS: DICLOFENAC SODIUM 50 MG TABLET.DR PO SCH (09:21)
[2017-06-13] MEDS ORDERED: ALTEPLASE INJ 2 MG VIAL (CATH CLEARANCE) IV ONE (10:00)
[2017-06-13] MEDS ORDERED: (PENDING PHARMACY ID) (Atenolol [Tenormin 100 Mg Tablet] 100 MG) PO SCH (10:00)
[2017-06-13] MEDS ORDERED: DICLOFENAC SODIUM 100 MG PO SCH (10:00)
[2017-06-13] MEDS ORDERED: [UNRECOGNIZED DRUG - OTHER] PO SCH (10:00)
--- NOTE | 2017-06-13 10:35 | PDOC PROGRESS REPORT ---
Subjective Progress Note for:: 06/13/17 Subjective:: Denies any complaint Physical Exam Vital Signs: Temp Pulse Resp BP Pulse Ox 98.6 F 94 16 133/79 H 100 06/13/17 08:00 06/13/17 08:00 06/13/17 08:00 06/13/17 08:00 06/12/17 23:07 Intake & Output 06/12/17 06/13/17 06/14/17 06:59 06:59 06:59 Intake Total 3620 4878 Output Total 400 3780 Balance 3220 1098 Weight 118 kg 117 kg General appearance: PRESENT: no acute distress Eye exam: PRESENT: conjunctiva pink. ABSENT: scleral icterus Mouth exam: PRESENT: moist, tongue midline Neck exam: ABSENT: carotid bruit, JVD, lymphadenopathy, thyromegaly Respiratory exam: PRESENT: clear to auscultation vanessa. ABSENT: rales, rhonchi, wheezes Cardiovascular exam: PRESENT: RRR. ABSENT: diastolic murmur, rubs, systolic murmur GI/Abdominal exam: PRESENT: normal bowel sounds, soft. ABSENT: distended, guarding, mass, organolmegaly, rebound, tenderness Extremities exam: PRESENT: other - Dressing in place on the right foot. ABSENT : calf tenderness, clubbing, pedal edema Neurological exam: PRESENT: alert, awake, oriented to person, oriented to place , oriented to time, oriented to situation, CN II-XII grossly intact. ABSENT: motor sensory deficit Psychiatric exam: PRESENT: appropriate affect Skin exam: PRESENT: dry, intact, warm, other. ABSENT: cyanosis, rash Results Laboratory Results: 06/13/17 06:15 06/13/17 06:15 06/13/17 06/13/17 06:15 06:15 WBC 8.2 RBC 3.22 L Hgb 9.1 L Hct 27.4 L MCV 85 MCH 28.1 MCHC 33.0 RDW 14.4 H Plt Count 367 Seg Neutrophils % Not Reportable Lymphocytes % Not Reportable Monocytes % Not Reportable Eosinophils % Not Reportable Basophils % Not Reportable Absolute Neutrophils Not Reportable Absolute Lymphocytes Not Reportable Absolute Monocytes Not Reportable Absolute Eosinophils Not Reportable Absolute Basophils Not Reportable Sodium 138.2 Potassium 4.6 Chloride 102 Carbon Dioxide 27 Anion Gap 9 BUN 16 Creatinine 1.01 Est GFR ( Amer) > 60 Est GFR (Non-Af Amer) > 60 Glucose 232 H Calcium 8.6 06/08/17 15:25 Toe - Right Big Toe Gram Stain - Final 06/08/17 15:25 Toe - Right Big Toe Wound Culture - Final Enterobacter [place]ae Proteus Penneri Prevotella Species Impressions: Foot X-Ray 06/07/17 09:18 IMPRESSION: No acute findings. Assessment & Plan - Diagnosis (1) Necrotic toes Is this a current diagnosis for this admission?: YesPlan: has had amputation of right great toe. 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 Is this a current diagnosis for this admission?: YesPlan: continue with sliding scale insulin (5) HIV (human immunodeficiency virus infection) Is this a current diagnosis for this admission?: YesPlan: continue antiretrovirals (6) Seizure Is this a current diagnosis for this admission?: YesPlan: no seizure activity (7) Sepsis Qualifiers: Sepsis type: sepsis due to unspecified organism Qualified Code(s): A41.9 - Sepsis, unspecified organism Is this a current diagnosis for this admission?: YesPlan: continue daptomycin and ertepenem (8) CKD (chronic kidney disease), stage III Is this a current diagnosis for this admission?: Yes (9) Coronary artery disease Qualifiers: Coronary Disease-Associated Artery/Lesion type: [place] artery [place] vs. transplanted heart: [place] heart Associated angina: without angina Qualified Code(s): I25.10 - Atherosclerotic heart disease of [place] coronary artery without angina pectoris Is this a current diagnosis for this admission?: Yes (10) Hypertension Qualifiers: Hypertension type: essential hypertension Qualified Code(s): I10 - Essential (primary) hypertension Is this a current diagnosis for this admission?: Yes (11) Peripheral vascular disease Is this a current diagnosis for this admission?: Yes (12) History of pulmonary embolism Is this a current diagnosis for this admission?: Yes (13) PTSD (post-traumatic stress disorder) Is this a current diagnosis for this admission?: Yes - Time Time Spent with patient: 25-34 minutes - Inpatient Certification Medical Necessity: Need Close Monitoring Due to Risk of Patient Decompensation, Need for IV Antibiotics
[2017-06-13] MEDS: DAPTOMYCIN IV SCH (16:05)
[2017-06-13] MEDS: NORMAL SALINE IV SCH (16:05)
[2017-06-13] MEDS: ERTAPENEM SODIUM 1 GM in NORMAL SALINE 50 ML IV SCH (17:35)
[2017-06-13] MEDS: SIMVASTATIN 10 MG TABLET PO SCH (21:30)
[2017-06-14] MEDS: LANSOPRAZOLE 30 MG TAB.RAP.DR PO SCH (05:44)
[2017-06-14] MEDS: HYDROMORPHONE HCL INJ/PF 2 MG/ML AMPULE IV PRN ×2 (05:44→11:49)
[2017-06-14] MEDS: HYDRALAZINE HCL 50 MG TABLET PO SCH ×3 (05:44→21:30)
[2017-06-14 06:05] LABS: ABSOLUTE BASOPHILS # (AUTO) 0.1 10^3/uL (0.0-0.2); ABSOLUTE EOSINOPHILS # (AUTO) 0.2 10^3/uL (0.0-0.6); ABSOLUTE LYMPHOCYTES (AUTO) 1.3 10^3/uL (0.5-4.7); ABSOLUTE MONOCYTES (AUTO) 0.6 10^3/uL (0.1-1.4); ABSOLUTE NEUT (AUTO) 6.1 10^3/uL (1.7-8.2); BASOPHILS % (AUTO) 0.8 % (0-2); EOSINOPHILS % (AUTO) 2.2 % (0-6); HEMATOCRIT 26.7 % (37.9-51.0); HEMOGLOBIN 8.9 g/dL (13.5-17.0); LYMPHOCYTES % (AUTO) 15.7 % (13-45); MEAN CORPUSCULAR HEMOGLOBIN 28.3 pg (27.0-33.4); MEAN CORPUSCULAR HGB CONC 33.3 g/dL (32.0-36.0); MEAN CORPUSCULAR VOLUME 85 fl (80-97); MONOCYTES % (AUTO) 7.8 % (3-13); RED BLOOD COUNT 3.14 10^6/uL (4.35-5.55); RED CELL DISTRIBUTION WIDTH 14.4 % (11.5-14.0); SEGMENTED NEUTROPHILS % (AUTO) 73.5 % (42-78); WHITE BLOOD COUNT 8.3 10^3/uL (4.0-10.5)
[2017-06-14 06:26] LABS: ANION GAP 8 (5-19); BLOOD UREA NITROGEN 15 mg/dL (7-20); CALCIUM 8.5 mg/dL (8.4-10.2); CARBON DIOXIDE 28 mmol/L (22-30); CHLORIDE 100 mmol/L (98-107); CREATININE RESULT 1.06 mg/dL (0.52-1.25); GLUCOSE 289 mg/dL (75-110); POTASSIUM 4.7 mmol/L (3.6-5.0); SODIUM 135.5 mmol/L (137-145)
[2017-06-14] MEDS: INSULIN REG, HUMAN 100 UNIT/ML 3 ML VIAL (PYX) SUBCUT PRN ×4 (09:17→22:01)
[2017-06-14] MEDS: GABAPENTIN 400 MG CAPSULE PO SCH ×2 (09:18→21:30)
[2017-06-14] MEDS: SODIUM BICARBONATE 650 MG TABLET PO SCH (09:18)
[2017-06-14] MEDS: CLONIDINE HCL 0.1 MG TABLET PO SCH ×2 (09:19→21:30)
[2017-06-14] MEDS: FUROSEMIDE 20 MG TABLET PO SCH (09:20)
[2017-06-14] MEDS: ARIPIPRAZOLE 5 MG TABLET PO SCH ×2 (09:20→18:50)
[2017-06-14] MEDS: ATENOLOL 50 MG TABLET PO SCH (09:21)
[2017-06-14] MEDS: AMITRIPTYLINE HCL 25 MG TABLET PO SCH (09:21)
[2017-06-14] MEDS: FLUOXETINE HCL 20 MG CAPSULE PO SCH (09:21)
[2017-06-14] MEDS: DICLOFENAC SODIUM 50 MG TABLET.DR PO SCH (09:22)
[2017-06-14] MEDS: ENOXAPARIN SODIUM INJ 40 MG/0.4 ML DISP.SYRIN SUBCUT SCH (09:23)
[2017-06-14] MEDS: DOCUSATE SODIUM 100 MG CAPSULE PO SCH ×2 (09:30→18:50)
[2017-06-14] MEDS ORDERED: ERGOCALCIFEROL (VITAMIN D2) 50000 UNIT (1.25 MG) CAPSULE PO SCH (10:00)
--- NOTE | 2017-06-14 10:01 | PDOC PROGRESS REPORT ---
Subjective Progress Note for:: 06/14/17 Subjective:: Denies any complaint Physical Exam Vital Signs: Temp Pulse Resp BP Pulse Ox 98.7 F 91 15 137/87 H 93 06/14/17 07:23 06/14/17 07:23 06/14/17 07:23 06/14/17 07:23 06/14/17 07:23 Intake & Output 06/13/17 06/14/17 06/15/17 06:59 06:59 06:59 Intake Total 4878 4350 Output Total 3780 800 Balance 1098 3550 Weight 117 kg 119.4 kg General appearance: PRESENT: no acute distress Eye exam: PRESENT: conjunctiva pink. ABSENT: scleral icterus Mouth exam: PRESENT: moist, tongue midline Neck exam: ABSENT: JVD Respiratory exam: PRESENT: clear to auscultation vanessa. ABSENT: rales, rhonchi, wheezes Cardiovascular exam: PRESENT: RRR. ABSENT: diastolic murmur, rubs, systolic murmur GI/Abdominal exam: PRESENT: normal bowel sounds, soft. ABSENT: distended, guarding, mass, organolmegaly, rebound, tenderness Extremities exam: PRESENT: other - Dressing in place on the right foot. ABSENT : calf tenderness, clubbing, pedal edema Neurological exam: PRESENT: alert, awake, oriented to person, oriented to place , oriented to time, oriented to situation, CN II-XII grossly intact. ABSENT: motor sensory deficit Psychiatric exam: PRESENT: appropriate affect Skin exam: PRESENT: other - Dressing in place on the right foot Results Laboratory Results: 06/14/17 05:45 06/14/17 05:45 06/14/17 06/14/17 05:45 05:45 WBC 8.3 RBC 3.14 L Hgb 8.9 L Hct 26.7 L MCV 85 MCH 28.3 MCHC 33.3 RDW 14.4 H Plt Count 405 Seg Neutrophils % 73.5 Lymphocytes % 15.7 Monocytes % 7.8 Eosinophils % 2.2 Basophils % 0.8 Absolute Neutrophils 6.1 Absolute Lymphocytes 1.3 Absolute Monocytes 0.6 Absolute Eosinophils 0.2 Absolute Basophils 0.1 Sodium 135.5 L Potassium 4.7 Chloride 100 Carbon Dioxide 28 Anion Gap 8 BUN 15 Creatinine 1.06 Est GFR ( Amer) > 60 Est GFR (Non-Af Amer) > 60 Glucose 289 H Calcium 8.5 Impressions: Foot X-Ray 06/07/17 09:18 IMPRESSION: No acute findings. Assessment & Plan - Diagnosis (1) Necrotic toes Is this a current diagnosis for this admission?: YesPlan: has had amputation of right great toe. 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 Is this a current diagnosis for this admission?: YesPlan: continue with sliding scale insulin (5) HIV (human immunodeficiency virus infection) Is this a current diagnosis for this admission?: YesPlan: continue antiretrovirals (6) Seizure Is this a current diagnosis for this admission?: YesPlan: no seizure activity (7) Sepsis Qualifiers: Sepsis type: sepsis due to unspecified organism Qualified Code(s): A41.9 - Sepsis, unspecified organism Is this a current diagnosis for this admission?: YesPlan: continue daptomycin and ertepenem (8) CKD (chronic kidney disease), stage III Is this a current diagnosis for this admission?: Yes (9) Coronary artery disease Qualifiers: Coronary Disease-Associated Artery/Lesion type: [place] artery [place] vs. transplanted heart: [place] heart Associated angina: without angina Qualified Code(s): I25.10 - Atherosclerotic heart disease of [place] coronary artery without angina pectoris Is this a current diagnosis for this admission?: Yes (10) Hypertension Qualifiers: Hypertension type: essential hypertension Qualified Code(s): I10 - Essential (primary) hypertension Is this a current diagnosis for this admission?: Yes (11) Peripheral vascular disease Is this a current diagnosis for this admission?: Yes (12) History of pulmonary embolism Is this a current diagnosis for this admission?: Yes (13) PTSD (post-traumatic stress disorder) Is this a current diagnosis for this admission?: Yes - Time Time Spent with patient: 25-34 minutes - Inpatient Certification Medical Necessity: Need for IV Antibiotics
[2017-06-14] MEDS: NORMAL SALINE 1000 ML 1,000 ML IV PRN (11:56)
--- NOTE | 2017-06-14 12:52 | PROGRESS NOTE E ---
Progress Note NAME: MILADYS LONDON : 1970 AGE: 46Y DATE: 06/14/2017 ROOM: 406 The right mid toe amputation stump appears to be healing quite well. It is dry. His white count is 8.3. I told him the wound can be followed up in the [facility] and the stitches should be removed in about 3 weeks. DICTATING PHYSICIAN: BUD LAZO M.D. [id number] PHY#: [id number] ID: [id number] JOB#: [id number] ACCT: [id number] cc: >
[2017-06-14] MEDS: SIMVASTATIN 10 MG TABLET PO SCH (21:30)
[2017-06-15] MEDS: HYDROMORPHONE HCL INJ/PF 2 MG/ML AMPULE IV PRN (03:02)
[2017-06-15] MEDS: HYDRALAZINE HCL 50 MG TABLET PO SCH (05:18)
[2017-06-15] MEDS: LANSOPRAZOLE 30 MG TAB.RAP.DR PO SCH (05:18)
[2017-06-15] MEDS: INSULIN REG, HUMAN 100 UNIT/ML 3 ML VIAL (PYX) SUBCUT PRN ×2 (08:53→11:46)
[2017-06-15] MEDS: FUROSEMIDE 20 MG TABLET PO SCH (09:03)
[2017-06-15] MEDS: FLUOXETINE HCL 20 MG CAPSULE PO SCH (09:03)
[2017-06-15] MEDS: CLONIDINE HCL 0.1 MG TABLET PO SCH (09:04)
[2017-06-15] MEDS: AMITRIPTYLINE HCL 25 MG TABLET PO SCH (09:05)
[2017-06-15] MEDS: GABAPENTIN 400 MG CAPSULE PO SCH (09:05)
[2017-06-15] MEDS: SODIUM BICARBONATE 650 MG TABLET PO SCH (09:05)
[2017-06-15] MEDS: DICLOFENAC SODIUM 50 MG TABLET.DR PO SCH (09:08)
[2017-06-15] MEDS: ATENOLOL 50 MG TABLET PO SCH (09:08)
[2017-06-15] MEDS: ENOXAPARIN SODIUM INJ 40 MG/0.4 ML DISP.SYRIN SUBCUT SCH (09:09)
[2017-06-15] MEDS: DOCUSATE SODIUM 100 MG CAPSULE PO SCH (09:09)
[2017-06-15] MEDS ORDERED: SODIUM POLYSTYRENE SULFONATE 15 GM/60 ML PO SCH (10:00)
--- NOTE | 2017-06-15 10:27 | PDOC DISCHARGE SUMMARY ---
General - Admit/Disc Date/PCP Admission Date/Primary Care Provider: 06/07/17 13:09 ANGEL EVANS Discharge Date: 06/15/17 - Discharge Diagnosis (1) Necrotic toes Is this a current diagnosis for this admission?: YesSummary: Post amputation of the right great toe with a right metatarsal head. The patient had amputation but secondary closure. Patient is being sent home on ertapenem for a total of 4 weeks of antibiotic therapy. Last dose will be July 10. The patient has a history of MRSA 2016 but has not had any more MRSA since 2015. Because of this the daptomycin has been stopped. The patient has grown out Serratia, Enterobacter, Proteus, Prevotella. (2) Anemia of chronic disease Is this a current diagnosis for this admission?: Yes (3) COPD (chronic obstructive pulmonary disease) Is this a current diagnosis for this admission?: Yes (4) Diabetes Is this a current diagnosis for this admission?: Yes (5) HIV (human immunodeficiency virus infection) Is this a current diagnosis for this admission?: Yes (6) Seizure Is this a current diagnosis for this admission?: Yes (7) Sepsis Is this a current diagnosis for this admission?: Yes (8) CKD (chronic kidney disease), stage III Is this a current diagnosis for this admission?: Yes (9) Coronary artery disease Is this a current diagnosis for this admission?: Yes (10) Hypertension Is this a current diagnosis for this admission?: Yes (11) Peripheral vascular disease Is this a current diagnosis for this admission?: Yes (12) History of pulmonary embolism Is this a current diagnosis for this admission?: Yes (13) PTSD (post-traumatic stress disorder) Is this a current diagnosis for this admission?: Yes - Additional Information Resuscitation Status: Full Code Discharge Diet: Cardiac, Diabetic Discharge Activity: Activity As Tolerated Home Medications: Alprazolam [Xanax] 2 mg PO BID 06/08/17 Amitriptyline HCl [Elavil 25 mg Tablet] 25 mg PO DAILY 06/08/17 Aripiprazole [Abilify] 20 mg PO QPM 06/08/17 Atenolol [Tenormin 100 mg Tablet] 100 mg PO DAILY 06/08/17 Clonidine HCl [Catapres 0.1 mg Tablet] 0.1 mg PO Q12 06/08/17 Cyclobenzaprine HCl [Flexeril 10 mg Tablet] 10 mg PO TIDP PRN 06/08/17 Diclofenac Sodium [Diclofenac Sodium ER] 100 mg PO DAILY 06/08/17 Emtricitab/Rilpiviri/Tenof Ala [Odefsey Tablet] 1 each PO DAILY 06/08/17 Ergocalciferol (Vitamin D2) [Drisdol 50,000 unit (1.25MG) Capsule] 50,000 unit PO BARRON@1000 06/08/17 Fluoxetine HCl [Prozac] 40 mg PO DAILY 06/08/17 Fluticasone Propionate [Flonase Nasal [place] 50 Mcg/[place] 16 gm] 2 sprays NASL DAILY 06/08/17 Gabapentin [Neurontin 400 mg Capsule] 400 mg PO BID 06/08/17 Hydralazine HCl [Apresoline 50 mg Tablet] 50 mg PO Q8 06/08/17 Insulin Glargine,Hum.rec.anlog [Lantus Insulin 100 Unit/1 ml 10 ml] 45 unit SUBCUT QHS 06/08/17 Levocetirizine Dihydrochloride [Xyzal] 5 mg PO DAILYP PRN 06/08/17 Prazosin HCl [Minipress] 1 mg PO QHS 06/08/17 Simvastatin [Zocor 20 mg Tablet] 20 mg PO QHS 06/08/17 Sodium Polystyrene Sulfon/Sorb [Sps 15 gm/60 ml Suspension] 30 gm PO MO@1000 Zolpidem Tartrate [Ambien] 15 mg PO HSP PRN 06/08/17 Ertapenem Sodium [Invanz Inj 1 gm Vial] 1 gm IVPB DAILY #25 vial 06/15/17 Hydromorphone HCl [Dilaudid 2 mg Tablet] 4 mg PO Q2HP PRN #10 tablet 06/15/17 Sodium Bicarbonate [Sodium Bicarbonate 650 mg Tablet] 650 mg PO DAILY #30 tablet 06/15/17 History of Present Illness History of Present Illness: MILADYS LONDON III is a 46 year old male history of diabetes, HIV, peripheral disease and history of ostium myelitis of the left foot for which she had been on daptomycin. The patient presented with increasing pain in the right great toe. The patient had an infection around his toenail. The patient had the swelling and redness and pain associated with it. Patient is admitted for IV antibiotics. Hospital Course Hospital Course: -year-old male with diabetes, HIV and peripheral vascular disease who presented with an infected right great toe. It was found to have osteomyelitis and general surgery was consulted. They performed an amputation of the right great toe along with the right first metatarsal head. The site was not closed completely and left open because of viable skin flaps. Patient then had secondary closure several days later. Since that time the patient has done well with decrease in pain and what appears to be a surgically viable wound. The patient has one blood culture grew out Serratia and wound culture grew out Proteus, Enterobacter and Prevotella. Patient was empirically put on a carb ertapenem and daptomycin. Patient had been on daptomycin because of previous histories of osteomyelitis and the last time the patient had MRSA was in January 2016. Patient has had previous infections with staph aureus but they were not MRSA. Because of this it was felt the patient could be treated just with a single agent ertapenem. The patient will be sent home with ertapenem 1 g IV daily until July 10. That will give a total of IV antibiotics for treatment of the osteomyelitis. The patient can be reassessed at that time decide whether or not he needs continued IV antibiotics. The patient will be followed up at the surgery wound clinic. The patient is discharged home with home health for IV antibiotics Physical Exam Vital Signs: Temp Pulse Resp BP Pulse Ox 98.6 F 77 17 153/90 H 96 06/15/17 07:53 06/15/17 07:53 06/15/17 07:53 06/15/17 07:53 06/15/17 07:53 Intake & Output 06/14/17 06/15/17 06/16/17 06:59 06:59 06:59 Intake Total 4350 4030 Output Total 800 1650 Balance 3550 2380 Weight 119.4 kg 118.9 kg General appearance: PRESENT: no acute distress Eye exam: PRESENT: conjunctiva pink. ABSENT: scleral icterus Mouth exam: PRESENT: moist, tongue midline Neck exam: ABSENT: JVD Respiratory exam: PRESENT: clear to auscultation vanessa. ABSENT: rales, rhonchi, wheezes Cardiovascular exam: PRESENT: RRR. ABSENT: diastolic murmur, rubs, systolic murmur GI/Abdominal exam: PRESENT: normal bowel sounds, soft. ABSENT: distended, guarding, mass, organolmegaly, rebound, tenderness Extremities exam: PRESENT: other - Dressing in place on the right foot.. ABSENT : calf tenderness, clubbing, pedal edema Neurological exam: PRESENT: alert, awake, oriented to person, oriented to place , oriented to time, oriented to situation, CN II-XII grossly intact. ABSENT: motor sensory deficit Psychiatric exam: PRESENT: appropriate affect Skin exam: PRESENT: other - Dressing in place on the right foot. Results Laboratory Results: 06/14/17 05:45 06/14/17 05:45 Impressions: Foot X-Ray 06/07/17 09:18 IMPRESSION: No acute findings. Qualifiers PATEINT BEING DISCHARGED WITH ANY OF THE FOLLOWING DIAGNOSIS?: No Plan Discharge Plan: Patient is discharged home with home health Time Spent: Greater than 30 Minutes
[2017-06-15] MEDS ORDERED: ERTAPENEM SODIUM 1 GM in NORMAL SALINE 50 ML IV ONE (11:00)
[2017-06-15 13:03] LABS: ALDOSTERONE <1.0 ng/dL (0.0-30.0)
[2017-06-15 14:01] VITALS: BP 132/76
== END 2017-06-15 14:28 | disposition home health service (06) | DRG 854 ==
LOC: ER 08:59 → UNDOADMIN 11:27 → EH 11:27 → 4N 13:01 → UNDOADMIN 14:12
PROVIDERS: ADMIT Internal Medicine; ATTEND Internal Medicine
PROC: 0JBR0ZZ Excision of Left Foot Subcutaneous Tissue and Fascia, Open Approach (ICD-10-PCS; 2017-06-07)
PROC: 0JBQ0ZZ Excision of Right Foot Subcutaneous Tissue and Fascia, Open Approach (ICD-10-PCS; 2017-06-07)
PROC: 0Y6P0Z0 Detachment at Right 1st Toe, Complete, Open Approach (ICD-10-PCS; principal; 2017-06-08 15:00)
PROC: 0JQQ0ZZ Repair Right Foot Subcutaneous Tissue and Fascia, Open Approach (ICD-10-PCS; 2017-06-10)
DX: A41.9 Sepsis, unspecified organism (principal); M86.272 Subacute osteomyelitis, left ankle and foot; E11.69 Type 2 diabetes mellitus with other specified complication; E11.628 Type 2 diabetes mellitus with other skin complications; L03.031 Cellulitis of right toe; B96.4 Proteus (mirabilis) (morganii) as the cause of diseases classified elsewhere; B96.89 Other specified bacterial agents as the cause of diseases classified elsewhere; I12.9 Hypertensive chronic kidney disease with stage 1 through stage 4 chronic kidney disease, or unspecified chronic kidney disease; E11.22 Type 2 diabetes mellitus with diabetic chronic kidney disease; N18.3 Chronic kidney disease, stage 3 (moderate); D63.1 Anemia in chronic kidney disease; J44.9 Chronic obstructive pulmonary disease, unspecified; E11.42 Type 2 diabetes mellitus with diabetic polyneuropathy; E11.51 Type 2 diabetes mellitus with diabetic peripheral angiopathy without gangrene; Z21 Asymptomatic human immunodeficiency virus [HIV] infection status; G40.909 Epilepsy, unspecified, not intractable, without status epilepticus; F43.10 Post-traumatic stress disorder, unspecified; Z79.899 Other long term (current) drug therapy; Z79.4 Long term (current) use of insulin; Z86.711 Personal history of pulmonary embolism; Z86.14 Personal history of Methicillin resistant Staphylococcus aureus infection; Z96.651 Presence of right artificial knee joint; F17.200 Nicotine dependence, unspecified, uncomplicated; Z88.0 Allergy status to penicillin; E87.5 Hyperkalemia; F41.8 Other specified anxiety disorders
CPT/HCPCS: 01470; 36415; 80048; 80053; 81001; 82088; 82803; 82962; 83605; 84244; 85025; 85610; 87040; 87070; 87075; 87077; 87086; 87186; 87205; 88304; 88311; 93005; 93010; 94640; 96361; 96365; 99291; J0696; J0878; J1170; J1335; J1650; J1815; J2250; J2704; J2997; J3010; J3370; J3490; J7030; J7620

== ENCOUNTER 2017-06-30 11:50 | Emergency (ER) | payer MEDICARE, MEDICAID ==
--- NOTE | 2017-06-30 12:16 | ER Document Report ---
ED Medical Screen (RME) - General Chief Complaint: Arm Pain Stated Complaint: LEFT ARM PAIN Time Seen by Provider: 06/30/17 12:14 Notes: Patient presents with left arm swelling and pain since last evening. He states he noticed redness this morning also. Patient does have a PICC line in this arm for antibiotics. He is receiving antibiotics for toe amputations. Patient denies any fevers. PICC line was removed in triage and placed in a biohazard container for possible culture. TRAVEL OUTSIDE OF THE [place] IN LAST 30 DAYS: No - Related Data Allergies/Adverse Reactions: Penicillins Allergy (Verified 06/30/17 12:04) rash Past Medical History - Social History Frequency of alcohol use: None Drug Abuse: Cocaine, Marijuana Family history: None - Past Medical History Cardiac Medical History: Reports: Hx Coronary Artery Disease, Hx Heart Attack, Hx Hypercholesterolemia, Hx Hypertension, Hx Peripheral Vascular Disease, Hx Pulmonary Embolism Pulmonary Medical History: Reports: Hx Asthma, Hx COPD, Hx Pneumonia - 1 year ago Neurological Medical History: Reports: Hx Seizures - 4 years ago; Depakote stopped by his physician. Endocrine Medical History: Reports: Hx Diabetes Mellitus Type 1, Hx Diabetes Mellitus Type 2 - IDDM Renal/ Medical History: Reports: Hx Renal Insufficiency. Denies: Hx Peritoneal Dialysis Malignancy Medical History: GI Medical History: Reports: Hx Hepatitis Musculoskeltal Medical History: Reports Hx Arthritis, Reports Hx Musculoskeletal Trauma Skin Medical History: Reports Hx MRSA Psychiatric Medical History: Reports: Hx Anxiety, Hx Bipolar Disorder, Hx Depression, Hx Post Traumatic Stress Disorder Traumatic Medical History: Reports: Hx Fractures - Knee pelvis and hand Infectious Medical History: Reports: Hx Hepatitis, Hx HIV - Patient reports no detectable viral count, Hx MRSA Past Surgical History: Reports: Hx Oral Surgery - Removal of most of teeth, Hx Orthopedic Surgery - right knee replacement, rt toe amputation; amputation 2 left toes., Other - Laser eye surgery PICC line placement, wound debridement - Immunizations Immunizations up to date: Yes Hx Diphtheria, Pertussis, Tetanus Vaccination: Yes Physical Exam - Vital signs Vitals: Temp Pulse BP Pulse Ox 98.1 F 81 135/88 H 96 06/30/17 12:04 06/30/17 12:04 06/30/17 12:04 06/30/17 12:04 Course - Vital Signs Vital signs: Temp Pulse Resp BP Pulse Ox 98.1 F 81 135/88 H 96 06/30/17 12:04 06/30/17 12:04 06/30/17 12:04 06/30/17 12:04
--- NOTE | 2017-06-30 12:35 | ER Document Report ---
ED General - General Chief Complaint: Arm Pain Stated Complaint: LEFT ARM PAIN Time Seen by Provider: 06/30/17 12:14 Notes: 38-year-old male with history of diabetes, amputations and subsequent infection currently receiving ertapenem through a left-sided PICC line presents with pain and redness at the PICC line since yesterday. Moderate. Increasing. Denies hand and wrist numbness or tingling. Denies fevers or chills. Incidentally has had diarrhea for 2 days. Denies swelling other than immediately surrounding the PICC insertion. TRAVEL OUTSIDE OF THE [place] IN LAST 30 DAYS: No - Related Data Allergies/Adverse Reactions: Penicillins Allergy (Verified 06/30/17 12:04) rash Past Medical History - General Information source: Patient - Social History Smoking Status: Current Every Day Smoker Frequency of alcohol use: None Drug Abuse: Cocaine, Marijuana Family History: CAD, COPD, DM, Hyperlipidemia, Hypertension Patient has suicidal ideation: No Patient has homicidal ideation: No - Past Medical History Cardiac Medical History: Reports: Hx Coronary Artery Disease, Hx Heart Attack, Hx Hypercholesterolemia, Hx Hypertension, Hx Peripheral Vascular Disease, Hx Pulmonary Embolism Pulmonary Medical History: Reports: Hx Asthma, Hx COPD, Hx Pneumonia - 1 year ago Neurological Medical History: Reports: Hx Seizures - 4 years ago; Depakote stopped by his physician. Endocrine Medical History: Reports: Hx Diabetes Mellitus Type 1, Hx Diabetes Mellitus Type 2 - IDDM Renal/ Medical History: Reports: Hx Renal Insufficiency. Denies: Hx Peritoneal Dialysis Malignancy Medical History: GI Medical History: Reports: Hx Hepatitis Musculoskeltal Medical History: Reports Hx Arthritis, Reports Hx Musculoskeletal Trauma Skin Medical History: Reports Hx MRSA Psychiatric Medical History: Reports: Hx Anxiety, Hx Bipolar Disorder, Hx Depression, Hx Post Traumatic Stress Disorder Traumatic Medical History: Reports: Hx Fractures - Knee pelvis and hand Infectious Medical History: Reports: Hx Hepatitis, Hx HIV - Patient reports no detectable viral count, Hx MRSA Past Surgical History: Reports: Hx Oral Surgery - Removal of most of teeth, Hx Orthopedic Surgery - right knee replacement, rt toe amputation; amputation 2 left toes., Other - Laser eye surgery PICC line placement, wound debridement - Immunizations Immunizations up to date: Yes Hx Diphtheria, Pertussis, Tetanus Vaccination: Yes Hx Pneumococcal Vaccination: 11/09/13 Review of Systems - Review of Systems Notes: REVIEW OF SYSTEMS GEN: Denies fever, chills, weight loss ENT: Denies sore throat, nasal discharge, ear pain EYES: Denies blurry vision, eye pain, discharge CV: Denies chest pain, palpitations, edema RESP: Denies cough, shortness of breath, wheezing GI: Denies abdominal pain, nausea, vomiting, diarrhea MSK: Left arm pain SKIN: Redness around PICC line left arm LYMPH: Denies swollen glands/lymph nodes NEURO: Denies headache, focal weakness or numbness, dizziness PSYCH: Denies depression, suicidal or homicidal ideation PHYSICAL EXAMINATION General: No acute distress, well-nourished Head: Atraumatic, normocephalic ENT: Mouth normal, oropharynx moist, no exudates or tonsillar enlargement Eyes: Conjunctiva normal, pupils equal, lids normal Neck: No JVD, supple, no guarding CVS: Normal rate, regular rhythm, no murmurs Resp: No resp distress, equal and normal breath sounds bilaterally GI: Nondistended, soft, no tenderness to palpation, no rebound or guarding Ext: No deformities, no edema, 10 x 12 cm area of erythema with mild tenderness around the left PICC line area. PICC line has been removed at triage prior to my exam. No swelling. Back: No CVA or midline TTP Skin: No rash, warm Lymphatic: No lymphadeopathy noted Neuro: Awake, alert. Face symmetric. GCS 15. Physical Exam - Vital signs Vitals: Temp Pulse BP Pulse Ox 98.1 F 81 135/88 H 96 06/30/17 12:04 06/30/17 12:04 06/30/17 12:04 06/30/17 12:04 Course - Re-evaluation Re-evalutation: 06/30/17 15:45 Patient presents with redness and swelling with tenderness around his PICC line site. He is overall well-appearing with no signs of sepsis. The PICC line was removed prior to my evaluation and I do not see an abscess. I will do an ultrasound to rule out DVT get some basic labs, and arrange for PICC line placement and the contralateral arm since he still needs to have antibiotics. In terms of his diarrhea he has not had any in the ED and is appropriate for outpatient workup for C. difficile and antibiotic associated diarrhea. Ultrasound done on the left does not show DVT. Patient is currently in radiology receiving his PICC line on the other side. I will treat this as a cellulitis and discharge him with Bactrim. - Vital Signs Vital signs: Temp Pulse Resp BP Pulse Ox 98.1 F 81 135/88 H 96 06/30/17 12:04 06/30/17 12:04 06/30/17 12:04 06/30/17 12:04 - Laboratory Result Diagrams: 06/30/17 12:55 06/30/17 12:55 Laboratory results interpreted by me: 06/30/17 06/30/17 12:55 12:55 RBC 3.61 L Hgb 9.9 L Hct 30.2 L RDW 14.1 H Potassium 5.1 H BUN 32 H Creatinine 1.69 H Est GFR ( Amer) 53 L Est GFR (Non-Af Amer) 44 L Glucose 117 H - Diagnostic Test Radiology reviewed: Image reviewed, Reports reviewed Discharge - Discharge Clinical Impression: Cellulitis Qualifiers: Site of cellulitis: extremity Site of cellulitis of extremity: upper extremity Laterality: left Qualified Code(s): L03.114 - Cellulitis of left upper limb Condition: Good Disposition: HOME, SELF-CARE Additional Instructions: We have removed your PICC line because it might be infected. Unfortunately we are unable to confirm the infection so I will give you some antibiotics to treat this infection. Please note that the IV antibiotics you are on are not likely to treat certain skin infections. You have a new PICC line on the right side. We have some tests pending including blood cultures from your PICC line so if they are abnormal in 1 or 2 days he will receive a phone call. Please follow-up with your regular doctor regarding this PICC line infection as well as the diarrhea you are having because you might require further outpatient testing for Clostridium difficile diarrhea. Prescriptions: Sulfamethoxazole/Trimethoprim [Septra-Ds 800-160 mg Tablet] 1 tab PO BID #14 tablet
[2017-06-30 13:23] LABS: ABSOLUTE EOSINOPHILS # (AUTO) 0.4 10^3/uL (0.0-0.6); ABSOLUTE LYMPHOCYTES (AUTO) 1.1 10^3/uL (0.5-4.7); ABSOLUTE MONOCYTES (AUTO) 0.3 10^3/uL (0.1-1.4); ABSOLUTE NEUT (AUTO) 4.9 10^3/uL (1.7-8.2); BASOPHILS % (AUTO) 0.3 % (0-2); EOSINOPHILS % (AUTO) 5.9 % (0-6); HEMATOCRIT 30.2 % (37.9-51.0); HEMOGLOBIN 9.9 g/dL (13.5-17.0); HGB HCT DIFFERENCE -0.5; LYMPHOCYTES % (AUTO) 16.3 % (13-45); MEAN CORPUSCULAR HEMOGLOBIN 27.4 pg (27.0-33.4); MEAN CORPUSCULAR HGB CONC 32.7 g/dL (32.0-36.0); MEAN CORPUSCULAR VOLUME 84 fl (80-97); RED BLOOD COUNT 3.61 10^6/uL (4.35-5.55); RED CELL DISTRIBUTION WIDTH 14.1 % (11.5-14.0); SEGMENTED NEUTROPHILS % (AUTO) 72.5 % (42-78); WHITE BLOOD COUNT 6.8 10^3/uL (4.0-10.5)
[2017-06-30 13:31] LABS: ANION GAP 12 (5-19); BLOOD UREA NITROGEN 32 mg/dL (7-20); CALCIUM 9.6 mg/dL (8.4-10.2); CARBON DIOXIDE 23 mmol/L (22-30); CHLORIDE 103 mmol/L (98-107); CREATININE RESULT 1.69 mg/dL (0.52-1.25); GLUCOSE 117 mg/dL (75-110); POTASSIUM 5.1 mmol/L (3.6-5.0); SODIUM 137.9 mmol/L (137-145)
--- NOTE | 2017-06-30 15:31 | RADIOLOGY REPORT (SQ) ---
EXAM DESCRIPTION: VENOUS UNILATERAL UPPER COMPLETED DATE/TIME: 06/30/2017 3:17 pm REASON FOR STUDY: LUE PAIN, PREVIOUS PICC LINE COMPARISON: CHEST FILMS 04/24/2017, 05/26/2017 PICC PLACEMENT 04/27/2017 TECHNIQUE: Dynamic and static dorado scale and color images acquired of the LEFT arm venous system. Se lected spectral images acquired with additional compression and augmentation maneuvers. The contralat eral subclavian vein and internal jugular vein were also imaged. Images stored on PACS. LIMITATIONS: None. FINDINGS: LEFT INTERNAL JUGULAR VEIN: Normal phasicity, compression, augmentation. No visualized echogenic material on dorado scale. No defects on color images. Comparison opposite side normal. SUBCLAVIAN VEIN: Normal compression, augmentation. No visualized echogenic material on dorado scale. No defects on color images. AXILLARY VEIN: Normal compression, augmentation. No visualized echogenic material on dorado scale. No d efects on color images. BRACHIAL VEIN: Normal compression, augmentation. No visualized echogenic material on dorado scale. No d efects on color images. BASILIC VEIN: Normal compression, augmentation. No visualized echogenic material on dorado scale. No de fects on color images. CEPHALIC VEIN: Normal compression, augmentation. No visualized echogenic material on dorado scale. No d efects on color images. OTHER: There is a left prominent proximal brachial artery branch near the left humeral head, proximal to the location of prior left PICC line. RIGHT SUBCLAVIAN VEIN AND INTERNAL JUGULAR VEIN: Normal phasicity, compression and augmentation. No visualized echogenic material on dorado scale. No de fects on color images. IMPRESSION: NO EVIDENCE DVT OR SVT LEFT ARM. TECHNICAL DOCUMENTATION: JOB ID: [id number] [employer]- All Rights Reserved
[2017-06-30 17:10] VITALS: BP 162/97
--- NOTE | 2017-06-30 17:10 | RADIOLOGY REPORT (SQ) ---
EXAM DESCRIPTION: PICC INSERTION; FLUORO/CV PLACEMENT; U/S GUIDE FOR VASCULAR ACCESS COMPLETED DATE/TIME: 06/30/2017 4:44 pm REASON FOR STUDY: NEEDS NEW PICC; PICC PLACEMENT COMPARISON: PICC placement 05/26/2017 Chest films 05/26/2017, 05/21/2017 FLUOROSCOPY TIME: 9 seconds 1 digital radiograph and 1 ultrasound image saved to PACS. TECHNIQUE: Fluoroscopic and ultrasound guided PICC placement. LIMITATIONS: None. PROCEDURE: After written consent and assessment were obtained, the patient was brought into the fluo roscopy room and place supine on the table. Ultrasound was used on the patient's right arm for PICC access. The right arm was prepped and draped in a sterile fashion along with the ultrasound probe. Th e entry site was anesthetized with 3 mL of 1% lidocaine. A 21 gauge 7 cm needle was advanced through the skin and into the right basilic vein under live ultrasound guidance. An ultrasound image was shashi ed to PACS confirming access site. A .018 guide wire was then inserted through the needle and into t he venous system. The needle was the removed and an 11 blade scalpel was used to make a 1cm skin inci raliegh. A 5 fr peel-away sheath was advanced over the wire and into the venous system. A measurement w as then made using the existing wire and live fluoroscopic guidance. The wire was then removed and th e trimmed. The PICC was advanced through the peel-away sheath and into the venous system. The peel-aw ay sheath was removed and the catheter was adhered to the patients arm with a stat lock. The catheter was then aspirated and flushed and a sterile bandage was placed over the access site. A fluoroscopi c spot image was saved to PACS confirming the catheter tip within the superior vena cava. IMPRESSION: SUCCESSFUL PLACEMENT OF A 5 FR DUAL LUMEN 39 CM PICC IN THE RIGHT BASILIC VEIN. COMMENT: Patient medication list reviewed: Yes- Quality ID# [id number]:Eligible professional attests to doc umenting in the medical record they obtained, updated, or reviewed the patient's current medications. . Quality ID 145: Final reports for procedures using fluoroscopy that document radiation exposure demetrius leyda, or exposure time and number of fluorographic images (if radiation exposure indices are not avail able) Quality ID #76: The patient was prepped and draped using maximum sterile barrier technique including cap, mask, sterile gown, sterile gloves, a large sterile sheet, hand hygiene, and 2% Chlorhexidine fo r cutaneous antisepsis. When ultrasound is used, sterile ultrasound techniques are followed requiring sterile gel and sterile probes. TECHNICAL DOCUMENTATION: JOB ID: [id number] [employer]- All Rights Reserved
== END 2017-06-30 17:12 | disposition home or self-care (01) ==
LOC: ER 11:50
DX: L03.114 Cellulitis of left upper limb (principal); E11.9 Type 2 diabetes mellitus without complications; F17.200 Nicotine dependence, unspecified, uncomplicated
CPT/HCPCS: 99284; 36415; 87040; 85025; 80048; 93971; 36569; 77001; 76937; C1769; J1642

== ENCOUNTER 2017-07-05 15:14 | Emergency (ER) | payer MEDICARE, MEDICAID ==
[2017-07-05 15:18] VITALS: BP 125/87
[2017-07-05] MEDS ORDERED: HYDROCODONE/ACETAMINOPHEN 5-325 MG TABLET PO ONE (15:52)
--- NOTE | 2017-07-05 15:58 | ER Document Report ---
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 Patient has a dime size diabetic foot ulcer on the lateral aspect of the left foot that has been there for weeks to months. Patient does get home health wound care for same. Patient is also on antibiotics via PICC line. Patient presents today because he was concerned that this wound is infected. No fevers. He also reports pain to the foot. Of note, patient does continue to use cocaine on a regular basis. - ROS Systems Reviewed and Negative: Yes All other systems reviewed and negative - CONSTITUTIONAL Constitutional: DENIES: Fever, Chills - CARDIOVASCULAR Cardiovascular: DENIES: Chest pain - REPRODUCTIVE Reproductive: DENIES: : - DERM Skin Color: Normal, [place] Past Medical History - General Information source: Patient - Social History Smoking Status: Current Every Day Smoker Chew tobacco use (# tins/day): No Frequency of alcohol use: None Drug Abuse: Cocaine, Marijuana Family History: CAD, COPD, DM, Hyperlipidemia, Hypertension Patient has suicidal ideation: No Patient has homicidal ideation: No - Past Medical History Cardiac Medical History: Reports: Hx Coronary Artery Disease, Hx Heart Attack, Hx Hypercholesterolemia, Hx Hypertension, Hx Peripheral Vascular Disease, Hx Pulmonary Embolism Pulmonary Medical History: Reports: Hx Asthma, Hx COPD, Hx Pneumonia - 1 year ago Neurological Medical History: Reports: Hx Seizures - 4 years ago; Depakote stopped by his physician. Endocrine Medical History: Reports: Hx Diabetes Mellitus Type 1, Hx Diabetes Mellitus Type 2 - IDDM Renal/ Medical History: Reports: Hx Renal Insufficiency. Denies: Hx Peritoneal Dialysis Malignancy Medical History: GI Medical History: Reports: Hx Hepatitis Musculoskeltal Medical History: Reports Hx Arthritis, Reports Hx Musculoskeletal Trauma Skin Medical History: Reports Hx MRSA Psychiatric Medical History: Reports: Hx Anxiety, Hx Bipolar Disorder, Hx Depression, Hx Post Traumatic Stress Disorder Traumatic Medical History: Reports: Hx Fractures - Knee pelvis and hand Infectious Medical History: Reports: Hx Hepatitis, Hx HIV - Patient reports no detectable viral count, Hx MRSA Past Surgical History: Reports: Hx Oral Surgery - Removal of most of teeth, Hx Orthopedic Surgery - right knee replacement, rt toe amputation; amputation 2 left toes., Other - Laser eye surgery PICC line placement, wound debridement - Immunizations Immunizations up to date: Yes Hx Diphtheria, Pertussis, Tetanus Vaccination: Yes Hx Pneumococcal Vaccination: 11/09/13 Vertical Provider Document - CONSTITUTIONAL Agree With Documented VS: Yes Exam Limitations: No Limitations General Appearance: WD/WN, No Apparent Distress - INFECTION CONTROL TRAVEL OUTSIDE OF THE [place] IN LAST 30 DAYS: No - HEENT HEENT: Atraumatic, Conjuctival Injection - NECK Neck: Normal Inspection - RESPIRATORY Respiratory: Breath Sounds Normal O2 Sat by Pulse Oximetry: 96 - CARDIOVASCULAR Cardiovascular: Regular Rate, Regular Rhythm - MUSCULOSKELETAL/EXTREMETIES Musculoskeletal/Extremeties: MAEW, FROM, Tender Notes: There is an approximately 2.5 cm round diabetic foot ulcer on the lateral aspect of the left foot. There is pink granulation tissue noted. There is no discharge of purulent drainage. There is no surrounding erythema. - NEURO Level of Consciousness: Awake, Alert, Appropriate Motor/Sensory: No Motor Deficit, No Sensory Deficit Course - Re-evaluation Re-evalutation: 07/05/17 15:55 There does not appear to be any evidence of acute infection. He is afebrile. He is receiving an unknown antibiotic IV daily via PICC line that is in the right arm. Discussed need to follow-up wound care, podiatry/surgery. Discussed need to avoid cocaine use. Discussed need for primary care follow-up as well. - Vital Signs Vital signs: Temp Pulse Resp BP Pulse Ox 98.4 F 84 20 125/87 H 96 07/05/17 15:16 07/05/17 15:16 07/05/17 15:16 07/05/17 15:16 07/05/17 15:16 Discharge - Discharge Clinical Impression: Diabetic foot ulcer Condition: Good Disposition: HOME, SELF-CARE Instructions: Foot or Leg Ulcer ([facility]) Additional Instructions: Continue with your wound care as scheduled. Continue with your IV antibiotics to your PICC line. Follow-up with your primary care provider as well as the specialists who are caring for your foot wound. Return to the emergency department if worse or for any other problems. Prescriptions: Tramadol HCl 50 mg PO QID PRN #20 tablet PRN Reason: pain
== END 2017-07-05 16:05 | disposition home or self-care (01) ==
LOC: ER 15:14
DX: E11.621 Type 2 diabetes mellitus with foot ulcer (principal); L97.529 Non-pressure chronic ulcer of other part of left foot with unspecified severity; M79.672 Pain in left foot; F14.90 Cocaine use, unspecified, uncomplicated; F17.200 Nicotine dependence, unspecified, uncomplicated
CPT/HCPCS: 99283; A9270

== ENCOUNTER 2017-07-16 11:41 | Inpatient (IN) | payer MEDICARE, MEDICAID ==
--- NOTE | 2017-07-16 12:20 | RADIOLOGY REPORT (SQ) ---
EXAM DESCRIPTION: CHEST SINGLE VIEW COMPLETED DATE/TIME: 07/16/2017 11:54 am REASON FOR STUDY: bed 20 sepsis protocol COMPARISON: 05/26/2017 EXAM PARAMETERS: NUMBER OF VIEWS: One view. TECHNIQUE: Single frontal radiographic view of the chest acquired. RADIATION DOSE: NA LIMITATIONS: None. FINDINGS: LUNGS AND PLEURA: No opacities, masses or pneumothorax. No pleural effusion. MEDIASTINUM AND HILAR STRUCTURES: No masses. Contour normal. HEART AND VASCULAR STRUCTURES: Heart normal in size. Normal vasculature. BONES: No acute findings. HARDWARE: PICC line on the right. Tip of the catheter is in superior cava. OTHER: No other significant finding. IMPRESSION: NO ACUTE RADIOGRAPHIC FINDING IN THE CHEST. TECHNICAL DOCUMENTATION: JOB ID: [id number]
[2017-07-16] MEDS ORDERED: ONDANSETRON HCL INJ/PF 4 MG/2 ML SDV IV ONE (12:25)
[2017-07-16] MEDS ORDERED: ACETAMINOPHEN 325 MG TABLET PO ONE (12:25)
[2017-07-16] MEDS ORDERED: NORMAL SALINE 1000 ML 1,000 ML IV ONE ×2 (12:25→13:28)
[2017-07-16 12:27] LABS: HEMATOCRIT 29.7 % (37.9-51.0); HEMOGLOBIN 9.9 g/dL (13.5-17.0); MEAN CORPUSCULAR HEMOGLOBIN 27.9 pg (27.0-33.4); MEAN CORPUSCULAR HGB CONC 33.3 g/dL (32.0-36.0); MEAN CORPUSCULAR VOLUME 84 fl (80-97); RED BLOOD COUNT 3.55 10^6/uL (4.35-5.55); RED CELL DISTRIBUTION WIDTH 14.3 % (11.5-14.0); WHITE BLOOD COUNT 10.9 10^3/uL (4.0-10.5)
[2017-07-16] MEDS ORDERED: IPRATROPIUM/ALBUTEROL 0.5-2.5 MG/3 ML AMPUL NEB ONE ×2 (12:27→16:05)
--- NOTE | 2017-07-16 12:37 | ER Document Report ---
ED General - General Chief Complaint: Fever Stated Complaint: FLU LIKE SYMPTOMS Time Seen by Provider: 07/16/17 12:07 Mode of Arrival: Medic Information source: Patient, Emergency Med Personnel, [facility] Records Notes: This 46-year-old male patient comes emergency room complaining of 2 day history of shaking, some nausea and vomiting, diarrhea which is getting worse, and now not making urine. He finished a course of clindamycin through PICC line yesterday for osteomyelitis of the left foot. He also reports onset of cough congestion and green and white sputum. He has a history of type 2 diabetes which is poorly controlled, coronary artery disease, hypertension, hyperlipidemia, stage III renal insufficiency, asthma and COPD. He also has prior history of pulmonary embolus, peripheral vascular disease, a seizure disorder where he stopped medication in 2012. He has depression, anxiety, and bipolar disorder. He also suffers from HIV but has a low to nonexistent viral load and chronic pain issues. He does regularly abuse cocaine and marijuana occasionally smokes cigarettes and occasionally drinks alcohol, primarily weekends. He takes quite large doses of Xanax filling a prescription for 60 tablets of 2 mg Xanax 2 days ago TRAVEL OUTSIDE OF THE [place] IN LAST 30 DAYS: No - Related Data Allergies/Adverse Reactions: Penicillins Allergy (Verified 07/05/17 15:16) rash Past Medical History - General Information source: Patient, Emergency Med Personnel, [facility] Records - Social History Smoking Status: Current Some Day Smoker Cigarette use (# per day): Yes Chew tobacco use (# tins/day): No Smoking Education Provided: No Frequency of alcohol use: Occasional Drug Abuse: Cocaine, Marijuana Occupation: Unemployed Lives with: Parents Family History: CAD, COPD, DM, Hyperlipidemia, Hypertension - Past Medical History Cardiac Medical History: Reports: Hx Coronary Artery Disease, Hx Heart Attack, Hx Hypercholesterolemia, Hx Hypertension, Hx Peripheral Vascular Disease, Hx Pulmonary Embolism Pulmonary Medical History: Reports: Hx Asthma, Hx COPD, Hx Pneumonia - 1 year ago Neurological Medical History: Reports: Hx Seizures - Patient had a seizure in 2012. Depakote stopped by his physician. Endocrine Medical History: Reports: Hx Diabetes Mellitus Type 2 - Patient is a poorly compliant, poorly controlled diabetic who uses insulin. Renal/ Medical History: Reports: Hx Renal Insufficiency Malignancy Medical History: GI Medical History: Reports: Hx Hepatitis Musculoskeltal Medical History: Reports Hx Arthritis, Reports Hx Musculoskeletal Trauma Skin Medical History: Reports Hx MRSA Psychiatric Medical History: Reports: Hx Anxiety, Hx Bipolar Disorder, Hx Depression, Hx Post Traumatic Stress Disorder Traumatic Medical History: Reports: Hx Fractures - Knee pelvis and hand Infectious Medical History: Reports: Hx Hepatitis, Hx HIV - Patient reports no detectable viral count, Hx MRSA Past Surgical History: Reports: Hx Oral Surgery - Removal of most of teeth, Hx Orthopedic Surgery - right knee replacement, rt toe amputation; amputation 2 left toes., Other - Laser eye surgery PICC line placement, wound debridement - Immunizations Immunizations up to date: Yes Hx Diphtheria, Pertussis, Tetanus Vaccination: Yes Hx Pneumococcal Vaccination: 11/09/13 Review of Systems - Review of Systems Constitutional: Chills EENT: No symptoms reported Cardiovascular: No symptoms reported Respiratory: Cough, Short of breath, Sputum, Wheezing Gastrointestinal: No symptoms reported Genitourinary: See HPI Musculoskeletal: Other - Chronic pain to the left foot and ankle region Skin: No symptoms reported Hematologic/Lymphatic: No symptoms reported Neurological/Psychological: No symptoms reported Physical Exam - Vital signs Vitals: Temp Resp BP Pulse Ox 99.5 F 25 H 163/115 H 93 07/16/17 12:02 07/16/17 12:02 07/16/17 12:02 07/16/17 12:02 Interpretation: Tachycardic, Febrile - General General appearance: Alert, Anxious In distress: Mild - HEENT Head: Normocephalic, Atraumatic Eyes: Normal Pupils: PERRL Neck: Normal, Supple - Respiratory Respiratory status: Tachypnea Breath sounds: Nonproductive cough, Rhonchi, Wheezing - Cardiovascular Rhythm: Regular, Tachycardia - Heart rate is about 140 Heart sounds: Normal auscultation Murmur: No - Abdominal Inspection: Normal Bowel sounds: Normal Tenderness: Nontender - Back Back: Normal - Extremities General upper extremity: Normal inspection General lower extremity: Other - Left foot is bandaged, he has had some toes removed and has chronic wound does not heal. The ankle is quite swollen which he states is a chronic finding. - Neurological Neuro grossly intact: Yes - Psychological Associated symptoms: Normal affect, Normal mood - Skin Skin Temperature: Hot Skin Moisture: Dry Skin Color: Normal Course - Vital Signs Vital signs: Temp Pulse Resp BP Pulse Ox 99.5 F 17 177/102 H 100 07/16/17 12:02 07/16/17 12:43 07/16/17 12:43 07/16/17 12:43 - Laboratory Result Diagrams: 07/16/17 11:58 07/16/17 11:58 Laboratory results interpreted by me: 07/16/17 07/16/17 07/16/17 11:58 11:58 11:58 WBC 10.9 H RBC 3.55 L Hgb 9.9 L Hct 29.7 L RDW 14.3 H Seg Neuts % (Manual) 84 H Lymphocytes % (Manual) 7 L Monocytes % (Manual) 1 L Abs Neuts (Manual) 9.2 H Absolute Eos (Manual) 0.7 H VBG pCO2 VBG HCO3 BUN 23 H Creatinine 1.57 H Est GFR ( Amer) 57 L Est GFR (Non-Af Amer) 47 L Glucose 205 H Lactic Acid 2.2 H ALT 20 L Alkaline Phosphatase 133 H Urine Protein Urine Glucose (UA) Urine Blood 07/16/17 07/16/17 12:28 14:30 WBC RBC Hgb Hct RDW Seg Neuts % (Manual) Lymphocytes % (Manual) Monocytes % (Manual) Abs Neuts (Manual) Absolute Eos (Manual) VBG pCO2 30.7 L VBG HCO3 17.5 L BUN Creatinine Est GFR ( Amer) Est GFR (Non-Af Amer) Glucose Lactic Acid ALT Alkaline Phosphatase Urine Protein 100 H Urine Glucose (UA) >=500 H Urine Blood SMALL H - Diagnostic Test Radiology reviewed: Image reviewed, Reports reviewed - Chest x-ray does not show an acute process. - EKG Interpretation by Me EKG shows normal: Sinus rhythm, Gonzales, Intervals, QRS Complexes, ST-T Waves Rate: Tachycardia - 139 When compared to previous EKG there are: No significant change - Consults Dr. Michaud Time consulted: 17:50 Consulted provider: will come to ER - Telemetry admit Critical Care Note - Critical Care Note Total time excluding time spent on procedures (mins): 35 Discharge - Discharge Clinical Impression: Acute exacerbation of COPD with asthma, Tachypnea, Chills, Tachycardia Condition: Stable Disposition: ADMITTED INPATIENT Admitting Provider: Hospitalist Unit Admitted: Telemetry Referrals: ANDREIA LÓPEZ MD [Primary Care Provider] - Follow up as needed
[2017-07-16 12:41] LABS: ALANINE AMINOTRANSFERASE 20 U/L (21-72); ALBUMIN 3.9 g/dL (3.5-5.0); ALKALINE PHOSPHATASE 133 U/L (38-126); ANION GAP 14 (5-19); ASPARTATE AMINO TRANSFERASE 20 U/L (17-59); BILIRUBIN,DIRECT 0.4 mg/dL (0.0-0.4); BILIRUBIN,TOTAL 0.5 mg/dL (0.2-1.3); BLOOD UREA NITROGEN 23 mg/dL (7-20); CALCIUM 9.3 mg/dL (8.4-10.2); CARBON DIOXIDE 22 mmol/L (22-30); CHLORIDE 103 mmol/L (98-107); CREATININE RESULT 1.57 mg/dL (0.52-1.25); GLUCOSE 205 mg/dL (75-110); SODIUM 139.4 mmol/L (137-145); TOTAL PROTEIN 8.2 g/dL (6.3-8.2)
[2017-07-16 12:53] LABS: BASOPHILS % (MANUAL) 2 % (0-2); EOSINOPHILS % (MANUAL) 6 % (0-6); LYMPHOCYTES % (MANUAL) 7 % (13-45); TOTAL CELLS COUNTED 100
[2017-07-16 12:54] LABS: HYPOCHROMASIA 1+; OVALOCYTES 1+; POIKILOCYTOSIS 1+; POLYCHROMASIA SLIGHT; ROULEAUX SLIGHT; TOXIC GRANULATION 1+
[2017-07-16 12:54] LABS: APPEARANCE,URINE CLEAR; BILIRUBIN,URINE NEGATIVE (NEGATIVE); GLUCOSE, URINE >=500 mg/dL (NEGATIVE); KETONES,URINE NEGATIVE (NEGATIVE); LEUKOCYTE ESTERASE,URINE NEGATIVE (NEGATIVE); NITRITE,URINE NEGATIVE (NEGATIVE); PROTEIN,URINE 100 mg/dL (NEGATIVE); URINE SPECIFIC GRAVITY 1.011; UROBILINOGEN,URINE NEGATIVE mg/dL (<2.0)
--- NOTE | 2017-07-16 13:54 | EKG REPORT ---
SEVERITY:- OTHERWISE NORMAL ECG - SINUS TACHYCARDIA : Confirmed by: Wesley Zamora MD 16-Jul-2017 13:53:00
[2017-07-16 14:58] LABS: VENOUS BLOOD HCO3 17.5 mmol/L (20-32); VENOUS BLOOD PCO2 30.7 mmHg (35-63); VENOUS BLOOD PH 7.37 (7.30-7.42)
[2017-07-16 15:03] LABS: PROTHROMBIN TIME 14.5 SEC (11.4-15.4)
[2017-07-16] MEDS ORDERED: ALBUTEROL SULFATE 0.083% NEB 2.5 MG/3 ML AMPUL NEB ONE (15:11)
[2017-07-16] MEDS ORDERED: METHYLPREDNISOLONE INJ 125 MG/2 ML SDV IV ONE (17:38)
[2017-07-16] MEDS ORDERED: CLONIDINE HCL 0.1 MG TABLET PO ONE (17:54)
[2017-07-16] MEDS ORDERED: ATENOLOL 50 MG TABLET PO ONE ×2 (17:55→20:30)
[2017-07-16] MEDS ORDERED: IPRATROPIUM/ALBUTEROL 0.5-2.5 MG/3 ML AMPUL NEB PRN (18:24)
[2017-07-16] MEDS ORDERED: ACETAMINOPHEN 325 MG TABLET PO PRN (18:24)
[2017-07-16] MEDS ORDERED: ONDANSETRON 4 MG TAB.RAPDIS PO PRN (18:24)
[2017-07-16] MEDS ORDERED: ZOLPIDEM TARTRATE 15 MG PO PRN (18:36)
[2017-07-16] MEDS ORDERED: DEXTROSE 50%-WATER 25 GM/50 ML DISP.SYRIN IV PRN ×2 (18:38)
[2017-07-16] MEDS ORDERED: DEXTROSE 40% GEL 15 GM TUBE PO PRN ×2 (18:38)
[2017-07-16] MEDS ORDERED: GLUCAGON,HUMAN RECOMB 1 MG INJ IM PRN (18:38)
[2017-07-16] MEDS ORDERED: LIDOCAINE 5% (700 MG) TRANSDERMAL ADH..PATCH TP ONE (18:45)
--- NOTE | 2017-07-16 18:55 | PDOC H&P ---
History of Present Illness Admission Date/PCP: 07/16/2017 ANDREIA LÓPEZ MD Patient complains of: Shortness of breath and Diarrhea History of Present Illness: MILADYS LONDON III is a 46 year old male with complaint of diarrhea for the last few days. Patient states that he has had approximately 6-7 episodes of diarrhea. States that his last diarrhea episode was yesterday. Patient reports that he completed antibiotics recently for foot infection. Patient also reported that he had been vomiting at home. Patient stated he vomited 4 times he denies any blood or mucus states that it was food content. Patient states that currently he feels somewhat queasy. Patient also reports that he has been coughing a lot and noticed that he was having a hard time breathing. Patient denies any history of fever. Patient does admit to sick contacts. Past Medical History Cardiac Medical History: Reports: Coronary Artery Disease, Myocardial Infarction , Hyperlipidema, Hypertension, Peripheral Vascular Disease, Pulmonary Embolism Pulmonary Medical History: Reports: Asthma, Chronic Obstructive Pulmonary Disease (COPD), Pneumonia - 1 year ago Neurological Medical History: Reports: Seizures - Patient had a seizure in 2012. Depakote stopped by his physician. Endocrine Medical History: Reports: Diabetes Mellitus Type 1, Diabetes Mellitus Type 2 - Patient is a poorly compliant, poorly controlled diabetic who uses insulin. Renal/ Medical History: Malignancy Medical History: GI Medical History: Reports: Hepatitis Musculoskeltal Medical History: Reports: Arthritis Psychiatric Medical History: Reports: Bipolar Disorder, Depression, Post Traumatic Stress Disorder Hematology: Reports: Anemia Infectious Medical History: Reports: HIV - Patient reports no detectable viral count, Methicillin-Resistant Staph Aureus Past Surgical History Past Surgical History: Reports: Orthopedic Surgery - right knee replacement, rt toe amputation; amputation 2 left toes., Other - Laser eye surgery PICC line placement, wound debridement Social History Lives with: Parents Smoking Status: Current Some Day Smoker Frequency of Alcohol Use: None Hx Recreational Drug Use: Yes Drugs: Cocaine, Marijuana Hx Prescription Drug Abuse: No Family History Family History: CAD, COPD, DM, Hyperlipidemia, Hypertension Parental Family History Reviewed: Yes Children Family History Reviewed: Yes Sibling(s) Family History Reviewed.: Yes Medication/Allergy Home Medications: Alprazolam [Xanax] 2 mg PO BID 06/08/17 Amitriptyline HCl [Elavil 25 mg Tablet] 25 mg PO DAILY 06/08/17 Aripiprazole [Abilify] 20 mg PO QPM 06/08/17 Atenolol [Tenormin 100 mg Tablet] 100 mg PO DAILY 06/08/17 Clonidine HCl [Catapres 0.1 mg Tablet] 0.1 mg PO Q12 06/08/17 Cyclobenzaprine HCl [Flexeril 10 mg Tablet] 10 mg PO TIDP PRN 06/08/17 Diclofenac Sodium [Diclofenac Sodium ER] 100 mg PO DAILY 06/08/17 Emtricitab/Rilpiviri/Tenof Ala [Odefsey Tablet] 1 each PO DAILY 06/08/17 Ergocalciferol (Vitamin D2) [Drisdol 50,000 unit (1.25MG) Capsule] 50,000 unit PO BARRON@1000 06/08/17 Fluoxetine HCl [Prozac] 40 mg PO DAILY 06/08/17 Fluticasone Propionate [Flonase Nasal [place] 50 Mcg/[place] 16 gm] 2 sprays NASL DAILY 06/08/17 Gabapentin [Neurontin 400 mg Capsule] 400 mg PO BID 06/08/17 Hydralazine HCl [Apresoline 50 mg Tablet] 50 mg PO Q8 06/08/17 Insulin Glargine,Hum.rec.anlog [Lantus Insulin 100 Unit/1 ml 10 ml] 45 unit SUBCUT QHS 06/08/17 Levocetirizine Dihydrochloride [Xyzal] 5 mg PO DAILYP PRN 06/08/17 Prazosin HCl [Minipress] 1 mg PO QHS 06/08/17 Simvastatin [Zocor 20 mg Tablet] 20 mg PO QHS 06/08/17 Sodium Polystyrene Sulfon/Sorb [Sps 15 gm/60 ml Suspension] 30 gm PO MO@1000 Zolpidem Tartrate [Ambien] 15 mg PO HSP PRN 06/08/17 Ertapenem Sodium [Invanz Inj 1 gm Vial] 1 gm IVPB DAILY #25 vial 06/15/17 Hydromorphone HCl [Dilaudid 2 mg Tablet] 4 mg PO Q2HP PRN #10 tablet 06/15/17 Sodium Bicarbonate [Sodium Bicarbonate 650 mg Tablet] 650 mg PO DAILY #30 tablet 06/15/17 Lidocaine [Lidoderm] 1 each TP ONCE #1 adh..patch 06/30/17 Sulfamethoxazole/Trimethoprim [Septra-Ds 800-160 mg Tablet] 1 tab PO BID #14 tablet 06/30/17 Tramadol HCl 50 mg PO QID PRN #20 tablet 07/05/17 Allergies/Adverse Reactions: Penicillins Allergy (Verified 07/05/17 15:16) rash Review of Systems Constitutional: PRESENT: weakness. ABSENT: chills, fever(s), headache(s), weight gain, weight loss Eyes: ABSENT: visual disturbances Ears: ABSENT: hearing changes Cardiovascular: ABSENT: chest pain, dyspnea on exertion, edema, orthropnea, palpitations Respiratory: PRESENT: cough, dyspnea, sputum Gastrointestinal: ABSENT: abdominal pain, constipation, diarrhea, hematemesis, hematochezia, nausea, vomiting Musculoskeletal: ABSENT: joint swelling Integumentary: PRESENT: wounds - Left foot wound with dressing in place. Neurological: ABSENT: abnormal gait, abnormal speech, confusion, dizziness, focal weakness, syncope Psychiatric: ABSENT: anxiety, depression, homidical ideation, suicidal ideation Endocrine: ABSENT: cold intolerance, heat intolerance, polydipsia, polyuria Hematologic/Lymphatic: ABSENT: easy bleeding, easy bruising Physical Exam Vital Signs: Temp Pulse Resp BP Pulse Ox 99.5 F 17 177/102 H 100 07/16/17 12:02 07/16/17 12:43 07/16/17 12:43 07/16/17 12:43 Intake & Output 07/15/17 07/16/17 07/17/17 06:59 06:59 06:59 Weight 119.748 kg General appearance: PRESENT: no acute distress, well-developed, well-nourished Head exam: PRESENT: atraumatic, normocephalic Eye exam: PRESENT: conjunctiva pink, EOMI, PERRLA. ABSENT: scleral icterus Ear exam: PRESENT: normal external ear exam Mouth exam: PRESENT: moist, tongue midline Neck exam: ABSENT: carotid bruit, JVD, lymphadenopathy, thyromegaly Respiratory exam: PRESENT: prolonged expiratory phas, wheezes. ABSENT: rales, rhonchi Cardiovascular exam: PRESENT: RRR. ABSENT: diastolic murmur, rubs, systolic murmur Pulses: PRESENT: normal dorsalis pedis pul Vascular exam: PRESENT: normal capillary refill GI/Abdominal exam: PRESENT: normal bowel sounds, soft. ABSENT: distended, guarding, mass, organolmegaly, rebound, tenderness Rectal exam: PRESENT: deferred Extremities exam: PRESENT: full ROM. ABSENT: calf tenderness, clubbing, pedal edema Musculoskeletal exam: PRESENT: full ROM Neurological exam: PRESENT: alert, awake, oriented to person, oriented to place , oriented to time, oriented to situation, CN II-XII grossly intact. ABSENT: motor sensory deficit Psychiatric exam: PRESENT: appropriate affect, normal mood. ABSENT: homicidal ideation, suicidal ideation Skin exam: PRESENT: other - Left food lateral wound with dressing in place. Results Laboratory Results: 07/16/17 11:58 07/16/17 11:58 07/16/17 07/16/17 07/16/17 11:58 11:58 11:58 WBC 10.9 H RBC 3.55 L Hgb 9.9 L Hct 29.7 L MCV 84 MCH 27.9 MCHC 33.3 RDW 14.3 H Plt Count 214 Seg Neutrophils % Not Reportable Lymphocytes % Not Reportable Monocytes % Not Reportable Eosinophils % Not Reportable Basophils % Not Reportable Absolute Neutrophils Not Reportable Absolute Lymphocytes Not Reportable Absolute Monocytes Not Reportable Absolute Eosinophils Not Reportable Absolute Basophils Not Reportable VBG pH VBG pCO2 VBG HCO3 VBG Base Excess Sodium 139.4 Potassium 5.0 Chloride 103 Carbon Dioxide 22 Anion Gap 14 BUN 23 H Creatinine 1.57 H Est GFR ( Amer) 57 L Est GFR (Non-Af Amer) 47 L Glucose 205 H Lactic Acid 2.2 H Calcium 9.3 Total Bilirubin 0.5 AST 20 ALT 20 L Alkaline Phosphatase 133 H Total Protein 8.2 Albumin 3.9 Urine Color Urine Appearance Urine pH Ur Specific Spencer Urine Protein Urine Glucose (UA) Urine Ketones Urine Blood Urine Nitrite Ur Leukocyte Esterase Urine WBC (Auto) Urine RBC (Auto) 07/16/17 07/16/17 07/16/17 12:28 14:30 16:56 WBC RBC Hgb Hct MCV MCH MCHC RDW Plt Count Seg Neutrophils % Lymphocytes % Monocytes % Eosinophils % Basophils % Absolute Neutrophils Absolute Lymphocytes Absolute Monocytes Absolute Eosinophils Absolute Basophils VBG pH 7.37 VBG pCO2 30.7 L VBG HCO3 17.5 L VBG Base Excess -7.0 Sodium Potassium Chloride Carbon Dioxide Anion Gap BUN Creatinine Est GFR ( Amer) Est GFR (Non-Af Amer) Glucose Lactic Acid 0.9 Calcium Total Bilirubin AST ALT Alkaline Phosphatase Total Protein Albumin Urine Color YELLOW Urine Appearance CLEAR Urine pH 5.0 Ur Specific Spencer 1.011 Urine Protein 100 H Urine Glucose (UA) >=500 H Urine Ketones NEGATIVE Urine Blood SMALL H Urine Nitrite NEGATIVE Ur Leukocyte Esterase NEGATIVE Urine WBC (Auto) 0 Urine RBC (Auto) 2 Impressions: Chest X-Ray 07/16/17 11:43 IMPRESSION: NO ACUTE RADIOGRAPHIC FINDING IN THE CHEST. Assessment & Plan - Diagnosis (1) Acute respiratory failure with hypoxia Is this a current diagnosis for this admission?: Yes Plan: Pt given breathing treatment in ER. Will continue nasal canula. Will continue breathing treatment and steroids. (2) Acute exacerbation of COPD with asthma Is this a current diagnosis for this admission?: Yes Plan: Breathing treatment and steroid. (3) Acute kidney injury superimposed on chronic kidney disease Is this a current diagnosis for this admission?: Yes Plan: Will given IVF. Pt could have component of ATN. Will check renal ultrasound. (4) Diabetes Qualifiers: Diabetes mellitus type: type 2 Diabetes mellitus complication detail: with polyneuropathy Diabetes mellitus senior living insulin use: with senior living use Is this a current diagnosis for this admission?: Yes Plan: Will continue SSI with long acting insulin. (5) Diabetic infection of left foot Is this a current diagnosis for this admission?: Yes Plan: Wound care. (6) Tobacco abuse Is this a current diagnosis for this admission?: Yes Plan: Encourage discontinuing smoking. (7) Bipolar disorder Qualifiers: Active/Remission status: remission status unspecified Qualified Code(s): F31.9 - Bipolar disorder, unspecified Is this a current diagnosis for this admission?: Yes Plan: continue home medication. (8) Cocaine abuse Is this a current diagnosis for this admission?: Yes Plan: Supportive care. (9) DVT prophylaxis Is this a current diagnosis for this admission?: Yes Plan: SCD - Time Time Spent: 30 to 50 Minutes
[2017-07-16] MEDS ORDERED: ZOLPIDEM TARTRATE 5 MG TABLET PO PRN (19:46)
[2017-07-16] MEDS ORDERED: CETIRIZINE 5 MG TABLET PO PRN (19:46)
[2017-07-16] MEDS ORDERED: ARIPIPRAZOLE 5 MG TABLET PO ONE (20:30)
[2017-07-16] MEDS ORDERED: FLUOXETINE HCL 20 MG CAPSULE PO ONE (20:30)
[2017-07-16] MEDS: HYDRALAZINE HCL INJ/PF 20 MG/1 ML SDV IV PRN (21:40)
[2017-07-16] MEDS ORDERED: (PENDING PHARMACY ID) (Prazosin Hcl [Minipress] 1 MG) PO SCH (22:00)
[2017-07-16] MEDS ORDERED: INSULIN GLARGINE,HUM.REC.ANLOG 1,000 UNIT/10 ML UNIT SUBCUT SCH (22:00)
[2017-07-16] MEDS: ALPRAZOLAM 0.5 MG TABLET PO SCH (22:08)
[2017-07-16] MEDS: SIMVASTATIN 10 MG TABLET PO SCH (22:15)
[2017-07-16] MEDS: HYDRALAZINE HCL 50 MG TABLET PO SCH (22:16)
[2017-07-16] MEDS: CLONIDINE HCL 0.1 MG TABLET PO SCH (22:16)
[2017-07-17 00:23] LABS: URINE BARBITURATES SCREEN NEGATIVE; URINE METHADONE SCREEN NEGATIVE; URINE OPIATES LOW NEGATIVE; URINE PHENCYCLIDINE SCREEN NEGATIVE
[2017-07-17] MEDS: HYDRALAZINE HCL INJ/PF 20 MG/1 ML SDV IV PRN ×4 (00:30→19:50)
--- NOTE | 2017-07-17 01:06 | RADIOLOGY REPORT (SQ) ---
EXAM DESCRIPTION: U/S [employer] COMPLETED DATE/TIME: 07/17/2017 12:42 am REASON FOR STUDY: acute renal injury COMPARISON: Renal ultrasound 08/28/2016 TECHNIQUE: Grayscale images acquired of the kidneys and bladder and recorded on PACS. Additional neda ected color Doppler images recorded. LIMITATIONS: Portable technique. FINDINGS: RIGHT KIDNEY: Measures 12.6 cm. Normal echogenicity. No hydronephrosis. No calcificat ions. LEFT KIDNEY: The superior pole was poorly visualized. Measures 11.4 cm. Normal echogenicity. No hydronephrosis. No calcifications. BLADDER: Distended urinary bladder. The right ureteral jet was visualized. IMPRESSION: No hydronephrosis. TECHNICAL DOCUMENTATION: JOB ID: [id number] [email or web address]- All Rights Reserved
[2017-07-17] MEDS: HYDRALAZINE HCL 50 MG TABLET PO SCH ×3 (05:17→22:00)
[2017-07-17 06:56] LABS: ANION GAP 14 (5-19); BLOOD UREA NITROGEN 22 mg/dL (7-20); CALCIUM 9.2 mg/dL (8.4-10.2); CARBON DIOXIDE 21 mmol/L (22-30); CHLORIDE 100 mmol/L (98-107); CREATININE RESULT 1.36 mg/dL (0.52-1.25); POTASSIUM 5.4 mmol/L (3.6-5.0); SODIUM 135.3 mmol/L (137-145)
[2017-07-17] MEDS: INSULIN LISPRO 100 UNIT/ML 3 ML VIAL SUBCUT PRN ×2 (06:57→12:55)
[2017-07-17] MEDS ORDERED: INSULIN LISPRO 100 UNIT/ML 3 ML VIAL SUBCUT ONE (06:58)
[2017-07-17 07:03] LABS: HEMATOCRIT 31.4 % (37.9-51.0); HEMOGLOBIN 9.8 g/dL (13.5-17.0); MEAN CORPUSCULAR HEMOGLOBIN 26.6 pg (27.0-33.4); MEAN CORPUSCULAR HGB CONC 31.4 g/dL (32.0-36.0); MEAN CORPUSCULAR VOLUME 85 fl (80-97); RED BLOOD COUNT 3.71 10^6/uL (4.35-5.55); RED CELL DISTRIBUTION WIDTH 14.8 % (11.5-14.0); WHITE BLOOD COUNT 13.8 10^3/uL (4.0-10.5)
[2017-07-17 07:06] LABS: GLUCOSE 447 mg/dL (75-110)
[2017-07-17 07:19] LABS: BASOPHILS % (MANUAL) 0 % (0-2); EOSINOPHILS % (MANUAL) 0 % (0-6); LYMPHOCYTES % (MANUAL) 6 % (13-45); TOTAL CELLS COUNTED 100
[2017-07-17 07:20] LABS: ANISOCYTOSIS SLIGHT
[2017-07-17 07:21] LABS: OVALOCYTES SLIGHT; TARGET CELLS SLIGHT; TEAR DROP CELLS SLIGHT
[2017-07-17 07:22] LABS: ROULEAUX SLIGHT
[2017-07-17] MEDS ORDERED: [UNRECOGNIZED DRUG - OTHER] PO SCH (10:00)
[2017-07-17] MEDS ORDERED: (PENDING PHARMACY ID) (Atenolol [Tenormin 100 Mg Tablet] 100 MG) PO SCH (10:00)
[2017-07-17] MEDS: CLONIDINE HCL 0.1 MG TABLET PO SCH ×2 (10:31→22:00)
[2017-07-17] MEDS: GABAPENTIN 400 MG CAPSULE PO SCH ×2 (10:32→22:01)
[2017-07-17] MEDS: FLUOXETINE HCL 20 MG CAPSULE PO SCH (10:32)
[2017-07-17] MEDS: AMITRIPTYLINE HCL 25 MG TABLET PO SCH (10:32)
[2017-07-17] MEDS: ALPRAZOLAM 0.5 MG TABLET PO SCH ×2 (10:33→22:00)
[2017-07-17] MEDS: SODIUM BICARBONATE 650 MG TABLET PO SCH (10:34)
[2017-07-17] MEDS: FLUTICASONE NASAL SPRAY 50 MCG/SPRY 120 SPRAY/16 GM NASL SCH (10:35)
[2017-07-17] MEDS: ATENOLOL 50 MG TABLET PO SCH (10:40)
[2017-07-17] MEDS ORDERED: VANCOMYCIN HCL 0 MG in DEXTROSE 5%-WATER 250 ML IV NR (15:00)
--- NOTE | 2017-07-17 15:22 | PDOC PROGRESS REPORT ---
Subjective Progress Note for:: 07/17/17 Subjective:: Pt states that he is breathing better. Micro called to report that pt has Enterococcus growing from PICC line blood culture. Physical Exam Vital Signs: Temp Pulse Resp BP Pulse Ox 97.4 F 75 16 123/81 97 07/17/17 11:28 07/17/17 14:14 07/17/17 14:14 07/17/17 11:28 07/17/17 14:14 Intake & Output 07/16/17 07/17/17 07/18/17 06:59 06:59 06:59 Intake Total 1380 Output Total 3720 Balance -2340 Weight 107.7 kg General appearance: PRESENT: no acute distress, well-developed, well-nourished Head exam: PRESENT: atraumatic, normocephalic Eye exam: PRESENT: conjunctiva pink, EOMI. ABSENT: scleral icterus Ear exam: PRESENT: normal external ear exam Mouth exam: PRESENT: moist, tongue midline Neck exam: ABSENT: carotid bruit, JVD, lymphadenopathy, thyromegaly Respiratory exam: PRESENT: clear to auscultation vanessa. ABSENT: rales, rhonchi, wheezes Cardiovascular exam: PRESENT: RRR. ABSENT: diastolic murmur, rubs, systolic murmur Pulses: PRESENT: normal dorsalis pedis pul Vascular exam: PRESENT: normal capillary refill GI/Abdominal exam: PRESENT: normal bowel sounds, soft. ABSENT: distended, guarding, mass, organolmegaly, rebound, tenderness Rectal exam: PRESENT: deferred Extremities exam: PRESENT: full ROM. ABSENT: calf tenderness, clubbing, pedal edema Neurological exam: PRESENT: alert, awake, oriented to person, oriented to place , oriented to time, oriented to situation, CN II-XII grossly intact. ABSENT: motor sensory deficit Psychiatric exam: PRESENT: appropriate affect, normal mood. ABSENT: homicidal ideation, suicidal ideation Skin exam: PRESENT: other - Left lateral aspect of foot with dressing in place. Results Laboratory Results: 07/17/17 05:47 07/17/17 05:47 07/17/17 07/17/17 05:47 05:47 WBC 13.8 H RBC 3.71 L Hgb 9.8 L Hct 31.4 L MCV 85 MCH 26.6 L MCHC 31.4 L RDW 14.8 H Plt Count 242 Seg Neutrophils % Not Reportable Lymphocytes % Not Reportable Monocytes % Not Reportable Eosinophils % Not Reportable Basophils % Not Reportable Absolute Neutrophils Not Reportable Absolute Lymphocytes Not Reportable Absolute Monocytes Not Reportable Absolute Eosinophils Not Reportable Absolute Basophils Not Reportable Sodium 135.3 L Potassium 5.4 H Chloride 100 Carbon Dioxide 21 L Anion Gap 14 BUN 22 H Creatinine 1.36 H Est GFR ( Amer) > 60 Est GFR (Non-Af Amer) 56 L Glucose 447 H* Calcium 9.2 Magnesium 2.0 Impressions: Renal Ultrasound 07/16/17 00:00 IMPRESSION: No hydronephrosis. Chest X-Ray 07/16/17 11:43 IMPRESSION: NO ACUTE RADIOGRAPHIC FINDING IN THE CHEST. Assessment & Plan - Diagnosis (1) Sepsis Qualifiers: Sepsis type: sepsis due to unspecified organism Qualified Code(s): A41.9 - Sepsis, unspecified organism Is this a current diagnosis for this admission?: Yes Plan: Secondary to enterococcus from PICC: We will place patient on vancomycin until more information known. Will have PICC line removed and tip of PICC line cultured. Pt has a Penicillin allergy. Will obtain 2 D echo. (2) Acute respiratory failure with hypoxia Is this a current diagnosis for this admission?: Yes Plan: Resolved. (3) Acute exacerbation of COPD with asthma Is this a current diagnosis for this admission?: Yes Plan: Resolved. (4) Acute kidney injury superimposed on chronic kidney disease Is this a current diagnosis for this admission?: Yes Plan: Renal function improving. Will continue to monitor. 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 Will continue SSI and Long acting insulin. Pt was given steroids by ER. (6) Diabetic infection of left foot Is this a current diagnosis for this admission?: Yes Plan: Pt has completed treatment. (7) Tobacco abuse Is this a current diagnosis for this admission?: Yes Plan: Encourage discontinuing smoking. (8) Hyperkalemia Is this a current diagnosis for this admission?: Yes Plan: Will check BMP in am. Pt is receiving insulin. (9) Bipolar disorder Qualifiers: Active/Remission status: remission status unspecified Qualified Code(s): F31.9 - Bipolar disorder, unspecified Is this a current diagnosis for this admission?: Yes Plan: continue home medication. (10) Cocaine abuse Is this a current diagnosis for this admission?: Yes Plan: Supportive care. (11) DVT prophylaxis Is this a current diagnosis for this admission?: Yes Plan: SCD - Time Time Spent with patient: 25-34 minutes
[2017-07-17] MEDS ORDERED: (PENDING PHARMACY ID) (Aripiprazole [Abilify] 20 MG) PO SCH (18:00)
[2017-07-17] MEDS: INSULIN LISPRO 100 UNIT/ML 3 ML VIAL SUBCUT SCH (18:19)
[2017-07-17] MEDS: ARIPIPRAZOLE 5 MG TABLET PO SCH (18:26)
[2017-07-17] MEDS: VANCOMYCIN HCL 1,250 MG in DEXTROSE 5%-WATER 250 ML IV SCH (18:27)
[2017-07-17] MEDS: TRAMADOL HCL 50 MG TABLET PO PRN (19:39)
[2017-07-17] MEDS: SIMVASTATIN 10 MG TABLET PO SCH (21:59)
[2017-07-17] MEDS ORDERED: INSULIN GLARGINE,HUM.REC.ANLOG 1,000 UNIT/10 ML UNIT SUBCUT SCH (22:00)
[2017-07-18] MEDS: HYDRALAZINE HCL INJ/PF 20 MG/1 ML SDV IV PRN ×4 (00:21→18:31)
[2017-07-18] MEDS: NORMAL SALINE 1000 ML 1,000 ML IV PRN ×2 (03:18→15:34)
[2017-07-18 04:53] LABS: ABSOLUTE EOSINOPHILS # (AUTO) 0.1 10^3/uL (0.0-0.6); ABSOLUTE LYMPHOCYTES (AUTO) 1.8 10^3/uL (0.5-4.7); ABSOLUTE MONOCYTES (AUTO) 0.7 10^3/uL (0.1-1.4); ABSOLUTE NEUT (AUTO) 9.1 10^3/uL (1.7-8.2); BASOPHILS % (AUTO) 0.4 % (0-2); EOSINOPHILS % (AUTO) 0.5 % (0-6); HEMATOCRIT 29.5 % (37.9-51.0); HEMOGLOBIN 9.6 g/dL (13.5-17.0); HGB HCT DIFFERENCE -0.7; LYMPHOCYTES % (AUTO) 15.6 % (13-45); MEAN CORPUSCULAR HEMOGLOBIN 27.1 pg (27.0-33.4); MEAN CORPUSCULAR HGB CONC 32.6 g/dL (32.0-36.0); MEAN CORPUSCULAR VOLUME 83 fl (80-97); MONOCYTES % (AUTO) 6.1 % (3-13); RED BLOOD COUNT 3.55 10^6/uL (4.35-5.55); RED CELL DISTRIBUTION WIDTH 14.5 % (11.5-14.0); SEGMENTED NEUTROPHILS % (AUTO) 77.4 % (42-78); WHITE BLOOD COUNT 11.7 10^3/uL (4.0-10.5)
[2017-07-18 05:08] LABS: ANION GAP 14 (5-19); BLOOD UREA NITROGEN 30 mg/dL (7-20); CALCIUM 9.5 mg/dL (8.4-10.2); CARBON DIOXIDE 23 mmol/L (22-30); CHLORIDE 100 mmol/L (98-107); GLUCOSE 286 mg/dL (75-110); POTASSIUM 4.7 mmol/L (3.6-5.0); SODIUM 136.5 mmol/L (137-145)
[2017-07-18] MEDS: HYDRALAZINE HCL 50 MG TABLET PO SCH ×3 (05:54→23:24)
[2017-07-18] MEDS ORDERED: VANCOMYCIN HCL INJ 500 MG VIAL IV PRN (05:56)
[2017-07-18] MEDS ORDERED: VANCOMYCIN HCL INJ 1000 MG VIAL IV PRN (05:56)
[2017-07-18] MEDS: INSULIN LISPRO 100 UNIT/ML 3 ML VIAL SUBCUT PRN ×3 (05:56→18:27)
[2017-07-18] MEDS: TRAMADOL HCL 50 MG TABLET PO PRN ×2 (06:48→14:45)
[2017-07-18] MEDS: VANCOMYCIN HCL 1,250 MG in DEXTROSE 5%-WATER 250 ML IV SCH ×2 (06:49→18:26)
[2017-07-18] MEDS: INSULIN LISPRO 100 UNIT/ML 3 ML VIAL SUBCUT SCH ×3 (08:49→18:27)
[2017-07-18] MEDS: ALPRAZOLAM 0.5 MG TABLET PO SCH ×2 (09:50→22:32)
[2017-07-18] MEDS: CLONIDINE HCL 0.1 MG TABLET PO SCH ×2 (09:51→22:22)
[2017-07-18] MEDS: AMITRIPTYLINE HCL 25 MG TABLET PO SCH (09:51)
[2017-07-18] MEDS: SODIUM BICARBONATE 650 MG TABLET PO SCH (09:52)
[2017-07-18] MEDS: ATENOLOL 50 MG TABLET PO SCH (09:52)
[2017-07-18] MEDS: FLUOXETINE HCL 20 MG CAPSULE PO SCH (09:52)
[2017-07-18] MEDS: GABAPENTIN 400 MG CAPSULE PO SCH ×2 (09:52→22:32)
[2017-07-18] MEDS: FLUTICASONE NASAL SPRAY 50 MCG/SPRY 120 SPRAY/16 GM NASL SCH (09:53)
[2017-07-18] MEDS: CYCLOBENZAPRINE HCL 10 MG TABLET PO PRN (10:02)
--- NOTE | 2017-07-18 11:26 | PDOC PROGRESS REPORT ---
Subjective Progress Note for:: 07/18/17 Subjective:: Pt states that he is wheezing. Pt states that has had chills last night. Physical Exam Vital Signs: Temp Pulse Resp BP Pulse Ox 97.4 F 70 12 138/88 H 99 07/18/17 08:41 07/18/17 08:41 07/18/17 08:41 07/18/17 08:41 07/18/17 08:41 Intake & Output 07/17/17 07/18/17 07/19/17 06:59 06:59 06:59 Intake Total 1380 4510 Output Total 3720 3100 Balance -2340 1410 Weight 107.7 kg 107 kg General appearance: PRESENT: no acute distress, well-developed, well-nourished Head exam: PRESENT: atraumatic, normocephalic Eye exam: PRESENT: conjunctiva pink, EOMI. ABSENT: scleral icterus Ear exam: PRESENT: normal external ear exam Mouth exam: PRESENT: moist, tongue midline Neck exam: ABSENT: carotid bruit, JVD, lymphadenopathy, thyromegaly Respiratory exam: PRESENT: other - + Scant wheeze which cleared with coughing, No prolonged exp phase. Cardiovascular exam: PRESENT: RRR. ABSENT: diastolic murmur, rubs, systolic murmur Pulses: PRESENT: normal dorsalis pedis pul GI/Abdominal exam: PRESENT: normal bowel sounds, soft. ABSENT: distended, guarding, mass, organolmegaly, rebound, tenderness Rectal exam: PRESENT: deferred Extremities exam: PRESENT: full ROM. ABSENT: calf tenderness, clubbing, pedal edema Neurological exam: PRESENT: alert, awake, oriented to person, oriented to place , oriented to time, oriented to situation, CN II-XII grossly intact. ABSENT: motor sensory deficit Psychiatric exam: PRESENT: appropriate affect, normal mood. ABSENT: homicidal ideation, suicidal ideation Skin exam: PRESENT: other - Left foot with dressing in place. Results Laboratory Results: 07/18/17 04:06 07/18/17 04:06 07/18/17 07/18/17 04:06 04:06 WBC 11.7 H RBC 3.55 L Hgb 9.6 L Hct 29.5 L MCV 83 MCH 27.1 MCHC 32.6 RDW 14.5 H Plt Count 256 Seg Neutrophils % 77.4 Lymphocytes % 15.6 Monocytes % 6.1 Eosinophils % 0.5 Basophils % 0.4 Absolute Neutrophils 9.1 H Absolute Lymphocytes 1.8 Absolute Monocytes 0.7 Absolute Eosinophils 0.1 Absolute Basophils 0.0 Sodium 136.5 L Potassium 4.7 Chloride 100 Carbon Dioxide 23 Anion Gap 14 BUN 30 H Creatinine 1.50 H Est GFR ( Amer) > 60 Est GFR (Non-Af Amer) 50 L Glucose 286 H Calcium 9.5 Impressions: Renal Ultrasound 07/16/17 00:00 IMPRESSION: No hydronephrosis. Chest X-Ray 07/16/17 11:43 IMPRESSION: NO ACUTE RADIOGRAPHIC FINDING IN THE CHEST. Assessment & Plan - Diagnosis (1) Sepsis Qualifiers: Sepsis type: sepsis due to unspecified organism Qualified Code(s): A41.9 - Sepsis, unspecified organism Is this a current diagnosis for this admission?: Yes Plan: Secondary to enterococcus from PICC: Vancomycin until more information known. PICC line removed and tip of PICC line culture pending. Pt has a Penicillin allergy. 2 D echo pending. (2) Acute respiratory failure with hypoxia Is this a current diagnosis for this admission?: Yes Plan: Resolved. (3) Acute exacerbation of COPD with asthma Is this a current diagnosis for this admission?: Yes Plan: Resolved. Will continue breathing treatments. 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 Pt was given steroids by ER. (5) Acute kidney injury superimposed on chronic kidney disease Is this a current diagnosis for this admission?: Yes Plan: Renal function improving. Will continue to monitor. (6) Diabetic infection of left foot Is this a current diagnosis for this admission?: Yes Plan: Pt has completed treatment. Pt will need to follow up with outpatient physician. (7) Tobacco abuse Is this a current diagnosis for this admission?: Yes Plan: Encourage discontinuing smoking. (8) Hyperkalemia Is this a current diagnosis for this admission?: Yes Plan: Resolved. (9) Bipolar disorder Qualifiers: Active/Remission status: remission status unspecified Qualified Code(s): F31.9 - Bipolar disorder, unspecified Is this a current diagnosis for this admission?: Yes Plan: continue home medication. (10) Cocaine abuse Is this a current diagnosis for this admission?: Yes Plan: Supportive care. (11) DVT prophylaxis Is this a current diagnosis for this admission?: Yes Plan: SCD - Time Time Spent with patient: 15-24 minutes Anticipated discharge: Home
[2017-07-18] MEDS ORDERED: POLYETHYLENE GLYCOL 3350 POWDER 17 GM/1 PACKET PO PRN (16:47)
[2017-07-18] MEDS ORDERED: BISACODYL 10 MG SUPP.RECT PR ONE (16:48)
[2017-07-18] MEDS: ARIPIPRAZOLE 5 MG TABLET PO SCH (18:25)
[2017-07-18] MEDS ORDERED: INSULIN GLARGINE,HUM.REC.ANLOG 1,000 UNIT/10 ML UNIT SUBCUT SCH (22:00)
[2017-07-18] MEDS: SIMVASTATIN 10 MG TABLET PO SCH (22:33)
[2017-07-19] MEDS: HYDRALAZINE HCL INJ/PF 20 MG/1 ML SDV IV PRN ×4 (01:27→17:47)
[2017-07-19] MEDS: NORMAL SALINE 1000 ML 1,000 ML IV PRN (04:44)
[2017-07-19] MEDS: INSULIN LISPRO 100 UNIT/ML 3 ML VIAL SUBCUT PRN ×4 (05:11→22:22)
[2017-07-19] MEDS: HYDRALAZINE HCL 50 MG TABLET PO SCH ×3 (05:11→22:12)
[2017-07-19] MEDS: VANCOMYCIN HCL 1,250 MG in DEXTROSE 5%-WATER 250 ML IV SCH (05:53)
[2017-07-19 05:57] LABS: ABSOLUTE EOSINOPHILS # (AUTO) 0.2 10^3/uL (0.0-0.6); ABSOLUTE LYMPHOCYTES (AUTO) 1.7 10^3/uL (0.5-4.7); ABSOLUTE MONOCYTES (AUTO) 0.5 10^3/uL (0.1-1.4); ABSOLUTE NEUT (AUTO) 3.1 10^3/uL (1.7-8.2); BASOPHILS % (AUTO) 0.6 % (0-2); EOSINOPHILS % (AUTO) 3.8 % (0-6); HEMATOCRIT 29.8 % (37.9-51.0); HEMOGLOBIN 9.9 g/dL (13.5-17.0); HGB HCT DIFFERENCE -0.1; LYMPHOCYTES % (AUTO) 30.8 % (13-45); MEAN CORPUSCULAR HEMOGLOBIN 28.2 pg (27.0-33.4); MEAN CORPUSCULAR HGB CONC 33.4 g/dL (32.0-36.0); MEAN CORPUSCULAR VOLUME 85 fl (80-97); MONOCYTES % (AUTO) 8.8 % (3-13); RED BLOOD COUNT 3.52 10^6/uL (4.35-5.55); RED CELL DISTRIBUTION WIDTH 14.8 % (11.5-14.0); WHITE BLOOD COUNT 5.5 10^3/uL (4.0-10.5)
[2017-07-19 06:15] LABS: ANION GAP 10 (5-19); BLOOD UREA NITROGEN 29 mg/dL (7-20); CALCIUM 9.7 mg/dL (8.4-10.2); CARBON DIOXIDE 24 mmol/L (22-30); CHLORIDE 103 mmol/L (98-107); CREATININE RESULT 1.35 mg/dL (0.52-1.25); GLUCOSE 375 mg/dL (75-110); POTASSIUM 5.1 mmol/L (3.6-5.0); SODIUM 137.3 mmol/L (137-145)
[2017-07-19] MEDS: INSULIN LISPRO 100 UNIT/ML 3 ML VIAL SUBCUT SCH ×3 (09:22→17:37)
[2017-07-19] MEDS: ATENOLOL 50 MG TABLET PO SCH (09:24)
[2017-07-19] MEDS: FLUTICASONE NASAL SPRAY 50 MCG/SPRY 120 SPRAY/16 GM NASL SCH (09:24)
[2017-07-19] MEDS: AMITRIPTYLINE HCL 25 MG TABLET PO SCH (09:25)
[2017-07-19] MEDS: GABAPENTIN 400 MG CAPSULE PO SCH ×2 (09:25→22:13)
[2017-07-19] MEDS: CLONIDINE HCL 0.1 MG TABLET PO SCH ×2 (09:25→22:13)
[2017-07-19] MEDS: ERGOCALCIFEROL (VITAMIN D2) 50000 UNIT (1.25 MG) CAPSULE PO SCH (09:25)
[2017-07-19] MEDS: SODIUM BICARBONATE 650 MG TABLET PO SCH (09:26)
[2017-07-19] MEDS: FLUOXETINE HCL 20 MG CAPSULE PO SCH (09:26)
[2017-07-19] MEDS: TRAMADOL HCL 50 MG TABLET PO PRN (09:26)
[2017-07-19] MEDS: ALPRAZOLAM 0.5 MG TABLET PO SCH ×2 (09:26→22:12)
--- NOTE | 2017-07-19 11:23 | PDOC PROGRESS REPORT ---
Subjective Progress Note for:: 07/19/17 Subjective:: Pt states that he is doing ok this morning. Pt states that he lost his balance this morning. Pt states that he breathing has improved. Micro called this morning with updates on blood culture from PICC line. Pt has Stenotrophomonas maltophilia in blood culture. Physical Exam Vital Signs: Temp Pulse Resp BP Pulse Ox 97.7 F 81 16 148/94 H 100 07/19/17 08:44 07/19/17 08:44 07/19/17 08:44 07/19/17 08:44 07/19/17 08:44 Intake & Output 07/18/17 07/19/17 07/20/17 06:59 06:59 06:59 Intake Total 4510 4087 Output Total 3100 1225 Balance 1410 2862 Weight 107 kg General appearance: PRESENT: no acute distress, well-developed, well-nourished Head exam: PRESENT: atraumatic, normocephalic Eye exam: PRESENT: conjunctiva pink, EOMI, PERRLA. ABSENT: scleral icterus Ear exam: PRESENT: normal external ear exam Mouth exam: PRESENT: moist, tongue midline Neck exam: ABSENT: carotid bruit, JVD, lymphadenopathy, thyromegaly Respiratory exam: PRESENT: clear to auscultation vanessa. ABSENT: rales, rhonchi, wheezes Cardiovascular exam: PRESENT: RRR. ABSENT: diastolic murmur, rubs, systolic murmur Pulses: PRESENT: normal dorsalis pedis pul Vascular exam: PRESENT: normal capillary refill GI/Abdominal exam: PRESENT: normal bowel sounds, soft. ABSENT: distended, guarding, mass, organolmegaly, rebound, tenderness Rectal exam: PRESENT: deferred Extremities exam: PRESENT: full ROM. ABSENT: calf tenderness, clubbing, pedal edema Neurological exam: PRESENT: alert, awake, oriented to person, oriented to place , oriented to time, oriented to situation, CN II-XII grossly intact. ABSENT: motor sensory deficit Psychiatric exam: PRESENT: appropriate affect, normal mood. ABSENT: homicidal ideation, suicidal ideation Skin exam: PRESENT: other - + left foot with dressing in place Results Laboratory Results: 07/19/17 05:30 07/19/17 05:30 07/19/17 07/19/17 05:30 05:30 WBC 5.5 RBC 3.52 L Hgb 9.9 L Hct 29.8 L MCV 85 MCH 28.2 MCHC 33.4 RDW 14.8 H Plt Count 290 Seg Neutrophils % 56.0 Lymphocytes % 30.8 Monocytes % 8.8 Eosinophils % 3.8 Basophils % 0.6 Absolute Neutrophils 3.1 Absolute Lymphocytes 1.7 Absolute Monocytes 0.5 Absolute Eosinophils 0.2 Absolute Basophils 0.0 Sodium 137.3 Potassium 5.1 H Chloride 103 Carbon Dioxide 24 Anion Gap 10 BUN 29 H Creatinine 1.35 H Est GFR ( Amer) > 60 Est GFR (Non-Af Amer) 56 L Glucose 375 H Calcium 9.7 07/16/17 23:40 Nasophary ([facility] Only) MRSA Surveillance Culture - Final NO MRSA RECOVERED Impressions: Renal Ultrasound 07/16/17 00:00 IMPRESSION: No hydronephrosis. Chest X-Ray 07/16/17 11:43 IMPRESSION: NO ACUTE RADIOGRAPHIC FINDING IN THE CHEST. Assessment & Plan - Diagnosis (1) Sepsis Qualifiers: Sepsis type: sepsis due to unspecified organism Qualified Code(s): A41.9 - Sepsis, unspecified organism Is this a current diagnosis for this admission?: Yes Plan: Secondary to Enterococcus and Stenotrophomonas from PICC: Vancomycin and add bactrim. Will monitor renal function. Pt has a Penicillin allergy. 2 D echo pending. (2) Acute respiratory failure with hypoxia Is this a current diagnosis for this admission?: Yes Plan: Resolved. (3) Acute exacerbation of COPD with asthma Is this a current diagnosis for this admission?: Yes Plan: Resolved. Will continue breathing treatments. 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 on scheduled insulin with SSI. (5) Acute kidney injury superimposed on chronic kidney disease Is this a current diagnosis for this admission?: Yes Plan: Renal function improving. Will continue to monitor. (6) Diabetic infection of left foot Is this a current diagnosis for this admission?: Yes Plan: Pt has completed treatment. Pt will need to follow up with outpatient physician. (7) Tobacco abuse Is this a current diagnosis for this admission?: Yes Plan: Encourage discontinuing smoking. (8) Hyperkalemia Is this a current diagnosis for this admission?: Yes Plan: Resolved. May have to place on Low Potassium diet. (9) Bipolar disorder Qualifiers: Active/Remission status: remission status unspecified Qualified Code(s): F31.9 - Bipolar disorder, unspecified Is this a current diagnosis for this admission?: Yes Plan: continue home medication. (10) Cocaine abuse Is this a current diagnosis for this admission?: Yes Plan: Supportive care. (11) DVT prophylaxis Is this a current diagnosis for this admission?: Yes Plan: SCD
[2017-07-19] MEDS: SULFAMETHOXAZOLE/TRIMETHOPRIM 400 MG in DEXTROSE 5%-WATER 500 ML IV SCH (16:23)
[2017-07-19] MEDS: INSULIN GLARGINE,HUM.REC.ANLOG 1,000 UNIT/10 ML UNIT SUBCUT SCH (17:36)
[2017-07-19] MEDS: ARIPIPRAZOLE 5 MG TABLET PO SCH (17:43)
[2017-07-19] MEDS: SIMVASTATIN 10 MG TABLET PO SCH (22:13)
[2017-07-20] MEDS: VANCOMYCIN HCL 1,250 MG in DEXTROSE 5%-WATER 250 ML IV SCH ×3 (00:19→21:21)
[2017-07-20] MEDS: HYDRALAZINE HCL INJ/PF 20 MG/1 ML SDV IV PRN ×4 (00:48→17:24)
[2017-07-20] MEDS: TRAMADOL HCL 50 MG TABLET PO PRN ×2 (01:05→21:23)
[2017-07-20] MEDS: SULFAMETHOXAZOLE/TRIMETHOPRIM 400 MG in DEXTROSE 5%-WATER 500 ML IV SCH ×3 (03:43→17:25)
[2017-07-20] MEDS: HYDRALAZINE HCL 50 MG TABLET PO SCH ×3 (06:02→21:23)
[2017-07-20] MEDS: INSULIN LISPRO 100 UNIT/ML 3 ML VIAL SUBCUT PRN ×3 (06:12→21:21)
[2017-07-20] MEDS: INSULIN LISPRO 100 UNIT/ML 3 ML VIAL SUBCUT SCH ×3 (08:37→17:26)
[2017-07-20] MEDS: FLUTICASONE NASAL SPRAY 50 MCG/SPRY 120 SPRAY/16 GM NASL SCH (09:13)
[2017-07-20] MEDS: SODIUM BICARBONATE 650 MG TABLET PO SCH (09:13)
[2017-07-20] MEDS: AMITRIPTYLINE HCL 25 MG TABLET PO SCH (09:13)
[2017-07-20] MEDS: ALPRAZOLAM 0.5 MG TABLET PO SCH ×2 (09:13→21:22)
[2017-07-20] MEDS: GABAPENTIN 400 MG CAPSULE PO SCH ×2 (09:14→21:23)
[2017-07-20] MEDS: ATENOLOL 50 MG TABLET PO SCH (09:14)
[2017-07-20] MEDS: CLONIDINE HCL 0.1 MG TABLET PO SCH ×2 (09:14→21:22)
[2017-07-20] MEDS: FLUOXETINE HCL 20 MG CAPSULE PO SCH (09:14)
[2017-07-20] MEDS: INSULIN GLARGINE,HUM.REC.ANLOG 1,000 UNIT/10 ML UNIT SUBCUT SCH ×2 (09:18→17:28)
[2017-07-20 09:57] LABS: ANION GAP 15 (5-19); BLOOD UREA NITROGEN 27 mg/dL (7-20); CALCIUM 9.6 mg/dL (8.4-10.2); CARBON DIOXIDE 22 mmol/L (22-30); CHLORIDE 102 mmol/L (98-107); CREATININE RESULT 1.36 mg/dL (0.52-1.25); GLUCOSE 216 mg/dL (75-110); POTASSIUM 4.8 mmol/L (3.6-5.0); SODIUM 138.6 mmol/L (137-145)
[2017-07-20] MEDS ORDERED: ONDANSETRON 4 MG TAB.RAPDIS PO PRN (11:30)
[2017-07-20] MEDS: ARIPIPRAZOLE 5 MG TABLET PO SCH (17:28)
--- NOTE | 2017-07-20 17:45 | PDOC PROGRESS REPORT ---
Subjective Progress Note for:: 07/20/17 Subjective:: Patient states that today he is feeling better. Patient denied having chills last night. Physical Exam Vital Signs: Temp Pulse Resp BP Pulse Ox 97.4 F 80 18 139/88 H 99 07/20/17 15:29 07/20/17 15:29 07/20/17 15:29 07/20/17 15:29 07/20/17 16:14 Intake & Output 07/19/17 07/20/17 07/21/17 06:59 06:59 06:59 Intake Total 4087 3817 360 Output Total 7333 792 1234 Balance 2862 3192 -1140 General appearance: PRESENT: no acute distress, well-developed, well-nourished Head exam: PRESENT: atraumatic, normocephalic Eye exam: PRESENT: conjunctiva pink, EOMI. ABSENT: scleral icterus Ear exam: PRESENT: normal external ear exam Mouth exam: PRESENT: moist, tongue midline Neck exam: ABSENT: carotid bruit, JVD, lymphadenopathy, thyromegaly Respiratory exam: PRESENT: clear to auscultation vanessa. ABSENT: rales, rhonchi, wheezes Cardiovascular exam: PRESENT: RRR. ABSENT: diastolic murmur, rubs, systolic murmur Pulses: PRESENT: normal dorsalis pedis pul Vascular exam: PRESENT: normal capillary refill GI/Abdominal exam: PRESENT: normal bowel sounds, soft. ABSENT: distended, guarding, mass, organolmegaly, rebound, tenderness Rectal exam: PRESENT: deferred Extremities exam: PRESENT: full ROM. ABSENT: calf tenderness, clubbing, pedal edema Neurological exam: PRESENT: alert, awake, oriented to person, oriented to place , oriented to time, oriented to situation, CN II-XII grossly intact. ABSENT: motor sensory deficit Psychiatric exam: PRESENT: appropriate affect, normal mood. ABSENT: homicidal ideation, suicidal ideation Skin exam: PRESENT: dry, intact, warm. ABSENT: cyanosis, rash Results Laboratory Results: 07/19/17 05:30 07/20/17 08:33 07/20/17 08:33 Sodium 138.6 Potassium 4.8 Chloride 102 Carbon Dioxide 22 Anion Gap 15 BUN 27 H Creatinine 1.36 H Est GFR ( Amer) > 60 Est GFR (Non-Af Amer) 56 L Glucose 216 H Calcium 9.6 07/17/17 19:00 Blood Blood Culture - Final Enterococcus Faecalis(Group D) Stenotrophomonas Maltophilia 07/17/17 16:10 Catheter Tip - Picc Line Catheter Tip Culture - Final Enterococcus Faecalis(Group D) Impressions: Renal Ultrasound 07/16/17 00:00 IMPRESSION: No hydronephrosis. Chest X-Ray 07/16/17 11:43 IMPRESSION: NO ACUTE RADIOGRAPHIC FINDING IN THE CHEST. Assessment & Plan - Diagnosis (1) Sepsis Qualifiers: Sepsis type: sepsis due to unspecified organism Qualified Code(s): A41.9 - Sepsis, unspecified organism Is this a current diagnosis for this admission?: Yes Plan: Secondary to Enterococcus and Stenotrophomonas from PICC: Vancomycin and bactrim. Will monitor renal function. Pt has a Penicillin allergy. 2 D echo pending. Will order repeat Blood Cultures. (2) Acute respiratory failure with hypoxia Is this a current diagnosis for this admission?: Yes Plan: Resolved. (3) Acute exacerbation of COPD with asthma Is this a current diagnosis for this admission?: Yes Plan: Resolved. Will continue breathing treatments. 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 (5) Acute kidney injury superimposed on chronic kidney disease Is this a current diagnosis for this admission?: Yes Plan: Renal function improving. Will continue to monitor. (6) Diabetic infection of left foot Is this a current diagnosis for this admission?: Yes Plan: Pt has completed treatment. Pt will need to follow up with outpatient physician. (7) Tobacco abuse Is this a current diagnosis for this admission?: Yes Plan: Encourage discontinuing smoking. (8) Hyperkalemia Is this a current diagnosis for this admission?: Yes Plan: Resolved. May have to place on Low Potassium diet. (9) Bipolar disorder Qualifiers: Active/Remission status: remission status unspecified Qualified Code(s): F31.9 - Bipolar disorder, unspecified Is this a current diagnosis for this admission?: Yes Plan: continue home medication. (10) Cocaine abuse Is this a current diagnosis for this admission?: Yes Plan: Supportive care. (11) DVT prophylaxis Is this a current diagnosis for this admission?: Yes Plan: SCD - Time Time Spent with patient: 15-24 minutes Anticipated discharge: Home
[2017-07-20] MEDS: SIMVASTATIN 10 MG TABLET PO SCH (21:22)
[2017-07-21] MEDS: SULFAMETHOXAZOLE/TRIMETHOPRIM 400 MG in DEXTROSE 5%-WATER 500 ML IV SCH ×3 (00:52→09:11)
[2017-07-21] MEDS: HYDRALAZINE HCL INJ/PF 20 MG/1 ML SDV IV PRN ×5 (00:55→22:48)
[2017-07-21 05:45] LABS: ABSOLUTE BASOPHILS # (AUTO) 0.1 10^3/uL (0.0-0.2); ABSOLUTE EOSINOPHILS # (AUTO) 0.4 10^3/uL (0.0-0.6); ABSOLUTE LYMPHOCYTES (AUTO) 1.7 10^3/uL (0.5-4.7); ABSOLUTE MONOCYTES (AUTO) 0.7 10^3/uL (0.1-1.4); ABSOLUTE NEUT (AUTO) 3.8 10^3/uL (1.7-8.2); EOSINOPHILS % (AUTO) 5.3 % (0-6); HEMATOCRIT 27.6 % (37.9-51.0); HEMOGLOBIN 9.1 g/dL (13.5-17.0); HGB HCT DIFFERENCE -0.3; LYMPHOCYTES % (AUTO) 25.4 % (13-45); MEAN CORPUSCULAR HEMOGLOBIN 27.4 pg (27.0-33.4); MEAN CORPUSCULAR HGB CONC 32.9 g/dL (32.0-36.0); MEAN CORPUSCULAR VOLUME 83 fl (80-97); MONOCYTES % (AUTO) 10.4 % (3-13); RED BLOOD COUNT 3.32 10^6/uL (4.35-5.55); RED CELL DISTRIBUTION WIDTH 14.5 % (11.5-14.0); SEGMENTED NEUTROPHILS % (AUTO) 57.9 % (42-78); WHITE BLOOD COUNT 6.6 10^3/uL (4.0-10.5)
[2017-07-21] MEDS: HYDRALAZINE HCL 50 MG TABLET PO SCH ×3 (05:53→22:29)
[2017-07-21 05:54] LABS: ALANINE AMINOTRANSFERASE 22 U/L (21-72); ALBUMIN 3.3 g/dL (3.5-5.0); ALKALINE PHOSPHATASE 101 U/L (38-126); ANION GAP 11 (5-19); ASPARTATE AMINO TRANSFERASE 12 U/L (17-59); BILIRUBIN,DIRECT 0.2 mg/dL (0.0-0.4); BILIRUBIN,TOTAL 0.2 mg/dL (0.2-1.3); BLOOD UREA NITROGEN 23 mg/dL (7-20); CALCIUM 9.4 mg/dL (8.4-10.2); CARBON DIOXIDE 23 mmol/L (22-30); CHLORIDE 104 mmol/L (98-107); CREATININE RESULT 1.45 mg/dL (0.52-1.25); GLUCOSE 262 mg/dL (75-110); POTASSIUM 4.8 mmol/L (3.6-5.0); SODIUM 137.8 mmol/L (137-145); TOTAL PROTEIN 6.7 g/dL (6.3-8.2)
[2017-07-21] MEDS: INSULIN LISPRO 100 UNIT/ML 3 ML VIAL SUBCUT SCH ×3 (08:58→18:18)
[2017-07-21] MEDS: INSULIN GLARGINE,HUM.REC.ANLOG 1,000 UNIT/10 ML UNIT SUBCUT SCH ×2 (09:01→18:17)
[2017-07-21] MEDS: INSULIN LISPRO 100 UNIT/ML 3 ML VIAL SUBCUT PRN ×3 (09:01→18:19)
[2017-07-21] MEDS: ATENOLOL 50 MG TABLET PO SCH (09:07)
[2017-07-21] MEDS: FLUTICASONE NASAL SPRAY 50 MCG/SPRY 120 SPRAY/16 GM NASL SCH (09:07)
[2017-07-21] MEDS: FLUOXETINE HCL 20 MG CAPSULE PO SCH (09:08)
[2017-07-21] MEDS: ALPRAZOLAM 0.5 MG TABLET PO SCH ×2 (09:08→22:29)
[2017-07-21] MEDS: AMITRIPTYLINE HCL 25 MG TABLET PO SCH (09:09)
[2017-07-21] MEDS: VANCOMYCIN HCL 1,250 MG in DEXTROSE 5%-WATER 250 ML IV SCH (09:09)
[2017-07-21] MEDS: CLONIDINE HCL 0.1 MG TABLET PO SCH ×2 (09:09→22:29)
[2017-07-21] MEDS: GABAPENTIN 400 MG CAPSULE PO SCH ×2 (09:09→22:29)
[2017-07-21] MEDS: SODIUM BICARBONATE 650 MG TABLET PO SCH (09:09)
[2017-07-21] MEDS: TRAMADOL HCL 50 MG TABLET PO PRN ×2 (09:34→18:34)
[2017-07-21] MEDS ORDERED: VANCOMYCIN HCL 1,250 MG in DEXTROSE 5%-WATER 250 ML IV SCH (13:00)
[2017-07-21] MEDS: DAPTOMYCIN IV SCH (13:49)
[2017-07-21] MEDS: NORMAL SALINE IV SCH (13:49)
[2017-07-21] MEDS: NORMAL SALINE 1000 ML 1,000 ML IV PRN (16:40)
[2017-07-21] MEDS: LEVOFLOXACIN 750 MG/D5W RTU 750 MG/150 ML RTUPB IV SCH (18:15)
[2017-07-21] MEDS: ARIPIPRAZOLE 5 MG TABLET PO SCH (18:16)
--- NOTE | 2017-07-21 18:22 | PDOC PROGRESS REPORT ---
Subjective Progress Note for:: 07/21/17 Subjective:: The patient is sitting up in a chair today. He states he just does not feel good but has a hard time elaborating. He denies fever chills. No chest pain, shortness of breath or heart palpitations. He is tolerating his diet and has had no nausea vomiting or diarrhea. No abdominal pain. No dysuria, frequency or hematuria. He does say that he is worried about his foot where he had his recent surgery. He really is not having much pain at the site but thinks that is what is making him feel so bad. Physical Exam Vital Signs: Temp Pulse Resp BP Pulse Ox 97.6 F 78 13 113/73 97 07/21/17 15:56 07/21/17 15:56 07/21/17 15:56 07/21/17 15:56 07/21/17 15:56 Intake & Output 07/20/17 07/21/17 07/22/17 06:59 06:59 06:59 Intake Total 3817 5322 960 Output Total 625 2550 900 Balance 3192 2772 60 Weight 107 kg General appearance: PRESENT: no acute distress, cooperative, well-developed, well-nourished Head exam: PRESENT: atraumatic, normocephalic Mouth exam: PRESENT: moist, tongue midline Respiratory exam: PRESENT: rhonchi, wheezes. ABSENT: accessory muscle use, chest wall tenderness Cardiovascular exam: PRESENT: RRR. ABSENT: diastolic murmur, rubs, systolic murmur GI/Abdominal exam: PRESENT: normal bowel sounds, soft. ABSENT: distended, guarding, mass, organolmegaly, rebound, tenderness Extremities exam: PRESENT: pedal edema, other - He has a bandage in place to his left foot that was not removed because of the time of this dictation. I will get the nursing staff to alert me when they perform dressing changes. Neurological exam: PRESENT: alert, awake, oriented to person, oriented to place , oriented to time, oriented to situation, CN II-XII grossly intact. ABSENT: motor sensory deficit Psychiatric exam: PRESENT: flat affect, unusual affect. ABSENT: agitated, anxious Skin exam: PRESENT: dry, warm Results Laboratory Results: 07/21/17 04:29 07/21/17 04:29 07/21/17 07/21/17 04:29 04:29 WBC 6.6 RBC 3.32 L Hgb 9.1 L Hct 27.6 L MCV 83 MCH 27.4 MCHC 32.9 RDW 14.5 H Plt Count 332 Seg Neutrophils % 57.9 Lymphocytes % 25.4 Monocytes % 10.4 Eosinophils % 5.3 Basophils % 1.0 Absolute Neutrophils 3.8 Absolute Lymphocytes 1.7 Absolute Monocytes 0.7 Absolute Eosinophils 0.4 Absolute Basophils 0.1 Sodium 137.8 Potassium 4.8 Chloride 104 Carbon Dioxide 23 Anion Gap 11 BUN 23 H Creatinine 1.45 H Est GFR ( Amer) > 60 Est GFR (Non-Af Amer) 52 L Glucose 262 H Calcium 9.4 Total Bilirubin 0.2 AST 12 L ALT 22 Alkaline Phosphatase 101 Total Protein 6.7 Albumin 3.3 L 07/17/17 19:00 Blood Blood Culture - Final Enterococcus Faecalis(Group D) Stenotrophomonas Maltophilia Impressions: Renal Ultrasound 07/16/17 00:00 IMPRESSION: No hydronephrosis. Chest X-Ray 07/16/17 11:43 IMPRESSION: NO ACUTE RADIOGRAPHIC FINDING IN THE CHEST. Assessment & Plan - Diagnosis (1) Sepsis Qualifiers: Sepsis type: sepsis due to unspecified organism Qualified Code(s): A41.9 - Sepsis, unspecified organism Plan: Present on admission manifested by fever, severe tachycardia, leukocytosis and evidence of infection. The patient has enterococcus and stenotrophomonas growing in 3 out of 4 blood cultures. Repeat blood cultures are negative to date. The patient has been receiving IV vancomycin and Bactrim. 2 of his positive cultures have an AIXA of 2 to vancomycin. I am I am going to change his antibiotic therapy to daptomycin today. I also am going to stop his IV Bactrim due to his acute kidney injury and place him on IV Levaquin which is sensitive to his organism. He will require at least 2 weeks of antibiotic therapy from the date of his negative blood cultures. At this point it is not clear what the source of his infection is. It could be due to his foot infection. I will repeat an MRI of the foot to make sure that he does not have any underlying osteomyelitis or abscess that could be contributing. He also had a 2D cardiac echo performed yesterday. The results are not back as of the time of this dictation. We will follow-up with those results and make further decisions tomorrow. (2) Acute respiratory failure with hypoxia Is this a current diagnosis for this admission?: Yes Plan: Resolved. This was due to COPD exacerbation. (3) Acute kidney injury superimposed on chronic kidney disease Is this a current diagnosis for this admission?: Yes Plan: Unfortunately not very improved. Hopefully stopping the IV Bactrim will help. I am not sure what his baseline creatinine is. We will check a chemistry panel in the morning. 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 (9) Tobacco abuse Is this a current diagnosis for this admission?: Yes Plan: Certainly would be in his best interest to quit smoking at this point. - Time Time Spent with patient: 25-34 minutes - Inpatient Certification Medical Necessity: Need Close Monitoring Due to Risk of Patient Decompensation, Need for IV Antibiotics - The patient has bacteremia of unknown source. He needs parenteral antibiotics and further workup to determine the source. He has insulin he has multiple comorbidities that make him at high risk of decompensation. Timing of disposition will be determined by his clinical course.
--- NOTE | 2017-07-21 22:18 | RADIOLOGY REPORT (SQ) ---
EXAM DESCRIPTION: MRI LT LOWER EXTREMITY COMBO COMPLETED DATE/TIME: 07/21/2017 8:06 pm REASON FOR STUDY: r/o osteo or abscess COMPARISON: 04/26/2017 TECHNIQUE: Multiplanar imaging of the left foot to include T1-weighted, postcontrast T1-weighted, an d T2-weighted images. CONTRAST TYPE AND DOSE: 20 mL ProHance RENAL FUNCTION: Creatinine 1.45, GFR greater than 60 LIMITATIONS: None. FINDINGS: BONE MARROW: There is mild edema involving the distal 5th metatarsal. SOFT TISSUES: There is diffuse soft tissue edema surrounding the lateral aspect of the foot pain 5th toe. There is an open ulcer demonstrated. The edema correlates with the site of the ulcer osteomyel itis is suspected. There is no focal abscess. 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 IMPRESSION: Probable osteomyelitis involving the distal 5th metatarsal. No focal abscess. There is diffuse soft tissue edema. TECHNICAL DOCUMENTATION: JOB ID: [id number] [employer]- All Rights Reserved
[2017-07-21] MEDS: SIMVASTATIN 10 MG TABLET PO SCH (22:29)
[2017-07-22] MEDS: HYDRALAZINE HCL INJ/PF 20 MG/1 ML SDV IV PRN ×3 (05:08→19:05)
[2017-07-22 05:24] LABS: ABSOLUTE BASOPHILS # (AUTO) 0.1 10^3/uL (0.0-0.2); ABSOLUTE EOSINOPHILS # (AUTO) 0.4 10^3/uL (0.0-0.6); ABSOLUTE LYMPHOCYTES (AUTO) 1.4 10^3/uL (0.5-4.7); ABSOLUTE MONOCYTES (AUTO) 0.8 10^3/uL (0.1-1.4); ABSOLUTE NEUT (AUTO) 4.5 10^3/uL (1.7-8.2); BASOPHILS % (AUTO) 1.2 % (0-2); EOSINOPHILS % (AUTO) 5.9 % (0-6); HEMOGLOBIN 8.3 g/dL (13.5-17.0); HGB HCT DIFFERENCE -1.1; LYMPHOCYTES % (AUTO) 20.1 % (13-45); MEAN CORPUSCULAR HEMOGLOBIN 26.7 pg (27.0-33.4); MEAN CORPUSCULAR HGB CONC 31.8 g/dL (32.0-36.0); MEAN CORPUSCULAR VOLUME 84 fl (80-97); MONOCYTES % (AUTO) 10.8 % (3-13); RED CELL DISTRIBUTION WIDTH 14.4 % (11.5-14.0); WHITE BLOOD COUNT 7.2 10^3/uL (4.0-10.5)
[2017-07-22 05:41] LABS: ALANINE AMINOTRANSFERASE 22 U/L (21-72); ALBUMIN 3.2 g/dL (3.5-5.0); ALKALINE PHOSPHATASE 92 U/L (38-126); ANION GAP 12 (5-19); ASPARTATE AMINO TRANSFERASE 15 U/L (17-59); BILIRUBIN,DIRECT 0.2 mg/dL (0.0-0.4); BILIRUBIN,TOTAL 0.2 mg/dL (0.2-1.3); BLOOD UREA NITROGEN 28 mg/dL (7-20); CALCIUM 9.2 mg/dL (8.4-10.2); CARBON DIOXIDE 22 mmol/L (22-30); CHLORIDE 105 mmol/L (98-107); CREATININE RESULT 1.62 mg/dL (0.52-1.25); GLUCOSE 150 mg/dL (75-110); MAGNESIUM 1.6 mg/dL (1.6-2.3); PHOSPHORUS 4.6 mg/dL (2.5-4.5); POTASSIUM 4.8 mmol/L (3.6-5.0); SODIUM 138.9 mmol/L (137-145); TOTAL PROTEIN 6.5 g/dL (6.3-8.2)
[2017-07-22] MEDS: HYDRALAZINE HCL 50 MG TABLET PO SCH ×3 (05:48→22:38)
[2017-07-22] MEDS: INSULIN LISPRO 100 UNIT/ML 3 ML VIAL SUBCUT SCH ×3 (09:27→19:03)
[2017-07-22] MEDS: INSULIN LISPRO 100 UNIT/ML 3 ML VIAL SUBCUT PRN ×2 (09:28→22:37)
[2017-07-22] MEDS: FLUOXETINE HCL 20 MG CAPSULE PO SCH (11:35)
[2017-07-22] MEDS: CLONIDINE HCL 0.1 MG TABLET PO SCH ×2 (11:35→22:38)
[2017-07-22] MEDS: AMITRIPTYLINE HCL 25 MG TABLET PO SCH (11:36)
[2017-07-22] MEDS: SODIUM BICARBONATE 650 MG TABLET PO SCH (11:36)
[2017-07-22] MEDS: ALPRAZOLAM 0.5 MG TABLET PO SCH ×2 (11:36→22:37)
[2017-07-22] MEDS: ATENOLOL 50 MG TABLET PO SCH (11:37)
[2017-07-22] MEDS: GABAPENTIN 400 MG CAPSULE PO SCH ×2 (11:37→22:38)
[2017-07-22] MEDS: FLUTICASONE NASAL SPRAY 50 MCG/SPRY 120 SPRAY/16 GM NASL SCH (11:37)
[2017-07-22] MEDS: INSULIN GLARGINE,HUM.REC.ANLOG 1,000 UNIT/10 ML UNIT SUBCUT SCH ×2 (11:48→19:04)
[2017-07-22] MEDS ORDERED: PHARMACY COMMUNICATION ORDER MC NR (14:00)
[2017-07-22] MEDS: TRAMADOL HCL 50 MG TABLET PO PRN (14:19)
[2017-07-22] MEDS: NORMAL SALINE IV SCH (14:21)
[2017-07-22] MEDS: DAPTOMYCIN IV SCH (14:21)
--- NOTE | 2017-07-22 15:54 | PDOC PROGRESS REPORT ---
Subjective Progress Note for:: 07/22/17 Subjective:: The patient is a 46-year-old an unfortunate 46-year-old -Gabones[place] male. His past medical history is significant for HIV infection. He is on anti- retroviral therapy and follows in [place]. He has uncontrolled diabetes and was recently hospitalized for osteomyelitis of the left foot and had 2 toes amputated. He has a history of MRSA bacteremia earlier this year. During his most recent hospitalization he had a PICC line placed and he was sent home to complete a course of IV antibiotic therapy with ertapenem. His last dose of ertapenem was scheduled to be on July 10, 2017. During that hospitalization he had one blood culture positive for Serratia marcescens. Wound culture from his amputated right big toe grew Enterobacter, Proteus penneri and Prevotella species. The patient presented to the emergency room with nausea vomiting and diarrhea. He was found to be hypoxic and was admitted to the hospital for further evaluation and treatment. It was felt that he was having a COPD exacerbation. He also was found to have an acute kidney injury as well. He was admitted to the hospital and started on IV fluids. Since admission, his nausea vomiting and diarrhea have totally resolved. His kidney function has improved. Unfortunately blood cultures obtained at the time of admission are positive. 1 out of 2 blood cultures drawn on July 16, 2013 were positive for enterococcus, bacillus species and stenotrophomonas. Repeat blood cultures were obtained the next day and his PICC line was removed. The catheter tip tested positive for enterococcus and 1 out of 2 peripheral cultures were positive for enterococcus as well as stenotrophomonas. Repeat cultures obtained on are negative to date. The patient did have a 2D echocardiogram performed 2 days ago but unfortunately this has not been read yet as we have one of our senior applications analyst out on sick leave. Hopefully this will be read by this evening. Yesterday I repeated an MRI of the patient's foot and he possibly has a new area of osteomyelitis involving the distal fifth metatarsal. General surgery has been consulted for further evaluation. His actual wound from his previous surgery looks fairly good. I did speak at length today to infectious disease in [place]. They have stated that if the patient's 2D echocardiogram is of good quality and if the valves are well visualized that no further workup for endocarditis needs to be performed. However if the valves are not well visualized they would recommend transfer to a facility for consideration of [facility]. Given that the patient's infectious disease doctors are all in [place] transferring him to the hospital that they are affiliated with would maybe be the best choice. Dr. Wooten is coming into the hospital tonight I understand to read the echocardiogram so hopefully we will have some results tomorrow. Today the patient is sitting in a chair. I did review his drug history with him. He states that he has never used IV drugs. I also asked him if he injected anything in his PICC line when he had that at home and he has denied that. He states he does use cocaine nasally but has never injected drugs. He states that overall he just does not feel well. He denies fever chills. No chest pain or heart palpitations. He states he has developed a little bit of a wet cough today. He has had no abdominal pain. No nausea or vomiting. He is tolerating his diet. No dysuria, frequency or hematuria. I also asked him if there was anyone who could bring his HIV medication to the hospital. Unfortunately his house is locked and his 2 roommates are currently in [place]. We will see what the pharmacy can do to try to get his HIV medication here in the hospital. Physical Exam Vital Signs: Temp Pulse Resp BP Pulse Ox 97.4 F 81 16 122/71 97 07/22/17 12:29 07/22/17 12:29 07/22/17 12:29 07/22/17 12:29 07/22/17 12:29 Intake & Output 07/21/17 07/22/17 07/23/17 06:59 06:59 06:59 Intake Total 5862 5483 Output Total 8820 2700 Balance 2772 1273 Weight 107 kg 107 kg 107 kg General appearance: PRESENT: cooperative, disheveled Head exam: PRESENT: atraumatic, normocephalic Mouth exam: PRESENT: moist, tongue midline Respiratory exam: PRESENT: other - He does have some fine crackles in the lower bases bilaterally.. ABSENT: rales, rhonchi, wheezes Cardiovascular exam: PRESENT: RRR. ABSENT: diastolic murmur, rubs, systolic murmur GI/Abdominal exam: PRESENT: normal bowel sounds, soft. ABSENT: distended, guarding, mass, organolmegaly, rebound, tenderness Rectal exam: PRESENT: deferred Extremities exam: PRESENT: clubbing, +1 edema, other - Left lower extremity had a dressing in place that was not removed because of the time of this dictation. Neurological exam: PRESENT: alert, altered, awake, oriented to person, oriented to place, oriented to time, oriented to situation Psychiatric exam: PRESENT: flat affect, unusual affect. ABSENT: agitated, anxious - Is Results Laboratory Results: 07/22/17 04:30 07/22/17 04:30 07/22/17 07/22/17 04:30 04:30 WBC 7.2 RBC 3.10 L Hgb 8.3 L Hct 26.0 L MCV 84 MCH 26.7 L MCHC 31.8 L RDW 14.4 H Plt Count 337 Seg Neutrophils % 62.0 Lymphocytes % 20.1 Monocytes % 10.8 Eosinophils % 5.9 Basophils % 1.2 Absolute Neutrophils 4.5 Absolute Lymphocytes 1.4 Absolute Monocytes 0.8 Absolute Eosinophils 0.4 Absolute Basophils 0.1 Sodium 138.9 Potassium 4.8 Chloride 105 Carbon Dioxide 22 Anion Gap 12 BUN 28 H Creatinine 1.62 H Est GFR ( Amer) 55 L Est GFR (Non-Af Amer) 46 L Glucose 150 H Calcium 9.2 Phosphorus 4.6 H Magnesium 1.6 Total Bilirubin 0.2 AST 15 L ALT 22 Alkaline Phosphatase 92 Total Protein 6.5 Albumin 3.2 L Impressions: Renal Ultrasound 07/16/17 00:00 IMPRESSION: No hydronephrosis. Chest X-Ray 07/16/17 11:43 IMPRESSION: NO ACUTE RADIOGRAPHIC FINDING IN THE CHEST. Lower Extremity MRI 07/21/17 00:00 IMPRESSION: Probable osteomyelitis involving the distal 5th metatarsal. No focal abscess. There is diffuse soft tissue edema. 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
[2017-07-22] MEDS: LEVOFLOXACIN 750 MG/D5W RTU 750 MG/150 ML RTUPB IV SCH (19:02)
[2017-07-22] MEDS: ARIPIPRAZOLE 5 MG TABLET PO SCH (19:02)
--- NOTE | 2017-07-22 19:35 | PDOC CONSULTATION ---
Consultation Consult Date: 07/22/17 Consult reason:: possible osteomyelitis of left 5th metatarsal History of Present Illness Admission Date/PCP: 07/16/17 18:24 ANDREIA LÓPEZ MD History of Present Illness: MILADYS LONDON III is a 46 year old male with complaint of diarrhea for the last few days. Patient states that he has had approximately 6-7 episodes of diarrhea. States that his last diarrhea episode was yesterday. Patient reports that he completed antibiotics recently for foot infection. Patient also reported that he had been vomiting at home. Patient stated he vomited 4 times he denies any blood or mucus states that it was food content. Patient states that currently he feels somewhat queasy. Patient also reports that he has been coughing a lot and noticed that he was having a hard time breathing. Patient denies any history of fever. Patient does admit to sick contacts. Patient had an MRI of the left foot which showed possible osteomyelitis of the left fifth metatarsal close to the chronic ulcer on the plantar area Past Medical History Cardiac Medical History: Reports: Coronary Artery Disease, Myocardial Infarction , Hyperlipidema, Hypertension, Peripheral Vascular Disease, Pulmonary Embolism Pulmonary Medical History: Reports: Asthma, Chronic Obstructive Pulmonary Disease (COPD), Pneumonia - 1 year ago Neurological Medical History: Reports: Seizures - Patient had a seizure in 2012. Depakote stopped by his physician. Endocrine Medical History: Reports: Diabetes Mellitus Type 1, Diabetes Mellitus Type 2 - Patient is a poorly compliant, poorly controlled diabetic who uses insulin. Renal/ Medical History: Malignancy Medical History: GI Medical History: Reports: Hepatitis Musculoskeltal Medical History: Reports: Arthritis Psychiatric Medical History: Reports: Bipolar Disorder, Depression, Post Traumatic Stress Disorder Hematology: Reports: Anemia Infectious Medical History: Reports: HIV - Patient reports no detectable viral count, Methicillin-Resistant Staph Aureus Past Surgical History Past Surgical History: Reports: Orthopedic Surgery - right knee replacement, rt toe amputation; amputation 2 left toes., Other - Laser eye surgery PICC line placement, wound debridement Social History Lives with: Parents Smoking Status: Current Every Day Smoker Cigarettes Packs Per Day: 1 Number of Years Smokin Frequency of Alcohol Use: None Hx Recreational Drug Use: Yes Drugs: Cocaine, Marijuana Hx Prescription Drug Abuse: No - Advance Directive Resuscitation Status: Full Code Family History Family History: CAD, COPD, DM, Hyperlipidemia, Hypertension Parental Family History Reviewed: Yes Children Family History Reviewed: NA Sibling(s) Family History Reviewed.: NA Medication/Allergy Home Medications: Alprazolam [Xanax] 2 mg PO BID 06/08/17 Amitriptyline HCl [Elavil 25 mg Tablet] 25 mg PO DAILY 06/08/17 Aripiprazole [Abilify] 20 mg PO QPM 06/08/17 Atenolol [Tenormin 100 mg Tablet] 100 mg PO DAILY 06/08/17 Clonidine HCl [Catapres 0.1 mg Tablet] 0.1 mg PO Q12 06/08/17 Cyclobenzaprine HCl [Flexeril 10 mg Tablet] 10 mg PO TIDP PRN 06/08/17 Diclofenac Sodium [Diclofenac Sodium ER] 100 mg PO DAILY 06/08/17 Emtricitab/Rilpiviri/Tenof Ala [Odefsey Tablet] 1 each PO DAILY 06/08/17 Ergocalciferol (Vitamin D2) [Drisdol 50,000 unit (1.25MG) Capsule] 50,000 unit PO BARRON@1000 06/08/17 Fluoxetine HCl [Prozac] 40 mg PO DAILY 06/08/17 Fluticasone Propionate [Flonase Nasal Schulenburg 50 Mcg/Schulenburg 16 gm] 2 sprays NASL DAILY 06/08/17 Gabapentin [Neurontin 400 mg Capsule] 400 mg PO BID 06/08/17 Hydralazine HCl [Apresoline 50 mg Tablet] 50 mg PO Q8 06/08/17 Insulin Glargine,Hum.rec.anlog [Lantus Insulin 100 Unit/1 ml 10 ml] 45 unit SUBCUT QHS 06/08/17 Levocetirizine Dihydrochloride [Xyzal] 5 mg PO DAILYP PRN 06/08/17 Prazosin HCl [Minipress] 1 mg PO QHS 06/08/17 Simvastatin [Zocor 20 mg Tablet] 20 mg PO QHS 06/08/17 Sodium Polystyrene Sulfon/Sorb [Sps 15 gm/60 ml Suspension] 30 gm PO MO@1000 Zolpidem Tartrate [Ambien] 15 mg PO HSP PRN 06/08/17 Hydromorphone HCl [Dilaudid 2 mg Tablet] 4 mg PO Q2HP PRN #10 tablet 06/15/17 Sodium Bicarbonate [Sodium Bicarbonate 650 mg Tablet] 650 mg PO DAILY #30 tablet 06/15/17 Tramadol HCl 50 mg PO QID PRN #20 tablet 07/05/17 Allergies/Adverse Reactions: Penicillins Allergy (Verified 07/05/17 15:16) rash Review of Systems Constitutional: PRESENT: weakness Eyes: PRESENT: as per HPI Ears: PRESENT: as per HPI Nose, Mouth, and Throat: PRESENT: as per HPI Cardiovascular: PRESENT: as per HPI, other - No chest pains Respiratory: PRESENT: as per HPI, other - no cough or SOB Gastrointestinal: PRESENT: other - no N/V Neurological: PRESENT: numbness, weakness Psychiatric: PRESENT: anxiety Endocrine: PRESENT: other - No cold intolerance Hematologic/Lymphatic: PRESENT: other - No easy bruisability Allergic/Immunologic: PRESENT: other - No seasonal rhinorrhea Physical Exam Vital Signs: Temp Pulse Resp BP Pulse Ox 97.6 F 80 16 130/72 H 98 07/22/17 15:00 07/22/17 15:00 07/22/17 15:00 07/22/17 15:00 07/22/17 15:00 Intake & Output 07/21/17 07/22/17 07/23/17 06:59 06:59 06:59 Intake Total 5322 3973 900 Output Total 2550 2700 450 Balance 2772 1273 450 Weight 107 kg 107 kg 107 kg Exam: Physical exam: 46 yo male alert and oriented c/o left foot/lower leg pains. HEENT: Normocephalic,no c/o for hearing and vision. PERRL, Mucosa moist,neck supple Respiratory: Clear to auscultation, no wheezing Cardiovascular: RSR Abdomen: Soft nontender Ext: Left foot and lower leg swollen, 2.5 cm ulcer opposite 5th MT head plantar area,tender. Neuro: Alert and oriented x 3 Results Laboratory Results: 07/22/17 04:30 07/22/17 04:30 07/22/17 07/22/17 04:30 04:30 WBC 7.2 RBC 3.10 L Hgb 8.3 L Hct 26.0 L MCV 84 MCH 26.7 L MCHC 31.8 L RDW 14.4 H Plt Count 337 Seg Neutrophils % 62.0 Lymphocytes % 20.1 Monocytes % 10.8 Eosinophils % 5.9 Basophils % 1.2 Absolute Neutrophils 4.5 Absolute Lymphocytes 1.4 Absolute Monocytes 0.8 Absolute Eosinophils 0.4 Absolute Basophils 0.1 Sodium 138.9 Potassium 4.8 Chloride 105 Carbon Dioxide 22 Anion Gap 12 BUN 28 H Creatinine 1.62 H Est GFR ( Amer) 55 L Est GFR (Non-Af Amer) 46 L Glucose 150 H Calcium 9.2 Phosphorus 4.6 H Magnesium 1.6 Total Bilirubin 0.2 AST 15 L ALT 22 Alkaline Phosphatase 92 Total Protein 6.5 Albumin 3.2 L 07/17/17 17:00 Blood Blood Culture - Final NO GROWTH IN 5 DAYS Impressions: Renal Ultrasound 07/16/17 00:00 IMPRESSION: No hydronephrosis. Chest X-Ray 07/16/17 11:43 IMPRESSION: NO ACUTE RADIOGRAPHIC FINDING IN THE CHEST. Lower Extremity MRI 07/21/17 00:00 IMPRESSION: Probable osteomyelitis involving the distal 5th metatarsal. No focal abscess. There is diffuse soft tissue edema. Assessment & Plan - Diagnosis (1) Sepsis Qualifiers: Sepsis type: sepsis due to unspecified organism Qualified Code(s): A41.9 - Sepsis, unspecified organism Is this a current diagnosis for this admission?: Yes (3) COPD exacerbation Is this a current diagnosis for this admission?: Yes (4) Acute kidney injury superimposed on chronic kidney disease Is this a current diagnosis for this admission?: Yes (5) Acute exacerbation of COPD with asthma Is this a current diagnosis for this admission?: Yes (7) Acute renal failure Qualifiers: Acute renal failure type: unspecified Qualified Code(s): N17.9 - Acute kidney failure, unspecified (8) Acute respiratory failure with hypoxia Is this a current diagnosis for this admission?: Yes (12) Osteomyelitis of left foot Qualifiers: Osteomyelitis type: other acute Qualified Code(s): M86.172 - Other acute osteomyelitis, left ankle and foot Is this a current diagnosis for this admission?: Yes Plan: Continue with IV antibiotics therapy to clarify possibility of endocarditis 3 may eventually need amputation of the left fifth toe and metatarsal bone. The other problem is a chronic ulcer along the left fifth metatarsal head area. This needs to be taken cared off also. This is going to be very difficult judgment call because the foot itself is swollen and evidence of possible osteomyelitis with a chronic ulcer. IV antibiotics unlikely to heal this ulcer is possible osteomyelitis. He will likely need amp of left 5th MT head and excision of ulcer. (15) Sepsis Qualifiers: Sepsis type: sepsis due to unspecified organism Qualified Code(s): A41.9 - Sepsis, unspecified organism (16) Bipolar disorder Qualifiers: Active/Remission status: remission status unspecified Qualified Code(s): F31.9 - Bipolar disorder, unspecified Is this a current diagnosis for this admission?: Yes - Time Time Spent: 30 to 50 Minutes - Plan Summary Plan Summary: !) Continue iv antibiotics for + blood cultures 2) Will eventually nned at least a 5th metatarsal excision.However, with the swelling of left foot and persistent ulcer opposite 4th-5th MT heads may need a trans metatarsal amputation. Will follow with you.
[2017-07-22] MEDS: SIMVASTATIN 10 MG TABLET PO SCH (22:38)
[2017-07-23] MEDS: HYDRALAZINE HCL INJ/PF 20 MG/1 ML SDV IV PRN ×4 (00:55→17:41)
[2017-07-23 05:44] LABS: ABSOLUTE EOSINOPHILS # (AUTO) 0.4 10^3/uL (0.0-0.6); ABSOLUTE LYMPHOCYTES (AUTO) 1.3 10^3/uL (0.5-4.7); ABSOLUTE MONOCYTES (AUTO) 0.7 10^3/uL (0.1-1.4); ABSOLUTE NEUT (AUTO) 4.2 10^3/uL (1.7-8.2); BASOPHILS % (AUTO) 0.2 % (0-2); EOSINOPHILS % (AUTO) 6.2 % (0-6); HEMATOCRIT 26.8 % (37.9-51.0); HGB HCT DIFFERENCE 0.2; LYMPHOCYTES % (AUTO) 19.8 % (13-45); MEAN CORPUSCULAR HEMOGLOBIN 27.8 pg (27.0-33.4); MEAN CORPUSCULAR HGB CONC 33.7 g/dL (32.0-36.0); MEAN CORPUSCULAR VOLUME 83 fl (80-97); MONOCYTES % (AUTO) 10.9 % (3-13); RED BLOOD COUNT 3.25 10^6/uL (4.35-5.55); RED CELL DISTRIBUTION WIDTH 14.5 % (11.5-14.0); SEGMENTED NEUTROPHILS % (AUTO) 62.9 % (42-78); WHITE BLOOD COUNT 6.7 10^3/uL (4.0-10.5)
[2017-07-23 05:55] LABS: ANION GAP 10 (5-19); BLOOD UREA NITROGEN 30 mg/dL (7-20); CALCIUM 9.7 mg/dL (8.4-10.2); CARBON DIOXIDE 23 mmol/L (22-30); CHLORIDE 105 mmol/L (98-107); CREATININE RESULT 1.59 mg/dL (0.52-1.25); GLUCOSE 181 mg/dL (75-110); MAGNESIUM 1.7 mg/dL (1.6-2.3); POTASSIUM 5.2 mmol/L (3.6-5.0); SODIUM 137.6 mmol/L (137-145)
[2017-07-23] MEDS: HYDRALAZINE HCL 50 MG TABLET PO SCH ×3 (08:04→22:28)
[2017-07-23] MEDS: INSULIN LISPRO 100 UNIT/ML 3 ML VIAL SUBCUT PRN ×2 (08:08→11:38)
[2017-07-23] MEDS: INSULIN LISPRO 100 UNIT/ML 3 ML VIAL SUBCUT SCH ×3 (08:08→17:58)
[2017-07-23] MEDS: AMITRIPTYLINE HCL 25 MG TABLET PO SCH (09:56)
[2017-07-23] MEDS: ALPRAZOLAM 0.5 MG TABLET PO SCH (09:56)
[2017-07-23] MEDS: INSULIN GLARGINE,HUM.REC.ANLOG 1,000 UNIT/10 ML UNIT SUBCUT SCH ×2 (09:57→17:57)
[2017-07-23] MEDS: SODIUM BICARBONATE 650 MG TABLET PO SCH (09:57)
[2017-07-23] MEDS: CLONIDINE HCL 0.1 MG TABLET PO SCH ×2 (09:57→22:29)
[2017-07-23] MEDS: GABAPENTIN 400 MG CAPSULE PO SCH ×2 (09:57→22:29)
[2017-07-23] MEDS: ATENOLOL 50 MG TABLET PO SCH (09:57)
[2017-07-23] MEDS: FLUOXETINE HCL 20 MG CAPSULE PO SCH (09:57)
[2017-07-23] MEDS: FLUTICASONE NASAL SPRAY 50 MCG/SPRY 120 SPRAY/16 GM NASL SCH (09:57)
[2017-07-23] MEDS ORDERED: TRAMADOL HCL 50 MG TABLET PO PRN (12:00)
[2017-07-23] MEDS: NORMAL SALINE IV SCH (13:58)
[2017-07-23] MEDS: DAPTOMYCIN IV SCH (13:58)
--- NOTE | 2017-07-23 15:29 | PDOC PROGRESS REPORT ---
Subjective Progress Note for:: 07/23/17 Subjective:: Complains of pain in his foot. Physical Exam Vital Signs: Temp Pulse Resp BP Pulse Ox 97.6 F 76 19 119/75 100 07/23/17 11:16 07/23/17 11:16 07/23/17 11:16 07/23/17 11:16 07/23/17 11:16 Intake & Output 07/22/17 07/23/17 07/24/17 06:59 06:59 06:59 Intake Total 3973 2600 Output Total 2700 1970 Balance 1273 630 Weight 107 kg 107.5 kg General appearance: PRESENT: no acute distress Eye exam: PRESENT: conjunctiva pink. ABSENT: scleral icterus Mouth exam: PRESENT: moist, tongue midline Neck exam: ABSENT: JVD Respiratory exam: PRESENT: accessory muscle use Cardiovascular exam: PRESENT: RRR. ABSENT: diastolic murmur, rubs, systolic murmur GI/Abdominal exam: PRESENT: normal bowel sounds, soft. ABSENT: distended, guarding, mass, organolmegaly, rebound, tenderness Extremities exam: PRESENT: other - Left foot is with dressing in place.. ABSENT : calf tenderness, clubbing, pedal edema Neurological exam: PRESENT: alert, awake, oriented to person, oriented to place , oriented to time, oriented to situation, CN II-XII grossly intact. ABSENT: motor sensory deficit Psychiatric exam: PRESENT: appropriate affect Skin exam: PRESENT: dry, intact, warm. ABSENT: cyanosis, rash Results Laboratory Results: 07/23/17 04:50 07/23/17 04:50 07/23/17 07/23/17 04:50 04:50 WBC 6.7 RBC 3.25 L Hgb 9.0 L Hct 26.8 L MCV 83 MCH 27.8 MCHC 33.7 RDW 14.5 H Plt Count 382 Seg Neutrophils % 62.9 Lymphocytes % 19.8 Monocytes % 10.9 Eosinophils % 6.2 H Basophils % 0.2 Absolute Neutrophils 4.2 Absolute Lymphocytes 1.3 Absolute Monocytes 0.7 Absolute Eosinophils 0.4 Absolute Basophils 0.0 Sodium 137.6 Potassium 5.2 H Chloride 105 Carbon Dioxide 23 Anion Gap 10 BUN 30 H Creatinine 1.59 H Est GFR ( Amer) 57 L Est GFR (Non-Af Amer) 47 L Glucose 181 H Calcium 9.7 Magnesium 1.7 07/17/17 17:00 Blood Blood Culture - Final NO GROWTH IN 5 DAYS Impressions: Renal Ultrasound 07/16/17 00:00 IMPRESSION: No hydronephrosis. Chest X-Ray 07/16/17 11:43 IMPRESSION: NO ACUTE RADIOGRAPHIC FINDING IN THE CHEST. Lower Extremity MRI 07/21/17 00:00 IMPRESSION: Probable osteomyelitis involving the distal 5th metatarsal. No focal abscess. There is diffuse soft tissue edema. Assessment & Plan - Diagnosis (1) Sepsis Qualifiers: Sepsis type: sepsis due to unspecified organism Qualified Code(s): A41.9 - Sepsis, unspecified organism Is this a current diagnosis for this admission?: Yes Plan: Secondary to osteomyelitis of the left foot. Patient is on daptomycin. Patient is growing out enterococcus and stenotrophomonas in 3 out of 4 cultures. The patient had a PICC line but it has been removed. Once his cultures are negative the PICC line can hopefully be replaced. An echocardiogram is pending at this time. If his valves are well visualized and do not show any obvious vegetation no further workup will be required. If the valves are not well visualized then he will require transfer for a transesophageal echo. (2) Acute respiratory failure with hypoxia Is this a current diagnosis for this admission?: Yes Plan: Secondary to acute COPD exacerbation. This has resolved. (3) Acute kidney injury superimposed on chronic kidney disease Is this a current diagnosis for this admission?: Yes Plan: The patient is euvolemic currently. 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 (5) Hyperkalemia Is this a current diagnosis for this admission?: Yes Plan: Secondary to renal failure. We will continue to monitor. (6) Tobacco abuse Is this a current diagnosis for this admission?: Yes Plan: He is encouraged to abstain (7) Bipolar disorder Qualifiers: Active/Remission status: remission status unspecified Qualified Code(s): F31.9 - Bipolar disorder, unspecified Is this a current diagnosis for this admission?: Yes Plan: Continue with Elavil, Zyprexa, Prozac, Xanax. (8) Cocaine abuse Is this a current diagnosis for this admission?: Yes - Time Time Spent with patient: 25-34 minutes - Inpatient Certification Medical Necessity: Need for IV Antibiotics
--- NOTE | 2017-07-23 15:57 | PDOC PROGRESS REPORT ---
Subjective Progress Note for:: 07/23/17 Subjective:: Overall feel improved. No acute distress. Eating lunch. Physical Exam Vital Signs: Temp Pulse Resp BP Pulse Ox 97.6 F 80 19 119/75 100 07/23/17 11:16 07/23/17 14:00 07/23/17 11:16 07/23/17 11:16 07/23/17 11:16 Intake & Output 07/22/17 07/23/17 07/24/17 06:59 06:59 06:59 Intake Total 3973 2600 Output Total 2700 1970 Balance 1273 630 Weight 107 kg 107.5 kg General appearance: PRESENT: no acute distress, cooperative Extremities exam: PRESENT: other - Left foot with mild diffuse swelling with palpable dorsalis pedis pulse. At the fifth metatarsal head region a deep- seated ulcer with tract extending to the metatarsal head but no purulent drainage. Minimal surrounding erythema. Results Laboratory Results: 07/23/17 04:50 07/23/17 04:50 07/23/17 07/23/17 04:50 04:50 WBC 6.7 RBC 3.25 L Hgb 9.0 L Hct 26.8 L MCV 83 MCH 27.8 MCHC 33.7 RDW 14.5 H Plt Count 382 Seg Neutrophils % 62.9 Lymphocytes % 19.8 Monocytes % 10.9 Eosinophils % 6.2 H Basophils % 0.2 Absolute Neutrophils 4.2 Absolute Lymphocytes 1.3 Absolute Monocytes 0.7 Absolute Eosinophils 0.4 Absolute Basophils 0.0 Sodium 137.6 Potassium 5.2 H Chloride 105 Carbon Dioxide 23 Anion Gap 10 BUN 30 H Creatinine 1.59 H Est GFR ( Amer) 57 L Est GFR (Non-Af Amer) 47 L Glucose 181 H Calcium 9.7 Magnesium 1.7 07/17/17 17:00 Blood Blood Culture - Final NO GROWTH IN 5 DAYS Impressions: Renal Ultrasound 07/16/17 00:00 IMPRESSION: No hydronephrosis. Chest X-Ray 07/16/17 11:43 IMPRESSION: NO ACUTE RADIOGRAPHIC FINDING IN THE CHEST. Lower Extremity MRI 07/21/17 00:00 IMPRESSION: Probable osteomyelitis involving the distal 5th metatarsal. No focal abscess. There is diffuse soft tissue edema. Assessment & Plan - Diagnosis (1) Diabetic infection of left foot Is this a current diagnosis for this admission?: Yes Plan: I have reviewed his radiologic studies and his exam and radiologic study is consistent with osteomyelitis of the head of the fifth metatarsal. Patient would benefit from fifth toe amputation with resection of at least the distal half of the fifth metatarsal. Will do the procedure when hospitalist feel that he is medically stable to undergo surgery.
[2017-07-23] MEDS: OXYCODONE HCL IR 5 MG TABLET PO PRN (17:57)
[2017-07-23] MEDS: LEVOFLOXACIN 750 MG/D5W RTU 750 MG/150 ML RTUPB IV SCH (17:58)
[2017-07-23] MEDS: ARIPIPRAZOLE 5 MG TABLET PO SCH (17:58)
[2017-07-23] MEDS: SIMVASTATIN 10 MG TABLET PO SCH (22:28)
[2017-07-24] MEDS: HYDRALAZINE HCL INJ/PF 20 MG/1 ML SDV IV PRN ×4 (00:03→16:04)
[2017-07-24] MEDS: OXYCODONE HCL IR 5 MG TABLET PO PRN ×4 (00:29→20:58)
[2017-07-24] MEDS: HYDRALAZINE HCL 50 MG TABLET PO SCH ×3 (05:58→22:01)
[2017-07-24 06:05] LABS: ABSOLUTE BASOPHILS # (AUTO) 0.1 10^3/uL (0.0-0.2); ABSOLUTE EOSINOPHILS # (AUTO) 0.4 10^3/uL (0.0-0.6); ABSOLUTE LYMPHOCYTES (AUTO) 1.7 10^3/uL (0.5-4.7); ABSOLUTE MONOCYTES (AUTO) 0.8 10^3/uL (0.1-1.4); ABSOLUTE NEUT (AUTO) 3.4 10^3/uL (1.7-8.2); BASOPHILS % (AUTO) 1.3 % (0-2); HEMATOCRIT 27.1 % (37.9-51.0); HGB HCT DIFFERENCE -0.1; LYMPHOCYTES % (AUTO) 26.2 % (13-45); MEAN CORPUSCULAR HEMOGLOBIN 27.6 pg (27.0-33.4); MEAN CORPUSCULAR HGB CONC 33.2 g/dL (32.0-36.0); MEAN CORPUSCULAR VOLUME 83 fl (80-97); MONOCYTES % (AUTO) 12.8 % (3-13); RED BLOOD COUNT 3.26 10^6/uL (4.35-5.55); RED CELL DISTRIBUTION WIDTH 14.9 % (11.5-14.0); SEGMENTED NEUTROPHILS % (AUTO) 52.7 % (42-78); WHITE BLOOD COUNT 6.4 10^3/uL (4.0-10.5)
[2017-07-24 06:19] LABS: ANION GAP 11 (5-19); BLOOD UREA NITROGEN 39 mg/dL (7-20); CALCIUM 9.9 mg/dL (8.4-10.2); CARBON DIOXIDE 21 mmol/L (22-30); CHLORIDE 105 mmol/L (98-107); CREATININE RESULT 2.01 mg/dL (0.52-1.25); GLUCOSE 161 mg/dL (75-110); POTASSIUM 5.9 mmol/L (3.6-5.0); SODIUM 137.3 mmol/L (137-145)
[2017-07-24] MEDS: INSULIN LISPRO 100 UNIT/ML 3 ML VIAL SUBCUT PRN ×3 (08:00→17:03)
[2017-07-24] MEDS: INSULIN LISPRO 100 UNIT/ML 3 ML VIAL SUBCUT SCH ×3 (08:00→17:03)
--- NOTE | 2017-07-24 09:58 | XCELERA REPORT ---
[address] [address] Transthoracic Echocardiogram Report Name: MILADYS LONDON III Age: 46 yrs Gender: Male : 1970 Patient Status: Inpatient Patient Location: [address] [place] [address] Study Date: 07/20/2017 08:38 AM Height: 69 in Weight: 237 lb BSA: 2.2 m2 Procedure: A two-dimensional transthoracic echocardiogram with color flow and Doppler was performed. Study Quality: Fair. Reason For Study: Enteroccous bacteremia / assess endocarditis History: Enteroccous bacteremia / assess endocarditis. Ordering Physician: KALIN BRAMBILA Performed By: Tiff Jacobsen Interpretation Summary Recommend SANTA if clinical suspicion for endocarditis is high. The left ventricle is normal in size. There is normal left ventricular wall thickness. LV EF is > than 65% Doppler measurements suggest impaired left ventricular relaxation, which is associated with grade I/IV or mild diastolic dysfunction The left ventricular wall motion is normal. The left atrium is moderately dilated. There is no evidence of mitral valve prolapse. There is no vegetation seen on the mitral valve. There is no mitral valve stenosis. There is no mitral regurgitation noted. There is no aortic valvular vegetation. There is no aortic valve stenosis There is no LVOT obstruction. There is a trace to mild amount of aortic regurgitation There is no tricuspid valve vegetation. There is a trace to mild amount of tricuspid regurgitation There is mild pulmonary hypertension by echo RVSP is 35 mm of Hg , with RA mean of 5. There is no pericardial effusion. Recommend SANTA if clinical suspicion for endocarditis is high MMode/2D Measurements & Calculations RVDd: 4.5 cm LVIDd: 5.1 cm FS: 42.0 % Ao root diam: 3.1 cm IVSd: 1.1 cm LVIDs: 3.0 cm EDV(Teich): 125.2 ml LVPWd: 1.1 cm ESV(Teich): 34.2 ml Ao root area: 7.7 cm2 EF(Teich): 72.7 % LA dimension: 4.7 cm Doppler Measurements & Calculations MV E max malorie: MV P1/2t max malorie: Ao V2 max: AI max malorie: 67.1 cm/sec 68.1 cm/sec 143.6 cm/sec 428.9 cm/sec MV A max malorie: MV P1/2t: 54.8 msec Ao max PG: AI max P.5 cm/sec 8.2 mmHg 73.6 mmHg MV E/A: 0.86 MVA(P1/2t): 4.0 cm2 AI dec slope: MV dec slope: 363.9 cm/sec2 145.4 cm/sec2 MV dec time: AI P1/2t: 0.18 sec 864.0 msec LV V1 max PG: PA V2 max: TR max malorie: 6.3 mmHg 105.1 cm/sec 271.5 cm/sec LV V1 max: PA max P.4 mmHg TR max P.9 cm/sec 29.5 mmHg Left Ventricle The left ventricle is normal in size. There is normal left ventricular wall thickness. LV EF is > than 65%. Left ventricular systolic function is normal. Doppler measurements suggest impaired left ventricular relaxation, which is associated with grade I/IV or mild diastolic dysfunction. The left ventricular wall motion is normal. There is no thrombus. Right Ventricle The right ventricle is not well visualized secondary to technical limitations. Atria The right atrium is normal. The left atrium is moderately dilated. Mitral Valve There is no evidence of mitral valve prolapse. There is no vegetation seen on the mitral valve. There is no mitral valve stenosis. There is no mitral regurgitation noted. Aortic Valve There is no aortic valvular vegetation. There is no aortic valve stenosis. There is no LVOT obstruction. There is a trace to mild amount of aortic regurgitation. Tricuspid Valve There is no tricuspid valve vegetation. There is no tricuspid stenosis. There is a trace to mild amount of tricuspid regurgitation. There is mild pulmonary hypertension by echo. RVSP is 35 mm of Hg , with RA mean of 5. Pulmonic Valve There is no vegetation on the pulmonic valve. There is no pulmonic valvular stenosis. There is no pulmonic valvular regurgitation. Great Vessels The aortic root is normal size. Effusions There is no pericardial effusion. : KALIN BRAMBILA > Savannah Dodson
[2017-07-24] MEDS: CLONIDINE HCL 0.1 MG TABLET PO SCH ×2 (10:27→22:01)
[2017-07-24] MEDS: AMITRIPTYLINE HCL 25 MG TABLET PO SCH (10:27)
[2017-07-24] MEDS: SODIUM BICARBONATE 650 MG TABLET PO SCH (10:27)
[2017-07-24] MEDS: FLUOXETINE HCL 20 MG CAPSULE PO SCH (10:27)
[2017-07-24] MEDS: GABAPENTIN 400 MG CAPSULE PO SCH ×2 (10:28→22:01)
[2017-07-24] MEDS: ATENOLOL 50 MG TABLET PO SCH (10:28)
[2017-07-24] MEDS: INSULIN GLARGINE,HUM.REC.ANLOG 1,000 UNIT/10 ML UNIT SUBCUT SCH ×2 (10:28→17:03)
[2017-07-24] MEDS: FLUTICASONE NASAL SPRAY 50 MCG/SPRY 120 SPRAY/16 GM NASL SCH (10:29)
--- NOTE | 2017-07-24 14:13 | PDOC PROGRESS REPORT ---
Subjective Progress Note for:: 07/24/17 Subjective:: Complains of pain in his foot. Physical Exam Vital Signs: Temp Pulse Resp BP Pulse Ox 97.4 F 77 19 109/78 98 07/24/17 11:35 07/24/17 11:35 07/24/17 11:35 07/24/17 11:35 07/24/17 11:35 Intake & Output 07/23/17 07/24/17 07/25/17 06:59 06:59 06:59 Intake Total 2600 2160 Output Total 1970 1300 Balance 630 860 Weight 107.5 kg 108.3 kg General appearance: PRESENT: no acute distress Eye exam: PRESENT: conjunctiva pink. ABSENT: scleral icterus Mouth exam: PRESENT: moist, tongue midline Neck exam: ABSENT: JVD Respiratory exam: PRESENT: clear to auscultation vanessa. ABSENT: rales, rhonchi, wheezes Cardiovascular exam: PRESENT: RRR. ABSENT: diastolic murmur, rubs, systolic murmur GI/Abdominal exam: PRESENT: normal bowel sounds, soft. ABSENT: distended, guarding, mass, organolmegaly, rebound, tenderness Extremities exam: PRESENT: other - Dressing in place on the foot.. ABSENT: calf tenderness, clubbing, pedal edema Neurological exam: PRESENT: alert, awake, oriented to person, oriented to place , oriented to time, oriented to situation, CN II-XII grossly intact. ABSENT: motor sensory deficit Psychiatric exam: PRESENT: appropriate affect Skin exam: PRESENT: other - Dressing in place on the foot. Results Laboratory Results: 07/24/17 04:53 07/24/17 04:53 07/24/17 07/24/17 04:53 04:53 WBC 6.4 RBC 3.26 L Hgb 9.0 L Hct 27.1 L MCV 83 MCH 27.6 MCHC 33.2 RDW 14.9 H Plt Count 400 Seg Neutrophils % 52.7 Lymphocytes % 26.2 Monocytes % 12.8 Eosinophils % 7.0 H Basophils % 1.3 Absolute Neutrophils 3.4 Absolute Lymphocytes 1.7 Absolute Monocytes 0.8 Absolute Eosinophils 0.4 Absolute Basophils 0.1 Sodium 137.3 Potassium 5.9 H Chloride 105 Carbon Dioxide 21 L Anion Gap 11 BUN 39 H Creatinine 2.01 H Est GFR ( Amer) 43 L Est GFR (Non-Af Amer) 36 L Glucose 161 H Calcium 9.9 Impressions: Renal Ultrasound 07/16/17 00:00 IMPRESSION: No hydronephrosis. Chest X-Ray 07/16/17 11:43 IMPRESSION: NO ACUTE RADIOGRAPHIC FINDING IN THE CHEST. Lower Extremity MRI 07/21/17 00:00 IMPRESSION: Probable osteomyelitis involving the distal 5th metatarsal. No focal abscess. There is diffuse soft tissue edema. Assessment & Plan - Diagnosis (1) Sepsis Qualifiers: Sepsis type: sepsis due to unspecified organism Qualified Code(s): A41.9 - Sepsis, unspecified organism Is this a current diagnosis for this admission?: Yes Plan: Secondary to osteomyelitis of the left foot. Patient is on daptomycin. Patient is growing out enterococcus and stenotrophomonas in 3 out of 4 cultures. The patient had a PICC line but it has been removed. Once his cultures are negative the PICC line can hopefully be replaced. An echocardiogram shows no evidence for valvular vegetations. No further workup is required. The patient is stable to go for fifth toe amputation from a medical standpoint whenever surgery is available for this case. (2) Acute respiratory failure with hypoxia Is this a current diagnosis for this admission?: Yes Plan: Secondary to acute COPD exacerbation. This has resolved. (3) Acute kidney injury superimposed on chronic kidney disease Is this a current diagnosis for this admission?: Yes Plan: The patient is euvolemic currently. 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 (5) Hyperkalemia Is this a current diagnosis for this admission?: Yes Plan: Secondary to renal failure. We will continue to monitor. (6) Tobacco abuse Is this a current diagnosis for this admission?: Yes Plan: He is encouraged to abstain (7) Bipolar disorder Qualifiers: Active/Remission status: remission status unspecified Qualified Code(s): F31.9 - Bipolar disorder, unspecified Is this a current diagnosis for this admission?: Yes Plan: Continue with Elavil, Zyprexa, Prozac, Xanax. (8) Cocaine abuse Is this a current diagnosis for this admission?: Yes - Time Time Spent with patient: 25-34 minutes - Inpatient Certification Medical Necessity: Need for IV Antibiotics - Plan Summary Plan Summary: Patient is stable enough to go to surgery from a medical standpoint.
[2017-07-24] MEDS: NORMAL SALINE IV SCH (14:35)
[2017-07-24] MEDS: DAPTOMYCIN IV SCH (14:35)
[2017-07-24] MEDS: LEVOFLOXACIN 750 MG/D5W RTU 750 MG/150 ML RTUPB IV SCH (17:03)
[2017-07-24] MEDS: ARIPIPRAZOLE 5 MG TABLET PO SCH (17:03)
--- NOTE | 2017-07-24 20:18 | PROGRESS NOTE E ---
Progress Note NAME: MILADYS LONDON : 1970 AGE: 46Y DATE: 07/24/2017 ROOM: 409 SUBJECTIVE: The patient continued to have pains in the left foot. He is afebrile today. His white count is normal. Hemoglobin 9.0. Potassium is 5.9, sodium 137, chloride 105, BUN 39, creatinine 2.01. PLAN: To do surgery tomorrow and remove the 5th toe head of the fifth metatarsal and hopefully excise the ulcer on the left foot. The wound may need to be left open and maybe help closure with a wound VAC. DICTATING PHYSICIAN: BUD LAZO M.D. [id number] PHY#: [id number] ID: [id number] JOB#: [id number] ACCT: [id number] cc: >
[2017-07-24] MEDS: SIMVASTATIN 10 MG TABLET PO SCH (22:01)
[2017-07-24] MEDS ORDERED: HYDRALAZINE HCL INJ/PF 20 MG/1 ML SDV IV PRN (23:41)
[2017-07-25] MEDS: OXYCODONE HCL IR 5 MG TABLET PO PRN ×3 (04:45→23:19)
[2017-07-25] MEDS: HYDRALAZINE HCL 50 MG TABLET PO SCH ×3 (05:14→23:14)
[2017-07-25 05:38] LABS: ABSOLUTE BASOPHILS # (AUTO) 0.1 10^3/uL (0.0-0.2); ABSOLUTE EOSINOPHILS # (AUTO) 0.3 10^3/uL (0.0-0.6); ABSOLUTE LYMPHOCYTES (AUTO) 1.4 10^3/uL (0.5-4.7); ABSOLUTE MONOCYTES (AUTO) 0.6 10^3/uL (0.1-1.4); ABSOLUTE NEUT (AUTO) 2.5 10^3/uL (1.7-8.2); BASOPHILS % (AUTO) 1.5 % (0-2); EOSINOPHILS % (AUTO) 7.1 % (0-6); HEMATOCRIT 27.1 % (37.9-51.0); HGB HCT DIFFERENCE -0.1; LYMPHOCYTES % (AUTO) 29.1 % (13-45); MEAN CORPUSCULAR HEMOGLOBIN 27.3 pg (27.0-33.4); MEAN CORPUSCULAR HGB CONC 33.1 g/dL (32.0-36.0); MEAN CORPUSCULAR VOLUME 82 fl (80-97); MONOCYTES % (AUTO) 11.7 % (3-13); RED BLOOD COUNT 3.29 10^6/uL (4.35-5.55); RED CELL DISTRIBUTION WIDTH 15.2 % (11.5-14.0); SEGMENTED NEUTROPHILS % (AUTO) 50.6 % (42-78); WHITE BLOOD COUNT 4.9 10^3/uL (4.0-10.5)
[2017-07-25 05:53] LABS: ANION GAP 11 (5-19); BLOOD UREA NITROGEN 39 mg/dL (7-20); CARBON DIOXIDE 22 mmol/L (22-30); CHLORIDE 104 mmol/L (98-107); CREATININE RESULT 1.77 mg/dL (0.52-1.25); GLUCOSE 206 mg/dL (75-110); POTASSIUM 5.8 mmol/L (3.6-5.0); SODIUM 137.4 mmol/L (137-145)
[2017-07-25] MEDS: INSULIN LISPRO 100 UNIT/ML 3 ML VIAL SUBCUT SCH ×3 (07:47→17:32)
[2017-07-25] MEDS: ATENOLOL 50 MG TABLET PO SCH (09:13)
[2017-07-25] MEDS: FLUOXETINE HCL 20 MG CAPSULE PO SCH (09:17)
[2017-07-25] MEDS: SODIUM BICARBONATE 650 MG TABLET PO SCH (09:17)
[2017-07-25] MEDS: AMITRIPTYLINE HCL 25 MG TABLET PO SCH (09:17)
[2017-07-25] MEDS: CLONIDINE HCL 0.1 MG TABLET PO SCH ×2 (09:17→23:15)
[2017-07-25] MEDS: INSULIN GLARGINE,HUM.REC.ANLOG 1,000 UNIT/10 ML UNIT SUBCUT SCH ×2 (09:17→17:31)
[2017-07-25] MEDS: GABAPENTIN 400 MG CAPSULE PO SCH ×2 (09:17→23:15)
[2017-07-25] MEDS: FLUTICASONE NASAL SPRAY 50 MCG/SPRY 120 SPRAY/16 GM NASL SCH (09:17)
--- NOTE | 2017-07-25 11:15 | PDOC PROGRESS REPORT ---
Subjective Progress Note for:: 07/25/17 Subjective:: Complains of pain in his foot. Physical Exam Vital Signs: Temp Pulse Resp BP Pulse Ox 98.0 F 80 19 119/82 99 07/25/17 08:02 07/25/17 08:02 07/25/17 08:02 07/25/17 08:02 07/25/17 08:02 Intake & Output 07/24/17 07/25/17 07/26/17 06:59 06:59 06:59 Intake Total 2160 1660 Output Total 1300 Balance 860 1660 Weight 108.3 kg 123.8 kg General appearance: PRESENT: no acute distress Eye exam: PRESENT: conjunctiva pink. ABSENT: scleral icterus Mouth exam: PRESENT: moist, tongue midline Neck exam: ABSENT: JVD Respiratory exam: PRESENT: clear to auscultation vanessa. ABSENT: rales, rhonchi, wheezes Cardiovascular exam: PRESENT: RRR. ABSENT: diastolic murmur, rubs, systolic murmur GI/Abdominal exam: PRESENT: normal bowel sounds, soft. ABSENT: distended, guarding, mass, organolmegaly, rebound, tenderness Extremities exam: PRESENT: other - Dressing in place on the left foot.. ABSENT : calf tenderness, clubbing, pedal edema Neurological exam: PRESENT: alert, awake, oriented to person, oriented to place , oriented to time, oriented to situation, CN II-XII grossly intact. ABSENT: motor sensory deficit Psychiatric exam: PRESENT: appropriate affect Skin exam: PRESENT: other - Dressing in place on the left foot. Results Laboratory Results: 07/25/17 04:54 07/25/17 04:54 07/25/17 07/25/17 04:54 04:54 WBC 4.9 RBC 3.29 L Hgb 9.0 L Hct 27.1 L MCV 82 MCH 27.3 MCHC 33.1 RDW 15.2 H Plt Count 321 Seg Neutrophils % 50.6 Lymphocytes % 29.1 Monocytes % 11.7 Eosinophils % 7.1 H Basophils % 1.5 Absolute Neutrophils 2.5 Absolute Lymphocytes 1.4 Absolute Monocytes 0.6 Absolute Eosinophils 0.3 Absolute Basophils 0.1 Sodium 137.4 Potassium 5.8 H Chloride 104 Carbon Dioxide 22 Anion Gap 11 BUN 39 H Creatinine 1.77 H Est GFR ( Amer) 50 L Est GFR (Non-Af Amer) 41 L Glucose 206 H Calcium 10.0 Impressions: Renal Ultrasound 07/16/17 00:00 IMPRESSION: No hydronephrosis. Chest X-Ray 07/16/17 11:43 IMPRESSION: NO ACUTE RADIOGRAPHIC FINDING IN THE CHEST. Lower Extremity MRI 07/21/17 00:00 IMPRESSION: Probable osteomyelitis involving the distal 5th metatarsal. No focal abscess. There is diffuse soft tissue edema. Assessment & Plan - Diagnosis (1) Sepsis Qualifiers: Sepsis type: sepsis due to unspecified organism Qualified Code(s): A41.9 - Sepsis, unspecified organism Is this a current diagnosis for this admission?: Yes Plan: Secondary to osteomyelitis of the left foot. Patient is on daptomycin. Patient is growing out enterococcus and stenotrophomonas in 3 out of 4 cultures. The patient had a PICC line but it has been removed. Once his cultures are negative the PICC line can hopefully be replaced. An echocardiogram shows no evidence for valvular vegetations. No further workup is required. Anesthesia would like for the potassium to be corrected prior to this patient going to the OR. (2) Acute respiratory failure with hypoxia Is this a current diagnosis for this admission?: Yes Plan: Secondary to acute COPD exacerbation. This has resolved. (3) Acute kidney injury superimposed on chronic kidney disease Is this a current diagnosis for this admission?: Yes Plan: The patient is euvolemic currently. 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 (5) Hyperkalemia Is this a current diagnosis for this admission?: Yes Plan: Secondary to renal failure. Will start on lactulose. (6) Tobacco abuse Is this a current diagnosis for this admission?: Yes (7) Bipolar disorder Qualifiers: Active/Remission status: remission status unspecified Qualified Code(s): F31.9 - Bipolar disorder, unspecified Is this a current diagnosis for this admission?: Yes Plan: Continue with Elavil, Zyprexa, Prozac, Xanax. (8) Cocaine abuse Is this a current diagnosis for this admission?: Yes - Time Time Spent with patient: 25-34 minutes - Inpatient Certification Medical Necessity: Need Close Monitoring Due to Risk of Patient Decompensation
[2017-07-25] MEDS: LACTULOSE SYRUP 20 GM/30 ML UDCUP PO SCH ×2 (12:06→23:14)
[2017-07-25] MEDS: NORMAL SALINE IV SCH (13:37)
[2017-07-25] MEDS: DAPTOMYCIN IV SCH (13:37)
[2017-07-25] MEDS: INSULIN LISPRO 100 UNIT/ML 3 ML VIAL SUBCUT PRN ×2 (13:38→17:32)
--- NOTE | 2017-07-25 13:38 | PROGRESS NOTE E ---
Progress Note NAME: MILADYS LONDON : 1970 AGE: 46Y DATE: 07/25/2017 ROOM: 409 The patient is scheduled to have amputation of the left fifth metatarsal bone with osteomyelitis. Unfortunately, his potassium this morning is still elevated at 5.8 with the BUN of 39 and creatinine of 1.77. The anesthesiologist does not feel comfortable giving him anesthesia at this time. I called Dr. Ambrose who will correct the potassium and will repeat the potassium in the morning and if it is within normal range, we will go ahead and do the amputation or excision of the left fifth metatarsal area. He is still complaining of pains along the left foot and the foot itself still looks swollen including the left calf. DICTATING PHYSICIAN: BUD LAZO M.D. [id number] PHY#: [id number] ID: [id number] JOB#: [id number] ACCT: [id number] cc: >
[2017-07-25] MEDS: LEVOFLOXACIN 750 MG/D5W RTU 750 MG/150 ML RTUPB IV SCH (17:30)
[2017-07-25] MEDS: ARIPIPRAZOLE 5 MG TABLET PO SCH (17:31)
[2017-07-25] MEDS: SIMVASTATIN 10 MG TABLET PO SCH (23:15)
[2017-07-26 05:27] LABS: ABSOLUTE BASOPHILS # (AUTO) 0.1 10^3/uL (0.0-0.2); ABSOLUTE EOSINOPHILS # (AUTO) 0.3 10^3/uL (0.0-0.6); ABSOLUTE LYMPHOCYTES (AUTO) 1.2 10^3/uL (0.5-4.7); ABSOLUTE MONOCYTES (AUTO) 0.6 10^3/uL (0.1-1.4); BASOPHILS % (AUTO) 2.2 % (0-2); HEMATOCRIT 26.1 % (37.9-51.0); HEMOGLOBIN 8.6 g/dL (13.5-17.0); HGB HCT DIFFERENCE -0.3; LYMPHOCYTES % (AUTO) 23.3 % (13-45); MEAN CORPUSCULAR HEMOGLOBIN 27.1 pg (27.0-33.4); MEAN CORPUSCULAR HGB CONC 32.8 g/dL (32.0-36.0); MEAN CORPUSCULAR VOLUME 83 fl (80-97); MONOCYTES % (AUTO) 11.3 % (3-13); RED BLOOD COUNT 3.16 10^6/uL (4.35-5.55); RED CELL DISTRIBUTION WIDTH 15.2 % (11.5-14.0); SEGMENTED NEUTROPHILS % (AUTO) 57.2 % (42-78); WHITE BLOOD COUNT 5.3 10^3/uL (4.0-10.5)
[2017-07-26 05:51] LABS: ANION GAP 9 (5-19); BLOOD UREA NITROGEN 31 mg/dL (7-20); CARBON DIOXIDE 23 mmol/L (22-30); CHLORIDE 107 mmol/L (98-107); CREATININE RESULT 1.53 mg/dL (0.52-1.25); GLUCOSE 173 mg/dL (75-110); POTASSIUM 5.6 mmol/L (3.6-5.0); SODIUM 139.1 mmol/L (137-145)
[2017-07-26] MEDS: HYDRALAZINE HCL 50 MG TABLET PO SCH ×3 (06:06→21:12)
[2017-07-26] MEDS: INSULIN LISPRO 100 UNIT/ML 3 ML VIAL SUBCUT SCH ×3 (07:42→16:36)
--- NOTE | 2017-07-26 09:50 | PDOC PROGRESS REPORT ---
Subjective Progress Note for:: 07/26/17 Subjective:: Complains of pain in his foot. Physical Exam Vital Signs: Temp Pulse Resp BP Pulse Ox 98.2 F 81 16 111/63 96 07/26/17 07:43 07/26/17 07:43 07/26/17 07:43 07/26/17 07:43 07/26/17 07:43 Intake & Output 07/25/17 07/26/17 07/27/17 06:59 06:59 06:59 Intake Total 1660 1720 Output Total 300 Balance 1660 1420 Weight 123.8 kg 122.5 kg General appearance: PRESENT: no acute distress Eye exam: PRESENT: conjunctiva pink. ABSENT: scleral icterus Mouth exam: PRESENT: moist, tongue midline Neck exam: ABSENT: JVD Respiratory exam: PRESENT: clear to auscultation vanessa. ABSENT: rales, rhonchi, wheezes Cardiovascular exam: PRESENT: RRR. ABSENT: diastolic murmur, rubs, systolic murmur GI/Abdominal exam: PRESENT: normal bowel sounds, soft. ABSENT: distended, guarding, mass, organolmegaly, rebound, tenderness Extremities exam: PRESENT: other - Left foot is in dressing. Right foot shows multiple previous toe amputations. ABSENT: calf tenderness, clubbing, pedal edema Neurological exam: PRESENT: alert, awake, oriented to person, oriented to place , oriented to time, oriented to situation, CN II-XII grossly intact. ABSENT: motor sensory deficit Psychiatric exam: PRESENT: appropriate affect Skin exam: PRESENT: other - Dressing in place on the left foot Results Laboratory Results: 07/26/17 04:53 07/26/17 04:53 07/26/17 07/26/17 04:53 04:53 WBC 5.3 RBC 3.16 L Hgb 8.6 L Hct 26.1 L MCV 83 MCH 27.1 MCHC 32.8 RDW 15.2 H Plt Count 377 Seg Neutrophils % 57.2 Lymphocytes % 23.3 Monocytes % 11.3 Eosinophils % 6.0 Basophils % 2.2 H Absolute Neutrophils 3.0 Absolute Lymphocytes 1.2 Absolute Monocytes 0.6 Absolute Eosinophils 0.3 Absolute Basophils 0.1 Sodium 139.1 Potassium 5.6 H Chloride 107 Carbon Dioxide 23 Anion Gap 9 BUN 31 H Creatinine 1.53 H Est GFR ( Amer) 59 L Est GFR (Non-Af Amer) 49 L Glucose 173 H Calcium 10.0 07/20/17 20:20 Blood Blood Culture - Final NO GROWTH IN 5 DAYS 07/20/17 19:20 Blood Blood Culture - Final NO GROWTH IN 5 DAYS Impressions: Renal Ultrasound 07/16/17 00:00 IMPRESSION: No hydronephrosis. Chest X-Ray 07/16/17 11:43 IMPRESSION: NO ACUTE RADIOGRAPHIC FINDING IN THE CHEST. Lower Extremity MRI 07/21/17 00:00 IMPRESSION: Probable osteomyelitis involving the distal 5th metatarsal. No focal abscess. There is diffuse soft tissue edema. Assessment & Plan - Diagnosis (1) Sepsis Qualifiers: Sepsis type: sepsis due to unspecified organism Qualified Code(s): A41.9 - Sepsis, unspecified organism Is this a current diagnosis for this admission?: Yes Plan: Secondary to osteomyelitis of the left foot. Patient is on daptomycin. Patient is growing out enterococcus and stenotrophomonas in 3 out of 4 cultures. The patient had a PICC line but it has been removed. Once his cultures are negative the PICC line can hopefully be replaced. An echocardiogram shows no evidence for valvular vegetations. No further workup is required. Anesthesia would like for the potassium to be corrected prior to this patient going to the OR. (2) Acute respiratory failure with hypoxia Is this a current diagnosis for this admission?: Yes Plan: Secondary to acute COPD exacerbation. This has resolved. (3) Acute kidney injury superimposed on chronic kidney disease Is this a current diagnosis for this admission?: Yes Plan: The patient is euvolemic currently. 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 (5) Hyperkalemia Is this a current diagnosis for this admission?: Yes Plan: Secondary to renal failure. Will start on Kayexalate (6) Tobacco abuse Is this a current diagnosis for this admission?: Yes Plan: He is encouraged to abstain (7) Bipolar disorder Qualifiers: Active/Remission status: remission status unspecified Qualified Code(s): F31.9 - Bipolar disorder, unspecified Is this a current diagnosis for this admission?: Yes Plan: Continue with Elavil, Zyprexa, Prozac, Xanax. (8) Cocaine abuse Is this a current diagnosis for this admission?: Yes - Time Time Spent with patient: 25-34 minutes - Inpatient Certification Medical Necessity: Need Close Monitoring Due to Risk of Patient Decompensation
[2017-07-26] MEDS: SODIUM POLYSTYRENE SULFONATE 15 GM/60 ML PO SCH ×2 (11:00→21:10)
[2017-07-26] MEDS: CLONIDINE HCL 0.1 MG TABLET PO SCH ×2 (11:01→21:11)
[2017-07-26] MEDS: FLUOXETINE HCL 20 MG CAPSULE PO SCH (11:01)
[2017-07-26] MEDS: GABAPENTIN 400 MG CAPSULE PO SCH ×2 (11:02→21:11)
[2017-07-26] MEDS: SODIUM BICARBONATE 650 MG TABLET PO SCH (11:02)
[2017-07-26] MEDS: OXYCODONE HCL IR 5 MG TABLET PO PRN ×3 (11:02→23:31)
[2017-07-26] MEDS: AMITRIPTYLINE HCL 25 MG TABLET PO SCH (11:02)
[2017-07-26] MEDS: ATENOLOL 50 MG TABLET PO SCH (11:05)
[2017-07-26] MEDS: ERGOCALCIFEROL (VITAMIN D2) 50000 UNIT (1.25 MG) CAPSULE PO SCH (11:06)
[2017-07-26] MEDS: FLUTICASONE NASAL SPRAY 50 MCG/SPRY 120 SPRAY/16 GM NASL SCH (11:06)
[2017-07-26] MEDS: INSULIN GLARGINE,HUM.REC.ANLOG 1,000 UNIT/10 ML UNIT SUBCUT SCH ×2 (11:07→17:05)
[2017-07-26] MEDS: NORMAL SALINE IV SCH (13:36)
[2017-07-26] MEDS: DAPTOMYCIN IV SCH (13:36)
--- NOTE | 2017-07-26 15:53 | PROGRESS NOTE E ---
Progress Note NAME: MILADYS LONDON : 1970 AGE: 46Y DATE: 07/26/2017 ROOM: 409 SUBJECTIVE: The patient's potassium is still elevated at 5.6 with a BUN at 31, creatinine at 1.53. Anesthesia would like to keep the potassium down to less than 5 prior to giving anesthesia. Because of this, we will hold off surgery today. He still complains of pain on the left foot, and hopefully potassium will be down by tomorrow so he can undergo amputation of the left fourth metatarsal that has osteomyelitis. PLAN: I will endorse the patient to the incoming local surgeon, Dr. Macario tomorrow morning. DICTATING PHYSICIAN: BUD LAZO M.D. [id number] PHY#: [id number] ID: [id number] JOB#: [id number] ACCT: [id number] cc:BUD LAZO M.D. >
[2017-07-26] MEDS: INSULIN LISPRO 100 UNIT/ML 3 ML VIAL SUBCUT PRN ×2 (16:36→21:22)
[2017-07-26] MEDS: LEVOFLOXACIN 750 MG/D5W RTU 750 MG/150 ML RTUPB IV SCH (17:04)
[2017-07-26] MEDS: ARIPIPRAZOLE 5 MG TABLET PO SCH (17:04)
[2017-07-26] MEDS: CYCLOBENZAPRINE HCL 10 MG TABLET PO PRN (19:57)
[2017-07-26] MEDS: SIMVASTATIN 10 MG TABLET PO SCH (21:12)
--- NOTE | 2017-07-27 00:28 | PROGRESS NOTE E ---
Progress Note NAME: MILADYS LONDON : 1970 AGE: 46Y DATE: 07/26/2017 ROOM: 409 SUBJECTIVE: The patient's repeat potassium this morning was 5.6 and Anesthesia does not feel comfortable giving him anesthesia with his potassium in light of renal failure. In the meantime, his leg remains painful and swollen, however his white count is normal and remains afebrile. We will repeat the potassium in the morning and hopefully it is normal range so amputation in the right foot metatarsal can be done. I will endorse the patient to the incoming surgeon tomorrow morning. DICTATING PHYSICIAN: BUD LAZO M.D. [id number] PHY#: [id number] ID: [id number] JOB#: [id number] ACCT: [id number] cc: >
[2017-07-27] MEDS ORDERED: OXYCODONE-ACETAMINOPHEN 5-325 MG TABLET PO ONE (01:26)
[2017-07-27] MEDS ORDERED: OXYCODONE-ACETAMINOPHEN 5-325 MG TABLET ONE (02:23)
[2017-07-27 05:06] LABS: HEMATOCRIT 25.6 % (37.9-51.0); HEMOGLOBIN 8.6 g/dL (13.5-17.0); HGB HCT DIFFERENCE 0.2; MEAN CORPUSCULAR HEMOGLOBIN 27.9 pg (27.0-33.4); MEAN CORPUSCULAR HGB CONC 33.7 g/dL (32.0-36.0); MEAN CORPUSCULAR VOLUME 83 fl (80-97); RED BLOOD COUNT 3.08 10^6/uL (4.35-5.55); RED CELL DISTRIBUTION WIDTH 15.1 % (11.5-14.0); WHITE BLOOD COUNT 4.8 10^3/uL (4.0-10.5)
[2017-07-27] MEDS: HYDRALAZINE HCL 50 MG TABLET PO SCH ×3 (05:15→23:06)
[2017-07-27 05:24] LABS: ANION GAP 10 (5-19); BLOOD UREA NITROGEN 25 mg/dL (7-20); CALCIUM 9.5 mg/dL (8.4-10.2); CARBON DIOXIDE 25 mmol/L (22-30); CHLORIDE 104 mmol/L (98-107); CREATININE RESULT 1.31 mg/dL (0.52-1.25); GLUCOSE 143 mg/dL (75-110); POTASSIUM 5.1 mmol/L (3.6-5.0); SODIUM 139.4 mmol/L (137-145)
[2017-07-27 05:51] LABS: BASOPHILS % (MANUAL) 2 % (0-2); EOSINOPHILS % (MANUAL) 6 % (0-6); LYMPHOCYTES % (MANUAL) 17 % (13-45); TOTAL CELLS COUNTED 100
[2017-07-27 05:53] LABS: ANISOCYTOSIS SLIGHT
[2017-07-27 05:54] LABS: OVALOCYTES 1+; POIKILOCYTOSIS 1+; TARGET CELLS 1+
[2017-07-27] MEDS: INSULIN LISPRO 100 UNIT/ML 3 ML VIAL SUBCUT SCH ×3 (07:22→16:19)
[2017-07-27] MEDS: FLUTICASONE NASAL SPRAY 50 MCG/SPRY 120 SPRAY/16 GM NASL SCH (09:11)
[2017-07-27] MEDS: ATENOLOL 50 MG TABLET PO SCH (09:11)
[2017-07-27] MEDS: INSULIN GLARGINE,HUM.REC.ANLOG 1,000 UNIT/10 ML UNIT SUBCUT SCH ×2 (09:14→18:45)
[2017-07-27] MEDS: AMITRIPTYLINE HCL 25 MG TABLET PO SCH (09:14)
[2017-07-27] MEDS: GABAPENTIN 400 MG CAPSULE PO SCH ×2 (09:14→21:49)
[2017-07-27] MEDS: CLONIDINE HCL 0.1 MG TABLET PO SCH ×2 (09:14→21:50)
[2017-07-27] MEDS: FLUOXETINE HCL 20 MG CAPSULE PO SCH (09:14)
[2017-07-27] MEDS: SODIUM BICARBONATE 650 MG TABLET PO SCH (09:14)
--- NOTE | 2017-07-27 11:25 | PDOC PROGRESS REPORT ---
Subjective Progress Note for:: 07/27/17 Subjective:: Patient with pain to the site. Consented for surgery today explaining complications risks and benefits for I&D with amputation of 5th, possible 4th digit. He understands and agrees. Currently NPO. Denies any fever, chest pain, shortness of breath, headache or dizziness. Physical Exam Vital Signs: Temp Pulse Resp BP Pulse Ox 98.7 F 75 16 126/61 H 97 07/27/17 08:49 07/27/17 08:49 07/27/17 08:49 07/27/17 08:49 07/27/17 08:49 Intake & Output 07/26/17 07/27/17 07/28/17 06:59 06:59 06:59 Intake Total 1720 1999 Output Total 300 Balance 1420 1999 Weight 122.5 kg 123.9 kg General appearance: PRESENT: no acute distress, obese Head exam: PRESENT: atraumatic, normocephalic Eye exam: PRESENT: conjunctiva pink Mouth exam: PRESENT: moist Respiratory exam: PRESENT: clear to auscultation vanessa Cardiovascular exam: PRESENT: RRR GI/Abdominal exam: PRESENT: soft Extremities exam: PRESENT: +2 edema, other - draining ulcer serous from base of 5th metatarsal Neurological exam: PRESENT: alert, altered, awake, CN II-XII grossly intact Results Laboratory Results: 07/27/17 04:26 07/27/17 04:26 07/27/17 07/27/17 04:26 04:26 WBC 4.8 RBC 3.08 L Hgb 8.6 L Hct 25.6 L MCV 83 MCH 27.9 MCHC 33.7 RDW 15.1 H Plt Count 335 Seg Neutrophils % Not Reportable Lymphocytes % Not Reportable Monocytes % Not Reportable Eosinophils % Not Reportable Basophils % Not Reportable Absolute Neutrophils Not Reportable Absolute Lymphocytes Not Reportable Absolute Monocytes Not Reportable Absolute Eosinophils Not Reportable Absolute Basophils Not Reportable Sodium 139.4 Potassium 5.1 H Chloride 104 Carbon Dioxide 25 Anion Gap 10 BUN 25 H Creatinine 1.31 H Est GFR ( Amer) > 60 Est GFR (Non-Af Amer) 58 L Glucose 143 H Calcium 9.5 Impressions: Renal Ultrasound 07/16/17 00:00 IMPRESSION: No hydronephrosis. Chest X-Ray 07/16/17 11:43 IMPRESSION: NO ACUTE RADIOGRAPHIC FINDING IN THE CHEST. Lower Extremity MRI 07/21/17 00:00 IMPRESSION: Probable osteomyelitis involving the distal 5th metatarsal. No focal abscess. There is diffuse soft tissue edema. Status: Imported from PACS Assessment & Plan - Diagnosis (1) Osteomyelitis of toe of left foot Is this a current diagnosis for this admission?: No Plan: OR for I&D, and amputation of the 5th digit NPO IVF Pain control Continue IV antibiotics - Time Time Spent with patient: 15-24 minutes
[2017-07-27] MEDS: OXYCODONE HCL IR 5 MG TABLET PO PRN ×2 (12:00→21:49)
[2017-07-27] MEDS: NORMAL SALINE IV SCH (13:57)
[2017-07-27] MEDS: DAPTOMYCIN IV SCH (13:57)
--- NOTE | 2017-07-27 15:06 | PDOC PROGRESS REPORT ---
Subjective Progress Note for:: 07/27/17 Subjective:: Complains of pain in his foot. Physical Exam Vital Signs: Temp Pulse Resp BP Pulse Ox 97.5 F 77 16 153/92 H 99 07/27/17 12:00 07/27/17 14:00 07/27/17 12:00 07/27/17 12:00 07/27/17 12:00 Intake & Output 07/26/17 07/27/17 07/28/17 06:59 06:59 06:59 Intake Total 1720 2000 0 Output Total 300 200 Balance 1420 2000 -200 Weight 122.5 kg 123.9 kg General appearance: PRESENT: no acute distress Eye exam: PRESENT: conjunctiva pink. ABSENT: scleral icterus Ear exam: PRESENT: normal external ear exam Mouth exam: PRESENT: moist, tongue midline Neck exam: ABSENT: JVD Respiratory exam: PRESENT: clear to auscultation vanessa. ABSENT: rales, rhonchi, wheezes Cardiovascular exam: PRESENT: RRR. ABSENT: diastolic murmur, rubs, systolic murmur GI/Abdominal exam: PRESENT: normal bowel sounds, soft. ABSENT: distended, guarding, mass, organolmegaly, rebound, tenderness Extremities exam: PRESENT: other - Dressing in place on the left foot.. ABSENT : calf tenderness, clubbing, pedal edema Neurological exam: PRESENT: alert, awake, oriented to person, oriented to place , oriented to time, oriented to situation, CN II-XII grossly intact. ABSENT: motor sensory deficit Psychiatric exam: PRESENT: appropriate affect Skin exam: PRESENT: other - Dressing in place on the left foot. Missing all but one toe from the right foot. Results Laboratory Results: 07/27/17 04:26 07/27/17 04:26 07/27/17 07/27/17 04:26 04:26 WBC 4.8 RBC 3.08 L Hgb 8.6 L Hct 25.6 L MCV 83 MCH 27.9 MCHC 33.7 RDW 15.1 H Plt Count 335 Seg Neutrophils % Not Reportable Lymphocytes % Not Reportable Monocytes % Not Reportable Eosinophils % Not Reportable Basophils % Not Reportable Absolute Neutrophils Not Reportable Absolute Lymphocytes Not Reportable Absolute Monocytes Not Reportable Absolute Eosinophils Not Reportable Absolute Basophils Not Reportable Sodium 139.4 Potassium 5.1 H Chloride 104 Carbon Dioxide 25 Anion Gap 10 BUN 25 H Creatinine 1.31 H Est GFR ( Amer) > 60 Est GFR (Non-Af Amer) 58 L Glucose 143 H Calcium 9.5 Impressions: Renal Ultrasound 07/16/17 00:00 IMPRESSION: No hydronephrosis. Chest X-Ray 07/16/17 11:43 IMPRESSION: NO ACUTE RADIOGRAPHIC FINDING IN THE CHEST. Lower Extremity MRI 07/21/17 00:00 IMPRESSION: Probable osteomyelitis involving the distal 5th metatarsal. No focal abscess. There is diffuse soft tissue edema. Assessment & Plan - Diagnosis (1) Sepsis Qualifiers: Sepsis type: sepsis due to unspecified organism Qualified Code(s): A41.9 - Sepsis, unspecified organism Is this a current diagnosis for this admission?: Yes Plan: Secondary to osteomyelitis of the left foot. Patient is on daptomycin. Patient is growing out enterococcus and stenotrophomonas in 3 out of 4 cultures. The patient had a PICC line but it has been removed. Once his cultures are negative the PICC line can hopefully be replaced. An echocardiogram shows no evidence for valvular vegetations. No further workup is required. (2) Acute respiratory failure with hypoxia Is this a current diagnosis for this admission?: Yes Plan: Secondary to acute COPD exacerbation. This has resolved. (3) Acute kidney injury superimposed on chronic kidney disease Is this a current diagnosis for this admission?: Yes Plan: The patient is euvolemic currently. (4) Diabetes Qualifiers: Diabetes mellitus type: type 2 Diabetes mellitus complication detail: with polyneuropathy Diabetes mellitus extermination supervisor insulin use: with extermination supervisor use Is this a current diagnosis for this admission?: Yes Plan: Continue with Lantus and sliding scale insulin. (5) Hyperkalemia Is this a current diagnosis for this admission?: Yes Plan: Secondary to renal failure. Will continue on Kayexalate (6) Tobacco abuse Is this a current diagnosis for this admission?: Yes Plan: He is encouraged to abstain (7) Bipolar disorder Qualifiers: Active/Remission status: remission status unspecified Qualified Code(s): F31.9 - Bipolar disorder, unspecified Is this a current diagnosis for this admission?: Yes Plan: Continue with Elavil, Zyprexa, Prozac, Xanax. (8) Cocaine abuse Is this a current diagnosis for this admission?: Yes (9) Osteomyelitis of toe of left foot Is this a current diagnosis for this admission?: Yes Plan: Patient is to go to the OR today for surgery on the left foot. Continue with daptomycin. - Time Time Spent with patient: 25-34 minutes - Inpatient Certification Medical Necessity: Need for IV Antibiotics
[2017-07-27] MEDS ORDERED: MIDAZOLAM 2 MG/2 ML INJ ONE (16:14)
[2017-07-27] MEDS ORDERED: FENTANYL CITRATE INJ/PF 100 MCG/2 ML AMPUL ONE (16:14)
[2017-07-27] MEDS ORDERED: HYDROMORPHONE HCL INJ/PF 2 MG/ML AMPULE ONE (16:15)
[2017-07-27] MEDS ORDERED: PROPOFOL INJ 200 MG/20 ML VIAL IV ONE (16:15)
[2017-07-27] MEDS ORDERED: BUPIVACAINE HCL 0.25 % INJ/PF (2.5 MG/1 ML) 30 ML VIAL ONE (16:25)
[2017-07-27] MEDS ORDERED: LIDOCAINE 1%/EPINEPHRINE INJ 20 ML VIAL ONE (16:26)
--- NOTE | 2017-07-27 18:16 | Operative Report ---
Operative Report DATE OF SURGERY: 07/27/17 Operative Report: Clinical indications: Mr. Singer is a 46-year-old male presents to the ER with acute COPD exacerbation. During his hospitalization was noted he had a significant left lower extremity plantar aspect infection. Prior significant history diabetes and multiple amputations of this lower extremity. Workup during his hospitalizations notes exposed bone on the plantar surface within the lumen of this ulcer. Consent was obtained from the patient for incision and debridement possible amputation explaining risks benefits for a debridement including but limited to bleeding infection need for operation to which he accepted. He is brought to the operative suite prior to anesthetic induction placed supine on the table. He sterilely prepped and draped in usual manner. Anesthesia was MAC with local anesthesia regionally. Local anesthesia used was 1% lidocaine with epinephrine with quarter percent Marcaine plain mixed 50-50 of which 9 mils were used. A regional block as well as local tissue block was performed. An ellipse pattern was planned around the ulcer as well as the digit to allow amputation as needed with debridement. Prior to incision local was instilled. 10 blade was used to sharply debride the tissue around the ulcer notably this was coming from the base of the distal metatarsal of the fifth digit. Amputation of the distal metatarsal was accomplished at this point along with partial amputation of the proximal head. Hemostasis is accomplished using electrocautery as well as suture ligation. Reapproximation of the muscle flap over the transmetatarsal amputation was accomplished using 0 Vicryl stitch in a [id number] manner. Site was then irrigated until clear and dressed with quarter inch iodoform gauze 4 x 4's ABD and Kerlix wrap. Patient was awoken from anesthesia and transported back to recovery in stable condition. PREOPERATIVE DIAGNOSIS: Osteomyelitis of left 5th distal metatarsal, left POSTOPERATIVE DIAGNOSIS: Osteomyelitis of 5th distal metatarsal, left OPERATION: Incision and debridement of left lateral foot with transmetatarsal amputation of the 5th digit SURGEON: ABHIJEET THOMPSON ANESTHESIA: LMAC TISSUE REMOVED OR ALTERED: Left Lower extremity 5th digit transmetatarsal amputation COMPLICATIONS: None ESTIMATED BLOOD LOSS: 50mls
[2017-07-27] MEDS ORDERED: KETOROLAC TROMETHAMINE INJ/PF 30 MG/1 ML SDV ONE (18:25)
[2017-07-27] MEDS ORDERED: PROMETHAZINE HCL INJ 25 MG/1 ML VIAL IV PRN (18:28)
[2017-07-27] MEDS: FENTANYL CITRATE INJ/PF 100 MCG/2 ML AMPUL ONE ×2 (18:30→18:40)
[2017-07-27] MEDS: ARIPIPRAZOLE 5 MG TABLET PO SCH (18:45)
[2017-07-27] MEDS: DIPHENHYDRAMINE HCL 50 MG/ML VIAL IV PRN ×2 (21:01→21:14)
[2017-07-27] MEDS: FENTANYL CITRATE INJ/PF 100 MCG/2 ML AMPUL IV PRN ×6 (21:01→21:14)
[2017-07-27] MEDS: LEVOFLOXACIN 750 MG/D5W RTU 750 MG/150 ML RTUPB IV SCH ×3 (21:03→23:06)
[2017-07-27] MEDS: SIMVASTATIN 10 MG TABLET PO SCH (21:48)
[2017-07-27] MEDS: CYCLOBENZAPRINE HCL 10 MG TABLET PO PRN (23:17)
[2017-07-28 04:46] LABS: ABSOLUTE BASOPHILS # (AUTO) 0.1 10^3/uL (0.0-0.2); ABSOLUTE EOSINOPHILS # (AUTO) 0.3 10^3/uL (0.0-0.6); ABSOLUTE MONOCYTES (AUTO) 0.6 10^3/uL (0.1-1.4); ABSOLUTE NEUT (AUTO) 2.5 10^3/uL (1.7-8.2); EOSINOPHILS % (AUTO) 5.1 % (0-6); HEMATOCRIT 27.1 % (37.9-51.0); HEMOGLOBIN 9.1 g/dL (13.5-17.0); HGB HCT DIFFERENCE 0.2; LYMPHOCYTES % (AUTO) 37.2 % (13-45); MEAN CORPUSCULAR HEMOGLOBIN 27.5 pg (27.0-33.4); MEAN CORPUSCULAR HGB CONC 33.6 g/dL (32.0-36.0); MEAN CORPUSCULAR VOLUME 82 fl (80-97); MONOCYTES % (AUTO) 11.5 % (3-13); RED CELL DISTRIBUTION WIDTH 15.2 % (11.5-14.0); SEGMENTED NEUTROPHILS % (AUTO) 45.2 % (42-78); WHITE BLOOD COUNT 5.4 10^3/uL (4.0-10.5)
[2017-07-28 05:03] LABS: ANION GAP 9 (5-19); BLOOD UREA NITROGEN 26 mg/dL (7-20); CALCIUM 9.4 mg/dL (8.4-10.2); CARBON DIOXIDE 29 mmol/L (22-30); CHLORIDE 101 mmol/L (98-107); CREATININE RESULT 1.96 mg/dL (0.52-1.25); GLUCOSE 114 mg/dL (75-110); POTASSIUM 4.8 mmol/L (3.6-5.0); SODIUM 138.9 mmol/L (137-145)
[2017-07-28] MEDS: HYDRALAZINE HCL 50 MG TABLET PO SCH ×3 (05:41→21:13)
[2017-07-28] MEDS: OXYCODONE HCL IR 5 MG TABLET PO PRN ×3 (06:54→21:12)
[2017-07-28] MEDS: INSULIN LISPRO 100 UNIT/ML 3 ML VIAL SUBCUT SCH ×3 (08:19→17:07)
[2017-07-28] MEDS: INSULIN LISPRO 100 UNIT/ML 3 ML VIAL SUBCUT PRN ×2 (08:20→11:20)
--- NOTE | 2017-07-28 08:37 | PDOC PROGRESS REPORT ---
Subjective Progress Note for:: 07/28/17 Subjective:: No issues overnight Pain at the surgical site Tolerating a diet Change dressing tomorrow Physical Exam Vital Signs: Temp Pulse Resp BP Pulse Ox 97.4 F 94 18 122/69 96 07/28/17 00:20 07/28/17 07:00 07/28/17 00:20 07/28/17 00:20 07/28/17 01:14 Intake & Output 07/27/17 07/28/17 07/29/17 06:59 06:59 06:59 Intake Total 1999 1360 Output Total 550 Balance 1999 810 Weight 123.9 kg 123.9 kg General appearance: PRESENT: no acute distress, obese Head exam: PRESENT: atraumatic, normocephalic Mouth exam: PRESENT: moist, neck supple Respiratory exam: PRESENT: symmetrical, unlabored. ABSENT: accessory muscle use , tachypnea Vascular exam: PRESENT: normal capillary refill GI/Abdominal exam: PRESENT: normal bowel sounds, soft. ABSENT: tenderness Extremities exam: PRESENT: +2 edema Neurological exam: PRESENT: alert, awake, oriented to person, oriented to place , oriented to time, oriented to situation, CN II-XII grossly intact. ABSENT: motor sensory deficit Psychiatric exam: PRESENT: appropriate affect, normal mood. ABSENT: homicidal ideation, suicidal ideation Results Laboratory Results: 07/28/17 04:11 07/28/17 04:11 07/28/17 07/28/17 04:11 04:11 WBC 5.4 RBC 3.30 L Hgb 9.1 L Hct 27.1 L MCV 82 MCH 27.5 MCHC 33.6 RDW 15.2 H Plt Count 365 Seg Neutrophils % 45.2 Lymphocytes % 37.2 Monocytes % 11.5 Eosinophils % 5.1 Basophils % 1.0 Absolute Neutrophils 2.5 Absolute Lymphocytes 2.0 Absolute Monocytes 0.6 Absolute Eosinophils 0.3 Absolute Basophils 0.1 Sodium 138.9 Potassium 4.8 Chloride 101 Carbon Dioxide 29 Anion Gap 9 BUN 26 H Creatinine 1.96 H Est GFR ( Amer) 44 L Est GFR (Non-Af Amer) 37 L Glucose 114 H Calcium 9.4 Impressions: Renal Ultrasound 07/16/17 00:00 IMPRESSION: No hydronephrosis. Chest X-Ray 07/16/17 11:43 IMPRESSION: NO ACUTE RADIOGRAPHIC FINDING IN THE CHEST. Lower Extremity MRI 07/21/17 00:00 IMPRESSION: Probable osteomyelitis involving the distal 5th metatarsal. No focal abscess. There is diffuse soft tissue edema. Status: Imported from PACS Assessment & Plan - Diagnosis (1) Osteomyelitis of toe of left foot Is this a current diagnosis for this admission?: Yes Plan: Advance diet as tolerated IV toradol for pain control Pulmonary toilet DVT/GI prophylaxis Wound care/dressing change tomorrow Wound care consult - Time Time Spent with patient: Less than 15 minutes
[2017-07-28] MEDS: FLUOXETINE HCL 20 MG CAPSULE PO SCH (10:08)
[2017-07-28] MEDS: AMITRIPTYLINE HCL 25 MG TABLET PO SCH (10:08)
[2017-07-28] MEDS: CLONIDINE HCL 0.1 MG TABLET PO SCH ×2 (10:08→21:13)
[2017-07-28] MEDS: ATENOLOL 50 MG TABLET PO SCH (10:08)
[2017-07-28] MEDS: INSULIN GLARGINE,HUM.REC.ANLOG 1,000 UNIT/10 ML UNIT SUBCUT SCH ×2 (10:08→17:08)
[2017-07-28] MEDS: GABAPENTIN 400 MG CAPSULE PO SCH ×2 (10:08→21:13)
[2017-07-28] MEDS: SODIUM BICARBONATE 650 MG TABLET PO SCH (10:08)
[2017-07-28] MEDS: FLUTICASONE NASAL SPRAY 50 MCG/SPRY 120 SPRAY/16 GM NASL SCH (10:09)
[2017-07-28] MEDS: KETOROLAC TROMETHAMINE INJ/PF 30 MG/1 ML SDV IV SCH ×3 (11:15→23:12)
--- NOTE | 2017-07-28 11:53 | PDOC PROGRESS REPORT ---
Subjective Progress Note for:: 07/28/17 Subjective:: Patient had foot pain on the left. Had amputation of the toe yesterday due to osteomyelitis of the involved digit. No temperature spikes, nausea or vomiting , chills nor fever. No diarrhea. Patient had a negative blood culture on the 11 of this month. Physical Exam Vital Signs: Temp Pulse Resp BP Pulse Ox 97.4 F 94 18 122/69 96 07/28/17 00:20 07/28/17 07:00 07/28/17 00:20 07/28/17 00:20 07/28/17 01:14 Intake & Output 07/27/17 07/28/17 07/29/17 06:59 06:59 06:59 Intake Total 1999 1360 Output Total 550 Balance 1999 810 Weight 123.9 kg 123.9 kg General appearance: PRESENT: no acute distress, morbidly obese Head exam: PRESENT: normocephalic Eye exam: PRESENT: EOMI Mouth exam: PRESENT: moist, neck supple Neck exam: ABSENT: JVD Respiratory exam: PRESENT: clear to auscultation vanessa. ABSENT: rhonchi, wheezes Cardiovascular exam: PRESENT: RRR. ABSENT: gallop GI/Abdominal exam: PRESENT: soft. ABSENT: distended, tenderness Extremities exam: PRESENT: +1 edema - Left more than the right Neurological exam: PRESENT: alert, awake, oriented to situation Skin exam: PRESENT: dry, warm. ABSENT: cyanosis Results Laboratory Results: 07/28/17 04:11 07/28/17 04:11 07/28/17 07/28/17 04:11 04:11 WBC 5.4 RBC 3.30 L Hgb 9.1 L Hct 27.1 L MCV 82 MCH 27.5 MCHC 33.6 RDW 15.2 H Plt Count 365 Seg Neutrophils % 45.2 Lymphocytes % 37.2 Monocytes % 11.5 Eosinophils % 5.1 Basophils % 1.0 Absolute Neutrophils 2.5 Absolute Lymphocytes 2.0 Absolute Monocytes 0.6 Absolute Eosinophils 0.3 Absolute Basophils 0.1 Sodium 138.9 Potassium 4.8 Chloride 101 Carbon Dioxide 29 Anion Gap 9 BUN 26 H Creatinine 1.96 H Est GFR ( Amer) 44 L Est GFR (Non-Af Amer) 37 L Glucose 114 H Calcium 9.4 Impressions: Renal Ultrasound 07/16/17 00:00 IMPRESSION: No hydronephrosis. Chest X-Ray 07/16/17 11:43 IMPRESSION: NO ACUTE RADIOGRAPHIC FINDING IN THE CHEST. Lower Extremity MRI 07/21/17 00:00 IMPRESSION: Probable osteomyelitis involving the distal 5th metatarsal. No focal abscess. There is diffuse soft tissue edema. Assessment & Plan - Diagnosis (1) Sepsis Qualifiers: Sepsis type: sepsis due to unspecified organism Qualified Code(s): A41.9 - Sepsis, unspecified organism Is this a current diagnosis for this admission?: Yes (2) Osteomyelitis of toe of left foot Is this a current diagnosis for this admission?: Yes (3) Acute exacerbation of COPD with asthma Is this a current diagnosis for this admission?: Yes (4) COPD exacerbation Is this a current diagnosis for this admission?: Yes (5) CKD (chronic kidney disease) Qualifiers: Chronic kidney disease stage: stage 3 (moderate) Qualified Code(s): N18.3 - Chronic kidney disease, stage 3 (moderate) Is this a current diagnosis for this admission?: Yes (6) Diabetes Qualifiers: Diabetes mellitus type: type 2 Diabetes mellitus complication detail: with polyneuropathy Diabetes mellitus fpc insulin use: with intermodal dispatcher use Is this a current diagnosis for this admission?: Yes (7) Bipolar disorder Qualifiers: Active/Remission status: remission status unspecified Qualified Code(s): F31.9 - Bipolar disorder, unspecified Is this a current diagnosis for this admission?: Yes (8) Cocaine abuse Is this a current diagnosis for this admission?: Yes - Time Time Spent with patient: 25-34 minutes - Plan Summary Plan Summary: Patient already had a negative blood culture on the and he still was just amputated yesterday. Patient will need another 2 weeks of IV antibiotic. In the meantime PICC line has been placed and prior infected site has already been removed. We will increase oxycodone for pain control and give him 1 dose of morphine today intravenously.
--- NOTE | 2017-07-28 12:01 | RADIOLOGY REPORT (SQ) ---
EXAM DESCRIPTION: PICC INSERTION; U/S GUIDE FOR VASCULAR ACCESS; FLUORO/CV PLACEMENT COMPLETED DATE/TIME: 07/28/2017 10:42 am REASON FOR STUDY: Need for detention IV access; IV ACCESS; IV ABX COMPARISON: None. FLUOROSCOPY TIME: 15 seconds. 1 images saved to PACS. TECHNIQUE: Fluoroscopic and ultrasound guided PICC placement. LIMITATIONS: None. PROCEDURE: After written consent and assessment were obtained, the patient was brought into the fluo roscopy room and place supine on the table. Ultrasound was used on the patient's left arm for PICC a ccess. The left arm was prepped and draped in a sterile fashion along with the ultrasound probe. The entry site was anesthetized with 1% lidocaine. A 21 gauge 7 cm needle was advanced through the skin a nd into the basilic vein under live ultrasound guidance. An ultrasound image was saved to PACS confi rming access site. A .018 guide wire was then inserted through the needle and into the venous system . The needle was the removed and an 11 blade scalpel was used to make a 1cm skin incision. A 5 fr pe el-away sheath was advanced over the wire and into the venous system. A measurement was then made usi ng the existing wire and live fluoroscopic guidance. The wire was then removed and the trimmed. The P ICC was advanced through the peel-away sheath and into the venous system. The peel-away sheath was re moved and the catheter was adhered to the patients arm with a stat lock. The catheter was then aspira keturah and flushed and a sterile bandage was placed over the access site. A fluoroscopic spot image was saved to PACS confirming the catheter tip within the superior vena cava. IMPRESSION: SUCCESSFUL PLACEMENT OF A 5 FR DUAL LUMEN 42 CM PICC IN THE LEFT BASILIC VEIN. COMMENT: Patient medication list reviewed: Yes- Quality ID# [id number]:Eligible professional attests to doc umenting in the medical record they obtained, updated, or reviewed the patient's current medications. . Quality ID 145: Final reports for procedures using fluoroscopy that document radiation exposure demetrius leyda, or exposure time and number of fluorographic images (if radiation exposure indices are not avail able) Quality ID #76: The patient was prepped and draped using maximum sterile barrier technique including cap, mask, sterile gown, sterile gloves, a large sterile sheet, hand hygiene, and 2% Chlorhexidine fo r cutaneous antisepsis. When ultrasound is used, sterile ultrasound techniques are followed requiring sterile gel and sterile probes. TECHNICAL DOCUMENTATION: JOB ID: [id number] [employer]- All Rights Reserved
[2017-07-28] MEDS ORDERED: MORPHINE SULFATE 10 MG/ML INJ IV ONE ×2 (13:00→14:00)
[2017-07-28] MEDS: ARIPIPRAZOLE 5 MG TABLET PO SCH (17:08)
[2017-07-28] MEDS: LEVOFLOXACIN 750 MG/D5W RTU 750 MG/150 ML RTUPB IV SCH (21:11)
[2017-07-28] MEDS: SIMVASTATIN 10 MG TABLET PO SCH (21:13)
[2017-07-28] MEDS: NORMAL SALINE 10 ML SDV (SCHEDULED) IV SCH (21:14)
[2017-07-28] MEDS: NORMAL SALINE IV SCH (23:12)
[2017-07-28] MEDS: DAPTOMYCIN IV SCH (23:12)
[2017-07-29] MEDS: OXYCODONE HCL IR 5 MG TABLET PO PRN ×4 (05:15→21:21)
[2017-07-29] MEDS: HYDRALAZINE HCL 50 MG TABLET PO SCH ×3 (05:15→21:22)
[2017-07-29] MEDS: KETOROLAC TROMETHAMINE INJ/PF 30 MG/1 ML SDV IV SCH ×4 (05:15→23:15)
[2017-07-29] MEDS: INSULIN LISPRO 100 UNIT/ML 3 ML VIAL SUBCUT SCH ×3 (08:18→18:09)
[2017-07-29] MEDS: INSULIN LISPRO 100 UNIT/ML 3 ML VIAL SUBCUT PRN ×3 (08:18→23:14)
[2017-07-29] MEDS: FLUTICASONE NASAL SPRAY 50 MCG/SPRY 120 SPRAY/16 GM NASL SCH (09:40)
[2017-07-29] MEDS: INSULIN GLARGINE,HUM.REC.ANLOG 1,000 UNIT/10 ML UNIT SUBCUT SCH ×2 (09:41→18:09)
[2017-07-29] MEDS: GABAPENTIN 400 MG CAPSULE PO SCH ×2 (09:43→21:22)
[2017-07-29] MEDS: SODIUM BICARBONATE 650 MG TABLET PO SCH (09:43)
[2017-07-29] MEDS: FLUOXETINE HCL 20 MG CAPSULE PO SCH (09:43)
[2017-07-29] MEDS: CLONIDINE HCL 0.1 MG TABLET PO SCH ×2 (09:44→21:20)
[2017-07-29] MEDS: AMITRIPTYLINE HCL 25 MG TABLET PO SCH (09:44)
[2017-07-29] MEDS: NORMAL SALINE 10 ML SDV (SCHEDULED) IV SCH ×2 (09:46→21:23)
[2017-07-29] MEDS: ATENOLOL 50 MG TABLET PO SCH (09:55)
--- NOTE | 2017-07-29 10:04 | PDOC PROGRESS REPORT ---
Subjective Progress Note for:: 07/29/17 Subjective:: Patient complains of pain and discomfort on the foot but better. No diarrhea chills nor fever. No shortness of breath or chest pain. Physical Exam Vital Signs: Temp Pulse Resp BP Pulse Ox 97.7 F 85 17 117/64 97 07/29/17 04:27 07/29/17 07:00 07/29/17 04:27 07/29/17 04:27 07/29/17 04:27 Intake & Output 07/28/17 07/29/17 07/30/17 06:59 06:59 06:59 Intake Total 1360 1560 Output Total 550 900 Balance 810 660 Weight 123.9 kg 123.9 kg General appearance: PRESENT: no acute distress, cooperative, morbidly obese Extremities exam: PRESENT: +1 edema - Left leg more than the right, wound dressing clean and dry on the left foot Skin exam: PRESENT: dry, warm. ABSENT: cyanosis Results Laboratory Results: 07/28/17 04:11 07/28/17 04:11 Impressions: Renal Ultrasound 07/16/17 00:00 IMPRESSION: No hydronephrosis. Chest X-Ray 07/16/17 11:43 IMPRESSION: NO ACUTE RADIOGRAPHIC FINDING IN THE CHEST. Lower Extremity MRI 07/21/17 00:00 IMPRESSION: Probable osteomyelitis involving the distal 5th metatarsal. No focal abscess. There is diffuse soft tissue edema. Guidance Fluoroscopy 07/28/17 00:00 IMPRESSION: SUCCESSFUL PLACEMENT OF A 5 FR DUAL LUMEN 42 CM PICC IN THE LEFT BASILIC VEIN. Interventional Vascular Procedure 07/28/17 00:00 IMPRESSION: SUCCESSFUL PLACEMENT OF A 5 FR DUAL LUMEN 42 CM PICC IN THE LEFT BASILIC VEIN. PICC Line Insertion 07/28/17 00:00 IMPRESSION: SUCCESSFUL PLACEMENT OF A 5 FR DUAL LUMEN 42 CM PICC IN THE LEFT BASILIC VEIN. Assessment & Plan - Diagnosis (1) Sepsis Qualifiers: Sepsis type: sepsis due to unspecified organism Qualified Code(s): A41.9 - Sepsis, unspecified organism Is this a current diagnosis for this admission?: Yes (2) Osteomyelitis of toe of left foot Is this a current diagnosis for this admission?: Yes (3) Acute exacerbation of COPD with asthma Is this a current diagnosis for this admission?: Yes (4) COPD exacerbation Is this a current diagnosis for this admission?: Yes (5) CKD (chronic kidney disease) Qualifiers: Chronic kidney disease stage: stage 3 (moderate) Qualified Code(s): N18.3 - Chronic kidney disease, stage 3 (moderate) Is this a current diagnosis for this admission?: Yes (6) Diabetes Qualifiers: Diabetes mellitus type: type 2 Diabetes mellitus complication detail: with polyneuropathy Diabetes mellitus residential insulin use: with residential use Is this a current diagnosis for this admission?: Yes (7) Bipolar disorder Qualifiers: Active/Remission status: remission status unspecified Qualified Code(s): F31.9 - Bipolar disorder, unspecified Is this a current diagnosis for this admission?: Yes (8) Cocaine abuse Is this a current diagnosis for this admission?: Yes - Time Time Spent with patient: Less than 15 minutes - Plan Summary Plan Summary: Continue current pain management. Continue IV antibiotics for a total of 2 weeks since amputation. We will consult senior materials planner for possible subacute care.
--- NOTE | 2017-07-29 11:59 | PDOC PROGRESS REPORT ---
Subjective Progress Note for:: 07/29/17 Physical Exam Vital Signs: Temp Pulse Resp BP Pulse Ox 97.7 F 85 17 117/64 97 07/29/17 04:27 07/29/17 07:00 07/29/17 04:27 07/29/17 04:27 07/29/17 04:27 Intake & Output 07/28/17 07/29/17 07/30/17 06:59 06:59 06:59 Intake Total 1360 1560 Output Total 550 900 Balance 810 660 Weight 123.9 kg 123.9 kg General appearance: PRESENT: no acute distress Head exam: PRESENT: atraumatic, normocephalic Mouth exam: PRESENT: moist, neck supple Neck exam: ABSENT: lymphadenopathy, tenderness, thyromegaly, tracheal deviation Respiratory exam: PRESENT: clear to auscultation vanessa Cardiovascular exam: PRESENT: RRR Extremities exam: PRESENT: other - Dressing changed, packing replaced, no signs of active infection wound measuring 7 x 6 x 4cms Neurological exam: PRESENT: alert, awake, oriented to person, oriented to place , oriented to time, oriented to situation, CN II-XII grossly intact. ABSENT: motor sensory deficit Results Laboratory Results: 07/28/17 04:11 07/28/17 04:11 Impressions: Renal Ultrasound 07/16/17 00:00 IMPRESSION: No hydronephrosis. Chest X-Ray 07/16/17 11:43 IMPRESSION: NO ACUTE RADIOGRAPHIC FINDING IN THE CHEST. Lower Extremity MRI 07/21/17 00:00 IMPRESSION: Probable osteomyelitis involving the distal 5th metatarsal. No focal abscess. There is diffuse soft tissue edema. Guidance Fluoroscopy 07/28/17 00:00 IMPRESSION: SUCCESSFUL PLACEMENT OF A 5 FR DUAL LUMEN 42 CM PICC IN THE LEFT BASILIC VEIN. Interventional Vascular Procedure 07/28/17 00:00 IMPRESSION: SUCCESSFUL PLACEMENT OF A 5 FR DUAL LUMEN 42 CM PICC IN THE LEFT BASILIC VEIN. PICC Line Insertion 07/28/17 00:00 IMPRESSION: SUCCESSFUL PLACEMENT OF A 5 FR DUAL LUMEN 42 CM PICC IN THE LEFT BASILIC VEIN. Assessment & Plan - Diagnosis (1) Osteomyelitis of toe of left foot Is this a current diagnosis for this admission?: Yes Plan: Agree with medicine planned for 2 weeks of antibiotics with subacute care and assistance with wound management. Continue daily dressing changes with change of iodoform gauze by nursing. Superficially 4 x 4's ABD and Kerlix wrap. - Time Time Spent with patient: Less than 15 minutes
[2017-07-29] MEDS: ARIPIPRAZOLE 5 MG TABLET PO SCH (18:09)
[2017-07-29] MEDS: LEVOFLOXACIN 750 MG/D5W RTU 750 MG/150 ML RTUPB IV SCH (21:19)
[2017-07-29] MEDS: SIMVASTATIN 10 MG TABLET PO SCH (21:20)
[2017-07-29] MEDS: ZOLPIDEM TARTRATE 5 MG TABLET PO SCH (21:21)
[2017-07-29] MEDS: NORMAL SALINE IV SCH (23:15)
[2017-07-29] MEDS: DAPTOMYCIN IV SCH (23:15)
[2017-07-30] MEDS: OXYCODONE HCL IR 5 MG TABLET PO PRN ×3 (03:50→22:07)
[2017-07-30] MEDS: HYDRALAZINE HCL 50 MG TABLET PO SCH ×3 (05:48→22:09)
[2017-07-30] MEDS: KETOROLAC TROMETHAMINE INJ/PF 30 MG/1 ML SDV IV SCH (05:48)
[2017-07-30 06:17] LABS: ANION GAP 8 (5-19); BLOOD UREA NITROGEN 32 mg/dL (7-20); CALCIUM 9.1 mg/dL (8.4-10.2); CARBON DIOXIDE 28 mmol/L (22-30); CHLORIDE 101 mmol/L (98-107); CREATININE RESULT 1.91 mg/dL (0.52-1.25); GLUCOSE 194 mg/dL (75-110)
[2017-07-30] MEDS: NORMAL SALINE 10 ML SDV (SCHEDULED) IV SCH ×2 (09:01→22:10)
[2017-07-30] MEDS: FLUTICASONE NASAL SPRAY 50 MCG/SPRY 120 SPRAY/16 GM NASL SCH (09:01)
[2017-07-30] MEDS: INSULIN LISPRO 100 UNIT/ML 3 ML VIAL SUBCUT PRN ×3 (09:02→22:06)
[2017-07-30] MEDS: INSULIN LISPRO 100 UNIT/ML 3 ML VIAL SUBCUT SCH ×3 (09:02→17:21)
[2017-07-30] MEDS: INSULIN GLARGINE,HUM.REC.ANLOG 1,000 UNIT/10 ML UNIT SUBCUT SCH ×2 (09:03→17:21)
[2017-07-30] MEDS: GABAPENTIN 400 MG CAPSULE PO SCH ×2 (09:03→22:27)
[2017-07-30] MEDS: FLUOXETINE HCL 20 MG CAPSULE PO SCH (09:04)
[2017-07-30] MEDS: AMITRIPTYLINE HCL 25 MG TABLET PO SCH (09:04)
[2017-07-30] MEDS: CLONIDINE HCL 0.1 MG TABLET PO SCH ×2 (09:04→22:26)
[2017-07-30] MEDS: SODIUM BICARBONATE 650 MG TABLET PO SCH (09:04)
--- NOTE | 2017-07-30 09:13 | PDOC PROGRESS REPORT ---
Subjective Progress Note for:: 07/30/17 Subjective:: No complaints Physical Exam Vital Signs: Temp Pulse Resp BP Pulse Ox 97.7 F 80 16 151/95 H 99 07/30/17 07:49 07/30/17 07:49 07/30/17 07:49 07/30/17 07:49 07/30/17 07:49 Intake & Output 07/29/17 07/30/17 07/31/17 06:59 06:59 06:59 Intake Total 1560 2086 Output Total 900 1600 Balance 660 486 Weight 123.9 kg 123.9 kg Extremities exam: PRESENT: other - Left foot wound is clean with no purulent discharge and with no necrotic tissue. Results Laboratory Results: 07/28/17 04:11 07/30/17 05:15 07/30/17 05:15 Sodium 137.0 Potassium 5.0 Chloride 101 Carbon Dioxide 28 Anion Gap 8 BUN 32 H Creatinine 1.91 H Est GFR ( Amer) 46 L Est GFR (Non-Af Amer) 38 L Glucose 194 H Calcium 9.1 07/27/17 17:40 Foot - Left Gram Stain - Final Impressions: Renal Ultrasound 07/16/17 00:00 IMPRESSION: No hydronephrosis. Chest X-Ray 07/16/17 11:43 IMPRESSION: NO ACUTE RADIOGRAPHIC FINDING IN THE CHEST. Lower Extremity MRI 07/21/17 00:00 IMPRESSION: Probable osteomyelitis involving the distal 5th metatarsal. No focal abscess. There is diffuse soft tissue edema. Guidance Fluoroscopy 07/28/17 00:00 IMPRESSION: SUCCESSFUL PLACEMENT OF A 5 FR DUAL LUMEN 42 CM PICC IN THE LEFT BASILIC VEIN. Interventional Vascular Procedure 07/28/17 00:00 IMPRESSION: SUCCESSFUL PLACEMENT OF A 5 FR DUAL LUMEN 42 CM PICC IN THE LEFT BASILIC VEIN. PICC Line Insertion 07/28/17 00:00 IMPRESSION: SUCCESSFUL PLACEMENT OF A 5 FR DUAL LUMEN 42 CM PICC IN THE LEFT BASILIC VEIN. Assessment & Plan - Diagnosis (1) Diabetic infection of left foot Is this a current diagnosis for this admission?: Yes Plan: Status post excisional debridement. Wound looks very good. Continue local wound care. May discharge patient out of the hospital. Follow-up at wound care clinic.
[2017-07-30] MEDS: ATENOLOL 50 MG TABLET PO SCH (11:42)
--- NOTE | 2017-07-30 13:49 | PDOC PROGRESS REPORT ---
Subjective Progress Note for:: 07/30/17 Subjective:: Patient improving slowly. Pain is better controlled. Denies having any diarrhea. Slept well last night. Physical Exam Vital Signs: Temp Pulse Resp BP Pulse Ox 97.7 F 80 16 151/95 H 99 07/30/17 07:49 07/30/17 07:49 07/30/17 07:49 07/30/17 07:49 07/30/17 07:49 Intake & Output 07/29/17 07/30/17 07/31/17 06:59 06:59 06:59 Intake Total 1560 2086 Output Total 900 1600 Balance 660 486 Weight 123.9 kg 123.9 kg General appearance: PRESENT: no acute distress, cooperative, morbidly obese Head exam: PRESENT: normocephalic Eye exam: PRESENT: EOMI Mouth exam: PRESENT: moist, neck supple Extremities exam: PRESENT: pedal edema - Bilateral left more than the right Neurological exam: PRESENT: alert, awake, oriented to situation Skin exam: PRESENT: dry, warm, other - Wound dressing on the left foot minimal sanguinous drainage. ABSENT: cyanosis Results Laboratory Results: 07/28/17 04:11 07/30/17 05:15 07/30/17 05:15 Sodium 137.0 Potassium 5.0 Chloride 101 Carbon Dioxide 28 Anion Gap 8 BUN 32 H Creatinine 1.91 H Est GFR ( Amer) 46 L Est GFR (Non-Af Amer) 38 L Glucose 194 H Calcium 9.1 07/27/17 17:40 Foot - Left Gram Stain - Final Impressions: Renal Ultrasound 07/16/17 00:00 IMPRESSION: No hydronephrosis. Chest X-Ray 07/16/17 11:43 IMPRESSION: NO ACUTE RADIOGRAPHIC FINDING IN THE CHEST. Lower Extremity MRI 07/21/17 00:00 IMPRESSION: Probable osteomyelitis involving the distal 5th metatarsal. No focal abscess. There is diffuse soft tissue edema. Guidance Fluoroscopy 07/28/17 00:00 IMPRESSION: SUCCESSFUL PLACEMENT OF A 5 FR DUAL LUMEN 42 CM PICC IN THE LEFT BASILIC VEIN. Interventional Vascular Procedure 07/28/17 00:00 IMPRESSION: SUCCESSFUL PLACEMENT OF A 5 FR DUAL LUMEN 42 CM PICC IN THE LEFT BASILIC VEIN. PICC Line Insertion 07/28/17 00:00 IMPRESSION: SUCCESSFUL PLACEMENT OF A 5 FR DUAL LUMEN 42 CM PICC IN THE LEFT BASILIC VEIN. Assessment & Plan - Diagnosis (1) Sepsis Qualifiers: Sepsis type: sepsis due to unspecified organism Qualified Code(s): A41.9 - Sepsis, unspecified organism Is this a current diagnosis for this admission?: Yes (2) Osteomyelitis of toe of left foot Is this a current diagnosis for this admission?: Yes (3) Acute exacerbation of COPD with asthma Is this a current diagnosis for this admission?: Yes (4) COPD exacerbation Is this a current diagnosis for this admission?: Yes (5) CKD (chronic kidney disease) Qualifiers: Chronic kidney disease stage: stage 3 (moderate) Qualified Code(s): N18.3 - Chronic kidney disease, stage 3 (moderate) Is this a current diagnosis for this admission?: Yes (6) Diabetes Qualifiers: Diabetes mellitus type: type 2 Diabetes mellitus complication detail: with polyneuropathy Diabetes mellitus correction insulin use: with terminal operations manager use Is this a current diagnosis for this admission?: Yes (7) Bipolar disorder Qualifiers: Active/Remission status: remission status unspecified Qualified Code(s): F31.9 - Bipolar disorder, unspecified Is this a current diagnosis for this admission?: Yes (8) Cocaine abuse Is this a current diagnosis for this admission?: Yes - Time Time Spent with patient: 15-24 minutes - Plan Summary Plan Summary: Continue current antibiotic. Follow cultures. Patient has Proteus on the recent culture performed by the surgery during operation. It is sensitive to Levaquin. This is day 3 of 14 of IV antibiotics.
[2017-07-30] MEDS: CYCLOBENZAPRINE HCL 10 MG TABLET PO PRN (14:32)
[2017-07-30] MEDS: ARIPIPRAZOLE 5 MG TABLET PO SCH (17:21)
[2017-07-30] MEDS: LEVOFLOXACIN 750 MG TABLET PO SCH (22:06)
[2017-07-30] MEDS: SIMVASTATIN 10 MG TABLET PO SCH (22:07)
[2017-07-30] MEDS: ZOLPIDEM TARTRATE 5 MG TABLET PO SCH (22:08)
[2017-07-30] MEDS: DAPTOMYCIN IV SCH (22:09)
[2017-07-30] MEDS: NORMAL SALINE IV SCH (22:09)
[2017-07-31] MEDS: HYDRALAZINE HCL 50 MG TABLET PO SCH ×3 (05:27→21:15)
[2017-07-31] MEDS: OXYCODONE HCL IR 5 MG TABLET PO PRN ×3 (05:27→20:40)
[2017-07-31] MEDS: CYCLOBENZAPRINE HCL 10 MG TABLET PO PRN (05:28)
[2017-07-31] MEDS: INSULIN LISPRO 100 UNIT/ML 3 ML VIAL SUBCUT SCH ×3 (08:30→18:49)
--- NOTE | 2017-07-31 09:33 | PDOC PROGRESS REPORT ---
Subjective Progress Note for:: 07/31/17 Subjective:: Patient voiced no complaints. No diarrhea. Lower extremity pain is controlled. Physical Exam Vital Signs: Temp Pulse Resp BP Pulse Ox 98.1 F 82 17 136/85 H 99 07/31/17 07:33 07/31/17 07:33 07/31/17 07:33 07/31/17 07:33 07/31/17 07:33 Intake & Output 07/30/17 07/31/17 08/01/17 06:59 06:59 06:59 Intake Total 2086 1610 Output Total 1600 200 Balance 486 1410 Weight 123.9 kg 123.9 kg General appearance: PRESENT: no acute distress, morbidly obese Skin exam: PRESENT: other - Foot dressing with some minimal sanguinous drainage that are dry. No foul-smelling drainage is noted. Results Laboratory Results: 07/28/17 04:11 07/30/17 05:15 07/27/17 17:40 Foot - Left Gram Stain - Final Impressions: Renal Ultrasound 07/16/17 00:00 IMPRESSION: No hydronephrosis. Chest X-Ray 07/16/17 11:43 IMPRESSION: NO ACUTE RADIOGRAPHIC FINDING IN THE CHEST. Lower Extremity MRI 07/21/17 00:00 IMPRESSION: Probable osteomyelitis involving the distal 5th metatarsal. No focal abscess. There is diffuse soft tissue edema. Guidance Fluoroscopy 07/28/17 00:00 IMPRESSION: SUCCESSFUL PLACEMENT OF A 5 FR DUAL LUMEN 42 CM PICC IN THE LEFT BASILIC VEIN. Interventional Vascular Procedure 07/28/17 00:00 IMPRESSION: SUCCESSFUL PLACEMENT OF A 5 FR DUAL LUMEN 42 CM PICC IN THE LEFT BASILIC VEIN. PICC Line Insertion 07/28/17 00:00 IMPRESSION: SUCCESSFUL PLACEMENT OF A 5 FR DUAL LUMEN 42 CM PICC IN THE LEFT BASILIC VEIN. Assessment & Plan - Diagnosis (1) Sepsis Qualifiers: Sepsis type: sepsis due to unspecified organism Qualified Code(s): A41.9 - Sepsis, unspecified organism Is this a current diagnosis for this admission?: Yes (2) Osteomyelitis of toe of left foot Is this a current diagnosis for this admission?: Yes (3) Acute exacerbation of COPD with asthma Is this a current diagnosis for this admission?: Yes (4) COPD exacerbation Is this a current diagnosis for this admission?: Yes (5) CKD (chronic kidney disease) Qualifiers: Chronic kidney disease stage: stage 3 (moderate) Qualified Code(s): N18.3 - Chronic kidney disease, stage 3 (moderate) Is this a current diagnosis for this admission?: Yes (6) Diabetes Qualifiers: Diabetes mellitus type: type 2 Diabetes mellitus complication detail: with polyneuropathy Diabetes mellitus moth exterminator insulin use: with moth exterminator use Is this a current diagnosis for this admission?: Yes (7) Bipolar disorder Qualifiers: Active/Remission status: remission status unspecified Qualified Code(s): F31.9 - Bipolar disorder, unspecified Is this a current diagnosis for this admission?: Yes (8) Cocaine abuse Is this a current diagnosis for this admission?: Yes - Time Time Spent with patient: Less than 15 minutes - Plan Summary Plan Summary: Continue IV antibiotics. Continue supportive care, current pain management, and wound care.
[2017-07-31] MEDS: FLUOXETINE HCL 20 MG CAPSULE PO SCH (10:29)
[2017-07-31] MEDS: AMITRIPTYLINE HCL 25 MG TABLET PO SCH (10:30)
[2017-07-31] MEDS: GABAPENTIN 400 MG CAPSULE PO SCH ×2 (10:30→21:14)
[2017-07-31] MEDS: ATENOLOL 50 MG TABLET PO SCH (10:30)
[2017-07-31] MEDS: CLONIDINE HCL 0.1 MG TABLET PO SCH ×2 (10:31→21:14)
[2017-07-31] MEDS: SODIUM BICARBONATE 650 MG TABLET PO SCH (10:31)
[2017-07-31] MEDS: NORMAL SALINE 10 ML SDV (SCHEDULED) IV SCH ×2 (10:32→21:15)
[2017-07-31] MEDS: INSULIN GLARGINE,HUM.REC.ANLOG 1,000 UNIT/10 ML UNIT SUBCUT SCH ×2 (10:32→21:15)
[2017-07-31] MEDS: FLUTICASONE NASAL SPRAY 50 MCG/SPRY 120 SPRAY/16 GM NASL SCH (10:33)
[2017-07-31] MEDS: ARIPIPRAZOLE 5 MG TABLET PO SCH (18:52)
[2017-07-31] MEDS: LEVOFLOXACIN 750 MG TABLET PO SCH (20:40)
[2017-07-31] MEDS: ZOLPIDEM TARTRATE 5 MG TABLET PO SCH (21:14)
[2017-07-31] MEDS: SIMVASTATIN 10 MG TABLET PO SCH (21:14)
[2017-07-31] MEDS: NORMAL SALINE IV SCH (21:15)
[2017-07-31] MEDS: INSULIN LISPRO 100 UNIT/ML 3 ML VIAL SUBCUT PRN (21:15)
[2017-07-31] MEDS: DAPTOMYCIN IV SCH (21:15)
--- NOTE | 2017-07-31 22:23 | PROGRESS NOTE E ---
Progress Note NAME: MILADYS LONDON : 1970 AGE: 46Y DATE: 07/31/2017 ROOM: 409 SUBJECTIVE: Patient is postop day #4. Patient had surgery on 07/27/2017 for incision and debridement of left lateral foot with transmetatarsal amputation of the fifth digit. Today, patient still has some pain on the left foot but much less compared to prior to surgery. There is still swelling of both lower legs this time. The swelling on the left leg is decreased considerably after the surgery. PLAN: The plan is to continue the patient with IV antibiotics for the next 2 days and possibly discharge on p.o. antibiotics afterwards. [facility]. DICTATING PHYSICIAN: BUD LAZO M.D. [id number] PHY#: [id number] ID: [id number] JOB#: [id number] ACCT: [id number] cc: > MTDD
[2017-08-01] MEDS: OXYCODONE HCL IR 5 MG TABLET PO PRN ×4 (03:19→23:04)
[2017-08-01] MEDS: HYDRALAZINE HCL 50 MG TABLET PO SCH ×3 (06:27→21:09)
[2017-08-01] MEDS: INSULIN LISPRO 100 UNIT/ML 3 ML VIAL SUBCUT SCH ×3 (08:09→16:32)
--- NOTE | 2017-08-01 09:24 | PDOC PROGRESS REPORT ---
Subjective Progress Note for:: 08/01/17 Subjective:: Patient started to develop diarrhea. Likewise complained of lower extremity edema bilaterally. Denies chills or fever. Pain is controlled. No foul- smelling drainage noted on the wound. No chest pain or shortness of breath. Physical Exam Vital Signs: Temp Pulse Resp BP Pulse Ox 98.6 F 85 16 120/63 98 08/01/17 04:00 08/01/17 07:00 08/01/17 04:00 08/01/17 04:00 08/01/17 04:00 Intake & Output 07/31/17 08/01/17 08/02/17 06:59 06:59 06:59 Intake Total 1610 1300 Output Total 200 600 Balance 1410 700 Weight 123.9 kg 112.5 kg General appearance: PRESENT: no acute distress, cooperative Head exam: PRESENT: normocephalic Eye exam: PRESENT: EOMI Mouth exam: PRESENT: moist, neck supple Neck exam: ABSENT: JVD Respiratory exam: PRESENT: clear to auscultation vanessa Cardiovascular exam: PRESENT: RRR GI/Abdominal exam: PRESENT: soft. ABSENT: distended - Obese Extremities exam: PRESENT: +1 edema - Bilateral, other - Foot dressing seems to be clean and dry with no foul-smelling drainage. Neurological exam: PRESENT: alert, awake, oriented to situation Skin exam: PRESENT: dry, warm. ABSENT: cyanosis Results Laboratory Results: 07/28/17 04:11 07/30/17 05:15 07/27/17 17:40 Foot - Left Gram Stain - Final Impressions: Renal Ultrasound 07/16/17 00:00 IMPRESSION: No hydronephrosis. Chest X-Ray 07/16/17 11:43 IMPRESSION: NO ACUTE RADIOGRAPHIC FINDING IN THE CHEST. Lower Extremity MRI 07/21/17 00:00 IMPRESSION: Probable osteomyelitis involving the distal 5th metatarsal. No focal abscess. There is diffuse soft tissue edema. Guidance Fluoroscopy 07/28/17 00:00 IMPRESSION: SUCCESSFUL PLACEMENT OF A 5 FR DUAL LUMEN 42 CM PICC IN THE LEFT BASILIC VEIN. Interventional Vascular Procedure 07/28/17 00:00 IMPRESSION: SUCCESSFUL PLACEMENT OF A 5 FR DUAL LUMEN 42 CM PICC IN THE LEFT BASILIC VEIN. PICC Line Insertion 07/28/17 00:00 IMPRESSION: SUCCESSFUL PLACEMENT OF A 5 FR DUAL LUMEN 42 CM PICC IN THE LEFT BASILIC VEIN. Assessment & Plan - Diagnosis (1) Sepsis Qualifiers: Sepsis type: sepsis due to unspecified organism Qualified Code(s): A41.9 - Sepsis, unspecified organism Is this a current diagnosis for this admission?: Yes (2) Osteomyelitis of toe of left foot Is this a current diagnosis for this admission?: Yes (3) Acute exacerbation of COPD with asthma Is this a current diagnosis for this admission?: Yes (4) COPD exacerbation Is this a current diagnosis for this admission?: Yes (5) CKD (chronic kidney disease) Qualifiers: Chronic kidney disease stage: stage 3 (moderate) Qualified Code(s): N18.3 - Chronic kidney disease, stage 3 (moderate) Is this a current diagnosis for this admission?: Yes (6) Diabetes Qualifiers: Diabetes mellitus type: type 2 Diabetes mellitus complication detail: with polyneuropathy Diabetes mellitus snf insulin use: with snf use Is this a current diagnosis for this admission?: Yes (7) Bipolar disorder Qualifiers: Active/Remission status: remission status unspecified Qualified Code(s): F31.9 - Bipolar disorder, unspecified Is this a current diagnosis for this admission?: Yes (8) Cocaine abuse Is this a current diagnosis for this admission?: Yes - Time Time Spent with patient: 25-34 minutes - Plan Summary Plan Summary: Obtain lower extremity venous Doppler. Begin lactobacillus and Flagyl. Check stool for Clostridium difficile toxin. DVT prophylaxis with Lovenox. Discontinue SCDs. Continue current antibiotics.
[2017-08-01] MEDS: INSULIN GLARGINE,HUM.REC.ANLOG 1,000 UNIT/10 ML UNIT SUBCUT SCH ×2 (10:10→18:20)
[2017-08-01] MEDS: FLUTICASONE NASAL SPRAY 50 MCG/SPRY 120 SPRAY/16 GM NASL SCH (10:16)
[2017-08-01] MEDS: LACTOBACILLUS ACIDOPHILUS 250 MG TAB PO SCH ×2 (10:16→18:24)
[2017-08-01] MEDS: GABAPENTIN 400 MG CAPSULE PO SCH ×2 (10:16→21:08)
[2017-08-01] MEDS: ATENOLOL 50 MG TABLET PO SCH (10:17)
[2017-08-01] MEDS: AMITRIPTYLINE HCL 25 MG TABLET PO SCH (10:17)
[2017-08-01] MEDS: SODIUM BICARBONATE 650 MG TABLET PO SCH (10:17)
[2017-08-01] MEDS: CLONIDINE HCL 0.1 MG TABLET PO SCH ×2 (10:17→21:08)
[2017-08-01] MEDS: ENOXAPARIN SODIUM INJ 40 MG/0.4 ML DISP.SYRIN SUBCUT SCH (10:18)
[2017-08-01] MEDS: FLUOXETINE HCL 20 MG CAPSULE PO SCH (10:18)
[2017-08-01] MEDS: NORMAL SALINE 10 ML SDV (SCHEDULED) IV SCH ×2 (10:18→21:25)
[2017-08-01] MEDS: NORMAL SALINE 10 ML SDV (AFTER EACH USE) IV PRN (12:00)
[2017-08-01 12:14] LABS: HEMATOCRIT 24.5 % (37.9-51.0); HEMOGLOBIN 8.2 g/dL (13.5-17.0); HGB HCT DIFFERENCE 0.1; MEAN CORPUSCULAR HEMOGLOBIN 27.4 pg (27.0-33.4); MEAN CORPUSCULAR HGB CONC 33.4 g/dL (32.0-36.0); MEAN CORPUSCULAR VOLUME 82 fl (80-97); RED BLOOD COUNT 2.98 10^6/uL (4.35-5.55); RED CELL DISTRIBUTION WIDTH 15.1 % (11.5-14.0); WHITE BLOOD COUNT 5.3 10^3/uL (4.0-10.5)
[2017-08-01 12:17] LABS: PROTHROMBIN TIME 12.7 SEC (11.4-15.4)
[2017-08-01 12:31] LABS: CREATININE RESULT 1.58 mg/dL (0.52-1.25)
[2017-08-01] MEDS: METRONIDAZOLE 500 MG TABLET PO SCH ×2 (14:31→21:07)
--- NOTE | 2017-08-01 15:38 | PROGRESS NOTE E ---
Progress Note NAME: MILADYS LONDON : 1970 AGE: 46Y DATE: 08/01/2017 ROOM: 409 The patient is post amputation of the left fourth metatarsal bone. He is still complaining of a considerable amount of pain and especially now that he is starting to walk again. The dressing is dry on the left foot and the swelling is slightly more compared to yesterday. I ordered morphine 2 mg IV every 8 hours p.r.n. for pain because he wants parenteral pain medication on top of his p.o. pain meds. Continue with the IV antibiotic therapy. DICTATING PHYSICIAN: BUD LAZO M.D. [id number] PHY#: [id number] ID: [id number] JOB#: [id number] ACCT: [id number] cc: >
[2017-08-01] MEDS: ARIPIPRAZOLE 5 MG TABLET PO SCH (18:24)
--- NOTE | 2017-08-01 20:00 | XCELERA REPORT ---
[address] [address] Lower Extremity Venous Evaluation Name: MILADYS LONDON III Age: 46 yrs Gender: Male : 1970 Patient Status: Inpatient Patient Location: [address] [place] [address] Study Date: 08/01/2017 12:30 PM Procedure: Color flow and duplex imaging bilaterally of the veins of the lower extremities as well as the Common Femoral veins. Reason For Study: edema/DVT Ordering Physician: REINIER WILSON Performed By: Jeanette Han Right Sided Venous Evaluation Normal vessel filling wall to wall, compression and augmentation as well as Colour flow down to the infrageniculate veins. Left Sided Venous Evaluation Normal vessel filling wall to wall, compression and augmentation as well as Colour flow down to the infrageniculate veins. Interpretation Summary No duplex evidence of DVT or obstruction in the bilateral lower extremities. : REINIER WILSON > Delano Wray
[2017-08-01] MEDS: ZOLPIDEM TARTRATE 5 MG TABLET PO SCH (21:07)
[2017-08-01] MEDS: LEVOFLOXACIN 750 MG TABLET PO SCH (21:07)
[2017-08-01] MEDS: SIMVASTATIN 10 MG TABLET PO SCH (21:08)
[2017-08-01] MEDS: DAPTOMYCIN IV SCH (21:16)
[2017-08-01] MEDS: NORMAL SALINE IV SCH (21:16)
[2017-08-01] MEDS: INSULIN LISPRO 100 UNIT/ML 3 ML VIAL SUBCUT PRN (21:35)
[2017-08-02] MEDS: OXYCODONE HCL IR 5 MG TABLET PO PRN ×3 (03:51→21:31)
[2017-08-02] MEDS: METRONIDAZOLE 500 MG TABLET PO SCH (06:50)
[2017-08-02] MEDS: HYDRALAZINE HCL 50 MG TABLET PO SCH ×3 (06:50→21:17)
[2017-08-02] MEDS: INSULIN LISPRO 100 UNIT/ML 3 ML VIAL SUBCUT SCH ×3 (08:19→16:45)
[2017-08-02] MEDS: INSULIN GLARGINE,HUM.REC.ANLOG 1,000 UNIT/10 ML UNIT SUBCUT SCH ×2 (09:09→17:24)
[2017-08-02] MEDS: ENOXAPARIN SODIUM INJ 40 MG/0.4 ML DISP.SYRIN SUBCUT SCH (09:12)
[2017-08-02] MEDS: CLONIDINE HCL 0.1 MG TABLET PO SCH ×2 (09:17→21:15)
[2017-08-02] MEDS: SODIUM BICARBONATE 650 MG TABLET PO SCH (09:17)
[2017-08-02] MEDS: GABAPENTIN 400 MG CAPSULE PO SCH ×2 (09:17→21:15)
[2017-08-02] MEDS: FLUOXETINE HCL 20 MG CAPSULE PO SCH (09:17)
[2017-08-02] MEDS: AMITRIPTYLINE HCL 25 MG TABLET PO SCH (09:18)
[2017-08-02] MEDS: LACTOBACILLUS ACIDOPHILUS 250 MG TAB PO SCH ×2 (09:18→17:27)
[2017-08-02] MEDS: NORMAL SALINE 10 ML SDV (SCHEDULED) IV SCH ×2 (09:19→21:31)
[2017-08-02] MEDS: ERGOCALCIFEROL (VITAMIN D2) 50000 UNIT (1.25 MG) CAPSULE PO SCH (09:22)
[2017-08-02] MEDS: ATENOLOL 50 MG TABLET PO SCH (09:23)
[2017-08-02] MEDS: FLUTICASONE NASAL SPRAY 50 MCG/SPRY 120 SPRAY/16 GM NASL SCH (09:24)
--- NOTE | 2017-08-02 10:30 | PDOC PROGRESS REPORT ---
Subjective Progress Note for:: 08/02/17 Subjective:: Edema is about the same. Diarrhea is less. No chills or fever. No nausea vomiting or shortness of breath. No chest pain, palpitation, dizziness or lightheadedness. Physical Exam Vital Signs: Temp Pulse Resp BP Pulse Ox 98.1 F 88 18 143/82 H 99 08/02/17 08:18 08/02/17 08:18 08/02/17 08:18 08/02/17 08:18 08/02/17 08:18 Intake & Output 08/01/17 08/02/17 08/03/17 06:59 06:59 06:59 Intake Total 1300 1700 Output Total 600 1300 Balance 700 400 Weight 112.5 kg 112.5 kg General appearance: PRESENT: no acute distress, morbidly obese Head exam: PRESENT: normocephalic Eye exam: PRESENT: EOMI Mouth exam: PRESENT: moist, neck supple Neck exam: ABSENT: JVD Respiratory exam: PRESENT: clear to auscultation vanessa. ABSENT: rhonchi, wheezes Cardiovascular exam: PRESENT: RRR. ABSENT: gallop GI/Abdominal exam: PRESENT: hypoactive bowel sounds, soft. ABSENT: distended - Obese Extremities exam: PRESENT: +1 edema Neurological exam: PRESENT: alert, awake, oriented to situation Skin exam: PRESENT: dry, warm. ABSENT: cyanosis Results Laboratory Results: 08/01/17 11:40 08/01/17 11:40 08/01/17 08/01/17 11:40 11:40 WBC 5.3 RBC 2.98 L Hgb 8.2 L Hct 24.5 L MCV 82 MCH 27.4 MCHC 33.4 RDW 15.1 H Plt Count 289 Creatinine 1.58 H Est GFR ( Amer) 57 L Est GFR (Non-Af Amer) 47 L 07/27/17 17:40 Foot - Left Gram Stain - Final Impressions: Renal Ultrasound 07/16/17 00:00 IMPRESSION: No hydronephrosis. Chest X-Ray 07/16/17 11:43 IMPRESSION: NO ACUTE RADIOGRAPHIC FINDING IN THE CHEST. Lower Extremity MRI 07/21/17 00:00 IMPRESSION: Probable osteomyelitis involving the distal 5th metatarsal. No focal abscess. There is diffuse soft tissue edema. Guidance Fluoroscopy 07/28/17 00:00 IMPRESSION: SUCCESSFUL PLACEMENT OF A 5 FR DUAL LUMEN 42 CM PICC IN THE LEFT BASILIC VEIN. Interventional Vascular Procedure 07/28/17 00:00 IMPRESSION: SUCCESSFUL PLACEMENT OF A 5 FR DUAL LUMEN 42 CM PICC IN THE LEFT BASILIC VEIN. PICC Line Insertion 07/28/17 00:00 IMPRESSION: SUCCESSFUL PLACEMENT OF A 5 FR DUAL LUMEN 42 CM PICC IN THE LEFT BASILIC VEIN. Assessment & Plan - Diagnosis (1) Sepsis Qualifiers: Sepsis type: sepsis due to unspecified organism Qualified Code(s): A41.9 - Sepsis, unspecified organism Is this a current diagnosis for this admission?: Yes (2) Osteomyelitis of toe of left foot Is this a current diagnosis for this admission?: Yes (3) Acute exacerbation of COPD with asthma Is this a current diagnosis for this admission?: Yes (4) COPD exacerbation Is this a current diagnosis for this admission?: Yes (5) CKD (chronic kidney disease) Qualifiers: Chronic kidney disease stage: stage 3 (moderate) Qualified Code(s): N18.3 - Chronic kidney disease, stage 3 (moderate) Is this a current diagnosis for this admission?: Yes (6) Diabetes Qualifiers: Diabetes mellitus type: type 2 Diabetes mellitus complication detail: with polyneuropathy Diabetes mellitus superintendent terminal insulin use: with senior living use Is this a current diagnosis for this admission?: Yes (7) Bipolar disorder Qualifiers: Active/Remission status: remission status unspecified Qualified Code(s): F31.9 - Bipolar disorder, unspecified Is this a current diagnosis for this admission?: Yes (8) Cocaine abuse Is this a current diagnosis for this admission?: Yes - Time Time Spent with patient: 25-34 minutes - Plan Summary Plan Summary: Day number 7 out of 14 of IV antibiotics. We will continue. In the meantime we will begin Demadex for the edema. Continue Flagyl as C. difficile is negative. Continue lactobacillus. Continue supportive care.
[2017-08-02] MEDS ORDERED: TORSEMIDE 20 MG TABLET PO ONE (12:30)
[2017-08-02] MEDS: ARIPIPRAZOLE 5 MG TABLET PO SCH (17:27)
--- NOTE | 2017-08-02 20:53 | PROGRESS NOTE E ---
Progress Note NAME: MILADYS LONDON : 1970 AGE: 46Y DATE: 08/02/2017 ROOM: 409 SUBJECTIVE: The pain in the left foot has diminished considerably. The wound was inspected and noted to be dry and appears to be quite flat. There is no significant amount of necrotic tissue. There is a question of placement of VAC though, maybe quite difficult to put one in at this time. At any rate, we will continue him on IV antibiotic therapy for the time being. Continue with local wound care at this time. DICTATING PHYSICIAN: BUD LAZO M.D. [id number] PHY#: [id number] ID: [id number] JOB#: [id number] ACCT: [id number] cc: >
[2017-08-02] MEDS: LEVOFLOXACIN 750 MG TABLET PO SCH (21:14)
[2017-08-02] MEDS: SIMVASTATIN 10 MG TABLET PO SCH (21:15)
[2017-08-02] MEDS: ZOLPIDEM TARTRATE 5 MG TABLET PO SCH (21:16)
[2017-08-02] MEDS: DAPTOMYCIN IV SCH (21:17)
[2017-08-02] MEDS: NORMAL SALINE 10 ML SDV (AFTER EACH USE) IV PRN (21:17)
[2017-08-02] MEDS: NORMAL SALINE IV SCH (21:17)
[2017-08-03] MEDS: OXYCODONE HCL IR 5 MG TABLET PO PRN ×4 (03:42→22:13)
[2017-08-03] MEDS: HYDRALAZINE HCL 50 MG TABLET PO SCH ×3 (05:10→22:15)
[2017-08-03] MEDS: INSULIN LISPRO 100 UNIT/ML 3 ML VIAL SUBCUT SCH ×3 (07:55→16:50)
[2017-08-03] MEDS: NORMAL SALINE 10 ML SDV (SCHEDULED) IV SCH ×2 (09:12→22:16)
[2017-08-03] MEDS: FLUOXETINE HCL 20 MG CAPSULE PO SCH (09:13)
[2017-08-03] MEDS: CLONIDINE HCL 0.1 MG TABLET PO SCH ×2 (09:13→22:14)
[2017-08-03] MEDS: SODIUM BICARBONATE 650 MG TABLET PO SCH (09:14)
[2017-08-03] MEDS: GABAPENTIN 400 MG CAPSULE PO SCH ×2 (09:14→22:13)
[2017-08-03] MEDS: LACTOBACILLUS ACIDOPHILUS 250 MG TAB PO SCH ×2 (09:14→18:30)
[2017-08-03] MEDS: AMITRIPTYLINE HCL 25 MG TABLET PO SCH (09:14)
[2017-08-03] MEDS: FLUTICASONE NASAL SPRAY 50 MCG/SPRY 120 SPRAY/16 GM NASL SCH (09:15)
[2017-08-03] MEDS: TORSEMIDE 20 MG TABLET PO SCH (09:15)
[2017-08-03] MEDS: INSULIN GLARGINE,HUM.REC.ANLOG 1,000 UNIT/10 ML UNIT SUBCUT SCH ×2 (09:20→18:24)
[2017-08-03] MEDS: ENOXAPARIN SODIUM INJ 40 MG/0.4 ML DISP.SYRIN SUBCUT SCH (09:20)
[2017-08-03 09:58] LABS: ANION GAP 13 (5-19); BLOOD UREA NITROGEN 30 mg/dL (7-20); CALCIUM 9.5 mg/dL (8.4-10.2); CARBON DIOXIDE 30 mmol/L (22-30); CHLORIDE 95 mmol/L (98-107); CREATININE RESULT 1.92 mg/dL (0.52-1.25); GLUCOSE 197 mg/dL (75-110); POTASSIUM 5.2 mmol/L (3.6-5.0)
[2017-08-03] MEDS: ATENOLOL 50 MG TABLET PO SCH (10:32)
--- NOTE | 2017-08-03 11:19 | PDOC PROGRESS REPORT ---
Subjective Progress Note for:: 08/03/17 Subjective:: No diarrhea. Wound without any drainage. He is going to be placed on a wound VAC. Denies any shortness of breath nausea vomiting. Pain is controlled. Physical Exam Vital Signs: Temp Pulse Resp BP Pulse Ox 98.4 F 83 19 116/74 94 08/03/17 07:32 08/03/17 07:32 08/03/17 07:32 08/03/17 07:32 08/03/17 07:32 Intake & Output 08/02/17 08/03/17 08/04/17 06:59 06:59 06:59 Intake Total 1700 2180 Output Total 1300 800 Balance 400 1380 Weight 112.5 kg 128.8 kg General appearance: PRESENT: no acute distress, cooperative, obese Head exam: PRESENT: normocephalic Eye exam: PRESENT: EOMI Mouth exam: PRESENT: moist, neck supple Neck exam: ABSENT: JVD Respiratory exam: PRESENT: clear to auscultation vanessa Cardiovascular exam: PRESENT: RRR. ABSENT: gallop GI/Abdominal exam: PRESENT: soft. ABSENT: distended - Obese, tenderness Extremities exam: PRESENT: +1 edema, other - Foot wound without any purulent drainage. No noted necrotic tissue as well. Neurological exam: PRESENT: alert, awake, oriented to situation Skin exam: PRESENT: dry, warm. ABSENT: cyanosis Results Laboratory Results: 08/01/17 11:40 08/03/17 09:07 08/03/17 09:07 Sodium 138.0 Potassium 5.2 H Chloride 95 L Carbon Dioxide 30 Anion Gap 13 BUN 30 H Creatinine 1.92 H Est GFR ( Amer) 45 L Est GFR (Non-Af Amer) 38 L Glucose 197 H Calcium 9.5 07/27/17 17:40 Foot - Left Gram Stain - Final 07/27/17 17:40 Foot - Left Wound Culture - Final Staphylococcus Aureus Staphylococcus Xylosus Proteus Vulgaris Enterococcus Faecalis(Group D) No Anaerobic Organisms Impressions: Renal Ultrasound 07/16/17 00:00 IMPRESSION: No hydronephrosis. Chest X-Ray 07/16/17 11:43 IMPRESSION: NO ACUTE RADIOGRAPHIC FINDING IN THE CHEST. Lower Extremity MRI 07/21/17 00:00 IMPRESSION: Probable osteomyelitis involving the distal 5th metatarsal. No focal abscess. There is diffuse soft tissue edema. Guidance Fluoroscopy 07/28/17 00:00 IMPRESSION: SUCCESSFUL PLACEMENT OF A 5 FR DUAL LUMEN 42 CM PICC IN THE LEFT BASILIC VEIN. Interventional Vascular Procedure 07/28/17 00:00 IMPRESSION: SUCCESSFUL PLACEMENT OF A 5 FR DUAL LUMEN 42 CM PICC IN THE LEFT BASILIC VEIN. PICC Line Insertion 07/28/17 00:00 IMPRESSION: SUCCESSFUL PLACEMENT OF A 5 FR DUAL LUMEN 42 CM PICC IN THE LEFT BASILIC VEIN. Assessment & Plan - Diagnosis (1) Sepsis Qualifiers: Sepsis type: sepsis due to unspecified organism Qualified Code(s): A41.9 - Sepsis, unspecified organism Is this a current diagnosis for this admission?: Yes (2) Osteomyelitis of toe of left foot Is this a current diagnosis for this admission?: Yes (3) Acute exacerbation of COPD with asthma Is this a current diagnosis for this admission?: Yes (4) COPD exacerbation Is this a current diagnosis for this admission?: Yes (5) CKD (chronic kidney disease) Qualifiers: Chronic kidney disease stage: stage 3 (moderate) Qualified Code(s): N18.3 - Chronic kidney disease, stage 3 (moderate) Is this a current diagnosis for this admission?: Yes (6) Diabetes Qualifiers: Diabetes mellitus type: type 2 Diabetes mellitus complication detail: with polyneuropathy Diabetes mellitus long-term insulin use: with long-term use Is this a current diagnosis for this admission?: Yes (7) Bipolar disorder Qualifiers: Active/Remission status: remission status unspecified Qualified Code(s): F31.9 - Bipolar disorder, unspecified Is this a current diagnosis for this admission?: Yes (8) Cocaine abuse Is this a current diagnosis for this admission?: Yes - Time Time Spent with patient: 15-24 minutes - Plan Summary Plan Summary: Patient is going for a wound VAC. Continue IV antibiotics for another week. Then 2 weeks of oral antibiotic. Has been waiting for bed offers. We will give Kayexalate and recheck creatinine and potassium in the morning. Continue diuretics for now.
[2017-08-03] MEDS ORDERED: SODIUM POLYSTYRENE SULFONATE 15 GM/60 ML PO ONE (11:30)
--- NOTE | 2017-08-03 13:06 | PDOC PROGRESS REPORT ---
Subjective Progress Note for:: 08/03/17 Subjective:: Patient status post debridement of left fifth metatarsal head and body, a week ago, with dressing changes. He remains afebrile. He is shuffling without sandals Physical Exam Vital Signs: Temp Pulse Resp BP Pulse Ox 98.1 F 81 18 112/67 97 08/03/17 11:32 08/03/17 11:32 08/03/17 11:32 08/03/17 11:32 08/03/17 11:32 Intake & Output 08/02/17 08/03/17 08/04/17 06:59 06:59 06:59 Intake Total 1700 2180 Output Total 1300 800 Balance 400 1380 Weight 112.5 kg 128.8 kg General appearance: PRESENT: no acute distress Extremities exam: PRESENT: other - Single removed. Chronic edema and distortion of the forefoot secondary to complications of diabetes. Dressings were removed from lateral aspect of the left foot. Reasonably healthy non-foul- smelling granulating surface. Results Laboratory Results: 08/01/17 11:40 08/03/17 09:07 08/03/17 09:07 Sodium 138.0 Potassium 5.2 H Chloride 95 L Carbon Dioxide 30 Anion Gap 13 BUN 30 H Creatinine 1.92 H Est GFR ( Amer) 45 L Est GFR (Non-Af Amer) 38 L Glucose 197 H Calcium 9.5 07/27/17 17:40 Foot - Left Gram Stain - Final 07/27/17 17:40 Foot - Left Wound Culture - Final Staphylococcus Aureus Staphylococcus Xylosus Proteus Vulgaris Enterococcus Faecalis(Group D) No Anaerobic Organisms Impressions: Renal Ultrasound 07/16/17 00:00 IMPRESSION: No hydronephrosis. Chest X-Ray 07/16/17 11:43 IMPRESSION: NO ACUTE RADIOGRAPHIC FINDING IN THE CHEST. Lower Extremity MRI 07/21/17 00:00 IMPRESSION: Probable osteomyelitis involving the distal 5th metatarsal. No focal abscess. There is diffuse soft tissue edema. Guidance Fluoroscopy 07/28/17 00:00 IMPRESSION: SUCCESSFUL PLACEMENT OF A 5 FR DUAL LUMEN 42 CM PICC IN THE LEFT BASILIC VEIN. Interventional Vascular Procedure 07/28/17 00:00 IMPRESSION: SUCCESSFUL PLACEMENT OF A 5 FR DUAL LUMEN 42 CM PICC IN THE LEFT BASILIC VEIN. PICC Line Insertion 07/28/17 00:00 IMPRESSION: SUCCESSFUL PLACEMENT OF A 5 FR DUAL LUMEN 42 CM PICC IN THE LEFT BASILIC VEIN. Assessment & Plan - Diagnosis (1) Osteomyelitis of toe of left foot Is this a current diagnosis for this admission?: Yes Plan: 1 week status post debridement of left fifth metatarsal head and body. The wound is granulating in. There is no indication for further debridement. Toes 1 and 3 on the left side remain viable Plan: 1. Initiate VAC therapy, black sponge, 25 mmHg suction 2. We will get patient some surgical sandals 3. Patient can stay in the hospital for therapy until ready for discharge home ; she can then [facility].
--- NOTE | 2017-08-03 15:49 | Physician Advisory Note ---
Physician Advisor ProgressNote .: Pursuant to the plan for [facility], I have reviewed the medical record for this patient. Physician Advisor Statement: Please consider documentin. details on the sepsis dx ("due to __, POA"), & pertinent points of early hosp course (both were nicely laid out in progress note of 07/22) - Best to state in each note. Definitely put all of these pertinents in the DCSummary! 2. "obesity w/BMI 41" 3. Medical necessity: reasons pt continues to need to be tx'd in hospital rather than being safe to go to subacute setting for the rest of his IV abx course. - Keeping pt in hospital in hopes of behavioral control - to keep him from hurting himself further by abusing his PICC line for drug abuse - although an understandable desire on the part of physicians, will not be covered by payers if/when that is the only reason he is still here. - However, if pt continues to need close monitoring of renal fn/lytes because of acute use of Demadex (Is this really clinically necessary currently? If so, please make this clear w/reasons. The 08/02 note could be interpreted by an outside reviewer to say Demadex is just being used to make pt's pedal edema feel better) in setting of worsening renal function w/associated recurrent hyperkalemia, or other new or worsening clinical issue, then he may continue to qualify to stay in hospital - for now. - EACH DAY NEEDS DOCUMENTATION OF CLINICAL REASON(S) PT CAN'T CONTINUE HIS DAILY IV ABX AT SUBACUTE SETTING INSTEAD OF HOSPITAL AT THAT POINT. - PLEASE LET DCP KNOW HOW SOON PT CAN TAKE A BED OFFER THIS WEEK - 1-2 DAYS?? 4. "Acute Hyponatremia, likely due to ____" [added 08/04 to this note] Discussion/course so far: Complex 46yo Medicare/Medicaid pt w/underlying HIV (nondetectable counts, on antiretrovirals outpt), DM-2, COPD, CAD, PVD, cocaine/THC/benzos, Anemia of chr dz due to ___, prior Lt foot ray amputations, CKD-3, PTSD, bipolar d/o, tobacco , Rt TKR presented w/COPD exac/AcRespFailure, N/V/D, Lt foot wound/pain, polymicrobial sepsis. He had just finished about a month of tx for sepsis 07/10, with PICC. Per report from nurse, pt admitted at some point that he had used his PICC line to inject illicit substances while at home with it. (What this reviewer sees is attending note in which pt said he only used cocaine intranasally, not IV.) Pt was started on Vanc IV + IV LEvaquin. Vanc was soon changed, given AIXA of 2 , to daptomycin. Workup was done to eval for source of infxn. ECHO didn't show evidence of valvular vegetation. He reported worsening foot pain. MRI showed evidence of new source of foot infection: 5th MT head, associated w/chronic ulcer. Surg was c/s'd & recommended amputation. However, this had to be delayed a few days due to continued hyperkalemia w/ARF. Surgery was performed 07/27. Cx from surgery was polymicrobial. Post-op, pt had worsened pain once up walking on foot, & IV morphine dose was given. Diarrhea developed & was worked up w/neg C.diff. BLE edema was eval'd w /LE dop; then Demadex was begun 08/02, after ARF appeared to be improved. As of 08/03, Cr back up to 1.9s. Surgery placing wound vac, attending giving Kayexalate again, w/re-check of labs, continued Demadex.
[2017-08-03] MEDS: ARIPIPRAZOLE 5 MG TABLET PO SCH (18:30)
[2017-08-03] MEDS: CYCLOBENZAPRINE HCL 10 MG TABLET PO PRN (20:21)
[2017-08-03] MEDS: LEVOFLOXACIN 750 MG TABLET PO SCH (20:22)
[2017-08-03] MEDS: ZOLPIDEM TARTRATE 5 MG TABLET PO SCH (22:13)
[2017-08-03] MEDS: INSULIN LISPRO 100 UNIT/ML 3 ML VIAL SUBCUT PRN (22:13)
[2017-08-03] MEDS: SIMVASTATIN 10 MG TABLET PO SCH (22:15)
[2017-08-03] MEDS: DAPTOMYCIN IV SCH (22:16)
[2017-08-03] MEDS: NORMAL SALINE IV SCH (22:16)
[2017-08-04] MEDS: HYDRALAZINE HCL 50 MG TABLET PO SCH ×3 (05:08→22:02)
[2017-08-04 05:48] LABS: HEMATOCRIT 23.7 % (37.9-51.0); HGB HCT DIFFERENCE 0.3; MEAN CORPUSCULAR HEMOGLOBIN 27.3 pg (27.0-33.4); MEAN CORPUSCULAR HGB CONC 33.5 g/dL (32.0-36.0); MEAN CORPUSCULAR VOLUME 82 fl (80-97); RED BLOOD COUNT 2.91 10^6/uL (4.35-5.55); RED CELL DISTRIBUTION WIDTH 14.6 % (11.5-14.0); WHITE BLOOD COUNT 6.2 10^3/uL (4.0-10.5)
[2017-08-04 06:00] LABS: ANION GAP 7 (5-19); BLOOD UREA NITROGEN 32 mg/dL (7-20); CALCIUM 9.2 mg/dL (8.4-10.2); CARBON DIOXIDE 33 mmol/L (22-30); CHLORIDE 96 mmol/L (98-107); GLUCOSE 119 mg/dL (75-110); POTASSIUM 4.9 mmol/L (3.6-5.0); SODIUM 136.3 mmol/L (137-145)
[2017-08-04] MEDS: ENOXAPARIN SODIUM INJ 40 MG/0.4 ML DISP.SYRIN SUBCUT SCH (11:12)
[2017-08-04] MEDS: INSULIN GLARGINE,HUM.REC.ANLOG 1,000 UNIT/10 ML UNIT SUBCUT SCH ×2 (11:12→17:32)
[2017-08-04] MEDS: INSULIN LISPRO 100 UNIT/ML 3 ML VIAL SUBCUT SCH ×3 (11:13→17:41)
[2017-08-04] MEDS: FLUOXETINE HCL 20 MG CAPSULE PO SCH (11:14)
[2017-08-04] MEDS: CLONIDINE HCL 0.1 MG TABLET PO SCH ×2 (11:14→22:00)
[2017-08-04] MEDS: GABAPENTIN 400 MG CAPSULE PO SCH ×2 (11:14→22:00)
[2017-08-04] MEDS: LACTOBACILLUS ACIDOPHILUS 250 MG TAB PO SCH ×2 (11:14→17:32)
[2017-08-04] MEDS: FLUTICASONE NASAL SPRAY 50 MCG/SPRY 120 SPRAY/16 GM NASL SCH (11:15)
[2017-08-04] MEDS: SODIUM BICARBONATE 650 MG TABLET PO SCH (11:15)
[2017-08-04] MEDS: OXYCODONE HCL IR 5 MG TABLET PO PRN ×2 (11:15→20:04)
[2017-08-04] MEDS: AMITRIPTYLINE HCL 25 MG TABLET PO SCH (11:15)
[2017-08-04] MEDS: NORMAL SALINE 10 ML SDV (SCHEDULED) IV SCH ×2 (13:06→22:02)
[2017-08-04] MEDS: TORSEMIDE 20 MG TABLET PO SCH (13:06)
[2017-08-04] MEDS: ATENOLOL 50 MG TABLET PO SCH (13:33)
--- NOTE | 2017-08-04 14:44 | PDOC PROGRESS REPORT ---
Subjective Progress Note for:: 08/04/17 Subjective:: Complains of pain in his foot. Physical Exam Vital Signs: Temp Pulse Resp BP Pulse Ox 98.4 F 88 17 129/71 H 96 08/04/17 12:07 08/04/17 12:07 08/04/17 12:07 08/04/17 12:07 08/04/17 12:07 Intake & Output 08/03/17 08/04/17 08/05/17 06:59 06:59 06:59 Intake Total 2180 2020 Output Total 800 1200 Balance 1380 820 Weight 128.8 kg 133 kg General appearance: PRESENT: no acute distress Eye exam: PRESENT: conjunctiva pink. ABSENT: scleral icterus Mouth exam: PRESENT: moist, tongue midline Neck exam: ABSENT: JVD Respiratory exam: PRESENT: clear to auscultation vanessa. ABSENT: rales, rhonchi, wheezes Cardiovascular exam: PRESENT: RRR. ABSENT: diastolic murmur, rubs, systolic murmur GI/Abdominal exam: PRESENT: normal bowel sounds, soft. ABSENT: distended, guarding, mass, organolmegaly, rebound, tenderness Extremities exam: PRESENT: pedal edema, other - Left foot has a wound VAC and dressing in place.. ABSENT: calf tenderness, clubbing Neurological exam: PRESENT: alert, awake, oriented to person, oriented to place , oriented to time, oriented to situation, CN II-XII grossly intact. ABSENT: motor sensory deficit Psychiatric exam: PRESENT: appropriate affect Skin exam: PRESENT: other - Dressing in place on the left foot with a wound VAC. Results Laboratory Results: 08/04/17 05:00 08/04/17 05:00 08/04/17 08/04/17 05:00 05:00 WBC 6.2 RBC 2.91 L Hgb 8.0 L Hct 23.7 L MCV 82 MCH 27.3 MCHC 33.5 RDW 14.6 H Plt Count 264 Sodium 136.3 L Potassium 4.9 Chloride 96 L Carbon Dioxide 33 H Anion Gap 7 BUN 32 H Creatinine 2.00 H Est GFR ( Amer) 43 L Est GFR (Non-Af Amer) 36 L Glucose 119 H Calcium 9.2 07/27/17 17:40 Foot - Left Gram Stain - Final 07/27/17 17:40 Foot - Left Wound Culture - Final Staphylococcus Aureus Staphylococcus Xylosus Proteus Vulgaris Enterococcus Faecalis(Group D) No Anaerobic Organisms Impressions: Renal Ultrasound 07/16/17 00:00 IMPRESSION: No hydronephrosis. Chest X-Ray 07/16/17 11:43 IMPRESSION: NO ACUTE RADIOGRAPHIC FINDING IN THE CHEST. Lower Extremity MRI 07/21/17 00:00 IMPRESSION: Probable osteomyelitis involving the distal 5th metatarsal. No focal abscess. There is diffuse soft tissue edema. Guidance Fluoroscopy 07/28/17 00:00 IMPRESSION: SUCCESSFUL PLACEMENT OF A 5 FR DUAL LUMEN 42 CM PICC IN THE LEFT BASILIC VEIN. Interventional Vascular Procedure 07/28/17 00:00 IMPRESSION: SUCCESSFUL PLACEMENT OF A 5 FR DUAL LUMEN 42 CM PICC IN THE LEFT BASILIC VEIN. PICC Line Insertion 07/28/17 00:00 IMPRESSION: SUCCESSFUL PLACEMENT OF A 5 FR DUAL LUMEN 42 CM PICC IN THE LEFT BASILIC VEIN. Assessment & Plan - Diagnosis (1) Sepsis Qualifiers: Sepsis type: sepsis due to unspecified organism Qualified Code(s): A41.9 - Sepsis, unspecified organism Is this a current diagnosis for this admission?: Yes Plan: Secondary to osteomyelitis of the left foot. Status post amputation. Patient is going to require 14 days of IV antibiotics after the amputation. PICC line is in place. (2) Acute respiratory failure with hypoxia Is this a current diagnosis for this admission?: Yes Plan: Secondary to acute COPD exacerbation. This has resolved. (3) Acute kidney injury superimposed on chronic kidney disease Is this a current diagnosis for this admission?: Yes Plan: The patient is euvolemic currently. 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 (5) Hyperkalemia Is this a current diagnosis for this admission?: Yes Plan: Secondary to renal failure. Resolved. (6) Tobacco abuse Is this a current diagnosis for this admission?: Yes Plan: He is encouraged to abstain (7) Bipolar disorder Qualifiers: Active/Remission status: remission status unspecified Qualified Code(s): F31.9 - Bipolar disorder, unspecified Is this a current diagnosis for this admission?: Yes Plan: Continue with Elavil, Zyprexa, Prozac, Xanax. (8) Cocaine abuse Is this a current diagnosis for this admission?: Yes (9) Osteomyelitis of toe of left foot Is this a current diagnosis for this admission?: Yes Plan: Patient is status post amputation of the left fifth toe and metatarsal head. Will continue with the IV daptomycin for a total of 14 days after surgery. - Time Time Spent with patient: 25-34 minutes - Inpatient Certification Medical Necessity: Need Close Monitoring Due to Risk of Patient Decompensation, Need for IV Antibiotics
[2017-08-04] MEDS: ARIPIPRAZOLE 5 MG TABLET PO SCH (17:32)
[2017-08-04] MEDS: LEVOFLOXACIN 750 MG TABLET PO SCH (20:04)
[2017-08-04] MEDS: CYCLOBENZAPRINE HCL 10 MG TABLET PO PRN (20:04)
[2017-08-04] MEDS: SIMVASTATIN 10 MG TABLET PO SCH (22:00)
[2017-08-04] MEDS: ZOLPIDEM TARTRATE 5 MG TABLET PO SCH (22:00)
[2017-08-04] MEDS ORDERED: DAPTOMYCIN INJ 500 MG VIAL IV PRN (23:43)
[2017-08-05] MEDS ORDERED: DAPTOMYCIN IV ONE ×2
[2017-08-05] MEDS ORDERED: NORMAL SALINE IV ONE ×2
[2017-08-05] MEDS ORDERED: DAPTOMYCIN INJ 500 MG VIAL ONE (00:32)
[2017-08-05] MEDS: OXYCODONE HCL IR 5 MG TABLET PO PRN ×2 (00:53→20:18)
[2017-08-05] MEDS: HYDRALAZINE HCL 50 MG TABLET PO SCH ×3 (05:14→21:56)
[2017-08-05 05:45] LABS: MEAN CORPUSCULAR VOLUME 81 fl (80-97); RED CELL DISTRIBUTION WIDTH 14.9 % (11.5-14.0)
[2017-08-05 05:55] LABS: ANION GAP 11 (5-19); BLOOD UREA NITROGEN 30 mg/dL (7-20); CALCIUM 8.7 mg/dL (8.4-10.2); CARBON DIOXIDE 29 mmol/L (22-30); CHLORIDE 97 mmol/L (98-107); CREATININE RESULT 1.96 mg/dL (0.52-1.25); GLUCOSE 110 mg/dL (75-110); POTASSIUM 4.8 mmol/L (3.6-5.0); SODIUM 137.4 mmol/L (137-145)
[2017-08-05 06:10] LABS: HEMATOCRIT 22.5 % (37.9-51.0); HGB HCT DIFFERENCE -0.3; MEAN CORPUSCULAR HEMOGLOBIN 26.9 pg (27.0-33.4); MEAN CORPUSCULAR HGB CONC 33.1 g/dL (32.0-36.0); RED BLOOD COUNT 2.76 10^6/uL (4.35-5.55)
[2017-08-05 06:19] LABS: HEMOGLOBIN 7.4 g/dL (13.5-17.0)
[2017-08-05 06:23] LABS: BASOPHILS % (MANUAL) 0 % (0-2); EOSINOPHILS % (MANUAL) 9 % (0-6); LYMPHOCYTES % (MANUAL) 37 % (13-45); TOTAL CELLS COUNTED 100
[2017-08-05 06:28] LABS: ANISOCYTOSIS SLIGHT; POIKILOCYTOSIS SLIGHT
[2017-08-05 06:29] LABS: HYPOCHROMASIA SLIGHT; OVALOCYTES SLIGHT; ROULEAUX SLIGHT
[2017-08-05] MEDS ORDERED: NORMAL SALINE 250 ML IV PRN ×2 (07:17)
[2017-08-05] MEDS ORDERED: FUROSEMIDE INJ/PF 40 MG/4 ML SDV IV PRN (07:17)
[2017-08-05] MEDS: AMITRIPTYLINE HCL 25 MG TABLET PO SCH (10:11)
[2017-08-05] MEDS: FLUTICASONE NASAL SPRAY 50 MCG/SPRY 120 SPRAY/16 GM NASL SCH (10:11)
[2017-08-05] MEDS: CLONIDINE HCL 0.1 MG TABLET PO SCH ×2 (10:11→21:56)
[2017-08-05] MEDS: SODIUM BICARBONATE 650 MG TABLET PO SCH (10:11)
[2017-08-05] MEDS: LACTOBACILLUS ACIDOPHILUS 250 MG TAB PO SCH ×2 (10:11→18:04)
[2017-08-05] MEDS: FLUOXETINE HCL 20 MG CAPSULE PO SCH (10:11)
[2017-08-05] MEDS: INSULIN LISPRO 100 UNIT/ML 3 ML VIAL SUBCUT SCH ×3 (10:12→16:36)
[2017-08-05] MEDS: INSULIN GLARGINE,HUM.REC.ANLOG 1,000 UNIT/10 ML UNIT SUBCUT SCH ×2 (10:12→18:04)
[2017-08-05] MEDS: ENOXAPARIN SODIUM INJ 40 MG/0.4 ML DISP.SYRIN SUBCUT SCH (10:12)
[2017-08-05] MEDS: GABAPENTIN 400 MG CAPSULE PO SCH ×2 (10:12→21:55)
[2017-08-05] MEDS: TORSEMIDE 20 MG TABLET PO SCH (10:13)
[2017-08-05] MEDS: ATENOLOL 50 MG TABLET PO SCH (10:13)
[2017-08-05] MEDS: NORMAL SALINE 10 ML SDV (SCHEDULED) IV SCH ×2 (10:14→21:56)
--- NOTE | 2017-08-05 10:33 | PDOC PROGRESS REPORT ---
Subjective Progress Note for:: 08/05/17 Subjective:: Complains of pain in his foot. Physical Exam Vital Signs: Temp Pulse Resp BP Pulse Ox 98.4 F 88 18 145/90 H 99 08/05/17 08:20 08/05/17 08:20 08/05/17 08:20 08/05/17 08:20 08/05/17 08:20 Intake & Output 08/04/17 08/05/17 08/06/17 06:59 06:59 06:59 Intake Total 2020 2240 Output Total 1200 400 Balance 820 1840 Weight 133 kg 128.9 kg General appearance: PRESENT: no acute distress Eye exam: PRESENT: conjunctiva pink. ABSENT: scleral icterus Mouth exam: PRESENT: moist, tongue midline Neck exam: ABSENT: JVD Respiratory exam: PRESENT: clear to auscultation vanessa. ABSENT: rales, rhonchi, wheezes Cardiovascular exam: PRESENT: RRR. ABSENT: diastolic murmur, rubs, systolic murmur GI/Abdominal exam: PRESENT: normal bowel sounds, soft. ABSENT: distended, guarding, mass, organolmegaly, rebound, tenderness Extremities exam: PRESENT: pedal edema, other - Dressing in place on the left foot.. ABSENT: calf tenderness, clubbing Neurological exam: PRESENT: alert, awake, oriented to person, oriented to place , oriented to time, oriented to situation, CN II-XII grossly intact. ABSENT: motor sensory deficit Psychiatric exam: PRESENT: appropriate affect Skin exam: PRESENT: other - Wound VAC in place on the left foot. Results Laboratory Results: 08/05/17 05:30 08/05/17 05:30 08/05/17 08/05/17 08/05/17 05:30 05:30 07:40 WBC 5.0 RBC 2.76 L Hgb 7.4 L Hct 22.5 L MCV 81 MCH 26.9 L MCHC 33.1 RDW 14.9 H Plt Count 251 Seg Neutrophils % Not Reportable Lymphocytes % Not Reportable Monocytes % Not Reportable Eosinophils % Not Reportable Basophils % Not Reportable Absolute Neutrophils Not Reportable Absolute Lymphocytes Not Reportable Absolute Monocytes Not Reportable Absolute Eosinophils Not Reportable Absolute Basophils Not Reportable Sodium 137.4 Potassium 4.8 Chloride 97 L Carbon Dioxide 29 Anion Gap 11 BUN 30 H Creatinine 1.96 H Est GFR ( Amer) 44 L Est GFR (Non-Af Amer) 37 L Glucose 110 Calcium 8.7 Blood Type O POSITIVE Antibody Screen NEGATIVE Impressions: Renal Ultrasound 07/16/17 00:00 IMPRESSION: No hydronephrosis. Chest X-Ray 07/16/17 11:43 IMPRESSION: NO ACUTE RADIOGRAPHIC FINDING IN THE CHEST. Lower Extremity MRI 07/21/17 00:00 IMPRESSION: Probable osteomyelitis involving the distal 5th metatarsal. No focal abscess. There is diffuse soft tissue edema. Guidance Fluoroscopy 07/28/17 00:00 IMPRESSION: SUCCESSFUL PLACEMENT OF A 5 FR DUAL LUMEN 42 CM PICC IN THE LEFT BASILIC VEIN. Interventional Vascular Procedure 07/28/17 00:00 IMPRESSION: SUCCESSFUL PLACEMENT OF A 5 FR DUAL LUMEN 42 CM PICC IN THE LEFT BASILIC VEIN. PICC Line Insertion 07/28/17 00:00 IMPRESSION: SUCCESSFUL PLACEMENT OF A 5 FR DUAL LUMEN 42 CM PICC IN THE LEFT BASILIC VEIN. Assessment & Plan - Diagnosis (1) Sepsis Qualifiers: Sepsis type: sepsis due to unspecified organism Qualified Code(s): A41.9 - Sepsis, unspecified organism Is this a current diagnosis for this admission?: Yes Plan: Secondary to osteomyelitis of the left foot. Status post amputation. Patient is going to require 14 days of IV antibiotics after the amputation. PICC line is in place. (2) Acute respiratory failure with hypoxia Is this a current diagnosis for this admission?: Yes Plan: Secondary to acute COPD exacerbation. This has resolved. (3) Acute kidney injury superimposed on chronic kidney disease Is this a current diagnosis for this admission?: Yes Plan: The patient is euvolemic currently. 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 (5) Hyperkalemia Is this a current diagnosis for this admission?: Yes Plan: Secondary to renal failure. Resolved. (6) Tobacco abuse Is this a current diagnosis for this admission?: Yes Plan: He is encouraged to abstain (7) Bipolar disorder Qualifiers: Active/Remission status: remission status unspecified Qualified Code(s): F31.9 - Bipolar disorder, unspecified Is this a current diagnosis for this admission?: Yes Plan: Continue with Elavil, Zyprexa, Prozac, Xanax. (8) Cocaine abuse Is this a current diagnosis for this admission?: Yes (9) Osteomyelitis of toe of left foot Is this a current diagnosis for this admission?: Yes Plan: Patient is status post amputation of the left fifth toe and metatarsal head. Will continue with the IV daptomycin for a total of 14 days after surgery. - Time Time Spent with patient: 25-34 minutes - Inpatient Certification Medical Necessity: Need Close Monitoring Due to Risk of Patient Decompensation, Need for IV Antibiotics
[2017-08-05] MEDS: ARIPIPRAZOLE 5 MG TABLET PO SCH (18:04)
[2017-08-05] MEDS: LEVOFLOXACIN 750 MG TABLET PO SCH (20:18)
[2017-08-05] MEDS: DAPTOMYCIN IV SCH (21:55)
[2017-08-05] MEDS: NORMAL SALINE IV SCH (21:55)
[2017-08-05] MEDS: ZOLPIDEM TARTRATE 5 MG TABLET PO SCH (21:56)
[2017-08-05] MEDS: NORMAL SALINE 10 ML SDV (AFTER EACH USE) IV PRN (21:56)
[2017-08-05] MEDS: SIMVASTATIN 10 MG TABLET PO SCH (21:56)
[2017-08-05 22:16] LABS: HEMATOCRIT 25.7 % (37.9-51.0); HEMOGLOBIN 8.5 g/dL (13.5-17.0); HGB HCT DIFFERENCE -0.2; MEAN CORPUSCULAR HEMOGLOBIN 27.1 pg (27.0-33.4); MEAN CORPUSCULAR HGB CONC 33.2 g/dL (32.0-36.0); MEAN CORPUSCULAR VOLUME 81 fl (80-97); RED BLOOD COUNT 3.16 10^6/uL (4.35-5.55); RED CELL DISTRIBUTION WIDTH 15.1 % (11.5-14.0)
[2017-08-06] MEDS: OXYCODONE HCL IR 5 MG TABLET PO PRN ×4 (02:10→17:22)
[2017-08-06] MEDS: HYDRALAZINE HCL 50 MG TABLET PO SCH ×3 (05:42→22:23)
[2017-08-06 05:57] LABS: ABSOLUTE BASOPHILS # (AUTO) 0.1 10^3/uL (0.0-0.2); ABSOLUTE EOSINOPHILS # (AUTO) 0.2 10^3/uL (0.0-0.6); ABSOLUTE NEUT (AUTO) 2.9 10^3/uL (1.7-8.2); BASOPHILS % (AUTO) 1.4 % (0-2); EOSINOPHILS % (AUTO) 4.6 % (0-6); HEMATOCRIT 28.6 % (37.9-51.0); HEMOGLOBIN 9.7 g/dL (13.5-17.0); HGB HCT DIFFERENCE 0.5; LYMPHOCYTES % (AUTO) 20.1 % (13-45); MEAN CORPUSCULAR HEMOGLOBIN 27.6 pg (27.0-33.4); MEAN CORPUSCULAR HGB CONC 33.9 g/dL (32.0-36.0); MEAN CORPUSCULAR VOLUME 81 fl (80-97); MONOCYTES % (AUTO) 18.4 % (3-13); RED BLOOD COUNT 3.51 10^6/uL (4.35-5.55); SEGMENTED NEUTROPHILS % (AUTO) 55.5 % (42-78); WHITE BLOOD COUNT 5.2 10^3/uL (4.0-10.5)
[2017-08-06 06:18] LABS: ANION GAP 11 (5-19); BLOOD UREA NITROGEN 38 mg/dL (7-20); CALCIUM 9.6 mg/dL (8.4-10.2); CARBON DIOXIDE 31 mmol/L (22-30); CHLORIDE 95 mmol/L (98-107); CREATININE RESULT 2.51 mg/dL (0.52-1.25); GLUCOSE 160 mg/dL (75-110); POTASSIUM 5.3 mmol/L (3.6-5.0); SODIUM 136.8 mmol/L (137-145)
[2017-08-06] MEDS: INSULIN LISPRO 100 UNIT/ML 3 ML VIAL SUBCUT SCH ×3 (09:34→17:24)
[2017-08-06] MEDS: INSULIN LISPRO 100 UNIT/ML 3 ML VIAL SUBCUT PRN (09:35)
[2017-08-06] MEDS: CLONIDINE HCL 0.1 MG TABLET PO SCH ×2 (09:37→22:23)
[2017-08-06] MEDS: AMITRIPTYLINE HCL 25 MG TABLET PO SCH (09:37)
[2017-08-06] MEDS: GABAPENTIN 400 MG CAPSULE PO SCH ×2 (09:38→22:24)
[2017-08-06] MEDS: FLUOXETINE HCL 20 MG CAPSULE PO SCH (09:38)
[2017-08-06] MEDS: ENOXAPARIN SODIUM INJ 40 MG/0.4 ML DISP.SYRIN SUBCUT SCH (09:51)
[2017-08-06] MEDS: FLUTICASONE NASAL SPRAY 50 MCG/SPRY 120 SPRAY/16 GM NASL SCH (09:53)
[2017-08-06] MEDS: ATENOLOL 50 MG TABLET PO SCH (09:53)
[2017-08-06] MEDS: TORSEMIDE 20 MG TABLET PO SCH (09:54)
[2017-08-06] MEDS: SODIUM BICARBONATE 650 MG TABLET PO SCH (09:57)
[2017-08-06] MEDS: LACTOBACILLUS ACIDOPHILUS 250 MG TAB PO SCH ×2 (10:00→17:23)
[2017-08-06] MEDS: INSULIN GLARGINE,HUM.REC.ANLOG 1,000 UNIT/10 ML UNIT SUBCUT SCH ×2 (10:01→17:24)
[2017-08-06] MEDS: NORMAL SALINE 10 ML SDV (AFTER EACH USE) IV PRN (10:02)
[2017-08-06] MEDS: NORMAL SALINE 10 ML SDV (SCHEDULED) IV SCH ×2 (10:03→22:25)
--- NOTE | 2017-08-06 12:16 | PDOC PROGRESS REPORT ---
Subjective Progress Note for:: 08/06/17 Subjective:: Complains of pain in his foot. Physical Exam Vital Signs: Temp Pulse Resp BP Pulse Ox 97.5 F 80 17 107/58 L 100 08/06/17 11:53 08/06/17 11:53 08/06/17 11:53 08/06/17 11:53 08/06/17 11:53 Intake & Output 08/05/17 08/06/17 08/07/17 06:59 06:59 06:59 Intake Total 2240 2880 Output Total 400 2660 Balance 1840 220 Weight 128.9 kg 128.2 kg General appearance: PRESENT: no acute distress Eye exam: PRESENT: conjunctiva pink. ABSENT: scleral icterus Mouth exam: PRESENT: moist, tongue midline Neck exam: ABSENT: JVD Respiratory exam: PRESENT: clear to auscultation vanessa. ABSENT: rales, rhonchi, wheezes Cardiovascular exam: PRESENT: RRR. ABSENT: diastolic murmur, rubs, systolic murmur GI/Abdominal exam: PRESENT: normal bowel sounds, soft. ABSENT: distended, guarding, mass, organolmegaly, rebound, tenderness Extremities exam: PRESENT: pedal edema, other - Wound VAC in place on the left foot.. ABSENT: calf tenderness, clubbing Neurological exam: PRESENT: alert, awake, oriented to person, oriented to place , oriented to time, oriented to situation, CN II-XII grossly intact. ABSENT: motor sensory deficit Psychiatric exam: PRESENT: appropriate affect Skin exam: PRESENT: other - Wound VAC in place on the left foot. Results Laboratory Results: 08/06/17 05:40 08/06/17 05:40 08/05/17 08/05/17 08/06/17 07:40 21:50 05:40 WBC 6.0 5.2 RBC 3.16 L 3.51 L Hgb 8.5 L 9.7 L Hct 25.7 L 28.6 L MCV 81 81 MCH 27.1 27.6 MCHC 33.2 33.9 RDW 15.1 H 15.0 H Plt Count 242 280 Seg Neutrophils % 55.5 Lymphocytes % 20.1 Monocytes % 18.4 H Eosinophils % 4.6 Basophils % 1.4 Absolute Neutrophils 2.9 Absolute Lymphocytes 1.0 Absolute Monocytes 1.0 Absolute Eosinophils 0.2 Absolute Basophils 0.1 Sodium Potassium Chloride Carbon Dioxide Anion Gap BUN Creatinine Est GFR ( Amer) Est GFR (Non-Af Amer) Glucose Calcium Blood Type O POSITIVE Antibody Screen NEGATIVE 08/06/17 05:40 WBC RBC Hgb Hct MCV MCH MCHC RDW Plt Count Seg Neutrophils % Lymphocytes % Monocytes % Eosinophils % Basophils % Absolute Neutrophils Absolute Lymphocytes Absolute Monocytes Absolute Eosinophils Absolute Basophils Sodium 136.8 L Potassium 5.3 H Chloride 95 L Carbon Dioxide 31 H Anion Gap 11 BUN 38 H Creatinine 2.51 H Est GFR ( Amer) 33 L Est GFR (Non-Af Amer) 28 L Glucose 160 H Calcium 9.6 Blood Type Antibody Screen Impressions: Renal Ultrasound 07/16/17 00:00 IMPRESSION: No hydronephrosis. Chest X-Ray 07/16/17 11:43 IMPRESSION: NO ACUTE RADIOGRAPHIC FINDING IN THE CHEST. Lower Extremity MRI 07/21/17 00:00 IMPRESSION: Probable osteomyelitis involving the distal 5th metatarsal. No focal abscess. There is diffuse soft tissue edema. Guidance Fluoroscopy 07/28/17 00:00 IMPRESSION: SUCCESSFUL PLACEMENT OF A 5 FR DUAL LUMEN 42 CM PICC IN THE LEFT BASILIC VEIN. Interventional Vascular Procedure 07/28/17 00:00 IMPRESSION: SUCCESSFUL PLACEMENT OF A 5 FR DUAL LUMEN 42 CM PICC IN THE LEFT BASILIC VEIN. PICC Line Insertion 07/28/17 00:00 IMPRESSION: SUCCESSFUL PLACEMENT OF A 5 FR DUAL LUMEN 42 CM PICC IN THE LEFT BASILIC VEIN. Assessment & Plan - Diagnosis (1) Sepsis Qualifiers: Sepsis type: sepsis due to unspecified organism Qualified Code(s): A41.9 - Sepsis, unspecified organism Is this a current diagnosis for this admission?: Yes Plan: Secondary to osteomyelitis of the left foot. Status post amputation. Patient is going to require 14 days of IV antibiotics after the amputation. PICC line is in place. (2) Acute respiratory failure with hypoxia Is this a current diagnosis for this admission?: Yes Plan: Secondary to acute COPD exacerbation. This has resolved. (3) Acute kidney injury superimposed on chronic kidney disease Is this a current diagnosis for this admission?: Yes Plan: The patient is euvolemic currently. 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 (5) Hyperkalemia Is this a current diagnosis for this admission?: Yes Plan: Secondary to renal failure. Potassium is up slightly today. We will continue to monitor closely. (6) Tobacco abuse Is this a current diagnosis for this admission?: Yes Plan: He is encouraged to abstain (7) Bipolar disorder Qualifiers: Active/Remission status: remission status unspecified Qualified Code(s): F31.9 - Bipolar disorder, unspecified Is this a current diagnosis for this admission?: Yes Plan: Continue with Elavil, Zyprexa, Prozac, Xanax. (8) Cocaine abuse Is this a current diagnosis for this admission?: Yes (9) Osteomyelitis of toe of left foot Is this a current diagnosis for this admission?: Yes Plan: Patient is status post amputation of the left fifth toe and metatarsal head. Will continue with the IV daptomycin for a total of 14 days after surgery. (10) Anemia of chronic disease Is this a current diagnosis for this admission?: Yes - Time Time Spent with patient: 25-34 minutes - Inpatient Certification Medical Necessity: Need for IV Antibiotics
[2017-08-06] MEDS: ARIPIPRAZOLE 5 MG TABLET PO SCH (17:21)
[2017-08-06] MEDS: SIMVASTATIN 10 MG TABLET PO SCH (22:24)
[2017-08-06] MEDS: DAPTOMYCIN IV SCH (22:24)
[2017-08-06] MEDS: NORMAL SALINE IV SCH (22:24)
[2017-08-06] MEDS: ZOLPIDEM TARTRATE 5 MG TABLET PO SCH (23:46)
[2017-08-07] MEDS: HYDRALAZINE HCL 50 MG TABLET PO SCH ×3 (05:52→21:19)
[2017-08-07] MEDS: NORMAL SALINE 10 ML SDV (AFTER EACH USE) IV PRN ×3 (05:52→22:05)
[2017-08-07 07:23] LABS: HEMATOCRIT 26.2 % (37.9-51.0); HEMOGLOBIN 8.8 g/dL (13.5-17.0); HGB HCT DIFFERENCE 0.2; MEAN CORPUSCULAR HEMOGLOBIN 27.1 pg (27.0-33.4); MEAN CORPUSCULAR HGB CONC 33.6 g/dL (32.0-36.0); MEAN CORPUSCULAR VOLUME 81 fl (80-97); RED BLOOD COUNT 3.25 10^6/uL (4.35-5.55); RED CELL DISTRIBUTION WIDTH 14.8 % (11.5-14.0); WHITE BLOOD COUNT 5.5 10^3/uL (4.0-10.5)
[2017-08-07 07:38] LABS: ANION GAP 12 (5-19); BLOOD UREA NITROGEN 41 mg/dL (7-20); CALCIUM 9.4 mg/dL (8.4-10.2); CARBON DIOXIDE 29 mmol/L (22-30); CHLORIDE 93 mmol/L (98-107); CREATININE RESULT 2.61 mg/dL (0.52-1.25); GLUCOSE 192 mg/dL (75-110); SODIUM 134.2 mmol/L (137-145)
[2017-08-07 07:52] LABS: BASOPHILS % (MANUAL) 0 % (0-2); EOSINOPHILS % (MANUAL) 1 % (0-6); LYMPHOCYTES % (MANUAL) 22 % (13-45); TOTAL CELLS COUNTED 100
[2017-08-07 07:56] LABS: ANISOCYTOSIS SLIGHT; HYPOCHROMASIA SLIGHT
[2017-08-07] MEDS: INSULIN LISPRO 100 UNIT/ML 3 ML VIAL SUBCUT PRN (08:47)
[2017-08-07] MEDS: INSULIN LISPRO 100 UNIT/ML 3 ML VIAL SUBCUT SCH ×3 (08:47→17:40)
[2017-08-07] MEDS: MORPHINE SULFATE 10 MG/ML INJ IV PRN ×3 (09:08→21:19)
[2017-08-07] MEDS: INSULIN GLARGINE,HUM.REC.ANLOG 1,000 UNIT/10 ML UNIT SUBCUT SCH ×2 (09:11→17:39)
[2017-08-07] MEDS: GABAPENTIN 400 MG CAPSULE PO SCH ×2 (09:14→21:19)
[2017-08-07] MEDS: FLUOXETINE HCL 20 MG CAPSULE PO SCH (09:14)
[2017-08-07] MEDS: AMITRIPTYLINE HCL 25 MG TABLET PO SCH (09:15)
[2017-08-07] MEDS: CLONIDINE HCL 0.1 MG TABLET PO SCH ×2 (09:15→21:19)
[2017-08-07] MEDS: SODIUM BICARBONATE 650 MG TABLET PO SCH (09:15)
[2017-08-07] MEDS: ENOXAPARIN SODIUM INJ 40 MG/0.4 ML DISP.SYRIN SUBCUT SCH (09:19)
[2017-08-07] MEDS: TORSEMIDE 20 MG TABLET PO SCH (09:26)
[2017-08-07] MEDS: ATENOLOL 50 MG TABLET PO SCH (09:28)
[2017-08-07] MEDS: NORMAL SALINE 10 ML SDV (SCHEDULED) IV SCH ×2 (09:30→21:19)
[2017-08-07] MEDS: LACTOBACILLUS ACIDOPHILUS 250 MG TAB PO SCH ×2 (09:30→17:40)
--- NOTE | 2017-08-07 10:15 | PDOC PROGRESS REPORT ---
Subjective Progress Note for:: 08/07/17 Subjective:: Complains of pain in his foot. Physical Exam Vital Signs: Temp Pulse Resp BP Pulse Ox 98.7 F 90 16 127/81 H 96 08/07/17 07:26 08/07/17 07:26 08/07/17 07:26 08/07/17 07:26 08/07/17 07:26 Intake & Output 08/06/17 08/07/17 08/08/17 06:59 06:59 06:59 Intake Total 2880 1780 Output Total 2660 2825 Balance 220 -1045 Weight 128.2 kg 130.4 kg General appearance: PRESENT: no acute distress Eye exam: PRESENT: conjunctiva pink. ABSENT: scleral icterus Mouth exam: PRESENT: moist, tongue midline Neck exam: ABSENT: JVD Respiratory exam: PRESENT: clear to auscultation vanessa. ABSENT: rales, rhonchi, wheezes Cardiovascular exam: PRESENT: RRR. ABSENT: diastolic murmur, rubs, systolic murmur GI/Abdominal exam: PRESENT: normal bowel sounds, soft. ABSENT: distended, guarding, mass, organolmegaly, rebound, tenderness Extremities exam: PRESENT: pedal edema, other - Wound VAC in place on the left foot.. ABSENT: calf tenderness, clubbing Neurological exam: PRESENT: alert, awake, oriented to person, oriented to place , oriented to time, oriented to situation, CN II-XII grossly intact. ABSENT: motor sensory deficit Psychiatric exam: PRESENT: appropriate affect Skin exam: PRESENT: other - Wound VAC in place on the left foot Results Laboratory Results: 08/07/17 05:57 08/07/17 05:57 08/07/17 08/07/17 05:57 05:57 WBC 5.5 RBC 3.25 L Hgb 8.8 L Hct 26.2 L MCV 81 MCH 27.1 MCHC 33.6 RDW 14.8 H Plt Count 252 Seg Neutrophils % Not Reportable Lymphocytes % Not Reportable Monocytes % Not Reportable Eosinophils % Not Reportable Basophils % Not Reportable Absolute Neutrophils Not Reportable Absolute Lymphocytes Not Reportable Absolute Monocytes Not Reportable Absolute Eosinophils Not Reportable Absolute Basophils Not Reportable Sodium 134.2 L Potassium 5.0 Chloride 93 L Carbon Dioxide 29 Anion Gap 12 BUN 41 H Creatinine 2.61 H Est GFR ( Amer) 32 L Est GFR (Non-Af Amer) 26 L Glucose 192 H Calcium 9.4 Impressions: Renal Ultrasound 07/16/17 00:00 IMPRESSION: No hydronephrosis. Chest X-Ray 07/16/17 11:43 IMPRESSION: NO ACUTE RADIOGRAPHIC FINDING IN THE CHEST. Lower Extremity MRI 07/21/17 00:00 IMPRESSION: Probable osteomyelitis involving the distal 5th metatarsal. No focal abscess. There is diffuse soft tissue edema. Guidance Fluoroscopy 07/28/17 00:00 IMPRESSION: SUCCESSFUL PLACEMENT OF A 5 FR DUAL LUMEN 42 CM PICC IN THE LEFT BASILIC VEIN. Interventional Vascular Procedure 07/28/17 00:00 IMPRESSION: SUCCESSFUL PLACEMENT OF A 5 FR DUAL LUMEN 42 CM PICC IN THE LEFT BASILIC VEIN. PICC Line Insertion 07/28/17 00:00 IMPRESSION: SUCCESSFUL PLACEMENT OF A 5 FR DUAL LUMEN 42 CM PICC IN THE LEFT BASILIC VEIN. Assessment & Plan - Diagnosis (1) Sepsis Qualifiers: Sepsis type: sepsis due to unspecified organism Qualified Code(s): A41.9 - Sepsis, unspecified organism Is this a current diagnosis for this admission?: Yes Plan: Secondary to osteomyelitis of the left foot. Status post amputation. Patient is going to require 14 days of IV antibiotics after the amputation. The patient 's last day of antibiotics will be August 11. PICC line is in place. (2) Acute respiratory failure with hypoxia Is this a current diagnosis for this admission?: Yes Plan: Secondary to acute COPD exacerbation. This has resolved. (3) Acute kidney injury superimposed on chronic kidney disease Is this a current diagnosis for this admission?: Yes Plan: The patient is euvolemic currently. 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 (5) Hyperkalemia Is this a current diagnosis for this admission?: Yes Plan: Secondary to renal failure. Potassium is normal today. We will continue to monitor closely. (6) Tobacco abuse Is this a current diagnosis for this admission?: Yes (7) Bipolar disorder Qualifiers: Active/Remission status: remission status unspecified Qualified Code(s): F31.9 - Bipolar disorder, unspecified Is this a current diagnosis for this admission?: Yes Plan: Continue with Elavil, Zyprexa, Prozac, Xanax. (8) Cocaine abuse Is this a current diagnosis for this admission?: Yes (9) Osteomyelitis of toe of left foot Is this a current diagnosis for this admission?: Yes Plan: Patient is status post amputation of the left fifth toe and metatarsal head. Will continue with the IV daptomycin for a total of 14 days after surgery. (10) Anemia of chronic disease Is this a current diagnosis for this admission?: Yes - Time Time Spent with patient: 25-34 minutes - Inpatient Certification Medical Necessity: Need for IV Antibiotics
[2017-08-07] MEDS: FLUTICASONE NASAL SPRAY 50 MCG/SPRY 120 SPRAY/16 GM NASL SCH (13:26)
[2017-08-07] MEDS: ARIPIPRAZOLE 5 MG TABLET PO SCH (17:40)
[2017-08-07] MEDS: OXYCODONE HCL IR 5 MG TABLET PO PRN ×2 (17:41→22:06)
[2017-08-07] MEDS: SIMVASTATIN 10 MG TABLET PO SCH (21:18)
[2017-08-07] MEDS: DAPTOMYCIN IV SCH (21:19)
[2017-08-07] MEDS: NORMAL SALINE IV SCH (21:19)
[2017-08-07] MEDS: ZOLPIDEM TARTRATE 5 MG TABLET PO SCH (22:05)
[2017-08-08] MEDS: HYDRALAZINE HCL 50 MG TABLET PO SCH ×3 (05:09→21:58)
[2017-08-08] MEDS: MORPHINE SULFATE 10 MG/ML INJ IV PRN ×4 (05:10→21:58)
[2017-08-08] MEDS: NORMAL SALINE 10 ML SDV (AFTER EACH USE) IV PRN ×2 (05:10→09:15)
[2017-08-08 05:38] LABS: HEMATOCRIT 26.4 % (37.9-51.0); HEMOGLOBIN 8.9 g/dL (13.5-17.0); HGB HCT DIFFERENCE 0.3; MEAN CORPUSCULAR HEMOGLOBIN 27.2 pg (27.0-33.4); MEAN CORPUSCULAR HGB CONC 33.6 g/dL (32.0-36.0); MEAN CORPUSCULAR VOLUME 81 fl (80-97); RED BLOOD COUNT 3.26 10^6/uL (4.35-5.55); RED CELL DISTRIBUTION WIDTH 14.9 % (11.5-14.0); WHITE BLOOD COUNT 4.6 10^3/uL (4.0-10.5)
[2017-08-08 05:54] LABS: ANION GAP 10 (5-19); BLOOD UREA NITROGEN 37 mg/dL (7-20); CALCIUM 9.6 mg/dL (8.4-10.2); CARBON DIOXIDE 30 mmol/L (22-30); CHLORIDE 97 mmol/L (98-107); CREATININE RESULT 2.35 mg/dL (0.52-1.25); GLUCOSE 122 mg/dL (75-110); POTASSIUM 4.6 mmol/L (3.6-5.0)
[2017-08-08 06:00] LABS: ANISOCYTOSIS SLIGHT; BAND NEUTROPHILS % (MANUAL) 2 % (3-5); BASOPHILS % (MANUAL) 1 % (0-2); EOSINOPHILS % (MANUAL) 2 % (0-6); LYMPHOCYTES % (MANUAL) 20 % (13-45); TOTAL CELLS COUNTED 100
[2017-08-08 06:01] LABS: PLATELET CLUMPS PRESENT
[2017-08-08 06:02] LABS: MICROCYTOSIS SLIGHT; OVALOCYTES SLIGHT; POIKILOCYTOSIS SLIGHT; POLYCHROMASIA SLIGHT
[2017-08-08 06:03] LABS: HYPOCHROMASIA SLIGHT; TARGET CELLS SLIGHT; TEAR DROP CELLS SLIGHT
[2017-08-08] MEDS: OXYCODONE HCL IR 5 MG TABLET PO PRN ×3 (06:28→18:06)
[2017-08-08] MEDS ORDERED: FUROSEMIDE INJ/PF 40 MG/4 ML SDV IV ONE (08:25)
[2017-08-08] MEDS: INSULIN LISPRO 100 UNIT/ML 3 ML VIAL SUBCUT SCH ×3 (08:33→17:40)
[2017-08-08] MEDS: FLUOXETINE HCL 20 MG CAPSULE PO SCH (09:13)
[2017-08-08] MEDS: CLONIDINE HCL 0.1 MG TABLET PO SCH ×2 (09:13→21:58)
[2017-08-08] MEDS: LACTOBACILLUS ACIDOPHILUS 250 MG TAB PO SCH ×2 (09:13→17:40)
[2017-08-08] MEDS: SODIUM BICARBONATE 650 MG TABLET PO SCH (09:13)
[2017-08-08] MEDS: GABAPENTIN 400 MG CAPSULE PO SCH ×2 (09:14→21:58)
[2017-08-08] MEDS: AMITRIPTYLINE HCL 25 MG TABLET PO SCH (09:14)
[2017-08-08] MEDS: NORMAL SALINE 10 ML SDV (SCHEDULED) IV SCH ×2 (09:15→21:58)
[2017-08-08] MEDS: ENOXAPARIN SODIUM INJ 40 MG/0.4 ML DISP.SYRIN SUBCUT SCH (09:15)
[2017-08-08] MEDS: INSULIN GLARGINE,HUM.REC.ANLOG 1,000 UNIT/10 ML UNIT SUBCUT SCH ×2 (09:16→17:39)
[2017-08-08] MEDS: ATENOLOL 50 MG TABLET PO SCH (09:18)
[2017-08-08] MEDS: FLUTICASONE NASAL SPRAY 50 MCG/SPRY 120 SPRAY/16 GM NASL SCH (09:19)
[2017-08-08] MEDS: TORSEMIDE 20 MG TABLET PO SCH (09:19)
--- NOTE | 2017-08-08 11:42 | PDOC PROGRESS REPORT ---
Subjective Progress Note for:: 08/08/17 Subjective:: Complaints of lower extremity edema Physical Exam Vital Signs: Temp Pulse Resp BP Pulse Ox 97.6 F 85 20 117/66 96 08/08/17 07:44 08/08/17 07:44 08/08/17 07:44 08/08/17 07:44 08/08/17 07:44 Intake & Output 08/07/17 08/08/17 08/09/17 06:59 06:59 06:59 Intake Total 1780 1372 Output Total 8330 0915 Balance -1045 -883 Weight 130.4 kg 130.4 kg General appearance: PRESENT: no acute distress Eye exam: PRESENT: conjunctiva pink. ABSENT: scleral icterus Mouth exam: PRESENT: moist, tongue midline Neck exam: ABSENT: JVD Respiratory exam: PRESENT: clear to auscultation vanessa. ABSENT: rales, rhonchi, wheezes Cardiovascular exam: PRESENT: RRR. ABSENT: diastolic murmur, rubs, systolic murmur GI/Abdominal exam: PRESENT: normal bowel sounds, soft. ABSENT: distended, guarding, mass, organolmegaly, rebound, tenderness Extremities exam: PRESENT: pedal edema, +1 edema. ABSENT: calf tenderness, clubbing Neurological exam: PRESENT: alert, awake, oriented to person, oriented to place , oriented to time, oriented to situation, CN II-XII grossly intact. ABSENT: motor sensory deficit Psychiatric exam: PRESENT: appropriate affect Skin exam: PRESENT: dry, intact, warm, other - Wound VAC in place on the left foot. ABSENT: cyanosis, rash Results Laboratory Results: 08/08/17 05:05 08/08/17 05:05 08/08/17 08/08/17 05:05 05:05 WBC 4.6 RBC 3.26 L Hgb 8.9 L Hct 26.4 L MCV 81 MCH 27.2 MCHC 33.6 RDW 14.9 H Plt Count 245 Seg Neutrophils % Not Reportable Lymphocytes % Not Reportable Monocytes % Not Reportable Eosinophils % Not Reportable Basophils % Not Reportable Absolute Neutrophils Not Reportable Absolute Lymphocytes Not Reportable Absolute Monocytes Not Reportable Absolute Eosinophils Not Reportable Absolute Basophils Not Reportable Sodium 137.0 Potassium 4.6 Chloride 97 L Carbon Dioxide 30 Anion Gap 10 BUN 37 H Creatinine 2.35 H Est GFR ( Amer) 36 L Est GFR (Non-Af Amer) 30 L Glucose 122 H Calcium 9.6 Impressions: Renal Ultrasound 07/16/17 00:00 IMPRESSION: No hydronephrosis. Chest X-Ray 07/16/17 11:43 IMPRESSION: NO ACUTE RADIOGRAPHIC FINDING IN THE CHEST. Lower Extremity MRI 07/21/17 00:00 IMPRESSION: Probable osteomyelitis involving the distal 5th metatarsal. No focal abscess. There is diffuse soft tissue edema. Guidance Fluoroscopy 07/28/17 00:00 IMPRESSION: SUCCESSFUL PLACEMENT OF A 5 FR DUAL LUMEN 42 CM PICC IN THE LEFT BASILIC VEIN. Interventional Vascular Procedure 07/28/17 00:00 IMPRESSION: SUCCESSFUL PLACEMENT OF A 5 FR DUAL LUMEN 42 CM PICC IN THE LEFT BASILIC VEIN. PICC Line Insertion 07/28/17 00:00 IMPRESSION: SUCCESSFUL PLACEMENT OF A 5 FR DUAL LUMEN 42 CM PICC IN THE LEFT BASILIC VEIN. Assessment & Plan - Diagnosis (1) Sepsis Qualifiers: Sepsis type: sepsis due to unspecified organism Qualified Code(s): A41.9 - Sepsis, unspecified organism Is this a current diagnosis for this admission?: Yes Plan: Secondary to osteomyelitis of the left foot. Status post amputation. Patient is going to require 14 days of IV antibiotics after the amputation. The patient 's last day of antibiotics will be August 11. PICC line is in place. (2) Acute respiratory failure with hypoxia Is this a current diagnosis for this admission?: Yes Plan: Secondary to acute COPD exacerbation. This has resolved. (3) Acute kidney injury superimposed on chronic kidney disease Is this a current diagnosis for this admission?: Yes Plan: The patient has some peripheral edema. Will give IV Lasix 1 today. 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 (5) Hyperkalemia Is this a current diagnosis for this admission?: Yes Plan: Secondary to renal failure. Potassium is normal today. We will continue to monitor closely. (6) Tobacco abuse Is this a current diagnosis for this admission?: Yes Plan: He is encouraged to abstain (7) Bipolar disorder Qualifiers: Active/Remission status: remission status unspecified Qualified Code(s): F31.9 - Bipolar disorder, unspecified Is this a current diagnosis for this admission?: Yes Plan: Continue with Elavil, Zyprexa, Prozac, Xanax. (8) Cocaine abuse Is this a current diagnosis for this admission?: Yes (9) Osteomyelitis of toe of left foot Is this a current diagnosis for this admission?: Yes Plan: Patient is status post amputation of the left fifth toe and metatarsal head. Will continue with the IV daptomycin for a total of 14 days after surgery. (10) Anemia of chronic disease Is this a current diagnosis for this admission?: Yes - Time Time Spent with patient: 25-34 minutes - Inpatient Certification Medical Necessity: Need Close Monitoring Due to Risk of Patient Decompensation
[2017-08-08] MEDS: ARIPIPRAZOLE 5 MG TABLET PO SCH (17:40)
[2017-08-08] MEDS: ZOLPIDEM TARTRATE 5 MG TABLET PO SCH (21:58)
[2017-08-08] MEDS: SIMVASTATIN 10 MG TABLET PO SCH (21:58)
[2017-08-08] MEDS: DAPTOMYCIN IV SCH (21:58)
[2017-08-08] MEDS: NORMAL SALINE IV SCH (21:58)
[2017-08-09] MEDS: HYDRALAZINE HCL 50 MG TABLET PO SCH ×3 (06:55→22:30)
[2017-08-09] MEDS: OXYCODONE HCL IR 5 MG TABLET PO PRN ×4 (06:56→22:31)
[2017-08-09] MEDS: INSULIN LISPRO 100 UNIT/ML 3 ML VIAL SUBCUT SCH ×3 (08:04→16:35)
[2017-08-09] MEDS: ENOXAPARIN SODIUM INJ 40 MG/0.4 ML DISP.SYRIN SUBCUT SCH (09:16)
[2017-08-09] MEDS: INSULIN GLARGINE,HUM.REC.ANLOG 1,000 UNIT/10 ML UNIT SUBCUT SCH ×2 (09:17→17:23)
[2017-08-09] MEDS: LACTOBACILLUS ACIDOPHILUS 250 MG TAB PO SCH ×2 (09:17→17:23)
[2017-08-09] MEDS: SODIUM BICARBONATE 650 MG TABLET PO SCH (09:17)
[2017-08-09] MEDS: AMITRIPTYLINE HCL 25 MG TABLET PO SCH (09:18)
[2017-08-09] MEDS: GABAPENTIN 400 MG CAPSULE PO SCH ×2 (09:18→22:30)
[2017-08-09] MEDS: FLUOXETINE HCL 20 MG CAPSULE PO SCH (09:18)
[2017-08-09] MEDS: CLONIDINE HCL 0.1 MG TABLET PO SCH ×2 (09:18→22:30)
[2017-08-09] MEDS: ERGOCALCIFEROL (VITAMIN D2) 50000 UNIT (1.25 MG) CAPSULE PO SCH (09:19)
[2017-08-09] MEDS: MORPHINE SULFATE 10 MG/ML INJ IV PRN (09:19)
[2017-08-09] MEDS: FLUTICASONE NASAL SPRAY 50 MCG/SPRY 120 SPRAY/16 GM NASL SCH (09:20)
[2017-08-09] MEDS: TORSEMIDE 20 MG TABLET PO SCH (09:21)
[2017-08-09] MEDS: ATENOLOL 50 MG TABLET PO SCH (09:21)
[2017-08-09] MEDS: NORMAL SALINE 10 ML SDV (SCHEDULED) IV SCH ×2 (09:22→22:31)
--- NOTE | 2017-08-09 10:20 | PDOC PROGRESS REPORT ---
Subjective Progress Note for:: 08/09/17 Subjective:: Complaints of lower extremity edema Physical Exam Vital Signs: Temp Pulse Resp BP Pulse Ox 99.1 F 84 20 150/95 H 98 08/09/17 07:16 08/09/17 07:16 08/09/17 07:16 08/09/17 07:16 08/09/17 07:16 Intake & Output 08/08/17 08/09/17 08/10/17 06:59 06:59 06:59 Intake Total 1372 1502 Output Total 2255 850 Balance -883 652 Weight 130.4 kg 130.4 kg General appearance: PRESENT: no acute distress Eye exam: PRESENT: conjunctiva pink. ABSENT: scleral icterus Mouth exam: PRESENT: moist, tongue midline Neck exam: ABSENT: JVD Respiratory exam: PRESENT: clear to auscultation vanessa. ABSENT: rales, rhonchi, wheezes Cardiovascular exam: PRESENT: RRR. ABSENT: diastolic murmur, rubs, systolic murmur GI/Abdominal exam: PRESENT: normal bowel sounds, soft. ABSENT: distended, guarding, mass, organolmegaly, rebound, tenderness Extremities exam: PRESENT: pedal edema. ABSENT: calf tenderness, clubbing Neurological exam: PRESENT: alert, awake, oriented to person, oriented to place , oriented to time, oriented to situation, CN II-XII grossly intact. ABSENT: motor sensory deficit Psychiatric exam: PRESENT: appropriate affect Skin exam: PRESENT: other - Wound VAC in place on the left foot. Results Laboratory Results: 08/08/17 05:05 08/08/17 05:05 Impressions: Renal Ultrasound 07/16/17 00:00 IMPRESSION: No hydronephrosis. Chest X-Ray 07/16/17 11:43 IMPRESSION: NO ACUTE RADIOGRAPHIC FINDING IN THE CHEST. Lower Extremity MRI 07/21/17 00:00 IMPRESSION: Probable osteomyelitis involving the distal 5th metatarsal. No focal abscess. There is diffuse soft tissue edema. Guidance Fluoroscopy 07/28/17 00:00 IMPRESSION: SUCCESSFUL PLACEMENT OF A 5 FR DUAL LUMEN 42 CM PICC IN THE LEFT BASILIC VEIN. Interventional Vascular Procedure 07/28/17 00:00 IMPRESSION: SUCCESSFUL PLACEMENT OF A 5 FR DUAL LUMEN 42 CM PICC IN THE LEFT BASILIC VEIN. PICC Line Insertion 07/28/17 00:00 IMPRESSION: SUCCESSFUL PLACEMENT OF A 5 FR DUAL LUMEN 42 CM PICC IN THE LEFT BASILIC VEIN. Assessment & Plan - Diagnosis (1) Sepsis Qualifiers: Sepsis type: sepsis due to unspecified organism Qualified Code(s): A41.9 - Sepsis, unspecified organism Is this a current diagnosis for this admission?: Yes Plan: Secondary to osteomyelitis of the left foot. Status post amputation. Patient requires 14 days of IV antibiotics after the amputation. The patient's last day of antibiotics will be August 11. PICC line is in place. (2) Acute respiratory failure with hypoxia Is this a current diagnosis for this admission?: Yes Plan: Secondary to acute COPD exacerbation. This has resolved. (3) Acute kidney injury superimposed on chronic kidney disease Is this a current diagnosis for this admission?: Yes Plan: The patient has some peripheral edema. It has improved with Lasix. 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 (5) Hyperkalemia Is this a current diagnosis for this admission?: Yes Plan: Secondary to renal failure. Potassium is normal today. We will continue to monitor closely. (6) Tobacco abuse Is this a current diagnosis for this admission?: Yes Plan: He is encouraged to abstain (7) Bipolar disorder Qualifiers: Active/Remission status: remission status unspecified Qualified Code(s): F31.9 - Bipolar disorder, unspecified Is this a current diagnosis for this admission?: Yes Plan: Continue with Elavil, Zyprexa, Prozac, Xanax. (8) Cocaine abuse Is this a current diagnosis for this admission?: Yes (9) Osteomyelitis of toe of left foot Is this a current diagnosis for this admission?: Yes Plan: Patient is status post amputation of the left fifth toe and metatarsal head. Will continue with the IV daptomycin for a total of 14 days after surgery. (10) Anemia of chronic disease Is this a current diagnosis for this admission?: Yes - Time Time Spent with patient: 25-34 minutes - Inpatient Certification Medical Necessity: Need for IV Antibiotics
[2017-08-09] MEDS ORDERED: INFLUENZA ADLT QUAD (36MOS+) 2017-18 VAC 0.5 ML SYR IM PRN (10:32)
[2017-08-09] MEDS: ARIPIPRAZOLE 5 MG TABLET PO SCH (17:23)
[2017-08-09] MEDS: NORMAL SALINE IV SCH (22:30)
[2017-08-09] MEDS: DAPTOMYCIN IV SCH (22:30)
[2017-08-09] MEDS: SIMVASTATIN 10 MG TABLET PO SCH (22:31)
[2017-08-09] MEDS: ZOLPIDEM TARTRATE 5 MG TABLET PO SCH (22:31)
[2017-08-10] MEDS: OXYCODONE HCL IR 5 MG TABLET PO PRN ×3 (05:58→21:40)
[2017-08-10] MEDS: HYDRALAZINE HCL 50 MG TABLET PO SCH ×3 (05:58→21:39)
[2017-08-10] MEDS: INSULIN LISPRO 100 UNIT/ML 3 ML VIAL SUBCUT SCH ×3 (07:44→17:18)
[2017-08-10] MEDS: AMITRIPTYLINE HCL 25 MG TABLET PO SCH (09:24)
[2017-08-10] MEDS: FLUOXETINE HCL 20 MG CAPSULE PO SCH (09:24)
[2017-08-10] MEDS: ATENOLOL 50 MG TABLET PO SCH (09:25)
[2017-08-10] MEDS: SODIUM BICARBONATE 650 MG TABLET PO SCH (09:25)
[2017-08-10] MEDS: LACTOBACILLUS ACIDOPHILUS 250 MG TAB PO SCH ×2 (09:25→17:20)
[2017-08-10] MEDS: CLONIDINE HCL 0.1 MG TABLET PO SCH ×2 (09:26→21:39)
[2017-08-10] MEDS: TORSEMIDE 20 MG TABLET PO SCH (09:26)
[2017-08-10] MEDS: GABAPENTIN 400 MG CAPSULE PO SCH ×2 (09:26→21:39)
[2017-08-10] MEDS: INSULIN GLARGINE,HUM.REC.ANLOG 1,000 UNIT/10 ML UNIT SUBCUT SCH ×2 (09:34→17:15)
[2017-08-10] MEDS: NORMAL SALINE 10 ML SDV (SCHEDULED) IV SCH ×2 (09:34→21:40)
[2017-08-10] MEDS: ENOXAPARIN SODIUM INJ 40 MG/0.4 ML DISP.SYRIN SUBCUT SCH (09:35)
[2017-08-10] MEDS: FLUTICASONE NASAL SPRAY 50 MCG/SPRY 120 SPRAY/16 GM NASL SCH (09:36)
--- NOTE | 2017-08-10 12:54 | PDOC PROGRESS REPORT ---
Subjective Progress Note for:: 08/10/17 Subjective:: Complaints of lower extremity edema Physical Exam Vital Signs: Temp Pulse Resp BP Pulse Ox 98.2 F 81 16 147/92 H 96 08/10/17 11:15 08/10/17 11:15 08/10/17 11:15 08/10/17 11:15 08/10/17 11:15 Intake & Output 08/09/17 08/10/17 08/11/17 06:59 06:59 06:59 Intake Total 1502 2150 Output Total 850 500 Balance 652 1650 Weight 130.4 kg 128 kg General appearance: PRESENT: no acute distress Eye exam: PRESENT: conjunctiva pink. ABSENT: scleral icterus Ear exam: PRESENT: normal external ear exam Mouth exam: PRESENT: moist, tongue midline Neck exam: ABSENT: JVD Respiratory exam: PRESENT: clear to auscultation vanessa. ABSENT: rales, rhonchi, wheezes Cardiovascular exam: PRESENT: RRR. ABSENT: diastolic murmur, rubs, systolic murmur GI/Abdominal exam: PRESENT: normal bowel sounds, soft. ABSENT: distended, guarding, mass, organolmegaly, rebound, tenderness Extremities exam: PRESENT: pedal edema, +1 edema. ABSENT: calf tenderness, clubbing Neurological exam: PRESENT: alert, awake, oriented to person, oriented to place , oriented to time, oriented to situation, CN II-XII grossly intact. ABSENT: motor sensory deficit Psychiatric exam: PRESENT: appropriate affect Skin exam: PRESENT: other - Wound VAC in place on the left foot. Results Laboratory Results: 08/08/17 05:05 08/08/17 05:05 Impressions: Renal Ultrasound 07/16/17 00:00 IMPRESSION: No hydronephrosis. Chest X-Ray 07/16/17 11:43 IMPRESSION: NO ACUTE RADIOGRAPHIC FINDING IN THE CHEST. Lower Extremity MRI 07/21/17 00:00 IMPRESSION: Probable osteomyelitis involving the distal 5th metatarsal. No focal abscess. There is diffuse soft tissue edema. Guidance Fluoroscopy 07/28/17 00:00 IMPRESSION: SUCCESSFUL PLACEMENT OF A 5 FR DUAL LUMEN 42 CM PICC IN THE LEFT BASILIC VEIN. Interventional Vascular Procedure 07/28/17 00:00 IMPRESSION: SUCCESSFUL PLACEMENT OF A 5 FR DUAL LUMEN 42 CM PICC IN THE LEFT BASILIC VEIN. PICC Line Insertion 07/28/17 00:00 IMPRESSION: SUCCESSFUL PLACEMENT OF A 5 FR DUAL LUMEN 42 CM PICC IN THE LEFT BASILIC VEIN. Assessment & Plan - Diagnosis (1) Sepsis Qualifiers: Sepsis type: sepsis due to unspecified organism Qualified Code(s): A41.9 - Sepsis, unspecified organism Is this a current diagnosis for this admission?: Yes Plan: Secondary to osteomyelitis of the left foot. Status post amputation. Patient requires 14 days of IV antibiotics after the amputation. The patient's last day of antibiotics will be August 11. PICC line is in place. (2) Acute respiratory failure with hypoxia Is this a current diagnosis for this admission?: Yes Plan: Secondary to acute COPD exacerbation. This has resolved. (3) Acute kidney injury superimposed on chronic kidney disease Is this a current diagnosis for this admission?: Yes Plan: The patient has some peripheral edema. It has improved with Lasix. 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 (5) Hyperkalemia Is this a current diagnosis for this admission?: Yes Plan: Secondary to renal failure. Potassium is normal today. We will continue to monitor closely. (6) Tobacco abuse Is this a current diagnosis for this admission?: Yes Plan: He is encouraged to abstain (7) Bipolar disorder Qualifiers: Active/Remission status: remission status unspecified Qualified Code(s): F31.9 - Bipolar disorder, unspecified Is this a current diagnosis for this admission?: Yes Plan: Continue with Elavil, Zyprexa, Prozac, Xanax. (8) Cocaine abuse Is this a current diagnosis for this admission?: Yes (9) Osteomyelitis of toe of left foot Is this a current diagnosis for this admission?: Yes Plan: Patient is status post amputation of the left fifth toe and metatarsal head. Will continue with the IV daptomycin for a total of 14 days after surgery. (10) Anemia of chronic disease Is this a current diagnosis for this admission?: Yes - Time Time Spent with patient: 25-34 minutes - Plan Summary Plan Summary: We will plan on discharge home tomorrow after he finishes his antibiotics.
[2017-08-10] MEDS: ARIPIPRAZOLE 5 MG TABLET PO SCH (17:20)
[2017-08-10] MEDS: SIMVASTATIN 10 MG TABLET PO SCH (21:39)
[2017-08-10] MEDS: NORMAL SALINE IV SCH (21:39)
[2017-08-10] MEDS: DAPTOMYCIN IV SCH (21:39)
[2017-08-10] MEDS: INSULIN LISPRO 100 UNIT/ML 3 ML VIAL SUBCUT PRN (21:40)
[2017-08-10] MEDS: ZOLPIDEM TARTRATE 5 MG TABLET PO SCH (21:40)
[2017-08-11] MEDS: OXYCODONE HCL IR 5 MG TABLET PO PRN ×2 (04:18→09:50)
[2017-08-11] MEDS: HYDRALAZINE HCL 50 MG TABLET PO SCH (05:49)
[2017-08-11 06:08] LABS: ABSOLUTE EOSINOPHILS # (AUTO) 0.2 10^3/uL (0.0-0.6); ABSOLUTE LYMPHOCYTES (AUTO) 0.7 10^3/uL (0.5-4.7); ABSOLUTE MONOCYTES (AUTO) 0.7 10^3/uL (0.1-1.4); ABSOLUTE NEUT (AUTO) 1.9 10^3/uL (1.7-8.2); BASOPHILS % (AUTO) 0.9 % (0-2); EOSINOPHILS % (AUTO) 4.3 % (0-6); HEMATOCRIT 26.7 % (37.9-51.0); HEMOGLOBIN 9.1 g/dL (13.5-17.0); HGB HCT DIFFERENCE 0.6; LYMPHOCYTES % (AUTO) 20.4 % (13-45); MEAN CORPUSCULAR HEMOGLOBIN 27.4 pg (27.0-33.4); MEAN CORPUSCULAR HGB CONC 34.1 g/dL (32.0-36.0); MEAN CORPUSCULAR VOLUME 80 fl (80-97); MONOCYTES % (AUTO) 19.2 % (3-13); RED BLOOD COUNT 3.33 10^6/uL (4.35-5.55); SEGMENTED NEUTROPHILS % (AUTO) 55.2 % (42-78); WHITE BLOOD COUNT 3.5 10^3/uL (4.0-10.5)
[2017-08-11 06:20] LABS: ANION GAP 12 (5-19); BLOOD UREA NITROGEN 40 mg/dL (7-20); CALCIUM 9.5 mg/dL (8.4-10.2); CARBON DIOXIDE 30 mmol/L (22-30); CHLORIDE 94 mmol/L (98-107); GLUCOSE 274 mg/dL (75-110); POTASSIUM 4.5 mmol/L (3.6-5.0); SODIUM 135.8 mmol/L (137-145)
[2017-08-11] MEDS: INSULIN LISPRO 100 UNIT/ML 3 ML VIAL SUBCUT SCH ×2 (09:48→12:23)
[2017-08-11] MEDS: INSULIN GLARGINE,HUM.REC.ANLOG 1,000 UNIT/10 ML UNIT SUBCUT SCH (09:48)
[2017-08-11] MEDS: CLONIDINE HCL 0.1 MG TABLET PO SCH (09:49)
[2017-08-11] MEDS: FLUOXETINE HCL 20 MG CAPSULE PO SCH (09:49)
[2017-08-11] MEDS: AMITRIPTYLINE HCL 25 MG TABLET PO SCH (09:49)
[2017-08-11] MEDS: ENOXAPARIN SODIUM INJ 40 MG/0.4 ML DISP.SYRIN SUBCUT SCH (09:49)
[2017-08-11] MEDS: GABAPENTIN 400 MG CAPSULE PO SCH (09:49)
[2017-08-11] MEDS: SODIUM BICARBONATE 650 MG TABLET PO SCH (09:49)
[2017-08-11] MEDS: LACTOBACILLUS ACIDOPHILUS 250 MG TAB PO SCH (09:50)
[2017-08-11] MEDS: NORMAL SALINE 10 ML SDV (SCHEDULED) IV SCH (09:50)
[2017-08-11] MEDS: ATENOLOL 50 MG TABLET PO SCH (12:22)
[2017-08-11] MEDS: TORSEMIDE 20 MG TABLET PO SCH (12:23)
[2017-08-11] MEDS: FLUTICASONE NASAL SPRAY 50 MCG/SPRY 120 SPRAY/16 GM NASL SCH (12:23)
[2017-08-11 12:58] VITALS: BP 152/89
--- NOTE | 2017-08-11 16:17 | PDOC DISCHARGE SUMMARY ---
General - Admit/Disc Date/PCP Admission Date/Primary Care Provider: 07/16/17 18:24 ANDREIA LÓPEZ MD Discharge Date: 08/11/17 - Discharge Diagnosis (1) Sepsis Is this a current diagnosis for this admission?: Yes Summary: Patient had sepsis from infected PICC line that was removed. He grew out enterococcus and stenotrophomonas. Patient also had infection from osteomyelitis in his foot with enterococcus and other organisms. (2) Acute respiratory failure with hypoxia Is this a current diagnosis for this admission?: Yes (3) Acute kidney injury superimposed on chronic kidney disease Is this a current diagnosis for this admission?: Yes (4) Diabetes Is this a current diagnosis for this admission?: Yes (5) Hyperkalemia Is this a current diagnosis for this admission?: Yes (6) Tobacco abuse Is this a current diagnosis for this admission?: Yes (7) Bipolar disorder Is this a current diagnosis for this admission?: Yes (8) Cocaine abuse Is this a current diagnosis for this admission?: Yes (9) Osteomyelitis of toe of left foot Is this a current diagnosis for this admission?: Yes Summary: Patient had transmetatarsal amputation of the left fifth toe. He completed 2 weeks of antibiotics after the patient had amputation. (10) Anemia of chronic disease Is this a current diagnosis for this admission?: Yes - Additional Information Resuscitation Status: Full Code Discharge Diet: Diabetic Discharge Activity: Activity As Tolerated, Balance Activity w/Rest Home Medications: Alprazolam [Xanax] 2 mg PO BID 06/08/17 Amitriptyline HCl [Elavil 25 mg Tablet] 25 mg PO DAILY 06/08/17 Aripiprazole [Abilify] 20 mg PO QPM 06/08/17 Atenolol [Tenormin 100 mg Tablet] 100 mg PO DAILY 06/08/17 Clonidine HCl [Catapres 0.1 mg Tablet] 0.1 mg PO Q12 06/08/17 Cyclobenzaprine HCl [Flexeril 10 mg Tablet] 10 mg PO TIDP PRN 06/08/17 Emtricitab/Rilpiviri/Tenof Ala [Odefsey Tablet] 1 each PO DAILY 06/08/17 Ergocalciferol (Vitamin D2) [Drisdol 50,000 unit (1.25MG) Capsule] 50,000 unit PO BARRON@1000 06/08/17 Fluoxetine HCl [Prozac] 40 mg PO DAILY 06/08/17 Fluticasone Propionate [Flonase Nasal [place] 50 Mcg/[place]don 16 gm] 2 sprays NASL DAILY 06/08/17 Gabapentin [Neurontin 400 mg Capsule] 400 mg PO BID 06/08/17 Hydralazine HCl [Apresoline 50 mg Tablet] 50 mg PO Q8 06/08/17 Levocetirizine Dihydrochloride [Xyzal] 5 mg PO DAILYP PRN 06/08/17 Prazosin HCl [Minipress] 1 mg PO QHS 06/08/17 Simvastatin [Zocor 20 mg Tablet] 20 mg PO QHS 06/08/17 Sodium Polystyrene Sulfon/Sorb [Sps 15 gm/60 ml Suspension] 30 gm PO MO@1000 Zolpidem Tartrate [Ambien] 15 mg PO HSP PRN 06/08/17 Hydromorphone HCl [Dilaudid 2 mg Tablet] 4 mg PO Q2HP PRN #10 tablet 06/15/17 Sodium Bicarbonate [Sodium Bicarbonate 650 mg Tablet] 650 mg PO DAILY #30 tablet 06/15/17 Tramadol HCl 50 mg PO QID PRN #20 tablet 07/05/17 Flu Vacc [id number] Up/Pf [Fluzone Adlt Quad 5500-3302 Vac 0.5 ml Syr] 0.5 ml IM .DISCHARGE PRN disp.syrin 08/11/17 Insulin Glargine,Hum.rec.anlog [Lantus Insulin 100 Unit/1 ml 10 ml] 35 unit SUBCUT BID unit 08/11/17 Levofloxacin [Levaquin 750 mg Tablet] 750 mg PO DAILY #14 tablet 08/11/17 Oxycodone HCl [Oxy-Ir 5 mg Tablet] 10 mg PO Q4HP PRN #14 tablet 08/11/17 Torsemide [Demadex 20 mg Tablet] 20 mg PO DAILY #30 tablet 08/11/17 History of Present Illness History of Present Illness: MILADYS LONDON III is a 46 year old male who presented with having diarrhea and also nausea and vomiting at home. The patient also had been coughing quite a bit and had some shortness of breath. He was admitted with acute respiratory failure secondary to COPD. The patient also has had problems with chronic ongoing foot infections of his left foot with osteomyelitis of the left fifth toe. Patient is admitted for treatment of his respiratory status as well as the osteomyelitis. Hospital Course Hospital Course: 46-year-old male who has a history of diabetes and chronic renal failure who presented with diarrhea and some respiratory difficulties. These were treated and improved however the patient has had problems with chronic infections of his feet given his history of diabetes. The patient had a PICC line placed and was treated with IV antibiotics. He had cultures that grew out enterococcus and it was felt that the PICC line was infected and it was removed. The PICC line tip did actually grew out bacteria. After his bacteremia cleared he was continued on with IV antibiotics. His most mellitus was evaluated by surgery who performed a left fifth toe transmetatarsal amputation. After the amputation the patient was continued on antibiotics for an additional 14 days. He will be sent home on an additional 2 weeks of Levaquin after that to take orally. Patient while hospitalized did have an echocardiogram because the bacteremia and there is no evidence for vegetations on his transthoracic. It was not felt that was necessary for a transesophageal echo given the fact that we have a source in his PICC line for the cause of the infection. Patient had a wound VAC placed on his foot. He has been followed by surgery and will go home with a wound VAC and follow-up with the wound clinic. Physical Exam Vital Signs: Temp Pulse Resp BP Pulse Ox 98.1 F 89 16 152/89 H 98 08/11/17 12:47 08/11/17 12:47 08/11/17 12:47 08/11/17 12:47 08/11/17 12:47 Intake & Output 08/10/17 08/11/17 08/12/17 06:59 06:59 06:59 Intake Total 2150 2744 644 Output Total 500 Balance 1650 2744 644 Weight 128 kg 126.8 kg General appearance: PRESENT: no acute distress Eye exam: PRESENT: conjunctiva pink. ABSENT: scleral icterus Ear exam: PRESENT: normal external ear exam Mouth exam: PRESENT: moist, tongue midline Neck exam: ABSENT: JVD Respiratory exam: PRESENT: clear to auscultation vanessa. ABSENT: rales, rhonchi, wheezes Cardiovascular exam: PRESENT: RRR. ABSENT: diastolic murmur, rubs, systolic murmur GI/Abdominal exam: PRESENT: normal bowel sounds, soft. ABSENT: distended, guarding, mass, organolmegaly, rebound, tenderness Extremities exam: PRESENT: pedal edema, other - Wound VAC in place on the left foot.. ABSENT: calf tenderness, clubbing Neurological exam: PRESENT: alert, awake, oriented to person, oriented to place , oriented to time, oriented to situation, CN II-XII grossly intact. ABSENT: motor sensory deficit Psychiatric exam: PRESENT: appropriate affect Skin exam: PRESENT: other - Wound VAC in place on the left foot. Results Laboratory Results: 08/11/17 05:45 08/11/17 05:45 08/11/17 08/11/17 05:45 05:45 WBC 3.5 L RBC 3.33 L Hgb 9.1 L Hct 26.7 L MCV 80 MCH 27.4 MCHC 34.1 RDW 15.0 H Plt Count 227 Seg Neutrophils % 55.2 Lymphocytes % 20.4 Monocytes % 19.2 H Eosinophils % 4.3 Basophils % 0.9 Absolute Neutrophils 1.9 Absolute Lymphocytes 0.7 Absolute Monocytes 0.7 Absolute Eosinophils 0.2 Absolute Basophils 0.0 Sodium 135.8 L Potassium 4.5 Chloride 94 L Carbon Dioxide 30 Anion Gap 12 BUN 40 H Creatinine 1.80 H Est GFR ( Amer) 49 L Est GFR (Non-Af Amer) 40 L Glucose 274 H Calcium 9.5 Impressions: Renal Ultrasound 07/16/17 00:00 IMPRESSION: No hydronephrosis. Chest X-Ray 07/16/17 11:43 IMPRESSION: NO ACUTE RADIOGRAPHIC FINDING IN THE CHEST. Lower Extremity MRI 07/21/17 00:00 IMPRESSION: Probable osteomyelitis involving the distal 5th metatarsal. No focal abscess. There is diffuse soft tissue edema. Guidance Fluoroscopy 07/28/17 00:00 IMPRESSION: SUCCESSFUL PLACEMENT OF A 5 FR DUAL LUMEN 42 CM PICC IN THE LEFT BASILIC VEIN. Interventional Vascular Procedure 07/28/17 00:00 IMPRESSION: SUCCESSFUL PLACEMENT OF A 5 FR DUAL LUMEN 42 CM PICC IN THE LEFT BASILIC VEIN. PICC Line Insertion 07/28/17 00:00 IMPRESSION: SUCCESSFUL PLACEMENT OF A 5 FR DUAL LUMEN 42 CM PICC IN THE LEFT BASILIC VEIN. Qualifiers PATEINT BEING DISCHARGED WITH ANY OF THE FOLLOWING DIAGNOSIS?: No Plan Discharge Plan: Patient is discharged home in stable condition. Will follow up with the wound clinic in 1 week and follow-up with primary care doctor in 1-2 weeks. Time Spent: Greater than 30 Minutes
== END 2017-08-11 15:00 | disposition home health service (06) | DRG 239 ==
LOC: ER 11:41 → EH 18:24 → UNDOADMIN 18:52 → EH 18:52 → 4N 21:26 → 4S 08-05 18:49
PROC: 02PY33Z Removal of Infusion Device from Great Vessel, Percutaneous Approach (ICD-10-PCS; 2017-07-17)
PROC: 3E0F73Z Introduction of Anti-inflammatory into Respiratory Tract, Via Natural or Artificial Opening (ICD-10-PCS; 2017-07-17)
PROC: 02HV33Z Insertion of Infusion Device into Superior Vena Cava, Percutaneous Approach (ICD-10-PCS; 2017-07-26)
PROC: B548ZZA Ultrasonography of Superior Vena Cava, Guidance (ICD-10-PCS; 2017-07-26)
PROC: B5181ZA Fluoroscopy of Superior Vena Cava using Low Osmolar Contrast, Guidance (ICD-10-PCS; 2017-07-26)
PROC: 0Y6N0ZF Detachment at Left Foot, Partial 5th Ray, Open Approach (ICD-10-PCS; principal; 2017-07-27 14:45)
PROC: 30233N1 Transfusion of Nonautologous Red Blood Cells into Peripheral Vein, Percutaneous Approach (ICD-10-PCS; 2017-08-05)
DX: T80.212A Local infection due to central venous catheter, initial encounter (principal); J96.01 Acute respiratory failure with hypoxia; N17.0 Acute kidney failure with tubular necrosis; R65.20 Severe sepsis without septic shock; A41.9 Sepsis, unspecified organism; J44.1 Chronic obstructive pulmonary disease with (acute) exacerbation; M86.172 Other acute osteomyelitis, left ankle and foot; Y82.8 Other medical devices associated with adverse incidents; E11.69 Type 2 diabetes mellitus with other specified complication; B95.2 Enterococcus as the cause of diseases classified elsewhere; B96.89 Other specified bacterial agents as the cause of diseases classified elsewhere; E11.22 Type 2 diabetes mellitus with diabetic chronic kidney disease; E87.5 Hyperkalemia; F17.200 Nicotine dependence, unspecified, uncomplicated; F31.9 Bipolar disorder, unspecified; F14.10 Cocaine abuse, uncomplicated; D63.1 Anemia in chronic kidney disease; I25.10 Atherosclerotic heart disease of native coronary artery without angina pectoris; I12.9 Hypertensive chronic kidney disease with stage 1 through stage 4 chronic kidney disease, or unspecified chronic kidney disease; Z86.711 Personal history of pulmonary embolism; Z79.899 Other long term (current) drug therapy; F41.9 Anxiety disorder, unspecified; Z21 Asymptomatic human immunodeficiency virus [HIV] infection status; E11.51 Type 2 diabetes mellitus with diabetic peripheral angiopathy without gangrene; Z96.651 Presence of right artificial knee joint; M19.90 Unspecified osteoarthritis, unspecified site; F43.10 Post-traumatic stress disorder, unspecified; K08.409 Partial loss of teeth, unspecified cause, unspecified class; B96.4 Proteus (mirabilis) (morganii) as the cause of diseases classified elsewhere; B95.61 Methicillin susceptible Staphylococcus aureus infection as the cause of diseases classified elsewhere; E11.65 Type 2 diabetes mellitus with hyperglycemia; Z91.14 Patient's other noncompliance with medication regimen; Z86.14 Personal history of Methicillin resistant Staphylococcus aureus infection; I25.2 Old myocardial infarction; Z88.0 Allergy status to penicillin; Z79.4 Long term (current) use of insulin; Z82.49 Family history of ischemic heart disease and other diseases of the circulatory system; Z83.6 Family history of other diseases of the respiratory system; Z83.3 Family history of diabetes mellitus
CPT/HCPCS: 01480; 36415; 36430; 36569; 71010; 76775; 76937; 77001; 80048; 80053; 80202; 80307; 81001; 82565; 82803; 82962; 83036; 83605; 83735; 84100; 85025; 85027; 85610; 85730; 86850; 86900; 86901; 86920; 87040; 87070; 87075; 87077; 87086; 87186; 87205; 87493; 88305; 88311; 93005; 93010; 93306; 93970; 94640; 96361; 96374; 99291; A6266; A9576; G8978-GP; G8979-GP; G8987-GO; G8988-GO; J0878; J1170; J1642; J1650; J1815; J1885; J1940; J1956; J2250; J2270; J2405; J2704; J2930; J3010; J3370; J3490; J7030; J7060; J7620; P9016

== ENCOUNTER 2017-08-18 20:40 | Emergency (ER) | payer MEDICARE, MEDICAID ==
[2017-08-18 22:16] LABS: ABSOLUTE EOSINOPHILS # (AUTO) 0.2 10^3/uL (0.0-0.6); ABSOLUTE LYMPHOCYTES (AUTO) 1.3 10^3/uL (0.5-4.7); ABSOLUTE MONOCYTES (AUTO) 1.2 10^3/uL (0.1-1.4); ABSOLUTE NEUT (AUTO) 4.1 10^3/uL (1.7-8.2); BASOPHILS % (AUTO) 0.7 % (0-2); EOSINOPHILS % (AUTO) 2.3 % (0-6); HEMATOCRIT 31.4 % (37.9-51.0); HEMOGLOBIN 10.3 g/dL (13.5-17.0); HGB HCT DIFFERENCE -0.5; LYMPHOCYTES % (AUTO) 18.8 % (13-45); MEAN CORPUSCULAR HEMOGLOBIN 26.1 pg (27.0-33.4); MEAN CORPUSCULAR HGB CONC 32.8 g/dL (32.0-36.0); MEAN CORPUSCULAR VOLUME 80 fl (80-97); MONOCYTES % (AUTO) 17.2 % (3-13); RED BLOOD COUNT 3.94 10^6/uL (4.35-5.55); RED CELL DISTRIBUTION WIDTH 14.9 % (11.5-14.0); WHITE BLOOD COUNT 6.8 10^3/uL (4.0-10.5)
--- NOTE | 2017-08-18 22:21 | RADIOLOGY REPORT (SQ) ---
EXAM DESCRIPTION: FOOT LEFT COMPLETE COMPLETED DATE/TIME: 08/18/2017 9:45 pm REASON FOR STUDY: PAIN POST OP COMPLAINT COMPARISON: 04/24/2017 NUMBER OF VIEWS: Three views. TECHNIQUE: AP, lateral and oblique radiographic images acquired of the left foot. LIMITATIONS: None. FINDINGS: MINERALIZATION: Osteopenia. BONES: Postoperative changes from recent resection of the distal 5th metatarsal and phalanx. Old res ection of the 2nd and 3rd distal metatarsals and phalanges. No acute fracture. SOFT TISSUES: Moderate soft tissue swelling. No radiopaque foreign body. OTHER: No other significant finding. IMPRESSION: Postoperative changes from recent resection of the distal 5th metatarsal and phalanx. O ld resection of the 2nd and 3rd distal metatarsals and phalanges. No acute fracture.Moderate soft ti ssue swelling. No radiopaque foreign body. TECHNICAL DOCUMENTATION: JOB ID: [id number] [email or web address] All Rights Reserved
[2017-08-18 22:29] LABS: ALANINE AMINOTRANSFERASE 28 U/L (21-72); ALBUMIN 4.5 g/dL (3.5-5.0); ALKALINE PHOSPHATASE 113 U/L (38-126); ANION GAP 15 (5-19); ASPARTATE AMINO TRANSFERASE 21 U/L (17-59); BILIRUBIN,DIRECT 0.5 mg/dL (0.0-0.4); BILIRUBIN,TOTAL 0.6 mg/dL (0.2-1.3); BLOOD UREA NITROGEN 29 mg/dL (7-20); CALCIUM 9.7 mg/dL (8.4-10.2); CARBON DIOXIDE 25 mmol/L (22-30); CHLORIDE 103 mmol/L (98-107); CREATININE RESULT 1.69 mg/dL (0.52-1.25); GLUCOSE 246 mg/dL (75-110); POTASSIUM 5.4 mmol/L (3.6-5.0); SODIUM 143.1 mmol/L (137-145); TOTAL PROTEIN 8.8 g/dL (6.3-8.2)
[2017-08-18] MEDS ORDERED: ACETAMINOPHEN 325 MG TABLET PO ONE (23:33)
--- NOTE | 2017-08-18 23:37 | ER Document Report ---
ED General - General Chief Complaint: Foot Pain Stated Complaint: LEFT FOOT PAIN Time Seen by Provider: 08/18/17 22:55 Notes: Patient is a 46-year-old male with history of HIV and vascular insufficiency and diabetes. Says he does take his HIV medications as prescribed. He had foot surgery approximately 3 weeks ago and had toes removed from the left foot. He is seeing wound care twice a week. He says he did see wound care yesterday. He says he still been walking on the foot. He is not always keeping it covered. He is using a cane. He says he has had some slight increased swelling and continues have pain there. He said no fevers. He is on antibiotic already. He denies any active bleeding from the foot. No other complaints at this time. TRAVEL OUTSIDE OF THE [place] IN LAST 30 DAYS: No - Related Data Allergies/Adverse Reactions: Penicillins Allergy (Verified 08/18/17 21:04) rash Past Medical History - Social History Smoking Status: Unknown if Ever Smoked Frequency of alcohol use: None Drug Abuse: None Family History: CAD, COPD, DM, Hyperlipidemia, Hypertension Patient has suicidal ideation: No Patient has homicidal ideation: No - Past Medical History Cardiac Medical History: Reports: Hx Coronary Artery Disease, Hx Heart Attack, Hx Hypercholesterolemia, Hx Hypertension, Hx Peripheral Vascular Disease, Hx Pulmonary Embolism Pulmonary Medical History: Reports: Hx Asthma, Hx COPD, Hx Pneumonia - 1 year ago Neurological Medical History: Reports: Hx Seizures - Patient had a seizure in 2012. Depakote stopped by his physician. Endocrine Medical History: Reports: Hx Diabetes Mellitus Type 1, Hx Diabetes Mellitus Type 2 - Patient is a poorly compliant, poorly controlled diabetic who uses insulin. Renal/ Medical History: Reports: Hx Renal Insufficiency. Denies: Hx Peritoneal Dialysis Malignancy Medical History: GI Medical History: Reports: Hx Hepatitis Musculoskeltal Medical History: Reports Hx Arthritis, Reports Hx Musculoskeletal Trauma Skin Medical History: Reports Hx MRSA Psychiatric Medical History: Reports: Hx Anxiety, Hx Bipolar Disorder, Hx Depression, Hx Post Traumatic Stress Disorder Traumatic Medical History: Reports: Hx Fractures - Knee pelvis and hand Infectious Medical History: Reports: Hx Hepatitis, Hx HIV - Patient reports no detectable viral count, Hx MRSA Past Surgical History: Reports: Hx Oral Surgery - Removal of most of teeth, Hx Orthopedic Surgery - right knee replacement, rt toe amputation; amputation 2 left toes., Other - Laser eye surgery PICC line placement, wound debridement - Immunizations Immunizations up to date: Yes Hx Diphtheria, Pertussis, Tetanus Vaccination: Yes Hx Pneumococcal Vaccination: 11/09/13 Review of Systems - Review of Systems Notes: My Normal Review Basic REVIEW OF SYSTEMS: CONSTITUTIONAL : Denies fever, chills, or sweats. Denies recent illness. MUSCULOSKELETAL: Postoperative wound on the lateral plantar aspect of left foot. SKIN: Denies rash or skin lesions. NEUROLOGICAL: Denies weakness or paralysis or loss of use of either side. Denies problems with gait or speech. Denies sensory or motor loss. ALL OTHER SYSTEMS REVIEWED AND NEGATIVE. Physical Exam - Vital signs Vitals: Temp Pulse Resp BP Pulse Ox 98.5 F 87 16 156/100 H 99 08/18/17 20:57 08/18/17 20:57 08/18/17 20:57 08/18/17 20:57 08/18/17 20:57 - Notes Notes: General Appearance: Well nourished, alert, cooperative, no acute distress, no obvious discomfort. Vitals: reviewed, See vital signs table. Eyes: PERRL, EOMI, Conjuctiva clear Mouth: No decreasd moisture Extremities: strength 5/5 in all extremities, good pulses in all extremities, Patient has postoperative wound on the lateral plantar aspect of the left foot. He has good granulation. No significant surrounding redness. No abnormal discharge. No foul smell. He does have a lot of dirt on the bottom of his foot because he is not wearing a sock not keeping his feet clean. Some the dirt does actually extend into the wound itself. Skin: warm, dry, appropriate color, no rash Neuro: speech clear, oriented x 3, normal affect, responds appropriately to questions. Course - Re-evaluation Re-evalutation: 08/19/17 05:52 I irrigated the dirt off of the patient's foot and cleaned some of the dirt off with peroxide and irrigated again. I then placed a clean sterile nonstick dressing over the wound followed by a clean gauze and wrapped with Sam Kerlix. I talked the patient length about the importance of keeping the wound clean and to not apply pressure on the foot. He does have some edema into the leg and foot which appears chronic. I informed him that he should keep his foot elevated when in bed and also elevated when he sitting in a chair and that this would help reduce edema. He says that he does not have a postoperative appointment with Dr. Worthy. I informed him that typically people usually have a two-week follow-up appointment. Informed her he must call Dr. Worhty to arrange the appointment. Also informed patient to continue to follow-up with wound care and to again try to keep his foot and wound clean. Patient to return to ER immediately if has any redness, increased swelling, fell smelling drainage, fevers, or any further concerns. Patient agrees with plan and will be discharged home. Dictation of this chart was performed using voice recognition software; therefore, there may be some unintended grammatical errors. - Vital Signs Vital signs: Temp Pulse Resp BP Pulse Ox 97.5 F 83 16 167/105 H 97 08/19/17 00:34 08/19/17 00:34 08/19/17 00:34 08/19/17 00:34 08/19/17 00:34 - Laboratory Result Diagrams: 08/18/17 22:00 08/18/17 22:00 Laboratory results interpreted by me: 08/18/17 08/18/17 22:00 22:00 RBC 3.94 L Hgb 10.3 L Hct 31.4 L MCH 26.1 L RDW 14.9 H Monocytes % 17.2 H Potassium 5.4 H BUN 29 H Creatinine 1.69 H Est GFR ( Amer) 53 L Est GFR (Non-Af Amer) 44 L Glucose 246 H Direct Bilirubin 0.5 H Total Protein 8.8 H Discharge - Discharge Clinical Impression: Wound, open, foot Condition: Good Disposition: HOME, SELF-CARE Additional Instructions: Please return to the ER immediately if you have fevers, redness to the foot, foul smelling drainage, or further concerns that you are having recurrent infection. Please call Dr. Worthy's office to make a follow up appointment as soon as possible (preferably this week.) Please stay off your foot and use the crutches. Please keep your foot elevated in on pillows to help minimize swelling. Follow up with the wound care clinic this week as scheduled. Referrals: SANTOSH SEO PA-C [Primary Care Provider] - Follow up as needed
[2017-08-19 00:36] VITALS: BP 167/105
== END 2017-08-19 00:58 | disposition home or self-care (01) ==
LOC: ER 20:40
DX: S91.302A Unspecified open wound, left foot, initial encounter (principal); M79.672 Pain in left foot; B20 Human immunodeficiency virus [HIV] disease; I99.8 Other disorder of circulatory system; E11.9 Type 2 diabetes mellitus without complications; X58.XXXA Exposure to other specified factors, initial encounter
CPT/HCPCS: 99284; 36415; 85025; 80053; 73630; A9270

== ENCOUNTER 2017-08-30 15:12 | Emergency (ER) | payer MEDICARE, MEDICAID ==
[2017-08-30] MEDS ORDERED: ACETAMINOPHEN 325 MG TABLET PO ONE ×2 (15:20→15:31)
[2017-08-30] MEDS ORDERED: VANCOMYCIN HCL INJ 1000 MG VIAL IV ONE (15:27)
[2017-08-30] MEDS ORDERED: NORMAL SALINE 1000 ML 1,000 ML IV ONE (15:28)
[2017-08-30] MEDS ORDERED: LEVOFLOXACIN 750 MG/D5W RTU 750 MG/150 ML RTUPB IV ONE (15:28)
[2017-08-30] MEDS ORDERED: MORPHINE SULFATE 10 MG/ML INJ IV ONE (15:30)
--- NOTE | 2017-08-30 15:38 | ER Document Report ---
ED Extremity Problem, Lower - General Chief Complaint: Leg Swelling Stated Complaint: LEG PAIN/SWELLING Time Seen by Provider: 08/30/17 15:15 Notes: The patient is a 46-year-old male, past medical history diabetes, HIV, anxiety, chronic back pain, hypercholesterolemia, depression, history of cocaine and marijuana use, current smoker, presents with 1 day of vomiting that started last night and increasing left leg pain and swelling. He was admitted 3 weeks ago for left foot osteomyelitis and sepsis, where he received a fourth and fifth toe amputation and finished a course of Levaquin. He is also having fevers and chills and purulent drainage from his left foot. He denies abdominal pain, chest pain, shortness of breath, urinary symptoms, headache or neck stiffness. TRAVEL OUTSIDE OF THE [place] IN LAST 30 DAYS: No - Related Data Allergies/Adverse Reactions: Penicillins Allergy (Verified 08/18/17 21:04) rash Past Medical History - General Information source: Patient - Social History Smoking Status: Current Every Day Smoker Drug Abuse: Cocaine, Marijuana Family History: CAD, COPD, DM, Hyperlipidemia, Hypertension - Past Medical History Cardiac Medical History: Reports: Hx Coronary Artery Disease, Hx Heart Attack, Hx Hypercholesterolemia, Hx Hypertension, Hx Peripheral Vascular Disease, Hx Pulmonary Embolism Pulmonary Medical History: Reports: Hx Asthma, Hx COPD, Hx Pneumonia - 1 year ago Neurological Medical History: Reports: Hx Seizures - Patient had a seizure in 2012. Depakote stopped by his physician. Endocrine Medical History: Reports: Hx Diabetes Mellitus Type 1, Hx Diabetes Mellitus Type 2 - Patient is a poorly compliant, poorly controlled diabetic who uses insulin. Renal/ Medical History: Reports: Hx Renal Insufficiency. Denies: Hx Peritoneal Dialysis Malignancy Medical History: GI Medical History: Reports: Hx Hepatitis Musculoskeltal Medical History: Reports Hx Arthritis, Reports Hx Musculoskeletal Trauma Skin Medical History: Reports Hx MRSA Psychiatric Medical History: Reports: Hx Anxiety, Hx Bipolar Disorder, Hx Depression, Hx Post Traumatic Stress Disorder Traumatic Medical History: Reports: Hx Fractures - Knee pelvis and hand Infectious Medical History: Reports: Hx Hepatitis, Hx HIV - Patient reports no detectable viral count, Hx MRSA Past Surgical History: Reports: Hx Oral Surgery - Removal of most of teeth, Hx Orthopedic Surgery - right knee replacement, rt toe amputation; amputation 2 left toes., Other - Laser eye surgery PICC line placement, wound debridement - Immunizations Immunizations up to date: Yes Hx Diphtheria, Pertussis, Tetanus Vaccination: Yes Hx Pneumococcal Vaccination: 11/09/13 Review of Systems - Review of Systems Notes: REVIEW OF SYSTEMS: CONSTITUTIONAL: +fevers, +chills EENT: -eye pain, -difficulty swallowing, -nasal congestion CARDIOVASCULAR: -chest pain, -syncope. RESPIRATORY: -cough, -SOB GASTROINTESTINAL: -abdominal pain, +nausea, +vomiting, -diarrhea GENITOURINARY: -dysuria, -hematuria MUSCULOSKELETAL: +left foot pain and drainage from wound, -back pain, -neck pain SKIN: +left leg redness HEMATOLOGIC: -easy bruising or bleeding. LYMPHATIC: -swollen, enlarged glands. NEUROLOGICAL: -altered mental status or loss of consciousness, -headache, - neurologic symptoms PSYCHIATRIC: -anxiety, -depression. ALL OTHER SYSTEMS REVIEWED AND NEGATIVE. Physical Exam - Vital signs Vitals: Temp Pulse Resp BP Pulse Ox 100.1 F 101 H 16 133/81 H 96 08/30/17 15:19 08/30/17 15:19 08/30/17 15:19 08/30/17 15:19 08/30/17 15:19 - Notes Notes: PHYSICAL EXAMINATION: GENERAL: No acute distress. HEAD: Atraumatic, normocephalic. EYES: Pupils equal round and reactive to light, extraocular movements intact, sclera anicteric, conjunctiva are normal. ENT: nares patent, oropharynx clear without exudates. Moist mucous membranes. NECK: Normal range of motion, supple without lymphadenopathy LUNGS: Breath sounds clear to auscultation bilaterally and equal. No wheezes rales or rhonchi. HEART: Regular rate and rhythm without murmurs ABDOMEN: Soft, nontender, normoactive bowel sounds. No guarding, no rebound. No masses appreciated. EXTREMITIES: Left foot with partial amputation and a small amount of malodorous yellow drainage from surgical wound. Chronic venous stasis changes with mild swelling of left calf. NEUROLOGICAL: Cranial nerves grossly intact. Normal speech. Normal sensory and motor exams. PSYCH: Normal mood, normal affect. Course - Re-evaluation Re-evalutation: 08/30/17 16:53 Concern for infection of his surgical wound from his left foot partial amputation 1 month ago with surrounding cellulitis up his leg. Spoke to Dr. Stein (Surgicalist) and he is about to start a case, but will see patient as soon as he can. Antibiotics started. Patient has a history of AIDS (last CD4 count 164) and his WBC count is higher than his prior values. On arrival to the ER, he was slightly tachycardic and had an oral temperature of 100.1. Blood pressure is normal and lactate is normal. 08/30/17 18:43 Dr. Stein evaluated patient and thinks patient does not need any surgical debridement at this time. Pt remains afebrile and his slight tachycardia has resolved. BP remains normal. Looking through old records, patient's leg has similar appearance and is most likely related to his peripheral vascular disease. Without fever, leukocytosis, elevated lactate or change in his chronic appearance of his leg, do not suspect that patient has a life-threatening cellulitis or necrotizing fasciitis. Will place patient back on Levaquin due to antibiotic susceptibilities to the organism he grows and will have him follow with his primary care physician and wound care center this week as already scheduled. - Vital Signs Vital signs: Temp Pulse Resp BP Pulse Ox 100.1 F 101 H 12 137/99 H 99 08/30/17 15:19 08/30/17 15:19 08/30/17 19:01 08/30/17 19:00 08/30/17 19:01 - Laboratory Result Diagrams: 08/30/17 15:35 08/30/17 15:35 Laboratory results interpreted by me: 08/30/17 08/30/17 08/30/17 15:35 15:35 15:35 RBC 3.31 L Hgb 9.0 L Hct 25.9 L MCV 78 L RDW 16.2 H BUN 43 H Creatinine 1.85 H Est GFR ( Amer) 47 L Est GFR (Non-Af Amer) 39 L Glucose 214 H NT-Pro-B Natriuret Pep 197 H Urine Glucose (UA) 08/30/17 16:50 RBC Hgb Hct MCV RDW BUN Creatinine Est GFR ( Amer) Est GFR (Non-Af Amer) Glucose NT-Pro-B Natriuret Pep Urine Glucose (UA) >=500 H - Diagnostic Test Radiology reviewed: Image reviewed, Reports reviewed Radiology results interpreted by me: US LLE: No DVT. Foot x-ray: Stable chronic changes. CXR: NAD Discharge - Discharge Condition: Stable Disposition: HOME, SELF-CARE Additional Instructions: CELLULITIS: You have an infection of your skin and underlying soft tissues called cellulitis. This is due to bacteria, which can enter through any break in the skin, or even through an irritated hair follicle. Untreated, cellulitis will usually worsen. Antibiotics are required. Usually, warm packs or warm soaks, and elevation of the infected area are recommended. You should start getting better within 24 to 36 hours. Most infections respond quickly to the right medication. Follow-up care is important, however, to check for abscess (boil) formation, unsuspected foreign body, or resistant infection. If you develop fever, chills, or if the area of infection is becoming rapidly more swollen or painful, call the doctor at once. ANTIBIOTIC THERAPY: You have been given an antibiotic prescription. It's important that you take all the medication, unless instructed otherwise by your physician. Failure to complete the entire course can result in relapse of your condition. Common side effects of antibiotics include nausea, intestinal cramping, or diarrhea. Women may develop vaginal yeast infections, and babies can get yeast (thrush) in the mouth following the use of antibiotics. Contact your physician if you develop significant side effects from this medication. Allergy to this antibiotic can result in hives, wheezing, faintness, or itching. If symptoms of allergy occur, stop the medication and call the doctor. FOLLOW-UP CARE: If you have been referred to a physician for follow-up care, call the physician s office for an appointment as you were instructed or within the next two days. If you experience worsening or a significant change in your symptoms, notify the physician immediately or return to the Emergency Department at any time for re-evaluation. Vasculitis Vasculitis is an immune disease. An inflammation in the blood vessel ambrose is making them burst. It occurs as your body reacts to something in your blood stream. The most common causes are drugs and infection. The skin sores may look like hives at first, but they aren't usually itchy. Then each spot of rash develops a blackish bruise in it. The skin over the bump may even and form a scab. The disease can last two to four weeks. Return if you have severe headache, vomiting, abdominal pain, shortness of breath, blood in the urine, or if the rash becomes severe. Prescriptions: Levofloxacin [Levaquin 750 mg Tablet] 750 mg PO DAILY #10 tablet Referrals: DORIE QUINTEROS, UTILIZATION MANAGEMENT RN-C [Primary Care Provider] - Follow up as needed
[2017-08-30 15:58] LABS: ABSOLUTE BASOPHILS # (AUTO) 0.1 10^3/uL (0.0-0.2); ABSOLUTE EOSINOPHILS # (AUTO) 0.2 10^3/uL (0.0-0.6); ABSOLUTE LYMPHOCYTES (AUTO) 1.3 10^3/uL (0.5-4.7); ABSOLUTE MONOCYTES (AUTO) 0.9 10^3/uL (0.1-1.4); ABSOLUTE NEUT (AUTO) 5.3 10^3/uL (1.7-8.2); BASOPHILS % (AUTO) 1.3 % (0-2); EOSINOPHILS % (AUTO) 2.3 % (0-6); HEMATOCRIT 25.9 % (37.9-51.0); HGB HCT DIFFERENCE 1.1; LYMPHOCYTES % (AUTO) 16.3 % (13-45); MEAN CORPUSCULAR HEMOGLOBIN 27.1 pg (27.0-33.4); MEAN CORPUSCULAR HGB CONC 34.6 g/dL (32.0-36.0); MEAN CORPUSCULAR VOLUME 78 fl (80-97); RED BLOOD COUNT 3.31 10^6/uL (4.35-5.55); RED CELL DISTRIBUTION WIDTH 16.2 % (11.5-14.0); SEGMENTED NEUTROPHILS % (AUTO) 68.1 % (42-78); WHITE BLOOD COUNT 7.8 10^3/uL (4.0-10.5)
[2017-08-30 16:01] LABS: VENOUS BLOOD BASE EXCESS -1.3 mmol/L; VENOUS BLOOD HCO3 25.1 mmol/L (20-32); VENOUS BLOOD PCO2 48.2 mmHg (35-63); VENOUS BLOOD PH 7.33 (7.30-7.42)
[2017-08-30 16:22] LABS: ALANINE AMINOTRANSFERASE 22 U/L (21-72); ALBUMIN 3.7 g/dL (3.5-5.0); ALKALINE PHOSPHATASE 110 U/L (38-126); ANION GAP 13 (5-19); ASPARTATE AMINO TRANSFERASE 19 U/L (17-59); BILIRUBIN,DIRECT 0.3 mg/dL (0.0-0.4); BILIRUBIN,TOTAL 0.3 mg/dL (0.2-1.3); BLOOD UREA NITROGEN 43 mg/dL (7-20); CALCIUM 8.6 mg/dL (8.4-10.2); CARBON DIOXIDE 23 mmol/L (22-30); CHLORIDE 104 mmol/L (98-107); CREATINE KINASE 110 U/L (55-170); CREATININE RESULT 1.85 mg/dL (0.52-1.25); GLUCOSE 214 mg/dL (75-110); POTASSIUM 4.9 mmol/L (3.6-5.0); SODIUM 139.7 mmol/L (137-145); TOTAL PROTEIN 7.6 g/dL (6.3-8.2)
--- NOTE | 2017-08-30 16:29 | RADIOLOGY REPORT (SQ) ---
EXAM DESCRIPTION: FOOT LEFT COMPLETE COMPLETED DATE/TIME: 08/30/2017 4:14 pm REASON FOR STUDY: left foot discharge COMPARISON: 08/18/2017 NUMBER OF VIEWS: Three views. TECHNIQUE: AP, lateral and oblique radiographic images acquired of the left foot. LIMITATIONS: None. FINDINGS: MINERALIZATION: Bony structures are osteopenic. BONES: The previously described postoperative changes related to prior resections of the 2nd 3rd and 5th digits are again identified and appears stable. There is no plain film evidence for bony involve ment by osteomyelitis. JOINTS: Hallux valgus is again identified SOFT TISSUES: The previously described soft tissue swelling is again identified. OTHER: No other significant finding. IMPRESSION: Stable findings when correlated with the previous study. There is no plain film evidenc e for bony involvement by osteomyelitis. Other findings as noted above TECHNICAL DOCUMENTATION: JOB ID: [id number] All Rights Reserved
--- NOTE | 2017-08-30 16:30 | RADIOLOGY REPORT (SQ) ---
EXAM DESCRIPTION: CHEST SINGLE VIEW COMPLETED DATE/TIME: 08/30/2017 4:14 pm REASON FOR STUDY: fever, HIV COMPARISON: 07/16/2017 EXAM PARAMETERS: NUMBER OF VIEWS: One view. TECHNIQUE: Single frontal radiographic view of the chest acquired. RADIATION DOSE: NA LIMITATIONS: None. FINDINGS: LUNGS AND PLEURA: No opacities, masses or pneumothorax. No pleural effusion. MEDIASTINUM AND HILAR STRUCTURES: No masses. Contour normal. HEART AND VASCULAR STRUCTURES: Heart normal in size. Normal vasculature. BONES: No acute findings. HARDWARE: PICC line is no longer identified. OTHER: No other significant finding. IMPRESSION: NO ACUTE RADIOGRAPHIC FINDING IN THE CHEST. TECHNICAL DOCUMENTATION: JOB ID: [id number]
[2017-08-30 17:17] LABS: APPEARANCE,URINE CLEAR; BILIRUBIN,URINE NEGATIVE (NEGATIVE); GLUCOSE, URINE >=500 mg/dL (NEGATIVE); KETONES,URINE NEGATIVE (NEGATIVE); LEUKOCYTE ESTERASE,URINE NEGATIVE (NEGATIVE); NITRITE,URINE NEGATIVE (NEGATIVE); PROTEIN,URINE NEGATIVE (NEGATIVE); URINE SPECIFIC GRAVITY 1.006; UROBILINOGEN,URINE NEGATIVE mg/dL (<2.0)
[2017-08-30 17:31] LABS: URINE BARBITURATES SCREEN NEGATIVE; URINE METHADONE SCREEN NEGATIVE; URINE OPIATES LOW NEGATIVE; URINE PHENCYCLIDINE SCREEN NEGATIVE
--- NOTE | 2017-08-30 19:05 | PDOC CONSULTATION ---
Consultation Consult Date: 08/30/17 Attending physician:: MICHAEL ROBLES Consult reason:: Left foot wound History of Present Illness Admission Date/PCP: ANGEL EVANS Patient complains of: Left foot pain History of Present Illness: MILADYS LONDON III is a 46 year old male presents to the emergency department complaining of left foot pain. He was a patient here 3 weeks ago when he went underwent a left fourth and fifth toe amputation due to infection. He states that his leg has progressively gotten more swollen and tender over the past few days. Past Medical History Cardiac Medical History: Reports: Coronary Artery Disease, Myocardial Infarction , Hyperlipidema, Hypertension, Peripheral Vascular Disease, Pulmonary Embolism Pulmonary Medical History: Reports: Asthma, Chronic Obstructive Pulmonary Disease (COPD), Pneumonia - 1 year ago Neurological Medical History: Reports: Seizures - Patient had a seizure in 2012. Depakote stopped by his physician. Endocrine Medical History: Reports: Diabetes Mellitus Type 1, Diabetes Mellitus Type 2 - Patient is a poorly compliant, poorly controlled diabetic who uses insulin. Renal/ Medical History: Malignancy Medical History: GI Medical History: Reports: Hepatitis Musculoskeltal Medical History: Reports: Arthritis Musculoskeletal History Note: Status post amputation left fourth and fifth toes approximately 3 weeks ago. Psychiatric Medical History: Reports: Bipolar Disorder, Depression, Post Traumatic Stress Disorder Hematology: Reports: Anemia Infectious Medical History: Reports: HIV - Patient reports no detectable viral count, Methicillin-Resistant Staph Aureus Past Surgical History Past Surgical History: Reports: Orthopedic Surgery - right knee replacement, rt toe amputation; amputation 2 left toes., Other - Laser eye surgery PICC line placement, wound debridement Social History Smoking Status: Current Every Day Smoker Frequency of Alcohol Use: None Hx Recreational Drug Use: Yes Drugs: Cocaine, Marijuana Hx Prescription Drug Abuse: No Family History Family History: CAD, COPD, DM, Hyperlipidemia, Hypertension Parental Family History Reviewed: No Children Family History Reviewed: No Sibling(s) Family History Reviewed.: No Medication/Allergy Home Medications: Alprazolam [Xanax] 2 mg PO BID 06/08/17 Amitriptyline HCl [Elavil 25 mg Tablet] 25 mg PO DAILY 06/08/17 Aripiprazole [Abilify] 20 mg PO QPM 06/08/17 Atenolol [Tenormin 100 mg Tablet] 100 mg PO DAILY 06/08/17 Clonidine HCl [Catapres 0.1 mg Tablet] 0.1 mg PO Q12 06/08/17 Cyclobenzaprine HCl [Flexeril 10 mg Tablet] 10 mg PO TIDP PRN 06/08/17 Emtricitab/Rilpiviri/Tenof Ala [Odefsey Tablet] 1 each PO DAILY 06/08/17 Ergocalciferol (Vitamin D2) [Drisdol 50,000 unit (1.25MG) Capsule] 50,000 unit PO BARRON@1000 06/08/17 Fluoxetine HCl [Prozac] 40 mg PO DAILY 06/08/17 Fluticasone Propionate [Flonase Nasal [place] 50 Mcg/[place] 16 gm] 2 sprays NASL DAILY 06/08/17 Gabapentin [Neurontin 400 mg Capsule] 400 mg PO BID 06/08/17 Hydralazine HCl [Apresoline 50 mg Tablet] 50 mg PO Q8 06/08/17 Levocetirizine Dihydrochloride [Xyzal] 5 mg PO DAILYP PRN 06/08/17 Prazosin HCl [Minipress] 1 mg PO QHS 06/08/17 Simvastatin [Zocor 20 mg Tablet] 20 mg PO QHS 06/08/17 Sodium Polystyrene Sulfon/Sorb [Sps 15 gm/60 ml Suspension] 30 gm PO MO@1000 Zolpidem Tartrate [Ambien] 15 mg PO HSP PRN 06/08/17 Hydromorphone HCl [Dilaudid 2 mg Tablet] 4 mg PO Q2HP PRN #10 tablet 06/15/17 Sodium Bicarbonate [Sodium Bicarbonate 650 mg Tablet] 650 mg PO DAILY #30 tablet 06/15/17 Tramadol HCl 50 mg PO QID PRN #20 tablet 07/05/17 Flu Vacc [id number] 36Mos Up/Pf [Fluzone Adlt Quad [id number] Vac 0.5 ml Syr] 0.5 ml IM .DISCHARGE PRN disp.syrin 08/11/17 Insulin Glargine,Hum.rec.anlog [Lantus Insulin 100 Unit/1 ml 10 ml] 35 unit SUBCUT BID unit 08/11/17 Levofloxacin [Levaquin 750 mg Tablet] 750 mg PO DAILY #14 tablet 08/11/17 Oxycodone HCl [Oxy-Ir 5 mg Tablet] 10 mg PO Q4HP PRN #14 tablet 08/11/17 Torsemide [Demadex 20 mg Tablet] 20 mg PO DAILY #30 tablet 08/11/17 Allergies/Adverse Reactions: Penicillins Allergy (Verified 08/18/17 21:04) rash Physical Exam Vital Signs: Temp Pulse Resp BP Pulse Ox 100.1 F 101 H 14 144/98 H 96 08/30/17 15:19 08/30/17 15:19 08/30/17 17:01 08/30/17 17:00 08/30/17 17:01 General appearance: PRESENT: mild distress Head exam: PRESENT: atraumatic, normocephalic Extremities exam: PRESENT: other - Lateral lower extremity edema. Left leg has erythema and edema. On the foot laterally there is a large chronic wound which is granulating and has no evidence of necrosis. This wound is weeping fluid. Results Laboratory Results: 08/30/17 15:35 08/30/17 15:35 08/30/17 08/30/17 08/30/17 15:35 15:35 15:35 WBC 7.8 RBC 3.31 L Hgb 9.0 L Hct 25.9 L MCV 78 L MCH 27.1 MCHC 34.6 RDW 16.2 H Plt Count 262 Seg Neutrophils % 68.1 Lymphocytes % 16.3 Monocytes % 12.0 Eosinophils % 2.3 Basophils % 1.3 Absolute Neutrophils 5.3 Absolute Lymphocytes 1.3 Absolute Monocytes 0.9 Absolute Eosinophils 0.2 Absolute Basophils 0.1 VBG pH VBG pCO2 VBG HCO3 VBG Base Excess Sodium 139.7 Potassium 4.9 Chloride 104 Carbon Dioxide 23 Anion Gap 13 BUN 43 H Creatinine 1.85 H Est GFR ( Amer) 47 L Est GFR (Non-Af Amer) 39 L Glucose 214 H Lactic Acid 1.2 Calcium 8.6 Total Bilirubin 0.3 AST 19 ALT 22 Alkaline Phosphatase 110 Total Protein 7.6 Albumin 3.7 Urine Color Urine Appearance Urine pH Ur Specific [place] Urine Protein Urine Glucose (UA) Urine Ketones Urine Blood Urine Nitrite Ur Leukocyte Esterase Urine WBC (Auto) 08/30/17 08/30/17 15:35 16:50 WBC RBC Hgb Hct MCV MCH MCHC RDW Plt Count Seg Neutrophils % Lymphocytes % Monocytes % Eosinophils % Basophils % Absolute Neutrophils Absolute Lymphocytes Absolute Monocytes Absolute Eosinophils Absolute Basophils VBG pH 7.33 VBG pCO2 48.2 VBG HCO3 25.1 VBG Base Excess -1.3 Sodium Potassium Chloride Carbon Dioxide Anion Gap BUN Creatinine Est GFR ( Amer) Est GFR (Non-Af Amer) Glucose Lactic Acid Calcium Total Bilirubin AST ALT Alkaline Phosphatase Total Protein Albumin Urine Color STRAW Urine Appearance CLEAR Urine pH 5.0 Ur Specific [place] 1.006 Urine Protein NEGATIVE Urine Glucose (UA) >=500 H Urine Ketones NEGATIVE Urine Blood NEGATIVE Urine Nitrite NEGATIVE Ur Leukocyte Esterase NEGATIVE Urine WBC (Auto) 0 08/30/17 08/30/17 15:35 15:35 Creatine Kinase 110 NT-Pro-B Natriuret Pep 197 H Laboratory data reviewed. Impressions: Foot X-Ray 08/30/17 15:30 IMPRESSION: Stable findings when correlated with the previous study. There is no plain film evidence for bony involvement by osteomyelitis. Other findings as noted above Chest X-Ray 08/30/17 15:48 IMPRESSION: NO ACUTE RADIOGRAPHIC FINDING IN THE CHEST. Status: Image reviewed by me Assessment & Plan - Diagnosis (1) Osteomyelitis of left foot Qualifiers: Osteomyelitis type: other acute Qualified Code(s): M86.172 - Other acute osteomyelitis, left ankle and foot Plan: Discussed the patient with the ER physician. Wound is clean and does not need debridement. Wound is granulating. There is no necrosis. Patient is seeing the wound center. I recommend continuing current therapy for the wound. Recommend antibiotic treatment for probable ongoing osteomyelitis. No indication for surgery at this time. - Time Time Spent with patient: 30 minutes Time Spent: 30 to 50 Minutes Critical Time spent with patient: 25-34 minutes Anticipated discharge: Home Within: within 24 hours
[2017-08-30 20:27] VITALS: BP 147/96
--- NOTE | 2017-08-31 10:25 | XCELERA REPORT ---
[address] [address] Lower Extremity Venous Evaluation Name: MILADYS LONDON III Age: 46 yrs Gender: Male : 1970 Patient Status: Emergency Patient Location: ER Study Date: 08/30/2017 06:31 PM Procedure: Color flow and duplex imaging of the veins of the left lower extremity as well as the right Common Femoral vein. Reason For Study: LLE swelling Ordering Physician: MICHAEL ROBLES Performed By: Frandy Nathan Right Sided Venous Evaluation The right common femoral vein is fully compressible. Spontaneous and phasic flow is present in the right common femoral vein. Left Sided Venous Evaluation Normal vessel filling wall to wall, compression and augmentation as well as Colour flow down to the infrageniculate veins. Critical Findings Discussed with BARBIE Blood. Interpretation Summary No duplex evidence of DVT or obstruction in the left lower extremity nor in the right Common Femoral vein. : MICHAEL ROBLES > Delano Wray
== END 2017-08-30 21:06 | disposition home or self-care (01) ==
LOC: ER 15:12
DX: L03.119 Cellulitis of unspecified part of limb (principal); M79.89 Other specified soft tissue disorders; M79.605 Pain in left leg; E11.9 Type 2 diabetes mellitus without complications; B20 Human immunodeficiency virus [HIV] disease; F41.9 Anxiety disorder, unspecified; M54.9 Dorsalgia, unspecified; G89.29 Other chronic pain; E78.00 Pure hypercholesterolemia, unspecified; F32.9 Major depressive disorder, single episode, unspecified; F17.200 Nicotine dependence, unspecified, uncomplicated
CPT/HCPCS: 99284; 96375; 96365; 96366; 36415; 87040; 87070; 87205; 82550; 85025; 87077; 80053; 81001; 87186; 80307; 82803; 83605; 83880; 93971 ×2; 71010; 73630; A9270; J2270; J7030; J3370; J1956

== ENCOUNTER 2017-09-03 10:38 | Emergency (ER) | payer MEDICARE, MEDICAID ==
[2017-09-03 10:43] VITALS: BP 158/100
--- NOTE | 2017-09-03 11:54 | ER Document Report ---
ED Extremity Problem, Lower - General Chief Complaint: Foot Pain Stated Complaint: LEFT FOOT PAIN Time Seen by Provider: 09/03/17 11:31 Mode of Arrival: Ambulatory Information source: Patient Notes: 46-year-old male presents to ED for complaint of pain to his left foot. He had 2 toes removed about a month ago. He has diabetes peripheral vascular disease cardiac problems extensive medical history. He was seen on 08/28/2017 for the same same. He has a primary doctor and goes to the wound clinic for treatment of his wounds. TRAVEL OUTSIDE OF THE [place] IN LAST 30 DAYS: No - HPI Patient complains to provider of: Pain, Swelling Location: Foot, Leg Occurred: Other - Chronic Onset/Duration: Persistent Quality of pain: Sharp Severity: Severe Pain Level: 5 Context: Other - Chronic pain Recent injury: No Associated symptoms: Painful ambulation Exacerbated by: Movement, Walking Relieved by: Nothing - Related Data Allergies/Adverse Reactions: Penicillins Allergy (Verified 09/03/17 10:43) rash Past Medical History - General Information source: Patient - Social History Smoking Status: Former Smoker - States he quit smoking about 6 months ago Chew tobacco use (# tins/day): No Frequency of alcohol use: None - States he quit using alcohol about 6 months to a year ago Drug Abuse: None - States he quit using marijuana and cocaine about 6 months ago it is now the end of August 2017 Occupation: Disabled Lives with: Alone Family History: Arthritis, CAD, COPD, CVA, DM, Hyperlipidemia, Hypertension. denies: Malignancy, Thyroid Disfunction Patient has suicidal ideation: No Patient has homicidal ideation: No - Past Medical History Cardiac Medical History: Reports: Hx Coronary Artery Disease, Hx Heart Attack, Hx Hypercholesterolemia, Hx Hypertension, Hx Peripheral Vascular Disease, Hx Pulmonary Embolism Pulmonary Medical History: Reports: Hx Asthma, Hx COPD, Hx Pneumonia - 1 year ago EENT Medical History: Reports: None Neurological Medical History: Reports: Hx Seizures - Patient had a seizure in 2012. Depakote stopped by his physician. Endocrine Medical History: Reports: Hx Diabetes Mellitus Type 2 - Patient is a poorly compliant, poorly controlled diabetic who uses insulin. Renal/ Medical History: Reports: Hx Renal Insufficiency Malignancy Medical History: Reports None GI Medical History: Reports: None Musculoskeltal Medical History: Reports Hx Arthritis, Reports Hx Musculoskeletal Deformity, Reports Hx Musculoskeletal Trauma Skin Medical History: Reports Hx MRSA Psychiatric Medical History: Reports: Hx Anxiety, Hx Bipolar Disorder, Hx Depression, Hx Post Traumatic Stress Disorder Traumatic Medical History: Reports: Hx Fractures - Knee pelvis and hand Infectious Medical History: Reports: Hx HIV - Patient reports no detectable viral count, Hx MRSA Past Surgical History: Reports: Hx Oral Surgery - Removal of most of teeth, Hx Orthopedic Surgery - right knee replacement, rt toe amputation; amputation 2 left toes., Other - Laser eye surgery PICC line placement, wound debridement - Immunizations Immunizations up to date: Yes Hx Diphtheria, Pertussis, Tetanus Vaccination: Yes Hx Pneumococcal Vaccination: 11/09/13 Review of Systems - Review of Systems Constitutional: No symptoms reported EENT: No symptoms reported Cardiovascular: No symptoms reported Respiratory: No symptoms reported Gastrointestinal: No symptoms reported Genitourinary: No symptoms reported Male Genitourinary: No symptoms reported Musculoskeletal: Ankle swelling Skin: Other - Open wound to his left foot where his with the fifth toe were amputated minimal drainage no signs of infection at this time Hematologic/Lymphatic: No symptoms reported Neurological/Psychological: No symptoms reported -: Yes All other systems reviewed and negative Physical Exam - Vital signs Vitals: Temp Pulse Resp BP Pulse Ox 97.3 F 90 18 158/100 H 99 09/03/17 10:40 09/03/17 10:40 09/03/17 10:40 09/03/17 10:40 09/03/17 10:40 Interpretation: Normal - General General appearance: Appears well, Alert - HEENT Head: Normocephalic, Atraumatic Eyes: Normal Pupils: PERRL - Respiratory Respiratory status: No respiratory distress Chest status: Nontender Breath sounds: Normal Chest palpation: Normal - Cardiovascular Rhythm: Regular Heart sounds: Normal auscultation Murmur: No - Abdominal Inspection: Normal Distension: No distension Bowel sounds: Normal Tenderness: Nontender Organomegaly: No organomegaly - Back Back: Normal, Nontender - Extremities General upper extremity: Normal inspection, Nontender, Normal color, Normal ROM , Normal temperature General lower extremity: Normal color, Normal ROM, Normal temperature, Normal weight bearing. No: Nikolay's sign Ankle: Edema Foot: Tender, Edema, No evidence of FB, Other - Open wound to the area where the fourth and fifth toe would be from his amputation. Scar tissue noted no signs of infection - Neurological Neuro grossly intact: Yes Cognition: Normal Orientation: AAOx4 Noemy Coma Scale Eye Opening: Spontaneous [place] Coma Scale Verbal: Oriented [place] Coma Scale Motor: Obeys Commands Noemy Coma Scale Total: 15 Speech: Normal Motor strength normal: LUE, RUE, LLE, RLE Sensory: Normal - Psychological Associated symptoms: Normal affect, Normal mood - Skin Skin Temperature: Warm Skin Moisture: Dry Skin Color: Normal Location of irregularity: Extremities - Left foot at the area of the fourth and fifth toe eschar tissue noted other tissue red no proud flesh no signs of active infection Irregularity with: Tenderness Course - Re-evaluation Re-evalutation: 09/03/17 21:35 Dressing change to his foot wound. No signs of acute infection. Patient instructed to follow-up with the wound clinic and his primary doctor and he can change her care as prescribed. - Vital Signs Vital signs: Temp Pulse Resp BP Pulse Ox 97.3 F 90 18 158/100 H 99 09/03/17 10:40 09/03/17 10:40 09/03/17 10:40 09/03/17 10:40 09/03/17 10:40 Discharge - Discharge Clinical Impression: Chronic pain in left foot, bilateral pedal edema chronic Condition: Stable Disposition: HOME, SELF-CARE Additional Instructions: Chronic Pain Control Stress, inactivity, and depression make pain more severe regardless of the cause of the pain. Stress and poor physical condition can cause pain such as headaches and backache. Relaxation: Rest in a quiet place with your eyes closed for 20 minutes twice daily. Concentrate on a pleasant image, or simply "feel" your breathing. Clear your mind. Stress management: Deal with your "stressors." Either take action, or eliminate the stressor from your life. Don't let things hang over you. Accept those things you can't change. Nutrition: Eat small, balanced meals -- don't skip, don't overeat. Meals should be high-carbohydrate, low-sugar, low-fat. Exercise: Exercise helps painful conditions and eases stress. Get 30 minutes of moderate exercise, five days a week. Do an activity that does not flare your pain. Precautions: Pain which continues to disrupt daily activities, or which changes in nature, requires a medical evaluation. Pain Clinic referral is available. We do not manage chronic pain in the Emergency Department. 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 We do not provide repeated medication management of chronic painful conditions. If you wish, we can provide the name of local pain management physicians. Edema, Peripheral You have swelling in your legs. This is called peripheral edema. It can be caused by "leaky capillaries," inflammation, disease of the leg veins, or excess salt and water in your body. Edema may be a sign of heart, kidney, or liver disease. A medical evaluation can determine if there is a serious underlying cause for your edema. Avoid prolonged standing. If you must sit for a long time, occasionally get up and walk around or elevate your legs. Support stockings can be helpful in limiting swelling. Often diuretic or water pills are used to remove excess salt and water from your body. Call the doctor or return if you develop increased swelling, pain, or redness, shortness of breath, chest pain, or any other significant change. These continue dressing changes as ordered, follow-up with your primary doctor and you wound care doctor. I have given you instructions on chronic pain and we do not give narcotics for chronic pain. Keep your legs elevated as this will decrease the pain pressure and swelling. FOLLOW-UP CARE: If you have been referred to a physician for follow-up care, call the physician s office for an appointment as you were instructed or within the next two days. If you experience worsening or a significant change in your symptoms, notify the physician immediately or return to the Emergency Department at any time for re-evaluation. Referrals: DORIE QUINTEROS, ALBERT-C [Primary Care Provider] - Follow up as needed
== END 2017-09-03 12:05 | disposition home or self-care (01) ==
LOC: ER 10:38
DX: R60.9 Edema, unspecified (principal); G89.29 Other chronic pain; M79.672 Pain in left foot; I25.10 Atherosclerotic heart disease of native coronary artery without angina pectoris; E78.00 Pure hypercholesterolemia, unspecified; I10 Essential (primary) hypertension; E11.9 Type 2 diabetes mellitus without complications; Z87.891 Personal history of nicotine dependence; Z86.711 Personal history of pulmonary embolism; Z86.14 Personal history of Methicillin resistant Staphylococcus aureus infection; Z21 Asymptomatic human immunodeficiency virus [HIV] infection status; I25.2 Old myocardial infarction
CPT/HCPCS: 99283

== ENCOUNTER 2017-09-30 12:54 | Emergency (ER) | payer MEDICARE, MEDICAID ==
[2017-09-30 13:09] VITALS: BP 170/103
--- NOTE | 2017-09-30 13:47 | ER Document Report ---
ED General - General Chief Complaint: Hip Pain Stated Complaint: HIP PAIN Time Seen by Provider: 09/30/17 13:37 Notes: Patient is a 47-year-old male who presents emergency department complaining of left hip pain with concerns of his left foot. Past medical history significant for insulin-dependent diabetes, HIV, chronic kidney disease stage III. Patient states that he was recently discharged from [facility] earlier this week. He states that he had a amputation for toes and part of his left foot over the summer and has been ended the hospital for this. States that he has difficulty walking sometimes last night he lost his balance going up some stairs and landed on his left hip. He admits to left hip and low back pain. States he has been able to walk since his injury. Denies any pain in the anterior aspect of his hip or his left femur. Regarding his foot he does admit that he has not been able to take his antibiotics in intermediate or follow-up with wound clinic. Otherwise he states that he has had some foul odorous drainage from his foot but that does not hurt any worse than normal. Primary care is Dr. López was met first. TRAVEL OUTSIDE OF THE [place] IN LAST 30 DAYS: No - Related Data Allergies/Adverse Reactions: Penicillins Allergy (Verified 09/03/17 10:43) rash Past Medical History - Social History Smoking Status: Current Every Day Smoker Chew tobacco use (# tins/day): No Frequency of alcohol use: None Drug Abuse: Cocaine Family History: Arthritis, CAD, COPD, CVA, DM, Hyperlipidemia, Hypertension. denies: Malignancy, Thyroid Disfunction Patient has suicidal ideation: No Patient has homicidal ideation: No - Past Medical History Cardiac Medical History: Reports: Hx Coronary Artery Disease, Hx Heart Attack, Hx Hypercholesterolemia, Hx Hypertension, Hx Peripheral Vascular Disease, Hx Pulmonary Embolism Pulmonary Medical History: Reports: Hx Asthma, Hx COPD, Hx Pneumonia - 1 year ago Neurological Medical History: Reports: Hx Seizures - Patient had a seizure in 2012. Depakote stopped by his physician. Endocrine Medical History: Reports: Hx Diabetes Mellitus Type 1, Hx Diabetes Mellitus Type 2 - Patient is a poorly compliant, poorly controlled diabetic who uses insulin. Renal/ Medical History: Reports: Hx Renal Insufficiency. Denies: Hx Peritoneal Dialysis Malignancy Medical History: GI Medical History: Musculoskeltal Medical History: Reports Hx Arthritis, Reports Hx Musculoskeletal Deformity, Reports Hx Musculoskeletal Trauma Skin Medical History: Reports Hx MRSA Psychiatric Medical History: Reports: Hx Anxiety, Hx Bipolar Disorder, Hx Depression, Hx Post Traumatic Stress Disorder Traumatic Medical History: Reports: Hx Fractures - Knee pelvis and hand Infectious Medical History: Reports: Hx HIV - Patient reports no detectable viral count, Hx MRSA Past Surgical History: Reports: Hx Oral Surgery - Removal of most of teeth, Hx Orthopedic Surgery - right knee replacement, rt toe amputation; amputation 2 left toes., Other - Laser eye surgery PICC line placement, wound debridement - Immunizations Immunizations up to date: Yes Hx Diphtheria, Pertussis, Tetanus Vaccination: Yes Hx Pneumococcal Vaccination: 11/09/13 Review of Systems - Review of Systems Constitutional: No symptoms reported Cardiovascular: No symptoms reported Respiratory: No symptoms reported Gastrointestinal: No symptoms reported Musculoskeletal: See HPI Skin: See HPI Neurological/Psychological: No symptoms reported -: Yes All other systems reviewed and negative Physical Exam - Vital signs Vitals: Temp Pulse Resp BP Pulse Ox 98.6 F 95 18 170/103 H 99 09/30/17 13:06 09/30/17 13:06 09/30/17 13:06 09/30/17 13:06 09/30/17 13:06 - Notes Notes: PHYSICAL EXAM GENERAL: Alert, interacts well. LUNGS: Clear to auscultation bilaterally, no wheezes, rales, or rhonchi. No respiratory distress. HEART: Regular rate and rhythm. No murmurs, gallops, or rubs. ABDOMEN: Soft, nondistended, nontender. No guarding, rebound, or rigidity.. Bowel sounds present in all 4 quadrants. EXTREMITIES: Moves all 4 extremities spontaneously. No edema, radial and dorsalis pedis pulses 2/4 bilaterally. No cyanosis. Back: Left paralumbar muscular tenderness with pain reproducible to palpation. No evidence of spinous process tenderness, step-offs or deformities left lower extremity with full range of motion of the hip without any pain. NEUROLOGICAL: Alert and oriented x4. Normal speech. PSYCH: Normal affect, normal mood. SKIN: Warm, dry, normal turgor. No rashes or lesions noted. Left foot with evidence of chronic healing wound from previous amputation with continued drainage and evidence of some granulation and without evidence of active purulent drainage Course - Re-evaluation Re-evalutation: 09/30/17 14:51 Patient is a 47-year-old male who is hemodynamically stable, no acute distress afebrile. Patient able to ambulate without difficulty therefore hip fracture low suspicion. No evidence of fracture pelvis on x-ray. Otherwise symptoms are consistent with a contusion. Regarding the patient's foot evidence of osteomyelitis of the fifth metatarsal. Dr. Nu ames in the ED 09/30/17 15:50 Surgeon consult in the ED does not recommend hospital admission and can continue to take p.o. antibiotics. Otherwise patient is to follow-up with the wound care clinic on Thursday for a scheduled appointment to be determined. Discussed with him to follow-up with his primary care doctor for wound checks and for antibiotics until he is able to reinstate his scheduled wound care. Patient agrees with plan. Stable for discharge home given strict return precautions. - Vital Signs Vital signs: Temp Pulse Resp BP Pulse Ox 98.6 F 95 18 170/103 H 99 09/30/17 13:06 09/30/17 13:06 09/30/17 13:06 09/30/17 13:06 09/30/17 13:06 - Laboratory Result Diagrams: 09/30/17 14:22 Laboratory results interpreted by me: 09/30/17 14:22 RBC 4.33 L Hgb 11.2 L Hct 34.7 L MCH 25.9 L RDW 17.9 H - Diagnostic Test Radiology reviewed: Image reviewed, Reports reviewed Discharge - Discharge Clinical Impression: Osteomyelitis of toe of left foot Fall Qualifiers: Encounter type: initial encounter Qualified Code(s): W19.XXXA - Unspecified fall, initial encounter Condition: Stable Disposition: HOME, SELF-CARE Instructions: Contusion ([facility]), Osteomyelitis ([facility]) Additional Instructions: Your foot still shows signs concerning for osteomyelitis which is infection of the bone. Please take your antibiotics as prescribed and follow up with the wound clinic as soon as possible Regarding your fall, there is no evidence of fracture any x-rays. You are suffering from a contusion which is deep muscle bruising. You can treat this with ice, heat and Tylenol. Prescriptions: Levofloxacin [Levaquin 750 mg Tablet] 750 mg PO DAILY #20 tab Referrals: Wound Care [Provider Group] - 10/05/17 (Call on Thursday) ANDREIA LÓPEZ MD [COMMUNITY BASED STAFF] - Follow up in 3-5 days (For wound check until you resume care with Wound Clinic)
[2017-09-30 14:33] LABS: ABSOLUTE BASOPHILS # (AUTO) 0.1 10^3/uL (0.0-0.2); ABSOLUTE EOSINOPHILS # (AUTO) 0.1 10^3/uL (0.0-0.6); ABSOLUTE LYMPHOCYTES (AUTO) 1.6 10^3/uL (0.5-4.7); BASOPHILS % (AUTO) 0.9 % (0-2); EOSINOPHILS % (AUTO) 1.4 % (0-6); HEMATOCRIT 34.7 % (37.9-51.0); HEMOGLOBIN 11.2 g/dL (13.5-17.0); HGB HCT DIFFERENCE -1.1; LYMPHOCYTES % (AUTO) 18.5 % (13-45); MEAN CORPUSCULAR HEMOGLOBIN 25.9 pg (27.0-33.4); MEAN CORPUSCULAR HGB CONC 32.3 g/dL (32.0-36.0); MEAN CORPUSCULAR VOLUME 80 fl (80-97); MONOCYTES % (AUTO) 11.7 % (3-13); RED BLOOD COUNT 4.33 10^6/uL (4.35-5.55); RED CELL DISTRIBUTION WIDTH 17.9 % (11.5-14.0); SEGMENTED NEUTROPHILS % (AUTO) 67.5 % (42-78); WHITE BLOOD COUNT 8.8 10^3/uL (4.0-10.5)
--- NOTE | 2017-09-30 14:40 | RADIOLOGY REPORT (SQ) ---
EXAM DESCRIPTION: PELVIS AP COMPLETED DATE/TIME: 09/30/2017 2:28 pm REASON FOR STUDY: fall, left hip pain COMPARISON: None. NUMBER OF VIEWS: One view TECHNIQUE: AP Pelvis LIMITATIONS: AP pelvis film only, no frogleg view left hip FINDINGS: MINERALIZATION: Normal. HIPS: No acute fracture or dislocation. No worrisome bone lesions. Very mild right hip joint space n arrowing with acetabular roof sclerosis. PELVIS AND SACRUM: No acute fracture or dislocation. No worrisome bone lesions. PUBIS AND ISCHIUM: No acute fracture. LOWER LUMBAR SPINE: No significant findings as visualized. SOFT TISSUES: No findings. OTHER: No other significant finding. IMPRESSION: No acute fracture TECHNICAL DOCUMENTATION: JOB ID: [id number] [employer]- All Rights Reserved
--- NOTE | 2017-09-30 14:45 | RADIOLOGY REPORT (SQ) ---
EXAM DESCRIPTION: FOOT LEFT COMPLETE COMPLETED DATE/TIME: 09/30/2017 2:28 pm REASON FOR STUDY: open wound from previous amputation, eval for OM COMPARISON: 04/24/2017, 04/14/2017, 04/07/2017 NUMBER OF VIEWS: Three views. TECHNIQUE: AP, lateral and oblique radiographic images acquired of the left foot. LIMITATIONS: None. FINDINGS: Since the prior films 04/24/2017, patient has undergone amputation of the 5th toe, with ost eotomy along the distal half of the 5th metatarsal. Adjacent to the 5th metatarsal osteotomy site, an ulceration is present measuring about 1.5 cm in jae meter. There is periosteal new bone formation along the 5th metatarsal diaphysis, and bony resorptio n of the distal aspect 5th metatarsal at the osteotomy site. Findings are worrisome for osteomyeliti s. Patient is post transmetatarsal amputation of the 2nd and 3rd toes. Well corticated bone fragments a re present adjacent to the osteotomies. No aggressive bony demineralization or fluffy periosteal new bone in these areas worrisome for current osteomyelitis at the 2nd and 3rd osteotomies. There is diffuse forefoot soft tissue swelling without soft tissue gas. Advanced left great toe hallux valgus deformity. Remainder of the foot grossly unremarkable aside from osteoarthritis at the 2nd through 5th tarsometa tarsal joint IMPRESSION: Left foot soft tissue ulcer at the 5th metatarsal osteotomy site, 5th metatarsal periost eal new bone and aggressive bony erosion at the osteotomy site worrisome for osteomyelitis TECHNICAL DOCUMENTATION: JOB ID: [id number] [employer]- All Rights Reserved
[2017-09-30] MEDS ORDERED: OXYCODONE-ACETAMINOPHEN 5-325 MG TABLET PO ONE (14:51)
[2017-09-30] MEDS ORDERED: LEVOFLOXACIN 750 MG TABLET PO ONE (15:44)
--- NOTE | 2017-09-30 21:31 | PDOC CONSULTATION ---
Consultation Consult Date: 09/30/17 Attending physician:: ARTHUR NELSON Consult reason:: evaluate diabetic left foot ulcer History of Present Illness History of Present Illness: MILADYS LONDON III is a 47 year old male with DM and HIV who has had amputations and debridements of his lkeft foot. He was also treated for osteomyelitis.He was temporarily lost to follow up when he went to assisted recently. he came to ER to be evaluated for a fall yesterday but hsa no injuries. The ER Provider however asked me to evaluate the chronic left foot ulcer for possible infection. The patient has no subjective complaints in the left foot. Past Medical History Cardiac Medical History: Reports: Coronary Artery Disease, Myocardial Infarction , Hyperlipidema, Hypertension, Peripheral Vascular Disease, Pulmonary Embolism Pulmonary Medical History: Reports: Asthma, Chronic Obstructive Pulmonary Disease (COPD), Pneumonia - 1 year ago Neurological Medical History: Reports: Seizures - Patient had a seizure in 2012. Depakote stopped by his physician. Endocrine Medical History: Reports: Diabetes Mellitus Type 1, Diabetes Mellitus Type 2 - Patient is a poorly compliant, poorly controlled diabetic who uses insulin. Renal/ Medical History: Malignancy Medical History: GI Medical History: Musculoskeltal Medical History: Reports: Arthritis Psychiatric Medical History: Reports: Bipolar Disorder, Depression, Post Traumatic Stress Disorder Hematology: Reports: Anemia Infectious Medical History: Reports: HIV - Patient reports no detectable viral count, Methicillin-Resistant Staph Aureus Past Surgical History Past Surgical History: Reports: Orthopedic Surgery - right knee replacement, rt toe amputation; amputation 2 left toes., Other - Laser eye surgery PICC line placement, wound debridement Social History Smoking Status: Current Every Day Smoker Frequency of Alcohol Use: None Hx Recreational Drug Use: Yes Drugs: Cocaine, Marijuana Hx Prescription Drug Abuse: No Family History Family History: Arthritis, CAD, COPD, CVA, DM, Hyperlipidemia, Hypertension. denies: Malignancy, Thyroid Disfunction Parental Family History Reviewed: No Children Family History Reviewed: No Sibling(s) Family History Reviewed.: No Medication/Allergy Home Medications: Alprazolam [Xanax] 2 mg PO BID 06/08/17 Amitriptyline HCl [Elavil 25 mg Tablet] 25 mg PO DAILY 06/08/17 Aripiprazole [Abilify] 20 mg PO QPM 06/08/17 Atenolol [Tenormin 100 mg Tablet] 100 mg PO DAILY 06/08/17 Clonidine HCl [Catapres 0.1 mg Tablet] 0.1 mg PO Q12 06/08/17 Cyclobenzaprine HCl [Flexeril 10 mg Tablet] 10 mg PO TIDP PRN 06/08/17 Emtricitab/Rilpiviri/Tenof Ala [Odefsey Tablet] 1 each PO DAILY 06/08/17 Ergocalciferol (Vitamin D2) [Drisdol 50,000 unit (1.25MG) Capsule] 50,000 unit PO BARRON@1000 06/08/17 Fluoxetine HCl [Prozac] 40 mg PO DAILY 06/08/17 Fluticasone Propionate [Flonase Nasal Reydon 50 Mcg/Reydon 16 gm] 2 sprays NASL DAILY 06/08/17 Gabapentin [Neurontin 400 mg Capsule] 400 mg PO BID 06/08/17 Hydralazine HCl [Apresoline 50 mg Tablet] 50 mg PO Q8 06/08/17 Levocetirizine Dihydrochloride [Xyzal] 5 mg PO DAILYP PRN 06/08/17 Prazosin HCl [Minipress] 1 mg PO QHS 06/08/17 Simvastatin [Zocor 20 mg Tablet] 20 mg PO QHS 06/08/17 Sodium Polystyrene Sulfon/Sorb [Sps 15 gm/60 ml Suspension] 30 gm PO MO@1000 Zolpidem Tartrate [Ambien] 15 mg PO HSP PRN 06/08/17 Hydromorphone HCl [Dilaudid 2 mg Tablet] 4 mg PO Q2HP PRN #10 tablet 06/15/17 Sodium Bicarbonate [Sodium Bicarbonate 650 mg Tablet] 650 mg PO DAILY #30 tablet 06/15/17 Tramadol HCl 50 mg PO QID PRN #20 tablet 07/05/17 Flu Vacc [id number] [id number] Up/Pf [Fluzone Adlt Quad [id number] Vac 0.5 ml Syr] 0.5 ml IM .DISCHARGE PRN disp.syrin 08/11/17 Insulin Glargine,Hum.rec.anlog [Lantus Insulin 100 Unit/1 ml 10 ml] 35 unit SUBCUT BID unit 08/11/17 Levofloxacin [Levaquin 750 mg Tablet] 750 mg PO DAILY #14 tablet 08/11/17 Oxycodone HCl [Oxy-Ir 5 mg Tablet] 10 mg PO Q4HP PRN #14 tablet 08/11/17 Torsemide [Demadex 20 mg Tablet] 20 mg PO DAILY #30 tablet 08/11/17 Levofloxacin [Levaquin 750 mg Tablet] 750 mg PO DAILY #10 tablet 08/30/17 Levofloxacin [Levaquin 750 mg Tablet] 750 mg PO DAILY #20 tab 09/30/17 Allergies/Adverse Reactions: Penicillins Allergy (Verified 09/03/17 10:43) rash Physical Exam Vital Signs: Temp Pulse Resp BP Pulse Ox 98.6 F 95 18 170/103 H 99 09/30/17 13:06 09/30/17 13:06 09/30/17 13:06 09/30/17 13:06 09/30/17 13:06 Intake & Output 09/29/17 09/30/17 10/01/17 06:59 06:59 06:59 Weight 111.6 kg General appearance: PRESENT: no acute distress Head exam: PRESENT: atraumatic Eye exam: PRESENT: conjunctiva pink Mouth exam: PRESENT: neck supple Respiratory exam: PRESENT: clear to auscultation vanessa Cardiovascular exam: PRESENT: RRR, +S1, +S2 GI/Abdominal exam: PRESENT: normal bowel sounds, soft. ABSENT: distended, guarding, mass, organolmegaly, rebound, tenderness Extremities exam: PRESENT: other - Left foot has amputation of the 4th and 5th toes. there is healthy-appearing granulating wound at the amputation site, no drainage; Neurological exam: PRESENT: alert, oriented to person, oriented to place, oriented to time, CN II-XII grossly intact Results Laboratory Results: 09/30/17 14:22 09/30/17 14:22 WBC 8.8 RBC 4.33 L Hgb 11.2 L Hct 34.7 L MCV 80 MCH 25.9 L MCHC 32.3 RDW 17.9 H Plt Count 326 Seg Neutrophils % 67.5 Lymphocytes % 18.5 Monocytes % 11.7 Eosinophils % 1.4 Basophils % 0.9 Absolute Neutrophils 6.0 Absolute Lymphocytes 1.6 Absolute Monocytes 1.0 Absolute Eosinophils 0.1 Absolute Basophils 0.1 Impressions: Foot X-Ray 09/30/17 13:46 IMPRESSION: Left foot soft tissue ulcer at the 5th metatarsal osteotomy site, 5th metatarsal periosteal new bone and aggressive bony erosion at the osteotomy site worrisome for osteomyelitis Pelvis X-Ray 09/30/17 13:46 IMPRESSION: No acute fracture Assessment & Plan - Diagnosis (1) Diabetic infection of left foot Plan: The left foot ulcer looks clean Follow up in the wound clinic
== END 2017-09-30 16:32 | disposition home or self-care (01) ==
LOC: ER 12:54
DX: M86.8X7 Other osteomyelitis, ankle and foot (principal); M25.552 Pain in left hip; M79.672 Pain in left foot; E11.9 Type 2 diabetes mellitus without complications; B20 Human immunodeficiency virus [HIV] disease; N18.3 Chronic kidney disease, stage 3 (moderate); F17.200 Nicotine dependence, unspecified, uncomplicated; W19.XXXA Unspecified fall, initial encounter
CPT/HCPCS: 99284; 36415; 85025; 73630; 72170; A9270 ×2

== ENCOUNTER 2017-10-11 14:04 | Inpatient (IN) | payer MEDICARE, MEDICAID ==
[2017-10-11] MEDS ORDERED: ASPIRIN 81 MG TABLET, CHEWABLE PO ONE (14:31)
[2017-10-11] MEDS ORDERED: INSULIN REG, HUMAN 100 UNIT/ML 3 ML VIAL (PYX) SUBCUT ONE (14:53)
[2017-10-11] MEDS ORDERED: NORMAL SALINE 1000 ML 1,000 ML IV ONE (14:54)
[2017-10-11 15:08] LABS: ABSOLUTE BASOPHILS # (AUTO) 0.1 10^3/uL (0.0-0.2); ABSOLUTE EOSINOPHILS # (AUTO) 0.1 10^3/uL (0.0-0.6); ABSOLUTE LYMPHOCYTES (AUTO) 1.2 10^3/uL (0.5-4.7); ABSOLUTE MONOCYTES (AUTO) 0.6 10^3/uL (0.1-1.4); ABSOLUTE NEUT (AUTO) 4.7 10^3/uL (1.7-8.2); EOSINOPHILS % (AUTO) 1.5 % (0-6); HEMATOCRIT 35.1 % (37.9-51.0); HEMOGLOBIN 11.5 g/dL (13.5-17.0); HGB HCT DIFFERENCE -0.6; LYMPHOCYTES % (AUTO) 17.5 % (13-45); MEAN CORPUSCULAR HEMOGLOBIN 26.2 pg (27.0-33.4); MEAN CORPUSCULAR HGB CONC 32.9 g/dL (32.0-36.0); MEAN CORPUSCULAR VOLUME 80 fl (80-97); MONOCYTES % (AUTO) 9.1 % (3-13); SEGMENTED NEUTROPHILS % (AUTO) 70.9 % (42-78); WHITE BLOOD COUNT 6.6 10^3/uL (4.0-10.5)
[2017-10-11 15:23] LABS: ALANINE AMINOTRANSFERASE 15 U/L (21-72); ALBUMIN 4.1 g/dL (3.5-5.0); ALKALINE PHOSPHATASE 146 U/L (38-126); ANION GAP 15 (5-19); ASPARTATE AMINO TRANSFERASE 24 U/L (17-59); BILIRUBIN,DIRECT 0.5 mg/dL (0.0-0.4); BILIRUBIN,TOTAL 0.8 mg/dL (0.2-1.3); BLOOD UREA NITROGEN 24 mg/dL (7-20); CALCIUM 9.3 mg/dL (8.4-10.2); CARBON DIOXIDE 23 mmol/L (22-30); CHLORIDE 98 mmol/L (98-107); CREATINE KINASE 208 U/L (55-170); CREATININE RESULT 1.59 mg/dL (0.52-1.25); POTASSIUM 5.3 mmol/L (3.6-5.0); SODIUM 135.5 mmol/L (137-145); TOTAL PROTEIN 8.1 g/dL (6.3-8.2)
[2017-10-11 15:34] LABS: CREATINE KINASE MB 1.49 ng/mL (<4.55)
--- NOTE | 2017-10-11 15:43 | RADIOLOGY REPORT (SQ) ---
EXAM DESCRIPTION: CHEST SINGLE VIEW COMPLETED DATE/TIME: 10/11/2017 3:22 pm REASON FOR STUDY: bed 18 cp COMPARISON: 08/30/2017 EXAM PARAMETERS: NUMBER OF VIEWS: One view. TECHNIQUE: Single frontal radiographic view of the chest acquired. RADIATION DOSE: NA LIMITATIONS: None. FINDINGS: LUNGS AND PLEURA: No opacities, masses or pneumothorax. No pleural effusion. MEDIASTINUM AND HILAR STRUCTURES: No masses. Contour normal. HEART AND VASCULAR STRUCTURES: Heart normal in size. Normal vasculature. BONES: No acute findings. HARDWARE: None in the chest. OTHER: No other significant finding. IMPRESSION: NO ACUTE RADIOGRAPHIC FINDING IN THE CHEST. TECHNICAL DOCUMENTATION: JOB ID: [id number] [employer]- All Rights Reserved
[2017-10-11 15:45] LABS: GLUCOSE 412 mg/dL (75-110); TROPONIN I < 0.012 ng/mL
--- NOTE | 2017-10-11 15:48 | RADIOLOGY REPORT (SQ) ---
EXAM DESCRIPTION: FOOT LEFT COMPLETE COMPLETED DATE/TIME: 10/11/2017 3:22 pm REASON FOR STUDY: diabetic Gangreene COMPARISON: 09/30/2017 NUMBER OF VIEWS: Three views. TECHNIQUE: AP, lateral and oblique radiographic images acquired of the left foot. LIMITATIONS: None. FINDINGS: Unchanged periosteal reaction in the 5th metatarsal osteotomy status post amputations of t he distal 2nd metatarsal and 3rd phalanx. IMPRESSION: Unchanged osteomyelitis at the 5th metatarsal osteotomy. TECHNICAL DOCUMENTATION: JOB ID: [id number]- All Rights Reserved
[2017-10-11] MEDS: NITROGLYCERIN 0.4 MG/TAB 25 TAB/BOTTLE SL PRN ×3 (15:57→16:25)
[2017-10-11 16:31] LABS: VENOUS BLOOD BASE EXCESS -2.2 mmol/L; VENOUS BLOOD HCO3 22.6 mmol/L (20-32); VENOUS BLOOD PCO2 38.9 mmHg (35-63); VENOUS BLOOD PH 7.38 (7.30-7.42)
--- NOTE | 2017-10-11 16:32 | ER Document Report ---
ED Cardiac - General Stated Complaint: CHEST PAIN Time Seen by Provider: 10/11/17 14:13 Mode of Arrival: Stretcher Information source: Patient, Emergency Med Personnel Notes: Patient is a 47-year-old morbidly obese black male brought in by EMS today with complaint of chest pain for 24 hours. Patient admits openly that he has been using heroin and cocaine over the weekend. According to him he stopped using Thursday at 5 AM. He is complaining of anterior chest pain that has no radiation. Patient is also complaining of his left foot pain he has a history of insulin-dependent diabetes and he has had 2 toes amputated on his left foot most recent was 1 month ago and he has had 3 toes on the right foot amputated which are more chronic. Patient last changed his dressing on his left foot from the surgery 2 weeks ago. Patient also relates a history that one year ago he had been diagnosed with a ME. Patient states he is scared that he might have done something bad this time to his body. Patient describes the pain in his chest is sharp and stabbing and feels like something sitting on his chest. He also gives history of family having cardiac history with his father and mother. Patient does not smoke cigarettes. TRAVEL OUTSIDE OF THE [place] IN LAST 30 DAYS: No - HPI Patient complains to provider of: Chest pain, Chest tightness, Shortness of breath Use of: Cocaine, Other - Heroin Was the onset of pain: Unknown When did pain begin: Yesterday after stopping cocaine and heroin snorting Is the pain a: New problem Chest pain location: Substernal Quality of pain: Severe, Heaviness, Pressure, Sharp, Stabbing, Throbbing Chest pain radiation location: None Severity now: Severe Pain level currently: 4 Chest pain precipitating factors: Physical Exertion Cardiac risk factors: Diabetes, Hypertension, + Family history, Dyslipidemia, Hx ME Positive cardiac history: Yes Associated symptoms: Weakness Exacerbated by: Denies Relieved by: Nothing Similar symptoms previously: Yes Recently seen / treated by doctor: No - Related Data Allergies/Adverse Reactions: Penicillins Allergy (Verified 09/03/17 10:43) rash Past Medical History - General Information source: Patient - Social History Smoking Status: Never Smoker Cigarette use (# per day): No Chew tobacco use (# tins/day): No Smoking Education Provided: No Frequency of alcohol use: Occasional Drug Abuse: Cocaine, Heroin, Other - Snorting only Lives with: Family Family History: Arthritis, CAD, COPD, CVA, DM, Hyperlipidemia, Hypertension. denies: Malignancy, Thyroid Disfunction - Past Medical History Cardiac Medical History: Reports: Hx Coronary Artery Disease, Hx Heart Attack, Hx Hypercholesterolemia, Hx Hypertension, Hx Peripheral Vascular Disease, Hx Pulmonary Embolism Pulmonary Medical History: Reports: Hx Asthma, Hx COPD, Hx Pneumonia - 1 year ago Neurological Medical History: Reports: Hx Seizures - Patient had a seizure in 2012. Depakote stopped by his physician. Endocrine Medical History: Reports: Hx Diabetes Mellitus Type 1, Hx Diabetes Mellitus Type 2 - Patient is a poorly compliant, poorly controlled diabetic who uses insulin. Renal/ Medical History: Reports: Hx Renal Insufficiency. Denies: Hx Peritoneal Dialysis Malignancy Medical History: GI Medical History: Musculoskeltal Medical History: Reports Hx Arthritis, Reports Hx Musculoskeletal Deformity, Reports Hx Musculoskeletal Trauma Skin Medical History: Reports Hx MRSA Psychiatric Medical History: Reports: Hx Anxiety, Hx Bipolar Disorder, Hx Depression, Hx Post Traumatic Stress Disorder Traumatic Medical History: Reports: Hx Fractures - Knee pelvis and hand Infectious Medical History: Reports: Hx HIV - Patient reports no detectable viral count, Hx MRSA Past Surgical History: Reports: Hx Oral Surgery - Removal of most of teeth, Hx Orthopedic Surgery - right knee replacement, rt toe amputation; amputation 2 left toes., Other - Laser eye surgery PICC line placement, wound debridement - Immunizations Immunizations up to date: Yes Hx Diphtheria, Pertussis, Tetanus Vaccination: Yes Hx Pneumococcal Vaccination: 11/09/13 Review of Systems - Review of Systems Constitutional: Malaise EENT: No symptoms reported Cardiovascular: Chest pain, Heart racing Respiratory: Cough, Short of breath Gastrointestinal: No symptoms reported Genitourinary: No symptoms reported Male Genitourinary: No symptoms reported Musculoskeletal: No symptoms reported Skin: Lesions Hematologic/Lymphatic: No symptoms reported Neurological/Psychological: No symptoms reported -: Yes All other systems reviewed and negative Physical Exam - Vital signs Interpretation: Hypertensive, Tachycardic - General General appearance: Alert - Respiratory Respiratory status: No respiratory distress Chest status: Tender, Pain on movement, Pain with cough, Pain with deep breathing, Other - Examination patient's anterior chest shows that patient has some reproducible tenderness mid sternal area to palpation and to deep breathing. Patient has reduced pain when pressure is applied to the area and he inhales deeply. Breath sounds: Decreased air movement. No: Normal, Nonproductive cough, Productive cough, Rales, Rhonchi, Stridor, Wheezing, Other Chest palpation: Normal. No: Flail segment, [place] frothy sputum, Purulent sputum , Subcutaneous emphysema, Sucking chest wound, Tender, Ecchymosis, Wounds, Other - Cardiovascular Rhythm: Tachycardia Murmur: No - Abdominal Inspection: Morbidly Obese Distension: Distended Bowel sounds: Hypoactive Tenderness: Tender, Other - Examination patient's abdomen shows there is diffuse tenderness but nonspecific. Bowel sounds are present all 4 quads. Organomegaly: No organomegaly - Back Back: Normal, Nontender. No: Tender, Deformity/step-off, CVA tenderness, Vertebra tenderness, Scars, Scoliosis, Wounds, Other - Extremities Foot: Other - Examination of patient's left foot shows there are recent amputations which appear to be the toe and there appears to be a area along the lateral aspect of the surgical area that is moderately erythematous slightly tender to touch and is approximately 6 cm long by 4 cm wide and it is into the tissue. There was a dressing on this foot which had been there for 2 weeks without being changed and smelled of gangrene. On visualization of the area no gangrene was apparent. Patient admits to neglecting the foot since his surgery. The right foot has healed former amputations of the toes there is no apparent erythema or infections at this time. - Neurological Neuro grossly intact: Yes Cognition: Normal Orientation: AAOx4 [place] Coma Scale Eye Opening: Spontaneous [place] Coma Scale Verbal: Oriented [place] Coma Scale Motor: Obeys Commands [place] Coma Scale Total: 15 Speech: Normal Course - Laboratory Result Diagrams: 10/11/17 14:45 10/11/17 14:45 Laboratory results interpreted by me: 10/11/17 10/11/17 10/11/17 14:45 14:45 14:46 Hgb 11.5 L Hct 35.1 L MCH 26.2 L RDW 18.0 H Sodium 135.5 L Potassium 5.3 H BUN 24 H Creatinine 1.59 H Est GFR ( Amer) 56 L Est GFR (Non-Af Amer) 47 L Glucose 412 H* POC Glucose 420 H* Direct Bilirubin 0.5 H ALT 15 L Alkaline Phosphatase 146 H Creatine Kinase 208 H - Diagnostic Test Radiology reviewed: Reports reviewed - X-rays of the foot show no acute findings no gangrene or gas air seen. The chest x-ray also showed no acute cardiopulmonary findings. - EKG Interpretation by Me EKG shows normal: Sinus rhythm Rate: Tachycardia Rhythm: NSR Discharge - Discharge Clinical Impression: Diabetic infection of left foot Chest pain Qualifiers: Chest pain type: unspecified Qualified Code(s): R07.9 - Chest pain, unspecified Hypertension Qualifiers: Hypertension type: unspecified Qualified Code(s): I10 - Essential (primary) hypertension Diabetes Qualifiers: Diabetes mellitus type: type 2 Diabetes mellitus complication status: with hyperglycemia Condition: Stable Disposition: ADMITTED INPATIENT Admitting Provider: Dr Gomez Unit Admitted: Telemetry
[2017-10-11] MEDS ORDERED: CLINDAMYCIN 600 MG/D5W RTU 600 MG/50 ML RTUPB IV ONE (17:33)
[2017-10-11] MEDS ORDERED: LEVOFLOXACIN 500 MG/D5W RTU 500 MG/100 ML RTUPB IV ONE (17:34)
[2017-10-11] MEDS ORDERED: MORPHINE SULFATE 10 MG/ML INJ IV ONE (17:35)
[2017-10-11] MEDS ORDERED: ACETAMINOPHEN 325 MG TABLET PO PRN (17:36)
[2017-10-11] MEDS ORDERED: ONDANSETRON HCL INJ/PF 4 MG/2 ML SDV IV PRN (17:36)
[2017-10-11 17:39] LABS: APPEARANCE,URINE CLEAR; BILIRUBIN,URINE NEGATIVE (NEGATIVE); GLUCOSE, URINE >=500 mg/dL (NEGATIVE); KETONES,URINE 20 mg/dL (NEGATIVE); LEUKOCYTE ESTERASE,URINE NEGATIVE (NEGATIVE); NITRITE,URINE NEGATIVE (NEGATIVE); PROTEIN,URINE 100 mg/dL (NEGATIVE); URINE SPECIFIC GRAVITY 1.026; UROBILINOGEN,URINE NEGATIVE mg/dL (<2.0)
[2017-10-11] MEDS ORDERED: DEXTROSE 50%-WATER 25 GM/50 ML DISP.SYRIN IV PRN ×2 (17:45)
[2017-10-11] MEDS ORDERED: DEXTROSE 40% GEL 15 GM TUBE PO PRN ×2 (17:45)
[2017-10-11] MEDS ORDERED: GLUCAGON,HUMAN RECOMB 1 MG INJ IM PRN (17:45)
[2017-10-11] MEDS ORDERED: DILTIAZEM HCL 180 MG CAPSULE.CR PO ONE ×2 (18:00→19:00)
[2017-10-11 18:07] LABS: URINE BARBITURATES SCREEN NEGATIVE; URINE METHADONE SCREEN NEGATIVE; URINE OPIATES LOW UNCONFIRMED POSITIVE; URINE PHENCYCLIDINE SCREEN NEGATIVE
[2017-10-11] MEDS ORDERED: DIAZEPAM 5 MG TABLET PO PRN (18:13)
[2017-10-11] MEDS ORDERED: NITROGLYCERIN 0.4 MG/TAB 25 TAB/BOTTLE SL PRN (18:18)
[2017-10-11] MEDS: NORMAL SALINE 1000 ML 1,000 ML IV PRN (18:42)
[2017-10-11] MEDS ORDERED: LISINOPRIL 10 MG TABLET PO ONE (18:45)
--- NOTE | 2017-10-11 21:51 | EKG REPORT ---
SEVERITY:- OTHERWISE NORMAL ECG - SINUS TACHYCARDIA : Confirmed by: Wesley Zamora MD 11-Oct-2017 21:51:21
[2017-10-11] MEDS: GABAPENTIN 300 MG CAPSULE PO SCH (22:15)
[2017-10-11] MEDS: HEPARIN SOD (PORCINE) 5,000 UNIT/ML 1 ML SYRINGE SUBCUT SCH (22:15)
[2017-10-11] MEDS ORDERED: INSULIN DETEMIR 100 UNIT/ML 3 ML PEN SUBCUT ONE (22:36)
[2017-10-11] MEDS: INSULIN DETEMIR 100 UNIT/ML 3 ML PEN SUBCUT SCH (23:34)
[2017-10-11] MEDS: OXYCODONE-ACETAMINOPHEN 5-325 MG TABLET PO PRN (23:35)
--- NOTE | 2017-10-11 23:37 | PDOC H&P ---
History of Present Illness Admission Date/PCP: 10/11/17 17:57 Patient complains of: CHEST PAIN AFTER TAKING COCAINE History of Present Illness: MILADYS LONDON III is a 47 year old male presented to ED via ambulance complaining of midsternal chest pain after took some cocaine.states had been doing cocaine off/on since last week because of his depression. Admits having a history of heart attack in the past due to cocaine. Patient also complains of shortness of breath. Pain got better after he was given nitrolycerin under his tongue. Patient has a history of diabetes and uses lantus. Has been having fever off on. Has been going to the wound care center due to ulcer in his left foot. 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 After evaluation of patient in ED , our service was contacted for further treatment. Past Medical History Cardiac Medical History: Reports: Coronary Artery Disease, Myocardial Infarction , Hyperlipidema, Hypertension, Peripheral Vascular Disease, Pulmonary Embolism Pulmonary Medical History: Reports: Asthma, Chronic Obstructive Pulmonary Disease (COPD), Pneumonia - 1 year ago Neurological Medical History: Reports: Seizures - Patient had a seizure in 2012. Depakote stopped by his physician. Endocrine Medical History: Reports: Diabetes Mellitus Type 2 - Patient is a poorly compliant, poorly controlled diabetic who uses insulin. Renal/ Medical History: Reports: Chronic Kidney Disease Malignancy Medical History: GI Medical History: Musculoskeltal Medical History: Reports: Arthritis Psychiatric Medical History: Reports: Bipolar Disorder, Depression, Post Traumatic Stress Disorder, Substance Abuse Hematology: Reports: Anemia Infectious Medical History: Reports: HIV - Patient reports no detectable viral count, Methicillin-Resistant Staph Aureus Past Surgical History Past Surgical History: Reports: Orthopedic Surgery - right knee replacement, rt toe amputation; amputation 2 left toes., Other - Laser eye surgery PICC line placement, wound debridement Social History Lives with: Family Smoking Status: Never Smoker Frequency of Alcohol Use: None Hx Recreational Drug Use: Yes Drugs: Cocaine, Marijuana Hx Prescription Drug Abuse: No - Advance Directive Resuscitation Status: Full Code Family History Family History: Arthritis, CAD, COPD, CVA, DM, Hyperlipidemia, Hypertension. denies: Malignancy, Thyroid Disfunction Parental Family History Reviewed: Yes Children Family History Reviewed: Yes Sibling(s) Family History Reviewed.: Yes Medication/Allergy Home Medications: Alprazolam [Xanax] 2 mg PO BID 06/08/17 Amitriptyline HCl [Elavil 25 mg Tablet] 25 mg PO DAILY 06/08/17 Aripiprazole [Abilify] 20 mg PO QPM 06/08/17 Atenolol [Tenormin 100 mg Tablet] 100 mg PO DAILY 06/08/17 Clonidine HCl [Catapres 0.1 mg Tablet] 0.1 mg PO Q12 06/08/17 Cyclobenzaprine HCl [Flexeril 10 mg Tablet] 10 mg PO TIDP PRN 06/08/17 Emtricitab/Rilpiviri/Tenof Ala [Odefsey Tablet] 1 each PO DAILY 06/08/17 Ergocalciferol (Vitamin D2) [Drisdol 50,000 unit (1.25MG) Capsule] 50,000 unit PO BARRON@1000 06/08/17 Fluoxetine HCl [Prozac] 40 mg PO DAILY 06/08/17 Fluticasone Propionate [Flonase Nasal [place] 50 Mcg/[place] 16 gm] 2 sprays NASL DAILY 06/08/17 Gabapentin [Neurontin 400 mg Capsule] 400 mg PO BID 06/08/17 Hydralazine HCl [Apresoline 50 mg Tablet] 50 mg PO Q8 06/08/17 Levocetirizine Dihydrochloride [Xyzal] 5 mg PO DAILYP PRN 06/08/17 Prazosin HCl [Minipress] 1 mg PO QHS 06/08/17 Simvastatin [Zocor 20 mg Tablet] 20 mg PO QHS 06/08/17 Sodium Polystyrene Sulfon/Sorb [Sps 15 gm/60 ml Suspension] 30 gm PO MO@1000 Zolpidem Tartrate [Ambien] 15 mg PO HSP PRN 06/08/17 Hydromorphone HCl [Dilaudid 2 mg Tablet] 4 mg PO Q2HP PRN #10 tablet 06/15/17 Sodium Bicarbonate [Sodium Bicarbonate 650 mg Tablet] 650 mg PO DAILY #30 tablet 06/15/17 Tramadol HCl 50 mg PO QID PRN #20 tablet 07/05/17 Flu Vacc [id number] Up/Pf [Fluzone Adlt Quad [id number] Vac 0.5 ml Syr] 0.5 ml IM .DISCHARGE PRN disp.syrin 08/11/17 Insulin Glargine,Hum.rec.anlog [Lantus Insulin 100 Unit/1 ml 10 ml] 35 unit SUBCUT BID unit 08/11/17 Levofloxacin [Levaquin 750 mg Tablet] 750 mg PO DAILY #14 tablet 08/11/17 Oxycodone HCl [Oxy-Ir 5 mg Tablet] 10 mg PO Q4HP PRN #14 tablet 08/11/17 Torsemide [Demadex 20 mg Tablet] 20 mg PO DAILY #30 tablet 08/11/17 Levofloxacin [Levaquin 750 mg Tablet] 750 mg PO DAILY #10 tablet 08/30/17 Levofloxacin [Levaquin 750 mg Tablet] 750 mg PO DAILY #20 tab 09/30/17 Allergies/Adverse Reactions: Penicillins Allergy (Verified 09/03/17 10:43) rash Review of Systems Constitutional: PRESENT: fever(s). ABSENT: chills Eyes: ABSENT: visual disturbances Ears: ABSENT: hearing changes Cardiovascular: PRESENT: chest pain, palpitations. ABSENT: edema Respiratory: PRESENT: dyspnea. ABSENT: cough Gastrointestinal: ABSENT: abdominal pain, diarrhea, nausea, vomiting Genitourinary: ABSENT: dysuria Musculoskeletal: PRESENT: deformity, joint swelling Integumentary: PRESENT: wounds Psychiatric: PRESENT: depression Physical Exam Vital Signs: Temp Pulse Resp BP Pulse Ox 98.2 F 18 138/82 H 99 10/11/17 17:34 10/11/17 18:01 10/11/17 18:01 10/11/17 18:01 General appearance: PRESENT: no acute distress, cooperative, obese Head exam: PRESENT: atraumatic, normocephalic Eye exam: PRESENT: conjunctiva pink, EOMI, PERRLA Mouth exam: PRESENT: moist, neck supple Neck exam: PRESENT: full ROM. ABSENT: JVD, tenderness, thyromegaly Respiratory exam: PRESENT: clear to auscultation vanessa Cardiovascular exam: PRESENT: RRR. ABSENT: diastolic murmur, systolic murmur Vascular exam: PRESENT: normal capillary refill GI/Abdominal exam: PRESENT: normal bowel sounds, soft. 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 Foot X-Ray 10/11/17 14:31 IMPRESSION: Unchanged osteomyelitis at the 5th metatarsal osteotomy. Assessment & Plan - Diagnosis (1) Chest pain Qualifiers: Chest pain type: unspecified Qualified Code(s): R07.9 - Chest pain, unspecified Is this a current diagnosis for this admission?: Yes Plan: Resolved after nitroglycerin. Recurrent problem. Advised to quit out of danger of MA ans stroke. 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 Probable issue of poor healing is chronic osteomyelitis. To place on clindamycin oral due to good bone penetration (4) Hypertension Qualifiers: Hypertension type: unspecified Qualified Code(s): I10 - Essential (primary ) hypertension Is this a current diagnosis for this admission?: Yes Plan: Order extended release diltiazem and lisinopril (5) Anemia of chronic disease Is this a current diagnosis for this admission?: Yes Plan: Trend (6) Osteomyelitis Qualifiers: Osteomyelitis type: other chronic Osteomyelitis location: foot Is this a current diagnosis for this admission?: Yes Plan: To place on clindamycin orally - Time Time Spent: 50 to 70 Minutes Smoking Cessation Education: 3 to 10 minutes Medications reviewed and adjusted accordingly: Yes Anticipated discharge: Home Within: within 48 hours - Inpatient Certification Based on my medical assessment, after consideration of the patient's comorbidities, presenting symptoms, or acuity I expect that the services needed warrant INPATIENT care.: Yes I certify that my determination is in accordance with my understanding of Medicare's requirements for reasonable and necessary INPATIENT services [42 CFR 412.3e].: Yes Medical Necessity: Need for IV Antibiotics
[2017-10-12] MEDS ORDERED: CLINDAMYCIN 600 MG/D5W RTU 600 MG/50 ML RTUPB IV SCH (02:00)
[2017-10-12] MEDS ORDERED: TRIAMCINOLONE ACETONIDE 0.1% CREAM 15 GM TOP PRN (03:29)
[2017-10-12] MEDS ORDERED: PERMETHRIN 5% CREAM 60 GM TP ONE (03:30)
[2017-10-12 04:57] LABS: ABSOLUTE BASOPHILS # (AUTO) 0.1 10^3/uL (0.0-0.2); ABSOLUTE EOSINOPHILS # (AUTO) 0.1 10^3/uL (0.0-0.6); ABSOLUTE LYMPHOCYTES (AUTO) 1.6 10^3/uL (0.5-4.7); ABSOLUTE MONOCYTES (AUTO) 0.7 10^3/uL (0.1-1.4); EOSINOPHILS % (AUTO) 1.7 % (0-6); HEMATOCRIT 29.2 % (37.9-51.0); HEMOGLOBIN 9.7 g/dL (13.5-17.0); HGB HCT DIFFERENCE -0.1; LYMPHOCYTES % (AUTO) 24.5 % (13-45); MEAN CORPUSCULAR HEMOGLOBIN 26.7 pg (27.0-33.4); MEAN CORPUSCULAR HGB CONC 33.1 g/dL (32.0-36.0); MEAN CORPUSCULAR VOLUME 81 fl (80-97); MONOCYTES % (AUTO) 10.3 % (3-13); RED BLOOD COUNT 3.62 10^6/uL (4.35-5.55); RED CELL DISTRIBUTION WIDTH 18.3 % (11.5-14.0); SEGMENTED NEUTROPHILS % (AUTO) 62.5 % (42-78); WHITE BLOOD COUNT 6.4 10^3/uL (4.0-10.5)
[2017-10-12 05:13] LABS: ANION GAP 10 (5-19); BLOOD UREA NITROGEN 24 mg/dL (7-20); CALCIUM 8.2 mg/dL (8.4-10.2); CARBON DIOXIDE 21 mmol/L (22-30); CHLORIDE 102 mmol/L (98-107); CREATININE RESULT 1.51 mg/dL (0.52-1.25); MAGNESIUM 2.2 mg/dL (1.6-2.3); POTASSIUM 4.7 mmol/L (3.6-5.0)
[2017-10-12 05:28] LABS: GLUCOSE 421 mg/dL (75-110)
[2017-10-12 05:39] LABS: ERYTHROCYTE SEDIMENTATION RATE 86 mm/hr (0-15)
[2017-10-12] MEDS: NORMAL SALINE 1000 ML 1,000 ML IV PRN ×2 (06:02→20:46)
[2017-10-12] MEDS: OXYCODONE-ACETAMINOPHEN 5-325 MG TABLET PO PRN ×3 (06:03→23:07)
[2017-10-12] MEDS: HEPARIN SOD (PORCINE) 5,000 UNIT/ML 1 ML SYRINGE SUBCUT SCH ×3 (06:04→22:58)
[2017-10-12] MEDS: CLINDAMYCIN HCL 150 MG CAPSULE PO SCH ×3 (06:04→22:43)
[2017-10-12] MEDS ORDERED: INSULIN LISPRO 100 UNIT/ML 3 ML VIAL SUBCUT ONE (06:30)
[2017-10-12] MEDS ORDERED: PERMETHRIN 5% CREAM 60 GM TP SCH (09:00)
[2017-10-12] MEDS: ASPIRIN 81 MG TABLET, ENT COATED PO SCH (10:23)
[2017-10-12] MEDS: DILTIAZEM HCL 180 MG CAPSULE.CR PO SCH (10:23)
[2017-10-12] MEDS: DOCUSATE SODIUM 100 MG CAPSULE PO SCH (10:23)
[2017-10-12] MEDS: INSULIN DETEMIR 100 UNIT/ML 3 ML PEN SUBCUT SCH ×2 (10:24→22:55)
[2017-10-12] MEDS: GABAPENTIN 300 MG CAPSULE PO SCH ×2 (10:24→22:44)
[2017-10-12] MEDS: LISINOPRIL 10 MG TABLET PO SCH (10:24)
[2017-10-12] MEDS: INSULIN LISPRO 100 UNIT/ML 3 ML VIAL SUBCUT SCH ×3 (10:26→16:29)
--- NOTE | 2017-10-12 13:09 | Physician Advisory Note ---
Physician Advisor ProgressNote .: [facility] I have reviewed the medical record for this patient. Physician Advisor Statement: Please consider documentin. Medical necessity: Please specifically document the reasons this Medicare patient cannot receive the rest of his tx, from today on, as outpt (concerns for what could ensue if not being tx'd in hospital as opposed to daily clinic visits - not just to be in hospital to keep him from neglecting himself further - clinical reasons why THIS pt needs to be kept a 2nd MN when being tx'd w/po abx, & what is being done about them) - Ex: - Is worsening bicarb concerning for something in this case? (possibly sliding into DKA? worsening infxn? ...) - If ongoing severe hyperglycemia is concerning, what is being done for it that requires hospital? - Is worsening Na concerning to attending/needing further monitoring or tx, or is it just abnormal due to the high glc's and not worrisome itself? - Does he still need IVF? What is it tx'ing? - Are you concerned for recurrent MRSA infection? - Is his depression worsened to the point that he needs new eval/tx w/ monitoring of response, in order to avoid further worsening of his other health problems? ... 2. Is osteomyelitis ACUTE or chronic? If not an acute problem, why does he need to be in hospital? 3. "Chronic benzodiazepine dependence" ? "Polysubstance abuse (or dependence?) involving cocaine/heroin/THC" ? 4. "Chronic Kidney Disease Stage 3" Thanks! CK
--- NOTE | 2017-10-12 16:19 | PDOC PROGRESS REPORT ---
Subjective Progress Note for:: 10/12/17 Subjective:: Patient complains of pain in the middle of his chest off and on. Patient also expresses that he would like to get rehab to get his strength back and care of the left foot wound. Also complains of shortness of breath. Nurse notified that last night it was noted bed bugs. Reason For Visit: CHEST PAIN,DIABETIC FOOT INFECTION,UNCONTROLLED Physical Exam Vital Signs: Temp Pulse Resp BP Pulse Ox 97.7 F 91 18 109/57 L 96 10/12/17 04:08 10/12/17 04:08 10/12/17 04:08 10/12/17 04:08 10/12/17 04:08 General appearance: PRESENT: no acute distress, cooperative Head exam: PRESENT: atraumatic, normocephalic Eye exam: PRESENT: EOMI, PERRLA Ear exam: PRESENT: normal external ear exam, TM's normal bilaterally Mouth exam: PRESENT: moist, neck supple Neck exam: PRESENT: full ROM, tenderness. ABSENT: JVD, meningismus Respiratory exam: PRESENT: clear to auscultation vanessa. ABSENT: crackles, rhonchi Cardiovascular exam: PRESENT: RRR. ABSENT: diastolic murmur, systolic murmur Vascular exam: PRESENT: normal capillary refill GI/Abdominal exam: PRESENT: normal bowel sounds, soft. ABSENT: distended, tenderness Extremities exam: PRESENT: pedal edema. ABSENT: joint swelling Musculoskeletal exam: PRESENT: deformity, other - left foot ulcer localized to lateral aspect Neurological exam: PRESENT: alert, awake, oriented to person, oriented to place , oriented to time Psychiatric exam: PRESENT: depressed Results Laboratory Results: 10/12/17 04:15 10/12/17 04:15 10/12/17 10/12/17 04:15 04:15 WBC 6.4 RBC 3.62 L Hgb 9.7 L Hct 29.2 L MCV 81 MCH 26.7 L MCHC 33.1 RDW 18.3 H Plt Count 281 Seg Neutrophils % 62.5 Lymphocytes % 24.5 Monocytes % 10.3 Eosinophils % 1.7 Basophils % 1.0 Absolute Neutrophils 4.0 Absolute Lymphocytes 1.6 Absolute Monocytes 0.7 Absolute Eosinophils 0.1 Absolute Basophils 0.1 Sodium 133.0 L Potassium 4.7 Chloride 102 Carbon Dioxide 21 L Anion Gap 10 BUN 24 H Creatinine 1.51 H Est GFR ( Amer) > 60 Est GFR (Non-Af Amer) 49 L Glucose 421 H* Calcium 8.2 L Magnesium 2.2 10/12/17 04:15 NT-Pro-B Natriuret Pep 120 Impressions: Chest X-Ray 10/11/17 14:05 IMPRESSION: NO ACUTE RADIOGRAPHIC FINDING IN THE CHEST. Foot X-Ray 10/11/17 14:31 IMPRESSION: Unchanged osteomyelitis at the 5th metatarsal osteotomy. Assessment & Plan - Diagnosis (1) Chest pain Qualifiers: Chest pain type: unspecified Qualified Code(s): R07.9 - Chest pain, unspecified Is this a current diagnosis for this admission?: Yes Plan: Resolved after nitroglycerin. Recurrent problem. Advised to quit out of danger of OR and stroke. This may relate to acute on chronic congestive heart failure. Will continue with outpatient regimen regimen order on admission and will start Lasix IV. 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 Probable issue of poor healing is chronic osteomyelitis. Continue clindamycin p.o. since good bone penetration (4) Hypertension Qualifiers: Hypertension type: unspecified Qualified Code(s): I10 - Essential (primary ) hypertension Is this a current diagnosis for this admission?: Yes Plan: Opted not to reorder clonidine since no true benefit in cardiac function. Did not order atenolol due to recurring use of cocaine. Will continue Cardizem and lisinopril as on admission (5) Anemia of chronic disease Is this a current diagnosis for this admission?: Yes Plan: Stable (6) Osteomyelitis Qualifiers: Osteomyelitis type: other chronic Osteomyelitis location: foot Is this a current diagnosis for this admission?: Yes Plan: Continue clindamycin orally (7) Pulmonary hypertension Is this a current diagnosis for this admission?: Yes Plan: Noted recent echocardiogram result. Concern this may relate to recurrent cocaine use versus sleep apnea. (8) Acute on chronic congestive heart failure with left ventricular diastolic dysfunction Is this a current diagnosis for this admission?: Yes Plan: BMP appears under estimated due to obesity. Patient currently is symptomatic with shortness of breath. Patient requires monitoring of blood pressures since adding lisinopril and Cardizem. Patient will also be placed on Lasix IV. (9) Infestation by bed bug Is this a current diagnosis for this admission?: Yes Plan: Treated with Elimite last night - Time Time Spent with patient: 15-24 minutes Medications reviewed and adjusted accordingly: Yes Anticipated discharge: Home Within: within 48 hours - Inpatient Certification Based on my medical assessment, after consideration of the patient's comorbidities, presenting symptoms, or acuity I expect that the services needed warrant INPATIENT care.: Yes I certify that my determination is in accordance with my understanding of Medicare's requirements for reasonable and necessary INPATIENT services [42 CFR 412.3e].: Yes Medical Necessity: Other - IV Lasix
[2017-10-12] MEDS: INSULIN LISPRO 100 UNIT/ML 3 ML VIAL SUBCUT PRN ×2 (16:29→23:16)
[2017-10-12] MEDS ORDERED: LEVOFLOXACIN 500 MG/D5W RTU 500 MG/100 ML RTUPB IV SCH (18:00)
[2017-10-12] MEDS: FUROSEMIDE INJ/PF 20 MG/2 ML SDV IV SCH (18:38)
[2017-10-13] MEDS: HEPARIN SOD (PORCINE) 5,000 UNIT/ML 1 ML SYRINGE SUBCUT SCH ×3 (07:06→21:16)
[2017-10-13] MEDS: FUROSEMIDE INJ/PF 20 MG/2 ML SDV IV SCH ×2 (07:07→17:24)
[2017-10-13] MEDS: CLINDAMYCIN HCL 150 MG CAPSULE PO SCH ×3 (07:09→21:17)
[2017-10-13] MEDS: INSULIN LISPRO 100 UNIT/ML 3 ML VIAL SUBCUT SCH ×3 (10:18→17:23)
[2017-10-13] MEDS: INSULIN LISPRO 100 UNIT/ML 3 ML VIAL SUBCUT PRN ×3 (10:19→17:24)
[2017-10-13] MEDS: DILTIAZEM HCL 180 MG CAPSULE.CR PO SCH (10:19)
[2017-10-13] MEDS: OXYCODONE-ACETAMINOPHEN 5-325 MG TABLET PO PRN ×4 (10:20→23:34)
[2017-10-13] MEDS: GABAPENTIN 300 MG CAPSULE PO SCH ×2 (10:20→21:17)
[2017-10-13] MEDS: DOCUSATE SODIUM 100 MG CAPSULE PO SCH (10:20)
[2017-10-13] MEDS: ASPIRIN 81 MG TABLET, ENT COATED PO SCH (10:20)
[2017-10-13] MEDS: LISINOPRIL 10 MG TABLET PO SCH (10:20)
--- NOTE | 2017-10-13 10:28 | PDOC PROGRESS REPORT ---
Subjective Progress Note for:: 10/13/17 Subjective:: Patient complains of pain in the middle of the chest accompanied by shortness of breath Reason For Visit: CHEST PAIN,DIABETIC FOOT INFECTION,UNCONTROLLED Physical Exam Vital Signs: Temp Pulse Resp BP Pulse Ox 97.7 F 89 17 141/91 H 100 10/13/17 04:23 10/13/17 04:23 10/13/17 04:23 10/13/17 04:23 10/13/17 04:23 Intake & Output 10/11/17 10/12/17 10/13/17 06:59 06:59 06:59 Intake Total 1950 3260 Balance 1950 3260 Weight 108.2 kg General appearance: PRESENT: no acute distress, cooperative, morbidly obese Head exam: PRESENT: atraumatic, normocephalic Eye exam: PRESENT: EOMI, PERRLA Ear exam: PRESENT: normal external ear exam Mouth exam: PRESENT: moist Neck exam: PRESENT: full ROM. ABSENT: JVD, tenderness Respiratory exam: PRESENT: clear to auscultation vanessa. ABSENT: crackles, rhonchi Cardiovascular exam: PRESENT: RRR. ABSENT: diastolic murmur, systolic murmur Vascular exam: PRESENT: normal capillary refill GI/Abdominal exam: PRESENT: normal bowel sounds, soft. ABSENT: tenderness Extremities exam: PRESENT: other - Check with deformity to left foot. Left foot is covered with clean bandages. There is an ulcer localized to the lateral aspect and unable to evaluate due to clean bandages recently applied Neurological exam: PRESENT: alert, oriented to person, oriented to place, oriented to time Psychiatric exam: PRESENT: depressed Results Laboratory Results: 10/12/17 04:15 10/12/17 04:15 10/12/17 10/12/17 10/12/17 04:15 04:15 04:15 WBC 6.4 RBC 3.62 L Hgb 9.7 L Hct 29.2 L MCV 81 MCH 26.7 L MCHC 33.1 RDW 18.3 H Plt Count 281 Seg Neutrophils % 62.5 Lymphocytes % 24.5 Monocytes % 10.3 Eosinophils % 1.7 Basophils % 1.0 Absolute Neutrophils 4.0 Absolute Lymphocytes 1.6 Absolute Monocytes 0.7 Absolute Eosinophils 0.1 Absolute Basophils 0.1 Sodium 133.0 L Potassium 4.7 Chloride 102 Carbon Dioxide 21 L Anion Gap 10 BUN 24 H Creatinine 1.51 H Est GFR ( Amer) > 60 Est GFR (Non-Af Amer) 49 L Glucose 421 H* Calcium 8.2 L Magnesium 2.2 TSH 0.51 10/12/17 10/12/17 04:15 04:15 Troponin I < 0.012 NT-Pro-B Natriuret Pep 120 Impressions: Chest X-Ray 10/11/17 14:05 IMPRESSION: NO ACUTE RADIOGRAPHIC FINDING IN THE CHEST. Foot X-Ray 10/11/17 14:31 IMPRESSION: Unchanged osteomyelitis at the 5th metatarsal osteotomy. Assessment & Plan - Diagnosis (1) Chest pain Qualifiers: Chest pain type: unspecified Qualified Code(s): R07.9 - Chest pain, unspecified Is this a current diagnosis for this admission?: Yes Plan: We will order nuclear stress test. Accordingly he has not been evaluated in this regard (2) Diabetes Qualifiers: Diabetes mellitus type: type 2 Diabetes mellitus complication status: with hyperglycemia Diabetes mellitus terminal carman insulin use: with mcfp use Qualified Code(s): E11.65 - Type 2 diabetes mellitus with hyperglycemia; Z79.4 - long-term (current) use of insulin; Z79.4 - continuous churn buttermaker (current) use of insulin ; Z79.4 - continuous churn buttermaker (current) use of insulin; Z79.4 - continuous churn buttermaker (current) use of insulin Is this a current diagnosis for this admission?: Yes Plan: Continue present management (3) Diabetic infection of left foot Is this a current diagnosis for this admission?: Yes Plan: Ulcer to lateral aspect of left foot does not appear with active infection. Probable issue of poor healing is chronic osteomyelitis. Continue clindamycin p.o. since good bone penetration (4) Hypertension Qualifiers: Hypertension type: unspecified Qualified Code(s): I10 - Essential (primary ) hypertension Is this a current diagnosis for this admission?: Yes Plan: Opted not to reorder clonidine since no true benefit in cardiac function. Did not order atenolol due to recurring use of cocaine. Will continue Cardizem and lisinopril as on admission (5) Anemia of chronic disease Is this a current diagnosis for this admission?: Yes Plan: Stable (6) Osteomyelitis Qualifiers: Osteomyelitis type: other chronic Osteomyelitis location: foot Is this a current diagnosis for this admission?: Yes Plan: Continue clindamycin orally (7) Pulmonary hypertension Is this a current diagnosis for this admission?: Yes Plan: Noted recent echocardiogram result. Concern this may relate to recurrent cocaine use versus sleep apnea. (8) Acute on chronic congestive heart failure with left ventricular diastolic dysfunction Is this a current diagnosis for this admission?: Yes Plan: BMP appears under estimated due to obesity. Patient currently is symptomatic with shortness of breath. Patient requires monitoring of blood pressures since adding lisinopril and Cardizem. Continue IV lasix. (9) Infestation by bed bug Is this a current diagnosis for this admission?: Yes Plan: Treated with Elimite on admission - Time Time Spent with patient: 15-24 minutes Medications reviewed and adjusted accordingly: Yes Anticipated discharge: Home - Inpatient Certification Based on my medical assessment, after consideration of the patient's comorbidities, presenting symptoms, or acuity I expect that the services needed warrant INPATIENT care.: Yes I certify that my determination is in accordance with my understanding of Medicare's requirements for reasonable and necessary INPATIENT services [42 CFR 412.3e].: Yes Medical Necessity: Need Close Monitoring Due to Risk of Patient Decompensation
[2017-10-13] MEDS: INSULIN DETEMIR 100 UNIT/ML 3 ML PEN SUBCUT SCH ×2 (10:41→21:15)
[2017-10-13] MEDS: NORMAL SALINE 1000 ML 1,000 ML IV PRN (10:41)
--- NOTE | 2017-10-13 13:19 | Physician Advisory Note ---
Physician Advisor ProgressNote .: Pursuant to the plan for [facility], I have reviewed the medical record for this patient. Physician Advisor Statement: Please document, to avoid a query later: 1. Criteria by which acute diastolic CHF dx was made in this case (otherwise, auditors will refuse to pay), or indicate this dx has since been ruled out. -- Findings such as: PND, orthopnea, rales, JVD, S3 gallop, cardiomegaly on CXR, pulmonary edema on CXR, wt loss of 4.5kg in 5 days in response to diuretic tx, CARRION, HR>120, nocturnal cough, BLE edema, hepatomegaly, pleural effusion, .... (As you know, normal BNP doesn't rule out acute diastolic CHF.) Pertinent data: given 1L NS bolus 10/11, then IV Lasix q12h beginning 12/4 PM & continuing 10/13. Net intake of >3L documented for 10/12 despite Lasix. Started IV NS @125 on 125AM. No Chemistries 10/13 AM. HR 90s. BP as above. Pt had CP /SOB/cough reported initially. CP was worsened by exertion per ED note. Pt had sensation of heart racing. H&P indicated lungs clear, (+)pedal edema. Status: appropriate for Inpt given needing 2nd MN for close monitoring of BP response to new BP med changes (beta tuyet stopped, CCB & ACEI begun) in setting of initial BPs being consistently 130s-150s/90s-110s, then dropping after the 1st MN as low as 98/52 in this pt with PVD (decreased BP means decreased perfusion to foot wound ...), while also trying to diurese pt with IV Lasix. Thanks for all you do! CK
[2017-10-14] MEDS: OXYCODONE-ACETAMINOPHEN 5-325 MG TABLET PO PRN ×3 (03:37→22:57)
[2017-10-14] MEDS: NORMAL SALINE 1000 ML 1,000 ML IV PRN (03:38)
[2017-10-14] MEDS: FUROSEMIDE INJ/PF 20 MG/2 ML SDV IV SCH (05:35)
[2017-10-14] MEDS: CLINDAMYCIN HCL 150 MG CAPSULE PO SCH ×3 (05:39→22:57)
[2017-10-14] MEDS: HEPARIN SOD (PORCINE) 5,000 UNIT/ML 1 ML SYRINGE SUBCUT SCH ×3 (05:39→22:57)
[2017-10-14] MEDS: INSULIN LISPRO 100 UNIT/ML 3 ML VIAL SUBCUT PRN ×4 (06:20→23:13)
[2017-10-14 07:09] LABS: ABSOLUTE BASOPHILS # (AUTO) 0.1 10^3/uL (0.0-0.2); ABSOLUTE EOSINOPHILS # (AUTO) 0.1 10^3/uL (0.0-0.6); ABSOLUTE LYMPHOCYTES (AUTO) 1.8 10^3/uL (0.5-4.7); ABSOLUTE MONOCYTES (AUTO) 0.6 10^3/uL (0.1-1.4); ABSOLUTE NEUT (AUTO) 2.7 10^3/uL (1.7-8.2); BASOPHILS % (AUTO) 1.8 % (0-2); EOSINOPHILS % (AUTO) 2.1 % (0-6); HEMATOCRIT 30.7 % (37.9-51.0); HEMOGLOBIN 10.1 g/dL (13.5-17.0); HGB HCT DIFFERENCE -0.4; LYMPHOCYTES % (AUTO) 34.7 % (13-45); MEAN CORPUSCULAR HEMOGLOBIN 26.1 pg (27.0-33.4); MEAN CORPUSCULAR HGB CONC 32.8 g/dL (32.0-36.0); MEAN CORPUSCULAR VOLUME 80 fl (80-97); RED BLOOD COUNT 3.85 10^6/uL (4.35-5.55); RED CELL DISTRIBUTION WIDTH 17.9 % (11.5-14.0); SEGMENTED NEUTROPHILS % (AUTO) 50.4 % (42-78); WHITE BLOOD COUNT 5.3 10^3/uL (4.0-10.5)
[2017-10-14 07:26] LABS: ANION GAP 11 (5-19); BLOOD UREA NITROGEN 18 mg/dL (7-20); CARBON DIOXIDE 25 mmol/L (22-30); CHLORIDE 102 mmol/L (98-107); CREATININE RESULT 1.19 mg/dL (0.52-1.25); GLUCOSE 225 mg/dL (75-110); MAGNESIUM 1.7 mg/dL (1.6-2.3); POTASSIUM 4.2 mmol/L (3.6-5.0); SODIUM 138.4 mmol/L (137-145)
[2017-10-14] MEDS: DOCUSATE SODIUM 100 MG CAPSULE PO SCH (09:25)
[2017-10-14] MEDS: GABAPENTIN 300 MG CAPSULE PO SCH ×2 (09:25→22:57)
[2017-10-14] MEDS: INSULIN LISPRO 100 UNIT/ML 3 ML VIAL SUBCUT SCH ×3 (09:25→18:06)
[2017-10-14] MEDS: INSULIN DETEMIR 100 UNIT/ML 3 ML PEN SUBCUT SCH ×2 (09:32→22:58)
[2017-10-14] MEDS ORDERED: ONDANSETRON HCL INJ/PF 4 MG/2 ML SDV IV PRN (11:30)
[2017-10-14] MEDS ORDERED: DIAZEPAM 5 MG TABLET PO PRN (11:30)
[2017-10-14] MEDS ORDERED: ACETAMINOPHEN 325 MG TABLET PO PRN (11:30)
[2017-10-14] MEDS ORDERED: SULFAMETHOXAZOLE/TRIMETHOPRIM 800-160 MG TABLET PO ONE (11:45)
[2017-10-14] MEDS ORDERED: REGADENOSON INJ 0.4 MG/5 ML DISP.SYRIN IV ONE (13:37)
[2017-10-14] MEDS: ASPIRIN 81 MG TABLET, ENT COATED PO SCH (14:47)
[2017-10-14] MEDS: LISINOPRIL 10 MG TABLET PO SCH (14:47)
[2017-10-14] MEDS: DILTIAZEM HCL 180 MG CAPSULE.CR PO SCH (14:50)
[2017-10-14] MEDS: SULFAMETHOXAZOLE/TRIMETHOPRIM 800-160 MG TABLET PO SCH (18:07)
[2017-10-14] MEDS: FUROSEMIDE 20 MG TABLET PO SCH (18:08)
--- NOTE | 2017-10-15 00:05 | PDOC PROGRESS REPORT ---
Subjective Progress Note for:: 10/14/17 Subjective:: Patient refers that shortness of breath is gone but still having chest pressure. SOB had been mostly associated with ambulation. Cough at night has improved. Had been told by case management that he may be able to go to rehab. He is hopeful will get a chance to do better. Reason For Visit: CHEST PAIN,DIABETIC FOOT INFECTION,UNCONTROLLED Physical Exam Vital Signs: Temp Pulse Resp BP Pulse Ox 98.8 F 105 H 16 168/98 H 97 10/14/17 17:00 10/14/17 17:00 10/14/17 17:00 10/14/17 17:00 10/14/17 17:00 Intake & Output 10/13/17 10/14/17 10/15/17 06:59 06:59 06:59 Intake Total 4811 4157 1304 Output Total 1360 2200 Balance 3451 1957 1304 Weight 109.5 kg 109.5 kg General appearance: PRESENT: no acute distress, cooperative, morbidly obese Head exam: PRESENT: atraumatic, normocephalic Eye exam: PRESENT: EOMI, PERRLA Mouth exam: PRESENT: moist, neck supple Neck exam: PRESENT: full ROM. ABSENT: JVD, tenderness, thyromegaly Respiratory exam: PRESENT: clear to auscultation vanessa, unlabored. ABSENT: crackles Cardiovascular exam: PRESENT: RRR. ABSENT: diastolic murmur, systolic murmur Vascular exam: PRESENT: normal capillary refill GI/Abdominal exam: PRESENT: normal bowel sounds, soft. ABSENT: distended Extremities exam: PRESENT: +1 edema Musculoskeletal exam: PRESENT: full ROM Neurological exam: PRESENT: alert, awake, oriented to person, oriented to place , oriented to time Psychiatric exam: PRESENT: depressed Results Laboratory Results: 10/14/17 06:47 10/14/17 06:47 10/14/17 10/14/17 06:47 06:47 WBC 5.3 RBC 3.85 L Hgb 10.1 L Hct 30.7 L MCV 80 MCH 26.1 L MCHC 32.8 RDW 17.9 H Plt Count 342 Seg Neutrophils % 50.4 Lymphocytes % 34.7 Monocytes % 11.0 Eosinophils % 2.1 Basophils % 1.8 Absolute Neutrophils 2.7 Absolute Lymphocytes 1.8 Absolute Monocytes 0.6 Absolute Eosinophils 0.1 Absolute Basophils 0.1 Sodium 138.4 Potassium 4.2 Chloride 102 Carbon Dioxide 25 Anion Gap 11 BUN 18 Creatinine 1.19 Est GFR ( Amer) > 60 Est GFR (Non-Af Amer) > 60 Glucose 225 H Calcium 9.0 Magnesium 1.7 10/12/17 10/12/17 04:15 04:15 Troponin I < 0.012 NT-Pro-B Natriuret Pep 120 Impressions: Chest X-Ray 10/11/17 14:05 IMPRESSION: NO ACUTE RADIOGRAPHIC FINDING IN THE CHEST. Foot X-Ray 10/11/17 14:31 IMPRESSION: Unchanged osteomyelitis at the 5th metatarsal osteotomy. Assessment & Plan - Diagnosis (1) Chest pain Qualifiers: Chest pain type: unspecified Qualified Code(s): R07.9 - Chest pain, unspecified Is this a current diagnosis for this admission?: Yes Plan: Informed that nuclear stress test is negative. May need further evaluation of chest pain. (2) Diabetes Qualifiers: Diabetes mellitus type: type 2 Diabetes mellitus complication status: with hyperglycemia Diabetes mellitus chcf insulin use: with buttermaker continuous churn use Qualified Code(s): E11.65 - Type 2 diabetes mellitus with hyperglycemia; Z79.4 - middle or intermediate school principal (current) use of insulin; Z79.4 - middle or intermediate school principal (current) use of insulin ; Z79.4 - middle or intermediate school principal (current) use of insulin; Z79.4 - group home (current) use of insulin Is this a current diagnosis for this admission?: Yes Plan: Increase long and short acting insulin (3) Diabetic infection of left foot Is this a current diagnosis for this admission?: Yes Plan: Ulcer to lateral aspect of left foot does not appear with active infection. Probable issue of poor healing is chronic osteomyelitis. Continue clindamycin p.o. since good bone penetration. Add septra ds since wound culture grew gpc and E coli. May need contiued wound care. Add vitamin C and multivitamin. (4) Hypertension Qualifiers: Hypertension type: essential hypertension Qualified Code(s): I10 - Essential (primary) hypertension Is this a current diagnosis for this admission?: Yes Plan: Opted not to reorder clonidine since no true benefit in cardiac function. Did not order atenolol due to recurring use of cocaine. Will increase Cardizem and continue lisinopril. May need further adjustment as outpatient since ECHO showing sign of left ventricular strain. (5) Anemia of chronic disease Is this a current diagnosis for this admission?: Yes Plan: Stable (6) Osteomyelitis Qualifiers: Osteomyelitis type: other chronic Osteomyelitis location: foot Is this a current diagnosis for this admission?: Yes Plan: Continue clindamycin orally (7) Pulmonary hypertension Is this a current diagnosis for this admission?: Yes Plan: Noted recent echocardiogram result. Concern this may relate to recurrent cocaine use versus sleep apnea. Patient will benefit of being tested for sleep apnea as outpatient. Anticipate progressive worsening of respiratory issues as well. (8) Acute on chronic congestive heart failure with left ventricular diastolic dysfunction Is this a current diagnosis for this admission?: No Plan: BNP appears under estimated due to obesity. Ruled out. Major issue is left ventricular diastolic dysfunction. Blood pressure control and will transition to oral lasix (9) Infestation by bed bug Is this a current diagnosis for this admission?: Yes (10) HIV (human immunodeficiency virus infection) Is this a current diagnosis for this admission?: Yes Plan: Continue outpatient regimen (11) Diastolic dysfunction without heart failure Is this a current diagnosis for this admission?: Yes Plan: Blood pressure control and transition to oral lasix - Time Time Spent with patient: 15-24 minutes Medications reviewed and adjusted accordingly: Yes Within: within 24 hours - Inpatient Certification Based on my medical assessment, after consideration of the patient's comorbidities, presenting symptoms, or acuity I expect that the services needed warrant INPATIENT care.: Yes I certify that my determination is in accordance with my understanding of Medicare's requirements for reasonable and necessary INPATIENT services [42 CFR 412.3e].: Yes Medical Necessity: Need Close Monitoring Due to Risk of Patient Decompensation
[2017-10-15] MEDS: OXYCODONE-ACETAMINOPHEN 5-325 MG TABLET PO PRN ×2 (06:10→12:37)
[2017-10-15] MEDS: CLINDAMYCIN HCL 150 MG CAPSULE PO SCH ×2 (06:10→13:26)
[2017-10-15] MEDS: HEPARIN SOD (PORCINE) 5,000 UNIT/ML 1 ML SYRINGE SUBCUT SCH ×2 (06:10→13:27)
[2017-10-15] MEDS: INSULIN LISPRO 100 UNIT/ML 3 ML VIAL SUBCUT SCH ×2 (08:41→12:37)
[2017-10-15] MEDS ORDERED: DILTIAZEM HCL 240 MG CAPSULE.CR PO SCH (10:00)
[2017-10-15] MEDS ORDERED: ASCORBIC ACID 500 MG TABLET PO SCH (10:00)
[2017-10-15] MEDS ORDERED: MULTIVITAMIN TABLET PO SCH (10:00)
--- NOTE | 2017-10-15 11:00 | PDOC DISCHARGE SUMMARY ---
General - Admit/Disc Date/PCP Admission Date/Primary Care Provider: 10/11/17 17:57 Discharge Date: 10/15/17 - Discharge Diagnosis (1) Diastolic dysfunction without heart failure Is this a current diagnosis for this admission?: Yes (2) Chest pain Is this a current diagnosis for this admission?: Yes (3) Diabetes Is this a current diagnosis for this admission?: Yes (4) Diabetic infection of left foot Is this a current diagnosis for this admission?: Yes (5) Hypertension Is this a current diagnosis for this admission?: Yes (6) Anemia of chronic disease Is this a current diagnosis for this admission?: Yes (7) Osteomyelitis Is this a current diagnosis for this admission?: Yes (8) Pulmonary hypertension Is this a current diagnosis for this admission?: Yes (9) Infestation by bed bug Is this a current diagnosis for this admission?: Yes (10) HIV (human immunodeficiency virus infection) Is this a current diagnosis for this admission?: Yes (11) Cocaine abuse Is this a current diagnosis for this admission?: Yes - Additional Information Resuscitation Status: Full Code Discharge Diet: Cardiac, Diabetic Discharge Activity: Activity As Tolerated, Balance Activity w/Rest, Weigh Daily Home Medications: Alprazolam [Xanax] 2 mg PO Q12 10/12/17 Amitriptyline HCl [Elavil 25 mg Tablet] 25 mg PO DAILY 10/12/17 Aripiprazole [Abilify] 20 mg PO QPM 10/12/17 Fluoxetine HCl [Prozac] 40 mg PO DAILY 10/12/17 Gabapentin [Neurontin 400 mg Capsule] 400 mg PO Q12 10/12/17 Simvastatin [Zocor 20 mg Tablet] 20 mg PO QHS 10/12/17 Torsemide [Demadex 20 mg Tablet] 20 mg PO DAILY 10/12/17 Ascorbic Acid [Vitamin C 500 mg Tablet] 500 mg PO BID tablet 10/15/17 Aspirin [Ecotrin 81 mg EC Tablet] 81 mg PO DAILY tabec 10/15/17 Clindamycin HCl [Cleocin 150 mg Capsule] 300 mg PO Q8 capsule 10/15/17 Diltiazem HCl [Cardizem Cd 240 mg Capsule.cr] 240 mg PO DAILY capsule.cr Insulin Detemir [Levemir Insulin 100 units/mL] 50 unit SUBCUT Q12 insuln.pen Insulin Lispro [Humalog Insulin (Lispro) 100 unit/mL] 0 - 12 unit SUBCUT [id number] PRN unit 10/15/17 Insulin Lispro [Humalog Insulin (Lispro) 100 unit/mL] 10 unit SUBCUT AC unit Lisinopril [Prinivil 10 mg Tablet] 10 mg PO DAILY tablet 10/15/17 Multivitamin [Tab-A-Jenn (Multiple Vitamin) Tablet] 1 tab PO DAILY tablet 10/15 Sulfamethoxazole/Trimethoprim [Septra-Ds 800-160 mg Tablet] 1 tab PO BID tablet 10/15/17 History of Present Illness History of Present Illness: MILADYS LONDON III is a 47 year old male presented to ED via ambulance complaining of midsternal chest pain after taking some cocaine. Stated had been doing cocaine off/on since last week because of his depression. Admits having a history of heart attack in the past due to cocaine. Patient also complains of shortness of breath. Pain got better after he was given nitrolycerin under his tongue. Patient has a history of diabetes and uses lantus. Has been having fever off on. Has been going to the wound care center due to ulcer in his left foot. 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 After evaluation of patient in ED , our service was contacted for further treatment. Hospital Course Hospital Course: Patient was admitted to telemetry unit. There were no cardiac dysrhythmias. Troponin remained negative. Patient persisted having chest pain and since he had never been evaluated in that regard ordered nuclear stress test which I was informed by Dr. Dodson that was negative. Patient was initially treated with IV Lasix out of concern of congestive heart failure since after reviewing his most recent echocardiogram back in July it showed the possibility of diastolic dysfunction versus failure. BNP was normal however, I believe is underestimated since he is obese. Shortness of breath and swelling of the legs improved. Congestive heart failure was ruled out and it was deemed that most of the problem related to diastolic dysfunction. We adjusted his antihypertensive regimen and discontinued atenolol and clonidine. Atenolol was discontinued because contraindicated in face of recurring use of cocaine. Patient was placed on diltiazem extended release, lisinopril and he is to continue the Demadex 20 mg p.o. daily. This patient will benefit from being evaluated for sleep apnea as this could also may be palying a role in his concerns of shortness of breath and wheezing. Patient has also been strongly encouraged as to quit cocaine due to possibility of massive stroke, heart attack , intestinal ischemia, cocaine induced pulmonary hypertension, etc.. He appears motivated and is hoping that when going to rehab he might be able to turn around. When he presented to ED there was a concern of infection of the left foot but when examining the wound appeared to be clean. Since he did show signs of osteomyelitis which at this point in time is deemed to be chronic opted to place him on clindamycin secondary to good bone penetration. Recommend for patient to be on clindamycin 300 mg p.o. 3 times daily for 4 weeks. We also placed patient on Septra DS 1 p.o. twice daily which he is to take for 7 days to cover E coli in wound. My understanding is that patient does go to wound care clinic. Patient suffers from HIV and recommend for patient to continue taking his own medications while he is in rehab. On the overall hospitalization was uneventful and he responded to intervention. Finally, patient suffers from diabetes mellitus type 2 which is poorly controlled. We tried to optimize Lantus, added pre-meal Humalog boluses and cover in addition with sliding scale. I strongly recommend custodial facility that upon discharge verify that patient has adequate follow-up care. Since patient had achieved maximum benefit of hospitalization stay prompted to discharge under stable condition. Physical Exam Vital Signs: Temp Pulse Resp BP Pulse Ox 98.8 F 89 16 168/98 H 97 10/14/17 17:00 10/15/17 02:00 10/14/17 17:00 10/14/17 17:00 10/14/17 17:00 Intake & Output 10/13/17 10/14/17 10/15/17 06:59 06:59 06:59 Intake Total 4811 4157 1304 Output Total 1360 2200 Balance 3451 1957 1304 Weight 109.5 kg 109.5 kg General appearance: PRESENT: no acute distress, cooperative, obese Head exam: PRESENT: atraumatic, normocephalic Eye exam: PRESENT: EOMI, PERRLA Ear exam: PRESENT: normal external ear exam Mouth exam: PRESENT: moist Teeth exam: PRESENT: poor dentation Neck exam: PRESENT: full ROM. ABSENT: JVD, tenderness, thyromegaly Respiratory exam: PRESENT: clear to auscultation vanessa Cardiovascular exam: PRESENT: RRR. ABSENT: diastolic murmur, systolic murmur Vascular exam: PRESENT: normal capillary refill GI/Abdominal exam: PRESENT: normal bowel sounds, soft. ABSENT: ascites, tenderness Extremities exam: PRESENT: pedal edema. ABSENT: joint swelling Musculoskeletal exam: PRESENT: ambulatory, full ROM, other - left foot ulcer covered with celan dressing Neurological exam: PRESENT: alert, oriented to person, oriented to place, oriented to time Psychiatric exam: PRESENT: depressed Results Laboratory Results: 10/14/17 06:47 10/14/17 06:47 10/14/17 10/14/17 06:47 06:47 WBC 5.3 RBC 3.85 L Hgb 10.1 L Hct 30.7 L MCV 80 MCH 26.1 L MCHC 32.8 RDW 17.9 H Plt Count 342 Seg Neutrophils % 50.4 Lymphocytes % 34.7 Monocytes % 11.0 Eosinophils % 2.1 Basophils % 1.8 Absolute Neutrophils 2.7 Absolute Lymphocytes 1.8 Absolute Monocytes 0.6 Absolute Eosinophils 0.1 Absolute Basophils 0.1 Sodium 138.4 Potassium 4.2 Chloride 102 Carbon Dioxide 25 Anion Gap 11 BUN 18 Creatinine 1.19 Est GFR ( Amer) > 60 Est GFR (Non-Af Amer) > 60 Glucose 225 H Calcium 9.0 Magnesium 1.7 10/12/17 10/12/17 04:15 04:15 Troponin I < 0.012 NT-Pro-B Natriuret Pep 120 Impressions: Chest X-Ray 10/11/17 14:05 IMPRESSION: NO ACUTE RADIOGRAPHIC FINDING IN THE CHEST. Foot X-Ray 10/11/17 14:31 IMPRESSION: Unchanged osteomyelitis at the 5th metatarsal osteotomy. Plan Discharge Plan: Discharge to custodial facility Time Spent: Greater than 30 Minutes
[2017-10-15] MEDS: ASPIRIN 81 MG TABLET, ENT COATED PO SCH (11:40)
[2017-10-15] MEDS: DOCUSATE SODIUM 100 MG CAPSULE PO SCH (11:41)
[2017-10-15] MEDS: INSULIN DETEMIR 100 UNIT/ML 3 ML PEN SUBCUT SCH (11:42)
[2017-10-15] MEDS: FUROSEMIDE 20 MG TABLET PO SCH (11:42)
[2017-10-15] MEDS: LISINOPRIL 10 MG TABLET PO SCH (11:42)
[2017-10-15] MEDS: SULFAMETHOXAZOLE/TRIMETHOPRIM 800-160 MG TABLET PO SCH (11:43)
[2017-10-15] MEDS: GABAPENTIN 300 MG CAPSULE PO SCH (11:43)
[2017-10-15] MEDS: INSULIN LISPRO 100 UNIT/ML 3 ML VIAL SUBCUT PRN (13:27)
[2017-10-15 14:31] VITALS: BP 154/99
--- NOTE | 2017-10-17 14:46 | DRAGON STRESS TEST REPORT ---
Intravenous Lexiscan Cardiolite stress test using single photon emmision computerized tomography. Date of procedure: 10-14-2017. Ordering Provider: Dr. Delores Sunshine. Patient's status: In Patient. Indication: Chest pain. Coronary risk factors: Age, diabetes mellitus, and hypertension. Resting EKG: Sinus Rhythm. Poor R-wave V1 to V6 leads. Stress EKG:[ No changes of ischemia. The patient no chest pain or discomfort, and there were no arrhythmias seen. Reason for termination: Protocol. Conclusions: Normal EKG and hemodynamic response to IV Lexiscan. Nuclear data: At rest the patient was given 14.08 millicuries of technetium 99m sestamibi injected intravenously. As per protocol rest non gated SPECT images were obtained. Subsequently the patient was given intravenous Lexiscan at a dose of 0.4 mg in 5 mL intravenously, followed by flush with normal saline. Subsequently the stress dose of millicuries of technetium 99m sestamibi was injected intravenously. As per protocol stress gated images were obtained. Nuclear interpretation: Review of images showed that all segments of the myocardium had normal perfusion at rest, and normal perfusion post stress with IV Lexiscan. All segments of the myocardium had normal motion, contraction, and thickening by gated study. T. I D. ratio was read as abnormal at 1.30. Visually this is not reliable computer read rest, and stress left ventricular ejection fraction were 63 %, and 58 %, respectively. Conclusion: 1. There is no scintigraphic evidence of Lexiscan induced myocardial ischemia. 2. There is no scintigraphic evidence of myocardial infarction/scar. Recommendations: Aggressive risk factor modification, and treating the underlying co- morbidities. MTDD
== END 2017-10-15 10:35 | DRG 303 ==
LOC: ER 14:04 → EH 17:57 → 4N 20:10
PROVIDERS: ADMIT Family Medicine; ATTEND Family Medicine
DX: I51.9 Heart disease, unspecified (principal); M86.672 Other chronic osteomyelitis, left ankle and foot; I25.10 Atherosclerotic heart disease of native coronary artery without angina pectoris; J44.9 Chronic obstructive pulmonary disease, unspecified; F31.9 Bipolar disorder, unspecified; F41.9 Anxiety disorder, unspecified; I73.9 Peripheral vascular disease, unspecified; F43.10 Post-traumatic stress disorder, unspecified; Z21 Asymptomatic human immunodeficiency virus [HIV] infection status; I25.2 Old myocardial infarction; Z96.651 Presence of right artificial knee joint; E66.01 Morbid (severe) obesity due to excess calories; E11.65 Type 2 diabetes mellitus with hyperglycemia; E11.621 Type 2 diabetes mellitus with foot ulcer; L97.524 Non-pressure chronic ulcer of other part of left foot with necrosis of bone; E78.5 Hyperlipidemia, unspecified; E11.22 Type 2 diabetes mellitus with diabetic chronic kidney disease; I12.9 Hypertensive chronic kidney disease with stage 1 through stage 4 chronic kidney disease, or unspecified chronic kidney disease; N18.9 Chronic kidney disease, unspecified; M19.90 Unspecified osteoarthritis, unspecified site; I27.20 Pulmonary hypertension, unspecified; B88.8 Other specified infestations; B96.20 Unspecified Escherichia coli [E. coli] as the cause of diseases classified elsewhere; E11.69 Type 2 diabetes mellitus with other specified complication; B95.2 Enterococcus as the cause of diseases classified elsewhere; F11.90 Opioid use, unspecified, uncomplicated; F14.10 Cocaine abuse, uncomplicated; D63.1 Anemia in chronic kidney disease; Z79.4 Long term (current) use of insulin; Z68.35 Body mass index [BMI] 35.0-35.9, adult; Z88.0 Allergy status to penicillin; Z89.421 Acquired absence of other right toe(s); Z86.711 Personal history of pulmonary embolism; Z89.422 Acquired absence of other left toe(s); Z82.49 Family history of ischemic heart disease and other diseases of the circulatory system; Z83.6 Family history of other diseases of the respiratory system; Z83.3 Family history of diabetes mellitus; Z86.14 Personal history of Methicillin resistant Staphylococcus aureus infection; Z79.899 Other long term (current) drug therapy; Z79.2 Long term (current) use of antibiotics
CPT/HCPCS: 36415; 71010; 78452; 80048; 80053; 80074; 80307; 81001; 82550; 82553; 82803; 82962; 83036; 83735; 83880; 84443; 84484; 85025; 85652; 87040; 87070; 87077; 87186; 87205; 93005; 93010; 93017; 96360; 99285; A9500; G8978-GP; G8979-GP; J1644; J1815; J1940; J1956; J2270; J2785; J3490; J7030; L1902; Q9969

== ENCOUNTER 2017-11-16 11:33 | Emergency (ER) | payer MEDICAID, MEDICARE ==
--- NOTE | 2017-11-16 12:00 | ER Document Report ---
ED General - General Chief Complaint: Fall Injury Stated Complaint: FALL LEFT HIP PAIN Time Seen by Provider: 11/16/17 11:49 TRAVEL OUTSIDE OF THE [place] IN LAST 30 DAYS: No - HPI Notes: Patient is a 47-year-old male with a past medical history significant for insulin-dependent diabetes, HIV, chronic kidney disease stage III, toe amputation who presents the ED complaining of left hip pain status post fall prior to arrival. Patient states that he was walking to the store when he stepped into a pothole and fell landing on his left hip. Patient states that he has had pain there since then that is described as a soreness. Patient states that he did not try to walk and was brought here by EMS. Patient states that he still can move his leg through range of motion, but does have soreness to the area. He has not noticed any obvious bruising or swelling otherwise. Denies any headache, fever, head injury, LOC, neck pain, changes in vision/ speech/mentation/hearing, URI, sore throat, chest pain, palpitations, syncope, cough, shortness of breath, wheeze, dyspnea, abdominal pain, nausea/vomiting/ diarrhea, urinary retention, dysuria, hematuria, loss of control of bowel or bladder, numbness/tingling, saddle anesthesia, muscle paralysis/weakness, or rash. - Related Data Allergies/Adverse Reactions: Penicillins Allergy (Verified 09/03/17 10:43) rash Past Medical History - Social History Smoking Status: Unknown if Ever Smoked Family History: Arthritis, CAD, COPD, CVA, DM, Hyperlipidemia, Hypertension. denies: Malignancy, Thyroid Disfunction - Past Medical History Cardiac Medical History: Reports: Hx Coronary Artery Disease, Hx Heart Attack, Hx Hypercholesterolemia, Hx Hypertension, Hx Peripheral Vascular Disease, Hx Pulmonary Embolism Pulmonary Medical History: Reports: Hx Asthma, Hx COPD, Hx Pneumonia - 1 year ago Neurological Medical History: Reports: Hx Seizures - Patient had a seizure in 2012. Depakote stopped by his physician. Endocrine Medical History: Reports: Hx Diabetes Mellitus Type 1, Hx Diabetes Mellitus Type 2 - Patient is a poorly compliant, poorly controlled diabetic who uses insulin. Renal/ Medical History: Reports: Hx Renal Insufficiency. Denies: Hx Peritoneal Dialysis Malignancy Medical History: GI Medical History: Musculoskeltal Medical History: Reports Hx Arthritis, Reports Hx Musculoskeletal Deformity, Reports Hx Musculoskeletal Trauma Skin Medical History: Reports Hx MRSA Psychiatric Medical History: Reports: Hx Anxiety, Hx Bipolar Disorder, Hx Depression, Hx Post Traumatic Stress Disorder Traumatic Medical History: Reports: Hx Fractures - Knee pelvis and hand Infectious Medical History: Reports: Hx HIV - Patient reports no detectable viral count, Hx MRSA Past Surgical History: Reports: Hx Oral Surgery - Removal of most of teeth, Hx Orthopedic Surgery - right knee replacement, rt toe amputation; amputation 2 left toes., Other - Laser eye surgery PICC line placement, wound debridement - Immunizations Immunizations up to date: Yes Hx Diphtheria, Pertussis, Tetanus Vaccination: Yes Hx Pneumococcal Vaccination: 11/09/13 Review of Systems - Review of Systems Notes: REVIEW OF SYSTEMS: CONSTITUTIONAL : Denies fever, chills, or sweats. Denies recent illness. EENT: Denies eye, ear, throat, or mouth pain or symptoms. Denies nasal or sinus congestion or discharge. Denies throat, tongue, or mouth swelling or difficulty swallowing. CARDIOVASCULAR: Denies chest pain. Denies palpitations or racing or irregular heart beat. Denies ankle edema. RESPIRATORY: Denies cough, cold, or chest congestion. Denies shortness of breath, difficulty breathing, or wheezing. GASTROINTESTINAL: Denies abdominal pain or distention. Denies nausea, vomiting , or diarrhea. Denies blood in vomitus, stools, or per rectum. Denies black, tarry stools. Denies constipation. GENITOURINARY: Denies difficulty urinating, painful urination, burning, frequency, blood in urine, or discharge. MUSCULOSKELETAL: see hpi SKIN: Denies rash, lesions or sores. NEUROLOGICAL: Denies confusion or altered mental status. Denies passing out or loss of consciousness. Denies dizziness or lightheadedness. Denies headache. Denies weakness or paralysis or loss of use of either side. Denies problems with gait or speech. Denies sensory loss, numbness, or tingling. Denies seizures. ALL OTHER SYSTEMS REVIEWED AND NEGATIVE. Dictation was performed using [employer] voice recognition software Physical Exam - Vital signs Vitals: Temp Pulse Resp BP Pulse Ox 97.6 F 91 16 167/102 H 98 11/16/17 11:51 11/16/17 11:51 11/16/17 11:51 11/16/17 11:51 11/16/17 11:51 Notes: PHYSICAL EXAMINATION: GENERAL: Well-appearing, well-nourished and in no acute distress. A&Ox4 LUNGS: Breath sounds clear to auscultation bilaterally and equal. No wheezes rales or rhonchi. HEART: Regular rate and rhythm without murmurs, rubs, gallops. ABDOMEN: Soft, nontender, nondistended abdomen. No guarding, no rebound. No masses appreciated. Normal bowel sounds present. No CVA tenderness bilaterally. Musculoskeletal: Lt hip: + tenderness to the left lateral hip. No obvious swelling, deformity, erythema, or ecchymosis noted. FROM to passive/active. Strength 5+/5. N/V intact distal. Ext b/l: FROM to passive/active. Strength 5+/5. N/V intact distal. No deficits noted. No other bony tenderness of extremities. Back: FROM to passive/active. Strength 5+/5. No vertebral point tenderness, stepoffs, or deformities. No other bony tenderness or ecchymosis. Extremities: No cyanosis, clubbing, or edema b/l. Peripheral pulses 2+. Capillary refill less than 2 seconds. NEUROLOGICAL: MMSE intact. Normal speech. Normal sensory, motor exams. Reflexes 2+ b/l. PSYCH: Normal mood, normal affect. SKIN: Warm, Dry, normal turgor, no rashes or lesions noted. Course - Re-evaluation Re-evalutation: 11/16/17 12:49 Patient is an afebrile, well-hydrated, 47-year-old male who presents to the ED with left hip contusion status post fall. Vitals are stable. PE is otherwise unremarkable for any neurovascular compromise, obvious tendon/ligament rupture, obvious fracture/dislocation, septic joint. X-ray was unremarkable for any acute pathology. Patient is able to ambulate greater than 5 steps without assistance. Crutches will be provided for use as needed. I will send him home with a prescription for naproxen as well. Conservative measures for symptoms otherwise. Recheck with your PCM in 3-5 days. Consider consult with orthopedics and physical therapy. Return to the ED with any worsening/ concerning symptoms otherwise as reviewed in discharge. Patient is in agreement. - Vital Signs Vital signs: Temp Pulse Resp BP Pulse Ox 97.6 F 91 16 167/102 H 98 11/16/17 11:51 11/16/17 11:51 11/16/17 11:51 11/16/17 11:51 11/16/17 11:51 Discharge - Discharge Clinical Impression: Contusion of left hip Qualifiers: Encounter type: initial encounter Qualified Code(s): S70.02XA - Contusion of left hip, initial encounter Condition: Stable Disposition: HOME, SELF-CARE Instructions: Contusion ([facility]) Additional Instructions: Rest, Ice Use crutches Tylenol/ibuprofen as needed Light stretches daily Strength exercises as able Moist heat and massage may help F/u with your PCP in 3-5 days for a recheck Consider consult(s) with Orthopedics/physical therapy for ongoing/worsening symptoms Return to the ED with any worsening symptoms and/or development of fever, headache, chest pain, palpitations, syncope, shortness of breath, trouble breathing, abdominal pain, n/v/d, blood in stool/urine, loss of control of bowel /bladder, urinary retention, muscle weakness/paralysis, saddle anesthesia, numbness/tingling, or other worsening symptoms that are concerning to you. Prescriptions: Naproxen 500 mg PO BID PRN #30 tablet PRN Reason: Forms: Elevated Blood Pressure Referrals: [facility] [Provider Group] - Follow up as needed
--- NOTE | 2017-11-16 12:39 | RADIOLOGY REPORT (SQ) ---
EXAM DESCRIPTION: HIP LEFT AP/LATERAL COMPLETED DATE/TIME: 11/16/2017 12:16 pm REASON FOR STUDY: left hip pain s/p fall COMPARISON: AP pelvis 09/30/2017 NUMBER OF VIEWS: Two views. TECHNIQUE: AP pelvis and additional frog-leg view of the left hip. LIMITATIONS: None. FINDINGS: MINERALIZATION: Normal. LEFT HIP: No fracture or dislocation. Mild joint space narrowing without bony spurring. No worrisom e bone lesions. RIGHT HIP: No fracture or dislocation. Mild joint space narrowing without bony spurring. No worriso me bone lesions. PUBIS AND ISCHIUM: No fracture. PELVIS: No fracture. SACRUM: No fracture or dislocation. No worrisome bone lesions. LOWER LUMBAR SPINE: Transitional anatomy, large left L5 transverse process articulating with the uppe r sacrum SOFT TISSUES: No findings. OTHER: No other significant finding. IMPRESSION: No acute changes TECHNICAL DOCUMENTATION: JOB ID: [id number] [employer]- All Rights Reserved
[2017-11-16 13:12] VITALS: BP 162/106
== END 2017-11-16 13:12 | disposition home or self-care (01) ==
LOC: ER 11:33
DX: S70.02XA Contusion of left hip, initial encounter (principal); W00.0XXA Fall on same level due to ice and snow, initial encounter; Y93.89 Activity, other specified; E11.9 Type 2 diabetes mellitus without complications; I10 Essential (primary) hypertension; I25.10 Atherosclerotic heart disease of native coronary artery without angina pectoris; Z88.0 Allergy status to penicillin; Z21 Asymptomatic human immunodeficiency virus [HIV] infection status
CPT/HCPCS: 99284

== ENCOUNTER 2017-12-10 15:34 | Emergency (ER) | payer MEDICARE, MEDICAID ==
[2017-12-10] MEDS ORDERED: NORMAL SALINE 1000 ML 1,000 ML IV ONE ×2 (16:08→16:15)
[2017-12-10] MEDS ORDERED: ONDANSETRON HCL INJ/PF 4 MG/2 ML SDV IV ONE (16:15)
[2017-12-10] MEDS ORDERED: KETOROLAC TROMETHAMINE INJ/PF 30 MG/1 ML SDV IV ONE (16:15)
[2017-12-10 16:29] LABS: ABSOLUTE BASOPHILS # (AUTO) 0.1 10^3/uL (0.0-0.2); ABSOLUTE EOSINOPHILS # (AUTO) 0.1 10^3/uL (0.0-0.6); ABSOLUTE LYMPHOCYTES (AUTO) 1.4 10^3/uL (0.5-4.7); ABSOLUTE MONOCYTES (AUTO) 0.7 10^3/uL (0.1-1.4); ABSOLUTE NEUT (AUTO) 3.6 10^3/uL (1.7-8.2); HEMATOCRIT 34.6 % (37.9-51.0); HEMOGLOBIN 11.4 g/dL (13.5-17.0); LYMPHOCYTES % (AUTO) 24.4 % (13-45); MEAN CORPUSCULAR HEMOGLOBIN 26.6 pg (27.0-33.4); MEAN CORPUSCULAR VOLUME 81 fl (80-97); MONOCYTES % (AUTO) 11.4 % (3-13); PLATELET COUNT 222 10^3/uL (150-450); RED BLOOD COUNT 4.29 10^6/uL (4.35-5.55); RED CELL DISTRIBUTION WIDTH 15.7 % (11.5-14.0); SEGMENTED NEUTROPHILS % (AUTO) 62.2 % (42-78); TOTAL CELLS COUNTED % (AUTO) 100 %; VENOUS BLOOD BASE EXCESS 0.3 mmol/L; VENOUS BLOOD HCO3 26.7 mmol/L (20-32); VENOUS BLOOD PCO2 50.9 mmHg (35-63); VENOUS BLOOD PH 7.34 (7.30-7.42); WHITE BLOOD COUNT 5.8 10^3/uL (4.0-10.5)
[2017-12-10 16:36] LABS: INTERNATIONAL RATION (INR) 0.88; PROTHROMBIN TIME 12.6 SEC (11.4-15.4)
[2017-12-10 16:49] LABS: ALANINE AMINOTRANSFERASE 21 U/L (21-72); ALBUMIN 4.1 g/dL (3.5-5.0); ALKALINE PHOSPHATASE 135 U/L (38-126); ANION GAP 12 (5-19); ASPARTATE AMINO TRANSFERASE 20 U/L (17-59); BILIRUBIN,DIRECT 0.5 mg/dL (0.0-0.4); BILIRUBIN,TOTAL 0.5 mg/dL (0.2-1.3); BLOOD UREA NITROGEN 17 mg/dL (7-20); CALCIUM 9.2 mg/dL (8.4-10.2); CARBON DIOXIDE 25 mmol/L (22-30); CHLORIDE 95 mmol/L (98-107); POTASSIUM 5.3 mmol/L (3.6-5.0); SODIUM 131.8 mmol/L (137-145); TOTAL PROTEIN 8.1 g/dL (6.3-8.2)
[2017-12-10 16:57] LABS: GLUCOSE 547 mg/dL (75-110)
--- NOTE | 2017-12-10 17:02 | RADIOLOGY REPORT (SQ) ---
EXAM DESCRIPTION: FOOT LEFT COMPLETE COMPLETED DATE/TIME: 12/10/2017 4:48 pm REASON FOR STUDY: diabetic foot wound eval continued osteo COMPARISON: 10/11/2017, 09/30/2017, 08/30/2017 NUMBER OF VIEWS: Three views. TECHNIQUE: AP, lateral and oblique radiographic images acquired of the left foot. LIMITATIONS: None. FINDINGS: Again, there is a soft tissue ulcer over the distal stump of the 5th metatarsal. There is periosteal new bone at the distal 5th metatarsal, similar compared to 10/11/2017 and 11/30/2016. Small soft tissue calcifications/ossifications just lateral to the 4th metatarsal head are stable. Old amputations of the 2nd and 3rd toes, stable. Mild forefoot soft tissue swelling. IMPRESSION: No change from 10/11/2017 TECHNICAL DOCUMENTATION: JOB ID: [id number] [employer]- All Rights Reserved
[2017-12-10 17:51] LABS: APPEARANCE,URINE CLEAR; BILIRUBIN,URINE NEGATIVE (NEGATIVE); COLOR,URINE STRAW; GLUCOSE, URINE >=500 mg/dL (NEGATIVE); KETONES,URINE NEGATIVE (NEGATIVE); LEUKOCYTE ESTERASE,URINE NEGATIVE (NEGATIVE); NITRITE,URINE NEGATIVE (NEGATIVE); PROTEIN,URINE 100 mg/dL (NEGATIVE); UROBILINOGEN,URINE NEGATIVE mg/dL (<2.0)
[2017-12-10 18:52] LABS: URINE AMPHETAMINES SCREEN NEGATIVE; URINE BARBITURATES SCREEN NEGATIVE; URINE BENZODIAZEPINES SCREEN NEGATIVE; URINE COCAINE SCREEN UNCONFIRMED POSITIVE; URINE MARIJUANA (THC) SCREEN NEGATIVE; URINE METHADONE SCREEN NEGATIVE; URINE PHENCYCLIDINE SCREEN NEGATIVE
--- NOTE | 2017-12-10 18:57 | EKG REPORT ---
SEVERITY:- BORDERLINE ECG - SINUS TACHYCARDIA LA ABNORMALITY : Confirmed by: Wesley Zamora MD 10-Dec-2017 18:56:50
[2017-12-10] MEDS ORDERED: INSULIN REG, HUMAN 100 UNIT/ML 3 ML VIAL (PYX) SUBCUT ONE (20:01)
--- NOTE | 2017-12-10 21:12 | ER Document Report ---
ED Extremity Problem, Lower - General Chief Complaint: Foot Injury Stated Complaint: FOOT PAIN Time Seen by Provider: 12/10/17 15:51 TRAVEL OUTSIDE OF THE [place] IN LAST 30 DAYS: No - HPI Notes: Patient has a history of diabetes HIV. Patient's has a chronic wound to the left foot. Patient was recently admitted placed on clindamycin for foot wound and osteomyelitis. Patient states he has not followed up with the wound care clinic did finish a fall with antibiotics he was prescribed with. Patient also states to have nausea vomiting. Patient otherwise states he has been compliant with his medications states he is not taking anymore cocaine. Patient resting comfortably upon my evaluation. - Related Data Allergies/Adverse Reactions: Penicillins Allergy (Verified 09/03/17 10:43) rash Past Medical History - Social History Smoking Status: Current Every Day Smoker Chew tobacco use (# tins/day): No Frequency of alcohol use: None Drug Abuse: None Family History: Arthritis, CAD, COPD, CVA, DM, Hyperlipidemia, Hypertension. denies: Malignancy, Thyroid Disfunction Patient has suicidal ideation: No Patient has homicidal ideation: No - Past Medical History Cardiac Medical History: Reports: Hx Coronary Artery Disease, Hx Heart Attack, Hx Hypercholesterolemia, Hx Hypertension, Hx Peripheral Vascular Disease, Hx Pulmonary Embolism Pulmonary Medical History: Reports: Hx Asthma, Hx COPD, Hx Pneumonia - 1 year ago Neurological Medical History: Reports: Hx Seizures - Patient had a seizure in 2012. Depakote stopped by his physician. Endocrine Medical History: Reports: Hx Diabetes Mellitus Type 1, Hx Diabetes Mellitus Type 2 - Patient is a poorly compliant, poorly controlled diabetic who uses insulin. Renal/ Medical History: Reports: Hx Renal Insufficiency. Denies: Hx Peritoneal Dialysis Malignancy Medical History: GI Medical History: Musculoskeltal Medical History: Reports Hx Arthritis, Reports Hx Musculoskeletal Deformity, Reports Hx Musculoskeletal Trauma Skin Medical History: Reports Hx MRSA Psychiatric Medical History: Reports: Hx Anxiety, Hx Bipolar Disorder, Hx Depression, Hx Post Traumatic Stress Disorder Traumatic Medical History: Reports: Hx Fractures - Knee pelvis and hand Infectious Medical History: Reports: Hx HIV - Patient reports no detectable viral count, Hx MRSA Past Surgical History: Reports: Hx Oral Surgery - Removal of most of teeth, Hx Orthopedic Surgery - right knee replacement, rt toe amputation; amputation 2 left toes., Other - Laser eye surgery PICC line placement, wound debridement - Immunizations Immunizations up to date: Yes Hx Diphtheria, Pertussis, Tetanus Vaccination: Yes Hx Pneumococcal Vaccination: 11/09/13 Review of Systems - Review of Systems Constitutional: No symptoms reported EENT: No symptoms reported Cardiovascular: No symptoms reported Respiratory: No symptoms reported Gastrointestinal: No symptoms reported Genitourinary: No symptoms reported Male Genitourinary: No symptoms reported Musculoskeletal: Other - Left foot pain when with nausea Skin: No symptoms reported Hematologic/Lymphatic: No symptoms reported Neurological/Psychological: No symptoms reported Physical Exam - Vital signs Vitals: Temp Pulse Resp BP Pulse Ox 98.0 F 117 H 18 173/112 H 98 12/10/17 15:40 12/10/17 15:40 12/10/17 15:40 12/10/17 15:40 12/10/17 15:40 Interpretation: Tachycardic - General General appearance: Appears well, Alert - HEENT Head: Normocephalic, Atraumatic Eyes: Normal Pupils: PERRL - Respiratory Respiratory status: No respiratory distress Chest status: Nontender Breath sounds: Normal Chest palpation: Normal - Cardiovascular Rhythm: Regular Heart sounds: Normal auscultation Murmur: No - Abdominal Inspection: Normal Distension: No distension Bowel sounds: Normal Tenderness: Nontender Organomegaly: No organomegaly - Back Back: Normal, Nontender - Extremities General upper extremity: Normal inspection, Nontender, Normal color, Normal ROM , Normal temperature General lower extremity: Nontender, Normal color, Normal ROM, Normal temperature , Normal weight bearing. No: Normal inspection - Patient with amputations to the toes of the left foot with open wound with good granulation tissue well- healing no signs of any discharge at the fifth metatarsal is no bone exposure along the very no signs of overt gangrene or necrotic tissue, Nikolay's sign - Neurological Neuro grossly intact: Yes Cognition: Normal Orientation: AAOx4 [place] Coma Scale Eye Opening: Spontaneous [place] Coma Scale Verbal: Oriented [place] Coma Scale Motor: Obeys Commands [place] Coma Scale Total: 15 Speech: Normal Motor strength normal: LUE, RUE, LLE, RLE Sensory: Normal - Psychological Associated symptoms: Normal affect, Normal mood - Skin Skin Temperature: Warm Skin Moisture: Dry Skin Color: Normal Course - Re-evaluation Re-evalutation: 12/10/17 23:25 Laboratory studies showed patient positive for cocaine also elevated blood sugars. Patient was given IV fluids and insulin. Foot x-ray continue to showed osteomyelitis however there is no signs of overt sepsis no elevation in white count. This could be explained by delayedChanges of the bone on the x- ray. Patient is afebrile no white count no signs of sepsis patient will be discharged home I will place a consult in for our social team to contact the patient to discuss options as far as wound care and getting the patient to the wound care clinic. - Vital Signs Vital signs: Temp Pulse Resp BP Pulse Ox 98.4 F 88 20 155/99 H 98 12/10/17 21:55 12/10/17 21:55 12/10/17 21:55 12/10/17 21:55 12/10/17 21:55 - Laboratory Result Diagrams: 12/10/17 16:08 12/10/17 16:08 Laboratory results interpreted by me: 12/10/17 12/10/17 12/10/17 16:08 16:08 17:25 RBC 4.29 L Hgb 11.4 L Hct 34.6 L MCH 26.6 L RDW 15.7 H Sodium 131.8 L Potassium 5.3 H Chloride 95 L Creatinine 1.63 H Est GFR ( Amer) 55 L Est GFR (Non-Af Amer) 45 L Glucose 547 H* Direct Bilirubin 0.5 H Alkaline Phosphatase 135 H Urine Protein 100 H Urine Glucose (UA) >=500 H Discharge - Discharge Clinical Impression: Cocaine abuse, Diabetic foot wound, Hyperglycemia Diabetes Qualifiers: Diabetes mellitus type: other specified (including KAYCEE) Diabetes mellitus complication status: with unspecified complications Diabetes mellitus supervisor intermediates insulin use: unspecified supervisor intermediates insulin use status Qualified Code(s): E13.8 - Other specified diabetes mellitus with unspecified complications Nausea & vomiting Qualifiers: Vomiting type: unspecified Vomiting Intractability: unspecified Qualified Code( s): R11.2 - Nausea with vomiting, unspecified Condition: Good Disposition: HOME, SELF-CARE Instructions: Diabetes ([facility]), Foot or Leg Ulcer ([facility]), Gastroenteritis (adult) ([facility]), Vomiting ([facility]) Additional Instructions: Your laboratory studies still show signs of cocaine use. Please make sure that she avoid cocaine is that this will cause exacerbation of your medical issues. Return to the ER if symptoms worsen. Evaluation of the wound today shows good wound margins no signs of overt infection. Your x-ray does not show any acute changes. I would highly recommend he follow-up with wound care. I will have our social sciences lecturer contact you to evaluate for metastases of the transport so that she can see wound care. Please take your insulin as prescribed. Return to ER symptoms worsen. Prescriptions: Ondansetron [Zofran Odt] 4 mg PO Q6 PRN #30 tab.rapdis PRN Reason: For Nausea/Vomiting Promethazine HCl [Phenergan 25 mg Tablet] 25 mg PO Q6 #30 tablet Forms: Return to Work Referrals: Wound Care [Provider Group] - Follow up as needed
[2017-12-10 21:56] VITALS: BP 155/99
== END 2017-12-10 21:30 | disposition home or self-care (01) ==
LOC: ER 15:34
DX: F14.10 Cocaine abuse, uncomplicated (principal); S91.302A Unspecified open wound, left foot, initial encounter; X58.XXXA Exposure to other specified factors, initial encounter; E11.65 Type 2 diabetes mellitus with hyperglycemia; R11.2 Nausea with vomiting, unspecified; Z21 Asymptomatic human immunodeficiency virus [HIV] infection status; Z88.0 Allergy status to penicillin; I25.10 Atherosclerotic heart disease of native coronary artery without angina pectoris; I25.2 Old myocardial infarction; J44.9 Chronic obstructive pulmonary disease, unspecified; Z86.14 Personal history of Methicillin resistant Staphylococcus aureus infection
CPT/HCPCS: 93005; 99284; 96360; 36415; 87040; 87086; 82962; 85025; 85610; 80053; 81001; 80307; 82803; 83605; 73630; 93010; J1885; A9270; J2405; J7030; J1815

== ENCOUNTER → 2017-12-13 | Outpatient (CLI) | payer MEDICARE, MEDICAID ==
--- NOTE | 2017-12-13 16:54 | RADIOLOGY REPORT (SQ) ---
EXAM DESCRIPTION: MRI LUMBAR SPINE WITHOUT COMPLETED DATE/TIME: 12/13/2017 1:34 pm REASON FOR STUDY: UNSPECIFIED FRACTURE OF UNSPECIFIED LUMBAR VEREBRA S32.009A UNSP FRACTURE OF UNSP LUMBAR VERTEBRA, INIT FOR LUPE COMPARISON: None. TECHNIQUE: Sagittal and Axial imaging includes T1, T2, STIR and gradient echo sequences. Coronal T2/ HASTE imaging. LIMITATIONS: None. FINDINGS: VISUALIZED UPPER ABDOMEN: Limited evaluation. No acute or suspicious findings suggested. SEGMENTATION: There is transitional anatomy, with a large left L5 transverse process articulating wit h the upper sacrum ALIGNMENT: Anatomic. VERTEBRAE: Intact. BONE MARROW: Normal. No marrow replacement or reactive changes. DISC SIGNAL: Normal. No significant abnormal signal or loss of height. POSTERIOR ELEMENTS: Generally intact. No pars defect evident. HARDWARE: None in the spine. CORD AND CONUS: Normal in size and signal intensity. Conus at the T12 level. SOFT TISSUES: No aortic aneurysm seen. No bulky retroperitoneal adenopathy or mass. No paraspinal mas s or fluid. L1-L2: No significant spinal stenosis or exit foraminal stenosis. L2-L3: No significant spinal stenosis or exit foraminal stenosis. L3-L4: No significant spinal stenosis or exit foraminal stenosis. Mild bilateral facet hypertrophy L4-L5: No significant posterior disc bulging. Very bulky bilateral facet hypertrophy is present with fluid in the facet joints. Mild bilateral inferior foraminal narrowing without exiting L4 nerve ni t impingement L5-S1: No significant spinal stenosis or exit foraminal stenosis. Moderate bilateral facet hypertrop hy LOWER THORACIC: Incompletely imaged. No stenosis seen. SACRUM: Visualized upper sacrum intact. OTHER: No other significant findings. IMPRESSION: Multilevel facet arthropathy most pronounced at L4-5 TECHNICAL DOCUMENTATION: JOB ID: [id number]- All Rights Reserved
== END ==
LOC: RAD 12:50
PROVIDERS: ATTEND Physician Assistant
DX: S32.009A Unspecified fracture of unspecified lumbar vertebra, initial encounter for closed fracture (principal); X58.XXXA Exposure to other specified factors, initial encounter
CPT/HCPCS: 72148